=== PATIENT | female | born 1975 | race Caucasian/White ===

== ENCOUNTER 2016-11-14 08:00 | Day surgery (SDC) | payer BC, MEDICAID ==
[2016-11-14] MEDS ORDERED: Lactated Ringers 1,000 ML IV ONE (08:30)
[2016-11-14] MEDS ORDERED: Cyanocobalamin (Vitamin B12) 1,000 MCG/ML SDV IM ONE (08:30)
[2016-11-14] MEDS ORDERED: Propofol 200 MG/20 ML SDV ONE (09:09)
[2016-11-14] MEDS ORDERED: Midazolam 1 MG/ML 2 ML SDV ONE (09:09)
[2016-11-14] MEDS ORDERED: fentaNYL 100 MCG/2 ML SDV ONE (09:09)
[2016-11-14] MEDS ORDERED: Lidocaine 1% 2 ML ONE (09:22)
[2016-11-14] MEDS ORDERED: Glycopyrrolate 0.2 MG/ML 2 ML SYRINGE IVPUSH ONE (09:30)
[2016-11-14] MEDS ORDERED: MVI, Adult with Vitamin K 10 ML, Thiamine 200 MG, Chromium/Copper/Mang/Selen/Zn 1 ML in... IV ONE ×4 (10:00)
[2016-11-14 13:24] VITALS: BP 121/65
--- NOTE | 2016-11-22 15:19 | OR ---
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 OPERATIVE PROCEDURE: Upper GI endoscopy with dilation of esophagojejunostomy. ANESTHESIA: IV sedation. INDICATION FOR PROCEDURE: This is a 41-year-old status post total gastrectomy for severe gastroparesis. She did have problems with stricturing at her esophagojejunostomy. Plan is to proceed with an upper GI endoscopy with dilation as indicated. Potential risks including bleeding and perforation were discussed, and the patient wishes to proceed. DETAILS OF PROCEDURE: The patient was taken to the operating room and placed in a left lateral decubitus position. IV sedation was administered, after which the upper GI endoscope was passed orally through the length of the esophagus and into the area of the esophagojejunostomy. No retained food or fluid was noted. The patient was noted to have moderate stricture at that level. A Bard gastrointestinal balloon catheter was centered across the anastomosis and inflated to 36-[place]an size and it was held in position for 1 minute, after which the balloon catheter was deflated and withdrawn. The scope could easily then be passed through the anastomosis. No complications were noted. The scope was then withdrawn, and the procedure then concluded. The patient had a fair bit of inflammation present. We will have her restart the omeprazole 20 mg a day and have her continue the Carafate liquid 500 mg q.i.d. as well as Mylanta to be taken p.r.n. to facilitate improved oral intake. Jese Grissom MD /[id number]
== END 2016-11-14 12:30 | disposition home or self-care (01) ==
LOC: JP.SDS 08:00
PROVIDERS: ATTEND Surgery
DX: K91.89 Other postprocedural complications and disorders of digestive system (principal); K21.9 Gastro-esophageal reflux disease without esophagitis; J45.909 Unspecified asthma, uncomplicated; Z91.040 Latex allergy status; Z91.018 Allergy to other foods
CPT/HCPCS: 43233; J2250; J2704; J3010; J3411; J7120

== ENCOUNTER 2016-11-18 07:00 | Day surgery (SDC) | payer BC, MEDICAID ==
[~2016-11-18 07:00] MED LIST: Bupivacaine 0.5% 50 ML MDV ONE; Bupivacaine 0.5%/EPINEPHrine 1:200,000 50 ML MDV ONE; Lidocaine 0.5% 50 ML SDV ONE; Lidocaine 1% with EPINEPHrine 1:100,000 50 ML MDV ONE
[2016-11-18] MEDS ORDERED: Dextrose 5%-Lactated Ringers 1,000 ML IV SCH (07:45)
[2016-11-18] MEDS ORDERED: ceFAZolin 2 GM in Sodium Chloride 0.9% 50 ML IV ONE (08:00)
[2016-11-18] MEDS ORDERED: Glycopyrrolate 0.2 MG/ML 2 ML SYRINGE IVPUSH ONE (08:15)
[2016-11-18] MEDS ORDERED: fentaNYL 100 MCG/2 ML SDV ONE (08:53)
[2016-11-18] MEDS ORDERED: Midazolam 1 MG/ML 2 ML SDV ONE (08:54)
[2016-11-18] MEDS ORDERED: Propofol 200 MG/20 ML SDV ONE ×2 (08:54→09:35)
[2016-11-18] MEDS ORDERED: MVI, Adult with Vitamin K 10 ML, Thiamine 100 MG, Chromium/Copper/Mang/Selen/Zn 1 ML in... IV ONE ×4 (09:00)
[2016-11-18] MEDS ORDERED: Magnesium Citrate Solution 296 ML Bottle PO ONE (09:45)
[2016-11-18] MEDS ORDERED: Lactated Ringers 1,000 ML IV SCH (11:00)
[2016-11-18 12:00] VITALS: BP 131/77
--- NOTE | 2016-11-27 11:51 | OR ---
DATE OF PROCEDURE: 11/18/2016 PREOPERATIVE DIAGNOSES: 1. Recurrent stricturing at esophagojejunostomy. 2. Limited peripheral venous access. POSTOPERATIVE DIAGNOSES: 1. Recurrent stricturing at esophagojejunostomy. 2. Limited peripheral venous access. PROCEDURE: 1. Placement of double-lumen Rivers catheter via left subclavian vein approach (58789). 2. Upper gastrointestinal endoscopy with dilation of esophagojejunostomy (76302). ANESTHESIA: Local plus IV sedation. INDICATION FOR PROCEDURE: This is a 41-year-old status post total gastrectomy on 10/26/2016. She has had problems with recurrent stricturing at her esophagojejunostomy. This may be related to the patient recently having had a Nigel fundoplication, and the setting at the time of the gastrectomy was that of some ongoing subacute inflammation. At any rate, the plan is to proceed with upper GI endoscopy with dilation of the anastomosis as indicated. In addition, she has very limited peripheral venous access, and I think we are going to be needing to use some IVs intermittently for the next few weeks, and a Rivers catheter, therefore, will be placed. Potential risks of the procedure including bleeding, perforation, pneumohemothorax, injury to the vascular with Rivers catheter placement were gone over, and the patient wishes to proceed. DETAILS OF PROCEDURE: The patient was taken to the operating room and placed in a supine position. IV sedation was administered, after which the upper chest and neck areas were prepped and draped. The left subclavian vein was then cannulated. A guidewire was passed and then manipulated into the superior vena cava for a length of roughly 4 fingerbreadths below the original puncture site. The skin and subcutaneous tissue were anesthetized, and with additional local, a stab wound was then placed at that area 4 fingerbreadths below the original puncture site. Double-lumen Rivers catheter was then tunneled between those two points, and then cut such that the tip would lie in the area of the superior vena cava/right atrial junction. The Rivers catheter was then placed with a dilator and peel-away catheter without difficulty. Good in and outflow through both ports were noted, and they were flushed with heparinized saline. The original skin puncture site was closed with a 4-0 Vicryl subcuticular stitch, and the catheter sutured to skin with some 3-0 nylon stitch. Dressing was applied. Attention was then taken to the upper GI endoscopy. With the patient remaining in the supine position, the upper GI endoscope was passed orally through the length of the esophagus and down to the level of the esophagojejunostomy. The patient was noted to have some inflammation noted at that area and moderate stricture with 1 cm scope not quite being able to be passed through that anastomosis. The Bard gastrointestinal balloon catheter was centered across the anastomosis and inflated to 36-Polish size. This was held in position for 1 minute, after which the balloon catheter was deflated and withdrawn. The scope could easily then be passed through the anastomosis. No complications were noted, and the patient was taken to the recovery room in satisfactory condition. One additional issue in this patient is some constipation. She has not had a bowel movement for several days. We will send her home with a bottle of mag citrate, and then, if that is not successful, she will be instructed to take MiraLAX in the colonoscopy prep type range of dosing. Otherwise, she will be in contact with us through the week to see how things are going. Jese Grissom MD /[id number]
== END 2016-11-18 12:02 | disposition home or self-care (01) ==
LOC: JP.SDS 07:00
PROVIDERS: ATTEND Surgery
DX: K91.89 Other postprocedural complications and disorders of digestive system (principal); Z45.2 Encounter for adjustment and management of vascular access device; Z88.8 Allergy status to other drugs, medicaments and biological substances; Z91.018 Allergy to other foods; Z91.040 Latex allergy status
CPT/HCPCS: 36558; 43249; A9270; J0690; J1642; J2250; J2704; J3010; J3411; J7042; J7050; J7120

== ENCOUNTER 2016-11-24 07:19 | Observation (INO) | payer BC, MEDICAID ==
[2016-11-24] MEDS ORDERED: Cyanocobalamin (Vitamin B12) 1,000 MCG/ML SDV IM ONE (08:00)
[2016-11-24] MEDS ORDERED: Lactated Ringers 1,000 ML IV SCH (08:00)
[2016-11-24] MEDS ORDERED: Glycopyrrolate 0.2 MG/ML 2 ML SYRINGE IVPUSH ONE (08:00)
[2016-11-24] MEDS ORDERED: MVI, Adult with Vitamin K 10 ML, Thiamine 200 MG, Chromium/Copper/Mang/Selen/Zn 1 ML in... IV ONE ×4 (08:30)
[2016-11-24] MEDS ORDERED: Propofol 200 MG/20 ML SDV ONE (09:47)
[2016-11-24] MEDS ORDERED: Midazolam 1 MG/ML 2 ML SDV ONE (09:47)
[2016-11-24] MEDS ORDERED: fentaNYL 100 MCG/2 ML SDV ONE (09:47)
[2016-11-24] MEDS ORDERED: Ondansetron 4 MG/2 ML SDV IVPUSH ONE (12:10)
[2016-11-24] MEDS: HYDROmorphone 1 MG/ML Syringe IVPUSH PRN ×2 (13:18→13:39)
[2016-11-24] MEDS: Lidocaine 2% 60 ML, Alum Hydrox/Mag Hydrox/Simeth 360 ML PO PRN ×4 (15:00→15:45)
--- NOTE | 2016-11-24 15:09 | CT ---
Abdomen wo Cont HISTORY: *Pain. Dose: Total DLP 2072 COMPARISON: Prior CT scan 10/14/2016. FINDINGS: Patient apparently had recent endoscopy. Patient has had prior gastric bypass. The majorit y of the stomach appears to been removed. No free air adjacent to the gastric remnant and gastrojeju nostomy anastomosis. No free air in the nondependent abdomen. The liver, spleen, pancreas, adrenal glands and kidneys appear normal. The pelvis is unremarkable. Impression: No evidence for complication post endoscopy.
[2016-11-24] MEDS ORDERED: Naloxone 0.4 MG/ML SDV IV PRN (16:49)
[2016-11-24] MEDS ORDERED: LORazepam 1 MG Tab PO PRN (16:52)
[2016-11-24] MEDS ORDERED: LORazepam 2 MG/ML MDV IVPUSH PRN (16:53)
[2016-11-24] MEDS ORDERED: Albuterol/Ipratropium 3.0-0.5 MG/3 ML Neb Soln INH PRN (16:53)
[2016-11-24] MEDS: Pantoprazole 40 MG Vial IV SCH (18:08)
[2016-11-24] MEDS: Scopolamine 1.5 MG Transdermal Patch TOP SCH (18:08)
[2016-11-24] MEDS: Sucralfate Suspension 1 GM/10 ML Cup PO SCH ×2 (18:09→20:41)
[2016-11-24] MEDS: Meperidine 300 MG/30 ML PCA Vial IV PRN (18:11)
[2016-11-24] MEDS: VERIFY SCOPOLAMINE PATCH TOP SCH (18:20)
[2016-11-24] MEDS: Dextrose 5%-Lactated Ringers 1,000 ML IV SCH (18:22)
[2016-11-24] MEDS: Ondansetron 4 MG/2 ML SDV IVPUSH PRN (18:54)
[2016-11-24] MEDS: Metoclopramide 10 MG/2 ML SDV IVPUSH SCH (19:10)
[2016-11-24] MEDS: Formoterol/Mometasone 200-5 MCG 8.8 GM Inhaler IH SCH (20:41)
[2016-11-24] MEDS: Albuterol/Ipratropium 3.0-0.5 MG/3 ML Neb Soln INH SCH (20:44)
[2016-11-24] MEDS: ClonazePAM 1 MG Tab PO SCH (20:44)
[2016-11-24] MEDS: Montelukast 5 MG Tab.Chew PO SCH (20:45)
[2016-11-25] MEDS: Metoclopramide 10 MG/2 ML SDV IVPUSH SCH ×4 (01:18→17:41)
[2016-11-25] MEDS: Dextrose 5%-Lactated Ringers 1,000 ML IV SCH (02:35)
[2016-11-25] MEDS: Sucralfate Suspension 1 GM/10 ML Cup PO SCH ×4 (06:21→20:19)
[2016-11-25] MEDS: Potassium Chloride 20 MEQ, Lidocaine 1% 2 ML in Sodium Chloride 0.9% 100 ML IV SCH ×4 (08:37→14:38)
[2016-11-25] MEDS: Magnesium Sulfate/Water 2 GM in Premix Bag 1 BAG IV SCH ×4 (08:37→20:18)
[2016-11-25] MEDS: Tiotropium Inhaler 18 MCG Inhalation Powder Cap Kit of 5 INH SCH (09:49)
[2016-11-25] MEDS: Albuterol/Ipratropium 3.0-0.5 MG/3 ML Neb Soln INH SCH ×4 (09:49→20:15)
[2016-11-25] MEDS: Formoterol/Mometasone 200-5 MCG 8.8 GM Inhaler IH SCH ×2 (09:49→20:23)
[2016-11-25] MEDS: BREO ELLIPTA INH SCH (09:50)
[2016-11-25] MEDS: VERIFY SCOPOLAMINE PATCH TOP SCH (09:52)
[2016-11-25] MEDS: Meperidine 300 MG/30 ML PCA Vial IV PRN (10:39)
--- NOTE | 2016-11-25 14:34 | PN ---
DATE OF SERVICE: 11/25/2016 The patient has been afebrile with stable vital signs. Overnight, she was able to start taking liquids satisfactorily. The nausea appears to have cleared. Her electrolytes are quite disturbed with low potassium and magnesium. I think we will keep her to re- establish adequate oral intake as well as correct electrolyte disturbances, which would be difficult to give orally at this stage of the game. Otherwise, we will maximize activity and work with pulmonary toilet. Jese Grissom MD /[id number]
[2016-11-25] MEDS: Ondansetron 4 MG/2 ML SDV IVPUSH PRN ×2 (16:01→20:15)
[2016-11-25] MEDS: Potassium Phosphates 15 MMOLE, Lidocaine 1% 2 ML in Sodium Chloride 0.9% 150 ML IV SCH ×2 (17:40→22:01)
[2016-11-25] MEDS: Pantoprazole 40 MG Vial IV SCH (17:41)
[2016-11-25] MEDS: ClonazePAM 1 MG Tab PO SCH (20:15)
[2016-11-25] MEDS: Montelukast 5 MG Tab.Chew PO SCH (22:03)
[2016-11-26] MEDS: Metoclopramide 10 MG/2 ML SDV IVPUSH SCH ×2 (00:37→05:44)
[2016-11-26] MEDS: Magnesium Sulfate/Water 2 GM in Premix Bag 1 BAG IV SCH ×7 (00:37→23:32)
[2016-11-26] MEDS: Potassium Phosphates 15 MMOLE, Lidocaine 1% 2 ML in Sodium Chloride 0.9% 150 ML IV SCH (00:38)
[2016-11-26] MEDS: Dextrose 5%-Lactated Ringers 1,000 ML IV SCH ×2 (02:01→12:14)
[2016-11-26] MEDS: Albuterol/Ipratropium 3.0-0.5 MG/3 ML Neb Soln INH SCH ×4 (07:15→21:31)
[2016-11-26] MEDS: Formoterol/Mometasone 200-5 MCG 8.8 GM Inhaler IH SCH ×2 (07:18→21:30)
[2016-11-26] MEDS: Tiotropium Inhaler 18 MCG Inhalation Powder Cap Kit of 5 INH SCH (07:19)
[2016-11-26] MEDS: VERIFY SCOPOLAMINE PATCH TOP SCH (08:02)
[2016-11-26] MEDS: Sucralfate Suspension 1 GM/10 ML Cup PO SCH ×4 (08:02→19:35)
[2016-11-26] MEDS: BREO ELLIPTA INH SCH (08:03)
[2016-11-26] MEDS: Metoclopramide 10 MG Tab PO SCH ×3 (09:33→21:32)
[2016-11-26] MEDS: Potassium Chloride 20 MEQ, Lidocaine 1% 2 ML in Sodium Chloride 0.9% 100 ML IV SCH ×3 (09:34→14:25)
[2016-11-26] MEDS: Potassium Acetate 20 MEQ, Lidocaine 1% 2 ML in Sodium Chloride 0.9% 100 ML IV SCH ×3 (15:20→21:21)
[2016-11-26] MEDS: Ondansetron 4 MG/2 ML SDV IVPUSH PRN (17:45)
[2016-11-26] MEDS: Pantoprazole 40 MG Vial IV SCH (17:51)
--- NOTE | 2016-11-26 21:00 | PN ---
DATE OF SERVICE: 11/26/2016 The patient has been afebrile with stable vital signs. Oral intake was 1000 mL, although not much in terms of nutritional value. We will try to have Dietary see the patient and increase her protein intake and such. Potassium remains low and will resume her KCl and potassium acetate today. Recheck labs in the morning. Continue magnesium supplementation. I will switch her over to oral Reglan today and see how that goes, and she may be ready for discharge home tomorrow. Jese Grissom MD /[id number]
[2016-11-26] MEDS: ClonazePAM 1 MG Tab PO SCH (21:31)
[2016-11-26] MEDS: Montelukast 5 MG Tab.Chew PO SCH (21:31)
[2016-11-27] MEDS: Magnesium Sulfate/Water 2 GM in Premix Bag 1 BAG IV SCH ×6 (03:18→23:42)
[2016-11-27] MEDS: Metoclopramide 10 MG Tab PO SCH (05:43)
[2016-11-27] MEDS: Albuterol/Ipratropium 3.0-0.5 MG/3 ML Neb Soln INH SCH ×4 (07:18→20:30)
[2016-11-27] MEDS: Formoterol/Mometasone 200-5 MCG 8.8 GM Inhaler IH SCH ×2 (07:21→20:30)
[2016-11-27] MEDS: Tiotropium Inhaler 18 MCG Inhalation Powder Cap Kit of 5 INH SCH (07:22)
[2016-11-27] MEDS: Sucralfate Suspension 1 GM/10 ML Cup PO SCH ×4 (07:59→20:29)
[2016-11-27] MEDS ORDERED: Prochlorperazine 10 MG Tab PO PRN (08:00)
[2016-11-27] MEDS ORDERED: Polyethylene Glycol 3350 Powder 119 GM Bottle PO ONE (09:00)
[2016-11-27] MEDS ORDERED: MVI, Adult with Vitamin K 10 ML, Thiamine 100 MG, Magnesium Sulfate 2 GM, Folic Acid 1 ... IV ONE ×5 (09:00)
[2016-11-27] MEDS ORDERED: DULoxetine 20 MG Cap PO SCH (09:00)
[2016-11-27] MEDS: VERIFY SCOPOLAMINE PATCH TOP SCH (09:29)
[2016-11-27] MEDS: DULoxetine 30 MG Cap PO SCH ×2 (09:32→20:29)
[2016-11-27] MEDS: Bacitracin Oint 1 GM U/D Packet TOP SCH ×3 (09:37→20:29)
[2016-11-27] MEDS: BREO ELLIPTA INH SCH (09:43)
--- NOTE | 2016-11-27 11:27 | PN ---
DATE OF SERVICE: 11/27/2016 SUBJECTIVE: She continues to report an increase amount of nausea. She feels like the Reglan really is not helping. Vital signs have been stable. Her oral intake was only 300, output was 350. She continues to report mid epigastric abdominal pain. Potassium today was 3.7. REVIEW OF SYSTEMS: Remainder of review of systems negative for any pertinent positives and negatives. OBJECTIVE: GENERAL: Shamika Durán is a 41-year-old female. She is alert and orientated. VITAL SIGNS: TPR is 100, 112, 18, and blood pressure is 149/81. HEENT: Negative. NECK: Supple. HEART: Regular rate and rhythm. LUNGS: Clear. ABDOMEN: There is tenderness noted in the mid epigastric area, otherwise tender. EXTREMITIES: Without peripheral edema. ASSESSMENT: Dysphagia, hypokalemia, persistent chronic nausea, status post gastrectomy. PLAN: 1. Dietary consult. 2. Discontinue Reglan. 3. Compazine 10 mg q.6 hours p.r.n. nausea. 4. MultiVites to 1 L to run over 4 hours. 5. Restart Cymbalta 60 mg twice a day. She saw Abran Roca MD, and he recommended that she take three 20 mg twice a day as they are smaller. Continue to evaluate. Bacitracin ointment to tape burn she has from her Rivers catheter. 6. We will check labs; CBC and CMP in a.m. Shavon Siddiqi PA-C /[id number]
[2016-11-27] MEDS: Dextrose 5%-Lactated Ringers 1,000 ML IV SCH ×2 (13:40→23:43)
[2016-11-27] MEDS: Ondansetron 4 MG/2 ML SDV IVPUSH PRN (13:46)
[2016-11-27] MEDS ORDERED: Acetaminophen Soln 650 MG/20.3 ML UD Cup PO PRN (15:05)
[2016-11-27] MEDS: Scopolamine 1.5 MG Transdermal Patch TOP SCH (18:17)
[2016-11-27] MEDS: ClonazePAM 1 MG Tab PO SCH (20:30)
[2016-11-27] MEDS: Montelukast 5 MG Tab.Chew PO SCH (20:31)
[2016-11-27] MEDS ORDERED: Pantoprazole 40 MG Tab.CR PO SCH (21:00)
[2016-11-28] MEDS: Magnesium Sulfate/Water 2 GM in Premix Bag 1 BAG IV SCH (03:24)
[2016-11-28] MEDS: Albuterol/Ipratropium 3.0-0.5 MG/3 ML Neb Soln INH SCH (07:17)
[2016-11-28] MEDS: Formoterol/Mometasone 200-5 MCG 8.8 GM Inhaler IH SCH (07:18)
[2016-11-28] MEDS: Tiotropium Inhaler 18 MCG Inhalation Powder Cap Kit of 5 INH SCH (07:18)
[2016-11-28 07:31] VITALS: BP 127/69
[2016-11-28] MEDS: Sucralfate Suspension 1 GM/10 ML Cup PO SCH (07:40)
[2016-11-28] MEDS: DULoxetine 30 MG Cap PO SCH (07:40)
[2016-11-28] MEDS ORDERED: Scopolamine 1.5 MG Transdermal Patch TOP ONE (10:00)
--- NOTE | 2016-11-29 18:24 | DISCH ---
FINAL DIAGNOSIS: 1. Pain and dehydration, status post upper GI endoscopy with dilation gastrojejunostomy. 2. Hypokalemia, hypophosphatemia, and hypomagnesemia. 3. History of anxiety and depression. 4. History of asthma. OPERATIVE PROCEDURE: Upper GI endoscopy with dilation gastrojejunostomy. HOSPITAL COURSE: This is a 41-year-old female presenting with recurrent dehydration and stricturing following a total gastrectomy for severe gastroparesis. She has had problems with stricturing at the gastrojejunostomy and underwent what otherwise appeared to be an unremarkable upper GI endoscopy with dilation. She had quite a bit of pain after the procedure. CT scan showed no complications however. She has had quite low potassium phosphate and magnesium, all of which have been supplemented and are back to a normal range at this time. She is now resuming adequate oral intake. She will be discharged home. She will have a scopolamine patch replaced today and was scheduled for empiric upper endoscopy with probable dilation on this coming Sunday, with labs to be rechecked at that time. Jese Grissom MD /[id number]
--- NOTE | 2016-11-29 19:45 | OR ---
DATE OF PROCEDURE: 11/24/2016 PREOPERATIVE DIAGNOSIS: Recurrent stricturing at the esophagojejunostomy. 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 OPERATIVE PROCEDURE: Upper GI endoscopy with dilation of esophagojejunostomy (27765). ANESTHESIA: IV sedation. INDICATION FOR PROCEDURE: This is a 41-year-old presenting with some recurrent stricturing at her esophagojejunostomy. Plan is to proceed with upper GI endoscopy with dilation as indicated. Potential risks including bleeding and perforation were discussed, and the patient wishes to proceed. DETAILS OF PROCEDURE: The patient was taken to the operating room and placed in a left lateral decubitus position. IV sedation was administered, after which the upper GI endoscope was passed orally through the esophagus, into the area of the esophagojejunostomy. At that point, the patient was noted to have stricturing present with a 1 cm scope not quite being able to be passed through the area of the fluoroscopic surveillance. A Bard gastrostomy catheter was then centered across the anastomosis and this has been inflated to 45-Chinese size to a level 1 which is 30 PSI. Pfannenstiel incision for 1 minute, after which the balloon catheter was deflated and withdrawn. The scope could easily then be passed through the anastomosis. No complications were evident and the procedure concluded. The patient was taken to the recovery room in satisfactory condition. Jese Grissom MD /[id number]
== END 2016-11-28 13:03 | disposition home or self-care (01) ==
LOC: JP.SDS 07:19 → JP.ICU 16:20 → INTOOBSV 11-25 08:00 → OBSVTOIN 11-25 08:00 → JP.2SS 11-25 10:01 → JP.ICU 11-25 10:01 → UNDODISIN 11-28 10:31
PROVIDERS: ADMIT Surgery; ATTEND Surgery
DX: K22.2 Esophageal obstruction (principal); K31.89 Other diseases of stomach and duodenum; E53.8 Deficiency of other specified B group vitamins; K91.2 Postsurgical malabsorption, not elsewhere classified; Z98.84 Bariatric surgery status; Z98.0 Intestinal bypass and anastomosis status; J45.909 Unspecified asthma, uncomplicated; F32.9 Major depressive disorder, single episode, unspecified; E66.9 Obesity, unspecified; Z68.43 Body mass index [BMI] 50.0-59.9, adult; E87.6 Hypokalemia; E83.42 Hypomagnesemia; Z87.19 Personal history of other diseases of the digestive system; E83.39 Other disorders of phosphorus metabolism; G89.18 Other acute postprocedural pain
CPT/HCPCS: 36415; 43249; 74150; 80048; 80053; 83735; 84100; 85027; 94640; 94762; 96365; 96366; 96367; 96372; 96375; 96376; A9270; C9113; G0378; J1170; J1642; J2175; J2250; J2405; J2704; J2765; J3010; J3411; J3420; J3475; J3480; J7030; J7040; J7042; J7120; J7620; J3490

== ENCOUNTER 2016-12-02 06:47 | Day surgery (SDC) | payer BC, MEDICAID ==
[2016-12-02] MEDS ORDERED: Lactated Ringers 1,000 ML IV ONE (07:00)
[2016-12-02] MEDS ORDERED: Propofol 200 MG/20 ML SDV ONE (07:49)
[2016-12-02] MEDS ORDERED: fentaNYL 100 MCG/2 ML SDV ONE (07:49)
[2016-12-02] MEDS ORDERED: Midazolam 1 MG/ML 2 ML SDV ONE (07:49)
[2016-12-02] MEDS ORDERED: Sodium Chloride 0.9% 10 ML Syringe FLUSH STA (07:50)
[2016-12-02] MEDS ORDERED: Cyanocobalamin (Vitamin B12) 1,000 MCG/ML SDV IM ONE (08:00)
[2016-12-02] MEDS ORDERED: Ondansetron 4 MG/2 ML SDV IVPUSH ONE (08:30)
[2016-12-02] MEDS ORDERED: Magnesium Sulfate/Water 2 GM in Premix Bag 1 BAG IV ONE (08:30)
[2016-12-02] MEDS ORDERED: Glycopyrrolate 0.2 MG/ML 2 ML SYRINGE IVPUSH ONE (09:00)
[2016-12-02] MEDS: Sodium Chloride 0.9% 10 ML Syringe FLUSH PRN ×4 (09:00→10:36)
[2016-12-02] MEDS ORDERED: MVI, Adult with Vitamin K 10 ML, Thiamine 200 MG, Chromium/Copper/Mang/Selen/Zn 1 ML in... IV ONE ×4 (09:15)
[2016-12-02 10:29] VITALS: BP 116/84
--- NOTE | 2016-12-04 09:09 | OR ---
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 POSTOPERATIVE DIAGNOSIS: Stricture at the esophagojejunostomy. OPERATIVE PROCEDURE: Upper GI endoscopy with dilation of esophagojejunostomy. ANESTHESIA: IV sedation. INDICATION FOR PROCEDURE: This is a 41-year-old, status post recent total gastrectomy, presenting with some recurrent stricturing at esophagojejunostomy. Plan is to proceed with an upper GI endoscopy with dilation as indicated. Potential risks including bleeding and perforation were discussed and the patient wishes to proceed. DETAILS OF PROCEDURE: The patient was taken to the operating room and placed in a left lateral decubitus position. IV sedation was administered, after which the upper GI endoscope was passed orally through the esophagus and into the area of the distal esophagus where the patient did have a moderate stricture at the esophagojejunostomy. A Bard gastrostomy balloon catheter was centered across the anastomosis and inflated to 36-Nepalese size and it was held in position for 1 minute and after that the balloon catheter deflated and withdrawn. The scope was easily then be passed through the anastomosis. No complications were noted and the patient tolerated the procedure well and was taken to the recovery room in a satisfactory condition. The patient's labs today shows unremarkable CBC and electrolytes are also normal, other than her magnesium is quite low at 1.4. We will give her 2 g of magnesium sulfate in the postoperative period and then begin magnesium oxide 400 mg a day, #60 with refill x2, which she will call in, and she will be set up as followup with Shavon Siddiqi on , 12/07/2016 at [facility]. Jese Grissom MD /[id number]
== END 2016-12-02 10:49 | disposition home or self-care (01) ==
LOC: JP.SDS 06:47
PROVIDERS: ATTEND Surgery
DX: K91.89 Other postprocedural complications and disorders of digestive system (principal); Z88.5 Allergy status to narcotic agent; Z91.040 Latex allergy status; Z79.899 Other long term (current) drug therapy
CPT/HCPCS: 36415; 43245; 80053; 83735; 85027; J1642; J2250; J2405; J2704; J3010; J3411; J3420; J3475; J7050; J7120

== ENCOUNTER 2016-12-07 11:34 | Day surgery (SDC) | payer BC, MEDICAID ==
[2016-12-07] MEDS ORDERED: fentaNYL 100 MCG/2 ML SDV ONE (12:08)
[2016-12-07] MEDS ORDERED: Propofol 200 MG/20 ML SDV ONE (12:08)
[2016-12-07] MEDS ORDERED: Midazolam 1 MG/ML 2 ML SDV ONE (12:08)
[2016-12-07] MEDS ORDERED: Ondansetron 4 MG/2 ML SDV IVPUSH PRN (12:45)
[2016-12-07] MEDS ORDERED: Lactated Ringers 1,000 ML IV ONE (12:45)
[2016-12-07] MEDS ORDERED: Cyanocobalamin (Vitamin B12) 1,000 MCG/ML SDV IM ONE (13:00)
[2016-12-07] MEDS ORDERED: Glycopyrrolate 0.2 MG/ML 2 ML SYRINGE IVPUSH ONE (13:30)
[2016-12-07] MEDS ORDERED: MVI, Adult with Vitamin K 10 ML, Thiamine 200 MG, Chromium/Copper/Mang/Selen/Zn 1 ML in... IV ONE ×4 (13:45)
[2016-12-07] MEDS ORDERED: Magnesium Citrate Solution 296 ML Bottle PO ONE (14:30)
[2016-12-07 15:32] VITALS: BP 122/66
--- NOTE | 2016-12-08 11:21 | OR ---
DATE OF PROCEDURE: 12/07/2016 PROCEDURE: EGD. BALLOON USED: 36-[place]an, dilation number approximately 7. Percentage narrowed: Approximately 60%. COMPLICATION: None. FOOD OR BAGGAGE HANDLING RAMPMAN: None. 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 INDICATIONS: Risks, benefits, alternatives, and limitations, including, but not limited to infection, bleeding, and perforation were explained to the patient who wished to proceed. PROCEDURE IN DETAIL: The patient was placed in the left lateral decubitus position. The EGD scope was introduced and advanced to the gastrojejunal anastomosis. This was narrowed but the scope was able to be passed through this. The Vivek-en-Y limb itself and respective pouch showed no abnormalities. A 36-[place]an balloon was then introduced and dilated to a and dilated. No other abnormalities were noted. The scope was removed. The esophagus was inspected without abnormality. The patient tolerated the procedure well. Noah Rene MD /[id number]
== END 2016-12-07 16:10 | disposition home or self-care (01) ==
LOC: JP.SDS 11:34
PROVIDERS: ATTEND Surgery
DX: K91.89 Other postprocedural complications and disorders of digestive system (principal); J45.909 Unspecified asthma, uncomplicated; K21.9 Gastro-esophageal reflux disease without esophagitis; F32.9 Major depressive disorder, single episode, unspecified; Z98.84 Bariatric surgery status; Z91.040 Latex allergy status; Z91.018 Allergy to other foods; Z88.8 Allergy status to other drugs, medicaments and biological substances; R10.84 Generalized abdominal pain; R11.0 Nausea; Z98.890 Other specified postprocedural states; Z88.5 Allergy status to narcotic agent; Z91.010 Allergy to peanuts; Z91.030 Bee allergy status; Z91.041 Radiographic dye allergy status; Z91.048 Other nonmedicinal substance allergy status; Z91.09 Other allergy status, other than to drugs and biological substances
CPT/HCPCS: 43233; 74177; A9270; J1642; J2250; J2704; J3010; J3411; J3420; J7030; J7120

== ENCOUNTER 2016-12-08 13:25 | Inpatient (IN) | payer BC, MEDICAID ==
[2016-12-08] MEDS ORDERED: Acetaminophen 325 MG Tab PO PRN (13:59)
[2016-12-08] MEDS ORDERED: Lactated Ringers 1,000 ML IV ONE (14:00)
[2016-12-08] MEDS ORDERED: Acetaminophen 650 MG Supp RECTAL PRN (14:00)
[2016-12-08] MEDS ORDERED: Ondansetron 4 MG/2 ML SDV IVPUSH PRN (14:02)
[2016-12-08] MEDS: Metoclopramide 10 MG/2 ML SDV IVPUSH SCH ×2 (14:37→21:08)
[2016-12-08] MEDS: Pantoprazole 40 MG Vial IV SCH (14:37)
[2016-12-08] MEDS ORDERED: Magnesium Citrate Solution 296 ML Bottle PO ONE (15:00)
[2016-12-08] MEDS ORDERED: Fluticasone Propionate Nasal Spray 16 GM Bottle NASBOTH PRN (15:17)
[2016-12-08] MEDS ORDERED: ALPRAZolam 0.5 MG Tab PO PRN (15:17)
[2016-12-08] MEDS ORDERED: Levalbuterol Tartrate HFA 15 GM Inhaler INH PRN (15:17)
[2016-12-08] MEDS ORDERED: Levalbuterol HCl 1.25 MG/3 ML Neb NEB PRN (15:17)
[2016-12-08] MEDS: Sucralfate Suspension 1 GM/10 ML Cup PO SCH ×2 (16:58→21:06)
[2016-12-08] MEDS: Dextrose 5%-Lactated Ringers 1,000 ML IV SCH (18:13)
[2016-12-08] MEDS ORDERED: ClonazePAM 0.5 MG Tab PO SCH (21:00)
[2016-12-08] MEDS: DULoxetine 30 MG Cap PO SCH (21:08)
[2016-12-08] MEDS: Formoterol/Mometasone 200-5 MCG 8.8 GM Inhaler IH SCH (21:08)
[2016-12-08] MEDS: Celecoxib 100 MG Cap PO SCH (21:09)
--- NOTE | 2016-12-08 21:37 | PCM.HP ---
H&P History of Present Illness - General Date of Service: 12/08/16 Admit Problem/Dx: Admission Diagnosis/Problem Admission Diagnosis/Problem Pain Source of Information: Patient History Limitations: Reports: No limitations - History of Present Illness Initial Comments - Free Text/Narative: Shamika has had a Partial Gastrectomy on 11/01/16.Yesterday she presented to the clinic with mid epigastric pain and not able to eat or drink anything. She states she knows something is wrong. Shamika had gotten Dilaudid 2 mg #50 on 11/28/16 for persistant LUQ Pain. Shamika was taking the Dilaudid for pain but everything would get stuck. She had an EGD with Dilation and CT Scan. She was kilated to a [address] Scan was normal yesterday. Today she was in ACU with her mom and she told the nurses that she is having dry heaves left sided abdominal pain, hasn't urinated since she left the hospital yesterday afternoon, unable to eat, drink or take her scheduled medications, nauseated, vomiting and dry heaving. The ACU nurses told her to walk over to the clinic and get things checked out. She had 4 BMs today. Pain is a 7/10 with no radiation, Constant burning, pressure type pain without radiation. Has not been able to take her scheduled medication since she left ACU yesterday. Today she has sips of water and she has hdad little of a cracker that she crushed between two fingers Wonders how she can manage at home because she is sick, Has a Scop patch on for nausea and taking Zofran. Severity: mild Improves with: Reports: Other (Dilaudid) Worsens with: Reports: Eating, Movement Context: Reports: other (Kiara is holding her abdomen rocking back and forth. ) Associated Symptoms: Reports: weakness, other Abdomen Pain Score (Numeric/FACES): 6 Left Shoulder Pain Score (Numeric/FACES): 6 Epigastric Pain Score (Numeric/FACES): 4 - Related Data Allergies/Adverse Reactions: Allergies Allergy/AdvReac Type Severity Reaction Status Date / Time banana Allergy Severe Swollen Verified 11/30/16 10:31 Tongue walnut Allergy Intermediate Swollen Verified 11/30/16 10:31 Tongue latex Allergy Cannot Verified 11/30/16 10:31 Remember mold Allergy Wheezing Verified 11/30/16 10:31 morphine Allergy Hives Verified 11/30/16 10:31 pollen extracts Allergy Wheezing Verified 11/30/16 10:31 DUST Allergy Unknown Wheezing Uncoded 11/30/16 10:31 SMOKE AdvReac Intermediate Bronchospas Uncoded 11/30/16 10:31 ms Home Medications: Home Meds DULoxetine [Cymbalta] 60 mg PO BID 06/29/13 [History] Cetirizine [ZyrTEC] 10 mg PO DAILY 01/02/14 [History] Montelukast [Singulair] 10 mg PO DAILY #30 tab 01/10/14 [Rx] Albuterol/Ipratropium [DuoNeb 3.0-0.5 MG/3 ML] 3 ml INH Q4H PRN 12/07/15 [ History] Fluticasone Propionate [Flonase] 2 spray NASBOTH DAILY PRN 12/07/15 [History] ALPRAZolam [Alprazolam] 1 mg PO TID PRN 07/10/16 [History] ClonazePAM [KlonoPIN] 1 mg PO BEDTIME 07/10/16 [History] Ondansetron [Zofran ODT] 4 mg PO Q4H PRN 07/10/16 [History] Bariatric [place]eltaway Vitamin 1 tab PO DAILY 11/09/16 [History] Budesonide/Formoterol Fumarate [Symbicort 160-4.5 Mcg Inhaler] 2 puff IH BID [History] Cyanocobalamin (Vitamin B-12) [Vitamin B-12] 500 mcg SL DAILY 11/09/16 [History] Fluticasone/Vilanterol [Breo Ellipta 200-25 Mcg INH] 1 each IH DAILY 11/09/16 [ History] Lactobacillus Acidophilus [Probiotic] 1 each PO DAILY 11/09/16 [History] Levalbuterol Tartrate [Xopenex HFA] 2 puff INH Q4H PRN 11/09/16 [History] Omeprazole Magnesium [Prilosec Otc] 40 mg PO BID 11/09/16 [History] Tiotropium [Spiriva] 18 mcg INH DAILY 11/09/16 [History] traMADol [Ultram] 50 mg PO Q6H PRN 11/09/16 [History] Meperidine HCl [Demerol] 50 - 100 mg PO Q4HR PRN 11/14/16 [History] Scopolamine [Transderm-Scop] 1.5 mg TOP Q3D PRN 11/14/16 [History] Acetaminophen [Mapap] 650 mg PO Q4H 11/30/16 [History] Levalbuterol HCl [Xopenex] 1.25 mg NEB Q6H PRN 11/30/16 [History] Multivitamin with Minerals [Multiple Vitamin] 1 tab PO DAILY 11/30/16 [History] Past Medical History HEENT History: Reports: Sinusitis, Other (see below) Other HEENT History: TMJ. soften Palate Cardiovascular History: Reports: Heart murmur, Other (see below) Other Cardiovascular History: Mitral Valve Regurgitation. Left heart faliure "stiff" Respiratory History: Reports: Asthma, Bronchitis, recurrent, COPD, Intubation, previous, Pneumonia, recurrent, Sleep apnea, SOB, Other (see below) Other Respiratory History: polyp on laynex; intubated x2 after "quit breathing" . c-pap Gastrointestinal History: Reports: Bowel obstruction, Cholelithiasis, Chronic constipation, GERD Genitourinary History: Reports: Urinary incontinence TUBE CLEANER History: Reports: Polycystic Ovaries, Musculoskeletal History: Reports: Back pain, chronic, Fracture, Fibromyalgia, Other (see below) Other Musculoskeletal History: knee/ankle pain bilateral Neurological History: Reports: Concussion, Headaches, chronic, Migraines, Seizure, Vertigo Psychiatric History: Reports: Anxiety, Depression, Eating disorders, Mood swings , Panic attack Endocrine/Metabolic History: Reports: Obesity/BMI 30+, Vitamin D deficiency, Other (see below) Other Endocrine/Metabolic History: prediabetic/adrenal gland deficiency Hematologic History: Reports: Anemia, B12 deficiency, Folic acid Immunologic History: Reports: Other (see below) Other Immunologic History: due to steriod use for medical reasons, "they" feel her immune system is compromised Oncologic (Cancer) History: Reports: None Dermatologic History: Reports: Cellulitis, Other (see below) Other Dermatologic History: biopsy of face for moles - Infectious Disease History Infectious Disease History: Reports: Chicken pox, Meningitis, Shingles Other Infectious Disease History: Viral meningitis - Past Surgical History Head Surgeries/Procedures: Reports: None HEENT Surgical History: Reports: LASIK, Oral surgery Cardiovascular Surgical History: Reports: Other (see below) Other Cardiovascular Surgeries/Procedures: angiogram Respiratory Surgical History: Reports: None GI Surgical History: Reports: Cholecystectomy, EGD, Esophageal dilatation, Hernia repair/other, Nigel fundoplication, Other (see below) Other GI Surgeries/Procedures: gastrectomy; gastric tumor removed; enlarged liver-has had biopsy Female Surgical History: Reports: section, Tubal ligation Endocrine Surgical History: Reports: None Neurological Surgical History: Reports: None Musculoskeletal Surgical History: Reports: None Dermatological Surgical History: Reports: Skin biopsy Social & Family History - Family History Family Medical History: Noncontributory Cardiac: Reports: Pacemaker Respiratory: Reports: Asthma, COPD, Other (see below) Other Respiratory Family Hisory: bronchitis GI: Reports: Irritable bowel syndrome OBGYN: Reports: Musculoskeletal: Reports: Arthritis Neurological: Reports: Cerebral aneurysms Psychiatric: Reports: Anxiety, Depression Endocrine/Metabolic: Reports: Diabetes, type II, Hypothyroidism, Obesity/MBI 30+ , Vitamin D deficiency Hematologic: Reports: B12 deficiency Immunologic: Reports: None Oncologic: Reports: Brain, Lung, Skin - Tobacco Use Smoking Status *Q: Never Smoker Second Hand Smoke Exposure: Yes - Caffeine Use Caffeine Use: Reports: None Other Caffeine Use: 2 cups coffee per day and 1-2 sodas - Alcohol Use Days Per Week of Alcohol Use: 0 - Recreational Drug Use Recreational Drug Use: No - Living Situation & Occupation Living situation: Reports: , with family (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 General: Reports: fatigue HEENT: Reports: no symptoms Pulmonary: Reports: No Symptoms, Other (denies wheezing ) Cardiovascular: Reports: no symptoms Gastrointestinal: Reports: Abdominal pain, Constipation, Decreased appetite, Nausea Musculoskeletal: Reports: back pain, joint pain (Both of these sym) Skin: Reports: no symptoms Psychiatric: Reports: depression, mood lability, anxiety Neurological: Reports: No Symptoms Hematologic/Lymphatic: Reports: no symptoms Immunologic: Reports: environmental allergy, other (multiple allergies and asthma) Exam - Exam Exam: See Below - Vital Signs Vital Signs: Last Vital Signs Temp 98.7 F 12/08/16 19:15 Pulse 83 12/08/16 19:15 Resp 16 12/08/16 19:15 BP 132/64 12/08/16 19:15 Pulse Ox 95 12/08/16 19:15 Weight: 290 lb - Exam Quality Assessment: DVT prophylaxis General: alert, oriented HEENT: PERRLA Neck: supple, trachea midline Lungs: Clear to auscultation, Normal respiratory effort Cardiovascular: regular rate, regular rhythm Abdomen: soft, other (non tender and no guarding. ) (Female) Exam: Deferred Rectal (Female) Exam: Deferred Back Exam: normal inspection Extremities: normal inspection Skin: warm, dry, intact Neurological: cranial nerves intact, reflexes equal bilateral, normal gait Neuro Extensive - Mental Status: alert, oriented x3 Neuro Extensive - Motor, Sensory, Reflexes: CN II-XII intact, normal gait, normal reflexes Psychiatric: alert, depressed - Patient Data Lab Results last 24 hrs: Laboratory Results - last 24 hr 12/08/16 12/08/16 Range/Units 14:44 14:44 WBC 5.5 (4.5-11.0) K/uL RBC 4.19 (3.30-5.50) M/uL Hgb 12.0 (12.0-15.0) g/dL Hct 36.6 (36.0-48.0) % MCV 87 (80-98) fL MCH 29 (27-31) pg MCHC 33 (32-36) % Plt Count 223 (150-400) K/uL Sodium 142 (140-148) mmol/L Potassium 3.6 (3.6-5.2) mmol/L Chloride 107 (100-108) mmol/L Carbon Dioxide 23 (21-32) mmol/L Anion Gap 11.6 (5.0-14.0) mmol/L BUN 6 L (7-18) mg/dL Creatinine 0.4 L (0.6-1.0) mg/dL Est Cr Clr Drug Dosing 171.62 mL/min Estimated GFR (MDRD) > 60 (>60) Glucose 75 (74-106) mg/dL Calcium 8.2 L (8.5-10.1) mg/dL Phosphorus 3.1 (2.5-4.9) mg/dL Magnesium 1.6 L (1.8-2.4) mg/dL Total Bilirubin 0.3 (0.2-1.0) mg/dL AST 17 (15-37) U/L ALT 28 (12-78) U/L Alkaline Phosphatase 43 L (46-116) U/L Total Protein 6.4 (6.4-8.2) g/dL Albumin 3.1 L (3.4-5.0) g/dL Globulin 3.3 (2.3-3.5) g/dL Albumin/Globulin Ratio 0.9 L (1.2-2.2) Result Diagrams: 12/08/16 14:44 12/08/16 14:44 *Q Meaningful Use (ADM) - VTE *Q VTE Criteria *Q: - Stroke *Q Stroke Criteria *Q: - AMI *Q AMI Criteria *Q: - Problem List (1) Postoperative abdominal pain SNOMED Code(s): 90123787 ICD Code: R10.9 - UNSPECIFIED ABDOMINAL PAIN; G89.18 - OTHER ACUTE POSTPROCEDURAL PAIN Status: Acute Current Visit: No Problem List Initiated/Reviewed/Updated: Yes Orders Last 24hrs: Active Orders 24 hr Category Date Time Status Patient Status [ADT] Routine ADT 12/08/16 13:35 Active Intake and Output [RC] QSHIFT Care 12/08/16 14:02 Active Oxygen Therapy [RC] PRN Care 12/08/16 13:58 Active Up ad Sharon [RC] ASDIRECTED Care 12/08/16 13:58 Active VTE/DVT Education [RC] Per Unit Routine Care 12/08/16 13:58 Active Vital Signs [RC] Q4H Care 12/08/16 13:58 Active Bariatric Diet [DIET] Diet 12/08/16 Dinner Active CBC W/O DIFF,HEMOGRAM [HEME] Timed Lab 12/09/16 04:00 Ordered COMPREHENSIVE METABOLIC PN,CMP [CHEM] Timed Lab 12/09/16 04:00 Ordered MAGNESIUM [CHEM] Timed Lab 12/09/16 04:00 Ordered PHOSPHORUS [CHEM] Timed Lab 12/09/16 04:00 Ordered ALPRAZolam [Xanax] Med 12/08/16 15:17 Active 1 mg PO TID PRN Acetaminophen [Tylenol] Med 12/08/16 13:59 Active 650 mg PO Q4H PRN Acetaminophen [Tylenol] Med 12/08/16 14:00 Active 650 mg RECTAL Q4H PRN Celecoxib [CeleBREX] Med 12/08/16 21:00 Active 100 mg PO BID Cetirizine [ZyrTEC] Med 12/09/16 09:00 Active 10 mg PO DAILY ClonazePAM [KlonoPIN] Med 12/08/16 21:00 Active 1 mg PO BEDTIME Cyanocobalamin (Vitamin B12) [Vitamin B12] Med 12/09/16 09:00 Active 500 mcg SL DAILY DULoxetine [Cymbalta] Med 12/08/16 21:00 Active 60 mg PO BID Dextrose 5%-Lactated Ringers 1,000 ml Med 12/08/16 18:00 Active IV ASDIRECTED Fluticasone Propionate [Flonase] Med 12/08/16 15:17 Active 0 gm NASBOTH DAILY PRN Heparin Sodium [Heparin Lock Flush 100 Units/ML Syringe Med 12/08/16 14:42 Active ] 500 units FLUSH ASDIRECTED PRN Lactobacillus Rhamnosus GG [Culturelle] Med 12/09/16 09:00 Active 1 cap PO DAILY Levalbuterol HCl [Xopenex] Med 12/08/16 15:17 Active 1.25 mg NEB Q6H PRN Levalbuterol Tartrate [Xopenex HFA] Med 12/08/16 15:17 Active 0 gm INH Q4H PRN Metoclopramide [Reglan] Med 12/08/16 14:00 Active 10 mg IVPUSH Q8H Mometasone/Formoterol [Dulera 200-5 MCG] Med 12/08/16 21:00 Active 2 puff IH BIDRT Multivitamins with Iron [Child Chew Iron] Med 12/09/16 09:00 Active 1 tab PO DAILY Ondansetron [Zofran] Med 12/08/16 14:02 Active 4 mg IVPUSH Q4H PRN Pantoprazole [Protonix IV] Med 12/08/16 14:00 Active 40 mg IV Q12H Sucralfate [Carafate] Med 12/08/16 17:00 Active 0.5 gm PO QIDACANDBED Sequential Compression Device [OM.PC] Per Unit Routine Oth 12/08/16 14:01 Ordered Resuscitation Status Routine Resus Stat 12/08/16 13:58 Ordered Medication Orders Acetaminophen (Tylenol) 650 mg PO Q4H PRN PRN Reason: ANALGESIA/FEVER Acetaminophen (Tylenol) 650 mg RECTAL Q4H PRN PRN Reason: ANALGESIA/FEVER Alprazolam (Xanax) 1 mg PO TID PRN PRN Reason: Anxiety Celecoxib (Celebrex) 100 mg PO BID [facility] Last Admin: 12/08/16 21:09 Dose: 100 mg Cetirizine HCl (Zyrtec) 10 mg PO DAILY [facility] Clonazepam (Klonopin) 1 mg PO BEDTIME [facility] Last Admin: 12/08/16 21:14 Dose: 1 mg Cyanocobalamin (Vitamin B12) 500 mcg SL DAILY [facility] Duloxetine HCl (Cymbalta) 60 mg PO BID [facility] Last Admin: 12/08/16 21:08 Dose: 60 mg Fluticasone Propionate (Flonase) 0 gm NASBOTH DAILY PRN PRN Reason: Allergies Heparin Sodium (Porcine) (Heparin Lock Flush 100 Units/Ml Syringe) 500 units FLUSH ASDIRECTED PRN PRN Reason: Keep Vein Open Dextrose/Lactated Ringer's (Dextrose 5%-Lactated Ringers) 1,000 mls @ 150 mls/ hr IV ASDIRECTED [facility] Last Admin: 12/08/16 18:13 Dose: 150 mls/hr Lactobacillus Rhamnosus (Culturelle) 1 cap PO DAILY [facility] Levalbuterol HCl (Xopenex) 1.25 mg NEB Q6H PRN PRN Reason: Wheezing Levalbuterol HCl (Xopenex Hfa) 0 gm INH Q4H PRN PRN Reason: Wheezing Metoclopramide HCl (Reglan) 10 mg IVPUSH Q8H [facility] Last Admin: 12/08/16 21:08 Dose: 10 mg Admin: 12/08/16 14:37 Dose: 10 mg Mometasone Furoate/Formoterol Fumar (Dulera 200-5 Mcg) 2 puff IH BIDRT [facility] Last Admin: 12/08/16 21:08 Dose: 2 puff Multivitamins/Iron (Child Chew Iron) 1 tab PO DAILY [facility] Ondansetron HCl (Zofran) 4 mg IVPUSH Q4H PRN PRN Reason: Nausea Pantoprazole Sodium (Protonix Iv) 40 mg IV Q12H [facility] Last Admin: 12/08/16 14:37 Dose: 40 mg Sucralfate (Carafate) 0.5 gm PO QIDACANDBED [facility] Last Admin: 12/08/16 21:06 Dose: 0.5 gm Admin: 12/08/16 16:58 Dose: 0.5 gm Assessment/Plan Comment:: Assessment: Abdominal Pain Dehydration Nause, vomiting and dry heaving Plan: See copy of orders in EMR Estimated plan of hospital Reinaldo Vo
[2016-12-08] MEDS: Magnesium Sulfate/Water 2 GM in Premix Bag 1 BAG IV SCH (22:38)
[2016-12-09] MEDS: Dextrose 5%-Lactated Ringers 1,000 ML IV SCH ×4 (00:44→21:46)
[2016-12-09] MEDS: Pantoprazole 40 MG Vial IV SCH (02:15)
[2016-12-09] MEDS: Magnesium Sulfate/Water 2 GM in Premix Bag 1 BAG IV SCH ×4 (04:55→21:41)
[2016-12-09] MEDS: Metoclopramide 10 MG/2 ML SDV IVPUSH SCH ×3 (05:54→21:46)
[2016-12-09] MEDS: Formoterol/Mometasone 200-5 MCG 8.8 GM Inhaler IH SCH ×2 (07:08→20:09)
[2016-12-09] MEDS: Sucralfate Suspension 1 GM/10 ML Cup PO SCH ×4 (07:30→20:09)
[2016-12-09] MEDS ORDERED: Magnesium Sulfate/Water 2 GM in Premix Bag 1 BAG IV SCH (08:45)
[2016-12-09] MEDS: Lactobacillus Rhamnosus GG (Probiotic) Cap PO SCH (08:54)
[2016-12-09] MEDS: Multivitamins with Iron Tab.Chew PO SCH (08:54)
[2016-12-09] MEDS: Celecoxib 100 MG Cap PO SCH ×2 (08:54→20:10)
[2016-12-09] MEDS: DULoxetine 30 MG Cap PO SCH ×2 (08:54→20:10)
[2016-12-09] MEDS: Cyanocobalamin (Vitamin B12) 1,000 MCG Tab SL SCH (08:55)
[2016-12-09] MEDS: Cetirizine 10 MG Tab PO SCH (08:55)
[2016-12-09] MEDS ORDERED: Non-Formulary Medication 1 Each (Fluticasone/Vilanterol [Breo Ellipta 200-25 Mcg Inh] 1 EA IH SCH (09:00)
[2016-12-09] MEDS ORDERED: Non-Formulary Medication 1 Each (Multivitamin With Minerals [Multiple Vitamin] 1 TAB) PO SCH (09:00)
[2016-12-09] MEDS ORDERED: Bumetanide 1 MG Tab PO ONE (09:30)
[2016-12-09] MEDS ORDERED: Potassium Chloride 20 MEQ, Lidocaine 1% 2 ML in Sodium Chloride 0.9% 100 ML IV SCH (09:45)
[2016-12-09] MEDS ORDERED: MVI, Adult with Vitamin K 10 ML, Thiamine 100 MG, Magnesium Sulfate 2 GM, Folic Acid 1 ... IV ONE ×5 (10:00)
[2016-12-09] MEDS: Potassium Chloride 20 MEQ, Lidocaine 1% 2 ML in Sodium Chloride 0.9% 100 ML IV SCH ×3 (10:07→14:31)
--- NOTE | 2016-12-09 10:32 | PN ---
DATE OF SERVICE: 12/09/2016 SUBJECTIVE: Shamika was admitted yesterday for dehydration, nausea, dry heaves, and mid abdominal pain between her xiphoid process and umbilicus. She has been tolerating the Celebrex for pain. She is getting 100 mg twice a day, and the Reglan 10 mg IV push scheduled every 8 hours. She has since admission had no dry heaves. Nausea has been better. Oral intake was 440, and output 400. She does state that she normally urinates before surgery 4 times a day, and since she has had surgery, 1 to 2 times daily. She has been afebrile and has been up twice to walk. Refused mag citrate yesterday. REVIEW OF SYSTEMS: HEENT: Negative for any headache, dizziness. NECK: Negative. HEART: No chest pain. LUNGS: No shortness of breath. ABDOMEN: Had 4 bowel movements on 12/07/2016. refusing mag citrate, which was ordered by Jese Grissom MD to take daily. GENITOURINARY: No UTI signs and symptoms. She does feel like she is completely emptying out her bladder. EXTREMITIES: Negative. NEUROLOGIC: Negative. SKIN: Without rash. All 12 systems were reviewed and negative for any pertinent positives and negatives. OBJECTIVE: GENERAL: Shamika Durán is a 41-year-old female. VITAL SIGNS: TPR is 97.3, 79, 16, blood pressure 100/51. HEENT: Negative. NECK: Supple. HEART: Regular rate and rhythm. LUNGS: Clear. ABDOMEN: Completely negative for any tenderness. It is soft. When asking her where it hurts, it is as stated above. Exam is negative. CT scan was reviewed, and this was negative. An EEG report reviewed and was negative. EXTREMITIES: Reveal trace peripheral edema. SKIN: Without rash. LABORATORY DATA: Lab work reveals a potassium of 3.2 and a magnesium is 1.7. ASSESSMENT: 1. Nausea. 2. Dry heaves. 3. Dehydration. 4. Low potassium and low magnesium. 5. SP gastrectomy secondary to severe gastroparesis, unspecified surgical malabsorption, B12 deficiency, anxiety, and depression. PLAN: 1. Magnesium 2 g IV q.6 hours. 2. Continue scheduled Reglan. 3. Potassium 60 mEq IV in 3 divided doses with lidocaine today. 4. We will check CBC, CMP in a.m. 5. Bladder scan after next void. Walk 8 times daily. 6. Bumex 1 mg p.o. today. 7. Senokot-S2 daily in a.m. 8. We will evaluate p.r.n. or in a.m. Shavon Siddiqi PA-C /[id number]
[2016-12-09] MEDS: Pantoprazole 40 MG Tab.CR PO SCH (18:06)
[2016-12-09] MEDS ORDERED: Acetaminophen 160 MG Tab,Disintegrating PO PRN (20:13)
[2016-12-09] MEDS: Acetaminophen 160 MG Tab,Disintegrating PO PRN (21:02)
[2016-12-09] MEDS: ClonazePAM 1 MG Tab PO SCH (21:41)
[2016-12-10] MEDS: Magnesium Sulfate/Water 2 GM in Premix Bag 1 BAG IV SCH ×4 (03:43→21:06)
[2016-12-10] MEDS: Dextrose 5%-Lactated Ringers 1,000 ML IV SCH ×2 (03:48→20:43)
[2016-12-10] MEDS: Metoclopramide 10 MG/2 ML SDV IVPUSH SCH (05:38)
[2016-12-10] MEDS: Sucralfate Suspension 1 GM/10 ML Cup PO SCH ×4 (07:46→20:36)
[2016-12-10] MEDS: Pantoprazole 40 MG Tab.CR PO SCH ×2 (07:46→16:48)
[2016-12-10] MEDS: Formoterol/Mometasone 200-5 MCG 8.8 GM Inhaler IH SCH ×2 (08:03→20:36)
[2016-12-10] MEDS ORDERED: Polyethylene Glycol 3350 Powder 119 GM Bottle PO ONE (09:00)
[2016-12-10] MEDS: Multivitamins with Iron Tab.Chew PO SCH (09:04)
[2016-12-10] MEDS: Celecoxib 100 MG Cap PO SCH ×2 (09:04→20:37)
[2016-12-10] MEDS: DULoxetine 30 MG Cap PO SCH ×2 (09:04→20:38)
[2016-12-10] MEDS: Cetirizine 10 MG Tab PO SCH (09:04)
[2016-12-10] MEDS: Cyanocobalamin (Vitamin B12) 1,000 MCG Tab SL SCH (09:04)
[2016-12-10] MEDS: Lactobacillus Rhamnosus GG (Probiotic) Cap PO SCH (09:04)
[2016-12-10] MEDS: Potassium Chloride 20 MEQ, Lidocaine 1% 2 ML in Sodium Chloride 0.9% 100 ML IV SCH ×3 (10:51→15:01)
[2016-12-10] MEDS: Metoclopramide 10 MG Tab PO SCH ×3 (10:52→20:37)
--- NOTE | 2016-12-10 11:55 | PN ---
DATE OF SERVICE: 12/10/2016 SUBJECTIVE: Vital signs have been stable. Temp max is 98.1. Oral intake 450 in fluids, but she has had 75% of breakfast, 100% of lunch and dinner of a step-2 diet. She reported yesterday of not voiding very much and not emptying out her bladder. She did void in the morning 500 mL. A bladder scan was obtained, immediately after she had a residual of 46. She was given Bumex 1 mg and her total output was 2800. She walked 8 times yesterday and sat up in the chair a little bit. Abdominal pain, 6-7, midepigastric and a little bit below. Denies any pain in her abdomen or anywhere else. She has been taking Celebrex scheduled and has not requested anything more. Home medications are being taken without difficulty, and she reports having four bowel movements on day of admission 12/08/2016 and is feeling constipated today. REVIEW OF SYSTEMS: Remainder of review of systems negative for any pertinent positives or negatives. OBJECTIVE: GENERAL: Shamika Durán is a 41-year-old female. She is alert and orientated. VITAL SIGNS: TPR 98.1, 79, 16, blood pressure 110/57. HEENT: Negative. NECK: Supple. HEART: Regular rate and rhythm. LUNGS: Clear. ABDOMEN: Soft and nontender. She points to about 4 inches below her xiphoid process where it hurts but denies pain with palpation. EXTREMITIES: Without peripheral edema. SCDs are on. ASSESSMENT: 1. Nausea. 2. Dry heaves. 3. Dehydration. 4. Low potassium and low magnesium. 5. SP gastrectomy for severe gastroparesis. 6. Unspecified surgical malabsorption. 7. B12 deficiency. 8. Anxiety and depression. PLAN: 1. Continue step-2 diet but at serial. 2. Drink 3 med cups every 20 minutes or three per hour, record at bedside. Protein drinks q.i.d. and at bedtime. 3. Decrease IV to 100 mL per hour. 4. MiraLAX 119 g in 32 ounces of Gatorade. 5. Zofran ODT 4 mg q.4 hours p.r.n. nausea. 6. Discontinue IV Zofran. 7. We will evaluate p.r.n. or in a.m. Shavon Siddiqi PA-C /[id number]
[2016-12-10] MEDS: ClonazePAM 1 MG Tab PO SCH (20:40)
[2016-12-10] MEDS: Ondansetron 4 MG Tab.DIS PO PRN (20:40)
[2016-12-11] MEDS: Magnesium Sulfate/Water 2 GM in Premix Bag 1 BAG IV SCH ×3 (03:45→16:30)
[2016-12-11] MEDS: Formoterol/Mometasone 200-5 MCG 8.8 GM Inhaler IH SCH ×2 (07:20→20:30)
[2016-12-11] MEDS: Pantoprazole 40 MG Tab.CR PO SCH ×2 (07:22→16:30)
[2016-12-11] MEDS: Metoclopramide 10 MG Tab PO SCH (07:22)
[2016-12-11] MEDS: Sucralfate Suspension 1 GM/10 ML Cup PO SCH ×4 (07:22→20:29)
[2016-12-11] MEDS: Dextrose 5%-Lactated Ringers 1,000 ML IV SCH (07:25)
[2016-12-11] MEDS: Multivitamins with Iron Tab.Chew PO SCH (09:09)
[2016-12-11] MEDS: Celecoxib 100 MG Cap PO SCH ×2 (09:09→20:29)
[2016-12-11] MEDS: DULoxetine 30 MG Cap PO SCH ×2 (09:09→20:29)
[2016-12-11] MEDS: Lactobacillus Rhamnosus GG (Probiotic) Cap PO SCH (09:09)
[2016-12-11] MEDS: Cetirizine 10 MG Tab PO SCH (09:10)
[2016-12-11] MEDS: Cyanocobalamin (Vitamin B12) 1,000 MCG Tab SL SCH (09:10)
--- NOTE | 2016-12-11 10:15 | PN ---
DATE OF SERVICE: 12/11/2016 SUBJECTIVE: Shamika was encouraged greatly by nursing staff yesterday and she did have 1989 in. She does not have any difficulty with dysphagia. She was encouraged to sit up straight with eating and after taking her pills. She has no questions or concerns when talking with Dr. Grissom today. She has not had a bowel movement and she has had one bottle of magnesium citrate, 119 g of MiraLAX. Shamika had some concerns of not urinating enough. She had 1300 out yesterday with 1989 in. REVIEW OF SYSTEMS: Remainder of review of systems negative for any pertinent positives and negatives. OBJECTIVE: GENERAL: Shamika Durán is a 41-year-old female. VITAL SIGNS: TPR is 97.2, 89, 18. HEENT: Negative. NECK: Supple. HEART: Regular rate and rhythm. LUNGS: Clear. ABDOMEN: Soft and nontender. She still subjectively points to that area 4 inches below her xiphoid process, where it hurts, but she denies pain with palpation. EXTREMITIES: Without peripheral edema. ASSESSMENT: 1. Nausea. 2. Dry heaves. 3. Dehydration. 4. Low potassium and low magnesium, resolving. 5. Status post total gastrectomy. 6. Unspecified surgical malabsorption. 7. B12 deficiency. 8. Anxiety and depression. PLAN: 1. Discontinue her saline lock IV. 2. Increase senna S to 2 tablets b.i.d. 3. Reglan changed to p.r.n. 4. Consult to in regard to evaluation of home situation. 5. We will evaluate p.r.n. or in a.m. Shavon Siddiqi PA-C /[id number]
[2016-12-11] MEDS: Acetaminophen 160 MG Tab,Disintegrating PO PRN (12:48)
[2016-12-11] MEDS: Ondansetron 4 MG Tab.DIS PO PRN (15:03)
[2016-12-11] MEDS: Metoclopramide 10 MG Tab PO PRN (16:30)
[2016-12-11] MEDS: ClonazePAM 1 MG Tab PO SCH (20:38)
[2016-12-12] MEDS: Sucralfate Suspension 1 GM/10 ML Cup PO SCH ×4 (07:26→20:22)
[2016-12-12] MEDS: Pantoprazole 40 MG Tab.CR PO SCH ×2 (07:27→17:38)
[2016-12-12] MEDS: Formoterol/Mometasone 200-5 MCG 8.8 GM Inhaler IH SCH ×2 (07:28→20:23)
[2016-12-12] MEDS: Acetaminophen 160 MG Tab,Disintegrating PO PRN (07:30)
[2016-12-12] MEDS: Metoclopramide 10 MG Tab PO PRN ×2 (07:32→12:46)
[2016-12-12] MEDS: Celecoxib 100 MG Cap PO SCH ×2 (08:22→20:23)
[2016-12-12] MEDS: Lactobacillus Rhamnosus GG (Probiotic) Cap PO SCH (08:23)
[2016-12-12] MEDS: Cyanocobalamin (Vitamin B12) 1,000 MCG Tab SL SCH (08:24)
[2016-12-12] MEDS: DULoxetine 30 MG Cap PO SCH ×2 (08:24→20:23)
[2016-12-12] MEDS: Cetirizine 10 MG Tab PO SCH (08:25)
[2016-12-12] MEDS: Multivitamins with Iron Tab.Chew PO SCH (08:25)
--- NOTE | 2016-12-12 09:03 | PN ---
DATE OF SERVICE: 12/12/2016 The patient has been afebrile with stable vital signs. Oral intake was around 1250 and overall she is feeling fairly good. We will have discharge planning discussed, the issues at home and whether there needs to be any alteration in the discharge plan, that will be worked through today, probably ready for discharge home tomorrow. Jese Grissom MD /[id number]
[2016-12-12] MEDS ORDERED: Polyethylene Glycol 3350 Powder 119 GM Bottle PO ONE (10:00)
[2016-12-12] MEDS: Bisacodyl 5 MG Tab PO SCH ×2 (12:42→20:16)
[2016-12-12] MEDS: ClonazePAM 1 MG Tab PO SCH (20:22)
[2016-12-13] MEDS: Formoterol/Mometasone 200-5 MCG 8.8 GM Inhaler IH SCH (07:26)
[2016-12-13 07:45] VITALS: BP 114/67
[2016-12-13] MEDS: Pantoprazole 40 MG Tab.CR PO SCH (07:56)
[2016-12-13] MEDS: Sucralfate Suspension 1 GM/10 ML Cup PO SCH (07:57)
[2016-12-13] MEDS: DULoxetine 30 MG Cap PO SCH (09:58)
[2016-12-13] MEDS: Lactobacillus Rhamnosus GG (Probiotic) Cap PO SCH (09:59)
[2016-12-13] MEDS: Bisacodyl 5 MG Tab PO SCH (09:59)
[2016-12-13] MEDS: Multivitamins with Iron Tab.Chew PO SCH (09:59)
[2016-12-13] MEDS: Cyanocobalamin (Vitamin B12) 1,000 MCG Tab SL SCH (10:00)
[2016-12-13] MEDS: Cetirizine 10 MG Tab PO SCH (10:00)
--- NOTE | 2016-12-14 01:31 | DISCH ---
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 DISCHARGE DIAGNOSES: Resolution of nausea, dry heaves, dehydration, low potassium, low magnesium, resolved. Status post total gastrectomy, unspecified surgical malabsorption, B12 deficiency, anxiety and depression. HISTORY: Shamika Durán is a 41-year-old female. She was admitted to the hospital for midepigastric pain, night dry heaves, and nausea. She had a CT scan and the EGD and dilatation day before admission on 12/07/2016. HOSPITAL COURSE: She was admitted on 12/08/2016. She was given adequate IV fluids and Reglan with Zofran for nausea. With encouragement, her oral intake did increase. She did not have any nausea or vomiting throughout the hospitalization. Her magnesium and potassium were replaced. Her intake and output remained adequate. Vital signs were stable. She was able to be discharged to home on 12/13/2016. REVIEW OF SYSTEMS: HEENT: Negative. Denies any headache, dizziness, or loss of coordination. No fever, chills, night sweats, or fatigue. Eyes are negative. ENT negative for any upper respiratory infection signs and symptoms. CARDIOVASCULAR: No chest pain, murmur, fast or irregular heart beat. LUNGS: No shortness of breath or cough. GI: No nausea, vomiting, diarrhea, constipation, heart burn, red or black stools. Her last bowel movement was 12/14/2016. MUSCULOSKELETAL: No joint pain or swelling. NEUROLOGIC: As above. No headaches, dizziness, loss of coordination. PSYCHIATRIC: Reports increased depression. ENDOCRINE: No excessive fatigue or urination. HEMOLYTIC/LYMPHATIC: No abnormal bleeding, bruising, or lymph node enlargement. Remainder of review of systems negative for any pertinent positives or negatives. PHYSICAL EXAMINATION: GENERAL: Shamika Durán is a 41-year-old female. VITAL SIGNS: Height is 5 feet 5 inches. Weight is 290 pounds. TPR is 97.5, 94, 16. Blood pressure is 114/67. HEENT: Negative. NECK: Supple. HEART: Regular rate and rhythm. LUNGS: Clear. ABDOMEN: Soft, nontender. EXTREMITIES: Without peripheral edema. NEURO: Intact. Mood and affect appropriate. SKIN: Without rash. DISPOSITION: Discharged to home. CONDITION: Stable and improving. FOLLOWUP APPOINTMENT: With Shavon Siddiqi PA-C on 12/20/2016 at 11:00 a.m. HOME MEDICATIONS: Tylenol Kayode Meltaways 640 mg oral q.4 hours p.r.n. pain, Dulcolax 15 mg oral twice daily, Celebrex 100 mg oral twice daily #14, senna Plus 2 tabs oral twice daily #100 and 11 refills, Apresoline oral 3 times a day p.r.n. anxiety. Albuterol/ipratropium 3 mL inhaled every 4 hours p.r.n. wheezing, bariatric melt away vitamin 1 tablet oral daily, Symbicort 160/4.5 mcg inhaler 2 puffs inhaled twice daily, Zyrtec 10 mg oral daily, clonazepam 1 mg oral at bedtime, vitamin B12 500 mcg sublingual daily, Cymbalta 60 mg oral twice daily, Flonase 2 sprays in each nostril twice daily, Breo Ellipta 200/25 mcg one inhaled daily, probiotics one oral daily, Xopenex 1.25 nebulized inhaled every 6 hours, Singulair 10 mg daily, multivitamin one tablet oral twice daily, omeprazole 40 mg oral twice daily, Zofran 4 mg every 4 hours p.r.n. nausea, scopolamine patch replaced every three days, and Spiriva HandiHaler 18 mcg inhaled daily. Discontinue Demerol 50 mg and tramadol 50 mg, both for pain. DIET: Step-2 without cereal gastric bypass diet. Drink 8 to 10 glasses of water a day. ACTIVITY: Walk inside your home 8 times daily. May shower. Notify provider of fever, increased pain, nausea, or vomiting. SPECIAL INSTRUCTION: Drink 4 ounces every hour and keep track of it on the piece of paper you are provided. Eat a 4th of cup or drink a 4th of cup of protein every 2 hours and sit up while drinking.
== END 2016-12-13 11:14 | disposition home or self-care (01) | DRG 251 ==
LOC: JP.2SS 13:25
PROVIDERS: ADMIT Physician Assistant Medical; ATTEND Physician Assistant Medical
DX: R10.13 Epigastric pain (principal); E86.0 Dehydration; K91.2 Postsurgical malabsorption, not elsewhere classified; J44.9 Chronic obstructive pulmonary disease, unspecified; Z87.01 Personal history of pneumonia (recurrent); G47.30 Sleep apnea, unspecified; K21.9 Gastro-esophageal reflux disease without esophagitis; K59.09 Other constipation; F41.9 Anxiety disorder, unspecified; F32.9 Major depressive disorder, single episode, unspecified; M54.9 Dorsalgia, unspecified; G89.29 Other chronic pain; M79.7 Fibromyalgia; E53.8 Deficiency of other specified B group vitamins; F41.0 Panic disorder [episodic paroxysmal anxiety]; E83.42 Hypomagnesemia; E87.6 Hypokalemia; Z98.84 Bariatric surgery status; Z98.0 Intestinal bypass and anastomosis status; Z91.040 Latex allergy status; Z88.5 Allergy status to narcotic agent; Z91.018 Allergy to other foods; Z91.048 Other nonmedicinal substance allergy status; Z90.3 Acquired absence of stomach [part of]; R11.0 Nausea
CPT/HCPCS: 36415; 51798; 80053; 83735; 84100; 85027; 94640-76; A9270-GY; C9113; J1642; J2765; J3411; J3475; J3480; J3490; J7030; J7042; J7120

== ENCOUNTER 2016-12-16 16:37 | Emergency (ER) | payer BC, MEDICAID ==
[2016-12-16] MEDS ORDERED: Ondansetron 4 MG/2 ML SDV IVPUSH ONE (17:12)
[2016-12-16] MEDS ORDERED: Sodium Chloride 0.9% 1,000 ML IV SCH (17:15)
--- NOTE | 2016-12-16 17:21 | EDM.PDOC ---
[id number]: NAUSEA,VOMITING,PALPITATIONS Time Seen by Provider: 12/16/16 17:11 Source: Reports: Patient History Limitations: Reports: No limitations - History of Present Illness INITIAL COMMENTS - FREE TEXT/NARRATIVE: 41-year-old female who is developed nausea and vomiting since last evening. Some epigastric discomfort. She has been having reoccurring stricture problems since her gastric bypass surgery. No fevers or chills. No diarrhea. Timing/Duration: Reports: Hour(s): (Symptoms for 10 hours) Location: other (Upper abdomen) Quality: Reports: cramping Severity: moderate Worsens with: Reports: vomiting Associated Symptoms (-Female): Denies: shoulder pain, constipation, diarrhea, fever/chills - Related Data Allergies/ADRs: Allergies Allergy/AdvReac Type Severity Reaction Status Date / Time banana Allergy Severe Swollen Verified 11/30/16 10:31 Tongue walnut Allergy Intermediate Swollen Verified 11/30/16 10:31 Tongue latex Allergy Cannot Verified 11/30/16 10:31 Remember mold Allergy Wheezing Verified 11/30/16 10:31 morphine Allergy Hives Verified 11/30/16 10:31 pollen extracts Allergy Wheezing Verified 11/30/16 10:31 DUST Allergy Unknown Wheezing Uncoded 11/30/16 10:31 SMOKE AdvReac Intermediate Bronchospas Uncoded 11/30/16 10:31 ms Home Meds: Home Meds DULoxetine [Cymbalta] 60 mg PO BID 06/29/13 [History] Cetirizine [ZyrTEC] 10 mg PO DAILY 01/02/14 [History] Montelukast [Singulair] 10 mg PO DAILY #30 tab 01/10/14 [Rx] Albuterol/Ipratropium [DuoNeb 3.0-0.5 MG/3 ML] 3 ml INH Q4H PRN 12/07/15 [ History] Fluticasone Propionate [Flonase] 2 spray NASBOTH DAILY PRN 12/07/15 [History] ALPRAZolam [Alprazolam] 1 mg PO TID PRN 07/10/16 [History] ClonazePAM [KlonoPIN] 1 mg PO BEDTIME 07/10/16 [History] Ondansetron [Zofran ODT] 4 mg PO Q4H PRN 07/10/16 [History] Bariatric Meltaway Vitamin 1 tab PO DAILY 11/09/16 [History] Budesonide/Formoterol Fumarate [Symbicort 160-4.5 Mcg Inhaler] 2 puff IH BID [History] Cyanocobalamin (Vitamin B-12) [Vitamin B-12] 500 mcg SL DAILY 11/09/16 [History] Fluticasone/Vilanterol [Breo Ellipta 200-25 Mcg INH] 1 each IH DAILY 11/09/16 [ History] Lactobacillus Acidophilus [Probiotic] 1 each PO DAILY 11/09/16 [History] Levalbuterol Tartrate [Xopenex HFA] 2 puff INH Q4H PRN 11/09/16 [History] Omeprazole Magnesium [Prilosec Otc] 40 mg PO BID 11/09/16 [History] Scopolamine [Transderm-Scop] 1.5 mg TOP Q3D PRN 11/14/16 [History] Acetaminophen [Mapap] 650 mg PO Q4H 11/30/16 [History] Levalbuterol HCl [Xopenex] 1.25 mg NEB Q6H PRN 11/30/16 [History] Multivitamin with Minerals [Multiple Vitamin] 1 tab PO DAILY 11/30/16 [History] Acetaminophen [Tylenol Jr. Meltaways] 640 mg PO Q4H PRN #0 tab.dis 12/13/16 [Rx] Bisacodyl [Dulcolax] 15 mg PO BID #100 tablet 12/13/16 [Rx] Celecoxib [CeleBREX] 100 mg PO BID #14 cap 12/13/16 [Rx] Docusate Sodium/Sennosides [Senna Plus] 2 tab PO BID #100 tablet 12/13/16 [Rx] Past Medical History HEENT History: Reports: Sinusitis, Other (see below) Other HEENT History: TMJ. soften Palate Cardiovascular History: Reports: Heart murmur, Other (see below) Other Cardiovascular History: Mitral Valve Regurgitation. Left heart faliure "stiff" Respiratory History: Reports: Asthma, Bronchitis, recurrent, COPD, Intubation, previous, Pneumonia, recurrent, Sleep apnea, SOB, Other (see below) Other Respiratory History: polyp on laynex; intubated x2 after "quit breathing" . c-pap Gastrointestinal History: Reports: Bowel obstruction, Cholelithiasis, Chronic constipation, GERD Genitourinary History: Reports: Urinary incontinence SKIN GRADER History: Reports: Polycystic Ovaries, Musculoskeletal History: Reports: Back pain, chronic, Fracture, Fibromyalgia, Other (see below) Other Musculoskeletal History: knee/ankle pain bilateral Neurological History: Reports: Concussion, Headaches, chronic, Migraines, Seizure, Vertigo Psychiatric History: Reports: Anxiety, Depression, Eating disorders, Mood swings , Panic attack Endocrine/Metabolic History: Reports: Obesity/BMI 30+, Vitamin D deficiency, Other (see below) Other Endocrine/Metabolic History: prediabetic/adrenal gland deficiency Hematologic History: Reports: Anemia, B12 deficiency, Folic acid Immunologic History: Reports: Other (see below) Other Immunologic History: due to steriod use for medical reasons, "they" feel her immune system is compromised Oncologic (Cancer) History: Reports: None Dermatologic History: Reports: Cellulitis, Other (see below) Other Dermatologic History: biopsy of face for moles - Infectious Disease History Infectious Disease History: Reports: Chicken pox, Meningitis, Shingles Other Infectious Disease History: Viral meningitis - Past Surgical History Head Surgeries/Procedures: Reports: None HEENT Surgical History: Reports: LASIK, Oral surgery Cardiovascular Surgical History: Reports: Other (see below) Other Cardiovascular Surgeries/Procedures: angiogram Respiratory Surgical History: Reports: None GI Surgical History: Reports: Cholecystectomy, EGD, Esophageal dilatation, Hernia repair/other, Nigel fundoplication, Other (see below) Other GI Surgeries/Procedures: gastrectomy; gastric tumor removed; enlarged liver-has had biopsy Female Surgical History: Reports: section, Tubal ligation Endocrine Surgical History: Reports: None Neurological Surgical History: Reports: None Musculoskeletal Surgical History: Reports: None Dermatological Surgical History: Reports: Skin biopsy Social & Family History - Family History Family Medical History: Noncontributory Cardiac: Reports: Pacemaker Respiratory: Reports: Asthma, COPD, Other (see below) Other Respiratory Family Hisory: bronchitis GI: Reports: Irritable bowel syndrome OBGYN: Reports: Musculoskeletal: Reports: Arthritis Neurological: Reports: Cerebral aneurysms Psychiatric: Reports: Anxiety, Depression Endocrine/Metabolic: Reports: Diabetes, type II, Hypothyroidism, Obesity/MBI 30+ , Vitamin D deficiency Hematologic: Reports: B12 deficiency Immunologic: Reports: None Oncologic: Reports: Brain, Lung, Skin - Tobacco Use Smoking Status *Q: Never Smoker Second Hand Smoke Exposure: Yes - Caffeine Use Caffeine Use: Reports: None Other Caffeine Use: 2 cups coffee per day and 1-2 sodas - Alcohol Use Days Per Week of Alcohol Use: 0 - Recreational Drug Use Recreational Drug Use: No - Living Situation & Occupation Living situation: Reports: , with family (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 Denies: fever, chills HEENT: Reports: No symptoms Respiratory: Denies: Shortness of Breath, Cough Cardiovascular: Denies: Chest pain GI/Abdominal: Reports: Abdominal pain, Nausea, Vomiting. Denies: Diarrhea : Reports: no symptoms Skin: Reports: no symptoms Neurological: Denies: Headache Psychiatric: Reports: No symptoms ED EXAM, GI/ABD - Physical Exam Exam: See Below Exam Limited By: No limitations General Appearance: alert, no apparent distress (Looks uncomfortable but not distressed) Eyes: bilateral: normal appearance (Good hydration, no jaundice) Respiratory/Chest: no respiratory distress, lungs clear Cardiovascular: regular rate, rhythm GI/Abdominal: normal bowel sounds, soft, tenderness (Some tenderness is present over the epigastric area without significant guarding) Course - Vital Signs Last Recorded V/S: Last Vital Signs Temp 98.0 F 12/16/16 17:05 Pulse 86 12/16/16 18:20 Resp 14 12/16/16 18:20 BP 153/92 H 12/16/16 18:20 Pulse Ox 97 12/16/16 18:20 - Orders/Labs/Meds Labs: Laboratory Tests 12/16/16 12/16/16 12/16/16 Range/Units 17:11 17:11 17:12 WBC 7.9 (4.5-11.0) K/uL RBC 4.00 (3.30-5.50) M/uL Hgb 11.5 L (12.0-15.0) g/dL Hct 34.6 L (36.0-48.0) % MCV 87 (80-98) fL MCH 29 (27-31) pg MCHC 33 (32-36) % Plt Count 219 (150-400) K/uL Neut % (Auto) 75 H (36-66) % Lymph % (Auto) 17 L (24-44) % [place] % (Auto) 6 (2-6) % Eos % (Auto) 2 (2-4) % Baso % (Auto) 0 (0-1) % Sodium 144 (140-148) mmol/L Potassium 3.5 L (3.6-5.2) mmol/L Chloride 109 H (100-108) mmol/L Carbon Dioxide 25 (21-32) mmol/L Anion Gap 13.5 (5.0-14.0) mmol/L BUN 10 D (7-18) mg/dL Creatinine 0.6 (0.6-1.0) mg/dL Est Cr Clr Drug Dosing 112.15 mL/min Estimated GFR (MDRD) > 60 (>60) Glucose 91 (74-106) mg/dL Calcium 8.0 L (8.5-10.1) mg/dL Total Bilirubin 0.5 D (0.2-1.0) mg/dL AST 13 L (15-37) U/L ALT 24 (12-78) U/L Alkaline Phosphatase 68 D (46-116) U/L Total Protein 5.9 L (6.4-8.2) g/dL Albumin 2.8 L (3.4-5.0) g/dL Globulin 3.1 (2.3-3.5) g/dL Albumin/Globulin Ratio 0.9 L (1.2-2.2) Amylase 18 L (25-115) U/L Lipase 65 L (73-393) U/L Meds: Medications Discontinued Medications Generic Name Dose Route Start Last Admin Trade Name Joseq PRN Reason Stop Dose Admin Heparin Sodium (Porcine) 500 units 12/16/16 18:29 12/16/16 18:44 Heparin Lock Flush 100 Units/Ml Syringe FLUSH 12/16/16 18:30 500 units ASDIRECTED ONE Administration Heparin Sodium (Porcine) Confirm 12/16/16 18:27 Heparin Lock Flush 100 Units/Ml Syringe Administered 12/16/16 18:28 Dose 500 units .ROUTE .STK-MED ONE Sodium Chloride 1,000 mls @ 1,000 mls/hr 12/16/16 17:15 12/16/16 17:29 Normal Saline IV 1,000 mls/hr ASDIRECTED ALEX Administration Ondansetron HCl 4 mg 12/16/16 17:12 12/16/16 17:29 Zofran IVPUSH 12/16/16 17:13 4 mg ONETIME ONE Administration - Re-Assessments/Exams Free Text/Narrative Re-Assessment/Exam: 12/16/16 17:23 Patient will be hydrated with a liter of normal saline along with a check of the electrolytes CBC amylase and lipase. Patient responded to treatment and labs were reassuring Departure - Departure Time of Disposition: 18:45 Disposition: Home, Self-Care 01 Condition: good Clinical Impression: Vomiting Instructions: Nausea and Vomiting, Adult, [id number] Referrals: Abran Roca Sr, MD [Primary Care Provider] - Forms: ED Department Discharge Care Plan Goals: Increase diet as tolerated and use Zofran for nausea and vomiting as needed. Recheck in the next 2-3 days if not improving satisfactorily, or return sooner if worsening.
[2016-12-16 19:00] VITALS: BP 153/92
== END 2016-12-16 18:45 | disposition home or self-care (01) ==
LOC: JP.ED 16:37
DX: R11.10 Vomiting, unspecified (principal); J45.909 Unspecified asthma, uncomplicated; J44.9 Chronic obstructive pulmonary disease, unspecified; F32.9 Major depressive disorder, single episode, unspecified; F41.0 Panic disorder [episodic paroxysmal anxiety]; E66.9 Obesity, unspecified; Z90.49 Acquired absence of other specified parts of digestive tract; Z98.51 Tubal ligation status; Z98.890 Other specified postprocedural states; Z79.899 Other long term (current) drug therapy; Z91.018 Allergy to other foods; Z88.5 Allergy status to narcotic agent; Z91.040 Latex allergy status; Z91.048 Other nonmedicinal substance allergy status
CPT/HCPCS: 36415; 80053; 82150; 83690; 85025; 96361; 96374; 99284; J1642; J2405; J7040

== ENCOUNTER 2016-12-19 11:59 | Observation (INO) | payer BC, MEDICAID ==
[2016-12-19] MEDS ORDERED: Dextrose 5%-Lactated Ringers 1,000 ML IV SCH (12:15)
[2016-12-19] MEDS ORDERED: Albuterol/Ipratropium 3.0-0.5 MG/3 ML Neb Soln NEB PRN (12:24)
[2016-12-19] MEDS ORDERED: Scopolamine 1.5 MG Transdermal Patch TOP PRN (12:30)
[2016-12-19] MEDS ORDERED: Non-Formulary Medication 1 Each (Fluticasone/Vilanterol [Breo Ellipta 200-25 Mcg Inh] 1 EA IH SCH (12:30)
[2016-12-19] MEDS ORDERED: Lactated Ringers 1,000 ML IV SCH (12:30)
[2016-12-19] MEDS ORDERED: Levalbuterol Tartrate HFA 15 GM Inhaler INH PRN (12:30)
[2016-12-19] MEDS ORDERED: ALPRAZolam 0.5 MG Tab PO PRN (12:30)
[2016-12-19] MEDS ORDERED: Acetaminophen 325 MG Tab PO SCH (12:30)
[2016-12-19] MEDS ORDERED: Fluticasone Propionate Nasal Spray 16 GM Bottle NASBOTH PRN (12:30)
[2016-12-19] MEDS ORDERED: Levalbuterol HCl 1.25 MG/3 ML Neb NEB PRN (12:30)
[2016-12-19] MEDS ORDERED: Non-Formulary Medication 1 Each (Multivitamin With Minerals [Multiple Vitamin] 1 TAB) PO SCH (12:30)
[2016-12-19] MEDS ORDERED: Ondansetron 4 MG Tab.DIS PO PRN (12:30)
--- NOTE | 2016-12-19 12:41 | PCM.HP ---
H&P History of Present Illness - General Date of Service: 12/19/16 Admit Problem/Dx: Admission Diagnosis/Problem Admission Diagnosis/Problem Stenosis of esophagus Source of Information: Patient History Limitations: Reports: No limitations - History of Present Illness Initial Comments - Free Text/Narative: Shamika comes in stating she is having a hard time eating and swallowing anything for the last 24 hours. She's taken less than 8 ounces of fluid In the last 24 hours. If she tries to swallow food and or liquid it comes up almost immediately. She has stated that she has had 7 dilatations since she had the Vivek-en-Y surgery. She continues to lose a significant amount of weight and she is pleased with the progress. - Related Data Allergies/Adverse Reactions: Allergies Allergy/AdvReac Type Severity Reaction Status Date / Time banana Allergy Severe Swollen Verified 11/30/16 10:31 Tongue walnut Allergy Intermediate Swollen Verified 11/30/16 10:31 Tongue latex Allergy Cannot Verified 11/30/16 10:31 Remember mold Allergy Wheezing Verified 11/30/16 10:31 morphine Allergy Hives Verified 11/30/16 10:31 pollen extracts Allergy Wheezing Verified 11/30/16 10:31 DUST Allergy Unknown Wheezing Uncoded 11/30/16 10:31 SMOKE AdvReac Intermediate Bronchospas Uncoded 11/30/16 10:31 ms Home Medications: Home Meds DULoxetine [Cymbalta] 60 mg PO BID 06/29/13 [History] Cetirizine [ZyrTEC] 10 mg PO DAILY 01/02/14 [History] Montelukast [Singulair] 10 mg PO DAILY #30 tab 01/10/14 [Rx] Albuterol/Ipratropium [DuoNeb 3.0-0.5 MG/3 ML] 3 ml INH Q4H PRN 12/07/15 [ History] Fluticasone Propionate [Flonase] 2 spray NASBOTH DAILY PRN 12/07/15 [History] ALPRAZolam [Alprazolam] 1 mg PO TID PRN 07/10/16 [History] ClonazePAM [KlonoPIN] 1 mg PO BEDTIME 07/10/16 [History] Ondansetron [Zofran ODT] 4 mg PO Q4H PRN 07/10/16 [History] Bariatric Meltaway Vitamin 1 tab PO DAILY 11/09/16 [History] Budesonide/Formoterol Fumarate [Symbicort 160-4.5 Mcg Inhaler] 2 puff IH BID [History] Cyanocobalamin (Vitamin B-12) [Vitamin B-12] 500 mcg SL DAILY 11/09/16 [History] Fluticasone/Vilanterol [Breo Ellipta 200-25 Mcg INH] 1 each IH DAILY 11/09/16 [ History] Lactobacillus Acidophilus [Probiotic] 1 each PO DAILY 11/09/16 [History] Levalbuterol Tartrate [Xopenex HFA] 2 puff INH Q4H PRN 11/09/16 [History] Omeprazole Magnesium [Prilosec Otc] 40 mg PO BID 11/09/16 [History] Scopolamine [Transderm-Scop] 1.5 mg TOP Q3D PRN 11/14/16 [History] Acetaminophen [Mapap] 650 mg PO Q4H 11/30/16 [History] Levalbuterol HCl [Xopenex] 1.25 mg NEB Q6H PRN 11/30/16 [History] Multivitamin with Minerals [Multiple Vitamin] 1 tab PO DAILY 11/30/16 [History] Acetaminophen [Tylenol Jr. Meltaways] 640 mg PO Q4H PRN #0 tab.dis 12/13/16 [Rx] Bisacodyl [Dulcolax] 15 mg PO BID #100 tablet 12/13/16 [Rx] Celecoxib [CeleBREX] 100 mg PO BID #14 cap 12/13/16 [Rx] Docusate Sodium/Sennosides [Senna Plus] 2 tab PO BID #100 tablet 12/13/16 [Rx] Past Medical History HEENT History: Reports: Sinusitis, Other (see below) Other HEENT History: TMJ. soften Palate Cardiovascular History: Reports: Heart murmur, Other (see below) Other Cardiovascular History: Mitral Valve Regurgitation. Left heart faliure "stiff" Respiratory History: Reports: Asthma, Bronchitis, recurrent, COPD, Intubation, previous, Pneumonia, recurrent, Sleep apnea, SOB, Other (see below) Other Respiratory History: polyp on laynex; intubated x2 after "quit breathing" . c-pap Gastrointestinal History: Reports: Bowel obstruction, Cholelithiasis, Chronic constipation, GERD Genitourinary History: Reports: Urinary incontinence [employer] History: Reports: Polycystic Ovaries, Musculoskeletal History: Reports: Back pain, chronic, Fracture, Fibromyalgia, Other (see below) Other Musculoskeletal History: knee/ankle pain bilateral Neurological History: Reports: Concussion, Headaches, chronic, Migraines, Seizure, Vertigo Psychiatric History: Reports: Anxiety, Depression, Eating disorders, Mood swings , Panic attack Endocrine/Metabolic History: Reports: Obesity/BMI 30+, Vitamin D deficiency, Other (see below) Other Endocrine/Metabolic History: prediabetic/adrenal gland deficiency Hematologic History: Reports: Anemia, B12 deficiency, Folic acid Immunologic History: Reports: Other (see below) Other Immunologic History: due to steriod use for medical reasons, "they" feel her immune system is compromised Oncologic (Cancer) History: Reports: None Dermatologic History: Reports: Cellulitis, Other (see below) Other Dermatologic History: biopsy of face for moles - Infectious Disease History Infectious Disease History: Reports: Chicken pox, Meningitis, Shingles Other Infectious Disease History: Viral meningitis - Past Surgical History Head Surgeries/Procedures: Reports: None HEENT Surgical History: Reports: LASIK, Oral surgery Cardiovascular Surgical History: Reports: Other (see below) Other Cardiovascular Surgeries/Procedures: angiogram Respiratory Surgical History: Reports: None GI Surgical History: Reports: Cholecystectomy, EGD, Esophageal dilatation, Hernia repair/other, Nigel fundoplication, Other (see below) Other GI Surgeries/Procedures: gastrectomy; gastric tumor removed; enlarged liver-has had biopsy Female Surgical History: Reports: section, Tubal ligation Endocrine Surgical History: Reports: None Neurological Surgical History: Reports: None Musculoskeletal Surgical History: Reports: None Dermatological Surgical History: Reports: Skin biopsy Social & Family History - Family History Family Medical History: Noncontributory Cardiac: Reports: Pacemaker Respiratory: Reports: Asthma, COPD, Other (see below) Other Respiratory Family Hisory: bronchitis GI: Reports: Irritable bowel syndrome OBGYN: Reports: Musculoskeletal: Reports: Arthritis Neurological: Reports: Cerebral aneurysms Psychiatric: Reports: Anxiety, Depression Endocrine/Metabolic: Reports: Diabetes, type II, Hypothyroidism, Obesity/MBI 30+ , Vitamin D deficiency Hematologic: Reports: B12 deficiency Immunologic: Reports: None Oncologic: Reports: Brain, Lung, Skin - Tobacco Use Smoking Status *Q: Never Smoker Second Hand Smoke Exposure: Yes - Caffeine Use Caffeine Use: Reports: None Other Caffeine Use: 2 cups coffee per day and 1-2 sodas - Alcohol Use Days Per Week of Alcohol Use: 0 - Recreational Drug Use Recreational Drug Use: No - Living Situation & Occupation Living situation: Reports: , with family (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 She's had a sore throat for the last 2 days. Along with a sore throat she's had ear pain. She does have a history of a heart murmur. She has significant shortness of breath and gets relief from taking duo nebs. She's had nausea and vomiting. She's had significant muscle weakness and back pain. She's had anxiety and depression with panic attacks and she does take antidepressant medication. She is had one seizure after an known medicine while she was recently in the hospital. She has had hay fever and frequent headaches. Pulmonary: Reports: Shortness of Breath Cardiovascular: Reports: dyspnea on exertion Gastrointestinal: Reports: Difficulty swallowing Musculoskeletal: Reports: no symptoms Skin: Reports: no symptoms Neurological: Reports: Weakness Exam - Exam Exam: See Below - Vital Signs Weight: 292 lb 1.8 oz - Exam General: alert, oriented, moderate distress HEENT: PERRLA, Hearing intact, Mucosa moist & pink, Nares patent, Normal nasal septum, Posterior pharynx clear, Conjunctiva clear, EOMI, EACs clear, TMs clear Neck: supple, trachea midline, 2 Lungs: Clear to auscultation, Normal respiratory effort Cardiovascular: regular rate, regular rhythm Abdomen: normal bowel sounds, soft Extremities: 3, normal inspection, 10 Peripheral Pulses: 2+: radial (L), radial (R) Skin: warm, dry, intact Neurological: cranial nerves intact, reflexes equal bilateral Neuro Extensive - Mental Status: alert, oriented x3, normal mood/affect, normal cognition, memory intact Neuro Extensive - Motor, Sensory, Reflexes: CN II-XII intact, normal gait, normal reflexes DTR: 1+: bicep (L), bicep (R) Psychiatric: alert, normal affect, normal mood *Q Meaningful Use (ADM) - VTE *Q VTE Criteria *Q: - Stroke *Q Stroke Criteria *Q: - AMI *Q AMI Criteria *Q: Problem List Initiated/Reviewed/Updated: Yes Orders Last 24hrs: Active Orders 24 hr Category Date Time Status Patient Status [ADT] Routine ADT 12/19/16 12:05 Active Patient Status [ADT] Routine ADT 12/19/16 12:24 Ordered Ambulate [RC] QID Care 12/19/16 12:24 Ordered Height and Weight [RC] DAILY Care 12/19/16 12:24 Ordered Intake and Output [RC] QSHIFT Care 12/19/16 12:26 Ordered May Shower [RC] ASDIRECTED Care 12/19/16 12:24 Ordered Notify Provider Consults [RC] ASDIRECTED Care 12/19/16 12:22 Active Oxygen Therapy [RC] PRN Care 12/19/16 12:12 Active Oxygen Therapy [RC] PRN Care 12/19/16 12:24 Ordered RT Aerosol Therapy [RC] ASDIRECTED Care 12/19/16 12:28 Ordered Up With Assistance [RC] ASDIRECTED Care 12/19/16 12:24 Ordered Up ad Sharon [RC] ASDIRECTED Care 12/19/16 12:24 Ordered Up to Chair [RC] QID Care 12/19/16 12:24 Ordered VTE/DVT Education [RC] Per Unit Routine Care 12/19/16 12:12 Active VTE/DVT Education [RC] Per Unit Routine Care 12/19/16 12:24 Ordered Vital Signs [RC] Q4H Care 12/19/16 12:12 Active Vital Signs [RC] Q4H Care 12/19/16 12:24 Ordered Consult to Physician [CONS] Routine Cons 12/19/16 12:16 Ordered Regular Diet [DIET] Diet 12/19/16 Dinner Ordered Chest 2V [CR] Routine Exams 12/19/16 12:24 Ordered CBC WITH AUTO DIFF [HEME] Routine Lab 12/19/16 12:24 Ordered COMPREHENSIVE METABOLIC PN,CMP [CHEM] Routine Lab 12/19/16 12:24 Ordered UA W/MICROSCOPIC [URIN] Routine Lab 12/19/16 12:24 Uncollected ALPRAZolam [Xanax] Med 12/19/16 12:30 Ordered 1 mg PO TID PRN Acetaminophen [Tylenol Jr. Meltaways] Med 12/19/16 12:30 Ordered 640 mg PO Q4H PRN Acetaminophen [Tylenol] Med 12/19/16 12:30 Ordered 650 mg PO Q4H Albuterol/Ipratropium [DuoNeb 3.0-0.5 MG/3 ML] Med 12/19/16 12:30 Ordered 3 ml INH Q4H PRN Albuterol/Ipratropium [DuoNeb 3.0-0.5 MG/3 ML] Med 12/19/16 12:24 Ordered 3 ml NEB QID PRN Bariatric Meltaway Vitamin Med 12/19/16 12:30 Ordered 1 tab PO DAILY Bisacodyl [Dulcolax] Med 12/19/16 12:30 Ordered 15 mg PO BID Budesonide/Formoterol Fumarate [Symbicort 160-4.5 Mcg Med 12/19/16 12:30 Ordered Inhaler] 2 puff IH BID Cetirizine [ZyrTEC] Med 12/19/16 12:30 Ordered 10 mg PO DAILY ClonazePAM [KlonoPIN] Med 12/19/16 21:00 Ordered 1 mg PO BEDTIME Cyanocobalamin (Vitamin B-12) [Vitamin B-12] Med 12/19/16 12:30 Ordered 500 mcg SL DAILY DULoxetine [Cymbalta] Med 12/19/16 12:30 Ordered 60 mg PO BID Dextrose 5%-Lactated Ringers 1,000 ml Med 12/19/16 12:15 Active IV ASDIRECTED Docusate Sodium/Sennosides [Senna Plus] Med 12/19/16 12:30 Ordered 2 tab PO BID Fluticasone Propionate [Flonase] Med 12/19/16 12:30 Ordered 2 spray NASBOTH DAILY PRN Fluticasone/Vilanterol [Breo Ellipta 200-25 Mcg INH] Med 12/19/16 12:30 Ordered 1 each IH DAILY Lactated Ringers @ 125 MLS/HR(1000ml) Med 12/19/16 12:30 Ordered Lactated Ringers [Ringers, Lactated] 1,000 ml IV ASDIRECTED Lactobacillus Acidophilus [Probiotic] Med 12/19/16 12:30 Ordered 1 each PO DAILY Levalbuterol HCl [Xopenex] Med 12/19/16 12:30 Ordered 1.25 mg NEB Q6H PRN Levalbuterol Tartrate [Xopenex HFA] Med 12/19/16 12:30 Ordered 2 puff INH Q4H PRN Montelukast [Singulair] Med 12/19/16 12:30 Ordered 10 mg PO DAILY Multivitamin with Minerals [Multiple Vitamin] Med 12/19/16 12:30 Ordered 1 tab PO DAILY Omeprazole Magnesium [Prilosec Otc] Med 12/19/16 12:30 Ordered 40 mg PO BID Ondansetron [Zofran ODT] Med 12/19/16 12:30 Ordered 4 mg PO Q4H PRN Scopolamine [Transderm-Scop] Med 12/19/16 12:30 Ordered 1.5 mg TOP Q3D PRN Sequential Compression Device [OM.PC] Per Unit Routine Oth 12/19/16 12:26 Ordered Resuscitation Status Routine Resus Stat 12/19/16 12:12 Ordered Medication Orders Dextrose/Lactated Ringer's (Dextrose 5%-Lactated Ringers) 1,000 mls @ 150 mls/ hr IV ASDIRECTED ALEX Assessment/Plan Comment:: Assessment/plan: #1. Dysphagia with esophageal stenosis. I feel that she needs another dilatation and shortness of breath with Dr. Grissom who will perform this tomorrow. #2. Dehydration. She is unable to swallow and a significant amount liquid or solid food. I would will rehydrate with IV fluids. She does have a central line in place. #3. Obesity with status post Vivek-en-Y surgery. #4. Asthma. We'll continue with the dual nebs which does work well.
[2016-12-19] MEDS ORDERED: Metoclopramide 10 MG Tab PO PRN (13:14)
--- NOTE | 2016-12-19 13:26 | PCM.CONS ---
H&P History of Present Illness - General Date of Service: 12/19/16 Admit Problem/Dx: Admission Diagnosis/Problem Admission Diagnosis/Problem Stenosis of esophagus Source of Information: Patient History Limitations: Reports: No limitations - History of Present Illness Initial Comments - Free Text/Narative: Shamika states she wasn't able to get in enough fluids on 12/15/16 and went to ED and recieved fluids and treatment for nausea. She felt better until 12/17/16. She reports unable to keep liquids down. Onset of Symptoms: Reports: gradual Symptom Onset Date: 12/15/16 Duration of Symptoms: Reports: Day(s):, Intermittent (nausea ) Location: Reports: abdomen Quality: Reports: Same as previous episode Severity: mild Improves with: Reports: None Worsens with: Reports: None Context: Reports: sick contact Associated Symptoms: Reports: nausea/vomiting Abdominal Pain Score (Numeric/FACES): 4 - Related Data Allergies/Adverse Reactions: Allergies Allergy/AdvReac Type Severity Reaction Status Date / Time banana Allergy Severe Swollen Verified 11/30/16 10:31 Tongue walnut Allergy Intermediate Swollen Verified 11/30/16 10:31 Tongue latex Allergy Cannot Verified 11/30/16 10:31 Remember mold Allergy Wheezing Verified 11/30/16 10:31 morphine Allergy Hives Verified 11/30/16 10:31 pollen extracts Allergy Wheezing Verified 11/30/16 10:31 DUST Allergy Unknown Wheezing Uncoded 11/30/16 10:31 SMOKE AdvReac Intermediate Bronchospas Uncoded 11/30/16 10:31 ms Home Medications: Home Meds DULoxetine [Cymbalta] 60 mg PO BID 06/29/13 [History] Cetirizine [ZyrTEC] 10 mg PO DAILY 01/02/14 [History] Montelukast [Singulair] 10 mg PO DAILY #30 tab 01/10/14 [Rx] Albuterol/Ipratropium [DuoNeb 3.0-0.5 MG/3 ML] 3 ml INH Q4H PRN 12/07/15 [ History] Fluticasone Propionate [Flonase] 2 spray NASBOTH DAILY PRN 12/07/15 [History] ALPRAZolam [Alprazolam] 1 mg PO TID PRN 07/10/16 [History] ClonazePAM [KlonoPIN] 1 mg PO BEDTIME 07/10/16 [History] Ondansetron [Zofran ODT] 4 mg PO Q4H PRN 07/10/16 [History] Bariatric [place] Vitamin 1 tab PO DAILY 11/09/16 [History] Budesonide/Formoterol Fumarate [Symbicort 160-4.5 Mcg Inhaler] 2 puff IH BID [History] Cyanocobalamin (Vitamin B-12) [Vitamin B-12] 500 mcg SL DAILY 11/09/16 [History] Fluticasone/Vilanterol [Breo Ellipta 200-25 Mcg INH] 1 each IH DAILY 11/09/16 [ History] Lactobacillus Acidophilus [Probiotic] 1 each PO DAILY 11/09/16 [History] Levalbuterol Tartrate [Xopenex HFA] 2 puff INH Q4H PRN 11/09/16 [History] Omeprazole Magnesium [Prilosec Otc] 40 mg PO BID 11/09/16 [History] Scopolamine [Transderm-Scop] 1.5 mg TOP Q3D PRN 11/14/16 [History] Levalbuterol HCl [Xopenex] 1.25 mg NEB Q6H PRN 11/30/16 [History] Acetaminophen [Tylenol Jr. [place]elta[place]] 640 mg PO Q4H PRN #0 tab.dis 12/13/16 [Rx] Bisacodyl [Dulcolax] 15 mg PO BID #100 tablet 12/13/16 [Rx] Celecoxib [CeleBREX] 100 mg PO BID #14 cap 12/13/16 [Rx] Docusate Sodium/Sennosides [Senna Plus] 2 tab PO BID #100 tablet 12/13/16 [Rx] Sucralfate [Carafate] 1 gm PO TIDAC 12/19/16 [History] Past Medical History HEENT History: Reports: Sinusitis, Other (see below) Other HEENT History: TMJ. soften Palate Cardiovascular History: Reports: Heart murmur, Other (see below) Other Cardiovascular History: Mitral Valve Regurgitation. Left heart faliure "stiff" Respiratory History: Reports: Asthma, Bronchitis, recurrent, COPD, Intubation, previous, Pneumonia, recurrent, Sleep apnea, SOB, Other (see below) Other Respiratory History: polyp on laynex; intubated x2 after "quit breathing" . c-pap Gastrointestinal History: Reports: Bowel obstruction, Cholelithiasis, Chronic constipation, GERD Genitourinary History: Reports: Urinary incontinence [employer] History: Reports: Polycystic Ovaries, Musculoskeletal History: Reports: Back pain, chronic, Fracture, Fibromyalgia, Other (see below) Other Musculoskeletal History: knee/ankle pain bilateral Neurological History: Reports: Concussion, Headaches, chronic, Migraines, Seizure, Vertigo Psychiatric History: Reports: Anxiety, Depression, Eating disorders, Mood swings , Panic attack Endocrine/Metabolic History: Reports: Obesity/BMI 30+, Vitamin D deficiency, Other (see below) Other Endocrine/Metabolic History: prediabetic/adrenal gland deficiency Hematologic History: Reports: Anemia, B12 deficiency, Folic acid Immunologic History: Reports: Other (see below) Other Immunologic History: due to steriod use for medical reasons, "they" feel her immune system is compromised Oncologic (Cancer) History: Reports: None Dermatologic History: Reports: Cellulitis, Other (see below) Other Dermatologic History: biopsy of face for moles - Infectious Disease History Infectious Disease History: Reports: Chicken pox, Meningitis, Shingles Other Infectious Disease History: Viral meningitis - Past Surgical History Head Surgeries/Procedures: Reports: None HEENT Surgical History: Reports: LASIK, Oral surgery Cardiovascular Surgical History: Reports: Other (see below) Other Cardiovascular Surgeries/Procedures: angiogram Respiratory Surgical History: Reports: None GI Surgical History: Reports: Cholecystectomy, EGD, Esophageal dilatation, Hernia repair/other, Nigel fundoplication, Other (see below) Other GI Surgeries/Procedures: gastrectomy; gastric tumor removed; enlarged liver-has had biopsy Female Surgical History: Reports: section, Tubal ligation Endocrine Surgical History: Reports: None Neurological Surgical History: Reports: None Musculoskeletal Surgical History: Reports: None Dermatological Surgical History: Reports: Skin biopsy Social & Family History - Family History Family Medical History: Noncontributory Cardiac: Reports: Pacemaker Respiratory: Reports: Asthma, COPD, Other (see below) Other Respiratory Family Hisory: bronchitis GI: Reports: Irritable bowel syndrome OBGYN: Reports: Musculoskeletal: Reports: Arthritis Neurological: Reports: Cerebral aneurysms Psychiatric: Reports: Anxiety, Depression Endocrine/Metabolic: Reports: Diabetes, type II, Hypothyroidism, Obesity/MBI 30+ , Vitamin D deficiency Hematologic: Reports: B12 deficiency Immunologic: Reports: None Oncologic: Reports: Brain, Lung, Skin - Tobacco Use Smoking Status *Q: Never Smoker Second Hand Smoke Exposure: Yes - Caffeine Use Caffeine Use: Reports: None Other Caffeine Use: 2 cups coffee per day and 1-2 sodas - Alcohol Use Days Per Week of Alcohol Use: 0 - Recreational Drug Use Recreational Drug Use: No - Living Situation & Occupation Living situation: Reports: , with family (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 , lives in [place] with and 3 children) Occupation: employed H&P Review of Systems - Review of Systems: Review Of Systems: See Below General: Reports: weakness, fatigue HEENT: Reports: rhinitis, post nasal drip, sinus congestion Pulmonary: Reports: Shortness of Breath, Wheezing Cardiovascular: Reports: no symptoms Gastrointestinal: Reports: Nausea, Vomiting Musculoskeletal: Reports: no symptoms Skin: Reports: no symptoms Psychiatric: Reports: depression Neurological: Reports: No Symptoms Hematologic/Lymphatic: Reports: no symptoms Immunologic: Reports: no symptoms Exam - Exam Exam: See Below - Vital Signs Weight: 292 lb 1.8 oz - Exam Quality Assessment: DVT prophylaxis General: mild distress HEENT: PERRLA Neck: supple, trachea midline Lungs: Decreased breath sounds Cardiovascular: regular rate, regular rhythm Abdomen: normal bowel sounds, soft (Female) Exam: Deferred Rectal (Female) Exam: Deferred Back Exam: normal inspection Extremities: normal inspection Skin: warm, dry, intact Neurological: cranial nerves intact Neuro Extensive - Mental Status: alert, oriented x3, normal mood/affect Neuro Extensive - Motor, Sensory, Reflexes: CN II-XII intact, normal gait Psychiatric: alert - Patient Data Lab Results last 24 hrs: Laboratory Results - last 24 hr 12/19/16 12/19/16 Range/Units 12:46 12:46 WBC 5.9 (4.5-11.0) K/uL RBC 4.06 (3.30-5.50) M/uL Hgb 11.4 L (12.0-15.0) g/dL Hct 34.9 L (36.0-48.0) % MCV 86 (80-98) fL MCH 28 (27-31) pg MCHC 33 (32-36) % Plt Count 221 (150-400) K/uL Neut % (Auto) 66 (36-66) % Lymph % (Auto) 23 L (24-44) % [place] % (Auto) 8 H (2-6) % Eos % (Auto) 3 (2-4) % Baso % (Auto) 1 (0-1) % Sodium 146 (140-148) mmol/L Potassium 3.2 L (3.6-5.2) mmol/L Chloride 106 (100-108) mmol/L Carbon Dioxide 24 (21-32) mmol/L Anion Gap 19.2 H (5.0-14.0) mmol/L BUN 10 (7-18) mg/dL Creatinine 0.5 L (0.6-1.0) mg/dL Est Cr Clr Drug Dosing 134.58 mL/min Estimated GFR (MDRD) > 60 (>60) Glucose 86 (74-106) mg/dL Calcium 7.8 L (8.5-10.1) mg/dL Total Bilirubin 0.4 (0.2-1.0) mg/dL AST 14 L (15-37) U/L ALT 24 (12-78) U/L Alkaline Phosphatase 72 (46-116) U/L Total Protein 6.1 L (6.4-8.2) g/dL Albumin 2.9 L (3.4-5.0) g/dL Globulin 3.2 (2.3-3.5) g/dL Albumin/Globulin Ratio 0.9 L (1.2-2.2) Result Diagrams: 12/19/16 12:46 12/19/16 12:46 Consult PN Assessment/Plan POD#: 0 Procedures: Procedures AIRWAY INHALATION TREATMENT (11/24/16) ASSAY OF ACTH (05/25/16) ASSAY OF AMYLASE (12/16/16) ASSAY OF LACTIC ACID (07/10/16) ASSAY OF LIPASE (12/16/16) ASSAY OF MAGNESIUM (12/02/16) ASSAY OF NATRIURETIC PEPTIDE (11/24/15) ASSAY OF PHOSPHORUS (11/24/16) ASSAY OF SOMATOMEDIN (05/25/16) ASSAY OF TROPONIN QUANT (05/02/16) ASSAY THYROID STIM HORMONE (08/04/16) BEHAVRAL QUALIT ANALYS VOICE (05/24/16) BLOOD CULTURE FOR BACTERIA (10/19/16) BLOOD GASES ANY COMBINATION (07/10/16) CHEST X-RAY 1 VIEW FRONTAL (07/10/16) CHEST X-RAY 2VW FRONTAL&LATL (10/19/16) CHORIONIC GONADOTROPIN ASSAY (06/29/13) COMPLETE CBC AUTOMATED (12/02/16) COMPLETE CBC W/AUTO DIFF WBC (12/16/16) COMPREHEN METABOLIC PANEL (12/16/16) CONTRST X-RAY UPPR GI TRACT (10/23/16) CT ABD & PELV W/CONTRAST (12/07/16) CT ABDOMEN W/O DYE (11/24/16) CULTURE SCREEN ONLY (10/14/16) EGD BALLOON DIL ESOPH30 MM/> (12/07/16) EGD DILATE STRICTURE (12/02/16) ELECTROCARDIOGRAM TRACING (05/02/16) EMERGENCY DEPT VISIT (12/16/16) EMERGENCY DEPT VISIT (10/14/16) EMERGENCY DEPT VISIT (06/29/13) ESOPH EGD DILATION <30 MM (11/24/16) FIBRIN DEGRADATION QUANT (12/04/13) HOT OR COLD PACKS THERAPY (06/07/16) HYDRATE IV INFUSION ADD-ON (12/16/16) INFLUENZA A/B AG IA (06/29/13) INFLUENZA ASSAY W/OPTIC (10/14/16) INSERT TUNNELED CV CATH (11/18/16) MANUAL THERAPY 1/> REGIONS (10/30/13) MEASURE BLOOD OXYGEN LEVEL (11/24/16) METABOLIC PANEL TOTAL CA (11/24/16) PT EVALUATION (06/07/16) RBC SED RATE NONAUTOMATED (07/10/16) ROUTINE VENIPUNCTURE (12/16/16) SPEECH/HEARING THERAPY (06/07/16) STREP A AG IA (10/14/16) THER/PROPH/DIAG INJ IV PUSH (12/16/16) THER/PROPH/DIAG INJ SC/IM (11/24/16) THER/PROPH/DIAG IV INF ADDON (11/24/16) THER/PROPH/DIAG IV INF INIT (11/24/16) THERAPEUTIC EXERCISES (06/07/16) TOTAL CORTISOL (05/25/16) TTE W/DOPPLER COMPLETE (01/05/14) TX/PRO/DX INJ NEW DRUG ADDON (11/24/16) TX/PRO/DX INJ SAME 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 TAPE 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 (11/24/16) TX/PROPH/DG ADDL SEQ IV INF (11/24/16) URINALYSIS AUTO W/SCOPE (10/14/16) WITHDRAWAL OF ARTERIAL BLOOD (07/10/16) X-RAY EXAM OF ABDOMEN (10/19/16) X-RAY EXAM SERIES ABDOMEN (08/04/16) Problem List Initiated/Reviewed/Updated: Yes My Orders last 24 hours: My Active Orders 12/19/16 13:14 Metoclopramide [Reglan] 10 mg PO Q8H PRN Ondansetron [Zofran] 4 mg IVPUSH Q4H PRN 12/19/16 13:15 MVI, Adult with Vitamin K [Infuvite Adult] 10 ml Thiamine [Vitamin B-1] 100 mg Magnesium Sulfate [Magnesium Sulfate 50%] 2 gm Folic Acid 1 mg Lactated Ringers [Ringers, Lactated] 1,000 ml IV ONETIME 12/19/16 13:18 Verify Patient Consent Obtain [RC] ASDIRECTED 12/19/16 16:00 Sucralfate [Carafate] 1 gm PO QID 12/19/16 21:00 Celecoxib [CeleBREX] 100 mg PO BID Plan: Scheduled EGD with Dilation -IV Sedation - 12/20/16 - Jese Grissom MD - NPO after MN Rx Robinul 0.4 mg IV nutrition worker to OR Assessment: Dyphagia Nausea Dehydration Plan Admit for observation Plan to discharge after EGD with Dil Shavon Vo
[2016-12-19] MEDS ORDERED: MVI, Adult with Vitamin K 10 ML, Thiamine 100 MG, Magnesium Sulfate 2 GM, Folic Acid 1 ... IV ONE ×5 (14:00)
[2016-12-19] MEDS: Ondansetron 4 MG/2 ML SDV IVPUSH PRN ×2 (14:06→20:11)
[2016-12-19] MEDS: DULoxetine 30 MG Cap PO SCH ×3 (14:38→21:00)
[2016-12-19] MEDS: Bisacodyl 5 MG Tab PO SCH ×3 (14:40→21:00)
[2016-12-19] MEDS: Cetirizine 10 MG Tab PO SCH (14:41)
[2016-12-19] MEDS: Cyanocobalamin (Vitamin B12) 1,000 MCG Tab SL SCH (14:42)
[2016-12-19] MEDS: Multivitamins with Iron Tab.Chew PO SCH (14:42)
--- NOTE | 2016-12-19 14:44 | CR ---
Chest 2V HISTORY: Shortness of breath. COMPARISON: 10/25/2016. FINDINGS: Left-sided central line catheter. Distal tip overlies the superior vena cava right atrial junction. Limited inspiration. No focal infiltrates or pneumothorax.
[2016-12-19] MEDS ORDERED: Metoclopramide 10 MG/2 ML SDV IVPUSH PRN (15:27)
[2016-12-19] MEDS: Sucralfate Suspension 1 GM/10 ML Cup PO SCH ×2 (16:05→20:26)
[2016-12-19] MEDS: Pantoprazole 40 MG Tab.CR PO SCH (16:05)
[2016-12-19] MEDS: Albuterol/Ipratropium 3.0-0.5 MG/3 ML Neb Soln INH PRN (16:06)
[2016-12-19] MEDS: Acetaminophen 160 MG Tab,Disintegrating PO PRN (16:10)
[2016-12-19] MEDS: Sodium Chloride 0.9% with KCl 1,000 ML IV SCH (20:11)
[2016-12-19] MEDS: Celecoxib 100 MG Cap PO SCH (20:26)
[2016-12-19] MEDS: Formoterol/Mometasone 200-5 MCG 8.8 GM Inhaler IH SCH (20:27)
[2016-12-19] MEDS: Montelukast 10 MG Tab PO SCH ×2 (20:28→21:00)
[2016-12-19] MEDS ORDERED: ClonazePAM 1 MG Tab PO SCH (21:00)
[2016-12-19] MEDS ORDERED: Potassium Chloride 20 MEQ in Premix Bag 1 BAG IV ONE ×2 (21:00→23:00)
[2016-12-19] MEDS ORDERED: POTASSIUM CHLORIDE IV ONE (21:00)
[2016-12-20] MEDS ORDERED: Benzocaine/Cetylpyridinium/Menthol Lozenge MUCMEM PRN (01:47)
[2016-12-20] MEDS: Ondansetron 4 MG/2 ML SDV IVPUSH PRN ×3 (01:54→19:44)
[2016-12-20] MEDS: Acetaminophen 160 MG Tab,Disintegrating PO PRN ×2 (01:54→10:00)
[2016-12-20] MEDS: Sodium Chloride 0.9% with KCl 1,000 ML IV SCH (04:27)
[2016-12-20] MEDS ORDERED: Glycopyrrolate 0.2 MG/ML 2 ML SYRINGE IVPUSH ONE (06:50)
[2016-12-20] MEDS: Formoterol/Mometasone 200-5 MCG 8.8 GM Inhaler IH SCH (07:32)
[2016-12-20] MEDS: Albuterol/Ipratropium 3.0-0.5 MG/3 ML Neb Soln INH PRN (07:35)
[2016-12-20] MEDS ORDERED: Propofol 200 MG/20 ML SDV ONE (07:54)
[2016-12-20] MEDS ORDERED: fentaNYL 100 MCG/2 ML SDV ONE (07:54)
[2016-12-20] MEDS ORDERED: Midazolam 1 MG/ML 2 ML SDV ONE (07:54)
--- NOTE | 2016-12-20 07:59 | PCM.CONSN ---
- General Info Date of Service: 12/20/16 - Review of Systems General: Reports: No Symptoms HEENT: Reports: no symptoms Pulmonary: Reports: no symptoms Cardiovascular: Reports: No Symptoms Gastrointestinal: Reports: Nausea Genitourinary: Reports: no symptoms Musculoskeletal: Reports: no symptoms Skin: Reports: no symptoms Neurological: Reports: No Symptoms Psychiatric: Reports: depression, anxiety - Patient Data Vitals - most recent: Last Vital Signs Temp 97 F 12/20/16 07:46 Pulse 95 12/20/16 07:46 Resp 20 12/20/16 07:46 BP 112/56 L 12/20/16 07:46 Pulse Ox 96 12/20/16 07:46 Weight - most recent: 292 lb 1.8 oz I&O - last 24 hours: Intake & Output 12/19/16 12/20/16 12/20/16 22:59 06:59 14:59 Intake Total 1850 1579 Output Total 400 Balance 1850 1179 Lab Results last 24 hrs: Laboratory Results - last 24 hr 12/19/16 12/19/16 12/19/16 Range/Units 12:46 12:46 19:23 WBC 5.9 (4.5-11.0) K/uL RBC 4.06 (3.30-5.50) M/uL Hgb 11.4 L (12.0-15.0) g/dL Hct 34.9 L (36.0-48.0) % MCV 86 (80-98) fL MCH 28 (27-31) pg MCHC 33 (32-36) % Plt Count 221 (150-400) K/uL Neut % (Auto) 66 (36-66) % Lymph % (Auto) 23 L (24-44) % [place] % (Auto) 8 H (2-6) % Eos % (Auto) 3 (2-4) % Baso % (Auto) 1 (0-1) % Sodium 146 (140-148) mmol/L Potassium 3.2 L (3.6-5.2) mmol/L Chloride 106 (100-108) mmol/L Carbon Dioxide 24 (21-32) mmol/L Anion Gap 19.2 H (5.0-14.0) mmol/L BUN 10 (7-18) mg/dL Creatinine 0.5 L (0.6-1.0) mg/dL Est Cr Clr Drug Dosing 134.58 mL/min Estimated GFR (MDRD) > 60 (>60) Glucose 86 (74-106) mg/dL Calcium 7.8 L (8.5-10.1) mg/dL Phosphorus (2.5-4.9) mg/dL Magnesium (1.8-2.4) mg/dL Total Bilirubin 0.4 (0.2-1.0) mg/dL AST 14 L (15-37) U/L ALT 24 (12-78) U/L Alkaline Phosphatase 72 (46-116) U/L Total Protein 6.1 L (6.4-8.2) g/dL Albumin 2.9 L (3.4-5.0) g/dL Globulin 3.2 (2.3-3.5) g/dL Albumin/Globulin Ratio 0.9 L (1.2-2.2) Urine Color Yellow Urine Appearance Slightly cloudy Urine pH 6.0 (4.5-8.0) Ur Specific [place] 1.025 (1.008-1.030) Urine Protein Negative (NEGATIVE) mg/dL Urine Glucose (UA) Normal (NEGATIVE) mg/dL Urine Ketones 50 H (NEGATIVE) mg/dL Urine Occult Blood Negative (NEGATIVE) Urine Nitrite Negative (NEGATIVE) Urine Bilirubin Negative (NEGATIVE) Urine Urobilinogen 4 (NORMAL) mg/dL Ur Leukocyte Esterase Negative (NEGATIVE) Urine RBC 0-5 (0-5) Urine WBC 0-5 (0-5) Ur Epithelial Cells Moderate Amorphous Sediment Not seen Urine Bacteria Many Urine Mucus Many 12/20/16 12/20/16 Range/Units 01:34 07:23 WBC (4.5-11.0) K/uL RBC (3.30-5.50) M/uL Hgb (12.0-15.0) g/dL Hct (36.0-48.0) % MCV (80-98) fL MCH (27-31) pg MCHC (32-36) % Plt Count (150-400) K/uL Neut % (Auto) (36-66) % Lymph % (Auto) (24-44) % [place] % (Auto) (2-6) % Eos % (Auto) (2-4) % Baso % (Auto) (0-1) % Sodium 146 (140-148) mmol/L Potassium 4.0 (3.6-5.2) mmol/L Chloride 110 H (100-108) mmol/L Carbon Dioxide 24 (21-32) mmol/L Anion Gap 16.0 H (5.0-14.0) mmol/L BUN 5 L (7-18) mg/dL Creatinine 0.4 L (0.6-1.0) mg/dL Est Cr Clr Drug Dosing 168.23 mL/min Estimated GFR (MDRD) > 60 (>60) Glucose 82 (74-106) mg/dL Calcium 7.5 L (8.5-10.1) mg/dL Phosphorus 2.9 (2.5-4.9) mg/dL Magnesium 1.7 L (1.8-2.4) mg/dL Total Bilirubin (0.2-1.0) mg/dL AST (15-37) U/L ALT (12-78) U/L Alkaline Phosphatase (46-116) U/L Total Protein (6.4-8.2) g/dL Albumin (3.4-5.0) g/dL Globulin (2.3-3.5) g/dL Albumin/Globulin Ratio (1.2-2.2) Urine Color Yellow Urine Appearance Slightly cloudy Urine pH 6.0 (4.5-8.0) Ur Specific [place] 1.020 (1.008-1.030) Urine Protein Negative (NEGATIVE) mg/dL Urine Glucose (UA) Normal (NEGATIVE) mg/dL Urine Ketones 50 H (NEGATIVE) mg/dL Urine Occult Blood Negative (NEGATIVE) Urine Nitrite Negative (NEGATIVE) Urine Bilirubin Negative (NEGATIVE) Urine Urobilinogen 1 (NORMAL) mg/dL Ur Leukocyte Esterase Negative (NEGATIVE) Urine RBC 0-5 (0-5) Urine WBC 0-5 (0-5) Ur Epithelial Cells Moderate Amorphous Sediment Not seen Urine Bacteria Moderate Urine Mucus Moderate Med Orders - Current: Current Medications Acetaminophen (Tylenol Jr. [place]) 640 mg PO Q4H PRN PRN Reason: Pain Last Admin: 12/20/16 01:54 Dose: 640 mg Albuterol/Ipratropium (Duoneb 3.0-0.5 Mg/3 Ml) 3 ml NEB QID PRN PRN Reason: Shortness Of Breath/wheezing Albuterol/Ipratropium (Duoneb 3.0-0.5 Mg/3 Ml) 3 ml INH Q4H PRN PRN Reason: Wheezing Last Admin: 12/20/16 07:35 Dose: 3 ml Alprazolam (Xanax) 1 mg PO TID PRN PRN Reason: Anxiety Benzocaine/Menthol (Cepacol Sore Throat) 1 lozenge MUCMEM 6XDAY PRN PRN Reason: Sore Throat Last Admin: 12/20/16 01:58 Dose: 1 antonia Bisacodyl (Dulcolax) 15 mg PO BID [facility] Last Admin: 12/19/16 21:00 Dose: Not Given Celecoxib (Celebrex) 100 mg PO BID [facility] Last Admin: 12/19/16 20:26 Dose: 100 mg Cetirizine HCl (Zyrtec) 10 mg PO DAILY [facility] Last Admin: 12/19/16 14:41 Dose: Not Given Clonazepam (Klonopin) 1 mg PO BEDTIME [facility] Last Admin: 12/19/16 20:33 Dose: 1 mg Cyanocobalamin (Vitamin B12) 500 mcg SL DAILY [facility] Last Admin: 12/19/16 14:42 Dose: Not Given Duloxetine HCl (Cymbalta) 60 mg PO BID [facility] Last Admin: 12/19/16 21:00 Dose: Not Given Fluticasone Propionate (Flonase) 0 gm NASBOTH DAILY PRN PRN Reason: Allergies Heparin Sodium (Porcine) (Heparin Lock Flush 100 Units/Ml Syringe) 500 units FLUSH ASDIRECTED PRN PRN Reason: Keep Vein Open Last Admin: 12/20/16 07:17 Dose: 500 units Potassium Chloride/Sodium Chloride (Normal Saline With 40 Meq Kcl) 1,000 mls @ 125 mls/hr IV ASDIRECTED [facility] Last Admin: 12/20/16 04:27 Dose: 125 mls/hr Lactobacillus Rhamnosus (Culturelle) 1 cap PO DAILY [facility] Levalbuterol HCl (Xopenex) 1.25 mg NEB Q6H PRN PRN Reason: Wheezing Levalbuterol HCl (Xopenex Hfa) 0 gm INH Q4H PRN PRN Reason: Wheezing Metoclopramide HCl (Reglan) 10 mg IVPUSH Q6H PRN PRN Reason: Nausea Last Admin: 12/19/16 15:58 Dose: 10 mg Mometasone Furoate/Formoterol Fumar (Dulera 200-5 Mcg) 2 puff IH BIDRT [facility] Last Admin: 12/20/16 07:32 Dose: 2 puff Montelukast Sodium (Singulair) 10 mg PO BEDTIME [facility] Last Admin: 12/19/16 21:00 Dose: Not Given Multivitamins/Iron (Child Chew Iron) 1 tab PO DAILY [facility] Last Admin: 12/19/16 14:42 Dose: Not Given Ondansetron HCl (Zofran Odt) 4 mg PO Q4H PRN PRN Reason: Nausea Ondansetron HCl (Zofran) 4 mg IVPUSH Q4H PRN PRN Reason: Nausea/Vomiting Last Admin: 12/20/16 01:54 Dose: 4 mg Pantoprazole Sodium (Protonix) 40 mg PO BIDAC [facility] Last Admin: 12/19/16 16:05 Dose: 40 mg Scopolamine (Transderm-Scop) 1.5 mg TOP Q3D PRN PRN Reason: Nausea Last Admin: 12/19/16 14:06 Dose: 1.5 mg Senna/Docusate Sodium (Senna Plus) 2 tab PO BID [facility] Last Admin: 12/19/16 21:00 Dose: Not Given Sucralfate (Carafate) 1 gm PO QIDACANDBED [facility] Last Admin: 12/19/16 20:26 Dose: 1 gm Discontinued Medications Fentanyl (Sublimaze) Confirm Administered Dose 100 mcg .ROUTE .STK-MED ONE Stop: 12/20/16 07:55 Glycopyrrolate (Robinul) 0.4 mg IVPUSH ONETIME ONE Stop: 12/20/16 06:51 Dextrose/Lactated Ringer's (Dextrose 5%-Lactated Ringers) 1,000 mls @ 150 mls/ hr IV ASDIRECTED [facility] Last Admin: 12/19/16 12:40 Dose: 150 mls/hr Lactated Ringer's (Ringers, Lactated) 1,000 mls @ 125 mls/hr IV ASDIRECTED [facility] Multivitamins/Minerals 10 ml/Thiamine HCl 100 mg/ Magnesium Sulfate 2 gm/ Folic Acid 1 mg / Lactated Ringer's 1,015.2 mls @ 200 mls/hr IV ONETIME ONE Stop: 12/19/16 19:04 Last Admin: 12/19/16 14:09 Dose: 200 mls/hr Potassium Chloride 40 meq/ (Premix) 100 mls @ 25 mls/hr IV ONETIME ONE Stop: 12/20/16 00:59 Potassium Chloride 20 meq/ (Premix) 100 mls @ 50 mls/hr IV ONETIME ONE Stop: 12/19/16 22:59 Last Admin: 12/19/16 20:11 Dose: 50 mls/hr Potassium Chloride 20 meq/ (Premix) 100 mls @ 50 mls/hr IV ONETIME ONE Stop: 12/20/16 00:59 Last Admin: 12/19/16 22:29 Dose: 50 mls/hr Metoclopramide HCl (Reglan) 10 mg PO Q8H PRN PRN Reason: Nausea Midazolam HCl (Versed 1 Mg/Ml) Confirm Administered Dose 2 mg .ROUTE .STK-MED ONE Stop: 12/20/16 07:55 Propofol (Diprivan 20 Ml) Confirm Administered Dose 200 mg .ROUTE .STK-MED ONE Stop: 12/20/16 07:55 Consult PN Assessment/Plan POD#: 0 Procedures: Procedures AIRWAY INHALATION TREATMENT (11/24/16) ASSAY OF ACTH (05/25/16) ASSAY OF AMYLASE (12/16/16) ASSAY OF LACTIC ACID (07/10/16) ASSAY OF LIPASE (12/16/16) ASSAY OF MAGNESIUM (12/02/16) ASSAY OF NATRIURETIC PEPTIDE (11/24/15) ASSAY OF PHOSPHORUS (11/24/16) ASSAY OF SOMATOMEDIN (05/25/16) ASSAY OF TROPONIN QUANT (05/02/16) ASSAY THYROID STIM HORMONE (08/04/16) BEHAVRAL QUALIT ANALYS VOICE (05/24/16) BLOOD CULTURE FOR BACTERIA (10/19/16) BLOOD GASES ANY COMBINATION (07/10/16) CHEST X-RAY 1 VIEW FRONTAL (07/10/16) CHEST X-RAY 2VW FRONTAL&LATL (10/19/16) CHORIONIC GONADOTROPIN ASSAY (06/29/13) COMPLETE CBC AUTOMATED (12/02/16) COMPLETE CBC W/AUTO DIFF WBC (12/16/16) COMPREHEN METABOLIC PANEL (12/16/16) CONTRST X-RAY UPPR GI TRACT (10/23/16) CT ABD & PELV W/CONTRAST (12/07/16) CT ABDOMEN W/O DYE (11/24/16) CULTURE SCREEN ONLY (10/14/16) EGD BALLOON DIL ESOPH30 MM/> (12/07/16) EGD DILATE STRICTURE (12/02/16) ELECTROCARDIOGRAM TRACING (05/02/16) EMERGENCY DEPT VISIT (12/16/16) EMERGENCY DEPT VISIT (10/14/16) EMERGENCY DEPT VISIT (06/29/13) ESOPH EGD DILATION <30 MM (11/24/16) FIBRIN DEGRADATION QUANT (12/04/13) HOT OR COLD PACKS THERAPY (06/07/16) HYDRATE IV INFUSION ADD-ON (12/16/16) INFLUENZA A/B AG IA (06/29/13) INFLUENZA ASSAY W/OPTIC (10/14/16) INSERT TUNNELED CV CATH (11/18/16) MANUAL THERAPY 1/> REGIONS (10/30/13) MEASURE BLOOD OXYGEN LEVEL (11/24/16) METABOLIC PANEL TOTAL CA (11/24/16) PT EVALUATION (06/07/16) RBC SED RATE NONAUTOMATED (07/10/16) ROUTINE VENIPUNCTURE (12/16/16) SPEECH/HEARING THERAPY (06/07/16) STREP A AG IA (10/14/16) THER/PROPH/DIAG INJ IV PUSH (12/16/16) THER/PROPH/DIAG INJ SC/IM (11/24/16) THER/PROPH/DIAG IV INF ADDON (11/24/16) THER/PROPH/DIAG IV INF INIT (11/24/16) THERAPEUTIC EXERCISES (06/07/16) TOTAL CORTISOL (05/25/16) TTE W/DOPPLER COMPLETE (01/05/14) TX/PRO/DX INJ NEW DRUG ADDON (11/24/16) TX/PRO/DX INJ SAME DRUG WELDER METAL FAB (11/24/16) TX/PROPH/DG ADDL SEQ IV INF (11/24/16) URINALYSIS AUTO W/SCOPE (10/14/16) WITHDRAWAL OF ARTERIAL BLOOD (07/10/16) X-RAY EXAM OF ABDOMEN (10/19/16) X-RAY EXAM SERIES ABDOMEN (08/04/16) Problem List Initiated/Reviewed/Updated: Yes My Orders last 24 hours: My Active Orders 12/19/16 13:14 Ondansetron [Zofran] 4 mg IVPUSH Q4H PRN 12/19/16 13:18 Verify Patient Consent Obtain [RC] ASDIRECTED 12/19/16 15:27 Metoclopramide [Reglan] 10 mg IVPUSH Q6H PRN 12/19/16 17:00 Sucralfate [Carafate] 1 gm PO QIDACANDBED 12/19/16 21:00 Celecoxib [CeleBREX] 100 mg PO BID Plan: EGD with Dilation today. Orders to be written after EGD. Patient to remain NPO Check BMP, Mag and Phos this AM Shavon Vo
[2016-12-20] MEDS ORDERED: Ondansetron 4 MG/2 ML SDV IVPUSH ONE (08:50)
[2016-12-20] MEDS ORDERED: Lactobacillus Rhamnosus GG (Probiotic) Cap PO SCH (09:00)
[2016-12-20] MEDS: Sucralfate Suspension 1 GM/10 ML Cup PO SCH ×3 (09:27→17:21)
[2016-12-20] MEDS ORDERED: fentaNYL 100 MCG/2 ML SDV IVPUSH ONE (09:30)
[2016-12-20] MEDS: Bisacodyl 5 MG Tab PO SCH (10:03)
[2016-12-20] MEDS: Celecoxib 100 MG Cap PO SCH (10:04)
[2016-12-20] MEDS: Cetirizine 10 MG Tab PO SCH (10:04)
[2016-12-20] MEDS: Pantoprazole 40 MG Tab.CR PO SCH ×2 (10:05→16:29)
[2016-12-20] MEDS: DULoxetine 30 MG Cap PO SCH (10:06)
[2016-12-20] MEDS: Cyanocobalamin (Vitamin B12) 1,000 MCG Tab SL SCH (10:06)
[2016-12-20] MEDS: Multivitamins with Iron Tab.Chew PO SCH (10:07)
[2016-12-20] MEDS ORDERED: Dextrose 5%-Lactated Ringers 1,000 ML IV SCH (10:30)
[2016-12-20 15:04] VITALS: BP 131/68
--- NOTE | 2016-12-20 18:48 | PCM.PN ---
- General Info Date of Service: 12/20/16 - Review of Systems General: Reports: No Symptoms HEENT: Reports: no symptoms Pulmonary: Reports: no symptoms Cardiovascular: Reports: No Symptoms Gastrointestinal: Reports: No symptoms Genitourinary: Reports: no symptoms Musculoskeletal: Reports: no symptoms Skin: Reports: no symptoms Neurological: Reports: No Symptoms Psychiatric: Reports: depression - Patient Data Vitals - most recent: Last Vital Signs Temp 97.0 F 12/20/16 15:00 Pulse 77 12/20/16 15:00 Resp 16 12/20/16 15:00 BP 131/68 12/20/16 15:00 Pulse Ox 95 12/20/16 15:00 Weight - most recent: 290 lb 6.4 oz I&O - last 24 hours: Intake & Output 12/20/16 12/20/16 12/20/16 06:59 14:59 22:59 Intake Total 1296 946 8730 Output Total 400 350 210 Balance 1179 220 863 Lab Results last 24 hrs: Laboratory Results - last 24 hr 12/19/16 12/20/16 12/20/16 Range/Units 19:23 01:34 07:23 Sodium 146 (140-148) mmol/L Potassium 4.0 (3.6-5.2) mmol/L Chloride 110 H (100-108) mmol/L Carbon Dioxide 24 (21-32) mmol/L Anion Gap 16.0 H (5.0-14.0) mmol/L BUN 5 L (7-18) mg/dL Creatinine 0.4 L (0.6-1.0) mg/dL Est Cr Clr Drug Dosing 168.23 mL/min Estimated GFR (MDRD) > 60 (>60) Glucose 82 (74-106) mg/dL Calcium 7.5 L (8.5-10.1) mg/dL Phosphorus 2.9 (2.5-4.9) mg/dL Magnesium 1.7 L (1.8-2.4) mg/dL Urine Color Yellow Yellow Urine Appearance Slightly cloudy Slightly cloudy Urine pH 6.0 6.0 (4.5-8.0) Ur Specific [place] 1.025 1.020 (1.008-1.030) Urine Protein Negative Negative (NEGATIVE) mg/dL Urine Glucose (UA) Normal Normal (NEGATIVE) mg/dL Urine Ketones 50 H 50 H (NEGATIVE) mg/dL Urine Occult Blood Negative Negative (NEGATIVE) Urine Nitrite Negative Negative (NEGATIVE) Urine Bilirubin Negative Negative (NEGATIVE) Urine Urobilinogen 4 1 (NORMAL) mg/dL Ur Leukocyte Esterase Negative Negative (NEGATIVE) Urine RBC 0-5 0-5 (0-5) Urine WBC 0-5 0-5 (0-5) Ur Epithelial Cells Moderate Moderate Amorphous Sediment Not seen Not seen Urine Bacteria Many Moderate Urine Mucus Many Moderate Med Orders - Current: Current Medications Acetaminophen (Tylenol JrMorro Meltawaystan) 640 mg PO Q4H PRN PRN Reason: Pain Last Admin: 12/20/16 10:00 Dose: 640 mg Albuterol/Ipratropium (Duoneb 3.0-0.5 Mg/3 Ml) 3 ml NEB QID PRN PRN Reason: Shortness Of Breath/wheezing Albuterol/Ipratropium (Duoneb 3.0-0.5 Mg/3 Ml) 3 ml INH Q4H PRN PRN Reason: Wheezing Last Admin: 12/20/16 07:35 Dose: 3 ml Alprazolam (Xanax) 1 mg PO TID PRN PRN Reason: Anxiety Benzocaine/Menthol (Cepacol Sore Throat) 1 lozenge MUCMEM 6XDAY PRN PRN Reason: Sore Throat Last Admin: 12/20/16 01:58 Dose: 1 antonia Bisacodyl (Dulcolax) 15 mg PO BID [facility] Last Admin: 12/20/16 10:03 Dose: 15 mg Celecoxib (Celebrex) 100 mg PO BID [facility] Last Admin: 12/20/16 10:04 Dose: 100 mg Cetirizine HCl (Zyrtec) 10 mg PO DAILY [facility] Last Admin: 12/20/16 10:04 Dose: 10 mg Clonazepam (Klonopin) 1 mg PO BEDTIME [facility] Last Admin: 12/19/16 20:33 Dose: 1 mg Cyanocobalamin (Vitamin B12) 500 mcg SL DAILY [facility] Last Admin: 12/20/16 10:06 Dose: 500 mcg Duloxetine HCl (Cymbalta) 60 mg PO BID [facility] Last Admin: 12/20/16 10:06 Dose: 60 mg Fluticasone Propionate (Flonase) 0 gm NASBOTH DAILY PRN PRN Reason: Allergies Heparin Sodium (Porcine) (Heparin Lock Flush 100 Units/Ml Syringe) 500 units FLUSH ASDIRECTED PRN PRN Reason: Keep Vein Open Last Admin: 12/20/16 07:17 Dose: 500 units Dextrose/Lactated Ringer's (Dextrose 5%-Lactated Ringers) 1,000 mls @ 125 mls/ hr IV ASDIRECTED [facility] Last Admin: 12/20/16 10:42 Dose: 125 mls/hr Lactobacillus Rhamnosus (Culturelle) 1 cap PO DAILY [facility] Last Admin: 12/20/16 10:07 Dose: 1 cap Levalbuterol HCl (Xopenex) 1.25 mg NEB Q6H PRN PRN Reason: Wheezing Levalbuterol HCl (Xopenex Hfa) 0 gm INH Q4H PRN PRN Reason: Wheezing Metoclopramide HCl (Reglan) 10 mg IVPUSH Q6H PRN PRN Reason: Nausea Last Admin: 12/19/16 15:58 Dose: 10 mg Mometasone Furoate/Formoterol Fumar (Dulera 200-5 Mcg) 2 puff IH BIDRT [facility] Last Admin: 12/20/16 07:32 Dose: 2 puff Montelukast Sodium (Singulair) 10 mg PO BEDTIME [facility] Last Admin: 12/19/16 21:00 Dose: Not Given Multivitamins/Iron (Child Chew Iron) 1 tab PO DAILY [facility] Last Admin: 12/20/16 10:07 Dose: 1 tab Ondansetron HCl (Zofran Odt) 4 mg PO Q4H PRN PRN Reason: Nausea Ondansetron HCl (Zofran) 4 mg IVPUSH Q4H PRN PRN Reason: Nausea/Vomiting Last Admin: 12/20/16 13:40 Dose: 4 mg Pantoprazole Sodium (Protonix) 40 mg PO BIDAC [facility] Last Admin: 12/20/16 16:29 Dose: 40 mg Scopolamine (Transderm-Scop) 1.5 mg TOP Q3D PRN PRN Reason: Nausea Last Admin: 12/19/16 14:06 Dose: 1.5 mg Senna/Docusate Sodium (Senna Plus) 2 tab PO BID [facility] Last Admin: 12/20/16 10:07 Dose: 2 tab Sucralfate (Carafate) 1 gm PO QIDACANDBED [facility] Last Admin: 12/20/16 17:21 Dose: 1 gm Discontinued Medications Fentanyl (Sublimaze) Confirm Administered Dose 100 mcg .ROUTE .STK-MED ONE Stop: 12/20/16 07:55 Fentanyl (Sublimaze) 50 mcg IVPUSH ONETIME ONE Stop: 12/20/16 09:31 Last Admin: 12/20/16 09:12 Dose: 50 mcg Glycopyrrolate (Robinul) 0.4 mg IVPUSH ONETIME ONE Stop: 12/20/16 06:51 Last Admin: 12/20/16 08:03 Dose: 0.4 mg Dextrose/Lactated Ringer's (Dextrose 5%-Lactated Ringers) 1,000 mls @ 150 [facility]ls[facility] Admin: 12/19/16 12:40 Dose: 150 mls/hr Lactated Ringer's (Ringers, Lactated) 1,000 mls [facility] 125 [facility] Multivitamins/Minerals 10 ml/Thiamine HCl 100 mg/ Magnesium Sulfate 2 gm/ Folic Acid 1 mg / Lactated Ringer's 1,015.2 mls @ 200 mls/hr IV ONETIME ONE Stop: 12/19/16 19:04 Last Admin: 12/19/16 14:09 Dose: 200 mls/hr Potassium Chloride/Sodium Chloride (Normal Saline With 40 Meq Kcl) 1,000 mls @ 125 [facility]ls[facility] Last Admin: 12/20/16 04:27 Dose: 125 mls/hr Potassium Chloride 40 meq/ (Premix) 100 mls @ 25 mls/hr IV ONETIME ONE Stop: 12/20/16 00:59 Potassium Chloride 20 meq/ (Premix) 100 mls @ 50 mls/hr IV ONETIME ONE Stop: 12/19/16 22:59 Last Admin: 12/19/16 20:11 Dose: 50 mls/hr Potassium Chloride 20 meq/ (Premix) 100 mls @ 50 mls/hr IV ONETIME ONE Stop: 12/20/16 00:59 Last Admin: 12/19/16 22:29 Dose: 50 mls/hr Metoclopramide HCl (Reglan) 10 mg PO Q8H PRN PRN Reason: Nausea Midazolam HCl (Versed 1 Mg/Ml) Confirm Administered Dose 2 mg .ROUTE .STK-MED ONE Stop: 12/20/16 07:55 Ondansetron HCl (Zofran) 4 mg IVPUSH ONETIME ONE Stop: 12/20/16 08:51 Last Admin: 12/20/16 08:55 Dose: 4 mg Propofol (Diprivan 20 Ml) Confirm Administered Dose 200 mg .ROUTE .STK-MED ONE Stop: 12/20/16 07:55 - Exam General: alert, oriented HEENT: Pupils equal, Pupils reactive, EOMI, Mucous membr. moist/pink Neck: supple Lungs: Clear to auscultation, Normal respiratory effort Cardiovascular: Regular Rate, Regular Rhythm Abdomen: bowel sounds present, soft, no distension, tenderness Back Exam: normal inspection, full range of motion Extremities: no edema Skin: warm, dry, intact - Problem List Review Problem List Initiated/Reviewed/Updated: Yes - My Orders Last 24 Hours: My Active Orders 12/19/16 21:00 ClonazePAM [KlonoPIN] 1 mg PO BEDTIME Mometasone/Formoterol [Dulera 200-5 MCG] 2 puff IH BIDRT Montelukast [Singulair] 10 mg PO BEDTIME 12/20/16 01:47 Benzocaine/Cetylpyrd/Menthol [Cepacol Sore Throat] 1 lozenge MUCMEM 6XDAY PRN 12/20/16 09:00 Lactobacillus Rhamnosus GG [Culturelle] 1 cap PO DAILY - Plan Plan:: Assessment/plan: #1. Dysphagia with esophageal stenosis. Dilatation was done and stable presently and eating without a problem #2. Dehydration. Resolved #3. Obesity with status post Vivek-en-Y surgery. #4. Asthma. We'll continue with the dual nebs which does work well. Plan home tonight.
--- NOTE | 2016-12-20 18:54 | PCM.DCSUM1 ---
Discharge Summary - Hospital Course Brief History: Shamika came in stating she is having a hard time eating and swallowing anything for the last 24 hours. She had taken less than 8 ounces of fluid In the last 24 hours. If she tried to swallow food and or liquid it would come up almost immediately. She has stated that she peres had 7 dilatations since she had the Vivek-en-Y surgery. She continues to lose a significant amount of weight and she is pleased with the progress in weight loss. - Discharge Data Discharge Date: 12/20/16 Discharge Disposition: Home, Self-Care 01 Condition: Good - Patient Summary/Data Consults: Consultations 12/19/16 12:16 Consult to Physician [CONS] Routine Consulting Provider: Jese Lee Courtesy Call Completed to Consulting Physician: Yes Reason for Consult: Pain, discomfort Person Notified: sreedhar lee Date Notified: 12/19/16 Time Notified: 12:21 Special Instructions: Notified in OR via Meghann Alcala RN. Hospital Course: She was dilated and then able to swallow.. She was dehydrated when she came in and this was corrected. Repeat labs showed correction of K to 4.0. - Discharge Plan Home Medications: Home Meds DULoxetine [Cymbalta] 60 mg PO BID 06/29/13 [History] Cetirizine [ZyrTEC] 10 mg PO DAILY 01/02/14 [History] Montelukast [Singulair] 10 mg PO DAILY #30 tab 01/10/14 [Rx] Albuterol/Ipratropium [DuoNeb 3.0-0.5 MG/3 ML] 3 ml INH Q4H PRN 12/07/15 [ History] Fluticasone Propionate [Flonase] 2 spray NASBOTH DAILY PRN 12/07/15 [History] ALPRAZolam [Alprazolam] 1 mg PO TID PRN 07/10/16 [History] ClonazePAM [KlonoPIN] 1 mg PO BEDTIME 07/10/16 [History] Ondansetron [Zofran ODT] 4 mg PO Q4H PRN 07/10/16 [History] Bariatric Meltaway Vitamin 1 tab PO DAILY 11/09/16 [History] Budesonide/Formoterol Fumarate [Symbicort 160-4.5 Mcg Inhaler] 2 puff IH BID [History] Cyanocobalamin (Vitamin B-12) [Vitamin B-12] 500 mcg SL DAILY 11/09/16 [History] Fluticasone/Vilanterol [Breo Ellipta 200-25 Mcg INH] 1 each IH DAILY 11/09/16 [ History] Lactobacillus Acidophilus [Probiotic] 1 each PO DAILY 11/09/16 [History] Levalbuterol Tartrate [Xopenex HFA] 2 puff INH Q4H PRN 11/09/16 [History] Omeprazole Magnesium [Prilosec Otc] 40 mg PO BID 11/09/16 [History] Scopolamine [Transderm-Scop] 1.5 mg TOP Q3D PRN 11/14/16 [History] Levalbuterol HCl [Xopenex] 1.25 mg NEB Q6H PRN 11/30/16 [History] Acetaminophen [Tylenol Jr. Meltaways] 640 mg PO Q4H PRN #0 tab.dis 12/13/16 [Rx] Bisacodyl [Dulcolax] 15 mg PO BID #100 tablet 12/13/16 [Rx] Celecoxib [CeleBREX] 100 mg PO BID #14 cap 12/13/16 [Rx] Docusate Sodium/Sennosides [Senna Plus] 2 tab PO BID #100 tablet 12/13/16 [Rx] Sucralfate [Carafate] 1 gm PO TIDAC 12/19/16 [History] - Discharge Summary/Plan Comment Discharge Summary/Plan Comment: Will see Dr. Sreedhar Lee next Sunday. I will see her as needed. - General Info Functional Status: Reports: pain controlled - Review of Systems General: Reports: Other (tired) HEENT: Reports: no symptoms Cardiovascular: Reports: No Symptoms Gastrointestinal: Reports: Abdominal pain Genitourinary: Reports: no symptoms Musculoskeletal: Reports: no symptoms Skin: Reports: no symptoms Neurological: Reports: No Symptoms Psychiatric: Reports: depression - Patient Data Vitals - Most Recent: Last Vital Signs Temp 97.0 F 12/20/16 15:00 Pulse 77 12/20/16 15:00 Resp 16 12/20/16 15:00 BP 131/68 12/20/16 15:00 Pulse Ox 95 12/20/16 15:00 Weight - Most Recent: 290 lb 6.4 oz I&O - Last 24 hours: Intake & Output 12/20/16 12/20/16 12/20/16 06:59 14:59 22:59 Intake Total 1056 733 3220 Output Total 400 350 210 Balance 1179 295 863 Lab Results - Last 24 hrs: Laboratory Results - last 24 hr 12/19/16 12/20/16 12/20/16 Range/Units 19:23 01:34 07:23 Sodium 146 (140-148) mmol/L Potassium 4.0 (3.6-5.2) mmol/L Chloride 110 H (100-108) mmol/L Carbon Dioxide 24 (21-32) mmol/L Anion Gap 16.0 H (5.0-14.0) mmol/L BUN 5 L (7-18) mg/dL Creatinine 0.4 L (0.6-1.0) mg/dL Est Cr Clr Drug Dosing 168.23 mL/min Estimated GFR (MDRD) > 60 (>60) Glucose 82 (74-106) mg/dL Calcium 7.5 L (8.5-10.1) mg/dL Phosphorus 2.9 (2.5-4.9) mg/dL Magnesium 1.7 L (1.8-2.4) mg/dL Urine Color Yellow Yellow Urine Appearance Slightly cloudy Slightly cloudy Urine pH 6.0 6.0 (4.5-8.0) Ur Specific [place] 1.025 1.020 (1.008-1.030) Urine Protein Negative Negative (NEGATIVE) mg/dL Urine Glucose (UA) Normal Normal (NEGATIVE) mg/dL Urine Ketones 50 H 50 H (NEGATIVE) mg/dL Urine Occult Blood Negative Negative (NEGATIVE) Urine Nitrite Negative Negative (NEGATIVE) Urine Bilirubin Negative Negative (NEGATIVE) Urine Urobilinogen 4 1 (NORMAL) mg/dL Ur Leukocyte Esterase Negative Negative (NEGATIVE) Urine RBC 0-5 0-5 (0-5) Urine WBC 0-5 0-5 (0-5) Ur Epithelial Cells Moderate Moderate Amorphous Sediment Not seen Not seen Urine Bacteria Many Moderate Urine Mucus Many Moderate Med Orders - Current: Current Medications Acetaminophen (Tylenol JrMorro Meltaways) 640 mg PO Q4H PRN PRN Reason: Pain Last Admin: 12/20/16 10:00 Dose: 640 mg Albuterol/Ipratropium (Duoneb 3.0-0.5 Mg/3 Ml) 3 ml NEB QID PRN PRN Reason: Shortness Of Breath/wheezing Albuterol/Ipratropium (Duoneb 3.0-0.5 Mg/3 Ml) 3 ml INH Q4H PRN PRN Reason: Wheezing Last Admin: 12/20/16 07:35 Dose: 3 ml Alprazolam (Xanax) 1 mg PO TID PRN PRN Reason: Anxiety Benzocaine/Menthol (Cepacol Sore Throat) 1 lozenge MUCMEM 6XDAY PRN PRN Reason: Sore Throat Last Admin: 12/20/16 01:58 Dose: 1 antonia Bisacodyl (Dulcolax) 15 mg PO BID [facility] Last Admin: 12/20/16 10:03 Dose: 15 mg Celecoxib (Celebrex) 100 mg PO BID [facility] Last Admin: 12/20/16 10:04 Dose: 100 mg Cetirizine HCl (Zyrtec) 10 mg PO DAILY [facility] Last Admin: 12/20/16 10:04 Dose: 10 mg Clonazepam (Klonopin) 1 mg PO BEDTIME [facility] Last Admin: 12/19/16 20:33 Dose: 1 mg Cyanocobalamin (Vitamin B12) 500 mcg SL DAILY [facility] Last Admin: 12/20/16 10:06 Dose: 500 mcg Duloxetine HCl (Cymbalta) 60 mg PO BID [facility] Last Admin: 12/20/16 10:06 Dose: 60 mg Fluticasone Propionate (Flonase) 0 gm NASBOTH DAILY PRN PRN Reason: Allergies Heparin Sodium (Porcine) (Heparin Lock Flush 100 Units/Ml Syringe) 500 units FLUSH ASDIRECTED PRN PRN Reason: Keep Vein Open Last Admin: 12/20/16 07:17 Dose: 500 units Dextrose/Lactated Ringer's (Dextrose 5%-Lactated Ringers) 1,000 mls @ 125 mls/ hr IV ASDIRECTED [facility] Last Admin: 12/20/16 10:42 Dose: 125 mls/hr Lactobacillus Rhamnosus (Culturelle) 1 cap PO DAILY [facility] Last Admin: 12/20/16 10:07 Dose: 1 cap Levalbuterol HCl (Xopenex) 1.25 mg NEB Q6H PRN PRN Reason: Wheezing Levalbuterol HCl (Xopenex Hfa) 0 gm INH Q4H PRN PRN Reason: Wheezing Metoclopramide HCl (Reglan) 10 mg IVPUSH Q6H PRN PRN Reason: Nausea Last Admin: 12/19/16 15:58 Dose: 10 mg Mometasone Furoate/Formoterol Fumar (Dulera 200-5 Mcg) 2 puff IH BIDRT [facility] Last Admin: 12/20/16 07:32 Dose: 2 puff Montelukast Sodium (Singulair) 10 mg PO BEDTIME [facility] Last Admin: 12/19/16 21:00 Dose: Not Given Multivitamins/Iron (Child Chew Iron) 1 tab PO DAILY [facility] Last Admin: 12/20/16 10:07 Dose: 1 tab Ondansetron HCl (Zofran Odt) 4 mg PO Q4H PRN PRN Reason: Nausea Ondansetron HCl (Zofran) 4 mg IVPUSH Q4H PRN PRN Reason: Nausea/Vomiting Last Admin: 12/20/16 13:40 Dose: 4 mg Pantoprazole Sodium (Protonix) 40 mg PO BIDAC [facility] Last Admin: 12/20/16 16:29 Dose: 40 mg Scopolamine (Transderm-Scop) 1.5 mg TOP Q3D PRN PRN Reason: Nausea Last Admin: 12/19/16 14:06 Dose: 1.5 mg Senna/Docusate Sodium (Senna Plus) 2 tab PO BID [facility] Last Admin: 12/20/16 10:07 Dose: 2 tab Sucralfate (Carafate) 1 gm PO QIDACANDBED [facility] Last Admin: 12/20/16 17:21 Dose: 1 gm Discontinued Medications Fentanyl (Sublimaze) Confirm Administered Dose 100 mcg .ROUTE .STK-MED ONE Stop: 12/20/16 07:55 Fentanyl (Sublimaze) 50 mcg IVPUSH ONETIME ONE Stop: 12/20/16 09:31 Last Admin: 12/20/16 09:12 Dose: 50 mcg Glycopyrrolate (Robinul) 0.4 mg IVPUSH ONETIME ONE Stop: 12/20/16 06:51 Last Admin: 12/20/16 08:03 Dose: 0.4 mg Dextrose/Lactated Ringer's (Dextrose 5%-Lactated Ringers) 1,000 mls @ 150 mls/ hr IV ASDIRECTED [facility] Last Admin: 12/19/16 12:40 Dose: 150 mls/hr Lactated Ringer's (Ringers, Lactated) 1,000 mls @ 125 mls/hr IV ASDIRECTED [facility] Multivitamins/Minerals 10 ml/Thiamine HCl 100 mg/ Magnesium Sulfate 2 gm/ Folic Acid 1 mg / Lactated Ringer's 1,015.2 mls @ 200 mls/hr IV ONETIME ONE Stop: 12/19/16 19:04 Last Admin: 12/19/16 14:09 Dose: 200 mls/hr Potassium Chloride/Sodium Chloride (Normal Saline With 40 Meq Kcl) 1,000 mls @ 125 mls/hr IV ASDIRECTED [facility] Last Admin: 12/20/16 04:27 Dose: 125 mls/hr Potassium Chloride 40 meq/ (Premix) 100 mls @ 25 mls/hr IV ONETIME ONE Stop: 12/20/16 00:59 Potassium Chloride 20 meq/ (Premix) 100 mls @ 50 mls/hr IV ONETIME ONE Stop: 12/19/16 22:59 Last Admin: 12/19/16 20:11 Dose: 50 mls/hr Potassium Chloride 20 meq/ (Premix) 100 mls @ 50 mls/hr IV ONETIME ONE Stop: 12/20/16 00:59 Last Admin: 12/19/16 22:29 Dose: 50 mls/hr Metoclopramide HCl (Reglan) 10 mg PO Q8H PRN PRN Reason: Nausea Midazolam HCl (Versed 1 Mg/Ml) Confirm Administered Dose 2 mg .ROUTE .STK-MED ONE Stop: 12/20/16 07:55 Ondansetron HCl (Zofran) 4 mg IVPUSH ONETIME ONE Stop: 12/20/16 08:51 Last Admin: 12/20/16 08:55 Dose: 4 mg Propofol (Diprivan 20 Ml) Confirm Administered Dose 200 mg .ROUTE .STK-MED ONE Stop: 12/20/16 07:55 - Exam General: Reports: alert, oriented HEENT: Reports: Pupils equal, Pupils reactive, EOMI, Mucous membr. moist/pink Neck: Reports: supple Lungs: Reports: Clear to auscultation, Normal respiratory effort Cardiovascular: Reports: Regular Rate, Regular Rhythm Abdomen: Reports: tenderness Back Exam: Reports: normal inspection, full range of motion Extremities: Reports: no edema, normal pulses Skin: Reports: warm, dry, intact Neurological: Reports: no new focal deficit Psy/Mental Status: Reports: depressed *Q Meaningful Use (DIS) - VTE *Q VTE Criteria *Q: - Stroke *Q Stroke Criteria *Q: - AMI *Q AMI Criteria *Q:
--- NOTE | 2016-12-21 18:31 | OR ---
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 POSTOPERATIVE DIAGNOSIS: Moderate strictured gastrojejunostomy. OPERATIVE PROCEDURE: Upper GI endoscopy with dilation gastrojejunostomy (70669). ANESTHESIA: IV sedation. INDICATIONS: The patient presents once again with some stricturing at her gastrojejunostomy. Plan is to proceed with upper GI endoscopy with dilation as indicated. Potential risks including bleeding and perforation were discussed, and the patient wishes to proceed. DETAILS OF PROCEDURE: The patient was taken to the operating room and placed in a left lateral decubitus position. IV sedation was administered, after which the upper GI endoscope was passed orally through the length of the esophagus into the area in the esophagogastric junction. There was a stricture present at that point requiring prior gastrointestinal catheter was centered across the anastomosis and inflated to 36- [place] size, was held in position for one month, after which balloon catheter deflated and withdrawn. The scope could easily then be passed through the anastomosis. No complications were noted. The procedure concluded. The patient was taken to the recovery room in satisfactory condition. Jese Grissom MD /[id number]
== END 2016-12-20 20:08 | disposition home or self-care (01) ==
LOC: JP.2SS 11:59
PROVIDERS: ADMIT Internal Medicine; ATTEND Internal Medicine
DX: K91.89 Other postprocedural complications and disorders of digestive system (principal); K22.2 Esophageal obstruction; J44.9 Chronic obstructive pulmonary disease, unspecified; J45.909 Unspecified asthma, uncomplicated; K21.9 Gastro-esophageal reflux disease without esophagitis; Z88.8 Allergy status to other drugs, medicaments and biological substances; Z91.040 Latex allergy status; Z91.018 Allergy to other foods; Z79.899 Other long term (current) drug therapy; G47.30 Sleep apnea, unspecified; F41.8 Other specified anxiety disorders; E66.9 Obesity, unspecified; E55.9 Vitamin D deficiency, unspecified; Z90.49 Acquired absence of other specified parts of digestive tract; Z98.890 Other specified postprocedural states; Z98.51 Tubal ligation status; Z90.3 Acquired absence of stomach [part of]; E86.0 Dehydration
CPT/HCPCS: 36415; 43245; 71020; 80048; 80053; 81001; 83735; 84100; 85025; 94640; 96361; 96365; 96366; 96368; 96375; 96376; A9270; G0378; G0379; J1642; J2250; J2405; J2704; J2765; J3010; J3411; J3475; J3480; J7042; J7120; J7620; J3490

== ENCOUNTER 2016-12-26 07:54 | Day surgery (SDC) | payer BC, MEDICAID ==
[2016-12-26] MEDS ORDERED: Lactated Ringers 1,000 ML IV SCH (08:30)
[2016-12-26] MEDS ORDERED: Cyanocobalamin (Vitamin B12) 1,000 MCG/ML SDV IM ONE (08:30)
[2016-12-26] MEDS ORDERED: Glycopyrrolate 0.2 MG/ML 2 ML SYRINGE IVPUSH ONE (09:00)
[2016-12-26] MEDS ORDERED: MVI, Adult with Vitamin K 10 ML, Thiamine 200 MG, Chromium/Copper/Mang/Selen/Zn 1 ML in... IV ONE ×4 (10:00)
[2016-12-26] MEDS ORDERED: Midazolam 1 MG/ML 2 ML SDV ONE (10:06)
[2016-12-26] MEDS ORDERED: fentaNYL 100 MCG/2 ML SDV ONE (10:06)
[2016-12-26] MEDS ORDERED: Propofol 200 MG/20 ML SDV ONE (10:06)
[2016-12-26] MEDS ORDERED: Potassium Acetate 20 MEQ in Sodium Chloride 0.9% 150 ML IV SCH (11:00)
[2016-12-26 12:26] VITALS: BP 137/87
[2016-12-26] MEDS ORDERED: Acetaminophen 160 MG Tab,Disintegrating PO ONE (14:00)
--- NOTE | 2016-12-31 13:54 | OR ---
DATE OF PROCEDURE: 12/26/2016 PREOPERATIVE DIAGNOSIS: Recurrent stricturing at gastrojejunostomy. POSTOPERATIVE DIAGNOSIS: Recurrent stricturing at gastrojejunostomy. OPERATIVE PROCEDURE: Upper GI endoscopy with dilation of gastrojejunostomy (81271). ANESTHESIA: IV sedation. INDICATION FOR PROCEDURE: The patient is presenting with some recurrent symptoms of stricturing at her gastrojejunostomy. Plan is to proceed with upper GI endoscopy with dilation as indicated. Potential risks including bleeding and perforation were discussed, and the patient wishes to proceed. DETAILS OF PROCEDURE: The patient was taken to the operating room, placed in the left lateral decubitus position. IV sedation was administered, and the upper GI endoscope was passed orally through the length of the esophagus and into area of the gastrojejunostomy. This was at this point patent enough that the 1 cm scope easily passed through the area. There was minimal inflammation present at this time. The Bard gastrointestinal balloon catheter was then centered across the anastomosis and inflated to 45-Irish size. This was held in position for 1 minute after which the balloon catheter was deflated and withdrawn. Satisfactory dilation was confirmed. No complications were evident. The scope was then withdrawn. The procedure then concluded. There were no evident complications. Jese Grissom MD /[id number]
== END 2016-12-26 15:00 | disposition home or self-care (01) ==
LOC: JP.SDS 07:54
PROVIDERS: ATTEND Surgery
PROC: 0D768ZZ Dilation of Stomach, Via Natural or Artificial Opening Endoscopic (ICD-10-PCS; principal; 2016-12-26)
DX: K91.89 Other postprocedural complications and disorders of digestive system (principal); R13.10 Dysphagia, unspecified; R11.2 Nausea with vomiting, unspecified; Z98.84 Bariatric surgery status; Z98.0 Intestinal bypass and anastomosis status
CPT/HCPCS: 36415; 43245; 80053; 83735; 84100; 85027; A9270; J1642; J2250; J2704; J3010; J3411; J3420; J7040; J7120; J3490

== ENCOUNTER 2017-01-06 08:59 | Day surgery (SDC) | payer BC, MEDICAID ==
[~2017-01-06 08:59] MED LIST changes: -Bupivacaine 0.5% 50 ML MDV ONE; -Bupivacaine 0.5%/EPINEPHrine 1:200,000 50 ML MDV ONE; -Lidocaine 0.5% 50 ML SDV ONE; -Lidocaine 1% with EPINEPHrine 1:100,000 50 ML MDV ONE; +Midazolam 1 MG/ML 2 ML SDV ONE; +Propofol 200 MG/20 ML SDV ONE; +fentaNYL 100 MCG/2 ML SDV ONE
[2017-01-06] MEDS ORDERED: Lactated Ringers 1,000 ML IV SCH (09:15)
[2017-01-06] MEDS ORDERED: Cyanocobalamin (Vitamin B12) 1,000 MCG/ML SDV IM ONE (09:30)
[2017-01-06] MEDS ORDERED: Glycopyrrolate 0.2 MG/ML 2 ML SYRINGE IVPUSH ONE (09:45)
[2017-01-06] MEDS ORDERED: MVI, Adult with Vitamin K 10 ML, Thiamine 200 MG, Chromium/Copper/Mang/Selen/Zn 1 ML in... IV ONE ×4 (10:15)
[2017-01-06] MEDS ORDERED: Ondansetron 4 MG/2 ML SDV IVPUSH ONE (12:04)
[2017-01-06] MEDS ORDERED: Meperidine PF 75 MG/ML Syringe IM ONE (12:04)
[2017-01-06] MEDS ORDERED: hydrOXYzine HCl 50 MG/ML SDV IM ONE (12:05)
[2017-01-06 12:52] VITALS: BP 135/77
--- NOTE | 2017-01-08 11:52 | OR ---
DATE OF PROCEDURE: 01/06/2017 PREOPERATIVE DIAGNOSIS: Stricture of gastrojejunostomy. POSTOPERATIVE DIAGNOSIS: Stricture of gastrojejunostomy. OPERATIVE PROCEDURE: Upper GI endoscopy with dilation gastrojejunostomy (78180). ANESTHESIA: IV sedation. INDICATIONS FOR PROCEDURE: The patient presents once again with some signs of stricturing at her gastrojejunostomy. Overall, the clinical appearance has been improving. Plan is to proceed with upper GI endoscopy with dilation as indicated. Potential risks including bleeding and perforation were discussed, and the patient wishes to proceed. PROCEDURE IN DETAIL: The patient was taken to the operating room and placed in a left lateral decubitus position. IV sedation was administered, after which the upper GI endoscope was passed orally through the length of the esophagus and into the gastric pouch. There was a moderate stricture present with the scope not quite being able to be passed through the anastomosis. Bard gastrointestinal balloon catheter was then centered across the anastomosis and then inflated to a 45-Khmer size. This inflated at stage III, i.e. 60 PSI, and held in position for 1 minute. Following this, the balloon catheter was deflated and the anastomosis examined and found to be clean and no complication noticed. The scope was withdrawn and the procedure then concluded. Jese Grissom MD /[id number]
== END 2017-01-06 13:39 | disposition home or self-care (01) ==
LOC: JP.SDS 08:59
PROVIDERS: ATTEND Surgery
DX: K91.89 Other postprocedural complications and disorders of digestive system (principal); J45.909 Unspecified asthma, uncomplicated; Z88.8 Allergy status to other drugs, medicaments and biological substances; Z91.040 Latex allergy status; Z91.018 Allergy to other foods
CPT/HCPCS: 43245; J1642; J2175; J2250; J2405; J2704; J3010; J3410; J3411; J3420; J7120

== ENCOUNTER 2017-01-26 07:24 | Day surgery (SDC) | payer BC, MEDICAID ==
[2017-01-26] MEDS ORDERED: Lactated Ringers 1,000 ML IV SCH (07:30)
[2017-01-26] MEDS ORDERED: Sodium Chloride 0.9% 10 ML Syringe FLUSH PRN (08:06)
[2017-01-26] MEDS ORDERED: Cyanocobalamin (Vitamin B12) 1,000 MCG/ML SDV IM ONE (08:15)
[2017-01-26] MEDS ORDERED: fentaNYL 100 MCG/2 ML SDV ONE (08:18)
[2017-01-26] MEDS ORDERED: Propofol 200 MG/20 ML SDV ONE (08:18)
[2017-01-26] MEDS ORDERED: Midazolam 1 MG/ML 2 ML SDV ONE (08:18)
[2017-01-26] MEDS ORDERED: Dexamethasone 4 MG/ML SDV ONE (08:28)
[2017-01-26] MEDS ORDERED: Ondansetron 4 MG/2 ML SDV ONE (08:28)
[2017-01-26] MEDS ORDERED: Glycopyrrolate 0.2 MG/ML 2 ML SYRINGE IVPUSH ONE (08:30)
[2017-01-26] MEDS ORDERED: MVI, Adult with Vitamin K 10 ML, Thiamine 200 MG, Chromium/Copper/Mang/Selen/Zn 1 ML in... IV ONE ×4 (09:00)
[2017-01-26 11:31] VITALS: BP 133/79
--- NOTE | 2017-01-29 07:46 | OR ---
DATE OF PROCEDURE: 01/26/2017 PREOPERATIVE DIAGNOSIS: Stricture of esophagojejunostomy. POSTOPERATIVE DIAGNOSIS: Stricture of esophagojejunostomy. OPERATIVE PROCEDURE: Upper GI endoscopy with dilation of esophagojejunostomy ([id number]). ANESTHESIA: IV sedation. INDICATION FOR PROCEDURE: This is a 41-year-old presenting with some symptoms suggestive of stricturing at her esophagojejunostomy. Plan is to proceed with upper GI endoscopy with dilation as indicated. Potential risks including bleeding and perforation were discussed, and the patient wishes to proceed. DETAILS OF PROCEDURE: The patient was taken to the room after being placed in left lateral decubitus position. IV sedation was administered, after which the upper GI endoscope was passed orally through the length of the esophagus. At the esophagojejunostomy, the patient was noted to have stricture with an estimated diameter of the lumen around 8 mm. Initially, a Bard gastrointestinal catheter was then centered across the anastomosis. This was then inflated to 45-[place]er size, but the balloon didn't perforate to a probable impingement by a staple. The second balloon catheter was then placed and inflated to 45-[place] Islander size to level one, which was 30 PSI. Upon removal of that dilator, the patient was still noted to have quite a bit in the way of dense scar and not quite allowing the passage of the scope through the anastomosis. Given this, then a 36-[place]er balloon catheter was centered across the anastomosis, and in this case inflated to allow full pressure. This was held in position for additional 1 minute, after which, the balloon catheter deflated and withdrawn, the scope was then able to be passed through the anastomosis. No complications were noted and the patient tolerated the procedure well. She was taken to the recovery room in satisfactory condition. The patient's anastomosis appeared to be associated with quite dense scarring and we would like to get this diameter somewhat larger than we safely able to do today. Given this, she will be scheduled next week for repeat endoscopy and dilation. At that point, we will try to get up to 45-[place] Islander size. If the patient continues to have recurrent stricturing, one might consider placement of a stent for a period of 2 weeks or so. Jese Grissom MD /[id number]
== END 2017-01-26 11:37 | disposition home or self-care (01) ==
LOC: JP.SDS 07:24
PROVIDERS: ATTEND Surgery
DX: K91.89 Other postprocedural complications and disorders of digestive system (principal); Z88.8 Allergy status to other drugs, medicaments and biological substances; Z91.018 Allergy to other foods; Z91.040 Latex allergy status; Z91.09 Other allergy status, other than to drugs and biological substances
CPT/HCPCS: 43249; J1100; J2250; J2405; J2704; J3010; J3411; J3420; J7050; J7120

== ENCOUNTER 2017-01-30 08:58 | Day surgery (SDC) | payer BC, MEDICAID ==
[2017-01-30] MEDS ORDERED: Lactated Ringers 1,000 ML IV SCH (09:15)
[2017-01-30] MEDS ORDERED: Cyanocobalamin (Vitamin B12) 1,000 MCG/ML SDV IM ONE (09:30)
[2017-01-30] MEDS ORDERED: Glycopyrrolate 0.2 MG/ML 2 ML SYRINGE IVPUSH ONE (09:45)
[2017-01-30] MEDS ORDERED: MVI, Adult with Vitamin K 10 ML, Thiamine 200 MG, Chromium/Copper/Mang/Selen/Zn 1 ML in... IV ONE ×4 (10:00)
[2017-01-30 11:46] VITALS: BP 146/88
--- NOTE | 2017-02-05 14:18 | OR ---
DATE OF PROCEDURE: 01/30/2017 PREOPERATIVE DIAGNOSIS: Stricture gastrojejunostomy. POSTOPERATIVE DIAGNOSIS: Stricture gastrojejunostomy. OPERATIVE PROCEDURE: Upper GI endoscopy with dilation gastrojejunostomy ([id number]). ANESTHESIA: IV sedation. INDICATION FOR PROCEDURE: The patient was taken to the operating room and placed in left lateral decubitus position. IV sedation was administered, after which the upper GI endoscope was passed orally through the esophagus and into the gastric pouch. No retained food or fluid was noted. There was moderate stricture present with an estimated diameter now around 1 cm. The 1 cm scope to be gently passed through the anastomosis. A Bard gastrointestinal balloon catheter was centered across the anastomosis and inflated to 45- Faroese size. This was held in position for 1 minute, after which balloon catheter was deflated and withdrawn. The scope was easily then passed through the anastomosis. No complications were noted. The scope was withdrawn, and taken to the recovery room in satisfactory condition. Jese Grissom MD /[id number]
== END 2017-01-30 13:15 | disposition home or self-care (01) ==
LOC: JP.SDS 08:58
PROVIDERS: ATTEND Surgery
DX: K91.89 Other postprocedural complications and disorders of digestive system (principal); Z91.040 Latex allergy status; Z91.018 Allergy to other foods; Z88.8 Allergy status to other drugs, medicaments and biological substances; J30.1 Allergic rhinitis due to pollen
CPT/HCPCS: 43245; J1642; J2250; J2704; J3010; J3411; J3420; J7120

== ENCOUNTER 2017-01-30 16:07 | Inpatient (IN) | payer BC, MEDICAID ==
[2017-01-30] MEDS ORDERED: HYDROmorphone 0.5 MG/0.5 ML Syringe IVPUSH ONE ×2 (17:31→19:35)
[2017-01-30] MEDS ORDERED: Ondansetron 4 MG/2 ML SDV IVPUSH ONE ×2 (17:32→19:36)
--- NOTE | 2017-01-30 17:38 | EDM.PDOC ---
<Melinda Thomas - Last Filed: 01/30/17 17:53> ED HPI GENERAL MEDICAL PROBLEM - General Chief Complaint: Abdominal Pain Stated Complaint: STOMACH/RT SHOULDER PAIN Time Seen by Provider: 01/30/17 17:32 Source of Information: Reports: Patient History Limitations: Reports: No limitations - History of Present Illness INITIAL COMMENTS - FREE TEXT/NARRATIVE: pt has had a total gastrectomy. She has been dilated multiple times. She was dilated today and she is now having severe epigastric shoulder and chest pain. Onset: today, other ( This occurred 2-3 hours after the dilation) Duration: Hour(s):, Getting worse Location: Reports: chest, abdomen, other ( shoulder. ) Quality: Reports: Sharp, Stabbing Severity: moderate Associated Symptoms: Reports: chest pain Epigastric Pain Score (Numeric/FACES): 7 - Related Data Allergies Allergy/AdvReac Type Severity Reaction Status Date / Time banana Allergy Severe Swollen Verified 01/30/17 16:26 Tongue walnut Allergy Intermediate Swollen Verified 01/30/17 16:26 Tongue latex Allergy Cannot Verified 01/30/17 16:26 Remember mold Allergy Wheezing Verified 01/30/17 16:26 morphine Allergy Hives Verified 01/30/17 16:26 pollen extracts Allergy Wheezing Verified 01/30/17 16:26 DUST Allergy Unknown Wheezing Uncoded 01/30/17 16:26 SMOKE AdvReac Intermediate Bronchospas Uncoded 01/30/17 16:26 ms Home Meds: Home Meds DULoxetine [Cymbalta] 60 mg PO BID 06/29/13 [History] Cetirizine [ZyrTEC] 10 mg PO DAILY 01/02/14 [History] Montelukast [Singulair] 10 mg PO DAILY #30 tab 01/10/14 [Rx] Albuterol/Ipratropium [DuoNeb 3.0-0.5 MG/3 ML] 3 ml INH Q4H PRN 12/07/15 [ History] Fluticasone Propionate [Flonase] 2 spray NASBOTH DAILY PRN 12/07/15 [History] ALPRAZolam [Alprazolam] 1 mg PO TID PRN 07/10/16 [History] ClonazePAM [KlonoPIN] 1 mg PO BEDTIME 07/10/16 [History] Ondansetron [Zofran ODT] 4 mg PO Q4H PRN 07/10/16 [History] Bariatric [place]eltaway Vitamin 1 tab PO DAILY 11/09/16 [History] Budesonide/Formoterol Fumarate [Symbicort 160-4.5 Mcg Inhaler] 2 puff IH BID [History] Cyanocobalamin (Vitamin B-12) [Vitamin B-12] 500 mcg SL DAILY 11/09/16 [History] Fluticasone/Vilanterol [Breo Ellipta 200-25 Mcg INH] 1 each IH DAILY 11/09/16 [ History] Lactobacillus Acidophilus [Probiotic] 1 each PO DAILY 11/09/16 [History] Levalbuterol Tartrate [Xopenex HFA] 2 puff INH Q4H PRN 11/09/16 [History] Omeprazole Magnesium [Prilosec Otc] 40 mg PO BID 11/09/16 [History] Scopolamine [Transderm-Scop] 1.5 mg TOP Q3D PRN 11/14/16 [History] Levalbuterol HCl [Xopenex] 1.25 mg NEB Q6H PRN 11/30/16 [History] Acetaminophen [Tylenol Jr. Meltaways] 640 mg PO Q4H PRN #0 tab.dis 12/13/16 [Rx] Bisacodyl [Dulcolax] 15 mg PO BID #100 tablet 12/13/16 [Rx] Celecoxib [CeleBREX] 100 mg PO BID #14 cap 12/13/16 [Rx] Docusate Sodium/Sennosides [Senna Plus] 2 tab PO BID #100 tablet 12/13/16 [Rx] Sucralfate [Carafate] 1 gm PO TIDAC 12/19/16 [History] Prochlorperazine [Compazine] 5 mg PO Q6H PRN 12/26/16 [History] Past Medical History HEENT History: Reports: Sinusitis, Other (see below) Other HEENT History: TMJ. soften Palate Cardiovascular History: Reports: Heart murmur, Other (see below) Other Cardiovascular History: Mitral Valve Regurgitation. Left heart faliure "stiff" Respiratory History: Reports: Asthma, Bronchitis, recurrent, COPD, Intubation, previous, Pneumonia, recurrent, Sleep apnea, SOB, Other (see below) Other Respiratory History: polyp on laynex; intubated x2 after "quit breathing" . c-pap Gastrointestinal History: Reports: Bowel obstruction, Cholelithiasis, Chronic constipation, GERD Genitourinary History: Reports: Urinary incontinence [employer] History: Reports: Polycystic Ovaries, Musculoskeletal History: Reports: Back pain, chronic, Fracture, Fibromyalgia, Other (see below) Other Musculoskeletal History: knee/ankle pain bilateral Neurological History: Reports: Concussion, Headaches, chronic, Migraines, Seizure, Vertigo Psychiatric History: Reports: Anxiety, Depression, Eating disorders, Mood swings , Panic attack Endocrine/Metabolic History: Reports: Obesity/BMI 30+, Vitamin D deficiency, Other (see below) Other Endocrine/Metabolic History: prediabetic/adrenal gland deficiency Hematologic History: Reports: Anemia, B12 deficiency, Folic acid Immunologic History: Reports: Other (see below) Other Immunologic History: due to steriod use for medical reasons, "they" feel her immune system is compromised Oncologic (Cancer) History: Reports: None Dermatologic History: Reports: Cellulitis, Other (see below) Other Dermatologic History: biopsy of face for moles - Infectious Disease History Infectious Disease History: Reports: Chicken pox, Shingles Other Infectious Disease History: Viral meningitis - Past Surgical History HEENT Surgical History: Reports: LASIK, Oral surgery Cardiovascular Surgical History: Reports: Other (see below) Other Cardiovascular Surgeries/Procedures: angiogram GI Surgical History: Reports: Cholecystectomy, EGD, Esophageal dilatation, Hernia repair/other, Nigel fundoplication, Other (see below) Other GI Surgeries/Procedures: gastrectomy; gastric tumor removed; enlarged liver-has had biopsy Female Surgical History: Reports: section, Tubal ligation Social & Family History - Family History Family Medical History: Noncontributory Cardiac: Reports: Pacemaker Respiratory: Reports: Asthma, COPD, Other (see below) Other Respiratory Family Hisory: bronchitis GI: Reports: Irritable bowel syndrome OBGYN: Reports: Musculoskeletal: Reports: Arthritis Neurological: Reports: Cerebral aneurysms Psychiatric: Reports: Anxiety, Depression Endocrine/Metabolic: Reports: Diabetes, type II, Hypothyroidism, Obesity/MBI 30+ , Vitamin D deficiency Hematologic: Reports: B12 deficiency Immunologic: Reports: None Oncologic: Reports: Brain, Lung, Skin - Tobacco Use Smoking Status *Q: Never Smoker Second Hand Smoke Exposure: No - Caffeine Use Caffeine Use: Reports: Coffee Other Caffeine Use: 2 cups coffee per day and 1-2 sodas - Alcohol Use Days Per Week of Alcohol Use: 0 - Recreational Drug Use Recreational Drug Use: No - Living Situation & Occupation Living situation: Reports: , with family (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 ) : Reports: no symptoms Musculoskeletal: Reports: no symptoms Skin: Reports: no symptoms ED EXAM, GI/ABD - Physical Exam Exam: See Below Text/Narrative:: pt arrived with pain in her chest abdoman and shoulder. This occured about 3 hours after the dilation. Exam Limited By: No limitations General Appearance: alert, anxious Ears: normal TMs Nose: normal inspection Throat/Mouth: Normal inspection Head: atraumatic Neck: normal inspection Respiratory/Chest: no respiratory distress, other ( she does have pain when she takes a deep breath. ) Cardiovascular: regular rate, rhythm GI/Abdominal: Other (Pt has tenderness in the epigastric area. ) Rectal (Female) Exam: Deferred Back Exam: normal inspection Extremities: normal inspection Neurological: alert, oriented, normal cognition Psychiatric: anxious Course - Vital Signs Last Recorded V/S: Last Vital Signs Temp 36.0 C 01/30/17 16:29 Pulse 84 01/30/17 16:29 Resp 16 01/30/17 16:29 BP 144/68 H 01/30/17 16:29 Pulse Ox 96 01/30/17 16:29 - Orders/Labs/Meds Orders: Active Orders 24 hr Category Date Time Status Abdomen Pelvis w Cont [CT] Stat Exams 01/30/17 17:52 Taken Abdomen Series w Chest 1V [CR] Stat Exams 01/30/17 17:30 Taken Iopamidol [Isovue-300 (61%)] Med 01/30/17 17:57 Active 150 ml IV . DIRECTED PRN Sodium Chloride 0.9% [Normal Saline] 1,000 ml Med 01/30/17 17:45 Active IV ASDIRECTED Sodium Chloride 0.9% [Normal Saline] 90 ml Med 01/30/17 18:00 Active IV ASDIRECTED Medication Orders Sodium Chloride (Normal Saline) 1,000 mls @ 500 mls/hr IV ASDIRECTED ALEX Last Admin: 01/30/17 17:58 Dose: 500 mls/hr Sodium Chloride (Normal Saline) 90 mls @ 3.5 mls/sec IV ASDIRECTED ALEX Last Admin: 01/30/17 18:58 Dose: 3.5 mls/sec Iopamidol (Isovue-300 (61%)) 150 ml IV . DIRECTED PRN PRN Reason: RADIOLOGY EXAM Stop: 01/31/17 17:58 Last Admin: 01/30/17 19:00 Dose: 150 ml Labs: Laboratory Tests 01/30/17 01/30/17 Range/Units 17:38 17:38 WBC 6.4 (4.5-11.0) K/uL RBC 4.16 (3.30-5.50) M/uL Hgb 11.8 L (12.0-15.0) g/dL Hct 35.6 L (36.0-48.0) % MCV 86 (80-98) fL MCH 28 (27-31) pg MCHC 33 (32-36) % Plt Count 243 (150-400) K/uL Neut % (Auto) 68 H (36-66) % Lymph % (Auto) 22 L (24-44) % [place] % (Auto) 7 H (2-6) % Eos % (Auto) 2 (2-4) % Baso % (Auto) 1 (0-1) % Sodium 142 (140-148) mmol/L Potassium 3.8 (3.6-5.2) mmol/L Chloride 107 (100-108) mmol/L Carbon Dioxide 28 (21-32) mmol/L Anion Gap 6.6 (5.0-14.0) mmol/L BUN 7 (7-18) mg/dL Creatinine 0.5 L (0.6-1.0) mg/dL Est Cr Clr Drug Dosing 134.58 mL/min Estimated GFR (MDRD) > 60 (>60) Glucose 88 (74-106) mg/dL Calcium 8.1 L (8.5-10.1) mg/dL Total Bilirubin 0.3 (0.2-1.0) mg/dL AST 18 (15-37) U/L ALT 29 (12-78) U/L Alkaline Phosphatase 69 (46-116) U/L Total Protein 6.1 L (6.4-8.2) g/dL Albumin 3.0 L (3.4-5.0) g/dL Globulin 3.1 (2.3-3.5) g/dL Albumin/Globulin Ratio 1.0 L (1.2-2.2) Meds: Medications Generic Name Dose Route Start Last Admin Trade Name Freq PRN Reason Stop Dose Admin Sodium Chloride 1,000 mls @ 500 mls/hr 01/30/17 17:45 01/30/17 17:58 Normal Saline IV 500 mls/hr ASDIRECTED ALEX Administration Sodium Chloride 90 mls @ 3.5 mls/sec 01/30/17 18:00 01/30/17 18:58 Normal Saline IV 3.5 mls/sec ASDIRECTED ALEX Administration Iopamidol 150 ml 01/30/17 17:57 01/30/17 19:00 Isovue-300 (61%) IV 01/31/17 17:58 150 ml . DIRECTED PRN Administration RADIOLOGY EXAM Discontinued Medications Generic Name Dose Route Start Last Admin Trade Name Freq PRN Reason Stop Dose Admin Hydromorphone HCl 0.5 mg 01/30/17 17:31 01/30/17 17:58 Dilaudid IVPUSH 01/30/17 17:32 0.5 mg ONETIME ONE Administration Hydromorphone HCl 0.5 mg 01/30/17 19:35 Dilaudid IVPUSH 01/30/17 19:36 ONETIME ONE Ondansetron HCl 4 mg 01/30/17 17:32 01/30/17 17:59 Zofran IVPUSH 01/30/17 17:33 4 mg ONETIME ONE Administration Ondansetron HCl 4 mg 01/30/17 19:36 Zofran IVPUSH 01/30/17 19:37 ONETIME ONE Sodium Chloride 10 ml 01/30/17 17:57 01/30/17 18:59 Saline Flush FLUSH 01/30/17 17:58 10 ml ONETIME ONE Administration - Re-Assessments/Exams Free Text/Narrative Re-Assessment/Exam: 01/30/17 17:53 flat and upright looks like there is free air . Will do a cat scan of the abdoman. Departure - Departure Disposition: Admitted As Inpatient 67 Clinical Impression: Peritoneal free air - Discharge Information Referrals: Abran Roca Sr, MD [Primary Care Provider] - Jese Grissom MD [Physician] - Forms: ED Department Discharge <Danny Darling - Last Filed: 01/30/17 20:08> ED HPI GENERAL MEDICAL PROBLEM - History of Present Illness INITIAL COMMENTS - FREE TEXT/NARRATIVE: CT results shows free air probably coming from the proximal stomach. I spoke with Dr. Grissom and the patient will be admitted on IV fluids Meropenem and and a ORTHODONTIC TECHNICIAN pump for pain and kept n.p.o. Departure - Departure Time of Disposition: 20:07 Condition: fair
[2017-01-30] MEDS ORDERED: Sodium Chloride 0.9% 1,000 ML IV SCH (17:45)
[2017-01-30] MEDS ORDERED: Iopamidol 612 MG/ML 150 ML Bottle IV PRN (17:57)
[2017-01-30] MEDS ORDERED: Sodium Chloride 0.9% 90 ML IV SCH (18:00)
[2017-01-30] MEDS: Sodium Chloride 0.9% 10 ML Syringe FLUSH ONE ×2 (18:00→18:59)
[2017-01-30] MEDS: Dextrose 5%-Lactated Ringers 1,000 ML IV SCH (20:43)
[2017-01-30] MEDS ORDERED: Naloxone 0.4 MG/ML SDV IVPUSH PRN (20:45)
[2017-01-30] MEDS ORDERED: HYDROmorphone/Normal Saline 15 MG/30 ML PCA IV PRN (20:45)
[2017-01-30] MEDS: Meropenem 500 MG in Sodium Chloride 0.9% 50 ML IV SCH (20:54)
[2017-01-30] MEDS ORDERED: Scopolamine 1.5 MG Transdermal Patch TRDERM PRN (21:25)
[2017-01-30] MEDS: Metoclopramide 10 MG/2 ML SDV IVPUSH SCH (21:41)
[2017-01-31] MEDS: Albuterol/Ipratropium 3.0-0.5 MG/3 ML Neb Soln NEB PRN ×3 (01:34→20:01)
[2017-01-31] MEDS: Ondansetron 4 MG/2 ML SDV IVPUSH PRN ×3 (01:56→12:41)
[2017-01-31] MEDS ORDERED: LORazepam 2 MG/ML MDV IVPUSH PRN (02:18)
[2017-01-31] MEDS: Meropenem 500 MG in Sodium Chloride 0.9% 50 ML IV SCH ×5 (02:28→21:15)
[2017-01-31] MEDS: Metoclopramide 10 MG/2 ML SDV IVPUSH SCH ×4 (02:30→21:15)
[2017-01-31] MEDS: Dextrose 5%-Lactated Ringers 1,000 ML IV SCH ×2 (04:05→11:19)
[2017-01-31] MEDS ORDERED: Levalbuterol Tartrate HFA 15 GM Inhaler INH PRN (07:25)
[2017-01-31] MEDS ORDERED: Acetaminophen 160 MG Tab,Disintegrating PO PRN (07:25)
[2017-01-31] MEDS ORDERED: Fluticasone Propionate Nasal Spray 16 GM Bottle NASBOTH PRN (07:25)
[2017-01-31] MEDS ORDERED: ALPRAZolam 0.5 MG Tab PO PRN (07:25)
[2017-01-31] MEDS ORDERED: Albuterol/Ipratropium 3.0-0.5 MG/3 ML Neb Soln INH PRN (07:25)
[2017-01-31] MEDS ORDERED: Levalbuterol HCl 1.25 MG/3 ML Neb NEB PRN (07:25)
--- NOTE | 2017-01-31 08:18 | PCM.HP ---
H&P History of Present Illness - General Date of Service: 01/31/17 Admit Problem/Dx: Admission Diagnosis/Problem Admission Diagnosis/Problem Abdominal pain Source of Information: Patient History Limitations: Reports: No limitations - History of Present Illness Initial Comments - Free Text/Narative: Shamika states she had and EGD with Dilation yesterday and after she went home she developed mid epigastric abdominal pain. She called the clinic and was advised to go to the ED Location: Reports: abdomen Quality: Reports: Dull, Pressure Severity: mild Improves with: Reports: None Worsens with: Reports: None Epigastric Pain Score (Numeric/FACES): 6 - Related Data Allergies/Adverse Reactions: Allergies Allergy/AdvReac Type Severity Reaction Status Date / Time banana Allergy Severe Swollen Verified 01/30/17 16:26 Tongue walnut Allergy Intermediate Swollen Verified 01/30/17 16:26 Tongue latex Allergy Cannot Verified 01/30/17 16:26 Remember mold Allergy Wheezing Verified 01/30/17 16:26 morphine Allergy Hives Verified 01/30/17 16:26 pollen extracts Allergy Wheezing Verified 01/30/17 16:26 DUST Allergy Unknown Wheezing Uncoded 01/30/17 16:26 SMOKE AdvReac Intermediate Bronchospas Uncoded 01/30/17 16:26 ms Home Medications: Home Meds DULoxetine [Cymbalta] 60 mg PO BID 06/29/13 [History] Cetirizine [ZyrTEC] 10 mg PO DAILY 01/02/14 [History] Montelukast [Singulair] 10 mg PO DAILY #30 tab 01/10/14 [Rx] Albuterol/Ipratropium [DuoNeb 3.0-0.5 MG/3 ML] 3 ml INH Q4H PRN 12/07/15 [ History] Fluticasone Propionate [Flonase] 2 spray NASBOTH DAILY PRN 12/07/15 [History] ALPRAZolam [Alprazolam] 1 mg PO TID PRN 07/10/16 [History] ClonazePAM [KlonoPIN] 1 mg PO BEDTIME 07/10/16 [History] Ondansetron [Zofran ODT] 4 mg PO Q4H PRN 07/10/16 [History] Bariatric Meltaway Vitamin 1 tab PO DAILY 11/09/16 [History] Budesonide/Formoterol Fumarate [Symbicort 160-4.5 Mcg Inhaler] 2 puff IH BID [History] Cyanocobalamin (Vitamin B-12) [Vitamin B-12] 500 mcg SL DAILY 11/09/16 [History] Fluticasone/Vilanterol [Breo Ellipta 200-25 Mcg INH] 1 each IH DAILY 11/09/16 [ History] Lactobacillus Acidophilus [Probiotic] 1 each PO DAILY 11/09/16 [History] Levalbuterol Tartrate [Xopenex HFA] 2 puff INH Q4H PRN 11/09/16 [History] Omeprazole Magnesium [Prilosec Otc] 40 mg PO BID 11/09/16 [History] Scopolamine [Transderm-Scop] 1.5 mg TOP Q3D PRN 11/14/16 [History] Levalbuterol HCl [Xopenex] 1.25 mg NEB Q6H PRN 11/30/16 [History] Acetaminophen [Tylenol Jr. Meltaways] 640 mg PO Q4H PRN #0 tab.dis 12/13/16 [Rx] Bisacodyl [Dulcolax] 15 mg PO BID #100 tablet 12/13/16 [Rx] Celecoxib [CeleBREX] 100 mg PO BID #14 cap 12/13/16 [Rx] Docusate Sodium/Sennosides [Senna Plus] 2 tab PO BID #100 tablet 12/13/16 [Rx] Sucralfate [Carafate] 1 gm PO TIDAC 12/19/16 [History] Prochlorperazine [Compazine] 5 mg PO Q6H PRN 12/26/16 [History] Past Medical History HEENT History: Reports: Sinusitis, Other (see below) Other HEENT History: TMJ. soften Palate Cardiovascular History: Reports: Heart murmur, Other (see below) Other Cardiovascular History: Mitral Valve Regurgitation. Left heart faliure "stiff" Respiratory History: Reports: Asthma, Bronchitis, recurrent, COPD, Intubation, previous, Pneumonia, recurrent, Sleep apnea, SOB, Other (see below) Other Respiratory History: polyp on laynex; intubated x2 after "quit breathing" . c-pap Gastrointestinal History: Reports: Bowel obstruction, Cholelithiasis, Chronic constipation, GERD Genitourinary History: Reports: Urinary incontinence FORGER HELPER History: Reports: Polycystic Ovaries, Musculoskeletal History: Reports: Back pain, chronic, Fracture, Fibromyalgia, Other (see below) Other Musculoskeletal History: knee/ankle pain bilateral Neurological History: Reports: Concussion, Headaches, chronic, Migraines, Seizure, Vertigo Psychiatric History: Reports: Anxiety, Depression, Eating disorders, Mood swings , Panic attack Endocrine/Metabolic History: Reports: Obesity/BMI 30+, Vitamin D deficiency, Other (see below) Other Endocrine/Metabolic History: prediabetic/adrenal gland deficiency Hematologic History: Reports: Anemia, B12 deficiency, Folic acid Immunologic History: Reports: Other (see below) Other Immunologic History: due to steriod use for medical reasons, "they" feel her immune system is compromised Oncologic (Cancer) History: Reports: None Dermatologic History: Reports: Cellulitis, Other (see below) Other Dermatologic History: biopsy of face for moles - Infectious Disease History Infectious Disease History: Reports: Chicken pox, Shingles Other Infectious Disease History: Viral meningitis - Past Surgical History HEENT Surgical History: Reports: LASIK, Oral surgery Cardiovascular Surgical History: Reports: Other (see below) Other Cardiovascular Surgeries/Procedures: angiogram GI Surgical History: Reports: Cholecystectomy, EGD, Esophageal dilatation, Hernia repair/other, Nigel fundoplication, Other (see below) Other GI Surgeries/Procedures: gastrectomy; gastric tumor removed; enlarged liver-has had biopsy Female Surgical History: Reports: section, Tubal ligation Social & Family History - Family History Family Medical History: Noncontributory Cardiac: Reports: Pacemaker Respiratory: Reports: Asthma, COPD, Other (see below) Other Respiratory Family Hisory: bronchitis GI: Reports: Irritable bowel syndrome OBGYN: Reports: Musculoskeletal: Reports: Arthritis Neurological: Reports: Cerebral aneurysms Psychiatric: Reports: Anxiety, Depression Endocrine/Metabolic: Reports: Diabetes, type II, Hypothyroidism, Obesity/MBI 30+ , Vitamin D deficiency Hematologic: Reports: B12 deficiency Immunologic: Reports: None Oncologic: Reports: Brain, Lung, Skin - Tobacco Use Smoking Status *Q: Never Smoker Second Hand Smoke Exposure: No - Caffeine Use Caffeine Use: Reports: Coffee Other Caffeine Use: 2 cups coffee per day and 1-2 sodas - Alcohol Use Days Per Week of Alcohol Use: 0 - Recreational Drug Use Recreational Drug Use: No - Living Situation & Occupation Living situation: Reports: , with family (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 , lives in [place] with and 3 children) Occupation: employed H&P Review of Systems - Review of Systems: Review Of Systems: See Below General: Reports: no symptoms HEENT: Reports: no symptoms Pulmonary: Reports: No Symptoms Cardiovascular: Reports: no symptoms Gastrointestinal: Reports: Abdominal pain (mid epigastric abdominal pain improved) Genitourinary: Reports: no symptoms Musculoskeletal: Reports: no symptoms Skin: Reports: no symptoms Psychiatric: Reports: no symptoms Neurological: Reports: No Symptoms Hematologic/Lymphatic: Reports: no symptoms Immunologic: Reports: no symptoms Exam - Exam Exam: See Below - Vital Signs Vital Signs: Last Vital Signs Temp 96.5 F 01/31/17 02:44 Pulse 68 01/31/17 07:59 Resp 18 01/31/17 02:44 BP 131/73 01/31/17 02:44 Pulse Ox 100 01/31/17 07:59 Weight: 272 lb 8 oz - Exam Quality Assessment: DVT prophylaxis General: alert, oriented, cooperative HEENT: PERRLA Neck: supple, trachea midline Lungs: Clear to auscultation, Normal respiratory effort Cardiovascular: regular rate, regular rhythm Abdomen: Soft (minimally tender in the mid abdominal quadrant) (Female) Exam: Deferred Rectal (Female) Exam: Deferred Back Exam: normal inspection Extremities: normal inspection Skin: warm, dry, intact Neurological: cranial nerves intact Neuro Extensive - Mental Status: alert, oriented x3, normal mood/affect Neuro Extensive - Motor, Sensory, Reflexes: CN II-XII intact Psychiatric: alert, normal affect, normal mood - Patient Data Lab Results last 24 hrs: Laboratory Results - last 24 hr 01/31/17 01/31/17 Range/Units 04:25 04:25 WBC 5.1 (4.5-11.0) K/uL RBC 4.12 (3.30-5.50) M/uL Hgb 11.4 L (12.0-15.0) g/dL Hct 35.9 L (36.0-48.0) % MCV 87 (80-98) fL MCH 28 (27-31) pg MCHC 32 (32-36) % Plt Count 203 (150-400) K/uL Sodium 142 (140-148) mmol/L Potassium 3.5 L (3.6-5.2) mmol/L Chloride 107 (100-108) mmol/L Carbon Dioxide 27 (21-32) mmol/L Anion Gap 11.5 (5.0-14.0) mmol/L BUN 5 L (7-18) mg/dL Creatinine 0.5 L (0.6-1.0) mg/dL Est Cr Clr Drug Dosing 134.58 mL/min Estimated GFR (MDRD) > 60 (>60) Glucose 154 H (74-106) mg/dL Calcium 7.6 L (8.5-10.1) mg/dL Phosphorus 3.5 (2.5-4.9) mg/dL Magnesium 1.5 L (1.8-2.4) mg/dL Total Bilirubin 0.5 D (0.2-1.0) mg/dL AST 497 H D (15-37) U/L ALT 203 H (12-78) U/L Alkaline Phosphatase 177 H D (46-116) U/L Total Protein 5.9 L (6.4-8.2) g/dL Albumin 2.9 L (3.4-5.0) g/dL Globulin 3.0 (2.3-3.5) g/dL Albumin/Globulin Ratio 1.0 L (1.2-2.2) Result Diagrams: 01/31/17 04:25 01/31/17 04:25 *Q Meaningful Use (ADM) - VTE *Q VTE Criteria *Q: - Stroke *Q Stroke Criteria *Q: - AMI *Q AMI Criteria *Q: - Problem List (1) Epigastric pain SNOMED Code(s): 78290769 ICD Code: R10.13 - EPIGASTRIC PAIN Status: Acute Current Visit: Yes (2) Abdominal pain SNOMED Code(s): 94308652 ICD Code: R10.9 - UNSPECIFIED ABDOMINAL PAIN Status: Acute Current Visit : Yes Problem List Initiated/Reviewed/Updated: Yes Orders Last 24hrs: Active Orders 24 hr Category Date Time Status Communication Order [RC] STAT Care 01/30/17 20:45 Active Notify Provider [RC] PRN Care 01/30/17 20:45 Active LITHOGRAPH DESIGNER Record [RC] PER UNIT ROUTINE Care 01/30/17 20:45 Active Pulse Oximetry [RC] CONTINUOUS Care 01/30/17 20:45 Active RT Aerosol Therapy [RC] ASDIRECTED Care 01/31/17 01:19 Active NPO Now [Nothing per Oral Now Diet] [DIET] Diet 01/30/17 Dinner Active Abdomen Pelvis w Cont [CT] Routine Exams 02/01/17 04:00 Ordered CBC W/O DIFF,HEMOGRAM [HEME] Timed Lab 02/01/17 04:00 Ordered COMPREHENSIVE METABOLIC PN,CMP [CHEM] Timed Lab 02/01/17 04:00 Ordered PHOSPHORUS [CHEM] Timed Lab 02/01/17 04:00 Ordered ALPRAZolam [Xanax] Med 01/31/17 07:25 Active 1 mg PO TID PRN Acetaminophen [Tylenol Jr. Meltaways] Med 01/31/17 07:25 Active 640 mg PO Q4H PRN Albuterol/Ipratropium [DuoNeb 3.0-0.5 MG/3 ML] Med 01/31/17 07:25 Active 3 ml INH Q4H PRN Albuterol/Ipratropium [DuoNeb 3.0-0.5 MG/3 ML] Med 01/31/17 01:18 Active 3 ml NEB Q4H PRN Bisacodyl [Dulcolax] Med 01/31/17 09:00 Ordered 15 mg PO BID Budesonide/Formoterol Fumarate [Symbicort 160-4.5 Mcg Med 01/31/17 09:00 Ordered Inhaler] 2 puff IH BID Cetirizine [ZyrTEC] Med 01/31/17 09:00 Ordered 10 mg PO DAILY ClonazePAM [KlonoPIN] Med 01/31/17 21:00 Ordered 1 mg PO BEDTIME DULoxetine [Cymbalta] Med 01/31/17 09:00 Ordered 60 mg PO BID Docusate Sodium/Sennosides [Senna Plus] Med 01/31/17 09:00 Ordered 2 tab PO BID Fluticasone Propionate [Flonase] Med 01/31/17 07:25 Ordered DOSE gm NASBOTH DAILY PRN Fluticasone/Vilanterol [Breo Ellipta 200-25 Mcg INH] Med 01/31/17 09:00 Ordered 1 each IH DAILY HYDROmorphone/Normal Saline [Dilaudid LITHOGRAPH DESIGNER 15 MG in NS Med 01/30/17 20:45 Active 30 ML] See Protocol IV ASDIRECTED PRN Heparin Sodium [Heparin Lock Flush 100 Units/ML Syringe Med 01/31/17 04:26 Active ] 500 units FLUSH ASDIRECTED PRN LORazepam [Ativan] Med 01/31/17 02:18 Active 0.5 - 1 mg IVPUSH Q3H PRN Lactobacillus Acidophilus [Probiotic] Med 01/31/17 09:00 Ordered 1 each PO DAILY Levalbuterol HCl [Xopenex] Med 01/31/17 07:25 Ordered 1.25 mg NEB Q6H PRN Levalbuterol Tartrate [Xopenex HFA] Med 01/31/17 07:25 Ordered DOSE gm INH Q4H PRN Magnesium Sulfate/Water [Magnesium Sulfate 2 GM in Med 01/31/17 07:30 Ordered Water 50 ML] 2 gm Premix Bag 1 bag IV Q6H Metoclopramide [Reglan] Med 01/30/17 21:30 Active 10 mg IVPUSH Q6H Montelukast [Singulair] Med 01/31/17 09:00 Ordered 10 mg PO DAILY Naloxone [Narcan] Med 01/30/17 20:45 Active 0.4 mg IVPUSH Q2M PRN Omeprazole Magnesium [Prilosec Otc] Med 01/31/17 09:00 Ordered 40 mg PO BID Ondansetron [Zofran] Med 01/31/17 01:44 Active 4 mg IVPUSH Q4H PRN Potassium Acetate 20 meq Med 01/31/17 10:00 Active Lidocaine 1% [Xylocaine 1%] 2 ml Sodium Chloride 0.9% [Normal Saline] 100 ml IV Q2H Scopolamine [Transderm-Scop] Med 01/30/17 21:25 Active 1.5 mg TRDERM Q72H PRN Sucralfate [Carafate] Med 01/31/17 07:30 Ordered 1 gm PO TIDAC Medication Discontinuation Instructions [OM.PC] Stat Oth 01/30/17 20:45 Ordered RT Acapella [RESPCARE] Routine Oth 01/31/17 07:28 Active SCD [Sequential Compression Device] [OM.PC] Routine Oth 01/30/17 21:53 Ordered Medication Orders Acetaminophen (Tylenol JrMorro [place]) 640 mg PO Q4H PRN PRN Reason: Pain Albuterol/Ipratropium (Duoneb 3.0-0.5 Mg/3 Ml) 3 ml NEB Q4H PRN PRN Reason: Dyspnea Last Admin: 01/31/17 07:57 Dose: 3 ml Admin: 01/31/17 01:34 Dose: 3 ml Albuterol/Ipratropium (Duoneb 3.0-0.5 Mg/3 Ml) 3 ml INH Q4H PRN PRN Reason: Wheezing Alprazolam (Xanax) 1 mg PO TID PRN PRN Reason: Anxiety Bisacodyl (Dulcolax) 15 mg PO BID ALEX Cetirizine HCl (Zyrtec) 10 mg PO DAILY ALEX Clonazepam (Klonopin) 1 mg PO BEDTIME ALEX Duloxetine HCl (Cymbalta) 60 mg PO BID ALEX Fluticasone Propionate (Flonase) gm NASBOTH DAILY PRN PRN Reason: Allergies Heparin Sodium (Porcine) (Heparin Lock Flush 100 Units/Ml Syringe) 500 units FLUSH ASDIRECTED PRN PRN Reason: IV Use Last Admin: 01/31/17 04:55 Dose: 500 units Hydromorphone HCl (Dilaudid Office Services Manager 15 Mg In Ns 30 Ml) 0 mg IV ASDIRECTED PRN; Protocol PRN Reason: Pain Last Admin: 01/30/17 21:40 Dose: 15 mg Dextrose/Lactated Ringer's (Dextrose 5%-Lactated Ringers) 1,000 mls @ 150 mls/ hr IV ASDIRECTED ALEX Last Admin: 01/31/17 04:05 Dose: 150 mls/hr Infusion: 01/31/17 03:24 Dose: 150 mls/hr Admin: 01/30/17 20:43 Dose: 150 mls/hr Meropenem 500 mg/ Sodium (Chloride) 50 mls @ 100 mls/hr IV Q6H [facility] Last Admin: 01/31/17 02:28 Dose: 100 mls/hr Admin: 01/30/17 20:54 Dose: 100 mls/hr Potassium Acetate 20 meq/Lidocaine HCl 2 ml/ Sodium Chloride 112 mls @ 56 mls/ hr IV Q2H [facility] Stop: 01/31/17 13:59 Magnesium Sulfate 2 gm/ Premix 50 mls @ 25 mls/hr IV Q6H [facility] Stop: 02/03/17 03:29 Levalbuterol HCl (Xopenex) 1.25 mg NEB Q6H PRN PRN Reason: Wheezing Levalbuterol HCl (Xopenex Hfa) gm INH Q4H PRN PRN Reason: Wheezing Lorazepam (Ativan) 0.5 - 1 mg IVPUSH Q3H PRN PRN Reason: Nausea/Vomiting Last Admin: 01/31/17 02:29 Dose: 1 mg Metoclopramide HCl (Reglan) 10 mg IVPUSH Q6H [facility]LEX Last Admin: 01/31/17 02:30 Dose: 10 mg Admin: 01/30/17 21:41 Dose: 10 mg Montelukast Sodium (Singulair) 10 mg PO DAILY ALEX Naloxone HCl (Narcan) 0.4 mg IVPUSH Q2M PRN PRN Reason: Respiratory Distress Non-Formulary Medication (Budesonide/Formoterol Fumarate [Symbicort 160-4.5 Mcg Inhaler]) 2 puff IH BID ALEX Non-Formulary Medication (Fluticasone/Vilanterol [Breo Ellipta 200-25 Mcg Inh]) 1 each IH DAILY ALEX Non-Formulary Medication (Lactobacillus Acidophilus [Probiotic]) 1 each PO DAILY ALEX Non-Formulary Medication (Omeprazole Magnesium [Prilosec Otc]) 40 mg PO BID ALEX Ondansetron HCl (Zofran) 4 mg IVPUSH Q4H PRN PRN Reason: Nausea/Vomiting Last Admin: 01/31/17 07:36 Dose: 4 mg Admin: 01/31/17 01:56 Dose: 4 mg Scopolamine (Transderm-Scop) 1.5 mg TRDERM Q72H PRN PRN Reason: Nausea Last Admin: 01/30/17 21:42 Dose: 1.5 mg Senna/Docusate Sodium (Senna Plus) 2 tab PO BID [facility] Sucralfate (Carafate) 1 gm PO TIDAC [facility]
--- NOTE | 2017-01-31 08:52 | CR ---
Acute abdomen series There is a left subclavian catheter positioned within the SVC. There are no infiltrates or effusions . The heart and vascular structures are within normal limits. There is air underlying the right scooby diaphragm consistent with pneumoperitoneum. There are surgical changes at the epigastrium region con sistent with gastric bypass surgery. There is mild distention of loops of proximal small bowel. Impression: 1. Pneumoperitoneum concerning for bowel perforation. The proximal loops of small bowel appear mildl y distended.
[2017-01-31] MEDS ORDERED: Non-Formulary Medication 1 Each (Fluticasone/Vilanterol [Breo Ellipta 200-25 Mcg Inh] 1 EA IH SCH (09:00)
[2017-01-31] MEDS: Formoterol/Mometasone 200-5 MCG 8.8 GM Inhaler IH SCH ×2 (09:05→21:16)
[2017-01-31] MEDS: Sucralfate Suspension 1 GM/10 ML Cup PO SCH ×3 (09:06→16:49)
[2017-01-31] MEDS: DULoxetine 30 MG Cap PO SCH ×2 (09:43→21:16)
[2017-01-31] MEDS: Pantoprazole 40 MG Tab.CR PO SCH ×2 (09:43→16:49)
[2017-01-31] MEDS: Lactobacillus Rhamnosus GG (Probiotic) Cap PO SCH (09:43)
[2017-01-31] MEDS: Bisacodyl 5 MG Tab PO SCH ×2 (09:43→21:16)
[2017-01-31] MEDS: Cetirizine 10 MG Tab PO SCH (09:44)
[2017-01-31] MEDS: Magnesium Sulfate/Water 2 GM in Premix Bag 1 BAG IV SCH ×3 (09:44→22:20)
[2017-01-31] MEDS: Montelukast 10 MG Tab PO SCH (09:44)
[2017-01-31] MEDS: Potassium Acetate 20 MEQ, Lidocaine 1% 2 ML in Sodium Chloride 0.9% 100 ML IV SCH ×2 (12:17→14:26)
[2017-01-31] MEDS: ClonazePAM 1 MG Tab PO SCH (21:15)
[2017-02-01] MEDS: Dextrose 5%-Lactated Ringers 1,000 ML IV SCH ×3 (02:11→17:24)
[2017-02-01] MEDS ORDERED: Iohexol 647 MG/ML 50 ML SDV PO STA ×2 (03:39)
[2017-02-01] MEDS: Meropenem 500 MG in Sodium Chloride 0.9% 50 ML IV SCH ×4 (03:39→21:21)
[2017-02-01] MEDS: Metoclopramide 10 MG/2 ML SDV IVPUSH SCH ×4 (03:39→21:24)
[2017-02-01] MEDS: Magnesium Sulfate/Water 2 GM in Premix Bag 1 BAG IV SCH ×4 (03:47→21:22)
[2017-02-01] MEDS: Formoterol/Mometasone 200-5 MCG 8.8 GM Inhaler IH SCH ×2 (07:15→21:22)
[2017-02-01] MEDS: Sucralfate Suspension 1 GM/10 ML Cup PO SCH ×3 (07:34→16:59)
[2017-02-01] MEDS: Pantoprazole 40 MG Tab.CR PO SCH ×2 (07:34→16:59)
[2017-02-01] MEDS: Lactobacillus Rhamnosus GG (Probiotic) Cap PO SCH (09:35)
[2017-02-01] MEDS: Cetirizine 10 MG Tab PO SCH (09:35)
[2017-02-01] MEDS: Montelukast 10 MG Tab PO SCH (09:35)
[2017-02-01] MEDS: DULoxetine 30 MG Cap PO SCH ×2 (09:35→21:22)
[2017-02-01] MEDS: Bisacodyl 5 MG Tab PO SCH ×2 (09:35→21:23)
--- NOTE | 2017-02-01 10:26 | PN ---
DATE OF SERVICE: 02/01/2017 SUBJECTIVE: Shamika reports pain, on the pain scale of 1 to 10, a 5/10 after she uses her THERMOPLASTIC TECHNICIAN. Prior to her THERMOPLASTIC TECHNICIAN, it is a 10/10. She states she has been dry heaving all day and all night. The Reglan, Zofran, and scopolamine patch are helping she states "a little bit." She has been n.p.o. CT of abdomen revealed pneumoperitoneum consistent with perforation likely related to esophagojejunostomy, no gross luminal contrast extravasation identified. REVIEW OF SYSTEMS: Remainder of review of systems negative for any pertinent positives or negatives. OBJECTIVE: GENERAL: Shamika Durán is a 41-year-old female. VITAL SIGNS: TPR is 97.3, 81, 12, blood pressure 130/81. HEENT: Negative. NECK: Supple. HEART: Regular rate and rhythm. LUNGS: Clear. ABDOMEN: Soft. Minimal tenderness in the midepigastric area. EXTREMITIES: Without peripheral edema. ASSESSMENT: 1. EGD on 01/29/2017. 2. Perforation at the esophagojejunostomy. 3. Status post partial gastrectomy. PLAN: 1. Start step-1 gastric bypass diet. 2. Check CBC with diff, CMP, mag, and phosphorus in a.m. 3. Good pulmonary toilet encouraged. 4. We will evaluate p.r.n. or in a.m. Shavon Siddiqi PA-C /[id number]
[2017-02-01] MEDS: ClonazePAM 1 MG Tab PO SCH (21:58)
[2017-02-02] MEDS: Dextrose 5%-Lactated Ringers 1,000 ML IV SCH ×3 (00:06→16:39)
[2017-02-02] MEDS: Meropenem 500 MG in Sodium Chloride 0.9% 50 ML IV SCH ×4 (04:06→22:05)
[2017-02-02] MEDS: Metoclopramide 10 MG/2 ML SDV IVPUSH SCH ×4 (04:06→21:35)
[2017-02-02] MEDS: Magnesium Sulfate/Water 2 GM in Premix Bag 1 BAG IV SCH ×4 (04:07→21:35)
[2017-02-02] MEDS: Formoterol/Mometasone 200-5 MCG 8.8 GM Inhaler IH SCH ×2 (07:04→21:30)
[2017-02-02] MEDS: Sucralfate Suspension 1 GM/10 ML Cup PO SCH ×3 (07:30→16:00)
[2017-02-02] MEDS: Pantoprazole 40 MG Tab.CR PO SCH ×2 (07:31→17:18)
[2017-02-02] MEDS ORDERED: MVI, Adult with Vitamin K 10 ML, Thiamine 100 MG, Magnesium Sulfate 2 GM, Folic Acid 1 ... IV ONE ×5 (09:00)
[2017-02-02] MEDS: Celecoxib 100 MG Cap PO SCH ×2 (09:26→21:30)
[2017-02-02] MEDS: Lactobacillus Rhamnosus GG (Probiotic) Cap PO SCH (09:26)
[2017-02-02] MEDS: Cetirizine 10 MG Tab PO SCH (09:27)
[2017-02-02] MEDS: DULoxetine 30 MG Cap PO SCH ×2 (09:27→21:30)
[2017-02-02] MEDS: Montelukast 10 MG Tab PO SCH (09:27)
[2017-02-02] MEDS: Potassium Phosphates 20 MMOLE in Sodium Chloride 0.9% 250 ML IV SCH ×3 (10:35→18:08)
--- NOTE | 2017-02-02 11:47 | PN ---
DATE OF SERVICE: 02/02/2017 SUBJECTIVE: Shamika Durán is a 41-year-old female. She reports her pain on the pain scale of 1 to 10, as a 5 to 9. She has been tolerating a step-1 gastric bypass diet. She reports that she continues to be nauseated all the time and is having persistent dry heaves. Oral intake was 782. Urine output was 400 for the past 24 hours. Her IV is running at 150 mL per hour. Three BMs noted. LABORATORY DATA: WBC 3.2, hemoglobin 10.6, and potassium 3.1. REVIEW OF SYSTEMS: HEENT: Negative for headaches or blurred vision. NECK: Negative. CHEST: No chest pain, shortness of breath, fast or irregular heart beats. LUNGS: No cough. She states she has not been wheezing. ABDOMEN: Continues to report midepigastric pain; on the pain scale of 1 to 10, a 10/10. After she uses her COMPUTER CONSOLE OPERATOR, it is a 5/10. Continues to report nausea and dry heaves she states pretty much constantly. : Negative for UTI signs or symptoms. EXTREMITIES: Without joint pain. SKIN: Without rash. Remainder of review of systems negative for any pertinent positives and negatives. OBJECTIVE: GENERAL: Shamika Durán is a 41-year-old female. She is alert and orientated, smiling and resting comfortably. VITAL SIGNS: TPR is 99, 73, 16, blood pressure 140/71. HEENT: Negative. NECK: Supple. HEART: Regular rate and rhythm. LUNGS: Clear. ABDOMEN: Soft and nontender. EXTREMITIES: Without peripheral edema. NEURO: Intact. SKIN: Without rash. ASSESSMENT: 1. EGD on 01/29/2017. 2. Perforation at the esophagojejunostomy. 3. Status post partial gastrectomy. PLAN: 1. K-Phos 60 mEq IV one time today. 2. Step-2 gastric bypass diet without cereal. 3. Discontinue COMPUTER CONSOLE OPERATOR. 4. Discontinue continuous pulse ox. 5. Celebrex 100 mg p.o. b.i.d. 6. Tylenol 650 mg q.4 hours p.r.n. pain. 7. May shower. 8. Decrease IV to 100 mL per hour. 9. Discontinue Dulcolax tabs. 10.IV 1 L with MultiVites given. 11.Oral intake encouraged. 12.We will evaluate p.r.n. or in a.m. 13.Plan discharge in a.. Shavon Siddiqi PA-C /[id number]
[2017-02-02] MEDS: ClonazePAM 1 MG Tab PO SCH (21:33)
[2017-02-03] MEDS: Magnesium Sulfate/Water 2 GM in Premix Bag 1 BAG IV SCH (03:20)
[2017-02-03] MEDS: Metoclopramide 10 MG/2 ML SDV IVPUSH SCH ×2 (03:20→08:57)
[2017-02-03] MEDS: Meropenem 500 MG in Sodium Chloride 0.9% 50 ML IV SCH (03:30)
[2017-02-03 07:13] VITALS: BP 137/92
[2017-02-03] MEDS: Formoterol/Mometasone 200-5 MCG 8.8 GM Inhaler IH SCH (07:16)
[2017-02-03] MEDS: Sucralfate Suspension 1 GM/10 ML Cup PO SCH (07:20)
[2017-02-03] MEDS: Pantoprazole 40 MG Tab.CR PO SCH (07:20)
[2017-02-03] MEDS: DULoxetine 30 MG Cap PO SCH (08:56)
[2017-02-03] MEDS: Cetirizine 10 MG Tab PO SCH (08:56)
[2017-02-03] MEDS: Celecoxib 100 MG Cap PO SCH (08:56)
[2017-02-03] MEDS: Lactobacillus Rhamnosus GG (Probiotic) Cap PO SCH (08:56)
[2017-02-03] MEDS: Montelukast 10 MG Tab PO SCH (08:56)
--- NOTE | 2017-02-05 14:27 | DISCH ---
FINAL DIAGNOSIS: Perforation of the esophagojejunostomy, status post upper GI endoscopy with dilation. POSTOPERATIVE DIAGNOSES: 1. Morbid obesity. 2. History of asthma. 3. History of anxiety and depression. OPERATIVE PROCEDURE: None. SUMMARY: This is a 41-year-old who earlier in the day on 01/30/17 had an upper GI endoscopy with dilation of the stricture of esophagojejunostomy. She did well in the early postoperative period. She became somewhat more uncomfortable after being discharged home, who re-presented to the emergency room. She had a CT scan, which showed some free air. There is no extravasation of any fluid or any fluid collections around the upper abdomen. There was some edema at the esophagojejunostomy as one would expect. The patient clinically appeared to be stable; therefore, treated nonoperatively. She was started on meropenem, which continued throughout the hospitalization. An upper GI x-ray was obtained on the 2nd day of hospitalization, which showed no extravasation. She has been started on a clear liquid diet, moved up to a full liquid diet presently and she will be discharged home. She will continue present home medications, the antibiotics will be discontinued at this point and she will be maintained with the Celebrex pre-admission for the pain control, and she will follow up with Shavon Siddiqi PA-C at [facility], , 02/08/2017. Jese Grissom MD /[id number]
== END 2017-02-03 10:00 | disposition home or self-care (01) | DRG 254 ==
LOC: JP.ED 16:07 → JP.MS 20:01
PROVIDERS: ADMIT Surgery; ATTEND Physician Assistant Medical
DX: K66.8 Other specified disorders of peritoneum (principal); Z98.84 Bariatric surgery status; Z90.3 Acquired absence of stomach [part of]; J45.909 Unspecified asthma, uncomplicated; K21.9 Gastro-esophageal reflux disease without esophagitis; M19.90 Unspecified osteoarthritis, unspecified site; R07.9 Chest pain, unspecified
CPT/HCPCS: 36415; 74022; 74022-26; 74176; 74177; 80053; 83735; 84100; 85025; 85027; 94640-76; 94664; 94667; 94762; 96361; 96374; 96375; 96376; 99284-25; A9270-GY; J1170; J1642; J2060; J2185; J2405; J2765; J3411; J3475; J3490; J7030; J7040; J7042; J7050; J7120; J7620; Q9967

== ENCOUNTER 2017-02-03 17:43 | Emergency (ER) | payer BC, MEDICAID ==
[2017-02-03] MEDS ORDERED: HYDROmorphone 1 MG/ML Syringe IVPUSH ONE (17:45)
[2017-02-03] MEDS ORDERED: Ondansetron 4 MG/2 ML SDV IVPUSH ONE (17:51)
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
[2017-02-03 18:33] VITALS: BP 148/73
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
== END 2017-02-03 18:46 | disposition home or self-care (01) ==
LOC: JP.ED 17:43
DX: S80.12XA Contusion of left lower leg, initial encounter (principal); J45.909 Unspecified asthma, uncomplicated; J44.9 Chronic obstructive pulmonary disease, unspecified; K21.9 Gastro-esophageal reflux disease without esophagitis; F41.9 Anxiety disorder, unspecified; F32.9 Major depressive disorder, single episode, unspecified; E66.9 Obesity, unspecified; Z68.42 Body mass index [BMI] 45.0-49.9, adult; Z88.8 Allergy status to other drugs, medicaments and biological substances; Z91.040 Latex allergy status; Z91.018 Allergy to other foods; Z79.899 Other long term (current) drug therapy; Z90.49 Acquired absence of other specified parts of digestive tract; Z98.51 Tubal ligation status; Z88.5 Allergy status to narcotic agent; Z86.2 Personal history of diseases of the blood and blood-forming organs and certain disorders involving the immune mechanism; Z87.01 Personal history of pneumonia (recurrent)
CPT/HCPCS: 72170; 73590; 96374; 96375; 99284; J1170; J1642; J2405

== ENCOUNTER 2017-02-06 18:35 | Emergency (ER) | payer BC, MEDICAID ==
[2017-02-06 19:04] VITALS: BP 132/77
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
[2017-02-06] MEDS ORDERED: Sodium Chloride 0.9% 10 ML Syringe FLUSH ONE (20:18)
[2017-02-06] MEDS ORDERED: Iopamidol 612 MG/ML 150 ML Bottle IV SCH (20:30)
[2017-02-06] MEDS ORDERED: Sodium Chloride 0.9% 1,000 ML IV SCH (21:15)
== END 2017-02-06 22:25 | disposition home or self-care (01) ==
LOC: JP.ED 18:35
DX: R10.10 Upper abdominal pain, unspecified (principal); R11.2 Nausea with vomiting, unspecified; J45.909 Unspecified asthma, uncomplicated; J44.9 Chronic obstructive pulmonary disease, unspecified; F41.9 Anxiety disorder, unspecified; F32.9 Major depressive disorder, single episode, unspecified; E66.9 Obesity, unspecified; K21.9 Gastro-esophageal reflux disease without esophagitis; Z68.30 Body mass index [BMI] 30.0-30.9, adult; Z91.018 Allergy to other foods; Z88.8 Allergy status to other drugs, medicaments and biological substances; Z88.5 Allergy status to narcotic agent; Z79.899 Other long term (current) drug therapy; Z90.49 Acquired absence of other specified parts of digestive tract; Z86.2 Personal history of diseases of the blood and blood-forming organs and certain disorders involving the immune mechanism; Z98.51 Tubal ligation status; Z98.890 Other specified postprocedural states; Z91.040 Latex allergy status; Z91.09 Other allergy status, other than to drugs and biological substances
CPT/HCPCS: 74177; 96360; 99283; 99284; J1642; J7030; J7040; J7050

== ENCOUNTER 2017-02-08 08:12 | Day surgery (SDC) | payer BC, MEDICAID ==
[2017-02-08] MEDS ORDERED: Propofol 200 MG/20 ML SDV ONE (08:24)
[2017-02-08] MEDS ORDERED: fentaNYL 100 MCG/2 ML SDV ONE (08:25)
[2017-02-08] MEDS ORDERED: Midazolam 1 MG/ML 2 ML SDV ONE (08:25)
[2017-02-08] MEDS ORDERED: Lactated Ringers 1,000 ML IV SCH (08:45)
[2017-02-08] MEDS ORDERED: Cyanocobalamin (Vitamin B12) 1,000 MCG/ML SDV IM ONE (09:00)
[2017-02-08] MEDS ORDERED: Glycopyrrolate 0.2 MG/ML 2 ML SYRINGE IVPUSH ONE (09:15)
[2017-02-08] MEDS ORDERED: Ondansetron 4 MG/2 ML SDV ONE (09:45)
[2017-02-08] MEDS ORDERED: MVI, Adult with Vitamin K 10 ML, Thiamine 200 MG, Chromium/Copper/Mang/Selen/Zn 1 ML in... IV ONE ×4 (10:00)
[2017-02-08 12:41] VITALS: BP 148/90
--- NOTE | 2017-02-12 19:08 | OR ---
DATE OF PROCEDURE: 02/08/2017 PREOPERATIVE DIAGNOSIS: Possible stricture, gastrojejunostomy. POSTOPERATIVE DIAGNOSIS: Possible stricture, gastrojejunostomy. OPERATIVE PROCEDURE: Upper GI endoscopy with dilation of gastrojejunostomy (63151). ANESTHESIA: IV sedation. 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 She presents with some recurrent symptoms suggestive of stricturing at the gastrojejunostomy. Plan is to proceed with upper GI endoscopy with dilation as indicated. Potential risks including bleeding and perforation were discussed, and the patient wishes to proceed. DETAILS OF PROCEDURE: The patient was taken to the operating room and placed in the left lateral decubitus position. IV sedation was administered after which the upper GI endoscope was passed orally through the length of the esophagus into the proximal gastric pouch. Very mild stricture was present which allowed the 1 cm scope to snugly fit through that anastomosis. Bard gastrointestinal catheter was then centered across the anastomosis and inflated to 45-Spanish. Given the patient's recent perforation, we only went to stage 1 i.e., 30 PSI with this dilation. The dilator was then deflated and the anastomosis examined. No complications were noted and the scope was withdrawn. The patient was taken to the recovery room in satisfactory condition. Jese Grissom MD /[id number]
== END 2017-02-08 14:00 | disposition home or self-care (01) ==
LOC: JP.SDS 08:12
PROVIDERS: ATTEND Surgery
DX: K91.89 Other postprocedural complications and disorders of digestive system (principal); J45.909 Unspecified asthma, uncomplicated; K21.9 Gastro-esophageal reflux disease without esophagitis; F41.8 Other specified anxiety disorders; R56.9 Unspecified convulsions; Z88.8 Allergy status to other drugs, medicaments and biological substances; Z98.890 Other specified postprocedural states
CPT/HCPCS: 43245; J1642; J2250; J2405; J2704; J3010; J3411; J3420; J7120

== ENCOUNTER 2017-02-16 07:23 | Inpatient (IN) | payer BC, MEDICAID ==
[2017-02-16] MEDS ORDERED: Lactated Ringers 1,000 ML IV SCH (07:30)
[2017-02-16] MEDS ORDERED: Glycopyrrolate 0.2 MG/ML 2 ML SYRINGE IVPUSH ONE (07:45)
[2017-02-16] MEDS ORDERED: Cyanocobalamin (Vitamin B12) 1,000 MCG/ML SDV IM ONE (07:45)
[2017-02-16] MEDS ORDERED: methylPREDNISolone Sodium Succinate 125 MG/2 ML SDV IV ONE (07:45)
[2017-02-16] MEDS ORDERED: fentaNYL 100 MCG/2 ML SDV ONE (07:52)
[2017-02-16] MEDS ORDERED: Propofol 200 MG/20 ML SDV ONE (07:52)
[2017-02-16] MEDS ORDERED: Midazolam 1 MG/ML 2 ML SDV ONE (07:52)
[2017-02-16] MEDS ORDERED: MVI, Adult with Vitamin K 10 ML, Thiamine 200 MG, Chromium/Copper/Mang/Selen/Zn 1 ML in... IV ONE ×4 (08:30)
[2017-02-16] MEDS ORDERED: HYDROmorphone 1 MG/ML Syringe IVPUSH ONE (11:14)
[2017-02-16] MEDS ORDERED: Ondansetron 4 MG/2 ML SDV IVPUSH PRN (12:19)
--- NOTE | 2017-02-16 13:44 | CT ---
CT abdomen indication: Post abdominal pain looking for free air.. Total DLP 798. Findings: Atelectasis within the lung bases. Fatty infiltration of the liver. Prior cholecystectomy change. Bilateral adrenal glands are within normal limits. Pancreas within normal limits. Prior chol ecystectomy change. Spleen within normal limits. Tiny focus of free air within the upper abdomen ecc entric to left at postsurgical changes at the gastric pouch. Slight amount of hazy fat stranding. No acute osseous abnormality. Impression: 1. Tiny focus of air indicating free air and perforation at the gastric pouch. Findings called to Dr Morro Grissom.
[2017-02-16] MEDS ORDERED: Naloxone 0.4 MG/ML SDV IV PRN (13:53)
[2017-02-16] MEDS: Dextrose 5%-Lactated Ringers 1,000 ML IV SCH (13:55)
[2017-02-16] MEDS ORDERED: Piperacillin/Tazobactam/Dext 3.375 GM in Premix Bag 1 BAG IV ONE (14:00)
[2017-02-16] MEDS: HYDROmorphone/Normal Saline 15 MG/30 ML PCA IV PRN (14:07)
[2017-02-16] MEDS ORDERED: Scopolamine 1.5 MG Transdermal Patch TRDERM PRN (14:54)
[2017-02-16] MEDS: Metoclopramide 10 MG/2 ML SDV IVPUSH SCH ×2 (16:12→22:18)
[2017-02-16] MEDS: Pantoprazole 40 MG Vial IV SCH (16:12)
[2017-02-16] MEDS: Ondansetron 4 MG/2 ML SDV IVPUSH PRN (17:52)
[2017-02-16] MEDS: Piperacillin/Tazobactam/Dext 3.375 GM in Premix Bag 1 BAG IV SCH (19:43)
[2017-02-16] MEDS: LORazepam 2 MG/ML MDV IVPUSH PRN (20:31)
[2017-02-17] MEDS: Dextrose 5%-Lactated Ringers 1,000 ML IV SCH (00:20)
[2017-02-17] MEDS: Piperacillin/Tazobactam/Dext 3.375 GM in Premix Bag 1 BAG IV SCH ×4 (02:00→19:51)
[2017-02-17] MEDS: Metoclopramide 10 MG/2 ML SDV IVPUSH SCH ×4 (03:40→22:15)
[2017-02-17] MEDS ORDERED: Albuterol/Ipratropium 3.0-0.5 MG/3 ML Neb Soln INH PRN (08:30)
[2017-02-17] MEDS: DULoxetine 30 MG Cap PO SCH ×2 (09:42→20:19)
[2017-02-17] MEDS: Formoterol/Mometasone 200-5 MCG 8.8 GM Inhaler IH SCH ×2 (09:43→20:20)
[2017-02-17] MEDS: Potassium Phosphates 20 MMOLE in Sodium Chloride 0.9% 150 ML IV SCH ×3 (09:48→16:39)
[2017-02-17] MEDS: Magnesium Sulfate/Water 2 GM in Premix Bag 1 BAG IV SCH ×3 (09:53→22:21)
[2017-02-17] MEDS: Ondansetron 4 MG/2 ML SDV IVPUSH PRN (10:45)
[2017-02-17] MEDS: LORazepam 2 MG/ML MDV IVPUSH PRN (11:23)
[2017-02-17] MEDS ORDERED: D5 1/2 NS w/ 40 mEq/L KCl 1,000 ML ONE (13:34)
[2017-02-17] MEDS: methylPREDNISolone Sodium Succinate 125 MG/2 ML SDV IVPUSH SCH (15:37)
[2017-02-17] MEDS: Pantoprazole 40 MG Vial IV SCH (15:42)
[2017-02-17] MEDS: ClonazePAM 1 MG Tab PO SCH (20:19)
[2017-02-17] MEDS: Montelukast 10 MG Tab PO SCH (20:20)
[2017-02-18] MEDS: Dextrose 5%-Lactated Ringers 1,000 ML IV SCH ×3 (00:59→21:20)
[2017-02-18] MEDS: Piperacillin/Tazobactam/Dext 3.375 GM in Premix Bag 1 BAG IV SCH ×4 (02:34→19:55)
[2017-02-18] MEDS: methylPREDNISolone Sodium Succinate 125 MG/2 ML SDV IVPUSH SCH ×2 (04:25→15:37)
[2017-02-18] MEDS: Metoclopramide 10 MG/2 ML SDV IVPUSH SCH ×4 (04:25→21:49)
[2017-02-18] MEDS: Magnesium Sulfate/Water 2 GM in Premix Bag 1 BAG IV SCH ×4 (04:25→21:49)
[2017-02-18] MEDS: Formoterol/Mometasone 200-5 MCG 8.8 GM Inhaler IH SCH ×2 (07:26→21:47)
[2017-02-18] MEDS: Potassium Phosphates 20 MMOLE in Sodium Chloride 0.9% 250 ML IV SCH ×3 (08:52→17:18)
[2017-02-18] MEDS: DULoxetine 30 MG Cap PO SCH ×2 (08:53→21:47)
--- NOTE | 2017-02-18 12:46 | PN ---
DATE OF SERVICE: 02/17/2017 The patient has been afebrile with stable vital signs. Nausea is now controlled with the addition of some Ativan along with scopolamine patch and IV Reglan. Labs showed low potassium with markedly low phosphate. We will supplement that today as well as low magnesium, which will also be supplemented. We will keep her n.p.o. with ice chips sips of water today and get an upper GI x-ray tomorrow. She will be treated with some Solu-Medrol for the poison corine. Jese Grissom MD /[id number]
--- NOTE | 2017-02-18 13:09 | PN ---
DATE OF SERVICE: 02/18/2017 The patient has been afebrile with stable vital signs. She is up and moving and appeared to be fairly comfortable using small amounts of OPTICAL GLASS SAWYER. Upper GI x-ray looked good and no signs of any extravasation and good flow through the gastrojejunostomy. We will plan a step-2 diet with no solids with protein drink supplements. Her potassium and phosphate remain marginally low and we will supplement those today. She may be ready for her discharge home tomorrow. If she is discharged home, she probably would go home on some oral antibiotic or perhaps another week. A good choice in this case might be doxycycline. Jese Grissom MD /[id number]
[2017-02-18] MEDS: Pantoprazole 40 MG Vial IV SCH (15:37)
[2017-02-18] MEDS: HYDROmorphone/Normal Saline 15 MG/30 ML PCA IV PRN (16:31)
[2017-02-18] MEDS: ClonazePAM 1 MG Tab PO SCH (21:46)
[2017-02-18] MEDS: Montelukast 10 MG Tab PO SCH (21:48)
[2017-02-19] MEDS: Piperacillin/Tazobactam/Dext 3.375 GM in Premix Bag 1 BAG IV SCH ×2 (02:54→08:11)
[2017-02-19] MEDS: methylPREDNISolone Sodium Succinate 125 MG/2 ML SDV IVPUSH SCH (02:59)
[2017-02-19] MEDS: Metoclopramide 10 MG/2 ML SDV IVPUSH SCH (03:00)
[2017-02-19] MEDS: Magnesium Sulfate/Water 2 GM in Premix Bag 1 BAG IV SCH (03:08)
[2017-02-19] MEDS: Formoterol/Mometasone 200-5 MCG 8.8 GM Inhaler IH SCH (07:34)
[2017-02-19 08:57] VITALS: BP 172/91
[2017-02-19] MEDS: DULoxetine 30 MG Cap PO SCH (08:57)
--- NOTE | 2017-02-20 08:23 | DISCH ---
ADMISSION DIAGNOSES: 1. Status post esophagogastroduodenoscopy. 2. Microperforation, 02/16/2017. HISTORY: Shamika Durán had an EGD and developed pain shortly after her EGD. She did have a CT scan, which showed a microperforation. She was admitted for nausea, vomiting, and pain control. She also had poison corine on her legs and was given Medrol Dosepak by our primary care doctor, but she has not picked it up yet. HOSPITAL COURSE: Shamika Durán was admitted on 02/17/2017. 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 Her labs showed a low potassium and markedly low phosphate. These were replaced. She did have a CT scan on 02/17/2017, then she had an upper GI on 02/18/2017. She has been doing well. Her pain has been controlled. She has been up ambulating, tolerating a step-2 gastric bypass diet without cereal. She consumed 100% of breakfast, lunch, and dinner. Last bowel movement was 02/18/2017. Oral intake was recorded at 540 and output 750. Per nursing, they are not sure if everything got recorded as she is independent eating, drinking, and urinating. Vital signs otherwise have been stable. TPR is 96.7, 64, 16, blood pressure 133/71. REVIEW OF SYSTEMS: HEENT: Negative for any headaches or dizziness. She has had no fever, chills, night sweats, or fatigue. Eyes are negative. NECK: Supple. Negative for any neck pain. CHEST: No chest pain. LUNGS: Denies any cough, wheezing, or shortness of breath. ABDOMEN: As above. : Negative. EXTREMITIES: Negative for any joint pain or swelling. NEURO: Denies any loss of coordination. SKIN: Has rash on legs from poison corine have improved with IV Solu-Medrol. PSYCHIATRIC: Negative. Remainder of review of systems negative for any pertinent positives and negatives. OBJECTIVE: GENERAL: Shamika Durán is a 41-year-old female. Height is 5 feet 5 inches. Weight is 263 pounds. HEENT: Negative. NECK: Supple. HEART: Regular rate and rhythm. LUNGS: Clear. ABDOMEN: Soft and nontender. EXTREMITIES: Without peripheral edema. NEURO: Intact. PSYCHIATRIC: Negative mood. Affect appropriate, smiling. SKIN: Reveals poison corine rash on lower extremities. DISPOSITION: Discharged to home. CONDITION: Stable and improving. FOLLOWUP APPOINTMENT: With Shavon Siddiqi PA-C, on 02/23/2017 at 10:00 a.m. DISCHARGE MEDICATIONS: New prescriptions: Doxycycline 100 mg oral twice daily, #10 and scopolamine patch 1.5 mg topical every three days. She is to continue her home medications: Alprazolam 1 mg 3 times a day p.r.n. anxiety; Tylenol Kayode Meltaways 640 mg oral q.4 hours; DuoNeb 3 mL every 4 hours p.r.n. wheezing; bariatric Meltaways vitamins 1 tablet daily; Dulcolax 15 mg oral twice daily; Symbicort 160/4.5 mcg inhaler 2 puffs twice daily; Celebrex 100 mg oral twice daily, she currently is not taking that so just take it for any pain she would have; Zyrtec 10 mg oral daily; Klonopin 1 mg oral at bedtime; vitamin B12 500 mcg sublingual daily, she is to increase that to a 1000; Cymbalta 60 mg p.o. daily; senna plus 2 tabs oral twice daily; Flonase 2 sprays each nostril daily; Probiotic one each daily; Xopenex 1.25 mg nebulized inhaled every 6 hours; Xopenex 2 puffs inhaled every 4 hours; Singulair 10 mg oral daily; Prilosec 40 mg twice daily; Zofran ODT 4 mg every 6 hours; Compazine 5 mg oral every 6 hours; Carafate 1 g three times a day before meals. DIET AFTER DISCHARGE: Step-2 gastric bypass diet with no cereal, drink 8 to 10 glasses of water a day. ACTIVITY AFTER DISCHARGE: As tolerated. Walk 8 times daily. Shower bathing, may shower. Notify provider if any increased pain, nausea, vomiting, and to berry picker Medrol Dosepak at pharmacy. The patient declined any Dilaudid to go home with, states she wanted to go home without any narcotic medication.
--- NOTE | 2017-02-20 11:32 | CR ---
Upper GI limited. Findings: No dilated loops of bowel. No gross evidence for contrast leakage.
--- NOTE | 2017-02-23 13:56 | OR ---
DATE OF PROCEDURE: 02/16/2017 PREOPERATIVE DIAGNOSIS: Stricture of esophagojejunostomy. POSTOPERATIVE DIAGNOSIS: Stricture of esophagojejunostomy. PROCEDURE: Upper GI endoscopy with dilation of esophagojejunostomy (03344). ANESTHESIA: IV sedation. INDICATIONS: This 41-year-old is presenting with some dysphagia referable to the recurrent stricturing of the gastrojejunostomy. Plan is to proceed with upper GI endoscopy with dilation as indicated. Potential risks were reviewed, including bleeding and perforation and the patient wishes to proceed. NARRATIVE: The patient was taken to the operating room and placed in a left lateral decubitus position. IV sedation was administered, after which the upper GI endoscope was passed orally through the length of the esophagus and into the area of esophagojejunostomy. This was noted to be mildly strictured with a 1-cm scope not quite being able to be passed through the anastomosis. Because of patient's previous perforation, we opted to be quite conservative with regard to the dilator and this was inflated with 36-Amharic size and held in position for 1 minute. The catheter was deflated and withdrawn and the scope could easily be passed through the anastomosis. No complications were noted. The patient was taken to the recovery room in satisfactory condition. Jese Grissom MD /[id number]
== END 2017-02-19 19:37 | disposition still patient (30) | DRG 220 ==
LOC: JP.MS 07:23 → JP.SDS 07:23 → EDSTATUS 09:45 → JP.MS 14:30 → UNDODISIN 02-19 10:00
PROVIDERS: ADMIT Surgery; ATTEND Surgery
PROC: 0D768ZZ Dilation of Stomach, Via Natural or Artificial Opening Endoscopic (ICD-10-PCS; principal; 2017-02-16)
PROC: 0D7A8ZZ Dilation of Jejunum, Via Natural or Artificial Opening Endoscopic (ICD-10-PCS; principal; 2017-02-16)
DX: K22.2 Esophageal obstruction (principal); R13.10 Dysphagia, unspecified; R10.10 Upper abdominal pain, unspecified; E87.6 Hypokalemia; E83.39 Other disorders of phosphorus metabolism; L23.7 Allergic contact dermatitis due to plants, except food; J44.9 Chronic obstructive pulmonary disease, unspecified; E53.8 Deficiency of other specified B group vitamins; M79.7 Fibromyalgia; G89.29 Other chronic pain; M54.9 Dorsalgia, unspecified; K21.9 Gastro-esophageal reflux disease without esophagitis; Z87.01 Personal history of pneumonia (recurrent); G47.30 Sleep apnea, unspecified; F32.9 Major depressive disorder, single episode, unspecified; F41.9 Anxiety disorder, unspecified; F41.0 Panic disorder [episodic paroxysmal anxiety]; F39 Unspecified mood [affective] disorder; Z91.040 Latex allergy status; Z88.5 Allergy status to narcotic agent; Z91.018 Allergy to other foods; Z91.048 Other nonmedicinal substance allergy status; K56.69 Other intestinal obstruction
CPT/HCPCS: 36415; 74150; 74150-26; 74240; 74240-26; 80048; 80053; 83735; 84100; 85027; 94640-76; 94762; A9270-GY; C9113; J1170; J1642; J2060; J2250; J2405; J2543; J2704; J2765; J2930; J3010; J3411; J3420; J3475; J3490; J7040; J7042; J7050; J7120

== ENCOUNTER 2017-04-28 19:29 | Emergency (ER) | payer BC, MEDICAID ==
[2017-04-28 19:46] VITALS: BP 132/83
[2017-04-28] MEDS ORDERED: Metoclopramide 10 MG/2 ML SDV IVPUSH ONE (20:49)
[2017-04-28] MEDS ORDERED: Sodium Chloride 0.9% 1,000 ML IV SCH (21:00)
--- NOTE | 2017-04-28 21:51 | EDM.PDOC ---
ED HPI GENERAL MEDICAL PROBLEM - General Chief Complaint: Gastrointestinal Problem Stated Complaint: CANT EAT Time Seen by Provider: 04/28/17 20:40 Source of Information: Reports: Patient History Limitations: Reports: No Limitations - History of Present Illness INITIAL COMMENTS - FREE TEXT/NARRATIVE: 41 yo female presents with nausea and vomiting since yesterday. multiple emesis yesterday but 2 today. Nausea. generalized ABD pain. extensive Hx of ABD pain, nausea and gastric bipass. Denies fever, chills, or headache. mid upper abd Pain Score (Numeric/FACES): 5 - Related Data Allergies Allergy/AdvReac Type Severity Reaction Status Date / Time banana Allergy Severe Swollen Verified 04/28/17 20:19 Tongue walnut Allergy Intermediate Swollen Verified 04/28/17 20:19 Tongue latex Allergy Cannot Verified 04/28/17 20:19 Remember mold Allergy Wheezing Verified 04/28/17 20:19 morphine Allergy Hives Verified 04/28/17 20:19 poison corine extract Allergy Rash Verified 04/28/17 20:19 pollen extracts Allergy Wheezing Verified 04/28/17 20:19 DUST Allergy Unknown Wheezing Uncoded 04/28/17 20:19 SMOKE AdvReac Intermediate Bronchospas Uncoded 04/28/17 20:19 ms Home Meds: Home Meds Cetirizine [ZyrTEC] 10 mg PO DAILY 01/02/14 [History] Montelukast [Singulair] 10 mg PO DAILY #30 tab 01/10/14 [Rx] Albuterol/Ipratropium [DuoNeb 3.0-0.5 MG/3 ML] 3 ml INH BID 12/07/15 [History] Fluticasone Propionate [Flonase] 2 spray NASBOTH DAILY PRN 12/07/15 [History] ALPRAZolam [Alprazolam] 1 mg PO TID PRN 07/10/16 [History] ClonazePAM [KlonoPIN] 1 mg PO BEDTIME 07/10/16 [History] Ondansetron [Zofran ODT] 4 mg PO Q4H PRN 07/10/16 [History] Bariatric Meltaway Vitamin 1 tab PO DAILY 11/09/16 [History] Budesonide/Formoterol Fumarate [Symbicort 160-4.5 Mcg Inhaler] 2 puff IH BID [History] Cyanocobalamin (Vitamin B-12) [Vitamin B-12] 500 mcg SL DAILY 11/09/16 [History] Lactobacillus Acidophilus [Probiotic] 1 each PO DAILY 11/09/16 [History] Levalbuterol Tartrate [Xopenex HFA] 2 puff INH Q4H PRN 11/09/16 [History] Levalbuterol HCl [Xopenex] 1.25 mg NEB Q6H PRN 11/30/16 [History] Acetaminophen [Tylenol Jr. Meltaways] 640 mg PO Q4H PRN #0 tab.dis 12/13/16 [Rx] Sucralfate [Carafate] 1 gm PO TIDAC 12/19/16 [History] Prochlorperazine [Compazine] 5 mg PO Q6H PRN 12/26/16 [History] Scopolamine [Transderm-Scop] 1.5 mg TOP Q3D PRN #3 patch 02/19/17 [Rx] Bisacodyl [Dulcolax] 15 mg PO BID PRN 04/28/17 [History] Docusate Sodium/Sennosides [Senna Plus] 2 tab PO BID PRN 04/28/17 [History] Escitalopram Oxalate [Escitalopram Oxalate] 20 mg PO DAILY 04/28/17 [History] Omeprazole 40 mg PO BID 04/28/17 [History] predniSONE [Prednisone] 20 mg PO DAILY 04/28/17 [History] Past Medical History HEENT History: Reports: Sinusitis, Other (See Below) Other HEENT History: TMJ. soften Palate Cardiovascular History: Reports: Heart Murmur, Other (See Below) Other Cardiovascular History: Mitral Valve Regurgitation. Left heart faliure "stiff" Respiratory History: Reports: Asthma, Bronchitis, Recurrent, COPD, Intubation, Previous, Pneumonia, Recurrent, Sleep Apnea, SOB, Other (See Below) Other Respiratory History: polyp on laynex; intubated x2 after "quit breathing" . c-pap Gastrointestinal History: Reports: Bowel Obstruction, Cholelithiasis, Chronic Constipation, GERD Genitourinary History: Reports: Urinary Incontinence SETTLEMENT PROCESSOR History: Reports: Polycystic Ovaries, Musculoskeletal History: Reports: Back Pain, Chronic, Fracture, Fibromyalgia, Other (See Below) Other Musculoskeletal History: knee/ankle pain bilateral Neurological History: Reports: Concussion, Headaches, Chronic, Migraines, Seizure, Vertigo Psychiatric History: Reports: Anxiety, Depression, Eating Disorders, Mood Swings , Panic Attack Endocrine/Metabolic History: Reports: Obesity/BMI 30+, Vitamin D Deficiency, Other (See Below) Other Endocrine/Metabolic History: prediabetic/adrenal gland deficiency Hematologic History: Reports: Anemia, B12 Deficiency, Folic Acid Immunologic History: Reports: Other (See Below) Other Immunologic History: due to steriod use for medical reasons, "they" feel her immune system is compromised Oncologic (Cancer) History: Reports: None Dermatologic History: Reports: Cellulitis, Other (See Below) Other Dermatologic History: biopsy of face for moles - Infectious Disease History Infectious Disease History: Reports: Shingles Other Infectious Disease History: Viral meningitis - Past Surgical History Head Surgeries/Procedures: Reports: None HEENT Surgical History: Reports: LASIK, Oral Surgery Cardiovascular Surgical History: Reports: None Respiratory Surgical History: Reports: None GI Surgical History: Reports: Cholecystectomy, EGD, Esophageal Dilatation, Hernia Repair/Other, Nigel Fundoplication, Other (See Below) Other GI Surgeries/Procedures: full gastroectomy Female Surgical History: Reports: Section, Tubal Ligation Endocrine Surgical History: Reports: None Neurological Surgical History: Reports: None Musculoskeletal Surgical History: Reports: None Oncologic Surgical History: Reports: None Dermatological Surgical History: Reports: Skin Biopsy Social & Family History - Family History Family Medical History: Noncontributory Cardiac: Reports: Pacemaker Respiratory: Reports: Asthma, COPD, Other (See Below) Other Respiratory Family Hisory: bronchitis GI: Reports: Irritable Bowel Syndrome OBGYN: Reports: Musculoskeletal: Reports: Arthritis Neurological: Reports: Cerebral Aneurysms Psychiatric: Reports: Anxiety, Depression Endocrine/Metabolic: Reports: Diabetes, type II, Hypothyroidism, Obesity/MBI 30+ , Vitamin D Deficiency Hematologic: Reports: B12 Deficiency Immunologic: Reports: None Oncologic: Reports: Brain, Lung, Skin - Tobacco Use Smoking Status *Q: Never Smoker Second Hand Smoke Exposure: No - Caffeine Use Caffeine Use: Reports: Coffee Other Caffeine Use: 2 cups coffee per day and 1-2 sodas - Alcohol Use Days Per Week of Alcohol Use: 0 - Recreational Drug Use Recreational Drug Use: No - Living Situation & Occupation Living situation: Reports: , with Family Occupation: Employed ED ROS GENERAL - Review of Systems Review Of Systems: See Below Constitutional: Denies: Fever, Chills Respiratory: Denies: Shortness of Breath, Wheezing Cardiovascular: Denies: Chest Pain GI/Abdominal: Reports: Abdominal Pain, Nausea, Vomiting Skin: Denies: Rash ED EXAM, GI/ABD - Physical Exam Exam: See Below Exam Limited By: No Limitations General Appearance: Alert, WD/WN, No Apparent Distress Neck: Normal Inspection, Supple, Non-Tender, Full Range of Motion. No: Lymphadenopathy (R), Lymphadenopathy (L) Respiratory/Chest: No Respiratory Distress, Lungs Clear, Normal Breath Sounds. No: Crackles, Rhonchi, Wheezing Cardiovascular: Normal Peripheral Pulses, Regular Rate, Rhythm, No Murmur GI/Abdominal Exam: Soft, Tender, Other (generalized pain). No: Rigid Neurological: Alert, Oriented Psychiatric: Normal Affect, Normal Mood Skin Exam: Warm, Dry, Intact. No: Rash Course - Vital Signs Last Recorded V/S: Last Vital Signs Temp 35.4 C 04/28/17 20:34 Pulse 64 04/28/17 20:34 Resp 16 04/28/17 20:34 BP 132/83 04/28/17 20:34 Pulse Ox 99 04/28/17 20:34 - Orders/Labs/Meds Orders: Active Orders 24 hr Category Date Time Status Sodium Chloride 0.9% [Normal Saline] 1,000 ml Med 04/28/17 21:00 Active IV ASDIRECTED Medication Orders Sodium Chloride (Normal Saline) 1,000 mls @ 500 mls/hr IV ASDIRECTED ALEX Last Admin: 04/28/17 21:36 Dose: 500 mls/hr Labs: Laboratory Tests 04/28/17 04/28/17 Range/Units 20:57 20:57 WBC 5.9 (4.5-11.0) K/uL RBC 3.98 (3.30-5.50) M/uL Hgb 11.4 L (12.0-15.0) g/dL Hct 34.2 L (36.0-48.0) % MCV 86 (80-98) fL MCH 29 (27-31) pg MCHC 33 (32-36) % Plt Count 274 (150-400) K/uL Neut % (Auto) 73 H (36-66) % Lymph % (Auto) 22 L (24-44) % [place] % (Auto) 4 (2-6) % Eos % (Auto) 0 L (2-4) % Baso % (Auto) 0 (0-1) % Sodium 141 (140-148) mmol/L Potassium 4.0 (3.6-5.2) mmol/L Chloride 106 (100-108) mmol/L Carbon Dioxide 29 (21-32) mmol/L Anion Gap 6.2 (5.0-14.0) mmol/L BUN 14 D (7-18) mg/dL Creatinine 0.7 (0.6-1.0) mg/dL Est Cr Clr Drug Dosing 98.07 mL/min Estimated GFR (MDRD) > 60 (>60) Glucose 91 (74-106) mg/dL Calcium 8.5 (8.5-10.1) mg/dL Total Bilirubin 0.3 (0.2-1.0) mg/dL AST 22 D (15-37) U/L ALT 35 (12-78) U/L Alkaline Phosphatase 92 (46-116) U/L Total Protein 6.6 (6.4-8.2) g/dL Albumin 3.3 L (3.4-5.0) g/dL Globulin 3.3 (2.3-3.5) g/dL Albumin/Globulin Ratio 1.0 L (1.2-2.2) Meds: Medications Generic Name Dose Route Start Last Admin Trade Name Freq PRN Reason Stop Dose Admin Sodium Chloride 1,000 mls @ 500 mls/hr 04/28/17 21:00 04/28/17 21:36 Normal Saline IV 500 mls/hr ASDIRECTED ALEX Administration Discontinued Medications Generic Name Dose Route Start Last Admin Trade Name Freq PRN Reason Stop Dose Admin Metoclopramide HCl 5 mg 04/28/17 20:49 04/28/17 21:37 Reglan IVPUSH 04/28/17 20:50 5 mg ONETIME ONE Administration - Re-Assessments/Exams Free Text/Narrative Re-Assessment/Exam: 04/28/17 22:59 nausea resolved no emesis while in ER. pt tired and ready to go home. Departure - Departure Time of Disposition: 23:00 Disposition: Home, Self-Care 01 Condition: Good Clinical Impression: Nausea & vomiting Qualifiers: Vomiting type: unspecified Vomiting Intractability: non-intractable Qualified Code(s): R11.2 - Nausea with vomiting, unspecified - Discharge Information Forms: ED Department Discharge Additional Instructions: rest clear liquid diet for next 12 hours advance as tolerated follow-up with primary care if needed - My Orders Last 24 Hours: My Active Orders 04/28/17 21:00 Sodium Chloride 0.9% [Normal Saline] 1,000 ml IV ASDIRECTED - Assessment/Plan Last 24 Hours: My Active Orders 04/28/17 21:00 Sodium Chloride 0.9% [Normal Saline] 1,000 ml IV ASDIRECTED
== END 2017-04-28 23:14 | disposition home or self-care (01) ==
LOC: JP.ED 19:29
DX: R11.2 Nausea with vomiting, unspecified (principal); J45.909 Unspecified asthma, uncomplicated; J44.9 Chronic obstructive pulmonary disease, unspecified; K21.9 Gastro-esophageal reflux disease without esophagitis; F32.9 Major depressive disorder, single episode, unspecified; F41.0 Panic disorder [episodic paroxysmal anxiety]; E66.9 Obesity, unspecified; Z68.38 Body mass index [BMI] 38.0-38.9, adult; Z90.49 Acquired absence of other specified parts of digestive tract; Z98.51 Tubal ligation status; Z98.890 Other specified postprocedural states
CPT/HCPCS: 36415; 80053; 85025; 96361; 96374; 99284; J2765; J7040; 99283

== ENCOUNTER 2017-06-28 20:49 | Emergency (ER) | payer BC, MEDICAID ==
[2017-06-28 22:26] VITALS: BP 125/62
--- NOTE | 2017-06-28 22:59 | EDM.PDOC ---
ED HPI GENERAL MEDICAL PROBLEM - General Chief Complaint: Respiratory Problem Stated Complaint: sob Time Seen by Provider: 06/28/17 22:54 Source of Information: Reports: Patient History Limitations: Reports: No Limitations - History of Present Illness INITIAL COMMENTS - FREE TEXT/NARRATIVE: 41 years old female patient presented with chief complaint of shortness of breath started tonight. Mild dry cough. Denies any fever. Denies any nausea or vomiting. Also complaining of right lower rib pain and upper left chest discomfort also started tonight, aching, worse with movement or activities. Denies any dizziness or diaphoresis. Feeling weak all over. Right Lower Rib Pain Score (Numeric/FACES): 6 Upper Middle Abdomen Pain Score (Numeric/FACES): 6 - Related Data Allergies Allergy/AdvReac Type Severity Reaction Status Date / Time banana Allergy Severe Swollen Verified 06/28/17 22:07 Tongue walnut Allergy Intermediate Swollen Verified 06/28/17 22:07 Tongue latex Allergy Cannot Verified 06/28/17 22:07 Remember mold Allergy Wheezing Verified 06/28/17 22:07 morphine Allergy Hives Verified 06/28/17 22:07 poison corine extract Allergy Rash Verified 06/28/17 22:07 pollen extracts Allergy Wheezing Verified 06/28/17 22:07 DUST Allergy Unknown Wheezing Uncoded 06/28/17 22:07 SMOKE AdvReac Intermediate Bronchospas Uncoded 06/28/17 22:07 ms Home Meds: Home Meds Cetirizine [ZyrTEC] 10 mg PO DAILY 01/02/14 [History] Montelukast [Singulair] 10 mg PO DAILY #30 tab 01/10/14 [Rx] Albuterol/Ipratropium [DuoNeb 3.0-0.5 MG/3 ML] 3 ml INH BID 12/07/15 [History] Fluticasone Propionate [Flonase] 2 spray NASBOTH DAILY PRN 12/07/15 [History] ALPRAZolam [Alprazolam] 1 mg PO TID PRN 07/10/16 [History] ClonazePAM [KlonoPIN] 1 mg PO BEDTIME 07/10/16 [History] Ondansetron [Zofran ODT] 4 mg PO Q4H PRN 07/10/16 [History] Bariatric Meltaway Vitamin 1 tab PO DAILY 11/09/16 [History] Budesonide/Formoterol Fumarate [Symbicort 160-4.5 Mcg Inhaler] 2 puff IH BID [History] Cyanocobalamin (Vitamin B-12) [Vitamin B-12] 500 mcg SL DAILY 11/09/16 [History] Lactobacillus Acidophilus [Probiotic] 1 each PO DAILY 11/09/16 [History] Levalbuterol Tartrate [Xopenex HFA] 2 puff INH Q4H PRN 11/09/16 [History] Levalbuterol HCl [Xopenex] 1.25 mg NEB Q6H PRN 11/30/16 [History] Acetaminophen [Tylenol Jr. Meltaways] 640 mg PO Q4H PRN #0 tab.dis 12/13/16 [Rx] Sucralfate [Carafate] 1 gm PO TIDAC 12/19/16 [History] Prochlorperazine [Compazine] 5 mg PO Q6H PRN 12/26/16 [History] Scopolamine [Transderm-Scop] 1.5 mg TOP Q3D PRN #3 patch 02/19/17 [Rx] Escitalopram Oxalate [Escitalopram Oxalate] 20 mg PO DAILY 04/28/17 [History] Omeprazole 40 mg PO BID 04/28/17 [History] Past Medical History HEENT History: Reports: Sinusitis, Other (See Below) Other HEENT History: TMJ. soften Palate Cardiovascular History: Reports: Heart Murmur, Other (See Below) Other Cardiovascular History: Mitral Valve Regurgitation. Left heart faliure "stiff" Respiratory History: Reports: Asthma, Bronchitis, Recurrent, COPD, Intubation, Previous, Pneumonia, Recurrent, Sleep Apnea, SOB, Other (See Below) Other Respiratory History: polyp on laynex; intubated x2 after "quit breathing" . 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: Polycystic Ovaries, Musculoskeletal History: Reports: Back Pain, Chronic, Fracture, Fibromyalgia, Other (See Below) Other Musculoskeletal History: knee/ankle pain bilateral Neurological History: Reports: Concussion, Headaches, Chronic, Migraines, Seizure, Vertigo Psychiatric History: Reports: Anxiety, Depression, Eating Disorders, Mood Swings , Panic Attack Endocrine/Metabolic History: Reports: Obesity/BMI 30+, Vitamin D Deficiency, Other (See Below) Other Endocrine/Metabolic History: prediabetic/adrenal gland deficiency Hematologic History: Reports: Anemia, B12 Deficiency, Folic Acid Immunologic History: Reports: Other (See Below) Other Immunologic History: due to steriod use for medical reasons, "they" feel her immune system is compromised Oncologic (Cancer) History: Reports: None Dermatologic History: Reports: Cellulitis, Other (See Below) Other Dermatologic History: biopsy of face for moles - Infectious Disease History Infectious Disease History: Reports: Chicken Pox, Shingles Other Infectious Disease History: Viral meningitis - Past Surgical History Head Surgeries/Procedures: Reports: None HEENT Surgical History: Reports: LASIK, Oral Surgery Cardiovascular Surgical History: Reports: None Respiratory Surgical History: Reports: None GI Surgical History: Reports: Cholecystectomy, EGD, Esophageal Dilatation, Hernia Repair/Other, Nigel Fundoplication, Other (See Below) Other GI Surgeries/Procedures: full gastroectomy Female Surgical History: Reports: Section, Tubal Ligation Endocrine Surgical History: Reports: None Neurological Surgical History: Reports: None Musculoskeletal Surgical History: Reports: None Oncologic Surgical History: Reports: None Dermatological Surgical History: Reports: Skin Biopsy Social & Family History - Family History Family Medical History: Noncontributory Cardiac: Reports: Pacemaker Respiratory: Reports: Asthma, COPD, Other (See Below) Other Respiratory Family Hisory: bronchitis GI: Reports: Irritable Bowel Syndrome OBGYN: Reports: Musculoskeletal: Reports: Arthritis Neurological: Reports: Cerebral Aneurysms Psychiatric: Reports: Anxiety, Depression Endocrine/Metabolic: Reports: Diabetes, type II, Hypothyroidism, Obesity/MBI 30+ , Vitamin D Deficiency Hematologic: Reports: B12 Deficiency Immunologic: Reports: None Oncologic: Reports: Brain, Lung, Skin - Tobacco Use Smoking Status *Q: Never Smoker Second Hand Smoke Exposure: No - Caffeine Use Caffeine Use: Reports: Coffee Other Caffeine Use: 2 cups coffee per day and 1-2 sodas - Alcohol Use Days Per Week of Alcohol Use: 0 - Recreational Drug Use Recreational Drug Use: No - Living Situation & Occupation Living situation: Reports: , with Family Occupation: Employed ED ROS GENERAL - Review of Systems Review Of Systems: ROS reveals no pertinent complaints other than HPI. ED EXAM, GENERAL - Physical Exam Exam: See Below Exam Limited By: No Limitations General Appearance: Alert, WD/WN, No Apparent Distress Ears: Hearing Grossly Normal Nose: Normal Inspection, Normal Mucosa, No Blood Throat/Mouth: Normal Inspection, Normal Lips, Normal Teeth, Normal Gums, Normal Oropharynx, Normal Voice, No Airway Compromise Head: Atraumatic, Normocephalic Neck: Normal Inspection, Supple, Non-Tender, Full Range of Motion Respiratory/Chest: No Respiratory Distress, Normal Breath Sounds, No Accessory Muscle Use, Chest Non-Tender, Wheezing, Other (Chest wall tenderness on the right lower rib cage and left upper anterior chest wall). No: Decreased Breath Sounds, Crackles, Rales, Rhonchi, Retractions Cardiovascular: Normal Peripheral Pulses, Regular Rate, Rhythm, No Edema, No Gallop, No JVD, No Murmur, No Rub Extremities: Normal Inspection, Normal Range of Motion, Non-Tender, Normal Capillary Refill, No Pedal Edema Neurological: Alert, Oriented, CN II-XII Intact, Normal Cognition, Normal Gait, Normal Reflexes, No Motor/Sensory Deficits Psychiatric: Normal Affect, Normal Mood Skin Exam: Warm, Dry, Intact, Normal Color, No Rash Course - Vital Signs Last Recorded V/S: Last Vital Signs Temp 36.5 C 06/28/17 22:17 Pulse 85 06/28/17 22:17 Resp 12 06/28/17 22:17 BP 125/62 06/28/17 22:17 Pulse Ox 99 06/28/17 22:17 - Orders/Labs/Meds Orders: Active Orders 24 hr Category Date Time Status EKG Documentation Completion [RC] ASDIRECTED Care 06/28/17 23:01 Active RT Aerosol Therapy [RC] ASDIRECTED Care 06/28/17 23:02 Active Chest 2V [CR] Urgent Exams 06/28/17 22:59 Taken EKG 12 Lead [EK] Urgent Ther 06/28/17 22:59 Ordered Labs: Laboratory Tests 06/28/17 06/28/17 06/28/17 Range/Units 23:10 23:10 23:10 WBC 5.4 (4.5-11.0) K/uL RBC 3.75 (3.30-5.50) M/uL Hgb 10.9 L (12.0-15.0) g/dL Hct 33.3 L (36.0-48.0) % MCV 89 (80-98) fL MCH 29 (27-31) pg MCHC 33 (32-36) % Plt Count 241 (150-400) K/uL Neut % (Auto) 56 (36-66) % Lymph % (Auto) 35 (24-44) % Webster % (Auto) 6 (2-6) % Eos % (Auto) 2 (2-4) % Baso % (Auto) 1 (0-1) % PT 10.7 (9.5-12.0) sec INR 1.00 (0.80-1.20) Sodium 141 (140-148) mmol/L Potassium 3.8 (3.6-5.2) mmol/L Chloride 108 (100-108) mmol/L Carbon Dioxide 29 (21-32) mmol/L Anion Gap 4.3 L (5.0-14.0) mmol/L BUN 8 (7-18) mg/dL Creatinine 0.6 (0.6-1.0) mg/dL Est Cr Clr Drug Dosing 113.75 mL/min Estimated GFR (MDRD) > 60 (>60) Glucose 78 (74-106) mg/dL Calcium 8.2 L (8.5-10.1) mg/dL Total Bilirubin 0.3 (0.2-1.0) mg/dL AST 18 (15-37) U/L ALT 31 (12-78) U/L Alkaline Phosphatase 101 (46-116) U/L Troponin I < 0.017 (0.000-0.056) ng/mL Total Protein 5.9 L (6.4-8.2) g/dL Albumin 3.1 L (3.4-5.0) g/dL Globulin 2.8 (2.3-3.5) g/dL Albumin/Globulin Ratio 1.1 L (1.2-2.2) Lipase 48 L (73-393) U/L Meds: Medications Discontinued Medications Generic Name Dose Route Start Last Admin Trade Name Freq PRN Reason Stop Dose Admin Albuterol/Ipratropium 3 ml 06/28/17 23:02 06/28/17 23:32 Duoneb 3.0-0.5 Mg/3 Ml NEB 06/28/17 23:03 3 ml ONETIME ONE Administration Methylprednisolone Sodium Succinate 125 mg 06/28/17 23:02 06/28/17 23:47 Solu-Medrol IVPUSH 06/28/17 23:03 125 mg ONETIME ONE Administration - Re-Assessments/Exams Free Text/Narrative Re-Assessment/Exam: 06/28/17 23:07 Patient was seen and examined shortly after arrival. Given a DuoNeb and 125 mg IV symptom control. Lab and imaging reviewed with the patient. No significant abnormalities. Symptom markedly improved. This is most likely acute asthma exacerbation. Given prescription 5 day course prednisone burst. Advised to come back if symptoms worsen. Continue her home nebs and inhaler. Close follow-up with her primary doctor. Patient agrees with the plan. Stable for discharge 06/29/17 00:07 Departure - Departure Time of Disposition: 00:09 Disposition: Home, Self-Care 01 Condition: Good Clinical Impression: Exacerbation of asthma - Discharge Information Instructions: Asthma, Adult, Shortness of Breath, [id number] Referrals: Abran Roca Sr, MD [Primary Care Provider] - Forms: ED Department Discharge Additional Instructions: advised to come back if symptoms worsen. Continue her home nebs and inhaler. Close follow-up with her primary doctor. - My Orders Last 24 Hours: My Active Orders 06/28/17 22:59 Chest 2V [CR] Urgent EKG 12 Lead [EK] Urgent 06/28/17 23:01 EKG Documentation Completion [RC] ASDIRECTED 06/28/17 23:02 RT Aerosol Therapy [RC] ASDIRECTED - Assessment/Plan Last 24 Hours: My Active Orders 06/28/17 22:59 Chest 2V [CR] Urgent EKG 12 Lead [EK] Urgent 06/28/17 23:01 EKG Documentation Completion [RC] ASDIRECTED 06/28/17 23:02 RT Aerosol Therapy [RC] ASDIRECTED
[2017-06-28] MEDS ORDERED: methylPREDNISolone Sodium Succinate 125 MG/2 ML SDV IVPUSH ONE (23:02)
[2017-06-28] MEDS ORDERED: Albuterol/Ipratropium 3.0-0.5 MG/3 ML Neb Soln NEB ONE (23:02)
--- NOTE | 2017-06-29 08:58 | CR ---
Chest 2V HISTORY: cough, sob COMPARISON: 12/19/2016 FINDINGS: Lungs appear clear and normally aerated. Cardiomediastinal silhouette is within normal limits. No vas cular redistribution or pleural fluid can be seen. Bony structures and soft tissues are unremarkable. Left subclavian central line has been removed in the interval. IMPRESSION: No acute chest abnormality identified.
== END 2017-06-29 00:38 | disposition home or self-care (01) ==
LOC: JP.ED 20:49
DX: J45.901 Unspecified asthma with (acute) exacerbation (principal); J44.9 Chronic obstructive pulmonary disease, unspecified; G43.909 Migraine, unspecified, not intractable, without status migrainosus; E66.9 Obesity, unspecified; Z79.899 Other long term (current) drug therapy; Z91.018 Allergy to other foods; Z88.5 Allergy status to narcotic agent; Z91.09 Other allergy status, other than to drugs and biological substances; Z91.040 Latex allergy status; Z90.49 Acquired absence of other specified parts of digestive tract; Z98.51 Tubal ligation status; Z98.890 Other specified postprocedural states
CPT/HCPCS: 36415; 71020; 80053; 83690; 84484; 85025; 85610; 93005; 96374; 99285; J2930; J7620; 93010

== ENCOUNTER 2017-10-02 09:45 | Day surgery (SDC) | payer BC, MEDICAID ==
[2017-10-02] MEDS ORDERED: Lactated Ringers 1,000 ML IV ONE (10:00)
[2017-10-02] MEDS ORDERED: fentaNYL 100 MCG/2 ML SDV ONE (10:00)
[2017-10-02] MEDS ORDERED: Midazolam 1 MG/ML 2 ML SDV ONE (10:00)
[2017-10-02] MEDS ORDERED: Propofol 200 MG/20 ML SDV ONE (10:00)
[2017-10-02] MEDS ORDERED: Glycopyrrolate 0.2 MG/ML 2 ML SDV IVPUSH ONE (10:45)
[2017-10-02] MEDS ORDERED: Cyanocobalamin (Vitamin B12) 1,000 MCG/ML SDV IM ONE (11:00)
[2017-10-02] MEDS ORDERED: MVI, Adult with Vitamin K 10 ML, Thiamine 200 MG, Chromium/Copper/Mang/Selen/Zn 1 ML in... IV ONE ×4 (11:00)
[2017-10-02 12:49] VITALS: BP 118/75
[2017-10-02] MEDS ORDERED: Hyoscyamine 0.125 MG Tab.SL SL ONE (12:56)
--- NOTE | 2017-10-06 15:40 | OR ---
DATE OF PROCEDURE: 10/02/2017 PREOPERATIVE DIAGNOSIS: Possible strictured esophagojejunostomy. POSTOPERATIVE DIAGNOSIS: Mild strictured esophagojejunostomy. OPERATIVE PROCEDURE: Upper GI endoscopy with dilation of esophagojejunostomy ([id number].) ANESTHESIA: IV sedation. INDICATIONS FOR PROCEDURE: The patient presents with symptoms suggestive of stricturing at her esophagojejunostomy once again. Plan is to proceed with upper GI endoscopy with dilation as indicated. Potential risks including bleeding and perforation were discussed, and the patient wishes to proceed. DETAILS OF PROCEDURE: The patient was taken to the operating room and placed in a left lateral decubitus position. After IV sedation was administered, the upper GI endoscope was passed orally through the length of the esophagus and from there into the esophagojejunostomy. The scope, which was 1 cm in diameter, was able to fit through the anastomosis, but in a fairly snug fit. The visualized portion of the jejunum was unremarkable. No significant inflammation was noted at the mucosal surfaces during the exam. To make the anastomosis somewhat larger, a Bard gastrointestinal balloon catheter was then centered across the anastomosis and inflated to 45-Maltese. This was held in position for 1 minute, after which the balloon catheter was deflated and withdrawn. Visible increase in diameter of the anastomosis was confirmed and no complications were evident. The scope was then withdrawn and the procedure concluded. The patient was taken to the recovery room in a satisfactory condition. Jese Grissom MD /[id number]
== END 2017-10-02 14:33 | disposition home or self-care (01) ==
LOC: JP.SDS 09:45
PROVIDERS: ATTEND Surgery
DX: K91.89 Other postprocedural complications and disorders of digestive system (principal); F41.9 Anxiety disorder, unspecified; F32.9 Major depressive disorder, single episode, unspecified; J45.909 Unspecified asthma, uncomplicated; K21.9 Gastro-esophageal reflux disease without esophagitis; Z91.09 Other allergy status, other than to drugs and biological substances; Z88.8 Allergy status to other drugs, medicaments and biological substances; Z91.040 Latex allergy status; Z91.018 Allergy to other foods
CPT/HCPCS: 43249; A9270; J2250; J2704; J3010; J3411; J3420; J7120; J3490

== ENCOUNTER 2017-10-21 19:02 | Emergency (ER) | payer BC, MEDICAID ==
[2017-10-21] MEDS ORDERED: Ondansetron 4 MG/2 ML SDV IVPUSH ONE ×2 (20:33→23:51)
--- NOTE | 2017-10-21 20:36 | EDM.PDOC ---
ED HPI GENERAL MEDICAL PROBLEM - General Chief Complaint: Gastrointestinal Problem Stated Complaint: ABODMINAL PAIN, FEVER, NAUSEA,VOMITING Time Seen by Provider: 10/21/17 20:35 Source of Information: Reports: Patient, Family History Limitations: Reports: No Limitations - History of Present Illness INITIAL COMMENTS - FREE TEXT/NARRATIVE: pt arrived with marked vomiting and diarrhea. Her daUGHTER IS HOME WITH THE FLU AND STREPT THROAT. Pt began to have loose stools today which were almost uncontrollable. She also has been vomiting. She has had some abdomanal pain. She states the diarrhea is not bloody. Duration: Hour(s): Location: Reports: Abdomen Associated Symptoms: Reports: Nausea/Vomiting, Other ( diarrhea. ) - Related Data Allergies Allergy/AdvReac Type Severity Reaction Status Date / Time banana Allergy Severe Swollen Verified 10/01/17 16:30 Tongue walnut Allergy Intermediate Swollen Verified 10/01/17 16:30 Tongue latex Allergy Cannot Verified 10/01/17 16:30 Remember mold Allergy Wheezing Verified 10/01/17 16:30 morphine Allergy Hives Verified 10/01/17 16:30 poison corine extract Allergy Rash Verified 10/01/17 16:30 pollen extracts Allergy Wheezing Verified 10/01/17 16:30 DUST Allergy Unknown Wheezing Uncoded 10/01/17 16:30 SMOKE AdvReac Intermediate Bronchospas Uncoded 06/28/17 22:07 ms Home Meds: Home Meds Cetirizine [ZyrTEC] 10 mg PO DAILY 01/02/14 [History] Montelukast [Singulair] 10 mg PO DAILY #30 tab 01/10/14 [Rx] Albuterol/Ipratropium [DuoNeb 3.0-0.5 MG/3 ML] 3 ml INH BID 12/07/15 [History] ClonazePAM [KlonoPIN] 1 mg PO BEDTIME 07/10/16 [History] Ondansetron [Zofran ODT] 4 mg PO Q4H PRN 07/10/16 [History] Budesonide/Formoterol Fumarate [Symbicort 160-4.5 Mcg Inhaler] 2 puff IH BID [History] Cyanocobalamin (Vitamin B-12) [Vitamin B-12] 500 mcg SL DAILY 11/09/16 [History] Lactobacillus Acidophilus [Probiotic] 1 each PO DAILY 11/09/16 [History] Levalbuterol Tartrate [Xopenex HFA] 2 puff INH Q4H PRN 11/09/16 [History] Levalbuterol HCl [Xopenex] 1.25 mg NEB Q6H PRN 11/30/16 [History] Acetaminophen [Tylenol Jr. Meltaways] 640 mg PO Q4H PRN #0 tab.dis 12/13/16 [Rx] Sucralfate [Carafate] 1 gm PO TIDAC 12/19/16 [History] Prochlorperazine [Compazine] 5 mg PO Q6H PRN 12/26/16 [History] Scopolamine [Transderm-Scop] 1.5 mg TOP Q3D PRN #3 patch 02/19/17 [Rx] Escitalopram Oxalate [Escitalopram Oxalate] 20 mg PO DAILY 04/28/17 [History] Omeprazole 40 mg PO TID 04/28/17 [History] ALPRAZolam [Xanax] 1 mg PO TID PRN 10/01/17 [History] Cyanocobalamin (Vitamin B-12) [Vitamin B-12] 1,000 mcg IM .QW 10/01/17 [History] Past Medical History HEENT History: Reports: Sinusitis, Other (See Below) Other HEENT History: TMJ. soften Palate Cardiovascular History: Reports: Heart Murmur, Other (See Below) Other Cardiovascular History: Mitral Valve Regurgitation. Left heart faliure "stiff" Respiratory History: Reports: Asthma, Bronchitis, Recurrent, COPD, Intubation, Previous, Pneumonia, Recurrent, Sleep Apnea, SOB, Other (See Below) Other Respiratory History: polyp on laynex; intubated x2 after "quit breathing" . c-pap Gastrointestinal History: Reports: Bowel Obstruction, Cholelithiasis, Chronic Constipation, GERD Genitourinary History: Reports: Urinary Incontinence PLATFORM MAN History: Reports: Polycystic Ovaries, Musculoskeletal History: Reports: Back Pain, Chronic, Fracture, Fibromyalgia, Other (See Below) Other Musculoskeletal History: knee/ankle pain bilateral Neurological History: Reports: Concussion, Headaches, Chronic, Migraines, Seizure, Vertigo Psychiatric History: Reports: Anxiety, Depression, Eating Disorders, Mood Swings , Panic Attack Endocrine/Metabolic History: Reports: Obesity/BMI 30+, Vitamin D Deficiency, Other (See Below) Other Endocrine/Metabolic History: prediabetic/adrenal gland deficiency Hematologic History: Reports: Anemia, B12 Deficiency, Folic Acid Immunologic History: Reports: Other (See Below) Other Immunologic History: due to steriod use for medical reasons, "they" feel her immune system is compromised Oncologic (Cancer) History: Reports: None Dermatologic History: Reports: Cellulitis, Other (See Below) Other Dermatologic History: biopsy of face for moles - Infectious Disease History Infectious Disease History: Reports: Chicken Pox, Shingles Other Infectious Disease History: Viral meningitis - Past Surgical History Head Surgeries/Procedures: Reports: None HEENT Surgical History: Reports: LASIK, Oral Surgery Cardiovascular Surgical History: Reports: None Respiratory Surgical History: Reports: None GI Surgical History: Reports: Cholecystectomy, EGD, Esophageal Dilatation, Hernia Repair/Other, Nigel Fundoplication, Other (See Below) Other GI Surgeries/Procedures: full gastroectomy Female Surgical History: Reports: Section, Tubal Ligation Endocrine Surgical History: Reports: None Neurological Surgical History: Reports: None Musculoskeletal Surgical History: Reports: None Oncologic Surgical History: Reports: None Dermatological Surgical History: Reports: Skin Biopsy Social & Family History - Family History Family Medical History: Noncontributory Cardiac: Reports: Pacemaker Respiratory: Reports: Asthma, COPD, Other (See Below) Other Respiratory Family Hisory: bronchitis GI: Reports: Irritable Bowel Syndrome OBGYN: Reports: Musculoskeletal: Reports: Arthritis Neurological: Reports: Cerebral Aneurysms Psychiatric: Reports: Anxiety, Depression Endocrine/Metabolic: Reports: Diabetes, type II, Hypothyroidism, Obesity/MBI 30+ , Vitamin D Deficiency Hematologic: Reports: B12 Deficiency Immunologic: Reports: None Oncologic: Reports: Brain, Lung, Skin - Tobacco Use Smoking Status *Q: Never Smoker Second Hand Smoke Exposure: No - Caffeine Use Caffeine Use: Reports: Coffee Other Caffeine Use: 2 cups coffee per day and 1-2 sodas - Alcohol Use Days Per Week of Alcohol Use: 0 - Recreational Drug Use Recreational Drug Use: No - Living Situation & Occupation Living situation: Reports: , with Family Occupation: Employed ED ROS GENERAL - Review of Systems Review Of Systems: See Below Constitutional: Reports: Decreased Appetite HEENT: Reports: No Symptoms Respiratory: Reports: No Symptoms Cardiovascular: Reports: No Symptoms Endocrine: Reports: No Symptoms GI/Abdominal: Reports: Abdominal Pain, Diarrhea, Vomiting : Reports: No Symptoms Musculoskeletal: Reports: No Symptoms Skin: Reports: No Symptoms ED EXAM, GI/ABD - Physical Exam Exam: See Below Text/Narrative:: pt arrived with vomiting and diarrhea and some abdomanal pain. her daughter is home with the flu with similar symptoms. Exam Limited By: No Limitations General Appearance: Alert, Mild Distress Ears: Normal TMs Nose: Normal Inspection Throat/Mouth: Normal Oropharynx Head: Atraumatic Neck: Normal Inspection Respiratory/Chest: No Respiratory Distress Cardiovascular: Regular Rate, Rhythm GI/Abdominal Exam: Soft, Other (mild tenderness) (Female) Exam: Deferred Rectal (Female) Exam: Deferred Back Exam: Normal Inspection Extremities: Normal Inspection Neurological: Alert, Oriented, Normal Cognition Psychiatric: Normal Mood Course - Vital Signs Last Recorded V/S: Last Vital Signs Temp 37.7 C 10/21/17 19:54 Pulse 83 10/21/17 23:13 Resp 16 10/21/17 23:13 BP 130/73 10/21/17 23:13 Pulse Ox 100 10/21/17 23:13 - Orders/Labs/Meds Orders: Active Orders 24 hr Category Date Time Status Abdomen Pelvis w Cont [CT] Stat Exams 10/21/17 23:08 Taken Abdomen Series w Chest 1V [CR] Urgent Exams 10/21/17 20:34 Taken CULTURE STREP A CONFIRMATION [RM] Stat Lab 10/21/17 20:37 Results CULTURE URINE [RM] Stat Lab 10/21/17 22:25 Received STREP SCRN A RAPID W CULT CONF [RM] Stat Lab 10/21/17 20:37 Results Sodium Chloride 0.9% [Normal Saline] 1,000 ml Med 10/21/17 20:45 Active IV ASDIRECTED Sodium Chloride 0.9% [Normal Saline] 1,000 ml Med 10/21/17 22:45 Active IV ASDIRECTED Sodium Chloride 0.9% [Normal Saline] 100 ml Med 10/21/17 23:30 Active IV ASDIRECTED Medication Orders Sodium Chloride (Normal Saline) 1,000 mls @ 999 mls/hr IV ASDIRECTED ALEX Last Admin: 10/21/17 21:17 Dose: 999 mls/hr Sodium Chloride (Normal Saline) 1,000 mls @ 999 mls/hr IV ASDIRECTED ALEX Last Admin: 10/21/17 23:13 Dose: 999 mls/hr Sodium Chloride (Normal Saline) 100 mls @ 3 mls/sec IV ASDIRECTED ALEX Last Admin: 10/21/17 23:35 Dose: 3 mls/sec Labs: Laboratory Tests 10/21/17 10/21/17 10/21/17 Range/Units 20:28 20:28 20:44 WBC 3.5 L (4.5-11.0) K/uL RBC 4.06 (3.30-5.50) M/uL Hgb 12.0 (12.0-15.0) g/dL Hct 35.4 L (36.0-48.0) % MCV 87 (80-98) fL MCH 30 (27-31) pg MCHC 34 (32-36) % Plt Count 192 (150-400) K/uL Neut % (Auto) 76 H (36-66) % Lymph % (Auto) 16 L (24-44) % [place] % (Auto) 7 H (2-6) % Eos % (Auto) 1 L (2-4) % Baso % (Auto) 1 (0-1) % Sodium 139 L (140-148) mmol/L Potassium 3.9 (3.6-5.2) mmol/L Chloride 107 (100-108) mmol/L Carbon Dioxide 24 (21-32) mmol/L Anion Gap 11.9 (5.0-14.0) mmol/L BUN 16 D (7-18) mg/dL Creatinine 0.6 (0.6-1.0) mg/dL Est Cr Clr Drug Dosing 112.15 mL/min Estimated GFR (MDRD) > 60 (>60) Glucose 92 (74-106) mg/dL Calcium 8.0 L (8.5-10.1) mg/dL Total Bilirubin 0.4 (0.2-1.0) mg/dL AST 29 (15-37) U/L ALT 36 (12-78) U/L Alkaline Phosphatase 97 (46-116) U/L C-Reactive Protein (0.0-0.3) mg/dL Total Protein 5.5 L (6.4-8.2) g/dL Albumin 3.0 L (3.4-5.0) g/dL Globulin 2.5 (2.3-3.5) g/dL Albumin/Globulin Ratio 1.2 (1.2-2.2) Urine Color [place] Urine Appearance Cloudy Urine pH 5.0 (4.5-8.0) Ur Specific Vaugh[place] 1.020 (1.008-1.030) Urine Protein Negative (NEGATIVE) mg/dL Urine Glucose (UA) Normal (NEGATIVE) mg/dL Urine Ketones 15 H (NEGATIVE) mg/dL Urine Occult Blood Negative (NEGATIVE) Urine Nitrite Negative (NEGATIVE) Urine Bilirubin Small (NEGATIVE) Urine Urobilinogen 4 (NORMAL) mg/dL Ur Leukocyte Esterase Moderate (NEGATIVE) Urine RBC 0-5 (0-5) Urine WBC 5-10 H (0-5) Ur Epithelial Cells Many Amorphous Sediment Few Urine Bacteria Few Urine Mucus Moderate 10/21/17 Range/Units 23:12 WBC (4.5-11.0) K/uL RBC (3.30-5.50) M/uL Hgb (12.0-15.0) g/dL Hct (36.0-48.0) % MCV (80-98) fL MCH (27-31) pg MCHC (32-36) % Plt Count (150-400) K/uL Neut % (Auto) (36-66) % Lymph % (Auto) (24-44) % Weston % (Auto) (2-6) % Eos % (Auto) (2-4) % Baso % (Auto) (0-1) % Sodium (140-148) mmol/L Potassium (3.6-5.2) mmol/L Chloride (100-108) mmol/L Carbon Dioxide (21-32) mmol/L Anion Gap (5.0-14.0) mmol/L BUN (7-18) mg/dL Creatinine (0.6-1.0) mg/dL Est Cr Clr Drug Dosing mL/min Estimated GFR (MDRD) (>60) Glucose (74-106) mg/dL Calcium (8.5-10.1) mg/dL Total Bilirubin (0.2-1.0) mg/dL AST (15-37) U/L ALT (12-78) U/L Alkaline Phosphatase (46-116) U/L C-Reactive Protein 0.30 (0.0-0.3) mg/dL Total Protein (6.4-8.2) g/dL Albumin (3.4-5.0) g/dL Globulin (2.3-3.5) g/dL Albumin/Globulin Ratio (1.2-2.2) Urine Color Urine Appearance Urine pH (4.5-8.0) Ur Specific Vaughn (1.008-1.030) Urine Protein (NEGATIVE) mg/dL Urine Glucose (UA) (NEGATIVE) mg/dL Urine Ketones (NEGATIVE) mg/dL Urine Occult Blood (NEGATIVE) Urine Nitrite (NEGATIVE) Urine Bilirubin (NEGATIVE) Urine Urobilinogen (NORMAL) mg/dL Ur Leukocyte Esterase (NEGATIVE) Urine RBC (0-5) Urine WBC (0-5) Ur Epithelial Cells Amorphous Sediment Urine Bacteria Urine Mucus Meds: Medications Generic Name Dose Route Start Last Admin Trade Name Freq PRN Reason Stop Dose Admin Sodium Chloride 1,000 mls @ 999 mls/hr 10/21/17 20:45 10/21/17 21:17 Normal Saline IV 999 mls/hr ASDIRECTED ALEX Administration Sodium Chloride 1,000 mls @ 999 mls/hr 10/21/17 22:45 10/21/17 23:13 Normal Saline IV 999 mls/hr ASDIRECTED ALEX Administration Sodium Chloride 100 mls @ 3 mls/sec 10/21/17 23:30 10/21/17 23:35 Normal Saline IV 3 mls/sec ASDIRECTED ALEX Administration Discontinued Medications Generic Name Dose Route Start Last Admin Trade Name Freq PRN Reason Stop Dose Admin Hydromorphone HCl 0.5 mg 10/21/17 20:49 10/21/17 21:17 Dilaudid IVPUSH 10/21/17 20:50 0.5 mg ONETIME ONE Administration Hydromorphone HCl 0.5 mg 10/21/17 23:09 10/21/17 23:40 Dilaudid IVPUSH 10/21/17 23:10 0.5 mg ONETIME ONE Administration Iopamidol 140 ml 10/21/17 23:30 10/21/17 23:34 Isovue-300 (61%) IV 140 ml . DIRECTED ALEX Administration Ondansetron HCl 4 mg 10/21/17 20:33 10/21/17 21:17 Zofran IVPUSH 10/21/17 20:34 4 mg ONETIME ONE Administration Ondansetron HCl 4 mg 10/21/17 23:51 10/21/17 23:57 Zofran IVPUSH 10/21/17 23:52 4 mg ONETIME ONE Administration - Re-Assessments/Exams Free Text/Narrative Re-Assessment/Exam: 10/22/17 00:12 pt was found to have a low wbc. Her chems looked good. She had a low crp. She continued to have pain in the mid to upper abdoman. for tht reason she had a cat scan of the abdoman which was neg. It did look like the flu with alot of fluid in the small bowel. Departure - Departure Time of Disposition: 00:14 Disposition: Home, Self-Care 01 Condition: Fair Clinical Impression: Gastroenteritis, Dehydration - Discharge Information Referrals: Abran Roca Sr, MD [Primary Care Provider] - Forms: ED Department Discharge Care Plan Goals: push fluids-- small amount at a time, use the zoforan which she has at home if needed. norco 5/325 q6h prn for pain. - My Orders Last 24 Hours: My Active Orders 10/21/17 20:34 Abdomen Series w Chest 1V [CR] Urgent 10/21/17 20:37 CULTURE STREP A CONFIRMATION [RM] Stat STREP SCRN A RAPID W CULT CONF [RM] Stat 10/21/17 20:45 Sodium Chloride 0.9% [Normal Saline] 1,000 ml IV ASDIRECTED 10/21/17 22:25 CULTURE URINE [RM] Stat 10/21/17 22:45 Sodium Chloride 0.9% [Normal Saline] 1,000 ml IV ASDIRECTED 10/21/17 23:08 Abdomen Pelvis w Cont [CT] Stat 10/21/17 23:30 Sodium Chloride 0.9% [Normal Saline] 100 ml IV ASDIRECTED - Assessment/Plan Last 24 Hours: My Active Orders 10/21/17 20:34 Abdomen Series w Chest 1V [CR] Urgent 10/21/17 20:37 CULTURE STREP A CONFIRMATION [RM] Stat STREP SCRN A RAPID W CULT CONF [RM] Stat 10/21/17 20:45 Sodium Chloride 0.9% [Normal Saline] 1,000 ml IV ASDIRECTED 10/21/17 22:25 CULTURE URINE [RM] Stat 10/21/17 22:45 Sodium Chloride 0.9% [Normal Saline] 1,000 ml IV ASDIRECTED 10/21/17 23:08 Abdomen Pelvis w Cont [CT] Stat 10/21/17 23:30 Sodium Chloride 0.9% [Normal Saline] 100 ml IV ASDIRECTED
[2017-10-21] MEDS ORDERED: Sodium Chloride 0.9% 1,000 ML IV SCH ×2 (20:45→22:45)
[2017-10-21] MEDS ORDERED: HYDROmorphone 0.5 MG/0.5 ML Syringe IVPUSH ONE ×2 (20:49→23:09)
[2017-10-21 23:14] VITALS: BP 130/73
[2017-10-21] MEDS ORDERED: Iopamidol 612 MG/ML 150 ML Bottle IV SCH (23:30)
[2017-10-21] MEDS ORDERED: Sodium Chloride 0.9% 100 ML IV SCH (23:30)
--- NOTE | 2017-10-22 10:09 | CR ---
Abdomen Series w Chest 1V HISTORY: Pain COMPARISON: CT scan 10/01/2017. FINDINGS: Chest demonstrates cardiac size to be normal. No focal infiltrates or effusions. Postoperative changes in the left abdomen from prior gastric bypass. Surgical clips in the gallbladde r fossa. No bowel obstruction seen no free air seen. Impression: Negative chest and abdomen.
== END 2017-10-22 00:40 | disposition home or self-care (01) ==
LOC: JP.ED 19:02
DX: K52.9 Noninfective gastroenteritis and colitis, unspecified (principal); E86.0 Dehydration; Z91.040 Latex allergy status; Z88.5 Allergy status to narcotic agent; Z91.018 Allergy to other foods; Z79.899 Other long term (current) drug therapy
CPT/HCPCS: 36415; 74022; 74177; 80053; 81001; 85025; 86140; 87081; 87086; 87430; 87804; 99284; J1170; J2405; J7030; J7040

== ENCOUNTER 2017-11-14 15:18 | Inpatient (IN) | payer BC, MEDICAID ==
[2017-11-14] MEDS ORDERED: Sodium Chloride 0.9% 10 ML Syringe FLUSH PRN (15:40)
--- NOTE | 2017-11-14 16:50 | PCM.HP ---
H&P History of Present Illness - General Date of Service: 11/14/17 Admit Problem/Dx: Admission Diagnosis/Problem Admission Diagnosis/Problem Dysphasia Source of Information: Patient History Limitations: Reports: No Limitations - History of Present Illness Initial Comments - Free Text/Narative: Has a long history of Pain when swallowing food including water. Dilations have relieved pain in the past. Pain started after stomach bypass surgery 2016 Has had multiple EGD's with dilations. Pain is severe when swallowing. This afternoon she fainted while standing up as she has had a difficult time taking adequate fluid. She has also had recently pain in the coccyx area for 2 weeks with pain which is severe when sitting and standing from a sitting position. She denies any injury. This pain has been progressive. She has also had a heavy type pain in the chest which lasts for hours that started last night. Onset of Symptoms: Reports: Gradual Duration of Symptoms: Reports: Chronic Location: Reports: Chest Worsens with: Reports: Eating Abdomen Pain Score (Numeric/FACES): 6 - Related Data Allergies/Adverse Reactions: Allergies Allergy/AdvReac Type Severity Reaction Status Date / Time banana Allergy Severe Swollen Verified 11/09/17 13:57 Tongue walnut Allergy Intermediate Swollen Verified 11/09/17 13:57 Tongue latex Allergy Cannot Verified 11/09/17 13:57 Remember mold Allergy Wheezing Verified 11/09/17 13:57 morphine Allergy Hives Verified 11/09/17 13:57 poison corine extract Allergy Rash Verified 11/09/17 13:57 pollen extracts Allergy Wheezing Verified 11/09/17 13:57 DUST Allergy Unknown Wheezing Uncoded 11/09/17 13:57 SMOKE AdvReac Intermediate Bronchospas Uncoded 11/09/17 13:57 ms Home Medications: Home Meds Cetirizine [ZyrTEC] 10 mg PO DAILY 01/02/14 [History] Montelukast [Singulair] 10 mg PO DAILY #30 tab 01/10/14 [Rx] Albuterol/Ipratropium [DuoNeb 3.0-0.5 MG/3 ML] 3 ml INH BID 12/07/15 [History] ClonazePAM [KlonoPIN] 1 mg PO BEDTIME 07/10/16 [History] Ondansetron [Zofran ODT] 4 mg PO Q4H PRN 07/10/16 [History] Budesonide/Formoterol Fumarate [Symbicort 160-4.5 Mcg Inhaler] 2 puff IH BID [History] Cyanocobalamin (Vitamin B-12) [Vitamin B-12] 500 mcg SL DAILY 11/09/16 [History] Lactobacillus Acidophilus [Probiotic] 1 each PO DAILY 11/09/16 [History] Levalbuterol Tartrate [Xopenex HFA] 2 puff INH Q4H PRN 11/09/16 [History] Levalbuterol HCl [Xopenex] 1.25 mg NEB Q6H PRN 11/30/16 [History] Acetaminophen [Tylenol Jr. Meltaways] 640 mg PO Q4H PRN #0 tab.dis 12/13/16 [Rx] Sucralfate [Carafate] 1 gm PO TIDAC 12/19/16 [History] Prochlorperazine [Compazine] 5 mg PO Q6H PRN 12/26/16 [History] Scopolamine [Transderm-Scop] 1.5 mg TOP Q3D PRN #3 patch 02/19/17 [Rx] Escitalopram Oxalate [Escitalopram Oxalate] 20 mg PO DAILY 04/28/17 [History] Omeprazole 40 mg PO TID 04/28/17 [History] ALPRAZolam [Xanax] 1 mg PO TID PRN 10/01/17 [History] Cyanocobalamin (Vitamin B-12) [Vitamin B-12] 1,000 mcg IM .QW 10/01/17 [History] Past Medical History HEENT History: Reports: Sinusitis, Other (See Below) Other HEENT History: TMJ. soften Palate Cardiovascular History: Reports: Heart Murmur, Other (See Below) Other Cardiovascular History: Mitral Valve Regurgitation. Left heart faliure "stiff" Respiratory History: Reports: Asthma, Bronchitis, Recurrent, COPD, Intubation, Previous, Pneumonia, Recurrent, Sleep Apnea, SOB, Other (See Below) Other Respiratory History: polyp on larynx; intubated x2 after "quit breathing" . c-pap Gastrointestinal History: Reports: Bowel Obstruction, Cholelithiasis, Chronic Constipation, GERD Genitourinary History: Reports: Urinary Incontinence [employer]ERT History: Reports: Polycystic Ovaries, Musculoskeletal History: Reports: Back Pain, Chronic, Fracture, Fibromyalgia, Other (See Below) Other Musculoskeletal History: knee/ankle pain bilateral Neurological History: Reports: Concussion, Headaches, Chronic, Migraines, Seizure, Vertigo Psychiatric History: Reports: Anxiety, Depression, Eating Disorders, Mood Swings , Panic Attack Endocrine/Metabolic History: Reports: Obesity/BMI 30+, Vitamin D Deficiency, Other (See Below) Other Endocrine/Metabolic History: prediabetic/adrenal gland deficiency Hematologic History: Reports: Anemia, B12 Deficiency, Folic Acid Immunologic History: Reports: Other (See Below) Other Immunologic History: due to steriod use for medical reasons, "they" feel her immune system is compromised Oncologic (Cancer) History: Reports: None Dermatologic History: Reports: Cellulitis, Other (See Below) Other Dermatologic History: biopsy of face for moles - Infectious Disease History Infectious Disease History: Reports: Chicken Pox, Shingles Other Infectious Disease History: Viral meningitis - Past Surgical History Head Surgeries/Procedures: Reports: None HEENT Surgical History: Reports: LASIK, Oral Surgery Cardiovascular Surgical History: Reports: None Respiratory Surgical History: Reports: None GI Surgical History: Reports: Cholecystectomy, EGD, Esophageal Dilatation, Hernia Repair/Other, Nigel Fundoplication, Other (See Below) Other GI Surgeries/Procedures: full gastroectomy Female Surgical History: Reports: Section, Tubal Ligation Endocrine Surgical History: Reports: None Neurological Surgical History: Reports: None Musculoskeletal Surgical History: Reports: None Oncologic Surgical History: Reports: None Dermatological Surgical History: Reports: Skin Biopsy Social & Family History - Family History Family Medical History: Noncontributory Cardiac: Reports: Pacemaker Respiratory: Reports: Asthma, COPD, Other (See Below) Other Respiratory Family Hisory: bronchitis GI: Reports: Irritable Bowel Syndrome OBGYN: Reports: Musculoskeletal: Reports: Arthritis Neurological: Reports: Cerebral Aneurysms Psychiatric: Reports: Anxiety, Depression Endocrine/Metabolic: Reports: Diabetes, type II, Hypothyroidism, Obesity/MBI 30+ , Vitamin D Deficiency Hematologic: Reports: B12 Deficiency Immunologic: Reports: None Oncologic: Reports: Brain, Lung, Skin - Tobacco Use Smoking Status *Q: Never Smoker Second Hand Smoke Exposure: No - Caffeine Use Caffeine Use: Reports: Coffee Other Caffeine Use: 2 cups coffee per day and 1-2 sodas Caffeine Use Comment: 2-3 cups daily - Alcohol Use Days Per Week of Alcohol Use: 0 - Recreational Drug Use Recreational Drug Use: No - Living Situation & Occupation Living situation: Reports: , with Family Occupation: Employed H&P Review of Systems - Review of Systems: Review Of Systems: See Below General: Reports: Weakness HEENT: Reports: No Symptoms Pulmonary: Reports: No Symptoms Cardiovascular: Reports: Chest Pain, Other (soft stool) Gastrointestinal: Reports: No Symptoms Genitourinary: Reports: No Symptoms Musculoskeletal: Reports: No Symptoms Skin: Reports: No Symptoms Psychiatric: Reports: No Symptoms Neurological: Reports: Dizziness Exam - Exam Exam: See Below - Vital Signs Vital Signs: Last Vital Signs Temp 99.1 F 11/14/17 15:23 Pulse 62 11/14/17 15:23 Resp 16 11/14/17 15:23 BP 134/73 11/14/17 15:23 Pulse Ox 100 11/14/17 15:23 Weight: 200 lb - Exam General: Alert, Oriented, 4 HEENT: PERRLA, Hearing Intact, Mucosa Moist & [place], Nares Patent, Normal Nasal Septum, Posterior Pharynx Clear, Conjunctiva Clear, EOMI, EACs Clear, TMs Clear Neck: Supple, Trachea Midline, 2 Lungs: Clear to Auscultation, Normal Respiratory Effort Cardiovascular: Regular Rate, Regular Rhythm GI/Abdominal Exam: Normal Bowel Sounds, Soft, Non-Tender, No Organomegaly, No Distention, No Abnormal Bruit, No Mass, Pelvis Stable Back Exam: Other (There is significant pain of the coccyx.) Extremities: Normal Inspection, Normal Range of Motion, Non-Tender, No Pedal Edema, Normal Capillary Refill Peripheral Pulses: 1+: Radial (L), Radial (R) Skin: Other (lesion under the left breast appears to be healing.) Neuro Extensive - Mental Status: No: Disorientation to Time - Patient Data Lab Results Last 24 hrs: Laboratory Results - last 24 hr 11/14/17 11/14/17 Range/Units 15:42 15:42 WBC 4.3 L (4.5-11.0) K/uL RBC 3.53 (3.30-5.50) M/uL Hgb 10.2 L (12.0-15.0) g/dL Hct 31.5 L (36.0-48.0) % MCV 89 (80-98) fL MCH 29 (27-31) pg MCHC 32 (32-36) % Plt Count 185 (150-400) K/uL Neut % (Auto) 57 (36-66) % Lymph % (Auto) 35 (24-44) % [place] % (Auto) 6 (2-6) % Eos % (Auto) 2 (2-4) % Baso % (Auto) 1 (0-1) % Sodium 140 (140-148) mmol/L Potassium 3.5 L (3.6-5.2) mmol/L Chloride 108 (100-108) mmol/L Carbon Dioxide 24 (21-32) mmol/L Anion Gap 11.5 (5.0-14.0) mmol/L BUN 13 (7-18) mg/dL Creatinine 0.6 (0.6-1.0) mg/dL Est Cr Clr Drug Dosing 113.27 mL/min Estimated GFR (MDRD) > 60 (>60) Glucose 84 (74-106) mg/dL Calcium 8.1 L (8.5-10.1) mg/dL Total Bilirubin 0.3 (0.2-1.0) mg/dL AST 18 (15-37) U/L ALT 30 (12-78) U/L Alkaline Phosphatase 74 (46-116) U/L Total Protein 5.6 L (6.4-8.2) g/dL Albumin 3.1 L (3.4-5.0) g/dL Globulin 2.5 (2.3-3.5) g/dL Albumin/Globulin Ratio 1.2 (1.2-2.2) Result Diagrams: 11/14/17 15:42 11/14/17 15:42 *Q Meaningful Use (ADM) - VTE *Q VTE Criteria *Q: - Stroke *Q Stroke Criteria *Q: - AMI *Q AMI Criteria *Q: Problem List Initiated/Reviewed/Updated: Yes Orders Last 24hrs: Active Orders 24 hr Category Date Time Status Admission Status [Patient Status] [ADT] Routine ADT 11/14/17 15:32 Active Ambulate [RC] QID Care 11/14/17 15:35 Active Peripheral IV Care [RC] . DIRECTED Care 11/14/17 15:40 Active Verify Patient Consent Obtain [RC] ASDIRECTED Care 11/15/17 09:00 Active Vital Signs [RC] Q4H Care 11/14/17 15:39 Active Bariatric Diet [DIET] Diet 11/14/17 Dinner Active NPO After Midnight [Nothing per Oral After Midnight Diet 11/14/17 Dinner Active Diet] [DIET] Echo Comp wo Cont [US] Routine Exams 11/15/17 12:00 Ordered Dextrose 5%-0.9% NaCl [Dextrose 5%-Normal Saline] 1,000 Med 11/14/17 15:45 Active ml IV ASDIRECTED Sodium Chloride 0.9% [Saline Flush] Med 11/14/17 15:40 Active 10 ml FLUSH ASDIRECTED PRN Peripheral IV Insertion Adult [OM.PC] Routine Oth 11/14/17 15:40 Ordered SCD [Sequential Compression Device] [OM.PC] Routine Oth 11/14/17 15:39 Ordered Code Status [Resuscitation Status] Routine Resus Stat 11/14/17 15:39 Ordered Medication Orders Dextrose/Sodium Chloride (Dextrose 5%-Normal Saline) 1,000 mls @ 125 mls/hr IV ASDIRECTED ALEX Sodium Chloride (Saline Flush) 10 ml FLUSH ASDIRECTED PRN PRN Reason: Keep Vein Open Assessment/Plan Comment:: Assessment/Plan: #1. Dysphasia: Will do a EGD with Possible dilatation in the morning. #2. Coccyx Pain: Will do X-ray and consult Ortho. #3. Atypical chest pain. Not cardiac in origin. #4. History of heart failure will get a Echo of the heart.
[2017-11-14] MEDS: Dextrose 5%-0.9% NaCl 1,000 ML IV SCH (17:53)
[2017-11-15] MEDS: Silver Sulfadiazine 1% Crm 50 GM Tube TOP SCH ×3 (00:50→21:06)
[2017-11-15] MEDS: Dextrose 5%-0.9% NaCl 1,000 ML IV SCH ×3 (01:57→16:23)
[2017-11-15] MEDS ORDERED: fentaNYL 100 MCG/2 ML SDV ONE (07:12)
[2017-11-15] MEDS ORDERED: Midazolam 1 MG/ML 2 ML SDV ONE (07:12)
[2017-11-15] MEDS ORDERED: Propofol 200 MG/20 ML SDV ONE (07:12)
[2017-11-15] MEDS ORDERED: Scopolamine 1.5 MG Transdermal Patch TOP PRN (07:26)
[2017-11-15] MEDS ORDERED: Ondansetron 4 MG Tab.DIS PO PRN (07:27)
[2017-11-15] MEDS ORDERED: Prochlorperazine 10 MG Tab PO PRN (07:27)
[2017-11-15] MEDS ORDERED: Levalbuterol Tartrate HFA 15 GM Inhaler INH PRN (07:29)
[2017-11-15] MEDS ORDERED: Levalbuterol HCl 1.25 MG/3 ML Neb INH PRN (07:30)
[2017-11-15] MEDS ORDERED: ALPRAZolam 0.5 MG Tab PO PRN (07:37)
[2017-11-15] MEDS: Albuterol/Ipratropium 3.0-0.5 MG/3 ML Neb Soln INH SCH ×2 (08:28→21:05)
[2017-11-15] MEDS: Formoterol/Mometasone 200-5 MCG 8.8 GM Inhaler IH SCH ×2 (08:29→21:07)
[2017-11-15] MEDS ORDERED: ESCITALOPRAM 5 MG/5 ML PO SCH (09:00)
[2017-11-15] MEDS: Sucralfate Suspension 1 GM/10 ML Cup PO SCH ×3 (09:19→16:03)
[2017-11-15] MEDS: Pantoprazole 40 MG Delayed-Release Granules 1 Packet PO SCH (09:20)
[2017-11-15] MEDS: Escitalopram 20 MG Tab PO SCH (09:24)
[2017-11-15] MEDS: Lactobacillus Rhamnosus GG (Probiotic) Cap PO SCH (09:24)
[2017-11-15] MEDS: Cyanocobalamin (Vitamin B12) 1,000 MCG Tab SL SCH (09:25)
[2017-11-15] MEDS: Cetirizine 10 MG Tab PO SCH (09:25)
[2017-11-15] MEDS: Acetaminophen 160 MG Tab,Disintegrating PO PRN ×2 (09:26→20:00)
--- NOTE | 2017-11-15 09:55 | CR ---
L-spine The lumbar vertebrae demonstrate normal alignment. There are no compression deformities. The disc spa ramonita are maintained. The sacrum and coccyx appear unremarkable. Impression: 1. Negative exam.
--- NOTE | 2017-11-15 16:54 | PCM.PN ---
- General Info Date of Service: 11/15/17 Subjective Update: Continues to have pain with eating. - Review of Systems General: Reports: Weakness, Fatigue HEENT: Reports: No Symptoms Pulmonary: Reports: No Symptoms Cardiovascular: Reports: No Symptoms Gastrointestinal: Reports: Difficulty Swallowing, Nausea Genitourinary: Reports: No Symptoms Musculoskeletal: Reports: No Symptoms Skin: Reports: No Symptoms Neurological: Reports: No Symptoms - Patient Data Vitals - Most Recent: Last Vital Signs Temp 97.6 F 11/15/17 14:44 Pulse 66 11/15/17 14:44 Resp 16 11/15/17 14:44 BP 120/65 11/15/17 14:44 Pulse Ox 98 11/15/17 14:44 Weight - Most Recent: 199 lb 15.983 oz I&O - Last 24 Hours: Intake & Output 11/15/17 11/15/17 11/15/17 06:59 14:59 22:59 Intake Total 2074 Output Total 750 400 Balance 1324 -400 Med Orders - Current: Current Medications Acetaminophen (Tylenol Jr. Perera) 640 mg PO Q4H PRN PRN Reason: PAIN/FEVER Last Admin: 11/15/17 09:26 Dose: 640 mg Albuterol/Ipratropium (Duoneb 3.0-0.5 Mg/3 Ml) 3 ml INH BIDRT [facility] Last Admin: 11/15/17 08:28 Dose: 3 ml Alprazolam (Xanax) 1 mg PO TID PRN PRN Reason: ANEXITY Last Admin: 11/15/17 09:27 Dose: 1 mg Cetirizine HCl (Zyrtec) 10 mg PO DAILY [facility] Last Admin: 11/15/17 09:25 Dose: 10 mg Clonazepam (Klonopin) 1 mg PO BEDTIME [facility] Cyanocobalamin (Vitamin B12) 1,000 mcg IM Q7D [facility] Cyanocobalamin (Vitamin B12) 500 mcg SL DAILY [facility] Last Admin: 11/15/17 09:25 Dose: 500 mcg Escitalopram Oxalate (Lexapro) 20 mg PO DAILY [facility] Last Admin: 11/15/17 09:24 Dose: 20 mg Dextrose/Sodium Chloride (Dextrose 5%-Normal Saline) 1,000 mls @ 125 mls/hr IV ASDIRECTED [facility] Last Admin: 11/15/17 16:23 Dose: 125 mls/hr Iohexol (Omnipaque) 20 ml PO ONETIME ONE Stop: 11/16/17 06:01 Lactobacillus Rhamnosus (Culturelle) 1 cap PO DAILY [facility] Last Admin: 11/15/17 09:24 Dose: 1 cap Levalbuterol HCl (Xopenex Hfa) 0 gm INH Q4H PRN PRN Reason: Shortness of Breath Levalbuterol HCl (Xopenex) 1.25 mg INH Q6H PRN PRN Reason: Shortness of Breath Mometasone Furoate/Formoterol Fumar (Dulera 200-5 Mcg) 2 puff IH BIDRT [facility] Last Admin: 11/15/17 08:29 Dose: 2 puff Montelukast Sodium (Singulair) 10 mg PO BEDTIME [facility] Ondansetron HCl (Zofran Odt) 4 mg PO Q4H PRN PRN Reason: N/V Pantoprazole Sodium (Protonix Granules) 40 mg PO Q24H [facility] Last Admin: 11/15/17 09:20 Dose: 40 mg Prochlorperazine Maleate (Compazine) 5 mg PO Q6H PRN PRN Reason: NAUSEA Scopolamine (Transderm-Scop) 1.5 mg TOP Q72H PRN PRN Reason: NAUSEA Last Admin: 11/15/17 09:24 Dose: 1.5 mg Silver Sulfadiazine (Silvadene 1% Cream 50 Gm) 1 gm TOP BID [facility] Last Admin: 11/15/17 09:24 Dose: 1 applic Sodium Chloride (Saline Flush) 10 ml FLUSH ASDIRECTED PRN PRN Reason: Keep Vein Open Sucralfate (Carafate) 1 gm PO TIDAC [facility] Last Admin: 11/15/17 16:03 Dose: 1 gm Discontinued Medications Fentanyl (Sublimaze) Confirm Administered Dose 100 mcg .ROUTE .STK-MED ONE Stop: 11/15/17 07:13 Midazolam HCl (Versed 1 Mg/Ml) Confirm Administered Dose 2 mg .ROUTE .STK-MED ONE Stop: 11/15/17 07:13 Propofol (Diprivan 20 Ml) Confirm Administered Dose 200 mg .ROUTE .STK-MED ONE Stop: 11/15/17 07:13 - Exam General: Alert, Oriented, Cooperative, Moderate Distress HEENT: Pupils Equal, Pupils Reactive, EOMI, Mucous Membr. Moist/[place] Neck: Supple Lungs: Clear to Auscultation, Normal Respiratory Effort Cardiovascular: Regular Rate, Regular Rhythm GI/Abdominal Exam: Soft, Guarding Peripheral Pulses: 1+: Radial (L), Radial (R) Skin: Warm, Dry, Intact Neurological: No New Focal Deficit Psy/Mental Status: Alert, Normal Affect, Normal Mood - Problem List Review Problem List Initiated/Reviewed/Updated: Yes - My Orders Last 24 Hours: My Active Orders 11/14/17 21:00 Silver Sulfadiazine [Silvadene 1% Cream 50 GM] 1 gm TOP BID 11/15/17 07:26 Scopolamine [Transderm-Scop] 1.5 mg TOP Q72H PRN 11/15/17 07:27 Ondansetron [Zofran ODT] 4 mg PO Q4H PRN Prochlorperazine [Compazine] 5 mg PO Q6H PRN 11/15/17 07:29 Levalbuterol Tartrate [Xopenex HFA] 0 gm INH Q4H PRN 11/15/17 07:30 Levalbuterol HCl [Xopenex] 1.25 mg INH Q6H PRN Pantoprazole [ProTONIX Granules] 40 mg PO Q24H Sucralfate [Carafate] 1 gm PO TIDAC 11/15/17 07:35 Albuterol/Ipratropium [DuoNeb 3.0-0.5 MG/3 ML] 3 ml INH BIDRT 11/15/17 07:37 ALPRAZolam [Xanax] 1 mg PO TID PRN Acetaminophen [Tylenol Jr. Meltaways] 640 mg PO Q4H PRN 11/15/17 08:00 Mometasone/Formoterol [Dulera 200-5 MCG] 2 puff IH BIDRT 11/15/17 09:00 Cetirizine [ZyrTEC] 10 mg PO DAILY Cyanocobalamin (Vitamin B12) [Vitamin B12] 500 mcg SL DAILY Escitalopram [Lexapro] 20 mg PO DAILY Lactobacillus Rhamnosus GG [Culturelle] 1 cap PO DAILY 11/15/17 11:40 Consult to Physician [CONS] Routine 11/15/17 12:00 Echo Comp wo Cont [US] Routine 11/15/17 21:00 ClonazePAM [KlonoPIN] 1 mg PO BEDTIME Montelukast [Singulair] 10 mg PO BEDTIME 11/15/17 Breakfast Bariatric Diet [DIET] 11/16/17 06:00 Iohexol [Omnipaque] 20 ml PO ONETIME ONE 11/16/17 07:15 Abdomen wo Cont [CT] Routine 11/16/17 Breakfast NPO After Midnight [Nothing per Oral After Midnight Diet] [DIET] 11/19/17 10:00 Cyanocobalamin (Vitamin B12) [Vitamin B12] 1,000 mcg IM Q7D - Plan Plan:: Assessment/Plan: #1. Dysphasia: EGD showed no stricture. CT Tomorrow. #2. Coccyx Pain: X-ray was normal. #4. History of heart failure will get a Echo of the heart. Echo report pending.
[2017-11-15] MEDS: Montelukast 10 MG Tab PO SCH (21:06)
[2017-11-15] MEDS: ClonazePAM 1 MG Tab PO SCH (21:09)
[2017-11-16] MEDS: Dextrose 5%-0.9% NaCl 1,000 ML IV SCH ×3 (00:44→20:39)
[2017-11-16] MEDS ORDERED: Iohexol 300 MG/ML 30 ML Bottle PO ONE ×2 (06:00→07:11)
--- NOTE | 2017-11-16 07:18 | PROC ---
DATE OF PROCEDURE: 11/15/2017 INDICATION: Shamika is a 42-year-old female who has had multiple problems with her stomach. She has been dilated multiple times. She came into the office having significant abdominal pain. She says she can get the food down, but then the pain develops after she eats, to the point where she does not want to eat anymore, even water causes significant pain and discomfort. She said she does not choke on food, but it does hurt when it goes down. She was explained to have esophagogastroduodenoscopy with possible dilatation. The risks and benefits were explained to her. DESCRIPTION OF PROCEDURE: Anesthesia was given by nurse jewelsmith. During the procedure, we used 2 mg of Versed, 100 mcg of fentanyl, and 50 mg of propofol. The Olympus 180 scope was used, was placed into the pharynx and the esophagus without difficulty and advanced under direct vision. We did get into the stomach without difficulty. There was no significant stenotic area in the esophagus. Immediately upon entering the stomach, noted the blind pouch as well as the other opening that goes into the small intestine. No abnormality was noted other than that in the stomach. The tube was retracted and no abnormality was noted in the stomach. The GE junction was identified, and there was no significant stenotic area. The tube was passed easily in and out of the area. There was no significant inflammation noted. The remainder of the esophagus was unremarkable. The tube was removed. The patient tolerated the procedure well. PREOPERATIVE DIAGNOSES: Abdominal pain with eating, dysphagia. POSTOPERATIVE DIAGNOSES: No significant stenotic area identified. Evidence of the recent Vivek-en-Y surgery is found. PLAN: I will order a CT of the abdomen, which will be done tomorrow, and I feel that the possibility is that the food is going down into the blind pouch, and this gets inflated and causes abdominal pain. I will speak with Dr. Jese Girssom, the one who did the surgery for the Vivek-en-Y, but we will get the CT completed first. bAran Roca MD /[id number] MTDWinston
[2017-11-16] MEDS: Albuterol/Ipratropium 3.0-0.5 MG/3 ML Neb Soln INH SCH ×2 (07:51→20:03)
[2017-11-16] MEDS: Sucralfate Suspension 1 GM/10 ML Cup PO SCH ×3 (07:53→17:18)
[2017-11-16] MEDS: Formoterol/Mometasone 200-5 MCG 8.8 GM Inhaler IH SCH ×2 (07:53→20:02)
[2017-11-16] MEDS: Pantoprazole 40 MG Delayed-Release Granules 1 Packet PO SCH (07:53)
[2017-11-16] MEDS: Lactobacillus Rhamnosus GG (Probiotic) Cap PO SCH (09:01)
[2017-11-16] MEDS: Escitalopram 20 MG Tab PO SCH (09:02)
[2017-11-16] MEDS: Cyanocobalamin (Vitamin B12) 1,000 MCG Tab SL SCH (09:02)
[2017-11-16] MEDS: Silver Sulfadiazine 1% Crm 50 GM Tube TOP SCH ×2 (09:03→20:02)
[2017-11-16] MEDS: Cetirizine 10 MG Tab PO SCH (09:03)
--- NOTE | 2017-11-16 09:12 | CT ---
Abdomen CT. History: Dysphagia. Technique: Oral contrast was administered followed by axial imaging from the lung bases extending thr ough the abdomen to the pelvic inlet. Coronal images were reconstructed. Total DLP: 713. Comparison: 13 October 2017. Findings: Limited evaluation of the lung jones demonstrates no acute findings. There is evidence of a small left-sided pericardial cyst which is unchanged. There is diffuse fatty infiltration throughout the liver. There is mild sparing near the gallbladder fossa. The gallbladder surgically absent. The pancreas and adjacent tissues are unremarkable. The spl een is stable. The adrenal glands are normal size. The kidneys demonstrate no hydronephrosis. There are postoperative findings consistent with a Vivek-en-Y gastric bypass. The gastric pouch is non distended. The contrast empties into the nondistended limb. Contrast is demonstrated beyond the jejun ojejunal anastomosis. There is a large amount of retained stool within the visualized colon. There is no free air or free f luid seen. Impression: 1. Prior gastric bypass. There is no evidence for obstruction or complication. 2. Fatty liver. 3. Prior cholecystectomy. 4. Large amount of colonic stool. Correlate for constipation.
--- NOTE | 2017-11-16 16:46 | PCM.PN ---
- General Info Date of Service: 11/16/17 Subjective Update: She had the CT this morning. States she is eating very minimal food or liquids. Pain is severe with eating or drinking. - Review of Systems General: Reports: Weakness HEENT: Reports: No Symptoms Pulmonary: Reports: No Symptoms Cardiovascular: Reports: No Symptoms Gastrointestinal: Reports: Difficulty Swallowing, Other (Pain with swallowing.) Genitourinary: Reports: No Symptoms Musculoskeletal: Reports: Other (Pain in the coccyx area) Skin: Reports: No Symptoms Neurological: Reports: No Symptoms - Patient Data Vitals - Most Recent: Last Vital Signs Temp 100.5 F 11/16/17 15:00 Pulse 68 11/16/17 15:00 Resp 18 11/16/17 15:00 BP 144/65 H 11/16/17 15:00 Pulse Ox 97 11/16/17 15:00 Weight - Most Recent: 199 lb 15.983 oz I&O - Last 24 Hours: Intake & Output 11/16/17 11/16/17 11/16/17 06:59 14:59 22:59 Intake Total 2473 Balance 2473 Med Orders - Current: Current Medications Acetaminophen (Tylenol Jr. Meltawaystan) 640 mg PO Q4H PRN PRN Reason: PAIN/FEVER Last Admin: 11/15/17 20:00 Dose: 640 mg Albuterol/Ipratropium (Duoneb 3.0-0.5 Mg/3 Ml) 3 ml INH BIDRT [facility] Last Admin: 11/16/17 07:51 Dose: 3 ml Alprazolam (Xanax) 1 mg PO TID PRN PRN Reason: ANEXITY Last Admin: 11/15/17 09:27 Dose: 1 mg Cetirizine HCl (Zyrtec) 10 mg PO DAILY [facility] Last Admin: 11/16/17 09:03 Dose: 10 mg Clonazepam (Klonopin) 1 mg PO BEDTIME [facility] Last Admin: 11/15/17 21:09 Dose: 1 mg Cyanocobalamin (Vitamin B12) 1,000 mcg IM Q7D [facility] Cyanocobalamin (Vitamin B12) 500 mcg SL DAILY [facility] Last Admin: 11/16/17 09:02 Dose: 500 mcg Escitalopram Oxalate (Lexapro) 20 mg PO DAILY [facility] Last Admin: 11/16/17 09:02 Dose: 20 mg Dextrose/Sodium Chloride (Dextrose 5%-Normal Saline) 1,000 mls @ 125 mls/hr IV ASDIRECTED [facility] Last Admin: 11/16/17 07:56 Dose: 125 mls/hr Lactobacillus Rhamnosus (Culturelle) 1 cap PO DAILY [facility] Last Admin: 11/16/17 09:01 Dose: 1 cap Levalbuterol HCl (Xopenex Hfa) 0 gm INH Q4H PRN PRN Reason: Shortness of Breath Levalbuterol HCl (Xopenex) 1.25 mg INH Q6H PRN PRN Reason: Shortness of Breath Mometasone Furoate/Formoterol Fumar (Dulera 200-5 Mcg) 2 puff IH BIDRT [facility] Last Admin: 11/16/17 07:53 Dose: 2 puff Montelukast Sodium (Singulair) 10 mg PO BEDTIME [facility] Last Admin: 11/15/17 21:06 Dose: 10 mg Ondansetron HCl (Zofran Odt) 4 mg PO Q4H PRN PRN Reason: N/V Pantoprazole Sodium (Protonix Granules) 40 mg PO Q24H [facility] Last Admin: 11/16/17 07:53 Dose: 40 mg Prochlorperazine Maleate (Compazine) 5 mg PO Q6H PRN PRN Reason: NAUSEA Scopolamine (Transderm-Scop) 1.5 mg TOP Q72H PRN PRN Reason: NAUSEA Last Admin: 11/15/17 09:24 Dose: 1.5 mg Silver Sulfadiazine (Silvadene 1% Cream 50 Gm) 1 gm TOP BID [facility] Last Admin: 11/16/17 09:03 Dose: 1 applic Sodium Chloride (Saline Flush) 10 ml FLUSH ASDIRECTED PRN PRN Reason: Keep Vein Open Sucralfate (Carafate) 1 gm PO TIDAC [facility] Last Admin: 11/16/17 13:57 Dose: 1 gm Discontinued Medications Fentanyl (Sublimaze) Confirm Administered Dose 100 mcg .ROUTE .STK-MED ONE Stop: 11/15/17 07:13 Iohexol (Omnipaque) 20 ml PO ONETIME ONE Stop: 11/16/17 06:01 Last Admin: 11/16/17 05:34 Dose: 20 ml Iohexol (Omnipaque) 20 ml PO ONETIME ONE Stop: 11/16/17 07:12 Last Admin: 11/16/17 07:52 Dose: 20 ml Midazolam HCl (Versed 1 Mg/Ml) Confirm Administered Dose 2 mg .ROUTE .STK-MED ONE Stop: 11/15/17 07:13 Propofol (Diprivan 20 Ml) Confirm Administered Dose 200 mg .ROUTE .STK-MED ONE Stop: 11/15/17 07:13 - Exam General: Oriented, Cooperative, Mild Distress HEENT: Pupils Equal, Pupils Reactive, EOMI, Mucous Membr. Moist/[place] Neck: Supple Lungs: Clear to Auscultation, Normal Respiratory Effort Cardiovascular: Regular Rate, Regular Rhythm GI/Abdominal Exam: Normal Bowel Sounds, Soft Peripheral Pulses: 1+: Radial (L), Radial (R) Skin: Warm, Dry, Intact Neurological: No New Focal Deficit Psy/Mental Status: Normal Affect, Normal Mood, Anxious - Problem List Review Problem List Initiated/Reviewed/Updated: Yes - My Orders Last 24 Hours: My Active Orders 11/15/17 21:00 ClonazePAM [KlonoPIN] 1 mg PO BEDTIME Montelukast [Singulair] 10 mg PO BEDTIME 11/16/17 Breakfast NPO After Midnight [Nothing per Oral After Midnight Diet] [DIET] 11/19/17 10:00 Cyanocobalamin (Vitamin B12) [Vitamin B12] 1,000 mcg IM Q7D - Plan Plan:: Assessment/Plan: #1. Dysphasia: EGD showed no stricture. CT showed no abnormality #2. Coccyx Pain: X-ray was normal. Will observe only. #4. History of heart failure will get a Echo of the heart. Echo report pending. We'll continue to hydrate and planned to discharge home tomorrow.
[2017-11-16] MEDS: ClonazePAM 1 MG Tab PO SCH (20:02)
[2017-11-16] MEDS: Montelukast 10 MG Tab PO SCH (20:03)
[2017-11-17] MEDS: Dextrose 5%-0.9% NaCl 1,000 ML IV SCH (07:04)
[2017-11-17] MEDS: Albuterol/Ipratropium 3.0-0.5 MG/3 ML Neb Soln INH SCH (07:39)
[2017-11-17] MEDS: Formoterol/Mometasone 200-5 MCG 8.8 GM Inhaler IH SCH (07:41)
[2017-11-17] MEDS: Lactobacillus Rhamnosus GG (Probiotic) Cap PO SCH (08:42)
[2017-11-17] MEDS: Sucralfate Suspension 1 GM/10 ML Cup PO SCH ×2 (08:42→11:54)
[2017-11-17] MEDS: Pantoprazole 40 MG Delayed-Release Granules 1 Packet PO SCH (08:42)
[2017-11-17] MEDS: Cyanocobalamin (Vitamin B12) 1,000 MCG Tab SL SCH (08:43)
[2017-11-17] MEDS: Cetirizine 10 MG Tab PO SCH (08:43)
[2017-11-17] MEDS: Escitalopram 20 MG Tab PO SCH (08:43)
[2017-11-17] MEDS: Silver Sulfadiazine 1% Crm 50 GM Tube TOP SCH (09:15)
[2017-11-17 14:04] VITALS: BP 133/81
--- NOTE | 2017-11-17 14:28 | PCM.PN ---
- General Info Date of Service: 11/17/17 Admission Dx/Problem (Free Text): Shamika continues to complain about pain in the abdomen when she eats. The pain in the tailbone is better. Functional Status: Reports: Other (Shamika continues to complain of pain in the abdomen. We'll discharge home today) - Review of Systems General: Reports: No Symptoms HEENT: Reports: No Symptoms Pulmonary: Reports: No Symptoms Cardiovascular: Reports: No Symptoms Gastrointestinal: Reports: Abdominal Pain Genitourinary: Reports: No Symptoms Musculoskeletal: Reports: No Symptoms Neurological: Reports: No Symptoms Psychiatric: Reports: No Symptoms - Patient Data Vitals - Most Recent: Last Vital Signs Temp 98.4 F 11/17/17 14:01 Pulse 60 11/17/17 14:01 Resp 18 11/17/17 14:01 BP 133/81 11/17/17 14:01 Pulse Ox 97 11/17/17 14:01 Weight - Most Recent: 199 lb 15.983 oz I&O - Last 24 Hours: Intake & Output 11/16/17 11/17/17 11/17/17 22:59 06:59 14:59 Intake Total 2540 1381 200 Output Total 1500 400 400 Balance 1040 981 -200 Med Orders - Current: Current Medications Acetaminophen (Tylenol Jr. Meltawaystan) 640 mg PO Q4H PRN PRN Reason: PAIN/FEVER Last Admin: 11/15/17 20:00 Dose: 640 mg Albuterol/Ipratropium (Duoneb 3.0-0.5 Mg/3 Ml) 3 ml INH BIDRT [facility] Last Admin: 11/17/17 07:39 Dose: 3 ml Alprazolam (Xanax) 1 mg PO TID PRN PRN Reason: ANEXITY Last Admin: 11/15/17 09:27 Dose: 1 mg Cetirizine HCl (Zyrtec) 10 mg PO DAILY [facility] Last Admin: 11/17/17 08:43 Dose: 10 mg Clonazepam (Klonopin) 1 mg PO BEDTIME [facility] Last Admin: 11/16/17 20:02 Dose: 1 mg Cyanocobalamin (Vitamin B12) 1,000 mcg IM Q7D [facility] Cyanocobalamin (Vitamin B12) 500 mcg SL DAILY [facility] Last Admin: 11/17/17 08:43 Dose: 500 mcg Escitalopram Oxalate (Lexapro) 20 mg PO DAILY [facility] Last Admin: 11/17/17 08:43 Dose: 20 mg Dextrose/Sodium Chloride (Dextrose 5%-Normal Saline) 1,000 mls @ 125 mls/hr IV ASDIRECTED [facility] Last Admin: 11/17/17 07:04 Dose: 125 mls/hr Lactobacillus Rhamnosus (Culturelle) 1 cap PO DAILY [facility] Last Admin: 11/17/17 08:42 Dose: 1 cap Levalbuterol HCl (Xopenex Hfa) 0 gm INH Q4H PRN PRN Reason: Shortness of Breath Levalbuterol HCl (Xopenex) 1.25 mg INH Q6H PRN PRN Reason: Shortness of Breath Mometasone Furoate/Formoterol Fumar (Dulera 200-5 Mcg) 2 puff IH BIDRT [facility] Last Admin: 11/17/17 07:41 Dose: 2 puff Montelukast Sodium (Singulair) 10 mg PO BEDTIME [facility] Last Admin: 11/16/17 20:03 Dose: 10 mg Ondansetron HCl (Zofran Odt) 4 mg PO Q4H PRN PRN Reason: N/V Pantoprazole Sodium (Protonix Granules) 40 mg PO Q24H [facility] Last Admin: 11/17/17 08:42 Dose: 40 mg Prochlorperazine Maleate (Compazine) 5 mg PO Q6H PRN PRN Reason: NAUSEA Scopolamine (Transderm-Scop) 1.5 mg TOP Q72H PRN PRN Reason: NAUSEA Last Admin: 11/15/17 09:24 Dose: 1.5 mg Silver Sulfadiazine (Silvadene 1% Cream 50 Gm) 1 gm TOP BID [facility] Last Admin: 11/17/17 09:15 Dose: 1 applic Sodium Chloride (Saline Flush) 10 ml FLUSH ASDIRECTED PRN PRN Reason: Keep Vein Open Sucralfate (Carafate) 1 gm PO TIDAC [facility] Last Admin: 11/17/17 11:54 Dose: 1 gm Discontinued Medications Fentanyl (Sublimaze) Confirm Administered Dose 100 mcg .ROUTE .STK-MED ONE Stop: 11/15/17 07:13 Iohexol (Omnipaque) 20 ml PO ONETIME ONE Stop: 11/16/17 06:01 Last Admin: 11/16/17 05:34 Dose: 20 ml Iohexol (Omnipaque) 20 ml PO ONETIME ONE Stop: 11/16/17 07:12 Last Admin: 11/16/17 07:52 Dose: 20 ml Midazolam HCl (Versed 1 Mg/Ml) Confirm Administered Dose 2 mg .ROUTE .STK-MED ONE Stop: 11/15/17 07:13 Propofol (Diprivan 20 Ml) Confirm Administered Dose 200 mg .ROUTE .STK-MED ONE Stop: 11/15/17 07:13 - Exam General: Alert, Oriented HEENT: Pupils Equal, Pupils Reactive, EOMI, Mucous Membr. Moist/[place] Neck: Supple Lungs: Clear to Auscultation, Normal Respiratory Effort Cardiovascular: Regular Rate, Regular Rhythm GI/Abdominal Exam: Soft Back Exam: Vertebral Tenderness Extremities: Normal Inspection, Normal Range of Motion, Non-Tender, No Pedal Edema, Normal Capillary Refill Peripheral Pulses: 1+: Radial (L), Radial (R) Skin: Warm, Dry, Intact Neurological: No New Focal Deficit Psy/Mental Status: Alert, Normal Affect, Normal Mood - Problem List Review Problem List Initiated/Reviewed/Updated: Yes - My Orders Last 24 Hours: My Active Orders 11/17/17 14:27 CBC WITH AUTO DIFF [HEME] Routine COMPREHENSIVE METABOLIC PN,CMP [CHEM] Routine 11/19/17 10:00 Cyanocobalamin (Vitamin B12) [Vitamin B12] 1,000 mcg IM Q7D - Plan Plan:: Assessment/Plan: #1. Dysphasia: EGD showed no stricture. CT showed no abnormality. She continues complaining of pain in the abdomen when she eats food or liquid #2. Coccyx Pain: X-ray was normal. this is improvig and should resolve #4. History of heart failure Echo report pending.
--- NOTE | 2017-11-17 14:28 | PCM.DCSUM1 ---
Discharge Summary - Discharge Data Discharge Date: 11/17/17 Discharge Disposition: Home, Self-Care 01 Condition: Good - Patient Summary/Data Operative Procedure(s) Performed: She did have an EGD with no complications. No esophageal structure was found and no etiology for her abdominal pain was found. Complications: none Consults: Consultations 11/15/17 11:40 Consult to Physician [CONS] Routine Consulting Provider: Gustavo Grissom Call Completed to Consulting Physician: Yes: per Dr. Roca Reason for Consult: coccyx pain Recommended Follow-up Testing/Procedures: I will speak with Dr. Sreedhar Grissom and consider transferring her to a [facility] as has been requested by her insurance company for several phone calls. I will speak with Dr. Seredhar Grissom first and see if he has any other recommendations since he is the one that did her surgeries. Dr. Sreedhar Grissom will be back in 2 days. Hospital Course: Shamika came in because of fainting and severely dehydrated condition. She was seen her psychologistand she called me concerned about her dehydration and she was admitted. She stated that every time she would eat or drink any fluids he had severe abdominal pain and stated that she had not eaten in almost 3 days or taking any fluid as well. She did have an EGD which was unremarkable. I hydrated her she did eat some food and has been discharged. Her laboratories analysis repeated just before she went home her sodium was acceptable but potassium was low. Potassium supplement has been called 20 mEq a day. I will see her in the office in 3 or 4 days depending on her regression or improvement. Her hemoglobin has been stable but low at 10 g of hemoglobin. Her blood pressure the day of discharge charge was 133/81. - Patient Instructions Diet: Heart Healthy Diet Activity: As Tolerated - Discharge Plan Home Medications: Home Meds Cetirizine [ZyrTEC] 10 mg PO DAILY 01/02/14 [History] Montelukast [Singulair] 10 mg PO DAILY #30 tab 01/10/14 [Rx] Albuterol/Ipratropium [DuoNeb 3.0-0.5 MG/3 ML] 3 ml INH BID 12/07/15 [History] ClonazePAM [KlonoPIN] 1 mg PO BEDTIME 07/10/16 [History] Ondansetron [Zofran ODT] 4 mg PO Q4H PRN 07/10/16 [History] Budesonide/Formoterol Fumarate [Symbicort 160-4.5 Mcg Inhaler] 2 puff IH BID [History] Cyanocobalamin (Vitamin B-12) [Vitamin B-12] 500 mcg SL DAILY 11/09/16 [History] Lactobacillus Acidophilus [Probiotic] 1 each PO DAILY 11/09/16 [History] Levalbuterol Tartrate [Xopenex HFA] 2 puff INH Q4H PRN 11/09/16 [History] Levalbuterol HCl [Xopenex] 1.25 mg NEB Q6H PRN 11/30/16 [History] Acetaminophen [Tylenol Jr. Meltaways] 640 mg PO Q4H PRN #0 tab.dis 12/13/16 [Rx] Sucralfate [Carafate] 1 gm PO TIDAC 12/19/16 [History] Prochlorperazine [Compazine] 5 mg PO Q6H PRN 12/26/16 [History] Scopolamine [Transderm-Scop] 1.5 mg TOP Q3D PRN #3 patch 02/19/17 [Rx] Escitalopram Oxalate 20 mg PO DAILY 04/28/17 [History] Omeprazole 40 mg PO TID 04/28/17 [History] ALPRAZolam [Xanax] 1 mg PO TID PRN 10/01/17 [History] Cyanocobalamin (Vitamin B-12) [Vitamin B-12] 1,000 mcg IM .QW 10/01/17 [History] Albuterol/Ipratropium [DuoNeb 3.0-0.5 MG/3 ML] 3 ml INH BIDRT neb 11/17/17 [Rx] Cetirizine [ZyrTEC] 10 mg PO DAILY tablet 11/17/17 [Rx] Cyanocobalamin (Vitamin B12) [Vitamin B12] 1,000 mcg IM Q7D sdv 11/17/17 [Rx] Cyanocobalamin (Vitamin B12) [Vitamin B12] 500 mcg SL DAILY tablet 11/17/17 [Rx ] Escitalopram [Lexapro] 20 mg PO DAILY tablet 11/17/17 [Rx] Lactobacillus Rhamnosus GG [Culturelle] 1 cap PO DAILY cap 11/17/17 [Rx] Levalbuterol HCl [Xopenex] 1.25 mg INH Q6H PRN neb 11/17/17 [Rx] Levalbuterol Tartrate [Xopenex HFA] 0 gm INH Q4H PRN inhaler 11/17/17 [Rx] Montelukast [Singulair] 10 mg PO BEDTIME tablet 11/17/17 [Rx] Ondansetron [Zofran ODT] 4 mg PO Q4H PRN tab.dis 11/17/17 [Rx] Pantoprazole [ProTONIX Granules] 40 mg PO Q24H packet 11/17/17 [Rx] Prochlorperazine [Compazine] 5 mg PO Q6H PRN tablet 11/17/17 [Rx] Scopolamine [Transderm-Scop] 1.5 mg TOP Q72H PRN patch 11/17/17 [Rx] Silver Sulfadiazine [Silvadene 1% Cream 50 GM] 1 gm TOP BID tube 11/17/17 [Rx] Sucralfate [Carafate] 1 gm PO TIDAC cup 11/17/17 [Rx] Referrals: Abran Roca Sr, MD [Primary Care Provider] - (Follow up next week with Dr. Roca) - Discharge Summary/Plan Comment Discharge Summary/Plan Comment: Assessment/Plan: #1. Dysphasia: EGD showed no stricture. CT showed no abnormality. She continues complaining of pain in the abdomen when she eats food or liquid #2. Coccyx Pain: X-ray was normal. this is improvig and should resolve #4. History of heart failure Echo report pending. I'll see her in the office within a week and potassium has been called for replacement 20 mEq daily. - General Info Functional Status: Reports: Other (Her pain is stable) - Review of Systems General: Reports: Weakness HEENT: Reports: No Symptoms Pulmonary: Reports: No Symptoms Cardiovascular: Reports: No Symptoms Gastrointestinal: Reports: Abdominal Pain Genitourinary: Reports: No Symptoms Musculoskeletal: Reports: No Symptoms Skin: Reports: No Symptoms Neurological: Reports: No Symptoms Psychiatric: Reports: No Symptoms - Patient Data Vitals - Most Recent: Last Vital Signs Temp 98.4 F 11/17/17 14:01 Pulse 60 11/17/17 14:01 Resp 18 11/17/17 14:01 BP 133/81 11/17/17 14:01 Pulse Ox 97 11/17/17 14:01 Weight - Most Recent: 199 lb 15.983 oz I&O - Last 24 hours: Intake & Output 11/16/17 11/17/17 11/17/17 22:59 06:59 14:59 Intake Total 2540 1381 200 Output Total 1500 400 400 Balance 1040 981 -200 Med Orders - Current: Current Medications Acetaminophen (Tylenol Jr. Meltaways) 640 mg PO Q4H PRN PRN Reason: PAIN/FEVER Last Admin: 11/15/17 20:00 Dose: 640 mg Albuterol/Ipratropium (Duoneb 3.0-0.5 Mg/3 Ml) 3 ml INH BIDRT [facility] Last Admin: 11/17/17 07:39 Dose: 3 ml Alprazolam (Xanax) 1 mg PO TID PRN PRN Reason: ANEXITY Last Admin: 11/15/17 09:27 Dose: 1 mg Cetirizine HCl (Zyrtec) 10 mg PO DAILY [facility] Last Admin: 11/17/17 08:43 Dose: 10 mg Clonazepam (Klonopin) 1 mg PO BEDTIME [facility] Last Admin: 11/16/17 20:02 Dose: 1 mg Cyanocobalamin (Vitamin B12) 1,000 mcg IM Q7D [facility] Cyanocobalamin (Vitamin B12) 500 mcg SL DAILY [facility] Last Admin: 11/17/17 08:43 Dose: 500 mcg Escitalopram Oxalate (Lexapro) 20 mg PO DAILY [facility] Last Admin: 11/17/17 08:43 Dose: 20 mg Dextrose/Sodium Chloride (Dextrose 5%-Normal Saline) 1,000 mls @ 125 mls/hr IV ASDIRECTED [facility] Last Admin: 11/17/17 07:04 Dose: 125 mls/hr Lactobacillus Rhamnosus (Culturelle) 1 cap PO DAILY [facility] Last Admin: 11/17/17 08:42 Dose: 1 cap Levalbuterol HCl (Xopenex Hfa) 0 gm INH Q4H PRN PRN Reason: Shortness of Breath Levalbuterol HCl (Xopenex) 1.25 mg INH Q6H PRN PRN Reason: Shortness of Breath Mometasone Furoate/Formoterol Fumar (Dulera 200-5 Mcg) 2 puff IH BIDRT [facility] Last Admin: 11/17/17 07:41 Dose: 2 puff Montelukast Sodium (Singulair) 10 mg PO BEDTIME [facility] Last Admin: 11/16/17 20:03 Dose: 10 mg Ondansetron HCl (Zofran Odt) 4 mg PO Q4H PRN PRN Reason: N/V Pantoprazole Sodium (Protonix Granules) 40 mg PO Q24H [facility] Last Admin: 11/17/17 08:42 Dose: 40 mg Prochlorperazine Maleate (Compazine) 5 mg PO Q6H PRN PRN Reason: NAUSEA Scopolamine (Transderm-Scop) 1.5 mg TOP Q72H PRN PRN Reason: NAUSEA Last Admin: 11/15/17 09:24 Dose: 1.5 mg Silver Sulfadiazine (Silvadene 1% Cream 50 Gm) 1 gm TOP BID [facility] Last Admin: 11/17/17 09:15 Dose: 1 applic Sodium Chloride (Saline Flush) 10 ml FLUSH ASDIRECTED PRN PRN Reason: Keep Vein Open Sucralfate (Carafate) 1 gm PO TIDAC [facility] Last Admin: 11/17/17 11:54 Dose: 1 gm Discontinued Medications Fentanyl (Sublimaze) Confirm Administered Dose 100 mcg .ROUTE .STK-MED ONE Stop: 11/15/17 07:13 Iohexol (Omnipaque) 20 ml PO ONETIME ONE Stop: 11/16/17 06:01 Last Admin: 11/16/17 05:34 Dose: 20 ml Iohexol (Omnipaque) 20 ml PO ONETIME ONE Stop: 11/16/17 07:12 Last Admin: 11/16/17 07:52 Dose: 20 ml Midazolam HCl (Versed 1 Mg/Ml) Confirm Administered Dose 2 mg .ROUTE .STK-MED ONE Stop: 11/15/17 07:13 Propofol (Diprivan 20 Ml) Confirm Administered Dose 200 mg .ROUTE .STK-MED ONE Stop: 11/15/17 07:13 - Exam General: Reports: Alert, Oriented HEENT: Reports: Pupils Equal Neck: Reports: Supple Lungs: Reports: Clear to Auscultation, Normal Respiratory Effort Cardiovascular: Reports: Regular Rate, Regular Rhythm GI/Abdominal Exam: Normal Bowel Sounds, Tender Back Exam: Reports: Vertebral Tenderness Extremities: Normal Inspection, Normal Range of Motion, Non-Tender, No Pedal Edema, Normal Capillary Refill Skin: Reports: Warm, Dry, Intact Neurological: Reports: No New Focal Deficit Psy/Mental Status: Reports: Alert, Normal Affect, Normal Mood *Q Meaningful Use (DIS) - VTE *Q VTE Criteria *Q: - Stroke *Q Stroke Criteria *Q: - AMI *Q AMI Criteria *Q:
[2017-11-19] MEDS ORDERED: Cyanocobalamin (Vitamin B12) 1,000 MCG/ML SDV IM SCH (10:00)
== END 2017-11-17 16:14 | disposition home or self-care (01) | DRG 254 ==
LOC: JP.MS 15:18
PROVIDERS: ADMIT Internal Medicine; ATTEND Internal Medicine
PROC: 0DJ08ZZ Inspection of Upper Intestinal Tract, Via Natural or Artificial Opening Endoscopic (ICD-10-PCS; principal; 2017-11-15)
DX: R13.10 Dysphagia, unspecified (principal); E53.8 Deficiency of other specified B group vitamins; M53.3 Sacrococcygeal disorders, not elsewhere classified; R07.89 Other chest pain; Z98.84 Bariatric surgery status; G47.30 Sleep apnea, unspecified; Z99.89 Dependence on other enabling machines and devices; K21.9 Gastro-esophageal reflux disease without esophagitis; M54.9 Dorsalgia, unspecified; G89.29 Other chronic pain; M79.7 Fibromyalgia; F41.9 Anxiety disorder, unspecified; Z87.01 Personal history of pneumonia (recurrent); F41.0 Panic disorder [episodic paroxysmal anxiety]; Z98.0 Intestinal bypass and anastomosis status; E86.0 Dehydration; R55 Syncope and collapse; R10.9 Unspecified abdominal pain; Z87.898 Personal history of other specified conditions; Z91.040 Latex allergy status; Z88.5 Allergy status to narcotic agent; Z91.018 Allergy to other foods; Z91.048 Other nonmedicinal substance allergy status
CPT/HCPCS: 36415; 72100; 72100-26; 74150; 74150-26; 80053; 82607; 85025; 93306; 94640; 94640-76; 94664; A9270-GY; J2250; J2704; J3010; J7620; Q9965

== ENCOUNTER 2017-12-01 17:59 | Emergency (ER) | payer BC, MEDICAID ==
[2017-12-01 19:48] VITALS: BP 147/67
[2017-12-01] MEDS ORDERED: Pantoprazole 40 MG Vial IVPUSH ONE (20:12)
[2017-12-01] MEDS ORDERED: Ondansetron 4 MG/2 ML SDV IVPUSH ONE (20:12)
[2017-12-01] MEDS ORDERED: Lactated Ringers 1,000 ML IV SCH ×2 (20:15→22:45)
[2017-12-01] MEDS ORDERED: HYDROmorphone 1 MG/ML Syringe IVPUSH ONE (20:25)
--- NOTE | 2017-12-01 20:33 | EDM.PDOC ---
ED HPI GENERAL MEDICAL PROBLEM - General Chief Complaint: Abdominal Pain Stated Complaint: DIZZINESS;ABDOMINAL PAIN Time Seen by Provider: 12/01/17 20:06 Source of Information: Reports: Patient History Limitations: Reports: No Limitations - History of Present Illness INITIAL COMMENTS - FREE TEXT/NARRATIVE: abdominal pain; this is a 42 y/o female presents to ER with . reports was in hospital 2 weeks ago for four days due to abdominal pain. She was doing well at home, but the past four day developed worsen epigastric abdominal pain with nausea, vomiting and diarrhea. dietary; reports 200 to 300 kcals per day. 2017; gastric sleeve Onset: Gradual Location: Reports: Abdomen, Generalized Quality: Reports: Same as Previous Episode Severity: Severe (rates pain at 7 to 8) Worsens with: Reports: Eating Context: Reports: Other Associated Symptoms: Reports: Headaches, Loss of Appetite, Nausea/Vomiting, Syncope (near fainting) abdominal pain Pain Score (Numeric/FACES): 8 headache Pain Score (Numeric/FACES): 7 - Related Data Allergies Allergy/AdvReac Type Severity Reaction Status Date / Time banana Allergy Severe Swollen Verified 12/01/17 19:56 Tongue walnut Allergy Intermediate Swollen Verified 12/01/17 19:56 Tongue latex Allergy Cannot Verified 12/01/17 19:56 Remember mold Allergy Wheezing Verified 12/01/17 19:56 morphine Allergy Hives Verified 12/01/17 19:56 poison corine extract Allergy Rash Verified 12/01/17 19:56 pollen extracts Allergy Wheezing Verified 12/01/17 19:56 DUST Allergy Unknown Wheezing Uncoded 12/01/17 19:56 SMOKE AdvReac Intermediate Bronchospas Uncoded 12/01/17 19:56 ms Home Meds: Home Meds Cetirizine [ZyrTEC] 10 mg PO DAILY 01/02/14 [History] Montelukast [Singulair] 10 mg PO DAILY #30 tab 01/10/14 [Rx] Albuterol/Ipratropium [DuoNeb 3.0-0.5 MG/3 ML] 3 ml INH BID 12/07/15 [History] ClonazePAM [KlonoPIN] 1 mg PO BEDTIME 07/10/16 [History] Ondansetron [Zofran ODT] 4 mg PO Q4H PRN 07/10/16 [History] Budesonide/Formoterol Fumarate [Symbicort 160-4.5 Mcg Inhaler] 2 puff IH BID [History] Cyanocobalamin (Vitamin B-12) [Vitamin B-12] 500 mcg SL DAILY 11/09/16 [History] Lactobacillus Acidophilus [Probiotic] 1 each PO DAILY 11/09/16 [History] Levalbuterol Tartrate [Xopenex HFA] 2 puff INH Q4H PRN 11/09/16 [History] Levalbuterol HCl [Xopenex] 1.25 mg NEB Q6H PRN 11/30/16 [History] Acetaminophen [Tylenol Jr. [place]] 640 mg PO Q4H PRN #0 tab.dis 12/13/16 [Rx] Sucralfate [Carafate] 1 gm PO TIDAC 12/19/16 [History] Prochlorperazine [Compazine] 5 mg PO Q6H PRN 12/26/16 [History] Scopolamine [Transderm-Scop] 1.5 mg TOP Q3D PRN #3 patch 02/19/17 [Rx] Escitalopram Oxalate 20 mg PO DAILY 04/28/17 [History] Omeprazole 40 mg PO TID 04/28/17 [History] ALPRAZolam [Xanax] 1 mg PO TID PRN 10/01/17 [History] Cyanocobalamin (Vitamin B-12) [Vitamin B-12] 1,000 mcg IM .QW 10/01/17 [History] Albuterol/Ipratropium [DuoNeb 3.0-0.5 MG/3 ML] 3 ml INH BIDRT neb 11/17/17 [Rx] Cetirizine [ZyrTEC] 10 mg PO DAILY tablet 11/17/17 [Rx] Cyanocobalamin (Vitamin B12) [Vitamin B12] 1,000 mcg IM Q7D sdv 11/17/17 [Rx] Cyanocobalamin (Vitamin B12) [Vitamin B12] 500 mcg SL DAILY tablet 11/17/17 [Rx ] Escitalopram [Lexapro] 20 mg PO DAILY tablet 11/17/17 [Rx] Lactobacillus Rhamnosus GG [Culturelle] 1 cap PO DAILY cap 11/17/17 [Rx] Levalbuterol HCl [Xopenex] 1.25 mg INH Q6H PRN neb 11/17/17 [Rx] Levalbuterol Tartrate [Xopenex HFA] 0 gm INH Q4H PRN inhaler 11/17/17 [Rx] Montelukast [Singulair] 10 mg PO BEDTIME tablet 11/17/17 [Rx] Ondansetron [Zofran ODT] 4 mg PO Q4H PRN tab.dis 11/17/17 [Rx] Pantoprazole [ProTONIX Granules] 40 mg PO Q24H packet 11/17/17 [Rx] Prochlorperazine [Compazine] 5 mg PO Q6H PRN tablet 11/17/17 [Rx] Scopolamine [Transderm-Scop] 1.5 mg TOP Q72H PRN patch 11/17/17 [Rx] Silver Sulfadiazine [Silvadene 1% Cream 50 GM] 1 gm TOP BID tube 11/17/17 [Rx] Sucralfate [Carafate] 1 gm PO TIDAC cup 11/17/17 [Rx] Past Medical History HEENT History: Reports: Sinusitis, Other (See Below) Other HEENT History: TMJ. soften Palate Cardiovascular History: Reports: Heart Murmur, Other (See Below) Other Cardiovascular History: Mitral Valve Regurgitation. Left heart faliure "stiff" Respiratory History: Reports: Asthma, Bronchitis, Recurrent, COPD, Intubation, Previous, Pneumonia, Recurrent, Sleep Apnea, SOB, Other (See Below) Other Respiratory History: polyp on larynx; intubated x2 after "quit breathing" . c-pap Gastrointestinal History: Reports: Bowel Obstruction, Cholelithiasis, Chronic Constipation, GERD Genitourinary History: Reports: Urinary Incontinence MANAGER [facility] History: Reports: Polycystic Ovaries, Musculoskeletal History: Reports: Back Pain, Chronic, Fracture, Fibromyalgia, Other (See Below) Other Musculoskeletal History: knee/ankle pain bilateral Neurological History: Reports: Concussion, Headaches, Chronic, Migraines, Seizure, Vertigo Psychiatric History: Reports: Anxiety, Depression, Eating Disorders, Mood Swings , Panic Attack Endocrine/Metabolic History: Reports: Obesity/BMI 30+, Vitamin D Deficiency, Other (See Below) Other Endocrine/Metabolic History: prediabetic/adrenal gland deficiency Hematologic History: Reports: Anemia, B12 Deficiency, Folic Acid Immunologic History: Reports: Other (See Below) Other Immunologic History: due to steriod use for medical reasons, "they" feel her immune system is compromised Oncologic (Cancer) History: Reports: None Dermatologic History: Reports: Cellulitis, Other (See Below) Other Dermatologic History: biopsy of face for moles - Infectious Disease History Infectious Disease History: Reports: Chicken Pox, Shingles Other Infectious Disease History: Viral meningitis - Past Surgical History Head Surgeries/Procedures: Reports: None HEENT Surgical History: Reports: LASIK, Oral Surgery GI Surgical History: Reports: Cholecystectomy, EGD, Esophageal Dilatation, Hernia Repair/Other, Nigel Fundoplication, Other (See Below) Other GI Surgeries/Procedures: full gastroectomy Female Surgical History: Reports: Section, Tubal Ligation Endocrine Surgical History: Reports: None Neurological Surgical History: Reports: None Musculoskeletal Surgical History: Reports: None Dermatological Surgical History: Reports: Skin Biopsy Social & Family History - Family History Family Medical History: Noncontributory Cardiac: Reports: Pacemaker Respiratory: Reports: Asthma, COPD, Other (See Below) Other Respiratory Family Hisory: bronchitis GI: Reports: Irritable Bowel Syndrome OBGYN: Reports: Musculoskeletal: Reports: Arthritis Neurological: Reports: Cerebral Aneurysms Psychiatric: Reports: Anxiety, Depression Endocrine/Metabolic: Reports: Diabetes, type II, Hypothyroidism, Obesity/MBI 30+ , Vitamin D Deficiency Hematologic: Reports: B12 Deficiency Immunologic: Reports: None Oncologic: Reports: Brain, Lung, Skin - Tobacco Use Smoking Status *Q: Never Smoker Second Hand Smoke Exposure: No - Caffeine Use Caffeine Use: Reports: Coffee Other Caffeine Use: 2 cups coffee per day and 1-2 sodas Caffeine Use Comment: 2-3 cups daily - Alcohol Use Days Per Week of Alcohol Use: 0 - Recreational Drug Use Recreational Drug Use: No - Living Situation & Occupation Living situation: Reports: , with Family Occupation: Employed ED ROS GENERAL - Review of Systems Review Of Systems: See Below Constitutional: Reports: Weakness, Weight Loss HEENT: Reports: Throat Pain (from frequent vomiting) Respiratory: Reports: No Symptoms Cardiovascular: Reports: No Symptoms Endocrine: Reports: Fatigue GI/Abdominal: Reports: Abdominal Pain, Diarrhea, Decreased Appetite, Nausea, Vomiting : Reports: No Symptoms Musculoskeletal: Reports: Back Pain Skin: Reports: Pallor Neurological: Reports: Dizziness, Headache, Syncope (near fainting), Weakness Psychiatric: Reports: No Symptoms Hematologic/Lymphatic: Reports: No Symptoms Immunologic: Reports: No Symptoms ED EXAM, GENERAL - Physical Exam Exam: See Below Exam Limited By: No Limitations General Appearance: Alert, WD/WN, Mild Distress Eye Exam: Bilateral Eye: PERRL Ears: Normal External Exam, Normal Canal, Hearing Grossly Normal, Normal TMs Ear Exam: Bilateral Ear: Auricle Normal, Canal Normal, TM normal Nose: Normal Inspection, Normal Mucosa, No Blood Throat/Mouth: Normal Inspection, Normal Lips, Normal Teeth, Normal Gums, Normal Oropharynx, Normal Voice, No Airway Compromise Head: Atraumatic, Normocephalic Neck: Normal Inspection, Supple, Non-Tender, Full Range of Motion Respiratory/Chest: No Respiratory Distress, Lungs Clear, Normal Breath Sounds, No Accessory Muscle Use, Chest Non-Tender Cardiovascular: Regular Rate, Rhythm, No Murmur Peripheral Pulses: 2+: Dorsalis Pedis (L), Dorsalis Pedis (R) GI/Abdominal: Tender (epigastric to left lower quadrant) (Female) Exam: Deferred Rectal (Female) Exam: Deferred Back Exam: Normal Inspection, Full Range of Motion Extremities: Normal Inspection, Normal Range of Motion, Non-Tender, No Pedal Edema Neurological: Alert, Oriented, Normal Cognition, No Motor/Sensory Deficits Psychiatric: Tearful Skin Exam: Warm, Dry, Intact, Normal Color, No Rash Lymphatic: No Adenopathy Course - Vital Signs Last Recorded V/S: Last Vital Signs Temp 36.5 C 12/01/17 20:03 Pulse 76 12/01/17 20:03 Resp 12 12/01/17 20:03 BP 147/67 H 12/01/17 20:03 Pulse Ox 100 12/01/17 20:03 - Orders/Labs/Meds Orders: Active Orders 24 hr Category Date Time Status Abdomen Pelvis wo Cont [CT] Stat Exams 12/01/17 21:46 Taken Lactated Ringers [Ringers, Lactated] 1,000 ml Med 12/01/17 20:15 Active IV ASDIRECTED Lactated Ringers [Ringers, Lactated] 1,000 ml Med 12/01/17 22:45 Active IV ASDIRECTED Medication Orders Lactated Ringer's (Ringers, Lactated) 1,000 mls @ 999 mls/hr IV ASDIRECTED ALEX Last Admin: 12/01/17 20:30 Dose: 999 mls/hr Lactated Ringer's (Ringers, Lactated) 1,000 mls @ 500 mls/hr IV ASDIRECTED ALEX Last Admin: 12/01/17 22:41 Dose: 500 mls/hr Labs: Laboratory Tests 12/01/17 12/01/17 12/01/17 Range/Units 20:20 20:20 20:20 WBC 4.9 (4.5-11.0) K/uL RBC 3.97 (3.30-5.50) M/uL Hgb 11.8 L (12.0-15.0) g/dL Hct 35.2 L (36.0-48.0) % MCV 89 (80-98) fL MCH 30 (27-31) pg MCHC 34 (32-36) % Plt Count 258 (150-400) K/uL Neut % (Auto) 47 (36-66) % Lymph % (Auto) 41 (24-44) % [place] % (Auto) 7 H (2-6) % Eos % (Auto) 4 (2-4) % Baso % (Auto) 1 (0-1) % Sodium 146 (140-148) mmol/L Potassium 3.4 L (3.6-5.2) mmol/L Chloride 110 H (100-108) mmol/L Carbon Dioxide 26 (21-32) mmol/L Anion Gap 13.4 (5.0-14.0) mmol/L BUN 17 D (7-18) mg/dL Creatinine 0.5 L (0.6-1.0) mg/dL Est Cr Clr Drug Dosing 133.24 mL/min Estimated GFR (MDRD) > 60 (>60) Glucose 80 (74-106) mg/dL Calcium 8.1 L (8.5-10.1) mg/dL Phosphorus 4.1 (2.5-4.9) mg/dL Magnesium 1.7 L (1.8-2.4) mg/dL Total Bilirubin 0.5 D (0.2-1.0) mg/dL AST 16 (15-37) U/L ALT 32 (12-78) U/L Alkaline Phosphatase 83 (46-116) U/L Total Protein 6.4 (6.4-8.2) g/dL Albumin 3.5 (3.4-5.0) g/dL Globulin 2.9 (2.3-3.5) g/dL Albumin/Globulin Ratio 1.2 (1.2-2.2) Amylase 27 (25-115) U/L Lipase 55 L (73-393) U/L TSH, Ultra Sensitive 2.934 (0.358-3.740) uIU/mL Urine Color Urine Appearance Urine pH (4.5-8.0) Ur Specific [place] (1.008-1.030) Urine Protein (NEGATIVE) mg/dL Urine Glucose (UA) (NEGATIVE) mg/dL Urine Ketones (NEGATIVE) mg/dL Urine Occult Blood (NEGATIVE) Urine Nitrite (NEGATIVE) Urine Bilirubin (NEGATIVE) Urine Urobilinogen (NORMAL) mg/dL Ur Leukocyte Esterase (NEGATIVE) Urine RBC (0-5) Urine WBC (0-5) Ur Epithelial Cells Amorphous Sediment Urine Bacteria Urine Mucus Urine Other 12/01/17 Range/Units 20:29 WBC (4.5-11.0) K/uL RBC (3.30-5.50) M/uL Hgb (12.0-15.0) g/dL Hct (36.0-48.0) % MCV (80-98) fL MCH (27-31) pg MCHC (32-36) % Plt Count (150-400) K/uL Neut % (Auto) (36-66) % Lymph % (Auto) (24-44) % [place] % (Auto) (2-6) % Eos % (Auto) (2-4) % Baso % (Auto) (0-1) % Sodium (140-148) mmol/L Potassium (3.6-5.2) mmol/L Chloride (100-108) mmol/L Carbon Dioxide (21-32) mmol/L Anion Gap (5.0-14.0) mmol/L BUN (7-18) mg/dL Creatinine (0.6-1.0) mg/dL Est Cr Clr Drug Dosing mL/min Estimated GFR (MDRD) (>60) Glucose (74-106) mg/dL Calcium (8.5-10.1) mg/dL Phosphorus (2.5-4.9) mg/dL Magnesium (1.8-2.4) mg/dL Total Bilirubin (0.2-1.0) mg/dL AST (15-37) U/L ALT (12-78) U/L Alkaline Phosphatase (46-116) U/L Total Protein (6.4-8.2) g/dL Albumin (3.4-5.0) g/dL Globulin (2.3-3.5) g/dL Albumin/Globulin Ratio (1.2-2.2) Amylase (25-115) U/L Lipase (73-393) U/L TSH, Ultra Sensitive (0.358-3.740) uIU/mL Urine Color Yellow Urine Appearance Slightly cloudy Urine pH 5.0 (4.5-8.0) Ur Specific [place] 1.025 (1.008-1.030) Urine Protein Negative (NEGATIVE) mg/dL Urine Glucose (UA) Normal (NEGATIVE) mg/dL Urine Ketones 50 H (NEGATIVE) mg/dL Urine Occult Blood Negative (NEGATIVE) Urine Nitrite Negative (NEGATIVE) Urine Bilirubin Small (NEGATIVE) Urine Urobilinogen 4 (NORMAL) mg/dL Ur Leukocyte Esterase Negative (NEGATIVE) Urine RBC Not seen (0-5) Urine WBC 0-5 (0-5) Ur Epithelial Cells Many Amorphous Sediment Many Urine Bacteria Few Urine Mucus Not seen Urine Other Meds: Medications Generic Name Dose Route Start Last Admin Trade Name Freq PRN Reason Stop Dose Admin Lactated Ringer's 1,000 mls @ 999 mls/hr 12/01/17 20:15 12/01/17 20:30 Ringers, Lactated IV 999 mls/hr ASDIRECTED ALEX Administration Lactated Ringer's 1,000 mls @ 500 mls/hr 12/01/17 22:45 12/01/17 22:41 Ringers, Lactated IV 500 mls/hr ASDIRECTED ALEX Administration Discontinued Medications Generic Name Dose Route Start Last Admin Trade Name Freq PRN Reason Stop Dose Admin Hydromorphone HCl 1 mg 12/01/17 20:25 12/01/17 20:44 Dilaudid IVPUSH 12/01/17 20:26 1 mg ONETIME ONE Administration Lorazepam 1 mg 12/01/17 21:45 12/01/17 22:01 Ativan IVPUSH 12/01/17 21:46 1 mg ONETIME ONE Administration Ondansetron HCl 4 mg 12/01/17 20:12 12/01/17 20:43 Zofran IVPUSH 12/01/17 20:13 4 mg ONETIME ONE Administration Pantoprazole Sodium 40 mg 12/01/17 20:12 12/01/17 20:44 Protonix Iv IVPUSH 12/01/17 20:13 40 mg ONETIME ONE Administration - Re-Assessments/Exams Free Text/Narrative Re-Assessment/Exam: 12/01/17 20:35 Mrs. Durán, has past history of gastric sleeve in 2017. discussed with her will order labs; cbc, cmp, amylase, lipase, ua, mg++ image; abdomen two view, will need to consider abdomen-pelvis Meds; LR 999ml/hr, zofran 4mg iv, protonix 40 mg iv, Dilaudid 1 mg iv will make a plan of care dependent on labs and imaging results she agrees with plan of care. 12/01/17 21:47 patient now with sharp stabbing pain, complaint of nausea and vomiting will order Abdomen pelvis CT without contrast give Ativan 1 mg iv now give additional one liter at 500ml 12/01/17 23:15 labs are negative Abdomen Pelvis CT scan is negative for acute process. no bowel obstruction 12/01/17 23:23 patient is sleeping, pain and nausea resolved discharge to home Departure - Departure Time of Disposition: 23:24 Disposition: Home, Self-Care 01 Condition: Good, Fair Clinical Impression: Dehydration - Discharge Information Instructions: Dehydration, Adult, [id number] Referrals: Abran Roca Sr, MD [Primary Care Provider] - Forms: ED Department Discharge Care Plan Goals: dehydration -given two liters of fluid in ER and medications -advise liquid diet for 24 hours, then advance to soft as tolerated -avoid cheese and nuts -call office on Sunday for recheck. Return to ER if symptoms return, has increase pain, fever, chills, nausea, vomiting, diarrhea or any concerns. - Problem List & Annotations (1) Dehydration SNOMED Code(s): 32215354 Code(s): E86.0 - DEHYDRATION Status: Acute Priority: Medium Current Visit: Yes - Problem List Review Problem List Initiated/Reviewed/Updated: Yes - My Orders Last 24 Hours: My Active Orders 12/01/17 20:15 Lactated Ringers [Ringers, Lactated] 1,000 ml IV ASDIRECTED 12/01/17 21:46 Abdomen Pelvis wo Cont [CT] Stat 12/01/17 22:45 Lactated Ringers [Ringers, Lactated] 1,000 ml IV ASDIRECTED - Assessment/Plan Last 24 Hours: My Active Orders 12/01/17 20:15 Lactated Ringers [Ringers, Lactated] 1,000 ml IV ASDIRECTED 12/01/17 21:46 Abdomen Pelvis wo Cont [CT] Stat 12/01/17 22:45 Lactated Ringers [Ringers, Lactated] 1,000 ml IV ASDIRECTED Plan: dehydration -labs and abdomen pelvis CT is non-acute -given two liters of fluid in ER and medications -advise liquid diet for 24 hours, then advance to soft as tolerated -avoid cheese and nuts -call office on Sunday for recheck. Return to ER if symptoms return, has increase pain, fever, chills, nausea, vomiting, diarrhea or any concerns.
[2017-12-01] MEDS ORDERED: LORazepam 2 MG/ML SDV IVPUSH ONE (21:45)
== END 2017-12-02 | disposition home or self-care (01) ==
LOC: JP.ED 17:59
DX: E86.0 Dehydration (principal); F41.9 Anxiety disorder, unspecified; F32.9 Major depressive disorder, single episode, unspecified; Z79.899 Other long term (current) drug therapy; Z91.040 Latex allergy status; Z91.018 Allergy to other foods; Z88.5 Allergy status to narcotic agent; Z91.09 Other allergy status, other than to drugs and biological substances
CPT/HCPCS: 36415; 74176; 80053; 81001; 82150; 83690; 83735; 84100; 84443; 85025; 96361; 96374; 96375; 99284; 99284-25; C9113; J1170; J2060; J2405; J7120

== ENCOUNTER 2017-12-02 18:51 | Emergency (ER) | payer BC, MEDICAID ==
[2017-12-02] MEDS ORDERED: Sodium Chloride 0.9% 10 ML Syringe FLUSH PRN (19:35)
[2017-12-02] MEDS ORDERED: MVI, Adult with Vitamin K 10 ML, Thiamine 200 MG, Folic Acid 1 MG, Magnesium Sulfate 2 ... IV ONE ×5 (19:35)
--- NOTE | 2017-12-02 19:38 | EDM.PDOC ---
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 She states she is so weak she can barely ambulate, does have an appointment with the [facility] on Sunday - Related Data Allergies Allergy/AdvReac Type Severity Reaction Status Date / Time banana Allergy Severe Swollen Verified 12/02/17 18:59 Tongue walnut Allergy Intermediate Swollen Verified 12/02/17 18:59 Tongue latex Allergy Cannot Verified 12/02/17 18:59 Remember mold Allergy Wheezing Verified 12/02/17 18:59 morphine Allergy Hives Verified 12/02/17 18:59 poison corine extract Allergy Rash Verified 12/02/17 18:59 pollen extracts Allergy Wheezing Verified 12/02/17 18:59 DUST Allergy Unknown Wheezing Uncoded 12/02/17 18:59 SMOKE AdvReac Intermediate Bronchospas Uncoded 12/02/17 18:59 ms Home Meds: Home Meds Cetirizine [ZyrTEC] 10 mg PO DAILY 01/02/14 [History] Montelukast [Singulair] 10 mg PO DAILY #30 tab 01/10/14 [Rx] Albuterol/Ipratropium [DuoNeb 3.0-0.5 MG/3 ML] 3 ml INH BID 12/07/15 [History] ClonazePAM [KlonoPIN] 1 mg PO BEDTIME 07/10/16 [History] Ondansetron [Zofran ODT] 4 mg PO Q4H PRN 07/10/16 [History] Budesonide/Formoterol Fumarate [Symbicort 160-4.5 Mcg Inhaler] 2 puff IH BID [History] Cyanocobalamin (Vitamin B-12) [Vitamin B-12] 500 mcg SL DAILY 11/09/16 [History] Lactobacillus Acidophilus [Probiotic] 1 each PO DAILY 11/09/16 [History] Levalbuterol Tartrate [Xopenex HFA] 2 puff INH Q4H PRN 11/09/16 [History] Levalbuterol HCl [Xopenex] 1.25 mg NEB Q6H PRN 11/30/16 [History] Acetaminophen [Tylenol Jr. Meltaways] 640 mg PO Q4H PRN #0 tab.dis 12/13/16 [Rx] Sucralfate [Carafate] 1 gm PO TIDAC 12/19/16 [History] Prochlorperazine [Compazine] 5 mg PO Q6H PRN 12/26/16 [History] Scopolamine [Transderm-Scop] 1.5 mg TOP Q3D PRN #3 patch 02/19/17 [Rx] Escitalopram Oxalate 20 mg PO DAILY 04/28/17 [History] Omeprazole 40 mg PO TID 04/28/17 [History] ALPRAZolam [Xanax] 1 mg PO TID PRN 10/01/17 [History] Cyanocobalamin (Vitamin B-12) [Vitamin B-12] 1,000 mcg IM .QW 10/01/17 [History] Albuterol/Ipratropium [DuoNeb 3.0-0.5 MG/3 ML] 3 ml INH BIDRT neb 11/17/17 [Rx] Cetirizine [ZyrTEC] 10 mg PO DAILY tablet 11/17/17 [Rx] Cyanocobalamin (Vitamin B12) [Vitamin B12] 1,000 mcg IM Q7D sdv 11/17/17 [Rx] Cyanocobalamin (Vitamin B12) [Vitamin B12] 500 mcg SL DAILY tablet 11/17/17 [Rx ] Escitalopram [Lexapro] 20 mg PO DAILY tablet 11/17/17 [Rx] Lactobacillus Rhamnosus GG [Culturelle] 1 cap PO DAILY cap 11/17/17 [Rx] Levalbuterol HCl [Xopenex] 1.25 mg INH Q6H PRN neb 11/17/17 [Rx] Levalbuterol Tartrate [Xopenex HFA] 0 gm INH Q4H PRN inhaler 11/17/17 [Rx] Montelukast [Singulair] 10 mg PO BEDTIME tablet 11/17/17 [Rx] Ondansetron [Zofran ODT] 4 mg PO Q4H PRN tab.dis 11/17/17 [Rx] Pantoprazole [ProTONIX Granules] 40 mg PO Q24H packet 11/17/17 [Rx] Prochlorperazine [Compazine] 5 mg PO Q6H PRN tablet 11/17/17 [Rx] Scopolamine [Transderm-Scop] 1.5 mg TOP Q72H PRN patch 11/17/17 [Rx] Silver Sulfadiazine [Silvadene 1% Cream 50 GM] 1 gm TOP BID tube 11/17/17 [Rx] Sucralfate [Carafate] 1 gm PO TIDAC cup 11/17/17 [Rx] Past Medical History HEENT History: Reports: Sinusitis, Other (See Below) Other HEENT History: TMJ. soften Palate Cardiovascular History: Reports: Heart Murmur, Other (See Below) Other Cardiovascular History: Mitral Valve Regurgitation. Left heart faliure "stiff" Respiratory History: Reports: Asthma, Bronchitis, Recurrent, COPD, Intubation, Previous, Pneumonia, Recurrent, Sleep Apnea, SOB, Other (See Below) Other Respiratory History: polyp on larynx; intubated x2 after "quit breathing" . c-pap Gastrointestinal History: Reports: Bowel Obstruction, Cholelithiasis, Chronic Constipation, GERD Genitourinary History: Reports: Urinary Incontinence [employer]AD[employer] W[employer] History: Reports: Polycystic Ovaries, Musculoskeletal History: Reports: Back Pain, Chronic, Fracture, Fibromyalgia, Other (See Below) Other Musculoskeletal History: knee/ankle pain bilateral Neurological History: Reports: Concussion, Headaches, Chronic, Migraines, Seizure, Vertigo Psychiatric History: Reports: Anxiety, Depression, Eating Disorders, Mood Swings , Panic Attack Endocrine/Metabolic History: Reports: Obesity/BMI 30+, Vitamin D Deficiency, Other (See Below) Other Endocrine/Metabolic History: prediabetic/adrenal gland deficiency Hematologic History: Reports: Anemia, B12 Deficiency, Folic Acid Immunologic History: Reports: Other (See Below) Other Immunologic History: due to steriod use for medical reasons, "they" feel her immune system is compromised Dermatologic History: Reports: Cellulitis, Other (See Below) Other Dermatologic History: biopsy of face for moles - Infectious Disease History Infectious Disease History: Reports: C-Difficile, Shingles Other Infectious Disease History: Viral meningitis - Past Surgical History HEENT Surgical History: Reports: LASIK, Oral Surgery GI Surgical History: Reports: Cholecystectomy, EGD, Esophageal Dilatation, Hernia Repair/Other, Nigel Fundoplication, Other (See Below) Other GI Surgeries/Procedures: full gastroectomy Female Surgical History: Reports: Section, Tubal Ligation Endocrine Surgical History: Reports: None Neurological Surgical History: Reports: None Musculoskeletal Surgical History: Reports: None Dermatological Surgical History: Reports: Skin Biopsy Social & Family History - Family History Family Medical History: Noncontributory Cardiac: Reports: Pacemaker Respiratory: Reports: Asthma, COPD, Other (See Below) Other Respiratory Family Hisory: bronchitis GI: Reports: Irritable Bowel Syndrome OBGYN: Reports: Musculoskeletal: Reports: Arthritis Neurological: Reports: Cerebral Aneurysms Psychiatric: Reports: Anxiety, Depression Endocrine/Metabolic: Reports: Diabetes, type II, Hypothyroidism, Obesity/MBI 30+ , Vitamin D Deficiency Hematologic: Reports: B12 Deficiency Immunologic: Reports: None Oncologic: Reports: Brain, Lung, Skin - Tobacco Use Smoking Status *Q: Never Smoker Second Hand Smoke Exposure: No - Caffeine Use Caffeine Use: Reports: Coffee Other Caffeine Use: 2 cups coffee per day and 1-2 sodas Caffeine Use Comment: 2-3 cups daily - Alcohol Use Days Per Week of Alcohol Use: 0 - Recreational Drug Use Recreational Drug Use: No - Living Situation & Occupation Living situation: Reports: , with Family Occupation: Employed ED ROS GENERAL - Review of Systems Review Of Systems: See Below Constitutional: Reports: Weakness, Fatigue HEENT: Reports: No Symptoms Respiratory: Reports: No Symptoms Cardiovascular: Reports: No Symptoms GI/Abdominal: Reports: Abdominal Pain, Nausea : Reports: No Symptoms Musculoskeletal: Reports: No Symptoms Skin: Reports: No Symptoms Neurological: Reports: No Symptoms ED EXAM, GENERAL - Physical Exam Exam: See Below Exam Limited By: No Limitations General Appearance: Alert, WD/WN, No Apparent Distress Neck: Normal Inspection, Supple, Non-Tender, Full Range of Motion Respiratory/Chest: No Respiratory Distress, Lungs Clear, Normal Breath Sounds, No Accessory Muscle Use Cardiovascular: Regular Rate, Rhythm, No Murmur GI/Abdominal: Soft, Non-Tender Course - Vital Signs Last Recorded V/S: Last Vital Signs Temp 97.9 F 12/02/17 21:57 Pulse 74 12/02/17 21:57 Resp 16 12/02/17 21:57 BP 123/81 12/02/17 21:57 Pulse Ox 97 12/02/17 21:57 Orthostatic Blood Pressure [ 131/81 Supine] Orthostatic Blood Pressure [ 133/93 Standing] Orthostatic Blood Pressure [ 141/94 Sitting] - Orders/Labs/Meds Orders: Active Orders 24 hr Category Date Time Status Peripheral IV Care [RC] . DIRECTED Care 12/02/17 19:35 Active Sodium Chloride 0.9% [Saline Flush] Med 12/02/17 19:35 Active 10 ml FLUSH ASDIRECTED PRN Peripheral IV Insertion Adult [OM.PC] Urgent Oth 12/02/17 19:35 Ordered Medication Orders Sodium Chloride (Saline Flush) 10 ml FLUSH ASDIRECTED PRN PRN Reason: Keep Vein Open Last Admin: 12/02/17 20:01 Dose: 10 ml Labs: Laboratory Tests 12/02/17 12/02/17 12/02/17 Range/Units 19:18 19:52 19:52 WBC 4.1 L (4.5-11.0) K/uL RBC 3.79 (3.30-5.50) M/uL Hgb 11.2 L (12.0-15.0) g/dL Hct 33.4 L (36.0-48.0) % MCV 88 (80-98) fL MCH 30 (27-31) pg MCHC 34 (32-36) % Plt Count 234 (150-400) K/uL Neut % (Auto) 52 (36-66) % Lymph % (Auto) 37 (24-44) % [place] % (Auto) 7 H (2-6) % Eos % (Auto) 3 (2-4) % Baso % (Auto) 1 (0-1) % Sodium (140-148) mmol/L Potassium (3.6-5.2) mmol/L Chloride (100-108) mmol/L Carbon Dioxide (21-32) mmol/L Anion Gap (5.0-14.0) mmol/L BUN (7-18) mg/dL Creatinine (0.6-1.0) mg/dL Est Cr Clr Drug Dosing mL/min Estimated GFR (MDRD) (>60) Glucose (74-106) mg/dL Calcium (8.5-10.1) mg/dL Magnesium 1.6 L (1.8-2.4) mg/dL Urine Color Yellow Urine Appearance Slightly cloudy Urine pH 5.0 (4.5-8.0) Ur Specific [place] 1.020 (1.008-1.030) Urine Protein Negative (NEGATIVE) mg/dL Urine Glucose (UA) Normal (NEGATIVE) mg/dL Urine Ketones 50 H (NEGATIVE) mg/dL Urine Occult Blood Negative (NEGATIVE) Urine Nitrite Negative (NEGATIVE) Urine Bilirubin Small (NEGATIVE) Urine Urobilinogen 4 (NORMAL) mg/dL Ur Leukocyte Esterase Negative (NEGATIVE) Urine RBC 0-5 (0-5) Urine WBC 0-5 (0-5) Ur Epithelial Cells Many Amorphous Sediment Few Urine Bacteria Not seen Urine Mucus Not seen Urine Other 12/02/17 Range/Units 19:52 WBC (4.5-11.0) K/uL RBC (3.30-5.50) M/uL Hgb (12.0-15.0) g/dL Hct (36.0-48.0) % MCV (80-98) fL MCH (27-31) pg MCHC (32-36) % Plt Count (150-400) K/uL Neut % (Auto) (36-66) % Lymph % (Auto) (24-44) % [place] % (Auto) (2-6) % Eos % (Auto) (2-4) % Baso % (Auto) (0-1) % Sodium 147 (140-148) mmol/L Potassium 3.5 L (3.6-5.2) mmol/L Chloride 113 H (100-108) mmol/L Carbon Dioxide 26 (21-32) mmol/L Anion Gap 11.5 (5.0-14.0) mmol/L BUN 11 (7-18) mg/dL Creatinine 0.5 L (0.6-1.0) mg/dL Est Cr Clr Drug Dosing 133.24 mL/min Estimated GFR (MDRD) > 60 (>60) Glucose 85 (74-106) mg/dL Calcium 7.8 L (8.5-10.1) mg/dL Magnesium (1.8-2.4) mg/dL Urine Color Urine Appearance Urine pH (4.5-8.0) Ur Specific [place] (1.008-1.030) Urine Protein (NEGATIVE) mg/dL Urine Glucose (UA) (NEGATIVE) mg/dL Urine Ketones (NEGATIVE) mg/dL Urine Occult Blood (NEGATIVE) Urine Nitrite (NEGATIVE) Urine Bilirubin (NEGATIVE) Urine Urobilinogen (NORMAL) mg/dL Ur Leukocyte Esterase (NEGATIVE) Urine RBC (0-5) Urine WBC (0-5) Ur Epithelial Cells Amorphous Sediment Urine Bacteria Urine Mucus Urine Other Meds: Medications Generic Name Dose Route Start Last Admin Trade Name Freq PRN Reason Stop Dose Admin Sodium Chloride 10 ml 12/02/17 19:35 12/02/17 20:01 Saline Flush FLUSH 10 ml ASDIRECTED PRN Administration Keep Vein Open Discontinued Medications Generic Name Dose Route Start Last Admin Trade Name Freq PRN Reason Stop Dose Admin Multivitamins/Minerals 10 ml/ 1,016.2 mls @ 500 mls/hr 12/02/17 19:35 19:55 Thiamine HCl 200 mg/ Folic IV 12/02/17 21:36 500 mls/hr Acid 1 mg/ Magnesium Sulfate 2 ONETIME ONE Administration gm/ Dextrose/Lactated Ringer' s Departure - Departure Time of Disposition: 22:01 Disposition: Home, Self-Care 01 Condition: Poor Clinical Impression: Bariatric surgery status - Discharge Information Referrals: Abran Roca Sr, MD [Primary Care Provider] - Forms: ED Department Discharge Additional Instructions: Please keep your follow-up appointment with the [facility], call return to the emergency department worsening of symptoms - My Orders Last 24 Hours: My Active Orders 12/02/17 19:35 Peripheral IV Care [RC] . DIRECTED Sodium Chloride 0.9% [Saline Flush] 10 ml FLUSH ASDIRECTED PRN Peripheral IV Insertion Adult [OM.PC] Urgent - Assessment/Plan Last 24 Hours: My Active Orders 12/02/17 19:35 Peripheral IV Care [RC] . DIRECTED Sodium Chloride 0.9% [Saline Flush] 10 ml FLUSH ASDIRECTED PRN Peripheral IV Insertion Adult [OM.PC] Urgent Plan: Assessment Acuity = acute Site and laterality = weakness complicated patient with known history of gastrectomy Etiology = unclear etiology Manifestations = none Location of injury = Home Lab values = CBC unremarkable, hemoglobin low 11.2 consistent normochromic anemia probably related to dilution potassium slightly low at 3.5 consistent hypokalemia magnesium low at 1.6 consistent hypomagnesemia urinalysis unremarkable Plan She was given a banana bag while in the emergency department was able to sleep, called discussed case Dr. Grissom agreed with consultation [facility] for malabsorption she does have an appointment on Sunday This note was dictated using [employer] voice recognition software please call with any questions on syntax or jeferson.
[2017-12-02 21:58] VITALS: BP 123/81
== END 2017-12-02 22:14 | disposition home or self-care (01) ==
LOC: JP.ED 18:51
DX: R53.1 Weakness (principal); R10.9 Unspecified abdominal pain; Z98.84 Bariatric surgery status; J44.9 Chronic obstructive pulmonary disease, unspecified; I50.9 Heart failure, unspecified; F41.9 Anxiety disorder, unspecified; F32.9 Major depressive disorder, single episode, unspecified; D64.9 Anemia, unspecified; K21.9 Gastro-esophageal reflux disease without esophagitis; Z79.899 Other long term (current) drug therapy; Z91.018 Allergy to other foods; Z88.5 Allergy status to narcotic agent; Z91.09 Other allergy status, other than to drugs and biological substances; Z91.040 Latex allergy status
CPT/HCPCS: 36415; 80048; 81001; 83735; 85025; 96365; 96366; 99283; 99284; J3411; J3475; J7042; J7050; J3490

== ENCOUNTER 2017-12-14 09:06 | Inpatient (IN) | payer BC, MEDICAID ==
[2017-12-14] MEDS ORDERED: Acetaminophen 500 MG Tab PO ONE (09:30)
[2017-12-14] MEDS ORDERED: Scopolamine 1.5 MG Transdermal Patch TOP SCH (09:30)
[2017-12-14] MEDS ORDERED: Dextrose 5%-Lactated Ringers 1,000 ML IV SCH (10:00)
[2017-12-14] MEDS ORDERED: Acetaminophen 160 MG Tab,Disintegrating PO ONE (11:00)
[2017-12-14] MEDS ORDERED: Lidocaine 2% 100 MG/5 ML Syringe IVPUSH ONE (12:00)
[2017-12-14] MEDS ORDERED: Ropivacaine 40 ML, Dexamethasone 8 MG, EPINEPHrine 0.4 MG, Sodium Chloride 0.9% 37.6 ML NERVRT ONE ×4 (12:00)
[2017-12-14] MEDS ORDERED: cefOXitin 2 GM in Sodium Chloride 0.9% 50 ML IV ONE (12:00)
[2017-12-14] MEDS ORDERED: Ketamine 500 MG/5 ML MDV IV ONE (12:00)
[2017-12-14] MEDS ORDERED: fentaNYL 250 MCG/5 ML SDV ONE ×2 (12:10→12:54)
[2017-12-14] MEDS ORDERED: Ondansetron 4 MG/2 ML SDV ONE (12:11)
[2017-12-14] MEDS ORDERED: Rocuronium 50 MG/5 ML Vial ONE (12:11)
[2017-12-14] MEDS ORDERED: Dexamethasone 4 MG/ML SDV ONE (12:11)
[2017-12-14] MEDS ORDERED: Propofol 200 MG/20 ML SDV ONE (12:11)
[2017-12-14] MEDS ORDERED: Glycopyrrolate 0.2 MG/ML 5 ML MDV ONE (12:11)
[2017-12-14] MEDS ORDERED: Neostigmine Methylsulfate 1 MG/ML 5 ML Syringe ONE (12:11)
[2017-12-14] MEDS ORDERED: Albuterol/Ipratropium 3.0-0.5 MG/3 ML Neb Soln NEB ONE (12:15)
[2017-12-14] MEDS ORDERED: Bupivacaine 0.5%/EPINEPHrine 1:200,000 50 ML MDV ONE (12:41)
[2017-12-14] MEDS ORDERED: Meropenem 500 MG SDV ONE (12:59)
[2017-12-14] MEDS ORDERED: Levalbuterol HCl 1.25 MG/3 ML Neb INH PRN (14:54)
[2017-12-14] MEDS ORDERED: Albuterol/Ipratropium 3.0-0.5 MG/3 ML Neb Soln INH PRN (15:00)
[2017-12-14] MEDS: MVI, Adult with Vitamin K 10 ML, Thiamine 100 MG, Chromium/Copper/Mang/Selen/Zn 1 ML in... IV SCH ×4 (15:49)
[2017-12-14] MEDS: Albuterol/Ipratropium 3.0-0.5 MG/3 ML Neb Soln INH SCH ×2 (16:03→21:33)
[2017-12-14] MEDS: Sucralfate Suspension 1 GM/10 ML Cup PO SCH ×2 (16:05→21:33)
[2017-12-14] MEDS: ALPRAZolam 0.5 MG Tab PO PRN (16:06)
[2017-12-14] MEDS: Acetaminophen 160 MG Tab,Disintegrating PO SCH ×2 (16:07→21:33)
[2017-12-14] MEDS: cefOXitin 2 GM in Sodium Chloride 0.9% 50 ML IV SCH ×2 (17:11→23:48)
[2017-12-14] MEDS: Lidocaine 0.4%/D5W 2 GM/500 ML BAG IV SCH (20:13)
[2017-12-14] MEDS: Montelukast 10 MG Tab PO SCH (21:33)
[2017-12-14] MEDS: hydrALAZINE 10 MG Tab PO SCH (21:33)
[2017-12-14] MEDS: ClonazePAM 1 MG Tab PO SCH (21:33)
[2017-12-14] MEDS: Formoterol/Mometasone 200-5 MCG 8.8 GM Inhaler IH SCH (21:34)
[2017-12-14] MEDS: Dextrose 5%-Lactated Ringers 1,000 ML IV SCH (22:55)
[2017-12-15] MEDS: ALPRAZolam 0.5 MG Tab PO PRN ×3 (00:45→15:48)
[2017-12-15] MEDS ORDERED: Iohexol 647 MG/ML 50 ML SDV IVPUSH PRN (03:51)
[2017-12-15] MEDS: Ondansetron 4 MG/2 ML SDV IVPUSH PRN ×4 (04:25→19:46)
[2017-12-15] MEDS: cefOXitin 2 GM in Sodium Chloride 0.9% 50 ML IV SCH (05:13)
[2017-12-15] MEDS: Sucralfate Suspension 1 GM/10 ML Cup PO SCH ×4 (05:13→21:23)
[2017-12-15] MEDS: HYDROmorphone 1 MG/ML Syringe IVPUSH PRN ×4 (05:13→18:51)
[2017-12-15] MEDS: Acetaminophen 160 MG Tab,Disintegrating PO SCH ×4 (05:13→21:23)
[2017-12-15] MEDS: hydrALAZINE 10 MG Tab PO SCH ×3 (05:13→21:23)
[2017-12-15] MEDS: Dextrose 5%-Lactated Ringers 1,000 ML IV SCH (06:34)
[2017-12-15] MEDS: Formoterol/Mometasone 200-5 MCG 8.8 GM Inhaler IH SCH ×2 (07:36→21:22)
[2017-12-15] MEDS: Albuterol/Ipratropium 3.0-0.5 MG/3 ML Neb Soln INH SCH ×4 (07:36→21:20)
[2017-12-15] MEDS: Lactobacillus Rhamnosus GG (Probiotic) Cap PO SCH (09:06)
[2017-12-15] MEDS: SCOPOLAMINE PATCH CHECK TOP SCH (09:07)
[2017-12-15] MEDS: Cetirizine 10 MG Tab PO SCH (09:07)
[2017-12-15] MEDS: Escitalopram 10 MG Tab PO SCH (09:07)
[2017-12-15] MEDS: Lidocaine 0.4%/D5W 2 GM/500 ML BAG IV SCH (10:01)
[2017-12-15] MEDS: MVI, Adult with Vitamin K 10 ML, Thiamine 100 MG, Chromium/Copper/Mang/Selen/Zn 1 ML in... IV SCH ×4 (15:00)
[2017-12-15] MEDS ORDERED: Acetaminophen Soln 650 MG/20.3 ML UD Cup ONE (16:08)
[2017-12-15] MEDS: LORazepam 2 MG/ML SDV IVPUSH PRN (21:11)
[2017-12-15] MEDS: Metoclopramide 10 MG/2 ML SDV IVPUSH SCH (21:11)
[2017-12-15] MEDS: ClonazePAM 1 MG Tab PO SCH (21:23)
[2017-12-15] MEDS: Montelukast 10 MG Tab PO SCH (21:23)
[2017-12-16] MEDS: HYDROmorphone 1 MG/ML Syringe IVPUSH PRN ×5 (00:03→20:21)
[2017-12-16] MEDS: Dextrose 5%-Lactated Ringers 1,000 ML IV SCH ×2 (01:29→10:10)
[2017-12-16] MEDS: LORazepam 2 MG/ML SDV IVPUSH PRN ×2 (02:31→20:24)
[2017-12-16] MEDS: Metoclopramide 10 MG/2 ML SDV IVPUSH SCH ×4 (02:32→20:31)
[2017-12-16] MEDS: Sucralfate Suspension 1 GM/10 ML Cup PO SCH ×4 (05:19→22:04)
[2017-12-16] MEDS: hydrALAZINE 10 MG Tab PO SCH ×3 (05:19→22:00)
[2017-12-16] MEDS: Acetaminophen 160 MG Tab,Disintegrating PO SCH ×4 (05:19→21:55)
[2017-12-16] MEDS ORDERED: Meropenem 500 MG SDV ONE (06:30)
[2017-12-16] MEDS ORDERED: Lidocaine 1% with EPINEPHrine 1:100,000 50 ML MDV ONE (06:30)
[2017-12-16] MEDS ORDERED: Bupivacaine 0.5% 50 ML MDV ONE (06:30)
[2017-12-16] MEDS ORDERED: Ropivacaine 40 ML, Dexamethasone 8 MG, EPINEPHrine 0.4 MG, Sodium Chloride 0.9% 37.6 ML NERVRT ONE ×4 (07:15)
[2017-12-16] MEDS ORDERED: Lidocaine 1% 2 ML ONE (07:32)
[2017-12-16] MEDS: Albuterol/Ipratropium 3.0-0.5 MG/3 ML Neb Soln INH SCH ×4 (07:42→20:31)
[2017-12-16] MEDS: Formoterol/Mometasone 200-5 MCG 8.8 GM Inhaler IH SCH ×3 (07:42→20:31)
[2017-12-16] MEDS ORDERED: Propofol 200 MG/20 ML SDV ONE (07:45)
[2017-12-16] MEDS: SCOPOLAMINE PATCH CHECK TOP SCH (09:42)
[2017-12-16] MEDS: Cetirizine 10 MG Tab PO SCH (09:45)
[2017-12-16] MEDS: Lactobacillus Rhamnosus GG (Probiotic) Cap PO SCH (09:45)
[2017-12-16] MEDS: Escitalopram 10 MG Tab PO SCH (09:45)
[2017-12-16] MEDS: Magnesium Sulfate/Water 2 GM in Premix Bag 1 BAG IV SCH ×3 (10:37→21:57)
[2017-12-16] MEDS: Ondansetron 4 MG/2 ML SDV IVPUSH PRN ×2 (11:50→19:15)
[2017-12-16] MEDS: MVI, Adult with Vitamin K 10 ML, Thiamine 100 MG, Chromium/Copper/Mang/Selen/Zn 1 ML in... IV SCH ×4 (17:52)
[2017-12-16] MEDS: Montelukast 10 MG Tab PO SCH (20:34)
[2017-12-16] MEDS: ClonazePAM 1 MG Tab PO SCH (20:40)
[2017-12-17] MEDS: LORazepam 2 MG/ML SDV IVPUSH PRN ×2 (00:11→14:05)
[2017-12-17] MEDS: Ondansetron 4 MG/2 ML SDV IVPUSH PRN (00:17)
[2017-12-17] MEDS: Dextrose 5%-Lactated Ringers 1,000 ML IV SCH ×3 (00:37→23:47)
[2017-12-17] MEDS: Metoclopramide 10 MG/2 ML SDV IVPUSH SCH ×4 (02:12→20:10)
[2017-12-17] MEDS: Magnesium Sulfate/Water 2 GM in Premix Bag 1 BAG IV SCH ×4 (04:26→21:34)
[2017-12-17] MEDS: Acetaminophen 160 MG Tab,Disintegrating PO SCH ×4 (04:27→21:35)
[2017-12-17] MEDS: Albuterol/Ipratropium 3.0-0.5 MG/3 ML Neb Soln INH SCH ×4 (07:10→21:31)
[2017-12-17] MEDS: Formoterol/Mometasone 200-5 MCG 8.8 GM Inhaler IH SCH ×2 (07:13→20:12)
[2017-12-17] MEDS: hydrALAZINE 10 MG Tab PO SCH ×3 (07:47→21:32)
[2017-12-17] MEDS: Sucralfate Suspension 1 GM/10 ML Cup PO SCH ×4 (07:47→21:34)
[2017-12-17] MEDS: HYDROmorphone 1 MG/ML Syringe IVPUSH PRN ×2 (07:54→10:30)
--- NOTE | 2017-12-17 08:54 | PN ---
DATE OF SERVICE: 12/17/2017 SUBJECTIVE: She is postoperative day #2. She was scheduled for delayed primary closure, but has had persistent nausea with vomiting. She had an emesis of 375 mL. Her percutaneous endoscopic jejunostomy tube was stopped at midnight for delayed primary closure. She states that her nausea was less after the J-tube feedings were discontinued. Reports pain is controlled, has no other questions or concerns. OBJECTIVE: GENERAL: Shamika Durán is a 42-year-old female. VITAL SIGNS: Height is 5 feet 5 inches, weight is 197 pounds. TPR is 99.5, 99, 18; blood pressure is 95/49, and O2 is 94% on O2. HEENT: Negative. NECK: Supple. HEART: Regular rate and rhythm. LUNGS: Clear. ABDOMEN: Dressings dry and intact. Abdominal binder is on. Percutaneous endoscopic jejunostomy tube is secured. EXTREMITIES: SCDs are on. ASSESSMENT: Laparotomy with lysis of adhesions and formation of percutaneous jejunostomy tube, small-bowel resection to facilitate movement of the Vivek limb into position and placement of Interceed mesh, for malnutrition possible partial small bowel obstruction at present Vivek limb passed behind colon. Date of surgery 12/14/2017. PLAN: 1. Continue jejunostomy feedings at 60 mL per hour on same flushes, water flushes. 2. Upper GI, this morning, with dilute barium with Radiology present. 3. Lactated Ringer's with MultiVites to run over 4 hours. 4. Good pulmonary toilet. 5. We will evaluate p.r.n. or in a.m. Shavon Siddiqi PA-C /[id number]
[2017-12-17] MEDS ORDERED: MAGNESIUM SULFATE IV ONE ×5 (09:00)
[2017-12-17] MEDS ORDERED: MVI IV ONE ×5 (09:00)
[2017-12-17] MEDS ORDERED: THIAMINE IV ONE ×5 (09:00)
[2017-12-17] MEDS ORDERED: [UNRECOGNIZED DRUG - OTHER] IV ONE ×5 (09:00)
[2017-12-17] MEDS ORDERED: VITAMIN K IV ONE ×5 (09:00)
--- NOTE | 2017-12-17 09:19 | CR ---
Contrast within the large bowel. Large amount of stool within the right-sided colon. No dilated loops of large or small bowel.
--- NOTE | 2017-12-17 09:20 | CR ---
Postsurgical change. There is a tube left mid abdomen. Contrast within upper small bowel loops with a ir-fluid levels. Mild distention. Contrast within the large bowel.
[2017-12-17] MEDS ORDERED: Iohexol 647 MG/ML 50 ML SDV PO SCH (10:30)
[2017-12-17] MEDS: Lactobacillus Rhamnosus GG (Probiotic) Cap PO SCH (11:29)
[2017-12-17] MEDS: SCOPOLAMINE PATCH CHECK TOP SCH (11:30)
[2017-12-17] MEDS: Cetirizine 10 MG Tab PO SCH (11:30)
[2017-12-17] MEDS: Escitalopram 10 MG Tab PO SCH (11:32)
--- NOTE | 2017-12-17 11:40 | CR ---
Limited upper GI. Findings: Upright images only taken. Isovue contrast ingestion orally. Approximately 3 sips. Contrast is at the GE junction. No gross evidence for leakage. Multiple air-fluid levels. Mild distention of small bowel loops up to 3.9 cm with contrast opacifying them. 5 minute delay images obtained. On thes e images the small bowel loops near the GE junction aren't dilated. No contrast passed the left mid a bdomen. Findings can indicate proximal obstruction or ileus.
--- NOTE | 2017-12-17 11:48 | PN ---
DATE OF SERVICE: 12/16/2017 The patient has been afebrile with stable vital signs. She developed some emesis of what appeared to be saliva and some ingested food. The upper GI endoscope showed some retained fluid and old food as well. It appears, she probably has some sort of obstruction in the small bowel, perhaps, at the recent anastomosis. The scope was not able to get down that far, at least, to visualize the anastomosis due to the ingested semi-solid food present. Otherwise, she is tolerating the tube feedings well. I think, she has probably developed some edema at that anastomosis. We will try a step-2 diet today. If that is not successful, we will probably need to revise the entire jejunojejunostomy tomorrow. She has a poor peripheral venous access and, at this point, we will likely get a central line in as well. If she is able to resume oral intake, then we will do the delayed primary closure of the abdominal incision tomorrow. No major problems are noted on the labs. Her magnesium is mildly low and that will be supplemented today. We will restart the tube feedings. Jese Grissom MD /[id number]
--- NOTE | 2017-12-17 11:51 | PN ---
DATE OF SERVICE: 12/15/2017 The patient has been afebrile with stable vital signs. No major problems have been noted overnight. Pain control has been fairly good, needing only one IV push Dilaudid dose. We will start the J-tube feedings today, back down the IV rate, and plan will be to proceed with a delayed primary closure tomorrow. We will add a TAP block once again at the time of the closure. Jese Grissom MD /[id number]
[2017-12-17] MEDS ORDERED: Ropivacaine 40 ML, Dexamethasone 8 MG, EPINEPHrine 0.4 MG, Sodium Chloride 0.9% 37.6 ML NERVRT ONE ×4 (12:00)
[2017-12-17] MEDS ORDERED: Loperamide 1 MG/5 ML Soln 5 ML UD Cup PO PRN (14:56)
--- NOTE | 2017-12-17 14:58 | OR ---
DATE OF PROCEDURE: 12/16/2017 PREOPERATIVE DIAGNOSIS: Nausea and vomiting. POSTOPERATIVE DIAGNOSIS: Nausea and vomiting with retained food in Vivek limb suggestive of edema/partial obstruction and recent small-bowel anastomosis. OPERATION: Upper gastrointestinal endoscopy. ANESTHESIA: IV sedation. INDICATION FOR PROCEDURE: Overnight, the patient developed problems with some nausea and vomiting. Plan is to proceed with upper GI endoscopy with dilation or biopsies as indicated. Potential risks including bleeding and perforation were discussed, and the patient wishes to proceed. DETAILS OF PROCEDURE: The patient was taken to the operating room and placed in a left lateral decubitus position. IV sedation was administered, after which the upper GI endoscope was passed orally through the length of the esophagus and into the area of the esophagojejunostomy. This was widely patent with no significant inflammation at this point. As one passed into the Vivek limb, there is quite a bit of saliva-type material mixed with some semisolid ingested food. No bile or tube feedings were evident. The scope could be passed around 50 cm, but beyond that we were unable to visualize things satisfactory. Much of the fluid was evacuated and the procedure was then concluded. The patient presumably had some edema and partial obstruction of the recent small bowel anastomosis, we will put her on step-2 diet today of puree liquid and if that does not open up, we will probably need to think in terms of revising the entire Vivek-en-Y anatomy tomorrow. Jese Grissom MD /[id number]
[2017-12-17] MEDS: MVI, Adult with Vitamin K 10 ML, Thiamine 100 MG, Chromium/Copper/Mang/Selen/Zn 1 ML in... IV SCH ×4 (17:00)
[2017-12-17] MEDS: HYDROmorphone/Normal Saline 15 MG/30 ML PCA IV PRN (18:20)
[2017-12-17] MEDS ORDERED: Magnesium Citrate Solution 296 ML Bottle JTUBE ONE (18:43)
[2017-12-17] MEDS: ClonazePAM 1 MG Tab PO SCH (21:31)
[2017-12-17] MEDS: Montelukast 10 MG Tab PO SCH (21:34)
[2017-12-18] MEDS: Metoclopramide 10 MG/2 ML SDV IVPUSH SCH ×4 (02:00→19:24)
[2017-12-18] MEDS: LORazepam 2 MG/ML SDV IVPUSH PRN (02:57)
[2017-12-18] MEDS: Acetaminophen 160 MG Tab,Disintegrating PO SCH ×4 (04:00→23:34)
[2017-12-18] MEDS: hydrALAZINE 10 MG Tab PO SCH ×3 (06:00→21:59)
[2017-12-18] MEDS: Albuterol/Ipratropium 3.0-0.5 MG/3 ML Neb Soln INH SCH ×4 (07:00→21:58)
[2017-12-18] MEDS: Formoterol/Mometasone 200-5 MCG 8.8 GM Inhaler IH SCH ×2 (07:00→21:58)
[2017-12-18] MEDS ORDERED: Meropenem 500 MG SDV ONE (07:00)
--- NOTE | 2017-12-18 08:34 | OR ---
DATE OF PROCEDURE: 12/14/2017 PREOPERATIVE DIAGNOSIS: Malnutrition. POSTOPERATIVE DIAGNOSES: 1. Malnutrition. 2. Possible partial small bowel obstruction at the point where Vivek limb passed behind the colon. OPERATIVE PROCEDURE: Laparotomy with lysis of adhesions: 1. Formation of tube jejunostomy (28977). 2. Small-bowel resection to facilitate moving of the Vivek limb into an antecolic position (86779). 3. Placement of Interceed mesh to limit recurrent adhesion formation between pelvic and abdominal wall and underlying viscera (60888). ANESTHESIA: General. INDICATIONS FOR PROCEDURE: The patient presents after evaluation at the [facility] with recommendation for placement of a feeding tube. The patient has a complex abdominal surgery history, along with some ongoing problems with nausea and vomiting. Plan is to proceed with a limited laparotomy, which will facilitate lysis of adhesions and identification of any additional problems that might be contributing to her symptoms and then placement of a tube jejunostomy. Potential risks of the procedure including bleeding, infection, leaks from various GI tract closures, problems with further bowel obstruction or chronic abdominal pain following the procedure were all reviewed, and the patient wishes to proceed. DETAILS OF PROCEDURE: The patient was taken to the operating room and placed in a supine position. After general endotracheal anesthesia was induced, the abdomen was prepped and draped, and a Rodgers catheter was inserted. An upper midline incision from the umbilicus roughly a handsbreadth up towards the xiphoid was made and carried down through the full thickness of the abdominal wall. Upon entering the peritoneal cavity, the patient was noted to have quite a bit in the way of adhesions present around the area of the small bowel, particularly in the area of the jejunojejunostomy. These may have been potentially contributing to some of her symptoms. The patient's Vivek limb was noted to be of retrocolic approach, and this appeared to be quite tight and potentially problematic in terms of some chronic nausea or partial obstructive symptoms. Given this, we opted not to entirely redo the esophagojejunostomy but divide the small bowel at a point a little bit inferior to the point where it came through the retrocolic tunnel. After that had been freed up of any attachments, approximately a few centimeters of this bowel was then resected, which then allowed adequate mobility of the small bowel to be brought up in an antecolic position, maintaining its mesentery in the retrocolic position. Both ends of the small bowel had good blood supply, and there was a wide window around the transverse colon, which would not be putting any occlusive pressure on the colon. A [id number] anastomosis was then accomplished with internal firing of the Endo DRISS 60 mm arellano load and the common opening closed transversely with the purple load and the angles were anastomosed and mesenteric defect was then approximated to the extent needed with a 3-0 Vicryl stitch. Following this, roughly 20 cm distal to the original jejunojejunostomy, a tube jejunostomy was then created. A small stab wound just to the left of the incision was made, and a 14- Slovak Rodgers catheter was brought down through that opening. A standard Witzel-type jejunostomy was accomplished with initial pursestring stitch around the point where the catheter entered the small bowel being placed with 3-0 Vicryl and then several Witzel-type sutures being placed in the seromuscular plane around and proximal to that. This was then brought up through the abdominal wall, and four sutures to the point where the tube entered the abdominal wall were then placed between the small bowel and abdominal wall as well, and the catheter at that point had been injected with 3 mL to provide a small balloon inflation but without occlusion of the small bowel. At that point, no further problems were noted. The abdomen was irrigated with antibiotic-containing saline solution. The incision was felt to be at risk for development of adhesions into the pelvic and abdominal wall, and Interceed mesh was then placed underneath the incision and toward the abdominal wall to keep the viscera away from the abdominal wall during the healing phase and limit recurrent adhesion formation. The midline fascia was then approximated with #2 Vicryl stitch, and the skin and subcutaneous tissue were felt to be at high risk for wound infection, given the large adipose layer, and were packed open for a planned delayed primary closure. The patient was taken to the recovery room in satisfactory condition. Jese Grissom MD /[id number]
[2017-12-18] MEDS ORDERED: Dexamethasone 4 MG/ML SDV ONE (08:54)
[2017-12-18] MEDS ORDERED: Succinylcholine 200 MG/10 ML MDV ONE (08:54)
[2017-12-18] MEDS ORDERED: Rocuronium 50 MG/5 ML Vial ONE (08:54)
[2017-12-18] MEDS ORDERED: Ondansetron 4 MG/2 ML SDV ONE (08:54)
[2017-12-18] MEDS ORDERED: Propofol 200 MG/20 ML SDV ONE (08:54)
[2017-12-18] MEDS ORDERED: Neostigmine Methylsulfate 1 MG/ML 5 ML Syringe ONE (08:54)
[2017-12-18] MEDS ORDERED: Glycopyrrolate 0.2 MG/ML 5 ML MDV ONE (08:54)
[2017-12-18] MEDS ORDERED: Ropivacaine 40 ML, Dexamethasone 8 MG, EPINEPHrine 0.4 MG, Sodium Chloride 0.9% 37.6 ML NERVRT ONE ×4 (09:30)
[2017-12-18] MEDS ORDERED: Meropenem 500 MG in Sodium Chloride 0.9% 50 ML IV ONE (09:30)
[2017-12-18] MEDS ORDERED: Lidocaine 2% 100 MG/5 ML Syringe IVPUSH ONE (09:30)
[2017-12-18] MEDS ORDERED: Ketamine 500 MG/5 ML MDV IV ONE (09:30)
[2017-12-18] MEDS ORDERED: Lidocaine 1% with EPINEPHrine 1:100,000 50 ML MDV ONE (10:21)
[2017-12-18] MEDS ORDERED: Bupivacaine 0.5% 50 ML MDV ONE (10:21)
[2017-12-18] MEDS ORDERED: fentaNYL 250 MCG/5 ML SDV ONE (11:11)
[2017-12-18] MEDS ORDERED: Labetalol 20 MG/4 ML Syringe ONE (11:37)
[2017-12-18] MEDS: Sucralfate Suspension 1 GM/10 ML Cup PO SCH ×4 (12:26→21:58)
[2017-12-18] MEDS: Escitalopram 10 MG Tab PO SCH ×2 (12:27→15:08)
[2017-12-18] MEDS: Lactobacillus Rhamnosus GG (Probiotic) Cap PO SCH ×2 (12:27→15:05)
[2017-12-18] MEDS: SCOPOLAMINE PATCH CHECK TOP SCH (12:27)
[2017-12-18] MEDS: Cetirizine 10 MG Tab PO SCH (12:28)
[2017-12-18] MEDS: Magnesium Sulfate/Water 2 GM in Premix Bag 1 BAG IV SCH (12:35)
[2017-12-18] MEDS: Dextrose 5%-Lactated Ringers 1,000 ML IV SCH ×2 (13:06→15:06)
[2017-12-18] MEDS: Lidocaine 0.4%/D5W 2 GM/500 ML BAG IV SCH (13:07)
[2017-12-18] MEDS ORDERED: hydrOXYzine HCl 100 MG/2 ML SDV IM PRN (14:42)
[2017-12-18] MEDS: Ondansetron 4 MG/2 ML SDV IVPUSH PRN ×2 (14:51→17:55)
[2017-12-18] MEDS: MVI, Adult with Vitamin K 10 ML, Thiamine 100 MG, Chromium/Copper/Mang/Selen/Zn 1 ML in... IV SCH ×4 (17:55)
[2017-12-18] MEDS: Meropenem 500 MG in Sodium Chloride 0.9% 50 ML IV SCH ×2 (17:56→21:59)
[2017-12-18] MEDS: Docusate Sodium Liquid 100 MG/10 ML UD Cup JTUBE SCH ×2 (18:03→21:58)
[2017-12-18] MEDS: HYDROmorphone/Normal Saline 15 MG/30 ML PCA IV PRN (19:04)
[2017-12-18] MEDS: ClonazePAM 1 MG Tab PO SCH (21:58)
[2017-12-18] MEDS: Montelukast 10 MG Tab PO SCH (21:58)
[2017-12-18] MEDS ORDERED: Acetaminophen 1,000 MG in Premix Bag 1 BAG IV ONE (22:00)
[2017-12-19] MEDS: Dextrose 5%-Lactated Ringers 1,000 ML IV SCH ×4 (01:33→21:43)
[2017-12-19] MEDS: Metoclopramide 10 MG/2 ML SDV IVPUSH SCH ×4 (02:13→20:39)
[2017-12-19] MEDS ORDERED: Iohexol 647 MG/ML 50 ML SDV PO STA (03:18)
[2017-12-19] MEDS: Acetaminophen 500 MG Tab PO SCH ×4 (04:36→21:41)
[2017-12-19] MEDS: Meropenem 500 MG in Sodium Chloride 0.9% 50 ML IV SCH ×2 (04:36→11:21)
[2017-12-19] MEDS: Ondansetron 4 MG/2 ML SDV IVPUSH PRN ×2 (04:36→11:33)
[2017-12-19] MEDS: hydrALAZINE 10 MG Tab PO SCH ×3 (05:04→21:40)
[2017-12-19] MEDS: Sucralfate Suspension 1 GM/10 ML Cup PO SCH ×4 (05:04→21:40)
[2017-12-19] MEDS: Scopolamine 1.5 MG Transdermal Patch TRDERM SCH (05:08)
[2017-12-19] MEDS: Formoterol/Mometasone 200-5 MCG 8.8 GM Inhaler IH SCH ×2 (07:14→20:38)
[2017-12-19] MEDS: Albuterol/Ipratropium 3.0-0.5 MG/3 ML Neb Soln INH SCH ×4 (07:14→20:39)
[2017-12-19] MEDS: Lidocaine 0.4%/D5W 2 GM/500 ML BAG IV SCH (07:46)
--- NOTE | 2017-12-19 08:54 | PCM.SN ---
- Free Text/Narrative Note: Subjective: Shamika Durán is a 42 yo F pod#4 s/p gastrostomy tube placement. Initially scheduled for delayed primary closure earlier this week, but that was delayed due to persistent nausea with vomiting. She continues to be nauseous, but has not been vomiting, thus DPC has been rescheduled for tomorrow (12/20). She tolerated her tube feeding last night, though she states it did exacerbate her nausea, as does eating ice chips. We have her on colase through her G-tube and she is also on reglan to attempt to get her bowels moving and rid her of some of the excess barium, which may be worsening her nausea. She also has a scopalmine patch in place. She had a fever to 102.9 last night, which was alleviated with IV tylenol. Objective: Vital signs: febrile to 102.9 last night, otherwise WNL Ins/outs: Net 2.2L Lungs: clear to auscultation bilaterally Heart: regular rate and rhythm Extremities: SCDs are on; no edema Abdomen: dressings dry and intact. Abdominal binder is on. Percutaneous endoscopic jejunostomy tube is secured. Labs: -CBC WNL -CMP shows elevation of AST, ALT, and alk phos Assessment/Plan: 12/14: Laparotomy with lysis of adhesions and formation of percutaneous jejunostomy tube, small-bowel resection to facilitate movement of the Vivek limb into position and placement of Interceed mesh, for malnutrition possible partial SBO at present Vivek limb passed behind colon. General:Uncomfortable but with no acute complaints. Manage nausea today so we can do delayed primary closure tomorrow (12/20). Pain: She says her pain is at a 5/10, but the nausea is more bothersome than anything. Pt requiring scheduled Tylenol at 1g q6hr. She's also on a lidocaine infusion and used 21 bumps of her PORTFOLIO STRATEGIST. Nutrition: tolerated tube feeding last night (with nausea); increase to 50mL/ hour with 20mL flush and change to full liquids. Lines/tubes: G-tube functioning well. Rodgers in place, plan for removal after DPC tomorrow. Nausea 2/2 retained barium, stunned bowels from surgery, etc; hasn't had bowel movement yet -continue reglan and colase -continue scopalmine patch -give dose of mag citrate Other: -NPO after midnight for DPC -good pulmonary toilet -ambulate as able -evaluate PRN or in AM
[2017-12-19] MEDS ORDERED: Magnesium Citrate Solution 296 ML Bottle PO ONE (09:00)
[2017-12-19] MEDS: Docusate Sodium Liquid 100 MG/10 ML UD Cup JTUBE SCH ×2 (10:37→20:38)
[2017-12-19] MEDS: SCOPOLAMINE PATCH CHECK TOP SCH (10:37)
[2017-12-19] MEDS: Escitalopram 10 MG Tab PO SCH (10:38)
[2017-12-19] MEDS: Cetirizine 10 MG Tab PO SCH (10:38)
[2017-12-19] MEDS: Lactobacillus Rhamnosus GG (Probiotic) Cap PO SCH (10:39)
--- NOTE | 2017-12-19 11:07 | CR ---
Limited upper GI. Findings: Contrast is evident with air-fluid levels at the expected recent postoperative site in the small bowel. There is distention of these bowel loops. Contrast however does pass into the distal loo ps of the small bowel on delayed images.
[2017-12-19] MEDS: HYDROmorphone/Normal Saline 15 MG/30 ML PCA IV PRN (15:39)
[2017-12-19] MEDS ORDERED: Naloxone 0.4 MG/ML SDV IVPUSH PRN (17:55)
[2017-12-19] MEDS ORDERED: Lactated Ringers 500 ML IV ONE (18:00)
[2017-12-19] MEDS: MVI, Adult with Vitamin K 10 ML, Thiamine 100 MG, Chromium/Copper/Mang/Selen/Zn 1 ML in... IV SCH ×4 (18:13)
[2017-12-19] MEDS: ClonazePAM 1 MG Tab PO SCH (20:39)
[2017-12-19] MEDS: Montelukast 10 MG Tab PO SCH (20:40)
[2017-12-20] MEDS: Metoclopramide 10 MG/2 ML SDV IVPUSH SCH ×4 (02:20→21:23)
[2017-12-20] MEDS: Acetaminophen 500 MG Tab PO SCH ×4 (04:09→21:22)
[2017-12-20] MEDS: hydrALAZINE 10 MG Tab PO SCH ×3 (05:09→21:23)
[2017-12-20] MEDS: Sucralfate Suspension 1 GM/10 ML Cup PO SCH ×4 (05:10→21:24)
[2017-12-20] MEDS: Dextrose 5%-Lactated Ringers 1,000 ML IV SCH (05:34)
[2017-12-20] MEDS ORDERED: Bupivacaine 0.5% 50 ML MDV ONE (06:32)
[2017-12-20] MEDS ORDERED: Lidocaine 1% with EPINEPHrine 1:100,000 50 ML MDV ONE (06:32)
[2017-12-20] MEDS ORDERED: Meropenem 500 MG SDV ONE (06:32)
[2017-12-20] MEDS ORDERED: fentaNYL 100 MCG/2 ML SDV ONE (07:10)
[2017-12-20] MEDS ORDERED: Propofol 200 MG/20 ML SDV ONE ×2 (07:10→07:45)
[2017-12-20] MEDS ORDERED: Midazolam 1 MG/ML 2 ML SDV ONE (07:10)
[2017-12-20] MEDS ORDERED: Ropivacaine 40 ML, Dexamethasone 8 MG, EPINEPHrine 0.4 MG, Sodium Chloride 0.9% 37.6 ML NERVRT ONE ×4 (07:15)
[2017-12-20] MEDS ORDERED: Ondansetron 4 MG/2 ML SDV ONE (07:18)
[2017-12-20] MEDS: Formoterol/Mometasone 200-5 MCG 8.8 GM Inhaler IH SCH ×3 (07:20→21:21)
[2017-12-20] MEDS: Albuterol/Ipratropium 3.0-0.5 MG/3 ML Neb Soln INH SCH ×4 (07:20→21:42)
--- NOTE | 2017-12-20 07:25 | PCM.SN ---
- Free Text/Narrative Note: Subjective: Shamika Durán is a 42yo F POD#6 s/p lysis of adhesions and formation of percutaneous jejunostomy tube who comes to the OR today for delayed primary closure of her incisions. This was initially delayed due to persistent nausea and vomiting, which has remitted some with the addition of mag citrate and with decreased use of her MOTOR VEHICLE EXAMINER. No acute overnight events. Abdominal pain currently --she says this is sharp pain that is primarily incisional, but is present diffusely throughout the abdomen. Tube feedings going well. Has not had a bowel movement yet. Objective: Vital signs: remains afebrile with vitals WNL Ins/outs: NET 4.3L General: uncomfortable, but with no acute complaints and in no acute distress Lungs: upper lobes clear to auscultation bilaterally, lower lobes with distant breath sounds bilaterally Heart: regular rate and rhythm with 3/6 holosystolic murmur at LUSB Extremities:minimal non-pitting edema to mid jackson Abdomen: bowel sounds present, some distension, tender to palpation throughout Lines: IV, J-tube Assessment/Plan: 42 yo F with complex past medical history including providers from [facility], [facility], and [facility] PD#6 from J-tube placement for malnutrition and lysis of adhesions causing SBO with persistent nausea and vomitting; doing better today, but still complains of incisional pain and nausea. Nutrition: continues to tolerate tube feeds, J-tube functioning well. Continue 50mL/hour with 20mL flushes q8hr. Nausea 2/2 retained barium, post-op ileus from surgery and pain meds; hasn't had bowel movement yet; nausea greatly improved from yesterday -continue reglan and colase -continue scopalmine patch -continue mag citrate -consider suppository General: -continue pulmonary hygiene -encourage ambulation -evaluate PRN or in AM
[2017-12-20] MEDS: Docusate Sodium Liquid 100 MG/10 ML UD Cup JTUBE SCH ×2 (09:15→21:22)
[2017-12-20] MEDS: Cetirizine 10 MG Tab PO SCH (09:17)
[2017-12-20] MEDS: SCOPOLAMINE PATCH CHECK TOP SCH (09:17)
[2017-12-20] MEDS: Escitalopram 10 MG Tab PO SCH (09:18)
[2017-12-20] MEDS: Lactobacillus Rhamnosus GG (Probiotic) Cap PO SCH (09:18)
[2017-12-20] MEDS: Erythromycin Ethylsuccinate Susp 400 MG/5 ML 100 ML Bottle JTUBE SCH ×3 (10:04→21:25)
[2017-12-20] MEDS: Magnesium Hydroxide 400 MG/5 ML Susp 30 ML Cup JTUBE SCH ×2 (10:04→21:22)
[2017-12-20] MEDS: Bisacodyl 10 MG Supp RECTAL SCH ×2 (10:04→21:28)
[2017-12-20] MEDS: HYDROmorphone/Normal Saline 15 MG/30 ML PCA IV PRN (15:21)
[2017-12-20] MEDS: MVI, Adult with Vitamin K 10 ML, Thiamine 100 MG, Chromium/Copper/Mang/Selen/Zn 1 ML in... IV SCH ×4 (17:52)
[2017-12-20] MEDS: Montelukast 10 MG Tab PO SCH (21:26)
[2017-12-20] MEDS: ClonazePAM 1 MG Tab PO SCH (21:42)
[2017-12-21] MEDS: Metoclopramide 10 MG/2 ML SDV IVPUSH SCH ×4 (01:21→20:14)
[2017-12-21] MEDS: Acetaminophen 500 MG Tab PO SCH ×4 (03:45→21:45)
[2017-12-21] MEDS: traMADol 50 MG Tab PO PRN (03:46)
[2017-12-21] MEDS: Dextrose 5%-Lactated Ringers 1,000 ML IV SCH ×2 (03:48→13:26)
[2017-12-21] MEDS: Erythromycin Ethylsuccinate Susp 400 MG/5 ML 100 ML Bottle JTUBE SCH ×4 (05:44→21:45)
[2017-12-21] MEDS: Sucralfate Suspension 1 GM/10 ML Cup PO SCH ×4 (05:45→21:44)
[2017-12-21] MEDS: hydrALAZINE 10 MG Tab PO SCH ×3 (05:45→21:44)
[2017-12-21] MEDS: Formoterol/Mometasone 200-5 MCG 8.8 GM Inhaler IH SCH ×2 (07:21→21:43)
[2017-12-21] MEDS: Albuterol/Ipratropium 3.0-0.5 MG/3 ML Neb Soln INH SCH ×4 (07:21→22:14)
[2017-12-21] MEDS ORDERED: Magnesium Citrate Solution 296 ML Bottle JTUBE ONE (09:00)
[2017-12-21] MEDS: Bisacodyl 10 MG Supp RECTAL SCH (09:03)
[2017-12-21] MEDS: SCOPOLAMINE PATCH CHECK TOP SCH (09:03)
[2017-12-21] MEDS: Magnesium Sulfate/Water 2 GM in Premix Bag 1 BAG IV SCH ×3 (09:12→22:37)
[2017-12-21] MEDS: Magnesium Hydroxide 400 MG/5 ML Susp 30 ML Cup JTUBE SCH (09:17)
[2017-12-21] MEDS: Cetirizine 10 MG Tab PO SCH (09:19)
[2017-12-21] MEDS: Escitalopram 10 MG Tab PO SCH (09:19)
[2017-12-21] MEDS: Lactobacillus Rhamnosus GG (Probiotic) Cap PO SCH (09:19)
--- NOTE | 2017-12-21 09:28 | PCM.SN ---
- Free Text/Narrative Note: Shamika Durán is a 42yo F POD#7 s/p lysis of adhesions and formation of percutaneous jejunostomy tube and POD#1s/p delayed primary closure with a complex past medical history managed primarily by Abran Roca, as well as physicians from the [facility] and from [facility] in [place]. Subjective: Shamika continues to complain of 9/10, sharp abdominal pain, primarily at the incision. She had a small soft bowel movement yesterday, which she says made her pain and nausea worse. She continues to struggle with nausea. We have her on a comprehensive bowel regimen including, but not limited to, erythromycin, reglan, colase, mag citrate, etc (see MAR for more), and are hoping that further bowel movements will assist in resolving her pain and nausea. Objective: Ins/outs: -Net: 3L -Hb: 8.5 -M.7 Vital signs: vitals WNL (though slightly hypertensive), remains afebrile General: uncomfortable, but in no acute distress Heart: harsh 3/6 holosystolic murmur with split S2 heard on inspiration and expiration, loudest at LUSB, regular rate and rhythm Lungs: clear to auscultation bilaterally Abdomen: tender to palpation throughout; incision clean, dry, and intact Extremities: mild non-pitting edema, SCDs in place Assessment: 1. POD#7 s/p lysis of adhesions and formation of percutaneous jejunostomy tube and POD#1s/p delayed primary closure with poorly controlled pain and nausea using comprehensive bowel regimen, tramadol, and dilaudid [employer]ION. 2. Normocytic anemia with a drop in Hb from 10.4 to 8.5, likely dilutional in nature given large administration of IV fluids and TPN as well as net balance of >12L during the past several days. 3. Hypomagnesemia 4. AST, ALT, and Alk Phos have normalized from their elevated values 2 days ago Plan: -Replace magnesium -Repeat CBC -Repeat CMP with magnesium to assess magnesium supplementation -Manage pain as previous -Continue bowel regimen; including another dose of mag citrate -Evaluate in AM or PRN
[2017-12-21] MEDS: Docusate Sodium Liquid 100 MG/10 ML UD Cup JTUBE SCH ×2 (10:10→21:43)
[2017-12-21] MEDS: Ondansetron 4 MG/2 ML SDV IVPUSH PRN ×2 (15:47→20:14)
[2017-12-21] MEDS: MVI, Adult with Vitamin K 10 ML, Thiamine 100 MG, Chromium/Copper/Mang/Selen/Zn 1 ML in... IV SCH ×4 (16:25)
[2017-12-21] MEDS: LORazepam 2 MG/ML SDV IVPUSH PRN (17:09)
[2017-12-21] MEDS: Montelukast 10 MG Tab PO SCH (21:44)
[2017-12-21] MEDS: ClonazePAM 1 MG Tab PO SCH (22:14)
[2017-12-22] MEDS: Metoclopramide 10 MG/2 ML SDV IVPUSH SCH ×4 (01:17→20:04)
[2017-12-22] MEDS: Ondansetron 4 MG/2 ML SDV IVPUSH PRN ×2 (01:17→21:49)
[2017-12-22] MEDS: traMADol 50 MG Tab PO PRN (01:17)
[2017-12-22] MEDS: HYDROmorphone/Normal Saline 15 MG/30 ML PCA IV PRN (01:33)
[2017-12-22] MEDS: Dextrose 5%-Lactated Ringers 1,000 ML IV SCH (02:39)
[2017-12-22] MEDS ORDERED: LORazepam 2 MG/ML SDV IVPUSH STA (03:01)
[2017-12-22] MEDS: Magnesium Sulfate/Water 2 GM in Premix Bag 1 BAG IV SCH ×4 (03:32→21:29)
[2017-12-22] MEDS: Acetaminophen 500 MG Tab PO SCH (03:34)
[2017-12-22] MEDS: Scopolamine 1.5 MG Transdermal Patch TRDERM SCH (05:54)
[2017-12-22] MEDS: hydrALAZINE 10 MG Tab PO SCH ×3 (05:55→21:53)
[2017-12-22] MEDS: Erythromycin Ethylsuccinate Susp 400 MG/5 ML 100 ML Bottle JTUBE SCH (05:57)
[2017-12-22] MEDS: Sucralfate Suspension 1 GM/10 ML Cup PO SCH ×4 (05:57→21:53)
[2017-12-22] MEDS: Albuterol/Ipratropium 3.0-0.5 MG/3 ML Neb Soln INH SCH ×4 (07:23→20:55)
[2017-12-22] MEDS: Formoterol/Mometasone 200-5 MCG 8.8 GM Inhaler IH SCH ×2 (07:26→20:58)
[2017-12-22] MEDS: Naloxone 0.4 MG/ML SDV IV PRN ×2 (08:09→08:20)
[2017-12-22] MEDS ORDERED: HYDROmorphone 2 MG Tab PO PRN (10:00)
--- NOTE | 2017-12-22 11:25 | PN ---
DATE OF SERVICE: 12/22/2017 SUBJECTIVE: Shamika's jejunostomy tube feedings have gone well. She had some difficulty with an increased sleepiness during the night with multiple stools, persistent nausea. She reported her pain consistently at 8/10, was unsteady on her feet and lethargic after using the ANCHORMAN. Nursing staff gave her tramadol with no relief. I was notified around 0130 hours and her ANCHORMAN was decreased to 0.2 demand dose and if needed she was able to have Ativan 0.25 IV. Each time nursing staff went in to evaluate her, she did appear comfortable, but would wake up easily and report nausea and pain. She did report having liquid emesis several times throughout the day. Staff noticed no dry heaving, gagging, and the emesis bag was a clear water substance. At 0555 hours, the patient was comfortable given her IV medications, swallowed pills, was sleepy, orientated. No abnormalities noted. At approximately 0700 hours on doing on rounding, I was notified that Shamika was not herself. She was unable to wake up, follow verbal commands. Eyes were half open. She was unable to squeeze my hands. She could not follow verbal commands to move her toes or feet. Vital signs did remain normal during that time, respirations were 21, pulse was 116, and she was afebrile. All labs were evaluated. Her liver function tests; her AST went to 383, ALT 421, and alkaline phosphatase was 272. Bilirubin was normal. White count was 11.4. Her D- dimer was 4780 and ammonia 22. A stat CT of head and abdomen were obtained. Head was no acute changes. A CT scan of her abdomen revealed moderate to high-grade distal small-bowel obstruction. Transition point not clearly identified. Dr. Abran Roca, primary care provider was notified after CT scan of abdomen results were obtained. Noah Rene MD, was consulted and a verbal report was given. Shamika was given 2 full doses of Narcan. She did arouse and she did become more alert, follow verbal commands, was able to talk, and keep her eyes open. OBJECTIVE: GENERAL: Shamika Durán is a 42-year-old female. VITAL SIGNS: Last checked at 0858 hours, TPR is 97.8, 109, 22; blood pressure is 146/100. HEENT: Negative. NECK: Supple. HEART: Regular rate and rhythm. LUNGS: Clear. ABDOMEN: Distended. Jejunostomy feeding tube is intact, but the tube feedings have been discontinued since zero 0700 hours EXTREMITIES: Without peripheral edema. ASSESSMENT: 1. Narcotic-induced unresponsiveness, resolved after Narcan x2. 2. Elevated liver function tests, acute. 3. [id number] grade distal small bowel obstruction. 4. Laparotomy with lysis of adhesion of formation of percutaneous jejunostomy tube, small bowel resection to facilitate movement of the Vivek limb into position and placement of Interceed mesh for malnutrition, possible small bowel obstruction at the present Vivek limb passed behind colon. Date of surgery 12/14/2017. 5. Limit insertion of the Rivers catheter, left subclavian, exploratory laparotomy with lysis of adhesion, resection, reconstruction of the small bowel anastomosis and exploratory of tube decompression of the small bowel and enterotomy of tube decompression of proximal small bowel and placement of Interceed mesh, date 12/19/2017. 6. Delayed primary closure for open abdominal incision on 12/20/2017. PLAN: Discontinue ANCHORMAN. Continue Dilaudid 2 mg q.4 hours p.r.n. Xanax discontinued. discontinued. Vistaril discontinued. Lorazepam IV discontinued. Scopolamine discontinued. Tramadol discontinued. Noah Rene MD, consulted and will take the patient to the OR. Shavon Siddiqi PA-C /[id number]
[2017-12-22] MEDS: Lactobacillus Rhamnosus GG (Probiotic) Cap PO SCH (11:54)
[2017-12-22] MEDS: Escitalopram 10 MG Tab PO SCH (11:54)
[2017-12-22] MEDS: Cetirizine 10 MG Tab PO SCH (11:55)
[2017-12-22] MEDS: SCOPOLAMINE PATCH CHECK TOP SCH (11:55)
[2017-12-22] MEDS: Docusate Sodium Liquid 100 MG/10 ML UD Cup JTUBE SCH (11:55)
[2017-12-22] MEDS: ceFAZolin 2 GM in Premix Bag 1 BAG IV ONE ×2 (12:00→14:51)
[2017-12-22] MEDS ORDERED: Propofol 200 MG/20 ML SDV ONE (12:10)
[2017-12-22] MEDS ORDERED: Neostigmine Methylsulfate 1 MG/ML 5 ML Syringe ONE (12:10)
[2017-12-22] MEDS ORDERED: Glycopyrrolate 0.2 MG/ML 5 ML MDV ONE (12:10)
[2017-12-22] MEDS ORDERED: Dexamethasone 4 MG/ML SDV ONE (12:10)
[2017-12-22] MEDS ORDERED: Succinylcholine 200 MG/10 ML MDV ONE (12:10)
[2017-12-22] MEDS ORDERED: Rocuronium 50 MG/5 ML Vial ONE (12:10)
[2017-12-22] MEDS ORDERED: fentaNYL 250 MCG/5 ML SDV ONE (12:10)
[2017-12-22] MEDS ORDERED: Ondansetron 4 MG/2 ML SDV ONE (12:10)
[2017-12-22] MEDS: metroNIDAZOLE/Normal Saline 500 MG in Premix Bag 1 BAG IV ONE ×2 (12:32→14:51)
[2017-12-22] MEDS ORDERED: fentaNYL 100 MCG/2 ML SDV ONE ×2 (13:14→13:44)
[2017-12-22] MEDS ORDERED: Iopamidol 755 Mg/ML 100 ML Bottle IV SCH (15:00)
[2017-12-22] MEDS ORDERED: Sodium Chloride 0.9% 100 ML IV SCH (15:00)
[2017-12-22] MEDS: MVI, Adult with Vitamin K 10 ML, Thiamine 100 MG, Chromium/Copper/Mang/Selen/Zn 1 ML in... IV SCH ×4 (16:01)
[2017-12-22] MEDS: fentaNYL/Normal Saline 600 MCG/30 ML PCA Vial IV SCH (16:40)
[2017-12-22] MEDS ORDERED: Benzocaine/Cetylpyridinium/Menthol Lozenge MUCMEM PRN (19:53)
[2017-12-22] MEDS: Piperacillin/Tazobactam 3.375 GM in Sodium Chloride 0.9% 50 ML IV SCH (20:19)
[2017-12-22] MEDS: Montelukast 10 MG Tab PO SCH (21:54)
[2017-12-22] MEDS: ClonazePAM 1 MG Tab PO SCH (22:01)
[2017-12-23] MEDS: Metoclopramide 10 MG/2 ML SDV IVPUSH SCH ×4 (01:07→21:01)
[2017-12-23] MEDS: Dextrose 5%-Lactated Ringers 1,000 ML IV SCH ×2 (01:13→10:46)
[2017-12-23] MEDS: Ondansetron 4 MG/2 ML SDV IVPUSH PRN (02:19)
[2017-12-23] MEDS: Magnesium Sulfate/Water 2 GM in Premix Bag 1 BAG IV SCH ×4 (03:38→21:02)
[2017-12-23] MEDS: Piperacillin/Tazobactam 3.375 GM in Sodium Chloride 0.9% 50 ML IV SCH (03:38)
[2017-12-23] MEDS: hydrALAZINE 10 MG Tab PO SCH ×3 (05:10→21:03)
[2017-12-23] MEDS: Sucralfate Suspension 1 GM/10 ML Cup PO SCH ×4 (05:11→21:02)
--- NOTE | 2017-12-23 06:51 | CONS ---
DATE OF SERVICE: 12/22/2017 REFERRING PHYSICIAN: CONSULTING PHYSICIAN: Noah Rene MD REASON FOR CONSULTATION: Evaluation of abdominal pain/confusion. HISTORY OF PRESENT ILLNESS: This is a 42-year-old female who is currently inpatient. The patient has developed some confusion, abdominal distention, nausea, vomiting, and has recently required Narcan. The patient has had multiple surgeries, which includes on December 14, a jejunostomy, small bowel resection, and Interceed mesh. The patient has been getting jejunostomy feeding tubes, which has done well except she has developed some lethargy along with nausea. It is reported that she is having bowel movements but her pain is consistent at 8/10. Her JUNIOR DESIGNER has been continued, managed by Shavon Siddiqi. The patient was confused with elevated liver function tests. CT scan of her head did not show any abnormality. CT scan of her abdomen showed a distal small-bowel obstruction. The patient was given Narcan at that time. 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 The patient also had multiple EGDs with dilatation. In addition, the patient also underwent Nigel fundoplication back in 2016. Essentially, she has had on and off gastrointestinal and surgical problems/challenges for several years. Prior to this morning events, the patient was having bowel movements and pain was controlled. REVIEW OF SYSTEMS: GENERAL: Essentially unable to be obtained due to the patient's current condition and lethargy. HEENT: No changes. RESPIRATORY: Multiple issues as above. CARDIOVASCULAR: No history of myocardial infarction. NEUROLOGICAL: No reported symptoms. GASTROINTESTINAL: As above. GENITOURINARY: As above. The remainder of review of systems was reviewed and is negative. PHYSICAL EXAMINATION: VITAL SIGNS: Temperature 98.2, blood pressure 144/91, pulse 114, respirations 20, 93% on room air. GENERAL: The patient is resting comfortably. HEENT: Pupils are equal. NECK: Supple. LUNGS: Clear. CARDIOVASCULAR: Regular rhythm and rate. ABDOMEN: Significantly distended. Nontender with palpation. NEUROLOGICAL: The patient is oriented but slow to respond. PSYCHIATRIC: No obvious or gross depression. CT scan: I did review the CT scan which is described as above. ASSESSMENT: Multiple issues. PLAN: The current plan at this moment is to take the patient back for exploratory laparotomy. On CT scan, she has a bowel obstruction. This will be addressed first. In addition, the patient has significant ascites, the etiology remains unknown at this time. I also drained this, and also re-evaluated the condition of the jejunal feeding tube. In addition, the patient does have an elevated D-dimer. We will set her up for a CT scan and start her on Lovenox and SCDs. We will also check a urinalysis today as she does have a history of urinary tract infections and update based upon surgical findings today. Noah Rene MD /[id number]
[2017-12-23] MEDS: Albuterol/Ipratropium 3.0-0.5 MG/3 ML Neb Soln INH SCH ×4 (08:26→21:01)
[2017-12-23] MEDS: Formoterol/Mometasone 200-5 MCG 8.8 GM Inhaler IH SCH ×2 (08:26→21:01)
[2017-12-23] MEDS: Lactobacillus Rhamnosus GG (Probiotic) Cap PO SCH (09:50)
[2017-12-23] MEDS: Escitalopram 10 MG Tab PO SCH (09:50)
[2017-12-23] MEDS: Cetirizine 10 MG Tab PO SCH (09:51)
[2017-12-23] MEDS: Enoxaparin 40 MG/0.4 ML Syringe SUBCUT SCH (09:56)
[2017-12-23] MEDS: Piperacillin/Tazobactam/Dext 3.375 GM in Premix Bag 1 BAG IV SCH ×3 (09:58→21:02)
--- NOTE | 2017-12-23 10:00 | PN ---
DATE OF SERVICE: 12/23/2017 SUBJECTIVE: The patient is doing better today both subjectively and objectively. She has some nausea, but no vomiting, shortness of breath, or chest pain. The patient is also more alert today. She is interactive and asking questions. OBJECTIVE: VITAL SIGNS: Stable. Temperature 100.6, blood pressure 120/69, respirations 26, 95% on 2 L, and pulse 120. CARDIOVASCULAR: Regular rhythm and rate. RESPIRATORY: Mild crackles bilaterally. ABDOMEN: Less distended. SHERRI drain shows serosanguineous only. NEUROLOGIC: Now oriented. PSYCH: No gross depression. LABORATORY DATA: Laboratory results show hemoglobin of 11.4, white blood cell count 7.8. AST and ALT decreased. IMAGING: I did review the CT scan of her chest, which does not show any evidence of pulmonary embolism. ASSESSMENT AND PLAN: 1. Abdominal bowel obstruction. The patient is not passing any gas at this time; however, her AST has decreased from 385 to 51. ALT has changed from 421 to 197. Alkaline phosphatase has changed from 272 to 187. All of these suggest improvement in her gastrointestinal track. No evidence of leak at the suture tear site, as the drain is serosanguineous still. Of note, this drain is directly over the suture site. 2. Hematology: The patient's hemoglobin is 11.4 compared to 11.8. No plans for transfusion today. 3. Fluid/electrolytes: Her basic metabolic panel is essentially within normal range. 4. Prophylaxis: The patient is on Lovenox this morning, incentive spirometry, and SCDs. 5. Genitourinary: Catheter amount in the last 24 hours was 1100 mL. Keep the Rodgers catheter in at this time, probably plan for removal tomorrow. Noah Rene MD /[id number]
--- NOTE | 2017-12-23 12:36 | PCM.PN ---
- General Info Date of Service: 12/22/17 Subjective Update: I received a phone call from the nurse that Celeste was unresponsive that happened early this morning. They wanted me to come in and see her immediately. I called back within 5 mins and questioned how much Dilaudid she had gotten. They reported she had received 0.6 mg of Dilaudid. Narcan was given and she responded with verbal communication which she was unable to respond before. I then came in to evaluate her. I also had ordered a CT of the head. - Review of Systems General: Reports: Weakness HEENT: Reports: No Symptoms Pulmonary: Reports: No Symptoms Cardiovascular: Reports: Palpitations Gastrointestinal: Reports: Abdominal Pain, Decreased Appetite, Nausea Genitourinary: Reports: No Symptoms Musculoskeletal: Reports: No Symptoms Skin: Reports: No Symptoms Neurological: Reports: No Symptoms Psychiatric: Reports: No Symptoms - Patient Data Vitals - Most Recent: Last Vital Signs Temp 100.4 F 12/23/17 07:55 Pulse 117 H 12/23/17 11:38 Resp 24 H 12/23/17 10:30 BP 107/77 12/23/17 10:30 Pulse Ox 93 L 12/23/17 11:38 Weight - Most Recent: 197 lb 4.808 oz I&O - Last 24 Hours: Intake & Output 12/22/17 12/23/17 12/23/17 22:59 06:59 14:59 Intake Total 350 1206 Output Total 575 1500 Balance -225 -294 Lab Results Last 24 Hours: Laboratory Results - last 24 hr 12/22/17 12/23/17 12/23/17 Range/Units 15:00 05:11 05:11 WBC 7.8 (4.5-11.0) K/uL RBC 3.88 (3.30-5.50) M/uL Hgb 11.4 L (12.0-15.0) g/dL Hct 35.0 L (36.0-48.0) % MCV 90 (80-98) fL MCH 29 (27-31) pg MCHC 33 (32-36) % Plt Count 439 H (150-400) K/uL Sodium 135 L (140-148) mmol/L Potassium 4.7 (3.6-5.2) mmol/L Chloride 103 (100-108) mmol/L Carbon Dioxide 26 (21-32) mmol/L Anion Gap 10.7 (5.0-14.0) mmol/L BUN 13 (7-18) mg/dL Creatinine 0.6 (0.6-1.0) mg/dL Est Cr Clr Drug Dosing 110.85 mL/min Estimated GFR (MDRD) > 60 (>60) Glucose 119 H (74-106) mg/dL Calcium 7.3 L (8.5-10.1) mg/dL Total Bilirubin 0.3 (0.2-1.0) mg/dL AST 51 H D (15-37) U/L ALT 197 H (12-78) U/L Alkaline Phosphatase 187 H (46-116) U/L Total Protein 4.4 L (6.4-8.2) g/dL Albumin 1.7 L (3.4-5.0) g/dL Globulin 2.7 (2.3-3.5) g/dL Albumin/Globulin Ratio 0.6 L (1.2-2.2) Urine Color Yellow Urine Appearance Clear Urine pH 9.0 H (4.5-8.0) Ur Specific Yulan 1.015 (1.008-1.030) Urine Protein Negative (NEGATIVE) mg/dL Urine Glucose (UA) Normal (NEGATIVE) mg/dL Urine Ketones 15 H (NEGATIVE) mg/dL Urine Occult Blood Negative (NEGATIVE) Urine Nitrite Negative (NEGATIVE) Urine Bilirubin Negative (NEGATIVE) Urine Urobilinogen Normal (NORMAL) mg/dL Ur Leukocyte Esterase Negative (NEGATIVE) Urine RBC Not seen (0-5) Urine WBC Not seen (0-5) Ur Epithelial Cells Rare Amorphous Sediment Not seen Urine Bacteria Rare Urine Mucus Not seen Ash Results Last 24 Hours: Microbiology 12/22/17 13:11 Gram Stain - Final Abdominal Fluid - Aspirate Med Orders - Current: Current Medications Albuterol/Ipratropium (Duoneb 3.0-0.5 Mg/3 Ml) 3 ml INH QIDRT [facility] Last Admin: 12/23/17 11:38 Dose: 3 ml Albuterol/Ipratropium (Duoneb 3.0-0.5 Mg/3 Ml) 3 ml INH ASDIRECTED PRN PRN Reason: BREATHING Benzocaine/Menthol (Cepacol Sore Throat) 1 lozenge MUCMEM ASDIRECTED PRN PRN Reason: Sore Throat Last Admin: 12/22/17 21:29 Dose: 1 pack Cetirizine HCl (Zyrtec) 10 mg PO DAILY [facility] Last Admin: 12/23/17 09:51 Dose: Not Given Clonazepam (Klonopin) 1 mg PO BEDTIME [facility] Last Admin: 12/22/17 22:01 Dose: 1 mg Enoxaparin Sodium (Lovenox) 40 mg SUBCUT DAILY [facility] Last Admin: 12/23/17 09:56 Dose: 40 mg Escitalopram Oxalate (Lexapro) 10 mg PO DAILY [facility] Last Admin: 12/23/17 09:50 Dose: Not Given Fentanyl Citrate (Fentanyl In Ns 20 Mcg/Ml 30 Ml [employer]) 0 mcg IV ASDIRECTED [facility]; Protocol Last Admin: 12/22/17 16:40 Dose: 20 mcg Heparin Sodium (Porcine) (Heparin Lock Flush 100 Units/Ml) 500 units FLUSH ASDIRECTED PRN PRN Reason: Central line flush Last Admin: 12/23/17 04:30 Dose: 500 units Hydralazine HCl (Apresoline) 10 mg PO Q8HR [facility] Last Admin: 12/23/17 05:10 Dose: 10 mg Hydromorphone HCl (Dilaudid) 2 mg PO Q4H PRN PRN Reason: Pain Dextrose/Lactated Ringer's (Dextrose 5%-Lactated Ringers) 1,000 mls @ 100 mls/ hr IV ASDIRECTED [facility] Last Admin: 12/23/17 10:46 Dose: 100 mls/hr Multivitamins/Minerals 10 ml/Thiamine HCl 100 mg/ Chromium/Copper/Manganese/ Seleni/Zn 1 ml/ Dextrose/Lactated Ringer's 1,012 mls @ 100 mls/hr IV DAILY@ 1600 [facility] Last Admin: 12/22/17 16:01 Dose: 100 mls/hr Magnesium Sulfate 2 gm/ Premix 50 mls @ 25 mls/hr IV Q6H [facility] Stop: 12/24/17 05:59 Last Admin: 12/23/17 09:58 Dose: 25 mls/hr Sodium Chloride (Normal Saline) 250 mls @ 25 mls/hr IV ASDIRECTED [facility] Piperacillin/Tazobactam/ (Dextrose 3.375 gm/ Premix) 50 mls @ 100 mls/hr IV Q6H [facility] Last Admin: 12/23/17 09:58 Dose: 100 mls/hr Lactobacillus Rhamnosus (Culturelle) 1 cap PO DAILY [facility] Last Admin: 12/23/17 09:50 Dose: Not Given Levalbuterol HCl (Xopenex) 1.25 mg INH Q6H PRN PRN Reason: * Loperamide HCl (Imodium) 2 mg PO ASDIRECTED PRN PRN Reason: LOOSE STOOL Metoclopramide HCl (Reglan) 10 mg IVPUSH Q6H [facility] Last Admin: 12/23/17 07:57 Dose: 10 mg Mometasone Furoate/Formoterol Fumar (Dulera 200-5 Mcg) 2 puff IH BIDRT [facility] Last Admin: 12/23/17 08:26 Dose: 2 puff Montelukast Sodium (Singulair) 10 mg PO BEDTIME [facility] Last Admin: 12/22/17 21:54 Dose: 10 mg Naloxone HCl (Narcan) 0.4 mg IV ASDIRECTED PRN PRN Reason: RESPIRATORY RATE LESS THAN 12 Last Admin: 12/22/17 08:20 Dose: 0.1 mg Ondansetron HCl (Zofran) 4 mg IVPUSH Q4H PRN PRN Reason: Nausea/Vomiting Last Admin: 12/23/17 02:19 Dose: 4 mg Sucralfate (Carafate) 0.5 gm PO QID [facility] Last Admin: 12/23/17 09:51 Dose: Not Given Discontinued Medications Acetaminophen (Tylenol Jr. Meltaways) 960 mg PO ONETIME ONE Stop: 12/14/17 11:01 Last Admin: 12/14/17 11:09 Dose: 960 mg Acetaminophen (Tylenol Jr. Meltaways) 960 mg PO Q6H [facility] Last Admin: 12/18/17 23:34 Dose: Not Given Acetaminophen (Tylenol) Confirm Administered Dose 1,300 mg .ROUTE .STK-MED ONE Stop: 12/15/17 16:09 Last Admin: 12/15/17 16:20 Dose: Not Given Acetaminophen (Tylenol Extra Strength) 1,000 mg PO Q6H [facility] Last Admin: 12/22/17 03:34 Dose: Not Given Albuterol/Ipratropium (Duoneb 3.0-0.5 Mg/3 Ml) 3 ml NEB ONETIME ONE Stop: 12/14/17 12:16 Last Admin: 12/14/17 11:54 Dose: 3 ml Alprazolam (Xanax) 1 mg PO TID PRN PRN Reason: Anxiety Last Admin: 12/15/17 15:48 Dose: 1 mg Bisacodyl (Dulcolax) 10 mg RECTAL BID ALEX Last Admin: 12/21/17 09:03 Dose: Not Given Bupivacaine HCl (Marcaine 0.5%) Confirm Administered Dose 50 ml .ROUTE .STK-MED ONE Stop: 12/16/17 06:31 Bupivacaine HCl (Marcaine 0.5%) Confirm Administered Dose 50 ml .ROUTE .STK-MED ONE Stop: 12/18/17 10:22 Last Admin: 12/18/17 10:15 Dose: 50 ml Bupivacaine HCl (Marcaine 0.5%) Confirm Administered Dose 50 ml .ROUTE .STK-MED ONE Stop: 12/20/17 06:33 Last Admin: 12/20/17 08:04 Dose: 10 ml Bupivacaine HCl/Epinephrine Bitart (Marcaine 0.5%/Epinephrine 1:200,000) Confirm Administered Dose 50 ml .ROUTE .STK-MED ONE Stop: 12/14/17 12:42 Last Admin: 12/14/17 13:03 Dose: 10 ml Ropivacaine 40 ml/Dexamethasone 8 mg/Epinephrine HCl 0.4 mg/ Sodium Chloride 37.6 ml 0 ml NERVRT ONETIME ONE Stop: 12/14/17 12:01 Last Admin: 12/14/17 12:52 Dose: 2 syringe Ropivacaine 40 ml/Dexamethasone 8 mg/Epinephrine HCl 0.4 mg/ Sodium Chloride 37.6 ml 0 ml NERVRT ONETIME ONE Stop: 12/16/17 07:16 Last Admin: 12/16/17 09:30 Dose: Not Given Ropivacaine 40 ml/Dexamethasone 8 mg/Epinephrine HCl 0.4 mg/ Sodium Chloride 37.6 ml 0 ml NERVRT ONETIME ONE Stop: 12/18/17 09:31 Last Admin: 12/18/17 10:44 Dose: 80 syringe Ropivacaine 40 ml/Dexamethasone 8 mg/Epinephrine HCl 0.4 mg/ Sodium Chloride 37.6 ml 0 ml NERVRT ONETIME ONE Stop: 12/20/17 07:16 Last Admin: 12/20/17 07:30 Dose: 80 syringe Dexamethasone (Dexamethasone) Confirm Administered Dose 4 mg .ROUTE .STK-MED ONE Stop: 12/14/17 12:12 Dexamethasone (Dexamethasone) Confirm Administered Dose 4 mg .ROUTE .ST-MED ONE Stop: 12/18/17 08:55 Dexamethasone (Dexamethasone) Confirm Administered Dose 4 mg .ROUTE .[facility]-MED ONE Stop: 12/22/17 12:11 Docusate Sodium (Colace 50 Mg/5 Ml Liquid) 100 mg JTUBE BID [facility] Last Admin: 12/22/17 11:55 Dose: Not Given Erythromycin Ethylsuccinate (Eryped 400) 250 mg JTUBE QID [facility] Last Admin: 12/22/17 05:57 Dose: 250 mg Fentanyl (Sublimaze) Confirm Administered Dose 250 mcg .ROUTE .ST-MED ONE Stop: 12/14/17 12:11 Fentanyl (Sublimaze) Confirm Administered Dose 250 mcg .ROUTE .ST-MED ONE Stop: 12/14/17 12:55 Fentanyl (Sublimaze) Confirm Administered Dose 250 mcg .ROUTE .[facility]-MED ONE Stop: 12/18/17 11:12 Fentanyl (Sublimaze) Confirm Administered Dose 100 mcg .ROUTE .ST-MED ONE Stop: 12/20/17 07:11 Fentanyl (Sublimaze) Confirm Administered Dose 250 mcg .ROUTE .ST-MED ONE Stop: 12/22/17 12:11 Fentanyl (Sublimaze) Confirm Administered Dose 100 mcg .ROUTE .[facility]-MED ONE Stop: 12/22/17 13:15 Fentanyl (Sublimaze) Confirm Administered Dose 100 mcg .ROUTE .ST-MED ONE Stop: 12/22/17 13:45 Fentanyl Citrate (Fentanyl) Confirm Administered Dose 500 mcg .ROUTE .ST-MED ONE Stop: 12/18/17 08:56 Glycopyrrolate (Robinul) Confirm Administered Dose 1 mg .ROUTE .ST-MED ONE Stop: 12/14/17 12:12 Glycopyrrolate (Robinul) Confirm Administered Dose 1 mg .ROUTE .ST-MED ONE Stop: 12/18/17 08:55 Glycopyrrolate (Robinul) Confirm Administered Dose 1 mg .ROUTE .STK-MED ONE Stop: 12/22/17 12:11 Heparin Sodium (Porcine) (Heparin Lock Flush 100 Units/Ml) Confirm Administered Dose 500 units .ROUTE .ST-MED ONE Stop: 12/18/17 07:02 Heparin Sodium (Porcine) (Heparin Lock Flush 100 Units/Ml) Confirm Administered Dose 500 units .ROUTE .STK-MED ONE Stop: 12/18/17 10:26 Hydromorphone HCl (Dilaudid [employer] 15 Mg In Ns 30 Ml) 0 mg IV ASDIRECTED PRN; Protocol PRN Reason: PAIN Last Admin: 12/19/17 15:39 Dose: 15 mg Hydromorphone HCl (Dilaudid) 1 mg IVPUSH Q1H PRN PRN Reason: Pain Last Admin: 12/17/17 10:30 Dose: 1 mg Hydromorphone HCl (Dilaudid [employer] 15 Mg In Ns 30 Ml) 0 mg IV ASDIRECTED PRN; Protocol PRN Reason: Pain Last Admin: 12/22/17 01:33 Dose: 15 mg Hydroxyzine HCl (Vistaril) 100 mg IM Q4H PRN PRN Reason: Pain Dextrose/Lactated Ringer's (Dextrose 5%-Lactated Ringers) 1,000 mls @ 100 mls/ hr IV ASDIRECTED [facility] Last Admin: 12/14/17 11:10 Dose: 100 mls/hr Cefoxitin Sodium 2 gm/ Sodium (Chloride) 50 mls @ 100 mls/hr IV ONETIME ONE Stop: 12/14/17 12:29 Last Admin: 12/14/17 11:54 Dose: 100 mls/hr Lidocaine HCl/Dextrose (Lidocaine 2 Gm/D5w 500 Ml) 2 gm in 500 mls @ 22.5 mls/ hr IV .[id number] [facility] Stop: 12/15/17 14:00 Last Admin: 12/15/17 10:01 Dose: 0 mg/min, 22.5 mls/hr Dextrose/Lactated Ringer's (Dextrose 5%-Lactated Ringers) 1,000 mls @ 150 mls/ hr IV ASDIRECTED [facility] Last Admin: 12/15/17 06:34 Dose: 150 mls/hr Multivitamins/Minerals 10 ml/Thiamine HCl 100 mg/ Chromium/Copper/Manganese/ Seleni/Zn 1 ml/ Dextrose/Lactated Ringer's 1,012 mls @ 150 mls/hr IV DAILY@ 1600 [facility] Last Admin: 12/17/17 17:00 Dose: 150 mls/hr Cefoxitin Sodium 2 gm/ Sodium (Chloride) 50 mls @ 100 mls/hr IV Q6H [facility] Stop: 12/15/17 06:29 Last Admin: 12/15/17 05:13 Dose: 100 mls/hr Dextrose/Lactated Ringer's (Dextrose 5%-Lactated Ringers) 1,000 mls @ 100 mls/ hr IV ASDIRECTED [facility] Last Admin: 12/18/17 13:06 Dose: 100 mls/hr Lidocaine HCl (Xylocaine-Mpf 1%) Confirm Administered Dose 2 mls @ as directed .ROUTE .STK-MED ONE Stop: 12/16/17 07:33 Magnesium Sulfate 2 gm/ Premix 50 mls @ 25 mls/hr IV Q6H [facility] Stop: 12/18/17 05:59 Last Admin: 12/18/17 12:35 Dose: 25 mls/hr Multivitamins/Minerals 10 ml/Thiamine HCl 200 mg/ Magnesium Sulfate 2 gm/ Folic Acid 1 mg / Lactated Ringer's 1,016.2 mls @ 256 mls/hr IV ONETIME ONE Stop: 12/17/17 12:58 Last Admin: 12/17/17 10:32 Dose: 256 mls/hr Meropenem 500 mg/ Sodium (Chloride) 50 mls @ 100 mls/hr IV ONCALL ONE Stop: 12/18/17 09:59 Last Admin: 12/18/17 10:06 Dose: 100 mls/hr Ketamine HCl 100 mg/ Sodium (Chloride) 100 mls @ 17.1 mls/hr IV ASDIRECTED [facility] Stop: 12/18/17 11:30 Lidocaine HCl/Dextrose (Lidocaine 2 Gm/D5w 500 Ml) 2 gm in 500 mls @ 22.5 mls/ hr IV .[id number] [facility] Stop: 12/19/17 14:00 Last Admin: 12/19/17 07:46 Dose: 1.5 mg/min, 22.5 mls/hr Linezolid (Zyvox) Confirm Administered Dose 100 mls @ as directed .ROUTE .STK- MED ONE Stop: 12/18/17 07:02 Multivitamins/Minerals 10 ml/Thiamine HCl 100 mg/ Chromium/Copper/Manganese/ Seleni/Zn 1 ml/ Dextrose/Lactated Ringer's 1,012 mls @ 175 mls/hr IV DAILY@ 1600 [facility] Last Admin: 12/19/17 18:13 Dose: 175 mls/hr Dextrose/Lactated Ringer's (Dextrose 5%-Lactated Ringers) 1,000 mls @ 175 mls/ hr IV ASDIRECTED [facility] Last Admin: 12/20/17 05:34 Dose: 175 mls/hr Meropenem 500 mg/ Sodium (Chloride) 50 mls @ 100 mls/hr IV Q6H [facility] Stop: 12/19/17 10:29 Last Admin: 12/19/17 11:21 Dose: 100 mls/hr Acetaminophen 1,000 mg/ Premix 100 mls @ 400 mls/hr IV NOW ONE Stop: 12/18/17 22:14 Last Admin: 12/18/17 21:58 Dose: 400 mls/hr Lactated Ringer's (Ringers, Lactated) 500 mls @ 500 mls/hr IV ONETIME ONE Stop: 12/19/17 18:59 Last Admin: 12/19/17 18:13 Dose: 500 mls/hr Cefazolin Sodium/Dextrose 2 gm (/ Premix) 50 mls @ 100 mls/hr IV ONETIME ONE Stop: 12/22/17 11:29 Last Admin: 12/22/17 14:51 Dose: Not Given Metronidazole 500 mg/ Premix 100 mls @ 100 mls/hr IV ONETIME ONE Stop: 12/22/17 11:59 Last Admin: 12/22/17 14:51 Dose: Not Given Sodium Chloride (Normal Saline) 100 mls @ 3 mls/sec IV ASDIRECTED [facility] Stop: 12/22/17 18:00 Last Admin: 12/22/17 15:57 Dose: 3 mls/sec Piperacillin Sod/Tazobactam (Sod 3.375 gm/ Sodium Chloride) 50 mls @ 100 mls/ hr IV Q8H [facility] Last Admin: 12/23/17 03:38 Dose: 100 mls/hr Iohexol (Omnipaque-300) 50 ml IVPUSH . DIRECTED PRN PRN Reason: RADIOLOGY EXAM Stop: 12/16/17 03:52 Last Admin: 12/15/17 04:08 Dose: 50 ml Iohexol (Omnipaque-300) 50 ml PO .ASDIRECTED [facility] Stop: 12/17/17 11:00 Last Admin: 12/17/17 10:57 Dose: 50 ml Iohexol (Omnipaque-300) 50 ml PO .ASDIRECTED STA Stop: 12/19/17 03:19 Last Admin: 12/19/17 03:28 Dose: 50 ml Iopamidol (Isovue-370 (76%)) 100 ml IV . DIRECTED ALEX Stop: 12/22/17 18:00 Last Admin: 12/22/17 15:57 Dose: 100 ml Ketamine HCl (Ketalar) 29 mg IV ONETIME ONE Stop: 12/14/17 12:01 Last Admin: 12/14/17 20:12 Dose: Not Given Ketamine HCl (Ketalar) 29 mg IV ONETIME ONE Stop: 12/18/17 09:31 Last Admin: 12/18/17 20:20 Dose: Not Given Labetalol HCl (Normodyne) Confirm Administered Dose 20 mg .ROUTE .STK-MED ONE Stop: 12/18/17 11:38 Lidocaine HCl (Xylocaine 2%) 100 mg IVPUSH ONETIME ONE Stop: 12/14/17 12:01 Last Admin: 12/14/17 20:13 Dose: Not Given Lidocaine HCl (Xylocaine 2%) 100 mg IVPUSH ONETIME ONE Stop: 12/18/17 09:31 Last Admin: 12/18/17 20:21 Dose: Not Given Lidocaine/Epinephrine (Xylocaine 1% With Epinephrine 1:100,000) Confirm Administered Dose 50 ml .ROUTE .STK-MED ONE Stop: 12/16/17 06:31 Lidocaine/Epinephrine (Xylocaine 1% With Epinephrine 1:100,000) Confirm Administered Dose 50 ml .ROUTE .STK-MED ONE Stop: 12/18/17 10:22 Last Admin: 12/18/17 10:15 Dose: 50 ml Lidocaine/Epinephrine (Xylocaine 1% With Epinephrine 1:100,000) Confirm Administered Dose 50 ml .ROUTE .STK-MED ONE Stop: 12/20/17 06:33 Last Admin: 12/20/17 08:05 Dose: 20 ml Lorazepam (Ativan) 1 mg IVPUSH Q2H PRN PRN Reason: Nausea Last Admin: 12/21/17 17:09 Dose: 1 mg Lorazepam (Ativan) 0.25 mg IVPUSH ONETIME STA Stop: 12/22/17 03:02 Last Admin: 12/22/17 03:30 Dose: 0.25 mg Magnesium Citrate (Citrate Of Magnesia) 296 ml JTUBE ONETIME ONE Stop: 12/17/17 18:44 Last Admin: 12/17/17 21:14 Dose: 296 ml Magnesium Citrate (Citrate Of Magnesia) 296 ml PO ONETIME ONE Stop: 12/19/17 09:01 Last Admin: 12/19/17 10:39 Dose: 296 ml Magnesium Citrate (Citrate Of Magnesia) 296 ml JTUBE ONETIME ONE Stop: 12/21/17 09:01 Last Admin: 12/21/17 10:10 Dose: 296 ml Magnesium Hydroxide (Milk Of Magnesia) 30 ml JTUBE BID ALEX Last Admin: 12/21/17 09:17 Dose: 30 ml Meropenem (Merrem) Confirm Administered Dose 500 mg .ROUTE .STK-MED ONE Stop: 12/14/17 13:00 Last Admin: 12/14/17 13:03 Dose: 500 mg Meropenem (Merrem) Confirm Administered Dose 500 mg .ROUTE .STK-MED ONE Stop: 12/16/17 06:31 Meropenem (Merrem) Confirm Administered Dose 500 mg .ROUTE .STK-MED ONE Stop: 12/18/17 07:01 Last Admin: 12/18/17 11:28 Dose: 500 mg Meropenem (Merrem) Confirm Administered Dose 500 mg .ROUTE .STK-MED ONE Stop: 12/20/17 06:33 Metoclopramide HCl (Reglan) 10 mg IVPUSH Q6H [facility] Last Admin: 12/16/17 02:32 Dose: 10 mg Midazolam HCl (Versed 1 Mg/Ml) Confirm Administered Dose 2 mg .ROUTE .STK-MED ONE Stop: 12/20/17 07:11 Neostigmine Methylsulfate (Neostigmine) Confirm Administered Dose 5 mg .ROUTE .STK-MED ONE Stop: 12/14/17 12:12 Neostigmine Methylsulfate (Neostigmine) Confirm Administered Dose 5 mg .ROUTE .STK-MED ONE Stop: 12/18/17 08:55 Neostigmine Methylsulfate (Neostigmine) Confirm Administered Dose 5 mg .ROUTE .STK-MED ONE Stop: 12/22/17 12:11 Scopolamine Patch (Check) 1 each TOP DAILY [facility] Last Admin: 12/22/17 11:55 Dose: Not Given Ondansetron HCl (Zofran) Confirm Administered Dose 4 mg .ROUTE .STK-MED ONE Stop: 12/14/17 12:12 Ondansetron HCl (Zofran) Confirm Administered Dose 4 mg .ROUTE .STK-MED ONE Stop: 12/18/17 08:55 Ondansetron HCl (Zofran) Confirm Administered Dose 4 mg .ROUTE .STK-MED ONE Stop: 12/20/17 07:19 Ondansetron HCl (Zofran) Confirm Administered Dose 4 mg .ROUTE .STK-MED ONE Stop: 12/22/17 12:11 Propofol (Diprivan 20 Ml) Confirm Administered Dose 200 mg .ROUTE .STK-MED ONE Stop: 12/14/17 12:12 Propofol (Diprivan 20 Ml) Confirm Administered Dose 200 mg .ROUTE .STK-MED ONE Stop: 12/16/17 07:46 Propofol (Diprivan 20 Ml) Confirm Administered Dose 200 mg .ROUTE .STK-MED ONE Stop: 12/18/17 08:55 Propofol (Diprivan 20 Ml) Confirm Administered Dose 200 mg .ROUTE .STK-MED ONE Stop: 12/20/17 07:11 Propofol (Diprivan 20 Ml) Confirm Administered Dose 200 mg .ROUTE .STK-MED ONE Stop: 12/20/17 07:46 Propofol (Diprivan 20 Ml) Confirm Administered Dose 200 mg .ROUTE .STK-MED ONE Stop: 12/22/17 12:11 Rocuronium Solon (Zemuron) Confirm Administered Dose 50 mg .ROUTE .STK-MED ONE Stop: 12/14/17 12:12 Rocuronium Solon (Zemuron) Confirm Administered Dose 50 mg .ROUTE .STK-MED ONE Stop: 12/18/17 08:55 Rocuronium Solon (Zemuron) Confirm Administered Dose 50 mg .ROUTE .STK-MED ONE Stop: 12/22/17 12:11 Scopolamine (Transderm-Scop) 1.5 mg TOP Q72H [facility] Stop: 12/16/17 09:31 Last Admin: 12/14/17 10:08 Dose: 1.5 mg Scopolamine (Transderm-Scop) 1.5 mg TRDERM Q72H [facility] Last Admin: 12/22/17 05:54 Dose: 1.5 mg Succinylcholine Chloride (Quelicin) Confirm Administered Dose 200 mg .ROUTE .STK -MED ONE Stop: 12/18/17 08:55 Succinylcholine Chloride (Quelicin) Confirm Administered Dose 200 mg .ROUTE .STK -MED ONE Stop: 12/22/17 12:11 Tramadol HCl (Ultram) 50 - 100 mg PO Q6H PRN PRN Reason: Pain Last Admin: 12/22/17 01:17 Dose: 100 mg - Exam General: Alert, Oriented HEENT: Other (pupils are dilated but equal. EOM in tact) Neck: Supple Lungs: Clear to Auscultation, Normal Respiratory Effort Cardiovascular: Regular Rate, Regular Rhythm, Tachycardia GI/Abdominal Exam: Distended, Tender, Abnormal Bowel Sounds Extremities: Normal Inspection, Normal Range of Motion, Non-Tender, No Pedal Edema, Normal Capillary Refill Peripheral Pulses: 1+: Radial (L), Radial (R) Skin: Warm, Dry, Intact Psy/Mental Status: Depressed - Problem List Review Problem List Initiated/Reviewed/Updated: Yes - Plan Plan:: Assessment/Plan: #1. Accidental overdose of Medicine. I feel she had an overdose of Dilaudid but accidental. CT of the head was unremarkable. I see no evidence of an acute CVA as her neuro exam is all neg. #2. Acute Abd: CT of the Abd shows a surgical abd. Shavon called the surgeon [employer] architect.
--- NOTE | 2017-12-23 12:58 | PCM.PN ---
- General Info Date of Service: 12/23/17 Functional Status: Reports: Pain Controlled - Review of Systems General: Reports: Weakness, Fatigue Pulmonary: Reports: No Symptoms Cardiovascular: Reports: Palpitations Gastrointestinal: Reports: Abdominal Pain Neurological: Reports: No Symptoms Psychiatric: Reports: Depression - Patient Data Vitals - Most Recent: Last Vital Signs Temp 100.4 F 12/23/17 07:55 Pulse 117 H 12/23/17 11:38 Resp 24 H 12/23/17 10:30 BP 107/77 12/23/17 10:30 Pulse Ox 93 L 12/23/17 11:38 Weight - Most Recent: 197 lb 4.808 oz I&O - Last 24 Hours: Intake & Output 12/22/17 12/23/17 12/23/17 22:59 06:59 14:59 Intake Total 350 1206 Output Total 575 1500 Balance -225 -294 Lab Results Last 24 Hours: Laboratory Results - last 24 hr 12/22/17 12/23/17 12/23/17 Range/Units 15:00 05:11 05:11 WBC 7.8 (4.5-11.0) K/uL RBC 3.88 (3.30-5.50) M/uL Hgb 11.4 L (12.0-15.0) g/dL Hct 35.0 L (36.0-48.0) % MCV 90 (80-98) fL MCH 29 (27-31) pg MCHC 33 (32-36) % Plt Count 439 H (150-400) K/uL Sodium 135 L (140-148) mmol/L Potassium 4.7 (3.6-5.2) mmol/L Chloride 103 (100-108) mmol/L Carbon Dioxide 26 (21-32) mmol/L Anion Gap 10.7 (5.0-14.0) mmol/L BUN 13 (7-18) mg/dL Creatinine 0.6 (0.6-1.0) mg/dL Est Cr Clr Drug Dosing 110.85 mL/min Estimated GFR (MDRD) > 60 (>60) Glucose 119 H (74-106) mg/dL Calcium 7.3 L (8.5-10.1) mg/dL Total Bilirubin 0.3 (0.2-1.0) mg/dL AST 51 H D (15-37) U/L ALT 197 H (12-78) U/L Alkaline Phosphatase 187 H (46-116) U/L Total Protein 4.4 L (6.4-8.2) g/dL Albumin 1.7 L (3.4-5.0) g/dL Globulin 2.7 (2.3-3.5) g/dL Albumin/Globulin Ratio 0.6 L (1.2-2.2) Urine Color Yellow Urine Appearance Clear Urine pH 9.0 H (4.5-8.0) Ur Specific [place] 1.015 (1.008-1.030) Urine Protein Negative (NEGATIVE) mg/dL Urine Glucose (UA) Normal (NEGATIVE) mg/dL Urine Ketones 15 H (NEGATIVE) mg/dL Urine Occult Blood Negative (NEGATIVE) Urine Nitrite Negative (NEGATIVE) Urine Bilirubin Negative (NEGATIVE) Urine Urobilinogen Normal (NORMAL) mg/dL Ur Leukocyte Esterase Negative (NEGATIVE) Urine RBC Not seen (0-5) Urine WBC Not seen (0-5) Ur Epithelial Cells Rare Amorphous Sediment Not seen Urine Bacteria Rare Urine Mucus Not seen Ash Results Last 24 Hours: Microbiology 12/22/17 13:11 Gram Stain - Final Abdominal Fluid - Aspirate Med Orders - Current: Current Medications Albuterol/Ipratropium (Duoneb 3.0-0.5 Mg/3 Ml) 3 ml INH QIDRT [facility] Last Admin: 12/23/17 11:38 Dose: 3 ml Albuterol/Ipratropium (Duoneb 3.0-0.5 Mg/3 Ml) 3 ml INH ASDIRECTED PRN PRN Reason: BREATHING Benzocaine/Menthol (Cepacol Sore Throat) 1 lozenge MUCMEM ASDIRECTED PRN PRN Reason: Sore Throat Last Admin: 12/22/17 21:29 Dose: 1 pack Cetirizine HCl (Zyrtec) 10 mg PO DAILY [facility] Last Admin: 12/23/17 09:51 Dose: Not Given Clonazepam (Klonopin) 1 mg PO BEDTIME [facility] Last Admin: 12/22/17 22:01 Dose: 1 mg Enoxaparin Sodium (Lovenox) 40 mg SUBCUT DAILY [facility] Last Admin: 12/23/17 09:56 Dose: 40 mg Escitalopram Oxalate (Lexapro) 10 mg PO DAILY [facility] Last Admin: 12/23/17 09:50 Dose: Not Given Fentanyl Citrate (Fentanyl In Ns 20 Mcg/Ml 30 Ml Thermostat Mechanic) 0 mcg IV ASDIRECTED [facility]; Protocol Last Admin: 12/22/17 16:40 Dose: 20 mcg Heparin Sodium (Porcine) (Heparin Lock Flush 100 Units/Ml) 500 units FLUSH ASDIRECTED PRN PRN Reason: Central line flush Last Admin: 12/23/17 04:30 Dose: 500 units Hydralazine HCl (Apresoline) 10 mg PO Q8HR [facility] Last Admin: 12/23/17 05:10 Dose: 10 mg Hydromorphone HCl (Dilaudid) 2 mg PO Q4H PRN PRN Reason: Pain Dextrose/Lactated Ringer's (Dextrose 5%-Lactated Ringers) 1,000 mls @ 100 mls/ hr IV ASDIRECTED [facility] Last Admin: 12/23/17 10:46 Dose: 100 mls/hr Multivitamins/Minerals 10 ml/Thiamine HCl 100 mg/ Chromium/Copper/Manganese/ Seleni/Zn 1 ml/ Dextrose/Lactated Ringer's 1,012 mls @ 100 mls/hr IV DAILY@ 1600 [facility] Last Admin: 12/22/17 16:01 Dose: 100 mls/hr Magnesium Sulfate 2 gm/ Premix 50 mls @ 25 mls/hr IV Q6H [facility] Stop: 12/24/17 05:59 Last Admin: 12/23/17 09:58 Dose: 25 mls/hr Sodium Chloride (Normal Saline) 250 mls @ 25 mls/hr IV ASDIRECTED [facility] Piperacillin/Tazobactam/ (Dextrose 3.375 gm/ Premix) 50 mls @ 100 mls/hr IV Q6H [facility] Last Admin: 12/23/17 09:58 Dose: 100 mls/hr Lactobacillus Rhamnosus (Culturelle) 1 cap PO DAILY [facility] Last Admin: 12/23/17 09:50 Dose: Not Given Levalbuterol HCl (Xopenex) 1.25 mg INH Q6H PRN PRN Reason: * Loperamide HCl (Imodium) 2 mg PO ASDIRECTED PRN PRN Reason: LOOSE STOOL Metoclopramide HCl (Reglan) 10 mg IVPUSH Q6H [facility] Last Admin: 12/23/17 07:57 Dose: 10 mg Mometasone Furoate/Formoterol Fumar (Dulera 200-5 Mcg) 2 puff IH BIDRT [facility] Last Admin: 12/23/17 08:26 Dose: 2 puff Montelukast Sodium (Singulair) 10 mg PO BEDTIME [facility] Last Admin: 12/22/17 21:54 Dose: 10 mg Naloxone HCl (Narcan) 0.4 mg IV ASDIRECTED PRN PRN Reason: RESPIRATORY RATE LESS THAN 12 Last Admin: 12/22/17 08:20 Dose: 0.1 mg Ondansetron HCl (Zofran) 4 mg IVPUSH Q4H PRN PRN Reason: Nausea/Vomiting Last Admin: 12/23/17 02:19 Dose: 4 mg Sucralfate (Carafate) 0.5 gm PO QID [facility] Last Admin: 12/23/17 09:51 Dose: Not Given Discontinued Medications Acetaminophen (Tylenol Jr. [place]elta[place]) 960 mg PO ONETIME ONE Stop: 12/14/17 11:01 Last Admin: 12/14/17 11:09 Dose: 960 mg Acetaminophen (Tylenol Jr. [place]) 960 mg PO Q6H [facility] Last Admin: 12/18/17 23:34 Dose: Not Given Acetaminophen (Tylenol) Confirm Administered Dose 1,300 mg .ROUTE .STK-MED ONE Stop: 12/15/17 16:09 Last Admin: 12/15/17 16:20 Dose: Not Given Acetaminophen (Tylenol Extra Strength) 1,000 mg PO Q6H [facility] Last Admin: 12/22/17 03:34 Dose: Not Given Albuterol/Ipratropium (Duoneb 3.0-0.5 Mg/3 Ml) 3 ml NEB ONETIME ONE Stop: 12/14/17 12:16 Last Admin: 12/14/17 11:54 Dose: 3 ml Alprazolam (Xanax) 1 mg PO TID PRN PRN Reason: Anxiety Last Admin: 12/15/17 15:48 Dose: 1 mg Bisacodyl (Dulcolax) 10 mg RECTAL BID [facility] Last Admin: 12/21/17 09:03 Dose: Not Given Bupivacaine HCl (Marcaine 0.5%) Confirm Administered Dose 50 ml .ROUTE .STK-MED ONE Stop: 12/16/17 06:31 Bupivacaine HCl (Marcaine 0.5%) Confirm Administered Dose 50 ml .ROUTE .STK-MED ONE Stop: 12/18/17 10:22 Last Admin: 12/18/17 10:15 Dose: 50 ml Bupivacaine HCl (Marcaine 0.5%) Confirm Administered Dose 50 ml .ROUTE .STK-MED ONE Stop: 12/20/17 06:33 Last Admin: 12/20/17 08:04 Dose: 10 ml Bupivacaine HCl/Epinephrine Bitart (Marcaine 0.5%/Epinephrine 1:200,000) Confirm Administered Dose 50 ml .ROUTE .[facility]-MED ONE Stop: 12/14/17 12:42 Last Admin: 12/14/17 13:03 Dose: 10 ml Ropivacaine 40 ml/Dexamethasone 8 mg/Epinephrine HCl 0.4 mg/ Sodium Chloride 37.6 ml 0 ml NERVRT ONETIME ONE Stop: 12/14/17 12:01 Last Admin: 12/14/17 12:52 Dose: 2 syringe Ropivacaine 40 ml/Dexamethasone 8 mg/Epinephrine HCl 0.4 mg/ Sodium Chloride 37.6 ml 0 ml NERVRT ONETIME ONE Stop: 12/16/17 07:16 Last Admin: 12/16/17 09:30 Dose: Not Given Ropivacaine 40 ml/Dexamethasone 8 mg/Epinephrine HCl 0.4 mg/ Sodium Chloride 37.6 ml 0 ml NERVRT ONETIME ONE Stop: 12/18/17 09:31 Last Admin: 12/18/17 10:44 Dose: 80 syringe Ropivacaine 40 ml/Dexamethasone 8 mg/Epinephrine HCl 0.4 mg/ Sodium Chloride 37.6 ml 0 ml NERVRT ONETIME ONE Stop: 12/20/17 07:16 Last Admin: 12/20/17 07:30 Dose: 80 syringe Dexamethasone (Dexamethasone) Confirm Administered Dose 4 mg .ROUTE .[facility]-MED ONE Stop: 12/14/17 12:12 Dexamethasone (Dexamethasone) Confirm Administered Dose 4 mg .ROUTE .[facility]-MED ONE Stop: 12/18/17 08:55 Dexamethasone (Dexamethasone) Confirm Administered Dose 4 mg .ROUTE .[facility]-MED ONE Stop: 12/22/17 12:11 Docusate Sodium (Colace 50 Mg/5 Ml Liquid) 100 mg JTUBE BID [facility] Last Admin: 12/22/17 11:55 Dose: Not Given Erythromycin Ethylsuccinate (Eryped 400) 250 mg JTUBE QID [facility] Last Admin: 12/22/17 05:57 Dose: 250 mg Fentanyl (Sublimaze) Confirm Administered Dose 250 mcg .ROUTE .STK-MED ONE Stop: 12/14/17 12:11 Fentanyl (Sublimaze) Confirm Administered Dose 250 mcg .ROUTE .STK-MED ONE Stop: 12/14/17 12:55 Fentanyl (Sublimaze) Confirm Administered Dose 250 mcg .ROUTE .STK-MED ONE Stop: 12/18/17 11:12 Fentanyl (Sublimaze) Confirm Administered Dose 100 mcg .ROUTE .STK-MED ONE Stop: 12/20/17 07:11 Fentanyl (Sublimaze) Confirm Administered Dose 250 mcg .ROUTE .STK-MED ONE Stop: 12/22/17 12:11 Fentanyl (Sublimaze) Confirm Administered Dose 100 mcg .ROUTE .STK-MED ONE Stop: 12/22/17 13:15 Fentanyl (Sublimaze) Confirm Administered Dose 100 mcg .ROUTE .STK-MED ONE Stop: 12/22/17 13:45 Fentanyl Citrate (Fentanyl) Confirm Administered Dose 500 mcg .ROUTE .STK-MED ONE Stop: 12/18/17 08:56 Glycopyrrolate (Robinul) Confirm Administered Dose 1 mg .ROUTE .STK-MED ONE Stop: 12/14/17 12:12 Glycopyrrolate (Robinul) Confirm Administered Dose 1 mg .ROUTE .STK-MED ONE Stop: 12/18/17 08:55 Glycopyrrolate (Robinul) Confirm Administered Dose 1 mg .ROUTE .STK-MED ONE Stop: 12/22/17 12:11 Heparin Sodium (Porcine) (Heparin Lock Flush 100 Units/Ml) Confirm Administered Dose 500 units .ROUTE .STK-MED ONE Stop: 12/18/17 07:02 Heparin Sodium (Porcine) (Heparin Lock Flush 100 Units/Ml) Confirm Administered Dose 500 units .ROUTE .STK-MED ONE Stop: 12/18/17 10:26 Hydromorphone HCl (Dilaudid Thermostat Mechanic 15 Mg In Ns 30 Ml) 0 mg IV ASDIRECTED PRN; Protocol PRN Reason: PAIN Last Admin: 12/19/17 15:39 Dose: 15 mg Hydromorphone HCl (Dilaudid) 1 mg IVPUSH Q1H PRN PRN Reason: Pain Last Admin: 12/17/17 10:30 Dose: 1 mg Hydromorphone HCl (Dilaudid Thermostat Mechanic 15 Mg In Ns 30 Ml) 0 mg IV ASDIRECTED PRN; Protocol PRN Reason: Pain Last Admin: 12/22/17 01:33 Dose: 15 mg Hydroxyzine HCl (Vistaril) 100 mg IM Q4H PRN PRN Reason: Pain Dextrose/Lactated Ringer's (Dextrose 5%-Lactated Ringers) 1,000 mls @ 100 mls/ hr IV ASDIRECTED [facility] Last Admin: 12/14/17 11:10 Dose: 100 mls/hr Cefoxitin Sodium 2 gm/ Sodium (Chloride) 50 mls @ 100 mls/hr IV ONETIME ONE Stop: 12/14/17 12:29 Last Admin: 12/14/17 11:54 Dose: 100 mls/hr Lidocaine HCl/Dextrose (Lidocaine 2 Gm/D5w 500 Ml) 2 gm in 500 mls @ 22.5 mls/ hr IV .[id number] [facility] Stop: 12/15/17 14:00 Last Admin: 12/15/17 10:01 Dose: 0 mg/min, 22.5 mls/hr Dextrose/Lactated Ringer's (Dextrose 5%-Lactated Ringers) 1,000 mls @ 150 mls/ hr IV ASDIRECTED [facility] Last Admin: 12/15/17 06:34 Dose: 150 mls/hr Multivitamins/Minerals 10 ml/Thiamine HCl 100 mg/ Chromium/Copper/Manganese/ Seleni/Zn 1 ml/ Dextrose/Lactated Ringer's 1,012 mls @ 150 mls/hr IV DAILY@ 1600 [facility] Last Admin: 12/17/17 17:00 Dose: 150 mls/hr Cefoxitin Sodium 2 gm/ Sodium (Chloride) 50 mls @ 100 mls/hr IV Q6H [facility] Stop: 12/15/17 06:29 Last Admin: 12/15/17 05:13 Dose: 100 mls/hr Dextrose/Lactated Ringer's (Dextrose 5%-Lactated Ringers) 1,000 mls @ 100 mls/ hr IV ASDIRECTED [facility] Last Admin: 12/18/17 13:06 Dose: 100 mls/hr Lidocaine HCl (Xylocaine-Mpf 1%) Confirm Administered Dose 2 mls @ as directed .ROUTE .STK-MED ONE Stop: 12/16/17 07:33 Magnesium Sulfate 2 gm/ Premix 50 mls @ 25 mls/hr IV Q6H [facility] Stop: 12/18/17 05:59 Last Admin: 12/18/17 12:35 Dose: 25 mls/hr Multivitamins/Minerals 10 ml/Thiamine HCl 200 mg/ Magnesium Sulfate 2 gm/ Folic Acid 1 mg / Lactated Ringer's 1,016.2 mls @ 256 mls/hr IV ONETIME ONE Stop: 12/17/17 12:58 Last Admin: 12/17/17 10:32 Dose: 256 mls/hr Meropenem 500 mg/ Sodium (Chloride) 50 mls @ 100 mls/hr IV ONCALL ONE Stop: 12/18/17 09:59 Last Admin: 12/18/17 10:06 Dose: 100 mls/hr Ketamine HCl 100 mg/ Sodium (Chloride) 100 mls @ 17.1 mls/hr IV ASDIRECTED [facility] Stop: 12/18/17 11:30 Lidocaine HCl/Dextrose (Lidocaine 2 Gm/D5w 500 Ml) 2 gm in 500 mls @ 22.5 mls/ hr IV .[id number] [facility] Stop: 12/19/17 14:00 Last Admin: 12/19/17 07:46 Dose: 1.5 mg/min, 22.5 mls/hr Linezolid (Zyvox) Confirm Administered Dose 100 mls @ as directed .ROUTE .STK- MED ONE Stop: 12/18/17 07:02 Multivitamins/Minerals 10 ml/Thiamine HCl 100 mg/ Chromium/Copper/Manganese/ Seleni/Zn 1 ml/ Dextrose/Lactated Ringer's 1,012 mls @ 175 mls/hr IV DAILY@ 1600 [facility] Last Admin: 12/19/17 18:13 Dose: 175 mls/hr Dextrose/Lactated Ringer's (Dextrose 5%-Lactated Ringers) 1,000 mls @ 175 mls/ hr IV ASDIRECTED [facility] Last Admin: 12/20/17 05:34 Dose: 175 mls/hr Meropenem 500 mg/ Sodium (Chloride) 50 mls @ 100 mls/hr IV Q6H [facility] Stop: 12/19/17 10:29 Last Admin: 12/19/17 11:21 Dose: 100 mls/hr Acetaminophen 1,000 mg/ Premix 100 mls @ 400 mls/hr IV NOW ONE Stop: 12/18/17 22:14 Last Admin: 12/18/17 21:58 Dose: 400 mls/hr Lactated Ringer's (Ringers, Lactated) 500 mls @ 500 mls/hr IV ONETIME ONE Stop: 12/19/17 18:59 Last Admin: 12/19/17 18:13 Dose: 500 mls/hr Cefazolin Sodium/Dextrose 2 gm (/ Premix) 50 mls @ 100 mls/hr IV ONETIME ONE Stop: 12/22/17 11:29 Last Admin: 12/22/17 14:51 Dose: Not Given Metronidazole 500 mg/ Premix 100 mls @ 100 mls/hr IV ONETIME ONE Stop: 12/22/17 11:59 Last Admin: 12/22/17 14:51 Dose: Not Given Sodium Chloride (Normal Saline) 100 mls @ 3 mls/sec IV ASDIRECTED ALEX Stop: 12/22/17 18:00 Last Admin: 12/22/17 15:57 Dose: 3 mls/sec Piperacillin Sod/Tazobactam (Sod 3.375 gm/ Sodium Chloride) 50 mls @ 100 mls/ hr IV Q8H [facility] Last Admin: 12/23/17 03:38 Dose: 100 mls/hr Iohexol (Omnipaque-300) 50 ml IVPUSH . DIRECTED PRN PRN Reason: RADIOLOGY EXAM Stop: 12/16/17 03:52 Last Admin: 12/15/17 04:08 Dose: 50 ml Iohexol (Omnipaque-300) 50 ml PO .ASDIRECTED ALEX Stop: 12/17/17 11:00 Last Admin: 12/17/17 10:57 Dose: 50 ml Iohexol (Omnipaque-300) 50 ml PO .ASDIRECTED STA Stop: 12/19/17 03:19 Last Admin: 12/19/17 03:28 Dose: 50 ml Iopamidol (Isovue-370 (76%)) 100 ml IV . DIRECTED ALEX Stop: 12/22/17 18:00 Last Admin: 12/22/17 15:57 Dose: 100 ml Ketamine HCl (Ketalar) 29 mg IV ONETIME ONE Stop: 12/14/17 12:01 Last Admin: 12/14/17 20:12 Dose: Not Given Ketamine HCl (Ketalar) 29 mg IV ONETIME ONE Stop: 12/18/17 09:31 Last Admin: 12/18/17 20:20 Dose: Not Given Labetalol HCl (Normodyne) Confirm Administered Dose 20 mg .ROUTE .STK-MED ONE Stop: 12/18/17 11:38 Lidocaine HCl (Xylocaine 2%) 100 mg IVPUSH ONETIME ONE Stop: 12/14/17 12:01 Last Admin: 12/14/17 20:13 Dose: Not Given Lidocaine HCl (Xylocaine 2%) 100 mg IVPUSH ONETIME ONE Stop: 12/18/17 09:31 Last Admin: 12/18/17 20:21 Dose: Not Given Lidocaine/Epinephrine (Xylocaine 1% With Epinephrine 1:100,000) Confirm Administered Dose 50 ml .ROUTE .STK-MED ONE Stop: 12/16/17 06:31 Lidocaine/Epinephrine (Xylocaine 1% With Epinephrine 1:100,000) Confirm Administered Dose 50 ml .ROUTE .STK-MED ONE Stop: 12/18/17 10:22 Last Admin: 12/18/17 10:15 Dose: 50 ml Lidocaine/Epinephrine (Xylocaine 1% With Epinephrine 1:100,000) Confirm Administered Dose 50 ml .ROUTE .STK-MED ONE Stop: 12/20/17 06:33 Last Admin: 12/20/17 08:05 Dose: 20 ml Lorazepam (Ativan) 1 mg IVPUSH Q2H PRN PRN Reason: Nausea Last Admin: 12/21/17 17:09 Dose: 1 mg Lorazepam (Ativan) 0.25 mg IVPUSH ONETIME STA Stop: 12/22/17 03:02 Last Admin: 12/22/17 03:30 Dose: 0.25 mg Magnesium Citrate (Citrate Of Magnesia) 296 ml JTUBE ONETIME ONE Stop: 12/17/17 18:44 Last Admin: 12/17/17 21:14 Dose: 296 ml Magnesium Citrate (Citrate Of Magnesia) 296 ml PO ONETIME ONE Stop: 12/19/17 09:01 Last Admin: 12/19/17 10:39 Dose: 296 ml Magnesium Citrate (Citrate Of Magnesia) 296 ml JTUBE ONETIME ONE Stop: 12/21/17 09:01 Last Admin: 12/21/17 10:10 Dose: 296 ml Magnesium Hydroxide (Milk Of Magnesia) 30 ml JTUBE BID [facility] Last Admin: 12/21/17 09:17 Dose: 30 ml Meropenem (Merrem) Confirm Administered Dose 500 mg .ROUTE .STK-MED ONE Stop: 12/14/17 13:00 Last Admin: 12/14/17 13:03 Dose: 500 mg Meropenem (Merrem) Confirm Administered Dose 500 mg .ROUTE .STK-MED ONE Stop: 12/16/17 06:31 Meropenem (Merrem) Confirm Administered Dose 500 mg .ROUTE .STK-MED ONE Stop: 12/18/17 07:01 Last Admin: 12/18/17 11:28 Dose: 500 mg Meropenem (Merrem) Confirm Administered Dose 500 mg .ROUTE .STK-MED ONE Stop: 12/20/17 06:33 Metoclopramide HCl (Reglan) 10 mg IVPUSH Q6H [facility] Last Admin: 12/16/17 02:32 Dose: 10 mg Midazolam HCl (Versed 1 Mg/Ml) Confirm Administered Dose 2 mg .ROUTE .STK-MED ONE Stop: 12/20/17 07:11 Neostigmine Methylsulfate (Neostigmine) Confirm Administered Dose 5 mg .ROUTE .STK-MED ONE Stop: 12/14/17 12:12 Neostigmine Methylsulfate (Neostigmine) Confirm Administered Dose 5 mg .ROUTE .STK-MED ONE Stop: 12/18/17 08:55 Neostigmine Methylsulfate (Neostigmine) Confirm Administered Dose 5 mg .ROUTE .STK-MED ONE Stop: 12/22/17 12:11 Scopolamine Patch (Check) 1 each TOP DAILY [facility] Last Admin: 12/22/17 11:55 Dose: Not Given Ondansetron HCl (Zofran) Confirm Administered Dose 4 mg .ROUTE .STK-MED ONE Stop: 12/14/17 12:12 Ondansetron HCl (Zofran) Confirm Administered Dose 4 mg .ROUTE .STK-MED ONE Stop: 12/18/17 08:55 Ondansetron HCl (Zofran) Confirm Administered Dose 4 mg .ROUTE .STK-MED ONE Stop: 12/20/17 07:19 Ondansetron HCl (Zofran) Confirm Administered Dose 4 mg .ROUTE .STK-MED ONE Stop: 12/22/17 12:11 Propofol (Diprivan 20 Ml) Confirm Administered Dose 200 mg .ROUTE .STK-MED ONE Stop: 12/14/17 12:12 Propofol (Diprivan 20 Ml) Confirm Administered Dose 200 mg .ROUTE .STK-MED ONE Stop: 12/16/17 07:46 Propofol (Diprivan 20 Ml) Confirm Administered Dose 200 mg .ROUTE .STK-MED ONE Stop: 12/18/17 08:55 Propofol (Diprivan 20 Ml) Confirm Administered Dose 200 mg .ROUTE .STK-MED ONE Stop: 12/20/17 07:11 Propofol (Diprivan 20 Ml) Confirm Administered Dose 200 mg .ROUTE .STK-MED ONE Stop: 12/20/17 07:46 Propofol (Diprivan 20 Ml) Confirm Administered Dose 200 mg .ROUTE .ST-MED ONE Stop: 12/22/17 12:11 Rocuronium [place] (Zemuron) Confirm Administered Dose 50 mg .ROUTE .STK-MED ONE Stop: 12/14/17 12:12 Rocuronium [place] (Zemuron) Confirm Administered Dose 50 mg .ROUTE .STK-MED ONE Stop: 12/18/17 08:55 Rocuronium [place] (Zemuron) Confirm Administered Dose 50 mg .ROUTE .STK-MED ONE Stop: 12/22/17 12:11 Scopolamine (Transderm-Scop) 1.5 mg TOP Q72H [facility] Stop: 12/16/17 09:31 Last Admin: 12/14/17 10:08 Dose: 1.5 mg Scopolamine (Transderm-Scop) 1.5 mg TRDERM Q72H [facility] Last Admin: 12/22/17 05:54 Dose: 1.5 mg Succinylcholine Chloride (Quelicin) Confirm Administered Dose 200 mg .ROUTE .STK -MED ONE Stop: 12/18/17 08:55 Succinylcholine Chloride (Quelicin) Confirm Administered Dose 200 mg .ROUTE .STK -MED ONE Stop: 12/22/17 12:11 Tramadol HCl (Ultram) 50 - 100 mg PO Q6H PRN PRN Reason: Pain Last Admin: 12/22/17 01:17 Dose: 100 mg - Exam General: Alert, Oriented Lungs: Clear to Auscultation, Normal Respiratory Effort GI/Abdominal Exam: Soft, Tender Extremities: Non-Tender Peripheral Pulses: 1+: Radial (L), Radial (R) Skin: Warm, Dry, Intact - Problem List Review Problem List Initiated/Reviewed/Updated: Yes - Plan Plan:: Assessment/Plan: #1. Small bowel obstruction with s/p surgery. Abd. stable compared to yesterday. #2. Tachycardia: Have started on Lopressor. #3. Liver dysfunction: This was elevated yesterday ant improving presently.
[2017-12-23] MEDS ORDERED: Metoprolol Tartrate 5 MG in Sodium Chloride 0.9% 50 ML IV SCH (13:00)
[2017-12-23] MEDS: Metoprolol Tartrate 5 MG/5 ML SDV IV SCH ×3 (13:19→21:02)
[2017-12-23] MEDS: MVI, Adult with Vitamin K 10 ML, Thiamine 100 MG, Chromium/Copper/Mang/Selen/Zn 1 ML in... IV SCH ×4 (16:49)
--- NOTE | 2017-12-23 20:22 | PCM.PNPP ---
- General Info Date of Service: 12/23/17 Functional Status: Reports: Pain Controlled - Review of Systems General: Reports: Weakness HEENT: Reports: No Symptoms Pulmonary: Reports: No Symptoms Cardiovascular: Reports: No Symptoms Gastrointestinal: Reports: Abdominal Pain (incisional) Genitourinary: Reports: No Symptoms Musculoskeletal: Reports: No Symptoms Skin: Reports: No Symptoms Neurological: Reports: No Symptoms Psychiatric: Reports: No Symptoms - General Info Date of Service: 12/23/17 - Patient Data Vital Signs - Most Recent: Last Vital Signs Temp 100.2 F 12/23/17 19:57 Pulse 115 H 12/23/17 18:16 Resp 24 H 12/23/17 19:57 BP 112/54 L 12/23/17 19:57 Pulse Ox 93 L 12/23/17 19:57 Weight - Most Recent: 197 lb 4.808 oz I&O - Last 24 Hours: Intake & Output 12/23/17 12/23/17 12/23/17 06:59 14:59 22:59 Intake Total 1206 1330 Output Total 1500 270 450 Balance -294 -270 880 Lab Results - Last 24 Hours: Laboratory Results - last 24 hr 12/23/17 12/23/17 Range/Units 05:11 05:11 WBC 7.8 (4.5-11.0) K/uL RBC 3.88 (3.30-5.50) M/uL Hgb 11.4 L (12.0-15.0) g/dL Hct 35.0 L (36.0-48.0) % MCV 90 (80-98) fL MCH 29 (27-31) pg MCHC 33 (32-36) % Plt Count 439 H (150-400) K/uL Sodium 135 L (140-148) mmol/L Potassium 4.7 (3.6-5.2) mmol/L Chloride 103 (100-108) mmol/L Carbon Dioxide 26 (21-32) mmol/L Anion Gap 10.7 (5.0-14.0) mmol/L BUN 13 (7-18) mg/dL Creatinine 0.6 (0.6-1.0) mg/dL Est Cr Clr Drug Dosing 110.85 mL/min Estimated GFR (MDRD) > 60 (>60) Glucose 119 H (74-106) mg/dL Calcium 7.3 L (8.5-10.1) mg/dL Total Bilirubin 0.3 (0.2-1.0) mg/dL AST 51 H D (15-37) U/L ALT 197 H (12-78) U/L Alkaline Phosphatase 187 H (46-116) U/L Total Protein 4.4 L (6.4-8.2) g/dL Albumin 1.7 L (3.4-5.0) g/dL Globulin 2.7 (2.3-3.5) g/dL Albumin/Globulin Ratio 0.6 L (1.2-2.2) Micro Results - Last 24 Hours: Microbiology 12/23/17 18:16 ALYSSA Preparation - Final Other - Tongue Med Orders - Current: Current Medications Albuterol/Ipratropium (Duoneb 3.0-0.5 Mg/3 Ml) 3 ml INH QIDRT [facility] Last Admin: 12/23/17 15:09 Dose: 3 ml Albuterol/Ipratropium (Duoneb 3.0-0.5 Mg/3 Ml) 3 ml INH ASDIRECTED PRN PRN Reason: BREATHING Benzocaine/Menthol (Cepacol Sore Throat) 1 lozenge MUCMEM ASDIRECTED PRN PRN Reason: Sore Throat Last Admin: 12/22/17 21:29 Dose: 1 pack Cetirizine HCl (Zyrtec) 10 mg PO DAILY [facility] Last Admin: 12/23/17 09:51 Dose: Not Given Clonazepam (Klonopin) 1 mg PO BEDTIME [facility] Last Admin: 12/22/17 22:01 Dose: 1 mg Enoxaparin Sodium (Lovenox) 40 mg SUBCUT DAILY [facility] Last Admin: 12/23/17 09:56 Dose: 40 mg Escitalopram Oxalate (Lexapro) 10 mg PO DAILY [facility] Last Admin: 12/23/17 09:50 Dose: Not Given Fentanyl Citrate (Fentanyl In Ns 20 Mcg/Ml 30 Ml [employer]) 0 mcg IV ASDIRECTED [facility]; Protocol Last Admin: 12/22/17 16:40 Dose: 20 mcg Heparin Sodium (Porcine) (Heparin Lock Flush 100 Units/Ml) 500 units FLUSH ASDIRECTED PRN PRN Reason: Central line flush Last Admin: 12/23/17 04:30 Dose: 500 units Hydralazine HCl (Apresoline) 10 mg PO Q8HR [facility] Last Admin: 12/23/17 13:28 Dose: Not Given Hydromorphone HCl (Dilaudid) 2 mg PO Q4H PRN PRN Reason: Pain Dextrose/Lactated Ringer's (Dextrose 5%-Lactated Ringers) 1,000 mls @ 100 mls/ hr IV ASDIRECTED [facility] Last Admin: 12/23/17 10:46 Dose: 100 mls/hr Multivitamins/Minerals 10 ml/Thiamine HCl 100 mg/ Chromium/Copper/Manganese/ Seleni/Zn 1 ml/ Dextrose/Lactated Ringer's 1,012 mls @ 100 mls/hr IV DAILY@ 1600 [facility] Last Admin: 12/23/17 16:49 Dose: 100 mls/hr Magnesium Sulfate 2 gm/ Premix 50 mls @ 25 mls/hr IV Q6H [facility] Stop: 12/24/17 05:59 Last Admin: 12/23/17 16:48 Dose: 25 mls/hr Sodium Chloride (Normal Saline) 250 mls @ 25 mls/hr IV ASDIRECTED [facility] Piperacillin/Tazobactam/ (Dextrose 3.375 gm/ Premix) 50 mls @ 100 mls/hr IV Q6H [facility] Last Admin: 12/23/17 16:48 Dose: 100 mls/hr Lactobacillus Rhamnosus (Culturelle) 1 cap PO DAILY [facility] Last Admin: 12/23/17 09:50 Dose: Not Given Levalbuterol HCl (Xopenex) 1.25 mg INH Q6H PRN PRN Reason: * Loperamide HCl (Imodium) 2 mg PO ASDIRECTED PRN PRN Reason: LOOSE STOOL Metoclopramide HCl (Reglan) 10 mg IVPUSH Q6H [facility] Last Admin: 12/23/17 13:33 Dose: 10 mg Metoprolol Tartrate (Lopressor) 5 mg IV Q4H [facility] Last Admin: 12/23/17 16:49 Dose: 5 mg Mometasone Furoate/Formoterol Fumar (Dulera 200-5 Mcg) 2 puff IH BIDRT [facility] Last Admin: 12/23/17 08:26 Dose: 2 puff Montelukast Sodium (Singulair) 10 mg PO BEDTIME [facility] Last Admin: 03/31/18 21:54 Dose: 10 mg Naloxone HCl (Narcan) 0.4 mg IV ASDIRECTED PRN PRN Reason: RESPIRATORY RATE LESS THAN 12 Last Admin: 12/22/17 08:20 Dose: 0.1 mg Ondansetron HCl (Zofran) 4 mg IVPUSH Q4H PRN PRN Reason: Nausea/Vomiting Last Admin: 12/23/17 02:19 Dose: 4 mg Sucralfate (Carafate) 0.5 gm PO QID [facility] Last Admin: 12/23/17 16:45 Dose: Not Given Discontinued Medications Acetaminophen (Tylenol Jr. Meltaways) 960 mg PO ONETIME ONE Stop: 12/14/17 11:01 Last Admin: 12/14/17 11:09 Dose: 960 mg Acetaminophen (Tylenol Jr. Meltaways) 960 mg PO Q6H [facility] Last Admin: 12/18/17 23:34 Dose: Not Given Acetaminophen (Tylenol) Confirm Administered Dose 1,300 mg .ROUTE .STK-MED ONE Stop: 12/15/17 16:09 Last Admin: 12/15/17 16:20 Dose: Not Given Acetaminophen (Tylenol Extra Strength) 1,000 mg PO Q6H [facility] Last Admin: 12/22/17 03:34 Dose: Not Given Albuterol/Ipratropium (Duoneb 3.0-0.5 Mg/3 Ml) 3 ml NEB ONETIME ONE Stop: 12/14/17 12:16 Last Admin: 12/14/17 11:54 Dose: 3 ml Alprazolam (Xanax) 1 mg PO TID PRN PRN Reason: Anxiety Last Admin: 12/15/17 15:48 Dose: 1 mg Bisacodyl (Dulcolax) 10 mg RECTAL BID [facility] Last Admin: 12/21/17 09:03 Dose: Not Given Bupivacaine HCl (Marcaine 0.5%) Confirm Administered Dose 50 ml .ROUTE .STK-MED ONE Stop: 12/16/17 06:31 Bupivacaine HCl (Marcaine 0.5%) Confirm Administered Dose 50 ml .ROUTE .STK-MED ONE Stop: 12/18/17 10:22 Last Admin: 12/18/17 10:15 Dose: 50 ml Bupivacaine HCl (Marcaine 0.5%) Confirm Administered Dose 50 ml .ROUTE .STK-MED ONE Stop: 12/20/17 06:33 Last Admin: 12/20/17 08:04 Dose: 10 ml Bupivacaine HCl/Epinephrine Bitart (Marcaine 0.5%/Epinephrine 1:200,000) Confirm Administered Dose 50 ml .ROUTE .STK-MED ONE Stop: 12/14/17 12:42 Last Admin: 12/14/17 13:03 Dose: 10 ml Ropivacaine 40 ml/Dexamethasone 8 mg/Epinephrine HCl 0.4 mg/ Sodium Chloride 37.6 ml 0 ml NERVRT ONETIME ONE Stop: 12/14/17 12:01 Last Admin: 12/14/17 12:52 Dose: 2 syringe Ropivacaine 40 ml/Dexamethasone 8 mg/Epinephrine HCl 0.4 mg/ Sodium Chloride 37.6 ml 0 ml NERVRT ONETIME ONE Stop: 12/16/17 07:16 Last Admin: 12/16/17 09:30 Dose: Not Given Ropivacaine 40 ml/Dexamethasone 8 mg/Epinephrine HCl 0.4 mg/ Sodium Chloride 37.6 ml 0 ml NERVRT ONETIME ONE Stop: 12/18/17 09:31 Last Admin: 12/18/17 10:44 Dose: 80 syringe Ropivacaine 40 ml/Dexamethasone 8 mg/Epinephrine HCl 0.4 mg/ Sodium Chloride 37.6 ml 0 ml NERVRT ONETIME ONE Stop: 12/20/17 07:16 Last Admin: 12/20/17 07:30 Dose: 80 syringe Dexamethasone (Dexamethasone) Confirm Administered Dose 4 mg .ROUTE .STK-MED ONE Stop: 12/14/17 12:12 Dexamethasone (Dexamethasone) Confirm Administered Dose 4 mg .ROUTE .STK-MED ONE Stop: 12/18/17 08:55 Dexamethasone (Dexamethasone) Confirm Administered Dose 4 mg .ROUTE .STK-MED ONE Stop: 12/22/17 12:11 Docusate Sodium (Colace 50 Mg/5 Ml Liquid) 100 mg JTUBE BID [facility] Last Admin: 12/22/17 11:55 Dose: Not Given Erythromycin Ethylsuccinate (Eryped 400) 250 mg JTUBE QID [facility] Last Admin: 12/22/17 05:57 Dose: 250 mg Fentanyl (Sublimaze) Confirm Administered Dose 250 mcg .ROUTE .STK-MED ONE Stop: 12/14/17 12:11 Fentanyl (Sublimaze) Confirm Administered Dose 250 mcg .ROUTE .STK-MED ONE Stop: 12/14/17 12:55 Fentanyl (Sublimaze) Confirm Administered Dose 250 mcg .ROUTE .STK-MED ONE Stop: 12/18/17 11:12 Fentanyl (Sublimaze) Confirm Administered Dose 100 mcg .ROUTE .STK-MED ONE Stop: 12/20/17 07:11 Fentanyl (Sublimaze) Confirm Administered Dose 250 mcg .ROUTE .STK-MED ONE Stop: 12/22/17 12:11 Fentanyl (Sublimaze) Confirm Administered Dose 100 mcg .ROUTE .STK-MED ONE Stop: 12/22/17 13:15 Fentanyl (Sublimaze) Confirm Administered Dose 100 mcg .ROUTE .STK-MED ONE Stop: 12/22/17 13:45 Fentanyl Citrate (Fentanyl) Confirm Administered Dose 500 mcg .ROUTE .STK-MED ONE Stop: 12/18/17 08:56 Glycopyrrolate (Robinul) Confirm Administered Dose 1 mg .ROUTE .STK-MED ONE Stop: 12/14/17 12:12 Glycopyrrolate (Robinul) Confirm Administered Dose 1 mg .ROUTE .STK-MED ONE Stop: 12/18/17 08:55 Glycopyrrolate (Robinul) Confirm Administered Dose 1 mg .ROUTE .STK-MED ONE Stop: 12/22/17 12:11 Heparin Sodium (Porcine) (Heparin Lock Flush 100 Units/Ml) Confirm Administered Dose 500 units .ROUTE .STK-MED ONE Stop: 12/18/17 07:02 Heparin Sodium (Porcine) (Heparin Lock Flush 100 Units/Ml) Confirm Administered Dose 500 units .ROUTE .STK-MED ONE Stop: 12/18/17 10:26 Hydromorphone HCl (Dilaudid [employer] 15 Mg In Ns 30 Ml) 0 mg IV ASDIRECTED PRN; Protocol PRN Reason: PAIN Last Admin: 12/19/17 15:39 Dose: 15 mg Hydromorphone HCl (Dilaudid) 1 mg IVPUSH Q1H PRN PRN Reason: Pain Last Admin: 12/17/17 10:30 Dose: 1 mg Hydromorphone HCl (Dilaudid [employer] 15 Mg In Ns 30 Ml) 0 mg IV ASDIRECTED PRN; Protocol PRN Reason: Pain Last Admin: 12/22/17 01:33 Dose: 15 mg Hydroxyzine HCl (Vistaril) 100 mg IM Q4H PRN PRN Reason: Pain Dextrose/Lactated Ringer's (Dextrose 5%-Lactated Ringers) 1,000 mls @ 100 [facility]ls[facility] Admin: 12/14/17 11:10 Dose: 100 mls/hr Cefoxitin Sodium 2 gm/ Sodium (Chloride) 50 mls @ 100 mls/hr IV ONETIME ONE Stop: 12/14/17 12:29 Last Admin: 12/14/17 11:54 Dose: 100 mls/hr Lidocaine HCl/Dextrose (Lidocaine 2 Gm/D5w 500 Ml) 2 gm in 500 mls @ 22.5 mls/ hr IV .[id number] [facility] Stop: 12/15/17 14:00 Last Admin: 12/15/17 10:01 Dose: 0 mg/min, 22.5 mls/hr Dextrose/Lactated Ringer's (Dextrose 5%-Lactated Ringers) 1,000 mls @ 150 [facility] Last Admin: 12/15/17 06:34 Dose: 150 mls/hr Multivitamins/Minerals 10 ml/Thiamine HCl 100 mg/ Chromium/Copper/Manganese/ Seleni/Zn 1 ml/ Dextrose/Lactated Ringer's 1,012 mls @ 150 mls/hr IV DAILY@ 1600 [facility] Last Admin: 12/17/17 17:00 Dose: 150 mls/hr Cefoxitin Sodium 2 gm/ Sodium (Chloride) 50 mls @ 100 mls/hr IV Q6H [facility] Stop: 12/15/17 06:29 Last Admin: 12/15/17 05:13 Dose: 100 mls/hr Dextrose/Lactated Ringer's (Dextrose 5%-Lactated Ringers) 1,000 mls @ 100 [facility]ls/ [facility] Last Admin: 12/18/17 13:06 Dose: 100 mls/hr Lidocaine HCl (Xylocaine-Mpf 1%) Confirm Administered Dose 2 mls @ as directed .ROUTE .STK-MED ONE Stop: 12/16/17 07:33 Magnesium Sulfate 2 gm/ Premix 50 mls @ 25 mls/hr IV Q6H [facility] Stop: 12/18/17 05:59 Last Admin: 12/18/17 12:35 Dose: 25 mls/hr Multivitamins/Minerals 10 ml/Thiamine HCl 200 mg/ Magnesium Sulfate 2 gm/ Folic Acid 1 mg / Lactated Ringer's 1,016.2 mls @ 256 mls/hr IV ONETIME ONE Stop: 12/17/17 12:58 Last Admin: 12/17/17 10:32 Dose: 256 mls/hr Meropenem 500 mg/ Sodium (Chloride) 50 mls @ 100 mls/hr IV ONCALL ONE Stop: 12/18/17 09:59 Last Admin: 12/18/17 10:06 Dose: 100 mls/hr Ketamine HCl 100 mg/ Sodium (Chloride) 100 mls @ 17.1 mls/hr IV ASDIRECTED [facility] Stop: 12/18/17 11:30 Lidocaine HCl/Dextrose (Lidocaine 2 Gm/D5w 500 Ml) 2 gm in 500 mls @ 22.5 mls/ hr IV .[id number] [facility] Stop: 12/19/17 14:00 Last Admin: 12/19/17 07:46 Dose: 1.5 mg/min, 22.5 mls/hr Linezolid (Zyvox) Confirm Administered Dose 100 mls @ as directed .ROUTE .STK- MED ONE Stop: 12/18/17 07:02 Multivitamins/Minerals 10 ml/Thiamine HCl 100 mg/ Chromium/Copper/Manganese/ Seleni/Zn 1 ml/ Dextrose/Lactated Ringer's 1,012 mls @ 175 mls/hr IV DAILY@ 1600 [facility] Last Admin: 12/19/17 18:13 Dose: 175 mls/hr Dextrose/Lactated Ringer's (Dextrose 5%-Lactated Ringers) 1,000 mls @ 175 mls/ hr IV ASDIRECTED [facility] Last Admin: 12/20/17 05:34 Dose: 175 mls/hr Meropenem 500 mg/ Sodium (Chloride) 50 mls @ 100 mls/hr IV Q6H [facility] Stop: 12/19/17 10:29 Last Admin: 12/19/17 11:21 Dose: 100 mls/hr Acetaminophen 1,000 mg/ Premix 100 mls @ 400 mls/hr IV NOW ONE Stop: 12/18/17 22:14 Last Admin: 12/18/17 21:58 Dose: 400 mls/hr Lactated Ringer's (Ringers, Lactated) 500 mls @ 500 mls/hr IV ONETIME ONE Stop: 12/19/17 18:59 Last Admin: 12/19/17 18:13 Dose: 500 mls/hr Cefazolin Sodium/Dextrose 2 gm (/ Premix) 50 mls @ 100 mls/hr IV ONETIME ONE Stop: 12/22/17 11:29 Last Admin: 12/22/17 14:51 Dose: Not Given Metronidazole 500 mg/ Premix 100 mls @ 100 mls/hr IV ONETIME ONE Stop: 12/22/17 11:59 Last Admin: 12/22/17 14:51 Dose: Not Given Sodium Chloride (Normal Saline) 100 mls @ 3 mls/sec IV ASDIRECTED [facility] Stop: 12/22/17 18:00 Last Admin: 12/22/17 15:57 Dose: 3 mls/sec Piperacillin Sod/Tazobactam (Sod 3.375 gm/ Sodium Chloride) 50 mls @ 100 mls/ hr IV Q8H [facility] Last Admin: 12/23/17 03:38 Dose: 100 mls/hr Iohexol (Omnipaque-300) 50 ml IVPUSH . DIRECTED PRN PRN Reason: RADIOLOGY EXAM Stop: 12/16/17 03:52 Last Admin: 12/15/17 04:08 Dose: 50 ml Iohexol (Omnipaque-300) 50 ml PO .ASDIRECTED [facility] Stop: 12/17/17 11:00 Last Admin: 12/17/17 10:57 Dose: 50 ml Iohexol (Omnipaque-300) 50 ml PO .ASDIRECTED [facility] Stop: 12/19/17 03:19 Last Admin: 12/19/17 03:28 Dose: 50 ml Iopamidol (Isovue-370 (76%)) 100 ml IV . DIRECTED [facility] Stop: 12/22/17 18:00 Last Admin: 12/22/17 15:57 Dose: 100 ml Ketamine HCl (Ketalar) 29 mg IV ONETIME ONE Stop: 12/14/17 12:01 Last Admin: 12/14/17 20:12 Dose: Not Given Ketamine HCl (Ketalar) 29 mg IV ONETIME ONE Stop: 12/18/17 09:31 Last Admin: 12/18/17 20:20 Dose: Not Given Labetalol HCl (Normodyne) Confirm Administered Dose 20 mg .ROUTE .STK-MED ONE Stop: 12/18/17 11:38 Lidocaine HCl (Xylocaine 2%) 100 mg IVPUSH ONETIME ONE Stop: 12/14/17 12:01 Last Admin: 12/14/17 20:13 Dose: Not Given Lidocaine HCl (Xylocaine 2%) 100 mg IVPUSH ONETIME ONE Stop: 12/18/17 09:31 Last Admin: 12/18/17 20:21 Dose: Not Given Lidocaine/Epinephrine (Xylocaine 1% With Epinephrine 1:100,000) Confirm Administered Dose 50 ml .ROUTE .STK-MED ONE Stop: 12/16/17 06:31 Lidocaine/Epinephrine (Xylocaine 1% With Epinephrine 1:100,000) Confirm Administered Dose 50 ml .ROUTE .STK-MED ONE Stop: 12/18/17 10:22 Last Admin: 12/18/17 10:15 Dose: 50 ml Lidocaine/Epinephrine (Xylocaine 1% With Epinephrine 1:100,000) Confirm Administered Dose 50 ml .ROUTE .STK-MED ONE Stop: 12/20/17 06:33 Last Admin: 12/20/17 08:05 Dose: 20 ml Lorazepam (Ativan) 1 mg IVPUSH Q2H PRN PRN Reason: Nausea Last Admin: 12/21/17 17:09 Dose: 1 mg Lorazepam (Ativan) 0.25 mg IVPUSH ONETIME [facility] Stop: 12/22/17 03:02 Last Admin: 12/22/17 03:30 Dose: 0.25 mg Magnesium Citrate (Citrate Of Magnesia) 296 ml JTUBE ONETIME ONE Stop: 12/17/17 18:44 Last Admin: 12/17/17 21:14 Dose: 296 ml Magnesium Citrate (Citrate Of Magnesia) 296 ml PO ONETIME ONE Stop: 12/19/17 09:01 Last Admin: 12/19/17 10:39 Dose: 296 ml Magnesium Citrate (Citrate Of Magnesia) 296 ml JTUBE ONETIME ONE Stop: 12/21/17 09:01 Last Admin: 12/21/17 10:10 Dose: 296 ml Magnesium Hydroxide (Milk Of Magnesia) 30 ml JTUBE BID [facility] Last Admin: 12/21/17 09:17 Dose: 30 ml Meropenem (Merrem) Confirm Administered Dose 500 mg .ROUTE .STK-MED ONE Stop: 12/14/17 13:00 Last Admin: 12/14/17 13:03 Dose: 500 mg Meropenem (Merrem) Confirm Administered Dose 500 mg .ROUTE .ST-MED ONE Stop: 12/16/17 06:31 Meropenem (Merrem) Confirm Administered Dose 500 mg .ROUTE .STK-MED ONE Stop: 12/18/17 07:01 Last Admin: 12/18/17 11:28 Dose: 500 mg Meropenem (Merrem) Confirm Administered Dose 500 mg .ROUTE .ST-MED ONE Stop: 12/20/17 06:33 Metoclopramide HCl (Reglan) 10 mg IVPUSH Q6H [facility] Last Admin: 12/16/17 02:32 Dose: 10 mg Midazolam HCl (Versed 1 Mg/Ml) Confirm Administered Dose 2 mg .ROUTE .ST-MED ONE Stop: 12/20/17 07:11 Neostigmine Methylsulfate (Neostigmine) Confirm Administered Dose 5 mg .ROUTE .ST-MED ONE Stop: 12/14/17 12:12 Neostigmine Methylsulfate (Neostigmine) Confirm Administered Dose 5 mg .ROUTE .STK-MED ONE Stop: 12/18/17 08:55 Neostigmine Methylsulfate (Neostigmine) Confirm Administered Dose 5 mg .ROUTE .ST-MED ONE Stop: 12/22/17 12:11 Scopolamine Patch (Check) 1 each TOP DAILY [facility] Last Admin: 12/22/17 11:55 Dose: Not Given Ondansetron HCl (Zofran) Confirm Administered Dose 4 mg .ROUTE .ST-MED ONE Stop: 12/14/17 12:12 Ondansetron HCl (Zofran) Confirm Administered Dose 4 mg .ROUTE .STK-MED ONE Stop: 12/18/17 08:55 Ondansetron HCl (Zofran) Confirm Administered Dose 4 mg .ROUTE .STK-MED ONE Stop: 12/20/17 07:19 Ondansetron HCl (Zofran) Confirm Administered Dose 4 mg .ROUTE .STK-MED ONE Stop: 12/22/17 12:11 Propofol (Diprivan 20 Ml) Confirm Administered Dose 200 mg .ROUTE .STK-MED ONE Stop: 12/14/17 12:12 Propofol (Diprivan 20 Ml) Confirm Administered Dose 200 mg .ROUTE .STK-MED ONE Stop: 12/16/17 07:46 Propofol (Diprivan 20 Ml) Confirm Administered Dose 200 mg .ROUTE .STK-MED ONE Stop: 12/18/17 08:55 Propofol (Diprivan 20 Ml) Confirm Administered Dose 200 mg .ROUTE .STK-MED ONE Stop: 12/20/17 07:11 Propofol (Diprivan 20 Ml) Confirm Administered Dose 200 mg .ROUTE .STK-MED ONE Stop: 12/20/17 07:46 Propofol (Diprivan 20 Ml) Confirm Administered Dose 200 mg .ROUTE .STK-MED ONE Stop: 12/22/17 12:11 Rocuronium Seney (Zemuron) Confirm Administered Dose 50 mg .ROUTE .STK-MED ONE Stop: 12/14/17 12:12 Rocuronium Seney (Zemuron) Confirm Administered Dose 50 mg .ROUTE .STK-MED ONE Stop: 12/18/17 08:55 Rocuronium Seney (Zemuron) Confirm Administered Dose 50 mg .ROUTE .STK-MED ONE Stop: 12/22/17 12:11 Scopolamine (Transderm-Scop) 1.5 mg TOP Q72H [facility] Stop: 12/16/17 09:31 Last Admin: 12/14/17 10:08 Dose: 1.5 mg Scopolamine (Transderm-Scop) 1.5 mg TRDERM Q72H [facility] Last Admin: 12/22/17 05:54 Dose: 1.5 mg Succinylcholine Chloride (Quelicin) Confirm Administered Dose 200 mg .ROUTE .STK -MED ONE Stop: 12/18/17 08:55 Succinylcholine Chloride (Quelicin) Confirm Administered Dose 200 mg .ROUTE .STK -MED ONE Stop: 12/22/17 12:11 Tramadol HCl (Ultram) 50 - 100 mg PO Q6H PRN PRN Reason: Pain Last Admin: 12/22/17 01:17 Dose: 100 mg - Exam Quality Assessment: Supplemental Oxygen General: Moderate Distress HEENT: Pupils Equal, Pupils Reactive, Other (NG tube in place ) Neck: Supple Lungs: Clear to Auscultation, Normal Respiratory Effort Cardiovascular: Regular Rate, Regular Rhythm Extremities: Normal Inspection, No Pedal Edema Skin: Warm, Dry, Intact Wound/Incisions: Dressing Dry and Intact Neurological: No New Focal Deficit Psy/Mental Status: Normal Affect - Problem List Review Problem List Initiated/Reviewed/Updated: Yes - My Orders Last 24 Hours: My Active Orders 12/23/17 18:16 ALYSSA PREP [MYC] Routine - Assessment Assessment:: Assessment: Exploratory laparotomy for partial small bowel Elevated LFTS Plan: Check ALYSSA Prep on mouth Shavon Vo 12/23/17 - Plan Plan:: Assessment/Plan: #1. Small bowel obstruction with s/p surgery. Abd. stable compared to yesterday. #2. Tachycardia: Have started on Lopressor. #3. Liver dysfunction: This was elevated yesterday ant improving presently.
--- NOTE | 2017-12-23 20:37 | PCM.SURGPN ---
- General Info Date of Service: 12/23/17 POD#: 1 Functional Status: Reports: Pain Controlled - Review of Systems General: Reports: No Symptoms HEENT: Reports: No Symptoms, Other (reports mouth and tongue have been sore) Pulmonary: Reports: No Symptoms Cardiovascular: Reports: No Symptoms Gastrointestinal: Reports: No Symptoms Genitourinary: Reports: No Symptoms Musculoskeletal: Reports: No Symptoms Skin: Reports: No Symptoms Neurological: Reports: No Symptoms Psychiatric: Reports: Depression - Patient Data Vitals - Most Recent: Last Vital Signs Temp 100.2 F 12/23/17 19:57 Pulse 115 H 12/23/17 18:16 Resp 24 H 12/23/17 19:57 BP 112/54 L 12/23/17 19:57 Pulse Ox 93 L 12/23/17 19:57 Weight - Most Recent: 197 lb 4.808 oz I&O - Last 24 Hours: Intake & Output 12/23/17 12/23/17 12/23/17 06:59 14:59 22:59 Intake Total 1206 1330 Output Total 1500 270 450 Balance -294 -270 880 Lab Results Last 24 Hrs: Laboratory Results - last 24 hr 12/23/17 12/23/17 Range/Units 05:11 05:11 WBC 7.8 (4.5-11.0) K/uL RBC 3.88 (3.30-5.50) M/uL Hgb 11.4 L (12.0-15.0) g/dL Hct 35.0 L (36.0-48.0) % MCV 90 (80-98) fL MCH 29 (27-31) pg MCHC 33 (32-36) % Plt Count 439 H (150-400) K/uL Sodium 135 L (140-148) mmol/L Potassium 4.7 (3.6-5.2) mmol/L Chloride 103 (100-108) mmol/L Carbon Dioxide 26 (21-32) mmol/L Anion Gap 10.7 (5.0-14.0) mmol/L BUN 13 (7-18) mg/dL Creatinine 0.6 (0.6-1.0) mg/dL Est Cr Clr Drug Dosing 110.85 mL/min Estimated GFR (MDRD) > 60 (>60) Glucose 119 H (74-106) mg/dL Calcium 7.3 L (8.5-10.1) mg/dL Total Bilirubin 0.3 (0.2-1.0) mg/dL AST 51 H D (15-37) U/L ALT 197 H (12-78) U/L Alkaline Phosphatase 187 H (46-116) U/L Total Protein 4.4 L (6.4-8.2) g/dL Albumin 1.7 L (3.4-5.0) g/dL Globulin 2.7 (2.3-3.5) g/dL Albumin/Globulin Ratio 0.6 L (1.2-2.2) Ash Results Last 24 Hrs: Microbiology 12/23/17 18:16 ALYSSA Preparation - Final Other - Tongue Med Orders - Current: Current Medications Albuterol/Ipratropium (Duoneb 3.0-0.5 Mg/3 Ml) 3 ml INH QIDRT [facility] Last Admin: 12/23/17 15:09 Dose: 3 ml Albuterol/Ipratropium (Duoneb 3.0-0.5 Mg/3 Ml) 3 ml INH ASDIRECTED PRN PRN Reason: BREATHING Benzocaine/Menthol (Cepacol Sore Throat) 1 lozenge MUCMEM ASDIRECTED PRN PRN Reason: Sore Throat Last Admin: 12/22/17 21:29 Dose: 1 pack Cetirizine HCl (Zyrtec) 10 mg PO DAILY [facility] Last Admin: 12/23/17 09:51 Dose: Not Given Clonazepam (Klonopin) 1 mg PO BEDTIME [facility] Last Admin: 12/22/17 22:01 Dose: 1 mg Enoxaparin Sodium (Lovenox) 40 mg SUBCUT DAILY [facility] Last Admin: 12/23/17 09:56 Dose: 40 mg Escitalopram Oxalate (Lexapro) 10 mg PO DAILY [facility] Last Admin: 12/23/17 09:50 Dose: Not Given Fentanyl Citrate (Fentanyl In Ns 20 Mcg/Ml 30 Ml Newspaper Columnist) 0 mcg IV ASDIRECTED [facility]; Protocol Last Admin: 12/22/17 16:40 Dose: 20 mcg Heparin Sodium (Porcine) (Heparin Lock Flush 100 Units/Ml) 500 units FLUSH ASDIRECTED PRN PRN Reason: Central line flush Last Admin: 12/23/17 04:30 Dose: 500 units Hydralazine HCl (Apresoline) 10 mg PO Q8HR [facility] Last Admin: 12/23/17 13:28 Dose: Not Given Hydromorphone HCl (Dilaudid) 2 mg PO Q4H PRN PRN Reason: Pain Dextrose/Lactated Ringer's (Dextrose 5%-Lactated Ringers) 1,000 mls @ 100 mls/ hr IV ASDIRECTED [facility] Last Admin: 12/23/17 10:46 Dose: 100 mls/hr Multivitamins/Minerals 10 ml/Thiamine HCl 100 mg/ Chromium/Copper/Manganese/ Seleni/Zn 1 ml/ Dextrose/Lactated Ringer's 1,012 mls @ 100 mls/hr IV DAILY@ 1600 [facility] Last Admin: 12/23/17 16:49 Dose: 100 mls/hr Magnesium Sulfate 2 gm/ Premix 50 mls @ 25 mls/hr IV Q6H [facility] Stop: 12/24/17 05:59 Last Admin: 12/23/17 16:48 Dose: 25 mls/hr Sodium Chloride (Normal Saline) 250 mls @ 25 mls/hr IV ASDIRECTED [facility] Piperacillin/Tazobactam/ (Dextrose 3.375 gm/ Premix) 50 mls @ 100 mls/hr IV Q6H [facility] Last Admin: 12/23/17 16:48 Dose: 100 mls/hr Lactobacillus Rhamnosus (Culturelle) 1 cap PO DAILY [facility] Last Admin: 12/23/17 09:50 Dose: Not Given Levalbuterol HCl (Xopenex) 1.25 mg INH Q6H PRN PRN Reason: * Loperamide HCl (Imodium) 2 mg PO ASDIRECTED PRN PRN Reason: LOOSE STOOL Metoclopramide HCl (Reglan) 10 mg IVPUSH Q6H [facility] Last Admin: 12/23/17 13:33 Dose: 10 mg Metoprolol Tartrate (Lopressor) 5 mg IV Q4H [facility] Last Admin: 12/23/17 16:49 Dose: 5 mg Mometasone Furoate/Formoterol Fumar (Dulera 200-5 Mcg) 2 puff IH BIDRT [facility] Last Admin: 12/23/17 08:26 Dose: 2 puff Montelukast Sodium (Singulair) 10 mg PO BEDTIME [facility] Last Admin: 12/22/17 21:54 Dose: 10 mg Naloxone HCl (Narcan) 0.4 mg IV ASDIRECTED PRN PRN Reason: RESPIRATORY RATE LESS THAN 12 Last Admin: 12/22/17 08:20 Dose: 0.1 mg Ondansetron HCl (Zofran) 4 mg IVPUSH Q4H PRN PRN Reason: Nausea/Vomiting Last Admin: 12/23/17 02:19 Dose: 4 mg Sucralfate (Carafate) 0.5 gm PO QID [facility] Last Admin: 12/23/17 16:45 Dose: Not Given Discontinued Medications Acetaminophen (Tylenol Jr. Meltaways) 960 mg PO ONETIME ONE Stop: 12/14/17 11:01 Last Admin: 12/14/17 11:09 Dose: 960 mg Acetaminophen (Tylenol Jr. Meltaways) 960 mg PO Q6H [facility] Last Admin: 12/18/17 23:34 Dose: Not Given Acetaminophen (Tylenol) Confirm Administered Dose 1,300 mg .ROUTE .STK-MED ONE Stop: 12/15/17 16:09 Last Admin: 12/15/17 16:20 Dose: Not Given Acetaminophen (Tylenol Extra Strength) 1,000 mg PO Q6H [facility] Last Admin: 12/22/17 03:34 Dose: Not Given Albuterol/Ipratropium (Duoneb 3.0-0.5 Mg/3 Ml) 3 ml NEB ONETIME ONE Stop: 12/14/17 12:16 Last Admin: 12/14/17 11:54 Dose: 3 ml Alprazolam (Xanax) 1 mg PO TID PRN PRN Reason: Anxiety Last Admin: 12/15/17 15:48 Dose: 1 mg Bisacodyl (Dulcolax) 10 mg RECTAL BID [facility] Last Admin: 12/21/17 09:03 Dose: Not Given Bupivacaine HCl (Marcaine 0.5%) Confirm Administered Dose 50 ml .ROUTE .STK-MED ONE Stop: 12/16/17 06:31 Bupivacaine HCl (Marcaine 0.5%) Confirm Administered Dose 50 ml .ROUTE .STK-MED ONE Stop: 12/18/17 10:22 Last Admin: 12/18/17 10:15 Dose: 50 ml Bupivacaine HCl (Marcaine 0.5%) Confirm Administered Dose 50 ml .ROUTE .STK-MED ONE Stop: 12/20/17 06:33 Last Admin: 12/20/17 08:04 Dose: 10 ml Bupivacaine HCl/Epinephrine Bitart (Marcaine 0.5%/Epinephrine 1:200,000) Confirm Administered Dose 50 ml .ROUTE .STK-MED ONE Stop: 12/14/17 12:42 Last Admin: 12/14/17 13:03 Dose: 10 ml Ropivacaine 40 ml/Dexamethasone 8 mg/Epinephrine HCl 0.4 mg/ Sodium Chloride 37.6 ml 0 ml NERVRT ONETIME ONE Stop: 12/14/17 12:01 Last Admin: 12/14/17 12:52 Dose: 2 syringe Ropivacaine 40 ml/Dexamethasone 8 mg/Epinephrine HCl 0.4 mg/ Sodium Chloride 37.6 ml 0 ml NERVRT ONETIME ONE Stop: 12/16/17 07:16 Last Admin: 12/16/17 09:30 Dose: Not Given Ropivacaine 40 ml/Dexamethasone 8 mg/Epinephrine HCl 0.4 mg/ Sodium Chloride 37.6 ml 0 ml NERVRT ONETIME ONE Stop: 12/18/17 09:31 Last Admin: 12/18/17 10:44 Dose: 80 syringe Ropivacaine 40 ml/Dexamethasone 8 mg/Epinephrine HCl 0.4 mg/ Sodium Chloride 37.6 ml 0 ml NERVRT ONETIME ONE Stop: 12/20/17 07:16 Last Admin: 12/20/17 07:30 Dose: 80 syringe Dexamethasone (Dexamethasone) Confirm Administered Dose 4 mg .ROUTE .STK-MED ONE Stop: 12/14/17 12:12 Dexamethasone (Dexamethasone) Confirm Administered Dose 4 mg .ROUTE .STK-MED ONE Stop: 12/18/17 08:55 Dexamethasone (Dexamethasone) Confirm Administered Dose 4 mg .ROUTE .STK-MED ONE Stop: 12/22/17 12:11 Docusate Sodium (Colace 50 Mg/5 Ml Liquid) 100 mg JTUBE BID [facility] Last Admin: 12/22/17 11:55 Dose: Not Given Erythromycin Ethylsuccinate (Eryped 400) 250 mg JTUBE QID [facility] Last Admin: 12/22/17 05:57 Dose: 250 mg Fentanyl (Sublimaze) Confirm Administered Dose 250 mcg .ROUTE .STK-MED ONE Stop: 12/14/17 12:11 Fentanyl (Sublimaze) Confirm Administered Dose 250 mcg .ROUTE .STK-MED ONE Stop: 12/14/17 12:55 Fentanyl (Sublimaze) Confirm Administered Dose 250 mcg .ROUTE .STK-MED ONE Stop: 12/18/17 11:12 Fentanyl (Sublimaze) Confirm Administered Dose 100 mcg .ROUTE .STK-MED ONE Stop: 12/20/17 07:11 Fentanyl (Sublimaze) Confirm Administered Dose 250 mcg .ROUTE .STK-MED ONE Stop: 12/22/17 12:11 Fentanyl (Sublimaze) Confirm Administered Dose 100 mcg .ROUTE .STK-MED ONE Stop: 12/22/17 13:15 Fentanyl (Sublimaze) Confirm Administered Dose 100 mcg .ROUTE .STK-MED ONE Stop: 12/22/17 13:45 Fentanyl Citrate (Fentanyl) Confirm Administered Dose 500 mcg .ROUTE .STK-MED ONE Stop: 12/18/17 08:56 Glycopyrrolate (Robinul) Confirm Administered Dose 1 mg .ROUTE .STK-MED ONE Stop: 12/14/17 12:12 Glycopyrrolate (Robinul) Confirm Administered Dose 1 mg .ROUTE .STK-MED ONE Stop: 12/18/17 08:55 Glycopyrrolate (Robinul) Confirm Administered Dose 1 mg .ROUTE .STK-MED ONE Stop: 12/22/17 12:11 Heparin Sodium (Porcine) (Heparin Lock Flush 100 Units/Ml) Confirm Administered Dose 500 units .ROUTE .STK-MED ONE Stop: 12/18/17 07:02 Heparin Sodium (Porcine) (Heparin Lock Flush 100 Units/Ml) Confirm Administered Dose 500 units .ROUTE .STK-MED ONE Stop: 12/18/17 10:26 Hydromorphone HCl (Dilaudid Newspaper Columnist 15 Mg In Ns 30 Ml) 0 mg IV ASDIRECTED PRN; Protocol PRN Reason: PAIN Last Admin: 12/19/17 15:39 Dose: 15 mg Hydromorphone HCl (Dilaudid) 1 mg IVPUSH Q1H PRN PRN Reason: Pain Last Admin: 12/17/17 10:30 Dose: 1 mg Hydromorphone HCl (Dilaudid Newspaper Columnist 15 Mg In Ns 30 Ml) 0 mg IV ASDIRECTED PRN; Protocol PRN Reason: Pain Last Admin: 12/22/17 01:33 Dose: 15 mg Hydroxyzine HCl (Vistaril) 100 mg IM Q4H PRN PRN Reason: Pain Dextrose/Lactated Ringer's (Dextrose 5%-Lactated Ringers) 1,000 mls @ 100 [facility]ls/ [facility] Admin: 12/14/17 11:10 Dose: 100 mls/hr Cefoxitin Sodium 2 gm/ Sodium (Chloride) 50 mls @ 100 mls/hr IV ONETIME ONE Stop: 12/14/17 12:29 Last Admin: 12/14/17 11:54 Dose: 100 mls/hr Lidocaine HCl/Dextrose (Lidocaine 2 Gm/D5w 500 Ml) 2 gm in 500 mls @ 22.5 mls/ hr IV .[id number] [facility] Stop: 12/15/17 14:00 Last Admin: 12/15/17 10:01 Dose: 0 mg/min, 22.5 mls/hr Dextrose/Lactated Ringer's (Dextrose 5%-Lactated Ringers) 1,000 mls @ 150 [facility]ls[facility] Last Admin: 12/15/17 06:34 Dose: 150 mls/hr Multivitamins/Minerals 10 ml/Thiamine HCl 100 mg/ Chromium/Copper/Manganese/ Seleni/Zn 1 ml/ Dextrose/Lactated Ringer's 1,012 mls @ 150 mls/hr IV DAILY@ 1600 [facility] Last Admin: 12/17/17 17:00 Dose: 150 mls/hr Cefoxitin Sodium 2 gm/ Sodium (Chloride) 50 mls @ 100 mls/hr IV Q6H [facility] Stop: 12/15/17 06:29 Last Admin: 12/15/17 05:13 Dose: 100 mls/hr Dextrose/Lactated Ringer's (Dextrose 5%-Lactated Ringers) 1,000 mls @ 100 [facility]ls[facility] Last Admin: 12/18/17 13:06 Dose: 100 mls/hr Lidocaine HCl (Xylocaine-Mpf 1%) Confirm Administered Dose 2 mls @ as directed .ROUTE .STK-MED ONE Stop: 12/16/17 07:33 Magnesium Sulfate 2 gm/ Premix 50 mls @ 25 mls/hr IV Q6H [facility] Stop: 12/18/17 05:59 Last Admin: 12/18/17 12:35 Dose: 25 mls/hr Multivitamins/Minerals 10 ml/Thiamine HCl 200 mg/ Magnesium Sulfate 2 gm/ Folic Acid 1 mg / Lactated Ringer's 1,016.2 mls @ 256 mls/hr IV ONETIME ONE Stop: 12/17/17 12:58 Last Admin: 12/17/17 10:32 Dose: 256 mls/hr Meropenem 500 mg/ Sodium (Chloride) 50 mls @ 100 mls/hr IV ONCALL ONE Stop: 12/18/17 09:59 Last Admin: 12/18/17 10:06 Dose: 100 mls/hr Ketamine HCl 100 mg/ Sodium (Chloride) 100 mls @ 17.1 mls/hr IV ASDIRECTED [facility] Stop: 12/18/17 11:30 Lidocaine HCl/Dextrose (Lidocaine 2 Gm/D5w 500 Ml) 2 gm in 500 mls @ 22.5 mls/ hr IV .[id number] [facility] Stop: 12/19/17 14:00 Last Admin: 12/19/17 07:46 Dose: 1.5 mg/min, 22.5 mls/hr Linezolid (Zyvox) Confirm Administered Dose 100 mls @ as directed .ROUTE .STK- MED ONE Stop: 12/18/17 07:02 Multivitamins/Minerals 10 ml/Thiamine HCl 100 mg/ Chromium/Copper/Manganese/ Seleni/Zn 1 ml/ Dextrose/Lactated Ringer's 1,012 mls @ 175 mls/hr IV DAILY@ 1600 [facility] Last Admin: 12/19/17 18:13 Dose: 175 mls/hr Dextrose/Lactated Ringer's (Dextrose 5%-Lactated Ringers) 1,000 mls @ 175 mls/ hr IV ASDIRECTED [facility] Last Admin: 12/20/17 05:34 Dose: 175 mls/hr Meropenem 500 mg/ Sodium (Chloride) 50 mls @ 100 mls/hr IV Q6H [facility] Stop: 12/19/17 10:29 Last Admin: 12/19/17 11:21 Dose: 100 mls/hr Acetaminophen 1,000 mg/ Premix 100 mls @ 400 mls/hr IV NOW ONE Stop: 12/18/17 22:14 Last Admin: 12/18/17 21:58 Dose: 400 mls/hr Lactated Ringer's (Ringers, Lactated) 500 mls @ 500 mls/hr IV ONETIME ONE Stop: 12/19/17 18:59 Last Admin: 12/19/17 18:13 Dose: 500 mls/hr Cefazolin Sodium/Dextrose 2 gm (/ Premix) 50 mls @ 100 mls/hr IV ONETIME ONE Stop: 12/22/17 11:29 Last Admin: 12/22/17 14:51 Dose: Not Given Metronidazole 500 mg/ Premix 100 mls @ 100 mls/hr IV ONETIME ONE Stop: 12/22/17 11:59 Last Admin: 12/22/17 14:51 Dose: Not Given Sodium Chloride (Normal Saline) 100 mls @ 3 mls/sec IV ASDIRECTED [facility] Stop: 12/22/17 18:00 Last Admin: 12/22/17 15:57 Dose: 3 mls/sec Piperacillin Sod/Tazobactam (Sod 3.375 gm/ Sodium Chloride) 50 mls @ 100 mls/ hr IV Q8H [facility] Last Admin: 12/23/17 03:38 Dose: 100 mls/hr Iohexol (Omnipaque-300) 50 ml IVPUSH . DIRECTED PRN PRN Reason: RADIOLOGY EXAM Stop: 12/16/17 03:52 Last Admin: 12/15/17 04:08 Dose: 50 ml Iohexol (Omnipaque-300) 50 ml PO .ASDIRECTED [facility] Stop: 12/17/17 11:00 Last Admin: 12/17/17 10:57 Dose: 50 ml Iohexol (Omnipaque-300) 50 ml PO .ASDIRECTED [facility] Stop: 12/19/17 03:19 Last Admin: 12/19/17 03:28 Dose: 50 ml Iopamidol (Isovue-370 (76%)) 100 ml IV . DIRECTED [facility] Stop: 12/22/17 18:00 Last Admin: 12/22/17 15:57 Dose: 100 ml Ketamine HCl (Ketalar) 29 mg IV ONETIME ONE Stop: 12/14/17 12:01 Last Admin: 12/14/17 20:12 Dose: Not Given Ketamine HCl (Ketalar) 29 mg IV ONETIME ONE Stop: 12/18/17 09:31 Last Admin: 12/18/17 20:20 Dose: Not Given Labetalol HCl (Normodyne) Confirm Administered Dose 20 mg .ROUTE .STK-MED ONE Stop: 12/18/17 11:38 Lidocaine HCl (Xylocaine 2%) 100 mg IVPUSH ONETIME ONE Stop: 12/14/17 12:01 Last Admin: 12/14/17 20:13 Dose: Not Given Lidocaine HCl (Xylocaine 2%) 100 mg IVPUSH ONETIME ONE Stop: 12/18/17 09:31 Last Admin: 12/18/17 20:21 Dose: Not Given Lidocaine/Epinephrine (Xylocaine 1% With Epinephrine 1:100,000) Confirm Administered Dose 50 ml .ROUTE .STK-MED ONE Stop: 12/16/17 06:31 Lidocaine/Epinephrine (Xylocaine 1% With Epinephrine 1:100,000) Confirm Administered Dose 50 ml .ROUTE .STK-MED ONE Stop: 12/18/17 10:22 Last Admin: 12/18/17 10:15 Dose: 50 ml Lidocaine/Epinephrine (Xylocaine 1% With Epinephrine 1:100,000) Confirm Administered Dose 50 ml .ROUTE .STK-MED ONE Stop: 12/20/17 06:33 Last Admin: 12/20/17 08:05 Dose: 20 ml Lorazepam (Ativan) 1 mg IVPUSH Q2H PRN PRN Reason: Nausea Last Admin: 12/21/17 17:09 Dose: 1 mg Lorazepam (Ativan) 0.25 mg IVPUSH ONETIME [facility] Stop: 12/22/17 03:02 Last Admin: 12/22/17 03:30 Dose: 0.25 mg Magnesium Citrate (Citrate Of Magnesia) 296 ml JTUBE ONETIME ONE Stop: 12/17/17 18:44 Last Admin: 12/17/17 21:14 Dose: 296 ml Magnesium Citrate (Citrate Of Magnesia) 296 ml PO ONETIME ONE Stop: 12/19/17 09:01 Last Admin: 12/19/17 10:39 Dose: 296 ml Magnesium Citrate (Citrate Of Magnesia) 296 ml JTUBE ONETIME ONE Stop: 12/21/17 09:01 Last Admin: 12/21/17 10:10 Dose: 296 ml Magnesium Hydroxide (Milk Of Magnesia) 30 ml JTUBE BID [facility] Last Admin: 12/21/17 09:17 Dose: 30 ml Meropenem (Merrem) Confirm Administered Dose 500 mg .ROUTE .STK-MED ONE Stop: 12/14/17 13:00 Last Admin: 12/14/17 13:03 Dose: 500 mg Meropenem (Merrem) Confirm Administered Dose 500 mg .ROUTE .STK-MED ONE Stop: 12/16/17 06:31 Meropenem (Merrem) Confirm Administered Dose 500 mg .ROUTE .STK-MED ONE Stop: 12/18/17 07:01 Last Admin: 12/18/17 11:28 Dose: 500 mg Meropenem (Merrem) Confirm Administered Dose 500 mg .ROUTE .STK-MED ONE Stop: 12/20/17 06:33 Metoclopramide HCl (Reglan) 10 mg IVPUSH Q6H [facility] Last Admin: 12/16/17 02:32 Dose: 10 mg Midazolam HCl (Versed 1 Mg/Ml) Confirm Administered Dose 2 mg .ROUTE .STK-MED ONE Stop: 12/20/17 07:11 Neostigmine Methylsulfate (Neostigmine) Confirm Administered Dose 5 mg .ROUTE .STK-MED ONE Stop: 12/14/17 12:12 Neostigmine Methylsulfate (Neostigmine) Confirm Administered Dose 5 mg .ROUTE .STK-MED ONE Stop: 12/18/17 08:55 Neostigmine Methylsulfate (Neostigmine) Confirm Administered Dose 5 mg .ROUTE .STK-MED ONE Stop: 12/22/17 12:11 Scopolamine Patch (Check) 1 each TOP DAILY [facility] Last Admin: 12/22/17 11:55 Dose: Not Given Ondansetron HCl (Zofran) Confirm Administered Dose 4 mg .ROUTE .STK-MED ONE Stop: 12/14/17 12:12 Ondansetron HCl (Zofran) Confirm Administered Dose 4 mg .ROUTE .STK-MED ONE Stop: 12/18/17 08:55 Ondansetron HCl (Zofran) Confirm Administered Dose 4 mg .ROUTE .STK-MED ONE Stop: 12/20/17 07:19 Ondansetron HCl (Zofran) Confirm Administered Dose 4 mg .ROUTE .STK-MED ONE Stop: 12/22/17 12:11 Propofol (Diprivan 20 Ml) Confirm Administered Dose 200 mg .ROUTE .STK-MED ONE Stop: 12/14/17 12:12 Propofol (Diprivan 20 Ml) Confirm Administered Dose 200 mg .ROUTE .STK-MED ONE Stop: 12/16/17 07:46 Propofol (Diprivan 20 Ml) Confirm Administered Dose 200 mg .ROUTE .STK-MED ONE Stop: 12/18/17 08:55 Propofol (Diprivan 20 Ml) Confirm Administered Dose 200 mg .ROUTE .STK-MED ONE Stop: 12/20/17 07:11 Propofol (Diprivan 20 Ml) Confirm Administered Dose 200 mg .ROUTE .STK-MED ONE Stop: 12/20/17 07:46 Propofol (Diprivan 20 Ml) Confirm Administered Dose 200 mg .ROUTE .STK-MED ONE Stop: 12/22/17 12:11 Rocuronium [place] (Zemuron) Confirm Administered Dose 50 mg .ROUTE .STK-MED ONE Stop: 12/14/17 12:12 Rocuronium [place] (Zemuron) Confirm Administered Dose 50 mg .ROUTE .STK-MED ONE Stop: 12/18/17 08:55 Rocuronium [place] (Zemuron) Confirm Administered Dose 50 mg .ROUTE .STK-MED ONE Stop: 12/22/17 12:11 Scopolamine (Transderm-Scop) 1.5 mg TOP Q72H [facility] Stop: 12/16/17 09:31 Last Admin: 12/14/17 10:08 Dose: 1.5 mg Scopolamine (Transderm-Scop) 1.5 mg TRDERM Q72H [facility] Last Admin: 12/22/17 05:54 Dose: 1.5 mg Succinylcholine Chloride (Quelicin) Confirm Administered Dose 200 mg .ROUTE .STK -MED ONE Stop: 12/18/17 08:55 Succinylcholine Chloride (Quelicin) Confirm Administered Dose 200 mg .ROUTE .STK -MED ONE Stop: 12/22/17 12:11 Tramadol HCl (Ultram) 50 - 100 mg PO Q6H PRN PRN Reason: Pain Last Admin: 12/22/17 01:17 Dose: 100 mg - Exam Wound/Incisions: Dressing Dry and Intact Quality Assessment: Supplemental Oxygen, Central Line/PICC, Urine Catheter, DVT Prophylaxis General: Oriented, Moderate Distress HEENT: Pupils Equal, Pupils Reactive Neck: Supple Lungs: Clear to Auscultation, Normal Respiratory Effort Cardiovascular: Regular Rate, Regular Rhythm GI/Abdominal Exam: Soft, Tender Extremities: Normal Inspection, No Pedal Edema Skin: Warm, Dry, Intact Neurological: No New Focal Deficit Psy/Mental Status: Alert - Problem List Review Problem List Initiated/Reviewed/Updated: Yes - My Orders Last 24 Hours: Active Orders 24 hr Category Date Time Status Dressing Change [Wound Care] [RC] Q12H Care 12/23/17 08:51 Active NPO Now [Nothing per Oral Now Diet] [DIET] Diet 12/23/17 Lunch Active Abdomen 2V AP Flat Upright [CR] Routine Exams 12/23/17 09:28 Taken CBC W/O DIFF,HEMOGRAM [HEME] Timed Lab 12/24/17 05:11 Ordered COMPREHENSIVE METABOLIC PN,CMP [CHEM] Timed Lab 12/24/17 05:11 Ordered ALYSSA PREP [MYC] Routine Lab 12/23/17 18:16 Ordered Benzocaine/Cetylpyrd/Menthol [Cepacol Sore Throat] Med 12/22/17 19:53 Active 1 lozenge MUCMEM ASDIRECTED PRN Enoxaparin [Lovenox] Med 12/23/17 09:00 Active 40 mg SUBCUT DAILY Metoprolol Tartrate [Lopressor] Med 12/23/17 13:00 Active 5 mg IV Q4H Piperacillin/Tazobactam/Dext [Zosyn in Dextrose Iso- Med 12/23/17 10:00 Active Osmotic 3.375 GM] 3.375 gm Premix Bag 1 bag IV Q6H Sodium Chloride 0.9% [Normal Saline] 250 ml Med 12/22/17 21:00 Active IV ASDIRECTED Medication Orders Albuterol/Ipratropium (Duoneb 3.0-0.5 Mg/3 Ml) 3 ml INH QIDRT [facility] Last Admin: 12/23/17 15:09 Dose: 3 ml Admin: 12/23/17 11:38 Dose: 3 ml Admin: 12/23/17 08:26 Dose: 3 ml Admin: 12/22/17 20:55 Dose: 3 ml Admin: 12/22/17 15:09 Dose: 3 ml Admin: 12/22/17 11:00 Dose: 3 ml Admin: 12/22/17 07:23 Dose: 3 ml Admin: 12/21/17 22:14 Dose: 3 ml Admin: 12/21/17 15:12 Dose: 3 ml Admin: 12/21/17 10:52 Dose: 3 ml Admin: 12/21/17 07:21 Dose: 3 ml Admin: 12/20/17 21:42 Dose: 3 ml Admin: 12/20/17 14:55 Dose: 3 ml Admin: 12/20/17 10:53 Dose: 3 ml Admin: 12/20/17 07:20 Dose: Not Given Admin: 12/19/17 20:39 Dose: 3 ml Admin: 12/19/17 14:36 Dose: 3 ml Admin: 12/19/17 07:14 Dose: 3 ml Admin: 12/18/17 21:58 Dose: 3 ml Admin: 12/18/17 14:42 Dose: 3 ml Admin: 12/18/17 11:25 Dose: Not Given Admin: 12/18/17 07:00 Dose: 3 ml Admin: 12/17/17 21:31 Dose: 3 ml Admin: 12/17/17 14:42 Dose: Not Given Admin: 12/17/17 11:33 Dose: 3 ml Admin: 12/17/17 07:10 Dose: 3 ml Admin: 12/16/17 20:31 Dose: 3 ml Admin: 12/16/17 14:39 Dose: 3 ml Admin: 12/16/17 10:32 Dose: 3 ml Admin: 12/16/17 07:42 Dose: Admin: 12/15/17 21:20 Dose: 3 ml Admin: 12/15/17 14:45 Dose: 3 ml Admin: 12/15/17 11:06 Dose: 3 ml Admin: 12/15/17 07:36 Dose: 3 ml Admin: 12/14/17 21:33 Dose: 3 ml Admin: 12/14/17 16:03 Dose: 3 ml Albuterol/Ipratropium (Duoneb 3.0-0.5 Mg/3 Ml) 3 ml INH ASDIRECTED PRN PRN Reason: BREATHING Benzocaine/Menthol (Cepacol Sore Throat) 1 lozenge MUCMEM ASDIRECTED PRN PRN Reason: Sore Throat Last Admin: 12/22/17 21:29 Dose: 1 pack Cetirizine HCl (Zyrtec) 10 mg PO DAILY [facility] Last Admin: 12/23/17 09:51 Dose: Admin: 12/22/17 11:55 Dose: Not Given Admin: 12/21/17 09:19 Dose: 10 mg Admin: 12/20/17 09:17 Dose: 10 mg Admin: 12/19/17 10:38 Dose: 10 mg Admin: 12/18/17 12:28 Dose: Admin: 12/17/17 11:30 Dose: 10 mg Admin: 12/16/17 09:45 Dose: 10 mg Admin: 12/15/17 09:07 Dose: 10 mg Clonazepam (Klonopin) 1 mg PO BEDTIME ALEX Last Admin: 12/22/17 22:01 Dose: 1 mg Admin: 12/21/17 22:14 Dose: 1 mg Admin: 12/20/17 21:42 Dose: 1 mg Admin: 12/19/17 20:39 Dose: 1 mg Admin: 12/18/17 21:58 Dose: 1 mg Admin: 12/17/17 21:31 Dose: 1 mg Admin: 12/16/17 20:40 Dose: 1 mg Admin: 12/15/17 21:23 Dose: Not Given Admin: 12/14/17 21:33 Dose: 1 mg Enoxaparin Sodium (Lovenox) 40 mg SUBCUT DAILY [facility] Last Admin: 12/23/17 09:56 Dose: 40 mg Escitalopram Oxalate (Lexapro) 10 mg PO DAILY [facility] Last Admin: 12/23/17 09:50 Dose: Admin: 12/22/17 11:54 Dose: Not Given Admin: 12/21/17 09:19 Dose: 10 mg Admin: 12/20/17 09:18 Dose: 10 mg Admin: 12/19/17 10:38 Dose: 10 mg Admin: 12/18/17 15:08 Dose: 10 mg Admin: 12/18/17 12:27 Dose: Admin: 12/17/17 11:32 Dose: 10 mg Admin: 12/16/17 09:45 Dose: 10 mg Admin: 12/15/17 09:07 Dose: 10 mg Fentanyl Citrate (Fentanyl In Ns 20 Mcg/Ml 30 Ml [employer]) 0 mcg IV ASDIRECTED ALEX; Protocol Last Admin: 12/22/17 16:40 Dose: 20 mcg Heparin Sodium (Porcine) (Heparin Lock Flush 100 Units/Ml) 500 units FLUSH ASDIRECTED PRN PRN Reason: Central line flush Last Admin: 12/23/17 04:30 Dose: 500 units Admin: 12/22/17 22:21 Dose: 500 units Admin: 12/22/17 16:05 Dose: 500 units Admin: 12/22/17 08:26 Dose: 500 units Admin: 12/22/17 07:46 Dose: 500 units Admin: 12/20/17 09:12 Dose: 500 units Hydralazine HCl (Apresoline) 10 mg PO Q8HR [facility] Last Admin: 12/23/17 13:28 Dose: Admin: 12/23/17 05:10 Dose: 10 mg Admin: 12/22/17 21:53 Dose: 10 mg Admin: 12/22/17 14:52 Dose: Admin: 12/22/17 05:55 Dose: 10 mg Admin: 12/21/17 21:44 Dose: 10 mg Admin: 12/21/17 13:27 Dose: 10 mg Admin: 12/21/17 05:45 Dose: 10 mg Admin: 12/20/17 21:23 Dose: 10 mg Admin: 12/20/17 13:23 Dose: 10 mg Admin: 12/20/17 05:09 Dose: Admin: 12/19/17 21:40 Dose: 10 mg Admin: 12/19/17 14:01 Dose: 10 mg Admin: 12/19/17 05:04 Dose: 10 mg Admin: 12/18/17 21:59 Dose: 10 mg Admin: 12/18/17 14:55 Dose: 10 mg Admin: 12/18/17 06:00 Dose: 10 mg Admin: 12/17/17 21:32 Dose: 10 mg Admin: 12/17/17 14:53 Dose: 10 mg Admin: 12/17/17 07:47 Dose: Admin: 12/16/17 22:00 Dose: 10 mg Admin: 12/16/17 14:01 Dose: 10 mg Admin: 12/16/17 05:19 Dose: Admin: 12/15/17 21:23 Dose: Not Given Admin: 12/15/17 14:59 Dose: 10 mg Admin: 12/15/17 05:13 Dose: 10 mg Admin: 12/14/17 21:33 Dose: 10 mg Hydromorphone HCl (Dilaudid) 2 mg PO Q4H PRN PRN Reason: Pain Dextrose/Lactated Ringer's (Dextrose 5%-Lactated Ringers) 1,000 mls @ 100 mls/ hr IV ASDIRECTED [facility] Last Admin: 12/23/17 10:46 Dose: 100 mls/hr Infusion: 12/23/17 10:46 Dose: 100 mls/hr Admin: 12/23/17 01:13 Dose: 100 mls/hr Infusion: 12/22/17 12:39 Dose: 100 mls/hr Admin: 12/22/17 02:39 Dose: 100 mls/hr Infusion: 12/21/17 23:26 Dose: 100 mls/hr Admin: 12/21/17 13:26 Dose: 100 mls/hr Infusion: 12/21/17 13:26 Dose: 100 mls/hr Admin: 12/21/17 03:48 Dose: 100 mls/hr Multivitamins/Minerals 10 ml/Thiamine HCl 100 mg/ Chromium/Copper/Manganese/ Seleni/Zn 1 ml/ Dextrose/Lactated Ringer's 1,012 mls @ 100 mls/hr IV DAILY@ 1600 [facility] Last Admin: 12/23/17 16:49 Dose: 100 mls/hr Admin: 12/22/17 16:01 Dose: 100 mls/hr Admin: 12/21/17 16:25 Dose: 100 mls/hr Admin: 12/20/17 17:52 Dose: 100 mls/hr Magnesium Sulfate 2 gm/ Premix 50 mls @ 25 mls/hr IV Q6H [facility] Stop: 12/24/17 05:59 Last Admin: 12/23/17 16:48 Dose: 25 mls/hr Infusion: 12/23/17 11:58 Dose: 25 mls/hr Admin: 12/23/17 09:58 Dose: 25 mls/hr Infusion: 12/23/17 05:38 Dose: 25 mls/hr Admin: 12/23/17 03:38 Dose: 25 mls/hr Infusion: 12/22/17 23:29 Dose: 25 mls/hr Admin: 12/22/17 21:29 Dose: 25 mls/hr Infusion: 12/22/17 18:02 Dose: 25 mls/hr Admin: 12/22/17 16:02 Dose: 25 mls/hr Admin: 12/22/17 12:47 Dose: Infusion: 12/22/17 05:32 Dose: 25 mls/hr Admin: 12/22/17 03:32 Dose: 25 mls/hr Infusion: 12/22/17 00:37 Dose: 25 mls/hr Admin: 12/21/17 22:37 Dose: 25 mls/hr Infusion: 12/21/17 18:25 Dose: 25 mls/hr Admin: 12/21/17 16:25 Dose: 25 mls/hr Infusion: 12/21/17 11:12 Dose: 25 mls/hr Admin: 12/21/17 09:12 Dose: 25 mls/hr Sodium Chloride (Normal Saline) 250 mls @ 25 mls/hr IV ASDIRECTED [facility] Piperacillin/Tazobactam/ (Dextrose 3.375 gm/ Premix) 50 mls @ 100 mls/hr IV Q6H [facility] Last Admin: 12/23/17 16:48 Dose: 100 mls/hr Admin: 12/23/17 09:58 Dose: 100 mls/hr Lactobacillus Rhamnosus (Culturelle) 1 cap PO DAILY [facility] Last Admin: 12/23/17 09:50 Dose: Admin: 12/22/17 11:54 Dose: Not Given Admin: 12/21/17 09:19 Dose: 1 cap Admin: 12/20/17 09:18 Dose: 1 cap Admin: 12/19/17 10:39 Dose: 1 cap Admin: 12/18/17 15:05 Dose: 1 cap Admin: 12/18/17 12:27 Dose: Admin: 12/17/17 11:29 Dose: 1 cap Admin: 12/16/17 09:45 Dose: 1 cap Admin: 12/15/17 09:06 Dose: 1 cap Levalbuterol HCl (Xopenex) 1.25 mg INH Q6H PRN PRN Reason: * Loperamide HCl (Imodium) 2 mg PO ASDIRECTED PRN PRN Reason: LOOSE STOOL Metoclopramide HCl (Reglan) 10 mg IVPUSH Q6H [facility] Last Admin: 12/23/17 13:33 Dose: 10 mg Admin: 12/23/17 07:57 Dose: 10 mg Admin: 12/23/17 01:07 Dose: 10 mg Admin: 12/22/17 20:04 Dose: 10 mg Admin: 12/22/17 15:00 Dose: 10 mg Admin: 12/22/17 08:57 Dose: 10 mg Admin: 12/22/17 01:17 Dose: 10 mg Admin: 12/21/17 20:14 Dose: 10 mg Admin: 12/21/17 13:27 Dose: 10 mg Admin: 12/21/17 07:56 Dose: 10 mg Admin: 12/21/17 01:21 Dose: 10 mg Admin: 12/20/17 21:23 Dose: 10 mg Admin: 12/20/17 13:23 Dose: 10 mg Admin: 12/20/17 09:18 Dose: 10 mg Admin: 12/20/17 02:20 Dose: 10 mg Admin: 12/19/17 20:39 Dose: 10 mg Admin: 12/19/17 14:00 Dose: 10 mg Admin: 12/19/17 07:46 Dose: 10 mg Admin: 12/19/17 02:13 Dose: 10 mg Admin: 12/18/17 19:24 Dose: 10 mg Admin: 12/18/17 14:55 Dose: 10 mg Admin: 12/18/17 13:03 Dose: Admin: 12/18/17 02:00 Dose: 10 mg Admin: 12/17/17 20:10 Dose: 10 mg Admin: 12/17/17 14:52 Dose: 10 mg Admin: 12/17/17 07:57 Dose: 10 mg Admin: 12/17/17 02:12 Dose: 10 mg Admin: 12/16/17 20:31 Dose: 10 mg Admin: 12/16/17 14:02 Dose: 10 mg Admin: 12/16/17 09:33 Dose: 10 mg Metoprolol Tartrate (Lopressor) 5 mg IV Q4H [facility] Last Admin: 12/23/17 16:49 Dose: 5 mg Admin: 12/23/17 13:19 Dose: 5 mg Mometasone Furoate/Formoterol Fumar (Dulera 200-5 Mcg) 2 puff IH BIDRT [facility] Last Admin: 12/23/17 08:26 Dose: 2 puff Admin: 12/22/17 20:58 Dose: 2 puff Admin: 12/22/17 07:26 Dose: Admin: 12/21/17 21:43 Dose: 2 puff Admin: 12/21/17 07:21 Dose: 2 puff Admin: 12/20/17 21:21 Dose: 2 puff Admin: 12/20/17 10:55 Dose: 2 puff Admin: 12/19/17 20:38 Dose: 2 puff Admin: 12/19/17 07:14 Dose: 2 puff Admin: 12/18/17 21:58 Dose: 2 puff Admin: 12/18/17 07:00 Dose: 2 puff Admin: 12/17/17 20:12 Dose: 2 puff Admin: 12/17/17 07:13 Dose: 2 puff Admin: 12/16/17 20:31 Dose: 2 puff Admin: 12/16/17 09:40 Dose: 2 puff Admin: 12/16/17 07:42 Dose: Admin: 12/15/17 21:22 Dose: 2 inhalation Admin: 12/15/17 07:36 Dose: 2 inhalation Admin: 12/14/17 21:34 Dose: 2 inhalation Montelukast Sodium (Singulair) 10 mg PO BEDTIME [facility] Last Admin: 12/22/17 21:54 Dose: 10 mg Admin: 12/21/17 21:44 Dose: 10 mg Admin: 12/20/17 21:26 Dose: 10 mg Admin: 12/19/17 20:40 Dose: 10 mg Admin: 12/18/17 21:58 Dose: 10 mg Admin: 12/17/17 21:34 Dose: 10 mg Admin: 12/16/17 20:34 Dose: 10 mg Admin: 12/15/17 21:23 Dose: Not Given Admin: 12/14/17 21:33 Dose: 10 mg Naloxone HCl (Narcan) 0.4 mg IV ASDIRECTED PRN PRN Reason: RESPIRATORY RATE LESS THAN 12 Last Admin: 12/22/17 08:20 Dose: 0.1 mg Admin: 12/22/17 08:09 Dose: 0.1 mg Ondansetron HCl (Zofran) 4 mg IVPUSH Q4H PRN PRN Reason: Nausea/Vomiting Last Admin: 12/23/17 02:19 Dose: 4 mg Admin: 12/22/17 21:49 Dose: 4 mg Admin: 12/22/17 01:17 Dose: 4 mg Admin: 12/21/17 20:14 Dose: 4 mg Admin: 12/21/17 15:47 Dose: 4 mg Admin: 12/19/17 11:33 Dose: 4 mg Admin: 12/19/17 04:36 Dose: 4 mg Admin: 12/18/17 17:55 Dose: 4 mg Admin: 12/18/17 14:51 Dose: 4 mg Admin: 12/17/17 00:17 Dose: 4 mg Admin: 12/16/17 19:15 Dose: 4 mg Admin: 12/16/17 11:50 Dose: 4 mg Admin: 12/15/17 19:46 Dose: 4 mg Admin: 12/15/17 15:48 Dose: 4 mg Admin: 12/15/17 11:45 Dose: 4 mg Admin: 12/15/17 04:25 Dose: 4 mg Sucralfate (Carafate) 0.5 gm PO QID [facility] Last Admin: 12/23/17 16:45 Dose: Admin: 12/23/17 09:51 Dose: Admin: 12/23/17 05:11 Dose: 0.5 gm Admin: 12/22/17 21:53 Dose: 0.5 gm Admin: 12/22/17 16:21 Dose: Admin: 12/22/17 11:55 Dose: Not Given Admin: 12/22/17 05:57 Dose: 0.5 gm Admin: 12/21/17 21:44 Dose: 0.5 gm Admin: 12/21/17 17:01 Dose: Not Given Admin: 12/21/17 10:11 Dose: 0.5 gm Admin: 12/21/17 05:45 Dose: 0.5 gm Admin: 12/20/17 21:24 Dose: 0.5 gm Admin: 12/20/17 15:51 Dose: 0.5 gm Admin: 12/20/17 10:05 Dose: 0.5 gm Admin: 12/20/17 05:10 Dose: Admin: 12/19/17 21:40 Dose: 0.5 gm Admin: 12/19/17 15:49 Dose: 0.5 gm Admin: 12/19/17 10:37 Dose: 0.5 gm Admin: 12/19/17 05:04 Dose: 0.5 gm Admin: 12/18/17 21:58 Dose: 0.5 gm Admin: 12/18/17 15:05 Dose: 0.5 gm Admin: 12/18/17 12:33 Dose: Admin: 12/18/17 12:26 Dose: Admin: 12/17/17 21:34 Dose: 0.5 gm Admin: 12/17/17 16:56 Dose: 0.5 gm Admin: 12/17/17 11:33 Dose: 0.5 gm Admin: 12/17/17 07:47 Dose: Admin: 12/16/17 22:04 Dose: 0.5 gm Admin: 12/16/17 15:54 Dose: 0.5 gm Admin: 12/16/17 09:57 Dose: 0.5 gm Admin: 12/16/17 05:19 Dose: Admin: 12/15/17 21:23 Dose: Not Given Admin: 12/15/17 15:49 Dose: 0.5 gm Admin: 12/15/17 10:11 Dose: 0.5 gm Admin: 12/15/17 05:13 Dose: 0.5 gm Admin: 12/14/17 21:33 Dose: 0.5 gm Admin: 12/14/17 16:05 Dose: 0.5 gm - Plan Plan (Free Text/Narrative):: Check ALYSSA on sample of mouth and tongue Continue to work on lungs. Will evaluate prn or AM Shavon Vo
[2017-12-23] MEDS: ClonazePAM 1 MG Tab PO SCH (20:55)
[2017-12-23] MEDS: Montelukast 10 MG Tab PO SCH (20:56)
[2017-12-23] MEDS: Nystatin Susp 100,000 Unit/ML 5 ML UD Cup PO SCH (22:03)
[2017-12-24] MEDS: Metoclopramide 10 MG/2 ML SDV IVPUSH SCH ×4 (01:15→20:10)
[2017-12-24] MEDS: Metoprolol Tartrate 5 MG/5 ML SDV IV SCH ×6 (01:15→22:17)
[2017-12-24] MEDS: Dextrose 5%-Lactated Ringers 1,000 ML IV SCH ×2 (03:45→13:45)
[2017-12-24] MEDS: Magnesium Sulfate/Water 2 GM in Premix Bag 1 BAG IV SCH (04:24)
[2017-12-24] MEDS: Piperacillin/Tazobactam/Dext 3.375 GM in Premix Bag 1 BAG IV SCH ×4 (04:24→22:17)
[2017-12-24] MEDS: Sucralfate Suspension 1 GM/10 ML Cup PO SCH (05:42)
[2017-12-24] MEDS: hydrALAZINE 10 MG Tab PO SCH ×3 (05:42→22:18)
[2017-12-24] MEDS: Nystatin Susp 100,000 Unit/ML 5 ML UD Cup PO SCH ×4 (05:46→22:17)
[2017-12-24] MEDS: Formoterol/Mometasone 200-5 MCG 8.8 GM Inhaler IH SCH ×2 (07:14→22:17)
[2017-12-24] MEDS: Albuterol/Ipratropium 3.0-0.5 MG/3 ML Neb Soln INH SCH ×4 (07:14→22:17)
[2017-12-24] MEDS: fentaNYL/Normal Saline 600 MCG/30 ML PCA Vial IV SCH (07:38)
--- NOTE | 2017-12-24 08:22 | OR ---
DATE OF PROCEDURE: 12/22/2017 PROCEDURES: 1. Reopening of recent laparotomy (24576). 2. Repair of internal hernia/volvulus, ileum (59600). 3. Drainage of peritonitis (77385). 4. Repair of enterotomy, small bowel (95666). FINDINGS: 1. 3500 mL of serosanguineous fluid in the abdomen. 2. Adhesions causing essentially a volvulus on the distal ileum in the pelvis. 3. Vivek-en-Y anastomosis without abnormality in a retrocolic type fashion. 4. Functional bowel obstruction of jejunum due to retaining suture of jejunum. 5. Tear in the jejunum due to tension on the retaining suture/jejunum. COMPLICATIONS: None. LEAD FRONT END DEVELOPER: None. ANESTHESIA: General. INDICATIONS: A 42-year-old female with distended abdomen, abdominal pain, elevated liver function tests, and worsening abdominal pain requiring exploratory laparotomy. PROCEDURE IN DETAIL: The patient was placed in supine position. The midline abdominal incision was opened. This would be opened up further during the procedure to facilitate optimal visualization of the bowel. During the reopening of the recent laparotomy, the sutures were transected and the wound was opened. A large amount of serosanguineous type fluid would be noted. This was quite significant volume and was totaled to be greater than 3500 mL. This was causing generalized peritonitis. This was also cultured. Orientation of the abdominal structures was then commenced as the patient does have a Vivek- en-Y behind the colon. This anatomical architecture was putting some strain on the bowel, but was not significant. It was noted that the jejunal feeding tube was noted to be sutured in a standard Witzel type orientation. In addition to this, there was Prolene sutures using to decrease the tension on the jejunal site. This was noted to be one of the main areas of concern. This stitch had essentially started to tear through the bowel wall. A small amount of stool was noted. However, this appeared to be a recent development. This suture was then cut out. The edges were freshened and the enterotomy was repaired with 2 layers of 3-0 Vicryl in a Heineke-Mikulicz type fashion with Tisseal Of note, a 10 flat Hammad-Ndiaye drain would be placed approximately 5 cm below the jejunal anastomosis below the jejunal feeding tube. The small bowel was then ran in a retrograde type fashion. Adhesions in the pelvis essentially caused functional bowel obstruction. These adhesions were lysed. This was inflammation in approximation to the Interceed mesh. Once this was freed, this was checked for any evidence of full-thickness tear, although there was some inflammation and strain on the bowel itself, there was no definitive hole or leak. This bowel would then be ran in its entirety. The jejunal anastomosis would be identified and all 3 of the respective limbs would be able to identify the ran in their entirety. This would then be ran in antegrade fashion and then repeated in a retrograde fashion twice. Of note, the ileocolic junction was identified, was adhered in the pelvis, but was not mobilized due to concern for enterotomy. The liver itself was also palpated due to the patient's elevated liver function tests. However, on physical examination, the liver itself was normal. No inflammation , no nodulation, no studding, no concerns for hepatitis or liver failure. No other abnormalities noted. The abdomen was thoroughly irrigated. The wound was then closed with fascia and dressed in for preparation for delayed primary closure. Noah Rene MD /[id number] MTDD
[2017-12-24] MEDS ORDERED: Pantoprazole 40 MG Vial IVPUSH SCH (08:30)
[2017-12-24] MEDS: Pantoprazole 40 MG Vial IVPUSH SCH ×3 (09:48→23:08)
[2017-12-24] MEDS: Enoxaparin 40 MG/0.4 ML Syringe SUBCUT SCH (09:49)
--- NOTE | 2017-12-24 10:15 | CR ---
Abdomen 2V AP Flat Upright HISTORY: abdominal pain FINDINGS: Surgical drain is stable in position. Bowel gas pattern is nonspecific. Residual contrast i n the colon appears similar to yesterday's exam. There are multiple staple lines left abdomen. Bony s tructures are unremarkable. Tip of the NG tube overlies the stomach. There are surgical clips right u pper quadrant consistent with prior cholecystectomy. IMPRESSION: Stable postoperative changes.
--- NOTE | 2017-12-24 11:28 | PN ---
DATE OF SERVICE: 12/24/2017 SUBJECTIVE: Shamika is postop day #2 following surgery by Noah Rene MD. Vital signs have been stable. She has been afebrile. Oral intake, n.p.o. except ice chips. She has had no emesis. IV intake is per EMR. Output via Rodgers catheter 1275 NG put out 500 mL at 0659 hours. Prior to that, it was 1050. Pain has been controlled by using the HOME RESTORATION SERVICE CLEANER. Has denied any nausea. REVIEW OF SYSTEMS: Remainder of review of systems negative for any pertinent positives or negatives. LABORATORY DATA: Labs this morning hemoglobin 8.7, down from 11.4. OBJECTIVE: GENERAL: Shamika Durán is a 42-year-old female. She is alert and oriented. Color pale. VITAL SIGNS: TPR 98.7, 113, 20. Blood pressure 119/61. HEENT: Negative. NECK: Supple. HEART: Regular rate and rhythm. LUNGS: Clear. ABDOMEN: J-tube in place. It is not being used at this time and SHERRI drain put out 35 mL. Dressing otherwise is dry and intact. Abdominal binder is on. EXTREMITIES: SCDs are on and there is no peripheral edema. ASSESSMENT: 1. Reopening of recent laparotomy. 2. Repair of internal hernia volvulus in the ileum. 3. Drainage of peritonitis. 4. Repair of enterostomy and small bowel. Findings: a. 3500 mL of serosanguineous fluid in the abdomen. b. Adhesion causing essentially a volvulus on the distal ileum in the pelvis. c. Vivek-en-Y anastomosis without abnormality in the retrocolic type fashion. d. Functional bowel obstruction at the jejunum due to retaining suture of the jejunum. e. Tear in the jejunum due to tension on the retaining suture of the jejunum. 5. Narcotic-induced unresponsiveness resolved after Narcan x2. 6. Elevated liver function tests acute moderate to high-grade distal small-bowel obstruction. 7. Laparotomy with lysis of adhesions and formation of percutaneous jejunostomy tube, small bowel resection to facilitate movement of the Vivek limb into position and position of Interceed mesh for malnutrition, possible small bowel obstruction at present Vivek limb passed behind the colon. Date of surgery, 12/14/2017. 8. Limited peripheral access insertion of the Rivers catheter, left subclavian exploratory laparotomy with lysis of adhesion, resection and reconstruction of the small bowel anastomosis and exploratory tube decompression of small bowel and enterotomy tube decompression of the proximal small bowel and placement of Interceed mesh, date 12/19/2017. 9. Delayed primary closure of open abdominal incision, 12/20/2017. PLAN: 1. Physical therapy for strength and conditioning, ambulation. 2. Discontinue oral medications; Zyrtec, Lexapro, Dilaudid, Imodium, Singulair, and Carafate. 3. Protonix 40 mg IV q.12 hours. 4. Schedule and have consent signed for exploratory lap; general anesthesia; Jese Grissom MD; with TAP block. We will evaluate p.r.n. or in a.m. Shavon Siddiqi PA-C /[id number]
[2017-12-24] MEDS: Sodium Chloride 0.9% 250 ML IV SCH (14:24)
[2017-12-24] MEDS: MVI, Adult with Vitamin K 10 ML, Thiamine 100 MG, Chromium/Copper/Mang/Selen/Zn 1 ML in... IV SCH ×4 (15:31)
[2017-12-24] MEDS ORDERED: Acetaminophen 1,000 MG in Premix Bag 1 BAG IV PRN (17:13)
[2017-12-24] MEDS: Ondansetron 4 MG/2 ML SDV IVPUSH PRN (19:56)
--- NOTE | 2017-12-24 20:01 | PN ---
DATE OF SERVICE: 12/24/2017 SUBJECTIVE: The patient is slightly better today, not passing any gas. No nausea, vomiting, shortness of breath, or chest pain. OBJECTIVE: VITAL SIGNS: Stable. CARDIOVASCULAR: Regular rhythm and rate. RESPIRATORY: Lungs, poor inspiratory effort bilaterally. ABDOMEN: Mild distention. ASSESSMENT: Status post exploratory laparotomy. PLAN: We will continue NG tube at this time. Continue Lovenox. Her hemoglobin has dipped slightly, we will transfuse her with 1 unit of packed red blood cells. Dr. Grissom will return in the morning, and we will transfer the patient back to him for further evaluation. However, the patient appears to be stable, her labs improved postoperatively. Noah Rene MD /[id number]
[2017-12-25] MEDS: Metoprolol Tartrate 5 MG/5 ML SDV IV SCH ×6 (01:15→20:22)
[2017-12-25] MEDS: Dextrose 5%-Lactated Ringers 1,000 ML IV SCH ×2 (01:19→11:59)
[2017-12-25] MEDS: Sodium Chloride 0.9% 250 ML IV SCH (01:21)
[2017-12-25] MEDS: Metoclopramide 10 MG/2 ML SDV IVPUSH SCH ×4 (01:44→20:22)
[2017-12-25] MEDS: Piperacillin/Tazobactam/Dext 3.375 GM in Premix Bag 1 BAG IV SCH (03:36)
[2017-12-25] MEDS: hydrALAZINE 10 MG Tab PO SCH ×3 (05:31→21:36)
[2017-12-25] MEDS: Nystatin Susp 100,000 Unit/ML 5 ML UD Cup PO SCH ×4 (05:32→21:36)
[2017-12-25] MEDS: Albuterol/Ipratropium 3.0-0.5 MG/3 ML Neb Soln INH SCH ×4 (07:10→20:41)
[2017-12-25] MEDS: Formoterol/Mometasone 200-5 MCG 8.8 GM Inhaler IH SCH ×2 (07:10→20:41)
[2017-12-25] MEDS: Linezolid 600 MG in Premix Bag 1 BAG IV SCH ×2 (08:34→20:31)
[2017-12-25] MEDS: Pantoprazole 40 MG Vial IVPUSH SCH ×2 (08:44→20:23)
--- NOTE | 2017-12-25 08:59 | CR ---
Chest 1V Frontal HISTORY: temp 102.2 COMPARISON: 06/28/2017 FINDINGS: There is poor inspiration causing crowding of the pulmonary markings at the lung bases. Thi s likely represents atelectasis. Early inflammatory infiltrates cannot entirely excluded. There are s mall bilateral pleural effusions. Upper chest is clear. Cardiomediastinal silhouette is within normal limits. Pulmonary vasculature is not engorged. Tip of the NG tube is in the stomach. Left subclavian central line position is satisfactory with the tip overlying the mid SVC. IMPRESSION: Port inspiration. Small bilateral pleural effusions with probable atelectasis lung bases bilaterally. Superimposed inflammatory infiltrates cannot be completely excluded. No other acute ches t abnormality is identified.
[2017-12-25] MEDS: Enoxaparin 40 MG/0.4 ML Syringe SUBCUT SCH (09:17)
[2017-12-25] MEDS: Bisacodyl 10 MG Supp RECTAL SCH ×2 (09:17→20:41)
[2017-12-25] MEDS ORDERED: Meropenem 500 MG SDV ONE (09:41)
[2017-12-25] MEDS ORDERED: Bupivacaine 0.5% 50 ML MDV ONE (09:41)
[2017-12-25] MEDS ORDERED: Lidocaine 1% with EPINEPHrine 1:100,000 50 ML MDV ONE (09:41)
[2017-12-25] MEDS ORDERED: fentaNYL 100 MCG/2 ML SDV ONE ×2 (09:59→11:21)
[2017-12-25] MEDS ORDERED: Midazolam 1 MG/ML 2 ML SDV ONE (09:59)
[2017-12-25] MEDS ORDERED: Propofol 200 MG/20 ML SDV ONE ×2 (10:00→11:00)
[2017-12-25] MEDS: Meropenem 500 MG in Sodium Chloride 0.9% 50 ML IV SCH ×3 (10:15→21:36)
[2017-12-25] MEDS ORDERED: Ropivacaine 50 ML, Dexamethasone 8 MG, EPINEPHrine 0.4 MG, Sodium Chloride 0.9% 27.6 ML NERVRT SCH ×4 (11:00)
[2017-12-25] MEDS ORDERED: Lactated Ringers 1,000 ML ONE (11:02)
[2017-12-25] MEDS: AA 5%/Calcium/D15W/Lytes 2,000 ML with MVI, Adult with Vitamin K 10 ML, Chromium/Copper... IV SCH ×3 (13:02)
[2017-12-25] MEDS: fentaNYL/Normal Saline 600 MCG/30 ML PCA Vial IV SCH (18:16)
[2017-12-25] MEDS: Ondansetron 4 MG/2 ML SDV IVPUSH PRN (19:10)
[2017-12-26] MEDS: Metoclopramide 10 MG/2 ML SDV IVPUSH SCH ×4 (01:55→20:58)
[2017-12-26] MEDS: Metoprolol Tartrate 5 MG/5 ML SDV IV SCH ×6 (01:55→22:00)
[2017-12-26] MEDS: Meropenem 500 MG in Sodium Chloride 0.9% 50 ML IV SCH ×4 (04:17→21:22)
[2017-12-26] MEDS: hydrALAZINE 10 MG Tab PO SCH ×3 (05:40→21:30)
[2017-12-26] MEDS: Nystatin Susp 100,000 Unit/ML 5 ML UD Cup PO SCH ×5 (05:40→22:08)
[2017-12-26] MEDS: Formoterol/Mometasone 200-5 MCG 8.8 GM Inhaler IH SCH ×2 (07:10→21:55)
[2017-12-26] MEDS: Albuterol/Ipratropium 3.0-0.5 MG/3 ML Neb Soln INH SCH ×4 (07:10→21:51)
[2017-12-26] MEDS: Enoxaparin 40 MG/0.4 ML Syringe SUBCUT SCH (08:24)
[2017-12-26] MEDS: Pantoprazole 40 MG Vial IVPUSH SCH ×2 (08:25→21:09)
[2017-12-26] MEDS: Linezolid 600 MG in Premix Bag 1 BAG IV SCH ×2 (08:25→21:55)
[2017-12-26] MEDS: Bisacodyl 10 MG Supp RECTAL SCH ×2 (08:29→21:25)
[2017-12-26] MEDS: Magnesium Sulfate/Water 2 GM in Premix Bag 1 BAG IV SCH ×3 (10:30→22:22)
[2017-12-26] MEDS: AA 5%/Calcium/D15W/Lytes 2,000 ML with MVI, Adult with Vitamin K 10 ML, Chromium/Copper... IV SCH ×3 (12:27)
[2017-12-26] MEDS: Ondansetron 4 MG/2 ML SDV IVPUSH PRN ×3 (13:24→23:29)
--- NOTE | 2017-12-26 16:46 | OR ---
DATE OF PROCEDURE: 12/19/2017 PREOPERATIVE DIAGNOSES: 1. Obstruction at recent jejunojejunostomy. 2. Indications for central venous access. POSTOPERATIVE DIAGNOSES: 1. Indications for central venous access. 2. Obstruction at jejunojejunostomy, secondary to acute adhesions. 3. Marked distention of small bowel proximal to point of obstruction. PROCEDURES: 1. Insertion of double-lumen Rivers catheter via left subclavian vein approach (44923). 2. Exploratory laparotomy with lysis of adhesions with. a. Resection and reconstruction of small bowel anastomosis (09669). b. Enterotomy for tube decompression of proximal small bowel (43300). c. Placement of Interceed mesh to limit recurrent pelvic and abdominal wall adhesion formation (41575). ANESTHESIA: General. BOOTMAKER: Shavon Siddiqi PA-C. INDICATIONS FOR PROCEDURE: This is a 42-year-old status post recent small bowel resection, for some reason that area has become obstructed. Plan is for re-exploration with correction most likely by means of additional resection and reconstruction. The patient also meets indication for central venous access in terms of limited peripheral venous access as well as indications for TPN in the short term. Potential risks of the procedure including bleeding, infection, pneumohemothorax during the Rivers catheter insertion, problems with leaks from various GI tract suture or staple lines as well as possibility of cardiopulmonary, septic, or hemorrhagic complications leading to were discussed, and the patient wishes to proceed. DETAILS OF PROCEDURE: The patient was taken to the operating room. After general endotracheal anesthesia was induced, initially the upper chest and neck areas were prepped and draped. The left subclavian vein was cannulated. A guidewire was passed and manipulated into the superior vena cava. An additional small incision was made 4 fingerbreadths below the original puncture site and a double-lumen Rivers catheter was then tunneled between the 2 areas, and then cut such that the tip would eventually lie in the upper right atrium. The catheter previously had been flushed with heparinized saline over the introducer and peel-away catheter. The Rivers catheter was then placed with fluoroscopic surveillance showing the tip to be in appropriate location in the right atrium. Initial puncture incision was then closed with a 4-0 Vicryl subcuticular stitch and the external skin site approximated with some 3-0 nylon stitch and the port was once again aspirated and flushed with good in and out flow being confirmed. Dressing was then applied. At this point, using ultrasound guidance bilateral transversus abdominis blocks were placed in subcostal location using standard solution and the abdomen was then prepped and draped. Previous midline incision was then reopened and then extended somewhat superiorly. As one entered the abdomen, the point of obstruction appeared to be an acute adhesion of the recent anastomosis up to the area adjacent to the recent jejunostomy tube placement. This was taken down and it was felt it would be better to have more resection anastomosis, and that area was then anastomosed to itself and was then resected. The proximal small bowel was still quite distended despite the nasogastric tube being placed and a small enterotomy was then placed on the proximal staple line. An 18-Belarusian Nora sump tube placed and the fluid then evacuated from that. The new anastomosis was placed back once again retrocolic after enlarging the mesenteric defect within the colon. This was accomplished with internal firing of the Endo DRISS arellano load between the 2 ends of the bowel and the common opening closed with purple load and the anastomosis reinforced with some 3-0 Vicryl stitch. No fibrin sealant was used in this case as that appeared perhaps to be part of the reactive nature of the recent anastomosis in terms of the acute adhesion formation. The area was then irrigated with antibiotic- containing saline solution. Interceed mesh was placed across the lower abdomen up underneath the incision to displace the small bowel from the pelvic and abdominal wall to limit recurrent adhesions. The midline fascia was then approximated with #2 Vicryl stitch and the skin and subcutaneous tissue were felt to be high risk for wound infection and left open for planned delayed primary closure in 48 hours. The patient was taken to the recovery room in satisfactory condition. There were no evident complications. Physician assistant store manager sales, Shavon Siddiqi PA-C, played an essential role in assisting in this case, helping to position the patient, retract structures as needed, as well as suturing and cutting sutures when indicated. Her presence improved the patient's safety and decreased operative time. Jese Grissom MD /[id number]
--- NOTE | 2017-12-26 17:13 | OR ---
DATE OF PROCEDURE: 12/25/2017 PREOPERATIVE DIAGNOSIS: Open abdominal incision. POSTOPERATIVE DIAGNOSIS: Open abdominal incision. OPERATIVE PROCEDURE: Delayed primary closure of open abdominal incision. ANESTHESIA: IV sedation plus local. INDICATION FOR PROCEDURE: The patient is status post open laparotomy with some contamination of the subcutaneous tissue this past Sunday. She is undergoing delayed primary closure of the incision at this time as it was felt to be high risk for wound infection if a primary closure was performed at that procedure. Potential risks of the procedure including bleeding and infection were reviewed, and the patient wishes to proceed. DETAILS OF PROCEDURE: The patient was taken to the operating room and placed in a supine position. After IV sedation was administered, bilateral transverse abdominis plane blocks were placed centered across the upper and mid abdomen in terms of the presumed distribution. Standard solution was injected with continuous monitoring by ultrasound. Following this, the central line was prepped and draped and the wound irrigated with some meropenem- containing saline solution and the edges anesthetized with 1% lidocaine mixed with Marcaine. A 10-Korean round Hammad-Ndiaye drain was placed through a stab wound beneath the main incision, and the incision was then closed with layers of 3-0 and 4-0 Vicryl stitch deep and then ashley for the skin. A drain was affixed with a 4-0 Vicryl stitch as well. The patient was taken to the recovery room in satisfactory condition. Jese Grissom MD /[id number]
--- NOTE | 2017-12-26 17:16 | PN ---
DATE OF SERVICE: 12/26/2017 The patient's T-max was 100.1 over the last 24 hours. Overnight, she has been completely afebrile, and the tachycardia seems to have dissipated with her heart rates presently in the 60s and 70s. Overall, she is feeling fairly good. NG output has been relatively scant considering the amount of ice chips she was taking in, and we will discontinue that. She did have some small bowel activity with the suppositories. The peritoneal fluid is growing out some gram-positive rods which should be sensitive to meropenem and Zyvox, which the patient is presently on. The labs show a white count of 7100, hemoglobin is 7.7. We are still awaiting blood availability. When that becomes available, we will give her 1 unit of packed RBCs. Other labs show a marginally low magnesium, that will be replaced today. Otherwise, we will continue the present TPN and maximize activity and work with pulmonary toilet. We will hold off using the GI tract in terms of the feeding tube for another day or two regarding the open area adjacent to the feeding tube heal up a little bit more securely before it might be perhaps become distended. Otherwise, we will continue to supplement the patient with some albumin as well. Jese Grissom MD /[id number]
--- NOTE | 2017-12-26 17:58 | OR ---
DATE OF PROCEDURE: 12/20/2017 PREOPERATIVE DIAGNOSIS: Open abdominal incision. POSTOPERATIVE DIAGNOSIS: Open abdominal incision. OPERATIVE PROCEDURE: Delayed primary closure of open abdominal incision. ANESTHESIA: IV sedation. INDICATION FOR PROCEDURE: The patient is 48 hours status post a complex open abdominal procedure involving some open bowel. Skin and subcutaneous tissue were felt to be at high risk for a wound infection if a primary closure was undertaken. Given this, the patient is brought at this time for a delayed primary closure. Potential risks of the procedure including bleeding and infection were reviewed, and the patient wishes to proceed. DETAILS OF PROCEDURE: The patient was taken to the operating room and placed in a supine position. After IV sedation was administered, the dressing was taken down, and the abdomen was examined. The wound was found to be clean and 10-Lao round Hammad-Ndiaye drain was then placed through a stab wound beneath the incision after the area had been anesthetized with 1% lidocaine mixed with Marcaine, and the area irrigated with a meropenem-containing saline solution. The incision was then closed with 2 layers of 3-0 and 4-0 Vicryl stitch deep and then ashley for the skin. Dressing was applied. The patient was taken back to the recovery room in a satisfactory condition. Drain had been fixed with 4-0 Vicryl skin stitch as well. Jese Grissom MD /[id number]
[2017-12-27] MEDS: Metoprolol Tartrate 5 MG/5 ML SDV IV SCH ×6 (00:33→20:39)
[2017-12-27] MEDS: Metoclopramide 10 MG/2 ML SDV IVPUSH SCH ×4 (01:35→20:09)
[2017-12-27] MEDS: Magnesium Sulfate/Water 2 GM in Premix Bag 1 BAG IV SCH ×4 (03:06→22:04)
[2017-12-27] MEDS: Meropenem 500 MG in Sodium Chloride 0.9% 50 ML IV SCH ×4 (03:14→22:04)
[2017-12-27] MEDS: Ondansetron 4 MG/2 ML SDV IVPUSH PRN ×2 (04:51→09:28)
[2017-12-27] MEDS: hydrALAZINE 10 MG Tab PO SCH ×3 (05:07→22:03)
[2017-12-27] MEDS: Nystatin Susp 100,000 Unit/ML 5 ML UD Cup PO SCH ×4 (05:10→22:05)
[2017-12-27] MEDS: Dextrose 5%-Lactated Ringers 1,000 ML IV SCH (05:13)
[2017-12-27] MEDS ORDERED: HYDROmorphone/Normal Saline 15 MG/30 ML PCA IV PRN (06:38)
[2017-12-27] MEDS ORDERED: Naloxone 0.4 MG/ML SDV IV PRN (06:38)
[2017-12-27] MEDS: LORazepam 2 MG/ML SDV IV PRN (06:52)
[2017-12-27] MEDS: Formoterol/Mometasone 200-5 MCG 8.8 GM Inhaler IH SCH ×2 (07:31→20:58)
[2017-12-27] MEDS: Albuterol/Ipratropium 3.0-0.5 MG/3 ML Neb Soln INH SCH ×4 (07:32→21:02)
--- NOTE | 2017-12-27 08:42 | PN ---
DATE OF SERVICE: 12/25/2017 The patient had a single elevated temp up to 102 last night, and this has come down to the 99 range presently. Cultures were obtained. Clinically, she does not look ill per se, in terms of complaining of any increased abdominal pain, and is alert and appears to be in fairly good spirits. NG tube output is still moderate. We will leave that in place. I think empirically, after the cultures have been obtained, we will switch her to Zyvox and meropenem from the Zosyn, and we will continue the TPN. We will give her Dulcolax suppository. She will undergo a delayed primary closure of abdominal incision today with a TAP block. Her albumin is quite low and will give her albumin over the next 5 days. Hemoglobin is slightly low at 8.1. She has antibodies that are being worked up and will probably have blood available later today and will give her 1 unit of blood when that happens. Otherwise, apart from the delayed primary closure, we will maximize activity, work with pulmonary toilet today, and watch for any signs of additional infections or complications. Jese Grissom MD /[id number]
[2017-12-27] MEDS: Scopolamine 1.5 MG Transdermal Patch TOP SCH (09:00)
[2017-12-27] MEDS: Enoxaparin 40 MG/0.4 ML Syringe SUBCUT SCH (09:00)
[2017-12-27] MEDS: Pantoprazole 40 MG Vial IVPUSH SCH ×2 (09:01→21:04)
[2017-12-27] MEDS: Linezolid 600 MG in Premix Bag 1 BAG IV SCH ×2 (09:49→20:52)
[2017-12-27] MEDS: Escitalopram 10 MG Tab PO SCH (10:06)
[2017-12-27] MEDS: Sodium Chloride 0.9% 250 ML IV SCH ×2 (10:16→23:06)
[2017-12-27] MEDS ORDERED: Furosemide 20 MG/2 ML VIAL IV ONE (10:30)
[2017-12-27] MEDS: AA 5%/Calcium/D15W/Lytes 2,000 ML with MVI, Adult with Vitamin K 10 ML, Chromium/Copper... IV SCH ×3 (14:22)
[2017-12-27] MEDS: ClonazePAM 1 MG Tab PO SCH (21:03)
[2017-12-27] MEDS: Montelukast 10 MG Tab PO SCH (21:05)
[2017-12-28] MEDS: Metoprolol Tartrate 5 MG/5 ML SDV IV SCH ×2 (00:55→05:06)
[2017-12-28] MEDS: Dextrose 5%-Lactated Ringers 1,000 ML IV SCH (01:11)
[2017-12-28] MEDS: Metoclopramide 10 MG/2 ML SDV IVPUSH SCH ×4 (02:20→20:04)
[2017-12-28] MEDS: Meropenem 500 MG in Sodium Chloride 0.9% 50 ML IV SCH ×4 (03:48→23:37)
[2017-12-28] MEDS: Magnesium Sulfate/Water 2 GM in Premix Bag 1 BAG IV SCH (03:50)
[2017-12-28] MEDS: hydrALAZINE 10 MG Tab PO SCH ×3 (06:05→22:20)
[2017-12-28] MEDS: Nystatin Susp 100,000 Unit/ML 5 ML UD Cup PO SCH ×4 (06:06→22:22)
[2017-12-28] MEDS: Sodium Chloride 0.9% 250 ML IV SCH (06:07)
[2017-12-28] MEDS: Albuterol/Ipratropium 3.0-0.5 MG/3 ML Neb Soln INH SCH ×4 (07:24→20:43)
[2017-12-28] MEDS: Formoterol/Mometasone 200-5 MCG 8.8 GM Inhaler IH SCH ×2 (07:24→20:38)
[2017-12-28] MEDS: Escitalopram 10 MG Tab PO SCH (08:04)
[2017-12-28] MEDS ORDERED: Central Total Parenteral Nutrition Bag SCH (08:45)
[2017-12-28] MEDS: Enoxaparin 40 MG/0.4 ML Syringe SUBCUT SCH (09:45)
[2017-12-28] MEDS: VERIFY SCOPOLAMINE PATCH TOP SCH (09:45)
[2017-12-28] MEDS: Linezolid 600 MG in Premix Bag 1 BAG IV SCH ×2 (09:45→22:16)
[2017-12-28] MEDS: Pantoprazole 40 MG Vial IVPUSH SCH ×2 (09:45→20:40)
--- NOTE | 2017-12-28 13:03 | PN ---
DATE OF SERVICE: 12/28/2017 SUBJECTIVE: She was moved up from ICU yesterday. Her vital signs have been stable. She did have yesterday a temp max of 100. J-tube has been flushed. Pain has been managed. She had 2 units of packed red blood cells, and her hemoglobin is 9.7. TPN is running without any difficulty at 83 mL per hour. OBJECTIVE: GENERAL: Shamika Durán is a 42-year-old female. She is alert and orientated. VITAL SIGNS: TPR is 99.6, 96, 16, and blood pressure 130/81. HEENT: Negative. NECK: Supple. HEART: Regular rate and rhythm. LUNGS: Clear. ABDOMEN: Dressings dry and intact. Abdominal binder is on. SHERRI drains have put out 7 and 10 respectively of a light pink serosanguineous drainage. EXTREMITIES: Reveal trace peripheral edema. ASSESSMENT: 1. Delayed primary closure, 12/25/2017. 2. Reopening of recent laparotomy, then repair of internal hernia, volvulus in the ileum, drainage of peritonitis, repair of enterostomy and small bowel. 3. Narcotic-induced unresponsiveness, resolved after Narcan x2. 4. Elevated liver function tests. 5. Acute moderate to high-grade distal small bowel obstruction. 6. Laparotomy with lysis of adhesions and formation of percutaneous jejunostomy tube. PLAN: 1. Continue TPN same rate and content. 2. Full liquid diet. 3. Check CBC, CMP, mag, and phos in a.m. 4. Discontinue IV Lopressor. 5. We will evaluate p.r.n. or in a.m. Shavon Siddiqi PA-C /[id number]
[2017-12-28] MEDS: AA 5%/Calcium/D15W/Lytes 2,000 ML with MVI, Adult with Vitamin K 10 ML, Chromium/Copper... IV SCH ×3 (14:50)
[2017-12-28] MEDS: HYDROmorphone 2 MG Tab PO PRN ×3 (15:19→23:44)
[2017-12-28] MEDS: Sodium Chloride 0.9% 1,000 ML IV SCH (15:20)
[2017-12-28] MEDS: HYDROmorphone 1 MG/ML Syringe IVPUSH PRN ×2 (15:56→18:47)
[2017-12-28] MEDS: Acetaminophen Soln 650 MG/20.3 ML UD Cup PO SCH ×2 (17:42→22:22)
[2017-12-28] MEDS: ClonazePAM 1 MG Tab PO SCH (20:39)
[2017-12-28] MEDS: Montelukast 10 MG Tab PO SCH (20:39)
[2017-12-28] MEDS: Metoprolol Tartrate 25 MG Tab PO SCH (20:46)
[2017-12-29] MEDS: HYDROmorphone 1 MG/ML Syringe IVPUSH PRN ×2 (01:58→05:56)
[2017-12-29] MEDS: Metoclopramide 10 MG/2 ML SDV IVPUSH SCH ×4 (02:02→19:59)
[2017-12-29] MEDS: Meropenem 500 MG in Sodium Chloride 0.9% 50 ML IV SCH ×4 (03:54→22:13)
[2017-12-29] MEDS: Acetaminophen Soln 650 MG/20.3 ML UD Cup PO SCH ×4 (03:59→22:09)
[2017-12-29] MEDS: HYDROmorphone 2 MG Tab PO PRN ×5 (04:01→22:09)
[2017-12-29] MEDS: Nystatin Susp 100,000 Unit/ML 5 ML UD Cup PO SCH ×4 (05:50→22:09)
[2017-12-29] MEDS: hydrALAZINE 10 MG Tab PO SCH ×3 (05:51→22:10)
[2017-12-29] MEDS: Albuterol/Ipratropium 3.0-0.5 MG/3 ML Neb Soln INH SCH ×4 (07:28→20:29)
[2017-12-29] MEDS: Formoterol/Mometasone 200-5 MCG 8.8 GM Inhaler IH SCH ×2 (07:28→20:00)
[2017-12-29] MEDS: Escitalopram 10 MG Tab PO SCH (08:24)
[2017-12-29] MEDS: Enoxaparin 40 MG/0.4 ML Syringe SUBCUT SCH (08:26)
[2017-12-29] MEDS: VERIFY SCOPOLAMINE PATCH TOP SCH (08:26)
[2017-12-29] MEDS: Pantoprazole 40 MG Vial IVPUSH SCH ×2 (08:27→20:31)
[2017-12-29] MEDS: Linezolid 600 MG in Premix Bag 1 BAG IV SCH ×2 (08:27→20:31)
[2017-12-29] MEDS: Metoprolol Tartrate 25 MG Tab PO SCH ×2 (09:41→20:29)
[2017-12-29] MEDS: LORazepam 1 MG Tab PO PRN ×2 (09:42→20:43)
[2017-12-29] MEDS: 1: AA 5%/Calcium/D15W/Lytes 1,000 ML with MVI, Adult with Vitamin K 10 ML, Chromium/Copp IV SCH ×6 (14:45→14:52)
[2017-12-29] MEDS: AA 5%/Calcium/D15W/Lytes 2,000 ML with MVI, Adult with Vitamin K 10 ML, Chromium/Copper... IV SCH ×3 (14:50)
[2017-12-29] MEDS: ClonazePAM 1 MG Tab PO SCH (20:29)
[2017-12-29] MEDS: Montelukast 10 MG Tab PO SCH (20:31)
[2017-12-30] MEDS: Metoclopramide 10 MG/2 ML SDV IVPUSH SCH ×4 (02:01→20:32)
[2017-12-30] MEDS: HYDROmorphone 2 MG Tab PO PRN ×4 (02:02→20:29)
[2017-12-30] MEDS: Acetaminophen Soln 650 MG/20.3 ML UD Cup PO SCH ×4 (03:34→20:59)
[2017-12-30] MEDS: 1: AA 5%/Calcium/D15W/Lytes 1,000 ML with MVI, Adult with Vitamin K 10 ML, Chromium/Copp IV SCH ×6 (03:35→03:40)
[2017-12-30] MEDS: Meropenem 500 MG in Sodium Chloride 0.9% 50 ML IV SCH ×4 (03:39→22:52)
[2017-12-30] MEDS: Sodium Chloride 0.9% 1,000 ML IV SCH (04:59)
[2017-12-30] MEDS: hydrALAZINE 10 MG Tab PO SCH ×3 (05:02→22:52)
[2017-12-30] MEDS: Nystatin Susp 100,000 Unit/ML 5 ML UD Cup PO SCH ×4 (05:02→22:52)
[2017-12-30] MEDS: Albuterol/Ipratropium 3.0-0.5 MG/3 ML Neb Soln INH SCH ×4 (07:30→20:29)
[2017-12-30] MEDS: Formoterol/Mometasone 200-5 MCG 8.8 GM Inhaler IH SCH ×2 (07:30→20:35)
[2017-12-30] MEDS: Pantoprazole 40 MG Vial IVPUSH SCH ×2 (08:51→20:34)
[2017-12-30] MEDS: VERIFY SCOPOLAMINE PATCH TOP SCH (08:52)
[2017-12-30] MEDS: Scopolamine 1.5 MG Transdermal Patch TOP SCH (08:53)
[2017-12-30] MEDS: Metoprolol Tartrate 25 MG Tab PO SCH ×2 (08:54→20:36)
[2017-12-30] MEDS: Enoxaparin 40 MG/0.4 ML Syringe SUBCUT SCH (08:54)
[2017-12-30] MEDS: Linezolid 600 MG in Premix Bag 1 BAG IV SCH ×2 (08:59→20:38)
[2017-12-30] MEDS: LORazepam 1 MG Tab PO PRN ×2 (10:21→23:01)
[2017-12-30] MEDS: Magnesium Hydroxide 400 MG/5 ML Susp 30 ML Cup PO SCH ×2 (12:14→20:34)
[2017-12-30] MEDS: Escitalopram 10 MG Tab PO SCH (12:15)
[2017-12-30] MEDS: Docusate Sodium Liquid 100 MG/10 ML UD Cup PO SCH ×2 (12:15→20:34)
[2017-12-30] MEDS ORDERED: 1: AA 5%/Calcium/D15W/Lytes 1,000 ML with MVI, Adult with Vitamin K 10 ML, Chromium/Copp IV SCH ×3 (17:00)
--- NOTE | 2017-12-30 17:27 | PN ---
DATE OF SERVICE: 12/30/2017 The patient's T-max 100.1. Generally, the patient is feeling good. She had some abdominal pain around the incision, but appears to be at this point normal. She tolerated the tube feedings yesterday 35 mL an hour and then begin backing down on the TPN to 60 mL/hr. She has not moved her bowels for a while. We will begin some liquid Colace and milk of mag through the J-tube today. Otherwise, continue present antibiotics and maximize activity and work with pulmonary toilet. Jese Grissom MD /[id number]
[2017-12-30] MEDS: ClonazePAM 1 MG Tab PO SCH (20:29)
[2017-12-30] MEDS: Montelukast 10 MG Tab PO SCH (20:38)
[2017-12-30] MEDS: Calcium Carbonate 500 MG Tab.Chew PO PRN ×2 (21:09→23:02)
[2017-12-31] MEDS: HYDROmorphone 2 MG Tab PO PRN ×5 (01:00→21:55)
[2017-12-31] MEDS: Metoclopramide 10 MG/2 ML SDV IVPUSH SCH ×4 (01:02→19:36)
[2017-12-31] MEDS: Calcium Carbonate 500 MG Tab.Chew PO PRN ×5 (01:09→19:35)
[2017-12-31] MEDS: Sodium Chloride 0.9% 1,000 ML IV SCH (04:36)
[2017-12-31] MEDS: Meropenem 500 MG in Sodium Chloride 0.9% 50 ML IV SCH ×4 (04:40→23:00)
[2017-12-31] MEDS: Acetaminophen Soln 650 MG/20.3 ML UD Cup PO SCH ×4 (04:45→21:45)
[2017-12-31] MEDS: Nystatin Susp 100,000 Unit/ML 5 ML UD Cup PO SCH ×4 (04:59→21:45)
[2017-12-31] MEDS: hydrALAZINE 10 MG Tab PO SCH ×3 (05:00→21:48)
[2017-12-31] MEDS: Formoterol/Mometasone 200-5 MCG 8.8 GM Inhaler IH SCH ×2 (07:22→21:46)
[2017-12-31] MEDS: Albuterol/Ipratropium 3.0-0.5 MG/3 ML Neb Soln INH SCH ×4 (07:22→21:44)
[2017-12-31] MEDS ORDERED: Central Total Parenteral Nutrition Bag SCH (07:30)
--- NOTE | 2017-12-31 07:49 | PN ---
DATE OF SERVICE: 12/27/2017 HOSPITAL COURSE: The patient had a T-max of 100.2. Vital signs are otherwise stable. The blood pressure is up a little bit, and I think we will give her some Lasix after the second unit of packed RBC's that she will be receiving today, and she will also be transferred to the 2nd floor. She has been moving her bowels and had several loose bowel movements during the night. We will check a stool for C. difficile, but otherwise begin some sips of clear liquids. We will continue the TPN in the interim and the present antibiotics. We will transfer to the 2nd floor today and maximize activity and work with pulmonary toilet. Labs show no major problems. Hemoglobin is up to 9. We will give her 1 additional packed RBCs today. Jese Grissom MD /[id number]
[2017-12-31] MEDS: Linezolid 600 MG in Premix Bag 1 BAG IV SCH ×2 (08:03→21:45)
[2017-12-31] MEDS: Magnesium Hydroxide 400 MG/5 ML Susp 30 ML Cup PO SCH ×2 (08:04→21:45)
[2017-12-31] MEDS: Docusate Sodium Liquid 100 MG/10 ML UD Cup PO SCH ×2 (08:04→21:45)
[2017-12-31] MEDS: Metoprolol Tartrate 25 MG Tab PO SCH ×2 (08:05→21:47)
[2017-12-31] MEDS: Enoxaparin 40 MG/0.4 ML Syringe SUBCUT SCH (08:05)
[2017-12-31] MEDS: Pantoprazole 40 MG Vial IVPUSH SCH (08:05)
[2017-12-31] MEDS: Escitalopram 10 MG Tab PO SCH (08:05)
[2017-12-31] MEDS: VERIFY SCOPOLAMINE PATCH TOP SCH (08:06)
--- NOTE | 2017-12-31 08:10 | PN ---
DATE OF SERVICE: 12/31/2017 SUBJECTIVE: Shamika reports some distention, nausea, heartburn. She has pain on a pain scale of 1-10, 7/10. She is taking Dilaudid 6 mg every 4 hours. Temp max is 100.6. REVIEW OF SYSTEMS: Remainder of review of systems negative for any pertinent positives and negatives. OBJECTIVE: GENERAL: Shamika Durán is a 42-year-old female. VITAL SIGNS: TPR from 0441 hours, 100.6, 101, 15, blood pressure 135/92. HEENT: Negative. NECK: Supple. HEART: Regular rate and rhythm. LUNGS: Clear. ABDOMEN: Dressings dry and intact. J tube is in place and she has 2 SHERRI drains that have put out 0 and 10 mL respectively. EXTREMITIES: Without peripheral edema. ASSESSMENT: 1. Delayed primary closure, 12/25/2017. 2. Reopening of recent laparotomy with repair of internal hernia or volvulus in the ileum, drainage, peritonitis, repair of enterostomy and small bowel. 3. Narcotic induced unresponsiveness, resolved after Narcan x2. 4. Elevated liver function tests, resolved. 5. Higfa-fd-pltjobur high-grade distal small-bowel obstruction. 6. Laparotomy with lysis of adhesion and formation of percutaneous jejunostomy tube. PLAN: 1. Increase TPN to 83 mL per hour. 2. Decrease J tube feedings to 20 mL per hour. 3. CBC, CMP, mag phos. 4. Continue Colace and milk of mag through J tube. This was previously ordered yesterday. 5. We will evaluate p.r.n. or in a.m. Shavon Siddiqi PA-C /[id number]
[2017-12-31] MEDS ORDERED: Pantoprazole 40 MG Tab.CR PO SCH (09:00)
--- NOTE | 2017-12-31 09:28 | PN ---
DATE OF SERVICE: 12/29/2017 HISTORY OF PRESENT ILLNESS: The patient had single elevated temp in the 101 range. Otherwise, she has been afebrile and otherwise looks fairly good. Oral intake remains relatively scant but will encourage that and restart the tube feedings at 20 mL/hr today. She needs a little bit more in the way of pain control, and at this point, we will move the Dilaudid dose up somewhat higher. Will have her get in the shower today and otherwise continue the TPN, maximize activity, and work with pulmonary toilet. Jese Grissom MD /[id number]
[2017-12-31] MEDS: 1: AA 5%/Calcium/D15W/Lytes 1,000 ML with MVI, Adult with Vitamin K 10 ML, Chromium/Copp IV SCH ×6 (09:43→22:14)
[2017-12-31] MEDS: Ondansetron 4 MG/2 ML SDV IVPUSH PRN ×3 (12:08→23:01)
[2017-12-31] MEDS: Pantoprazole 40 MG Tab.CR PO SCH (17:00)
[2017-12-31] MEDS: LORazepam 1 MG Tab PO PRN ×2 (18:36→23:07)
[2017-12-31] MEDS: ClonazePAM 1 MG Tab PO SCH (21:45)
[2017-12-31] MEDS: Montelukast 10 MG Tab PO SCH (21:46)
[2018-01-01] MEDS: LORazepam 2 MG/ML SDV IV PRN (00:26)
[2018-01-01] MEDS: Metoclopramide 10 MG/2 ML SDV IVPUSH SCH ×4 (02:53→21:03)
[2018-01-01] MEDS: Ondansetron 4 MG/2 ML SDV IVPUSH PRN ×3 (03:02→21:10)
[2018-01-01] MEDS: HYDROmorphone 2 MG Tab PO PRN ×4 (03:02→21:11)
[2018-01-01] MEDS: Meropenem 500 MG in Sodium Chloride 0.9% 50 ML IV SCH ×4 (03:03→22:41)
[2018-01-01] MEDS: Sodium Chloride 0.9% 1,000 ML IV SCH (03:03)
[2018-01-01] MEDS: Acetaminophen Soln 650 MG/20.3 ML UD Cup PO SCH ×3 (03:03→16:36)
[2018-01-01] MEDS: Nystatin Susp 100,000 Unit/ML 5 ML UD Cup PO SCH ×4 (06:05→22:41)
[2018-01-01] MEDS: hydrALAZINE 10 MG Tab PO SCH ×3 (06:07→22:41)
[2018-01-01] MEDS: Albuterol/Ipratropium 3.0-0.5 MG/3 ML Neb Soln INH SCH ×4 (07:39→21:12)
[2018-01-01] MEDS: Formoterol/Mometasone 200-5 MCG 8.8 GM Inhaler IH SCH ×2 (07:40→21:10)
[2018-01-01] MEDS ORDERED: Central Total Parenteral Nutrition Bag SCH ×2 (08:00→09:00)
[2018-01-01] MEDS ORDERED: Furosemide 20 MG/2 ML VIAL IVPUSH ONE (08:30)
[2018-01-01] MEDS: Pantoprazole 40 MG Tab.CR PO SCH ×2 (08:45→16:36)
[2018-01-01] MEDS: Docusate Sodium Liquid 100 MG/10 ML UD Cup PO SCH ×2 (08:45→21:12)
[2018-01-01] MEDS: Escitalopram 10 MG Tab PO SCH (08:46)
[2018-01-01] MEDS: Metoprolol Tartrate 25 MG Tab PO SCH ×2 (08:46→21:12)
[2018-01-01] MEDS: Enoxaparin 40 MG/0.4 ML Syringe SUBCUT SCH (08:46)
[2018-01-01] MEDS: VERIFY SCOPOLAMINE PATCH TOP SCH (08:47)
[2018-01-01] MEDS: Linezolid 600 MG in Premix Bag 1 BAG IV SCH ×2 (08:48→21:12)
[2018-01-01] MEDS: Magnesium Hydroxide 400 MG/5 ML Susp 30 ML Cup PO SCH ×2 (08:50→21:04)
[2018-01-01] MEDS ORDERED: Iohexol 300 MG/ML 30 ML Bottle PO ONE (09:08)
[2018-01-01] MEDS: Magnesium Sulfate/Water 2 GM in Premix Bag 1 BAG IV SCH ×3 (09:46→21:11)
[2018-01-01] MEDS: 1: AA 5%/Calcium/D15W/Lytes 1,000 ML with MVI, Adult with Vitamin K 10 ML, Chromium/Copp IV SCH ×6 (10:20→22:37)
[2018-01-01] MEDS ORDERED: Iopamidol 612 MG/ML 150 ML Bottle IV PRN (10:35)
--- NOTE | 2018-01-01 11:08 | PN ---
DATE OF SERVICE: 01/01/2018 HISTORY OF PRESENT ILLNESS: Shamika has had difficulty with nausea, heartburn. She was given IV Ativan, Tums, and she had no relief of symptoms. Continues to take Dilaudid 6 mg every 4 hours. She did have 100 mL emesis after oral Ativan. Also, she reports that she feels swollen allover. Continues with TPN at 83 mL per hour and the J-tube feedings at 20 mL per hour. Oral intake, reports not being hungry. She had 170 mL in yesterday. Urine output is 4500. SHERRI drain 2, one put out 0 and 2 put out 15. REVIEW OF SYSTEMS: Remainder of review of systems negative for any pertinent positives and negatives. OBJECTIVE: GENERAL: Shamika Durán is a 42-year-old female, color pale, appears weak. VITAL SIGNS: TPR is 99.6, 102, 18, blood pressure 142/75, respirations 18, O2 is 93% by pulse oximetry. HEENT: Negative. NECK: Supple. HEART: Regular rate and rhythm. LUNGS: Clear. ABDOMEN: Generalized tenderness in all 4 quadrants. Incisions look good. G-tube intact. SHERRI drains as above. EXTREMITIES: Revealed trace peripheral edema. ASSESSMENT: 1. Delayed primary closure 12/25/2017. 2. Reopening of recurrent laparotomy with repair of internal hernia or volvulus in the ileum, drainage, peritonitis, and repair of enterostomy and small bowel. That surgery was 12/22/2017. 3. Narcotic-induced unresponsiveness, resolved after Narcan x2, 12/22/2017. 4. Elevated liver function tests, resolved. 5. Efzye-al-emyoshea high-grade distal small bowel obstruction. 6. Laparotomy with lysis of adhesion, formation of percutaneous jejunostomy tube. PLAN: 1. Continue TPN, same rate and content. 2. Set up home TPN to be discharged later in the week. 3. Magnesium 2 g IV q.6 hours x48 hours. 4. Lasix 20 mg IV one time. 5. Check CBC, CMP, and phos in the a.m. 6. CT scan with water-soluble contrast 100 mL p.o., then 50 mL water-soluble contrast through J-tube right before CT scan. Page Jese Grissom MD, when the CT scan is completed. INDICATIONS FOR TPN THERAPY: Total gastrectomy, intestinal malabsorption, links of TPN nutrition greater than 90 days. We will evaluate p.r.n. or in the a.m. Shavon Siddiqi PA-C /[id number]
--- NOTE | 2018-01-01 11:14 | CT ---
Abdomen Pelvis w Cont Total DLP 1786 mGycm. INDICATION: PRESISTANT ABDOMINAL PAIN COMPARISON: CT 12/22/2017. FINDINGS: Since the prior CT, interval increase in size of a moderate right pleural effusion with ass ociated compressive atelectasis. Small left pleural effusion. The amount of ascites throughout the ab domen and pelvis is decreased, and there has been marked improvement of the dilated small bowel loops throughout the abdomen. Small bowel loops remain moderately dilated measuring up to 4.3 cm. No defin itive transition point. Surgical drain in the left side of the abdomen. Presumed gastric bypass and c holecystectomy. Small calculi or old barium in the cecum. Small amount of gas in the bladder is presu med to be iatrogenic. Subcutaneous edema. Punctate nonobstructing right renal calculus. Tiny hepatic cyst. Exam otherwise unremarkable. IMPRESSION: 1. Interval enlargement of a moderate right pleural effusion. 2. Interval improvement of ascites throughout the abdomen and pelvis. 3. Persistent dilated small bowel loops, however these are improved since prior exam.
[2018-01-01] MEDS: ClonazePAM 1 MG Tab PO SCH (21:11)
[2018-01-01] MEDS: Montelukast 10 MG Tab PO SCH (21:12)
[2018-01-02] MEDS: Metoclopramide 10 MG/2 ML SDV IVPUSH SCH ×4 (01:21→20:31)
[2018-01-02] MEDS: Ondansetron 4 MG/2 ML SDV IVPUSH PRN ×2 (01:21→05:49)
[2018-01-02] MEDS: Sodium Chloride 0.9% 1,000 ML IV SCH (01:21)
[2018-01-02] MEDS ORDERED: Acetaminophen 1,000 MG in Premix Bag 1 BAG IV STA (03:52)
[2018-01-02] MEDS ORDERED: Acetaminophen 325 MG Tab PO SCH (04:00)
[2018-01-02] MEDS: LORazepam 2 MG/ML SDV IVPUSH PRN ×2 (04:06→07:45)
[2018-01-02] MEDS: Magnesium Sulfate/Water 2 GM in Premix Bag 1 BAG IV SCH ×4 (04:08→22:29)
[2018-01-02] MEDS: Meropenem 500 MG in Sodium Chloride 0.9% 50 ML IV SCH ×4 (04:17→22:32)
[2018-01-02] MEDS: hydrALAZINE 10 MG Tab PO SCH ×3 (05:44→22:30)
[2018-01-02] MEDS: Nystatin Susp 100,000 Unit/ML 5 ML UD Cup PO SCH ×4 (05:48→23:01)
[2018-01-02] MEDS: HYDROmorphone 2 MG Tab PO PRN (07:15)
[2018-01-02] MEDS: Albuterol/Ipratropium 3.0-0.5 MG/3 ML Neb Soln INH SCH ×4 (08:01→20:31)
[2018-01-02] MEDS: Formoterol/Mometasone 200-5 MCG 8.8 GM Inhaler IH SCH ×2 (08:03→20:31)
[2018-01-02] MEDS ORDERED: Prochlorperazine 10 MG in Sodium Chloride 0.9% 50 ML IV PRN (08:13)
[2018-01-02] MEDS ORDERED: diphenhydrAMINE 25 MG Cap PO PRN (08:14)
[2018-01-02] MEDS ORDERED: HYDROmorphone 2 MG Tab PO PRN (08:19)
[2018-01-02] MEDS ORDERED: Central Total Parenteral Nutrition Bag SCH (08:30)
--- NOTE | 2018-01-02 09:26 | CR ---
Chest 1V Frontal INDICATION: thoracentesis FINDINGS: Comparison 12/25/2017. Left central line with tip in the upper SVC. Moderate right and small left pleural effusions. The right pleural effusion has decreased in size since prior exam. Bibasilar infiltrate or atelectasis. Surgical drains in the abdomen. No evidence for pneumothorax.
--- NOTE | 2018-01-02 10:37 | PN ---
DATE OF SERVICE: 01/02/2018 SUBJECTIVE: Shamika had a CT scan of her abdomen and pelvic yesterday, does show some continuation of an ileus and also showed a pleural effusion. She will be having procedure done at bedside by Dr. Jese Grissom this morning. Continues to report severe nausea. Oral intake was 720, which has improved and jejunostomy tube feeding is off and she is continued on TPN therapy. Staff notes that during the day, she has not reported any nausea and it increases at bedtime. REVIEW OF SYSTEMS: Remainder of review of systems negative for any pertinent positives and negatives. OBJECTIVE: GENERAL: Shamika Durán is a 42-year-old female. Color is flushed. VITAL SIGNS: Temp max 100.6. Currently TPR is 97, 98, 16. Blood pressure 126/71. HEENT: Negative. NECK: Supple. HEART: Regular rate and rhythm. LUNGS: Clear. ABDOMEN: No change. Incisions look good. Binder is on. J-tube intact. EXTREMITIES: With trace peripheral edema. SCDs have been on. ASSESSMENT: 1. Pleural effusion to be drained at bedside. 2. Persistent chronic nausea. 3. Delayed primary closure, 12/25/2017. 4. Reopening of recurrent laparotomy with repair of internal hernia or volvulus in the ileum, drainage of peritonitis, and repair of enterostomy and small-bowel, 12/22/2017. Noah Rene MD. 5. Narcotic induced unresponsiveness, resolved after Narcan, 12/22/2017. 6. Elevated liver function tests, resolved. 7. Mmaup-lt-xzhnrwut high-grade distal small-bowel obstruction. Laparotomy with lysis of adhesion, formation of percutaneous jejunostomy tube. PLAN: 1. Discontinue Zofran. 2. Compazine 10 mg IV q.6 hours p.r.n. nausea. 3. Continue TPN same rate and content. 4. Gabapentin 100 mg p.o. t.i.d. 5. Cymbalta 20 mg p.o. daily. 6. Tramadol 50 mg q.6 hours p.r.n. pain. 7. Change Tylenol to p.r.n. 8. Benadryl 50 mg q.6 hours p.r.n. anxiety and sleep. 9. Dilaudid 2-4 mg q.6 hours p.r.n. severe pain only when gabapentin, Tylenol, and tramadol are not covering pain. 10.Discontinue IV and p.o. Ativan and continue with the clonazepam 1 mg at bedtime. 11.Good pulmonary toilet. 12.We will evaluate p.r.n. or in a.m. Shavon Siddiqi PA-C /[id number]
[2018-01-02] MEDS: Docusate Sodium Liquid 100 MG/10 ML UD Cup PO SCH ×2 (10:41→20:34)
[2018-01-02] MEDS: VERIFY SCOPOLAMINE PATCH TOP SCH (10:42)
[2018-01-02] MEDS: Magnesium Hydroxide 400 MG/5 ML Susp 30 ML Cup PO SCH ×2 (10:42→20:35)
[2018-01-02] MEDS: Linezolid 600 MG in Premix Bag 1 BAG IV SCH ×2 (10:44→20:35)
[2018-01-02] MEDS: Gabapentin 100 MG Cap PO SCH ×3 (10:45→20:35)
[2018-01-02] MEDS: Escitalopram 10 MG Tab PO SCH (10:46)
[2018-01-02] MEDS: Enoxaparin 40 MG/0.4 ML Syringe SUBCUT SCH (10:47)
[2018-01-02] MEDS: Pantoprazole 40 MG Tab.CR PO SCH ×2 (10:47→16:30)
[2018-01-02] MEDS: Scopolamine 1.5 MG Transdermal Patch TOP SCH (10:48)
[2018-01-02] MEDS: DULoxetine 20 MG Cap PO SCH (10:48)
[2018-01-02] MEDS: traMADol 50 MG Tab PO PRN ×3 (10:55→20:32)
[2018-01-02] MEDS: 1: AA 5%/Calcium/D15W/Lytes 1,000 ML with MVI, Adult with Vitamin K 10 ML, Chromium/Copp IV SCH ×3 (10:56)
[2018-01-02] MEDS: Metoprolol Tartrate 25 MG Tab PO SCH ×2 (11:01→20:45)
[2018-01-02] MEDS: Acetaminophen 325 MG Tab PO PRN (13:21)
--- NOTE | 2018-01-02 15:28 | PN ---
DATE OF SERVICE: 01/02/2018 ADDENDUM: Shamika Durán is a 42-year-old female who will be discharged on TPN 83 mL/hour for unspecified surgical malabsorption, total gastrectomy, and history of gastroparesis. She will need TPN therapy for greater than 90 days. Shavon Siddiqi PA-C /[id number]
[2018-01-02] MEDS: ClonazePAM 1 MG Tab PO SCH (20:32)
[2018-01-02] MEDS: Montelukast 10 MG Tab PO SCH (20:35)
[2018-01-02] MEDS ORDERED: Prochlorperazine 10 MG Tab PO PRN (21:12)
[2018-01-03] MEDS: Acetaminophen 325 MG Tab PO PRN ×3 (00:21→20:12)
[2018-01-03] MEDS: 1: AA 5%/Calcium/D15W/Lytes 1,000 ML with MVI, Adult with Vitamin K 10 ML, Chromium/Copp IV SCH ×6 (00:22→12:27)
[2018-01-03] MEDS: Metoclopramide 10 MG/2 ML SDV IVPUSH SCH ×4 (02:13→20:12)
[2018-01-03] MEDS: Sodium Chloride 0.9% 1,000 ML IV SCH (02:13)
[2018-01-03] MEDS: traMADol 50 MG Tab PO PRN ×4 (02:48→20:11)
[2018-01-03] MEDS: Meropenem 500 MG in Sodium Chloride 0.9% 50 ML IV SCH ×4 (04:59→22:56)
[2018-01-03] MEDS: Magnesium Sulfate/Water 2 GM in Premix Bag 1 BAG IV SCH ×4 (04:59→21:39)
[2018-01-03] MEDS: hydrALAZINE 10 MG Tab PO SCH ×3 (05:04→21:51)
[2018-01-03] MEDS: Nystatin Susp 100,000 Unit/ML 5 ML UD Cup PO SCH ×4 (05:15→21:47)
[2018-01-03] MEDS: Formoterol/Mometasone 200-5 MCG 8.8 GM Inhaler IH SCH ×2 (07:13→21:53)
[2018-01-03] MEDS: Pantoprazole 40 MG Tab.CR PO SCH ×2 (07:14→15:59)
[2018-01-03] MEDS: Albuterol/Ipratropium 3.0-0.5 MG/3 ML Neb Soln INH SCH ×4 (07:39→21:53)
[2018-01-03] MEDS ORDERED: Central Total Parenteral Nutrition Bag SCH (07:45)
--- NOTE | 2018-01-03 09:32 | PN ---
DATE OF SERVICE: 01/03/2018 SUBJECTIVE: Shamika had no nausea during the past 24 hours. TPN is running at 83 mL per hour. Oral intake was 260. She states she is tired of step-2 and would like to have her diet advanced, thinking that things all tastes the same and she really does not have much of an appetite. SHERRI drain put out 1 and #2 put out 0. J-tube has been clamped. Up ambulating. REVIEW OF SYSTEMS: Remainder of review of systems negative for any pertinent positives and negatives. OBJECTIVE: GENERAL: Shamika Durán is a 42-year-old female. VITAL SIGNS: TPR 97.1, 95, 18. Blood pressure 121/61. HEENT: Negative. NECK: Supple. HEART: Regular rate and rhythm. LUNGS: Clear. She had almost a liter of fluid drained yesterday per Jese Grissom M.D. Culture came back negative of the pleural effusion. ABDOMEN: [place] intact. SHERRI drains look good. Area of skin around the J-tube negative for any redness, swelling, or drainage. Abdominal binder has been on. EXTREMITIES: Without peripheral edema. SCDs on. ASSESSMENT: 1. TPN therapy. 2. Pleural effusion. 3. Persistent chronic nausea, currently resolved. 4. Delayed primary closure, 12/25/2017. 5. Reopening of recurrent laparotomy with repair of internal hernia or volvulus in the ileum, drainage of peritonitis, and repair of enterostomy and small bowel, date 12/22/2017; surgeon, Noah Rene M.D. 6. Narcotic-induced unresponsiveness, resolved after Narcan x2, date 12/22/2017. 7. Elevated liver function tests, resolved. 8. Skbug-np-rbwwuowp high-grade distal small bowel obstruction. Laparotomy with lysis of adhesions and formation of percutaneous jejunostomy tube. PLAN: 1. Continue same TPN rate and content. 2. Discontinue SHERRI drains. 3. Low residue soft diet. 4. Have 3 med cups at bedside to drink 1 med cup every 20 minutes or 3 per hour. 5. New binder, one that is elastic that will be more supportive. 6. Good pulmonary toilet. 7. We will evaluate p.r.n. or in the a.m. Plan discharge with TPN for greater than 90 days, diagnosis of total gastrectomy with unspecified surgical malabsorption, history of gastroparesis. Continue good pulmonary toilet. We will evaluate p.r.n. or in the a.m. Shavon Siddiqi PA-C /[id number]
[2018-01-03] MEDS: Escitalopram 10 MG Tab PO SCH (09:33)
[2018-01-03] MEDS: Metoprolol Tartrate 25 MG Tab PO SCH ×2 (09:33→21:48)
[2018-01-03] MEDS: DULoxetine 20 MG Cap PO SCH (09:34)
[2018-01-03] MEDS: Enoxaparin 40 MG/0.4 ML Syringe SUBCUT SCH (09:35)
[2018-01-03] MEDS: Magnesium Hydroxide 400 MG/5 ML Susp 30 ML Cup PO SCH ×2 (09:35→22:00)
[2018-01-03] MEDS: Gabapentin 100 MG Cap PO SCH ×3 (09:35→21:48)
[2018-01-03] MEDS: VERIFY SCOPOLAMINE PATCH TOP SCH (09:35)
[2018-01-03] MEDS: Docusate Sodium Liquid 100 MG/10 ML UD Cup PO SCH ×2 (09:36→21:47)
[2018-01-03] MEDS: Linezolid 600 MG in Premix Bag 1 BAG IV SCH ×2 (09:36→21:37)
--- NOTE | 2018-01-03 09:38 | OR ---
DATE OF PROCEDURE: 01/02/2018 PREOPERATIVE DIAGNOSIS: Right pleural effusion. POSTOPERATIVE DIAGNOSIS: Right pleural effusion. PROCEDURE: Ultrasound-guided right thoracentesis. ANESTHESIA: Local. [employer] DRIVER: ALEJANDRO Sol INDICATION FOR PROCEDURE: The patient had a CT scan yesterday and noted to have a large right pleural effusion. She is to undergo a thoracentesis at this time for therapeutic and diagnostic purposes. Potential risks including bleeding, infection, pneumothorax and such were reviewed, and the patient wishes to proceed. DESCRIPTION OF PROCEDURE: The patient was placed in sitting position on her hospital bed. Ultrasound marked the right posterolateral chest wall with a moira to identify satisfactory placement of the thoracentesis, and that area was then prepped and draped, anesthetized with 1% lidocaine. A thoracentesis catheter was placed. 2 L of slightly off-colored, but otherwise arellano serous fluid was removed, as much fluid as possible removed, and the catheter withdrawn and dressing applied. Chest x-ray showed marked improvement. There is still some small pleural fluid present but the vast majority had been removed. Labs are pending on the fluid. Should it show some organisms, will need to put a chest tube in later today. Jese Grissom MD /[id number]
--- NOTE | 2018-01-03 11:06 | CR ---
Postsurgical change at the abdomen. There is a drain eccentric to the left. Possible drains within th e pelvis. There is some gaseous distention of the colon. A few air-fluid levels within the colon. Fin dings may relate to ileus.
--- NOTE | 2018-01-03 11:07 | CR ---
Low lung volumes. Bilateral pleural effusions right greater than left similar with atelectasis or inf iltrate the lung bases. Left subclavian line similar.
[2018-01-03] MEDS ORDERED: hydrOXYzine HCl 100 MG/2 ML SDV IM PRN (12:34)
[2018-01-03] MEDS: ClonazePAM 1 MG Tab PO SCH (21:48)
[2018-01-03] MEDS: Montelukast 10 MG Tab PO SCH (21:52)
[2018-01-04] MEDS: Metoclopramide 10 MG/2 ML SDV IVPUSH SCH ×2 (01:54→07:43)
[2018-01-04] MEDS: traMADol 50 MG Tab PO PRN (02:04)
[2018-01-04] MEDS: Sodium Chloride 0.9% 1,000 ML IV SCH (02:07)
[2018-01-04] MEDS: 1: AA 5%/Calcium/D15W/Lytes 1,000 ML with MVI, Adult with Vitamin K 10 ML, Chromium/Copp IV SCH ×3 (02:33)
[2018-01-04] MEDS: Nystatin Susp 100,000 Unit/ML 5 ML UD Cup PO SCH ×2 (05:33→12:26)
[2018-01-04] MEDS: hydrALAZINE 10 MG Tab PO SCH (05:41)
[2018-01-04] MEDS: Magnesium Sulfate/Water 2 GM in Premix Bag 1 BAG IV SCH (05:41)
[2018-01-04 07:11] VITALS: BP 129/87
[2018-01-04] MEDS: Albuterol/Ipratropium 3.0-0.5 MG/3 ML Neb Soln INH SCH ×2 (07:19→11:01)
[2018-01-04] MEDS: Formoterol/Mometasone 200-5 MCG 8.8 GM Inhaler IH SCH (07:19)
[2018-01-04] MEDS: Pantoprazole 40 MG Tab.CR PO SCH (07:43)
[2018-01-04] MEDS: DULoxetine 20 MG Cap PO SCH (12:24)
[2018-01-04] MEDS: Escitalopram 10 MG Tab PO SCH (12:24)
[2018-01-04] MEDS: Metoprolol Tartrate 25 MG Tab PO SCH (12:24)
[2018-01-04] MEDS: Docusate Sodium Liquid 100 MG/10 ML UD Cup PO SCH (12:24)
[2018-01-04] MEDS: VERIFY SCOPOLAMINE PATCH TOP SCH (12:25)
[2018-01-04] MEDS: Magnesium Hydroxide 400 MG/5 ML Susp 30 ML Cup PO SCH (12:25)
[2018-01-04] MEDS: Enoxaparin 40 MG/0.4 ML Syringe SUBCUT SCH (12:25)
[2018-01-04] MEDS: Gabapentin 100 MG Cap PO SCH (12:25)
--- NOTE | 2018-01-04 15:18 | DISCH ---
ADMISSION DIAGNOSES: Nausea and vomiting with retained food in Vivek limb suggestive of edema, partial obstruction and recent small bowel obstruction; malnutrition, status post total gastrectomy; unspecified surgical malabsorption; B12 deficiency; asthma; anxiety; and chronic constipation. DISCHARGE DIAGNOSES: 1. On 12/16/2017, upper gastrointestinal endoscopy for nausea and vomiting, which revealed retained food in Vivek limb suggestive of edema and partial obstruction. 2. On 12/16/2017, laparotomy with lysis of adhesions and formation of tube jejunostomy, small bowel resection to facilitate moving of Vivek limb into the antecolic position. 3. Placement of Interceed mesh to limit recurrent adhesion formation between the pelvis and abnormal agudelo, and underlying viscera. 4. Malnutrition. Partial small bowel obstruction at the point where Vivek limb passed behind the colon. HISTORY: Shamika Durán presented to the hospital after evaluation at the [facility], with recommendation for placement of feeding tube. After preoperative evaluation and discussion of possible risks and possible complications, she wished to proceed with surgical procedure. After jejunostomy tube was placed, she was started on tube feedings. She did well until 12/22/2017, where she was found to be unresponsive, was given Narcan twice. This was thought to be due to narcotics. At that time, she also had, on 12/22/2017, reopening of recent laparotomy, repair of internal hernia, volvulus ileum, drainage of peritonitis and repair of enterotomy at small bowel for 3500 mL of serosanguineous fluid in abdomen, adhesions causing essentially a volvulus in the distal ileum and the pelvis, Vivek limb anastomosis without abnormality in the rectal colic type fashion, functional bowel obstruction of the jejunum due to retaining suture of the jejunum and tear in the jejunum due to tension on the retaining suture. Surgeon, Noah Rene MD. At that time of surgery. Liver function tests were extremely elevated with an AST of 383, ALT of 421, alkaline phos of 271. By the next morning, her liver function test had decreased and eventually normalized. She had a delayed primary closure on 12/24/2017 for open abdominal incision, Jese Grissom MD. After her delayed primary closure, she was started on the jejunostomy tube feedings. She did not tolerate them very well, so was started on TPN therapy. Her J tube was clamped. She was started on the TPN therapy. She did receive 2 units of packed red blood cells for hemoglobin of 9. Vital signs did remain stable. She did have some low-grade temps thought to be secondary to pulmonary function. On 01/02/2018, a CT scan was done, and she was noted to have a right pleural effusion, and she had 2 L of fluid removed at the bedside, Jese Grissom MD. Medications were adjusted after discontinuation of Dilaudid, 6 mg every 4 hours. Her nausea did improve somewhat. Oral intake remained to be low, ranging anywhere from 120 to, she had one day of 720. On a full liquid diet. Activity did improve. Her pain was managed. Nausea was at her normal prior to surgery. She was able to be discharged to home on 01/04/2018 with [facility] and 24-hour TPN therapy. PHYSICAL EXAMINATION: GENERAL: Shamika Durán is a 42-year-old female. Alert and orientated. VITAL SIGNS: Height is 5 feet 5 inches. Weight is 215 pounds. TPR 99.4, 92, 16, and blood pressure 129/87. HEENT: Negative. NECK: Supple. HEART: Regular rate and rhythm. LUNGS: Clear. ABDOMEN: Incisions look good. Steri-Strips over the incision. J tube intact. She has a Rivers catheter in. Dressing intact. EXTREMITIES: Without peripheral edema. DISPOSITION: Discharged to home. CONDITION: Stable and improving. FOLLOWUP APPOINTMENT: With Shavon Siddiqi PA-C, on 01/09/2018 at 10 a.m. DISCHARGE MEDICATIONS: Home Medications: 1. Colace 50 mg/5 mL, 100 mg p.o. b.i.d., #100 mL. 2. Cymbalta 20 mg p.o. daily. 3. Compazine 10 mg p.o. q.6 hours p.r.n. nausea, #30. 4. Tramadol 50 mg every 4 hours p.r.n. pain, #30. 5. Tylenol scheduled q.6 hours. 6. Apresoline 10 mg p.o. every 8 hours. 7. Klonopin 1 mg at bedtime. 8. Zyrtec 10 mg p.o. daily. 9. Symbicort 160/4.5 mcg 2 puffs b.i.d. 10.DuoNeb 3 mL b.i.d. 11.Xopenex 1.25 mg nebulizer every 6 hours. 12.Probiotic 1 daily. 13.Vitamin B12 1000 mcg IM every 7 days. 14.Vitamin B12 sublingual, 500 mg. 15.Singulair 10 mg daily. 16.Protonix 40 mg p.o. every 24 hours. 17.Silvadene 1 gram topical b.i.d. 18.Lexapro 10 mg p.o. daily. 19.Multivitamin b.i.d. 20.Breo Ellipta 200/25 mcg inhaled one puff daily. 21.Flonase 2 sprays each nostril. 22.Scopolamine patch, replace every 3 days. DISCHARGE DIET: Low-residue soft diet. Drink 8 to 10 glasses of water a day. ACTIVITY: As tolerated. Do not drive while on tramadol. May shower. Keep operative site clean and dry. Wear abdominal binder. Keep J tube clamped. DISCHARGE INSTRUCTIONS: Notify provider if any fever or increased pain. Special instruction; Rivers, dressing changes, and labs to be done by [facility]. Use incentive spirometer 10 times every hour while awake for 1 week and only take one of antinausea medication, do not take all of them, and write down everything you eat and drink.
== END 2018-01-04 12:45 | disposition home health service (06) | DRG 950 ==
LOC: JP.SDS 09:06 → JP.MS 09:06 → EDSTATUS 12:00 → JP.ICU 14:47 → JP.MS 12-15 17:18 → JP.2SS 12-18 13:00 → JP.ICU 12-22 14:27 → JP.MS 12-27 12:30
PROVIDERS: ADMIT Surgery; ATTEND Surgery
PROC: 0DHA3UZ Insertion of Feeding Device into Jejunum, Percutaneous Approach (ICD-10-PCS; principal; 2017-12-14)
PROC: 0DB80ZX Excision of Small Intestine, Open Approach, Diagnostic (ICD-10-PCS; 2017-12-14)
PROC: 0DN80ZZ Release Small Intestine, Open Approach (ICD-10-PCS; 2017-12-14)
PROC: 3E0M05Z Introduction of Adhesion Barrier into Peritoneal Cavity, Open Approach (ICD-10-PCS; 2017-12-14)
PROC: 0DJ08ZZ Inspection of Upper Intestinal Tract, Via Natural or Artificial Opening Endoscopic (ICD-10-PCS; 2017-12-16)
PROC: 02H633Z Insertion of Infusion Device into Right Atrium, Percutaneous Approach (ICD-10-PCS; 2017-12-19)
PROC: B214YZZ Fluoroscopy of Right Heart using Other Contrast (ICD-10-PCS; 2017-12-19)
PROC: 3E0T3BZ Introduction of Anesthetic Agent into Peripheral Nerves and Plexi, Percutaneous Approach (ICD-10-PCS; 2017-12-19)
PROC: 0D980ZZ Drainage of Small Intestine, Open Approach (ICD-10-PCS; 2017-12-19)
PROC: 3E0M05Z Introduction of Adhesion Barrier into Peritoneal Cavity, Open Approach (ICD-10-PCS; 2017-12-19)
PROC: 0WQF0ZZ Repair Abdominal Wall, Open Approach (ICD-10-PCS; 2017-12-20)
PROC: 0DNW0ZZ Release Peritoneum, Open Approach (ICD-10-PCS; 2017-12-22)
PROC: 0DQ80ZZ Repair Small Intestine, Open Approach (ICD-10-PCS; 2017-12-22)
PROC: 0DS80ZZ Reposition Small Intestine, Open Approach (ICD-10-PCS; 2017-12-22)
PROC: 0WQF0ZZ Repair Abdominal Wall, Open Approach (ICD-10-PCS; 2017-12-22)
PROC: 3E0T3BZ Introduction of Anesthetic Agent into Peripheral Nerves and Plexi, Percutaneous Approach (ICD-10-PCS; 2017-12-25)
PROC: 0WQF0ZZ Repair Abdominal Wall, Open Approach (ICD-10-PCS; 2017-12-25)
PROC: 30233N1 Transfusion of Nonautologous Red Blood Cells into Peripheral Vein, Percutaneous Approach (ICD-10-PCS; 2017-12-26)
PROC: 30233N1 Transfusion of Nonautologous Red Blood Cells into Peripheral Vein, Percutaneous Approach (ICD-10-PCS; 2017-12-27)
PROC: 0DBA0ZX Excision of Jejunum, Open Approach, Diagnostic (ICD-10-PCS; 2018-01-02)
PROC: 0W993ZX Drainage of Right Pleural Cavity, Percutaneous Approach, Diagnostic (ICD-10-PCS; 2018-01-02)
DX: E46 Unspecified protein-calorie malnutrition (principal); K91.2 Postsurgical malabsorption, not elsewhere classified; Z68.31 Body mass index [BMI] 31.0-31.9, adult; K91.0 Vomiting following gastrointestinal surgery; K56.600 Partial intestinal obstruction, unspecified as to cause; K65.0 Generalized (acute) peritonitis; Z48.1 Encounter for planned postprocedural wound closure; E83.42 Hypomagnesemia; K56.50 Intestinal adhesions [bands], unspecified as to partial versus complete obstruction; K56.7 Ileus, unspecified; K46.9 Unspecified abdominal hernia without obstruction or gangrene; K63.89 Other specified diseases of intestine; K63.1 Perforation of intestine (nontraumatic); K56.2 Volvulus; R79.89 Other specified abnormal findings of blood chemistry; R53.83 Other fatigue; R79.1 Abnormal coagulation profile; R18.8 Other ascites; T40.2X5A Adverse effect of other opioids, initial encounter; Y92.230 Patient room in hospital as the place of occurrence of the external cause; J90 Pleural effusion, not elsewhere classified; E53.8 Deficiency of other specified B group vitamins; J45.909 Unspecified asthma, uncomplicated; F41.9 Anxiety disorder, unspecified; F32.9 Major depressive disorder, single episode, unspecified; K59.09 Other constipation; G47.33 Obstructive sleep apnea (adult) (pediatric); M54.9 Dorsalgia, unspecified; M54.2 Cervicalgia; Z88.5 Allergy status to narcotic agent; Z91.018 Allergy to other foods; Z98.84 Bariatric surgery status; Z98.0 Intestinal bypass and anastomosis status; I10 Essential (primary) hypertension
CPT/HCPCS: 36415; 36430; 70450; 71045; 71045-26; 71046; 71046-26; 71275; 74019; 74019-26; 74176; 74177; 74177-26; 74240; 74240-26; 76998; 80053; 81001; 82140; 82150; 82607; 82728; 82746; 82945; 82962; 83615; 83735; 83880; 83986; 84100; 84155; 84425; 85025; 85027; 85379; 85610; 86850; 86870; 86880; 86900; 86901; 86920; 86922; 86970; 87015; 87040; 87070; 87075; 87077; 87102; 87116; 87205; 87206; 87220; 87493; 88112; 88305; 88307; 89050; 94640; 94640-76; 94762; 97110-GP; 97116-GP; 97162-GP; 97530-GP; A9270-GY; C9113; J0131; J0171; J0330; J0690; J0694; J0780; J1100; J1170; J1642; J1650; J1940; J2001; J2020; J2060; J2185; J2250; J2310; J2405; J2543; J2704; J2710; J2765; J2795; J3010; J3411; J3475; J3490; J7030; J7040; J7042; J7050; J7120; J7620; P9016; P9047; Q9965; Q9967

== ENCOUNTER 2018-01-07 23:01 | Inpatient (IN) | payer BC, MEDICAID ==
--- NOTE | 2018-01-08 01:48 | EDM.PDOC ---
ED HPI GENERAL MEDICAL PROBLEM - General Chief Complaint: Fever Stated Complaint: temp Time Seen by Provider: 01/07/18 23:20 Source of Information: Reports: Patient History Limitations: Reports: No Limitations - History of Present Illness INITIAL COMMENTS - FREE TEXT/NARRATIVE: 42-year-old female who was just discharged from the hospital 3 days ago is being supplemented with TPN, has developed a fever over the past 12 hours and was told to come into the hospital if it gets over 101.5. She also has developed some mild to moderate abdominal discomfort and minimal nausea. She was chilled most of today. Onset: Gradual (Over the course of last 24 hours) Severity: Moderate Associated Symptoms: Reports: Fever/Chills, Loss of Appetite, Malaise, Nausea/ Vomiting. Denies: Chest Pain, Shortness of Breath Left Abdominal Pain Score (Numeric/FACES): 6 - Related Data Allergies Allergy/AdvReac Type Severity Reaction Status Date / Time banana Allergy Severe Swollen Verified 12/14/17 09:55 Tongue walnut Allergy Intermediate Swollen Verified 12/14/17 09:55 Tongue mold Allergy Wheezing Verified 12/14/17 09:55 morphine Allergy Hives Verified 12/14/17 09:55 poison corine extract Allergy Rash Verified 12/14/17 09:55 pollen extracts Allergy Wheezing Verified 12/14/17 09:55 DUST Allergy Unknown Wheezing Uncoded 12/14/17 09:55 SMOKE AdvReac Intermediate Bronchospas Uncoded 12/14/17 09:55 ms Home Meds: Home Meds Montelukast [Singulair] 10 mg PO DAILY #30 tab 01/10/14 [Rx] Albuterol/Ipratropium [DuoNeb 3.0-0.5 MG/3 ML] 3 ml INH BID 12/07/15 [History] ClonazePAM [KlonoPIN] 1 mg PO BEDTIME 07/10/16 [History] Budesonide/Formoterol Fumarate [Symbicort 160-4.5 Mcg Inhaler] 2 puff IH BID [History] Cyanocobalamin (Vitamin B-12) [Vitamin B-12] 500 mcg SL DAILY 11/09/16 [History] Lactobacillus Acidophilus [Probiotic] 1 each PO DAILY 11/09/16 [History] Levalbuterol Tartrate [Xopenex HFA] 2 puff INH Q4H PRN 11/09/16 [History] Levalbuterol HCl [Xopenex] 1.25 mg NEB Q6H PRN 11/30/16 [History] Acetaminophen [Tylenol Jr. Meltaways] 640 mg PO Q4H PRN #0 tab.dis 12/13/16 [Rx] Scopolamine [Transderm-Scop] 1.5 mg TOP Q3D PRN #3 patch 02/19/17 [Rx] Escitalopram Oxalate 10 mg PO DAILY 04/28/17 [History] Cetirizine [ZyrTEC] 10 mg PO DAILY tablet 11/17/17 [Rx] Pantoprazole [ProTONIX Granules] 40 mg PO Q24H packet 11/17/17 [Rx] Prochlorperazine [Compazine] 5 mg PO Q6H PRN tablet 11/17/17 [Rx] Ergocalciferol (Vitamin D2) [Vitamin D2] 50,000 unit PO DAILY 12/14/17 [History] Fluticasone Propionate [Flonase] 2 spray NASBOTH DAILY 12/14/17 [History] MV,Ca,Min/Iron Fum/FA/Vit K [Multi For Her Tablet] 1 tab PO DAILY 12/14/17 [ History] Omeprazole Magnesium [Prilosec] 10 ml PO DAILY 12/14/17 [History] hydrALAZINE [Apresoline] 10 mg PO Q8H 12/14/17 [History] Acetaminophen [Tylenol] 650 mg PO Q6H PRN tablet 01/04/18 [Rx] DULoxetine [Cymbalta] 20 mg PO DAILY #90 cap 01/04/18 [Rx] Docusate Sodium [Colace 50 MG/5 ML Liquid] 100 mg PO BID #100 ml 01/04/18 [Rx] Escitalopram [Lexapro] 10 mg PO DAILY tablet 01/04/18 [Rx] traMADol [Ultram] 50 mg PO Q4H PRN #30 tablet 01/04/18 [Rx] Past Medical History HEENT History: Reports: Sinusitis, Other (See Below) Other HEENT History: TMJ. soften Palate. polyps on larynx Cardiovascular History: Reports: Heart Murmur, Other (See Below) Other Cardiovascular History: Mitral Valve Regurgitation. Left heart faliure "stiff". Rivers in place Respiratory History: Reports: Asthma, Bronchitis, Recurrent, COPD, Intubation, Previous, Pneumonia, Recurrent, Pneumothorax, Sleep Apnea, SOB, Other (See Below ) Other Respiratory History: polyp on larynx; intubated x2 after "quit breathing" . 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 History: Reports: Polycystic Ovaries, Musculoskeletal History: Reports: Back Pain, Chronic, Fracture, Fibromyalgia, Other (See Below) Other Musculoskeletal History: knee/ankle pain bilateral Neurological History: Reports: Concussion, Headaches, Chronic, Migraines, Seizure, Vertigo Psychiatric History: Reports: Anxiety, Depression, Eating Disorders, Mood Swings , Panic Attack Endocrine/Metabolic History: Reports: Obesity/BMI 30+, Vitamin D Deficiency, Other (See Below) Other Endocrine/Metabolic History: prediabetic/adrenal gland deficiency Hematologic History: Reports: Anemia, B12 Deficiency, Folic Acid Immunologic History: Reports: Other (See Below) Other Immunologic History: due to steriod use for medical reasons, "they" feel her immune system is compromised Oncologic (Cancer) History: Reports: None Dermatologic History: Reports: Cellulitis, Other (See Below) Other Dermatologic History: biopsy of face for moles - Infectious Disease History Infectious Disease History: Reports: Chicken Pox, Shingles Other Infectious Disease History: Viral meningitis - Past Surgical History Head Surgeries/Procedures: Reports: None HEENT Surgical History: Reports: LASIK, Oral Surgery Cardiovascular Surgical History: Reports: Other (See Below) Other Cardiovascular Surgeries/Procedures: angiogram Respiratory Surgical History: Reports: None GI Surgical History: Reports: Cholecystectomy, EGD, Esophageal Dilatation, Hernia Repair/Other, Niegl Fundoplication, Other (See Below) Other GI Surgeries/Procedures: full gastroectomy. feeding tube Female Surgical History: Reports: Section, Tubal Ligation Endocrine Surgical History: Reports: None Neurological Surgical History: Reports: None Musculoskeletal Surgical History: Reports: None Dermatological Surgical History: Reports: Skin Biopsy Social & Family History - Family History Family Medical History: Noncontributory Cardiac: Reports: Pacemaker Respiratory: Reports: Asthma, COPD, Other (See Below) Other Respiratory Family Hisory: bronchitis GI: Reports: Irritable Bowel Syndrome OBGYN: Reports: Musculoskeletal: Reports: Arthritis Neurological: Reports: Cerebral Aneurysms Psychiatric: Reports: Anxiety, Depression Endocrine/Metabolic: Reports: Diabetes, type II, Hypothyroidism, Obesity/MBI 30+ , Vitamin D Deficiency Hematologic: Reports: B12 Deficiency Immunologic: Reports: None Oncologic: Reports: Brain, Lung, Skin - Tobacco Use Smoking Status *Q: Never Smoker Second Hand Smoke Exposure: No - Caffeine Use Caffeine Use: Reports: None Other Caffeine Use: 2 cups coffee per day and 1-2 sodas Caffeine Use Comment: 2-3 cups daily - Alcohol Use Days Per Week of Alcohol Use: 0 - Recreational Drug Use Recreational Drug Use: No - Living Situation & Occupation Living situation: Reports: , with Family Occupation: Employed ED ROS GENERAL - Review of Systems Review Of Systems: See Below Constitutional: Reports: Fever, Chills, Malaise, Weakness HEENT: Reports: Vision Change (Patient claims that she's lost some right-sided vision over the last couple of hours). Denies: Throat Pain Respiratory: Denies: Shortness of Breath, Cough Cardiovascular: Denies: Chest Pain GI/Abdominal: Reports: Abdominal Pain, Nausea : Reports: No Symptoms Neurological: Reports: Headache (Frequent headaches through the weekend) ED EXAM, GI/ABD - Physical Exam Exam: See Below Exam Limited By: No Limitations General Appearance: Alert, No Apparent Distress Eyes: Bilateral: Normal Appearance Respiratory/Chest: No Respiratory Distress, Lungs Clear Cardiovascular: Regular Rate, Rhythm, Tachycardia GI/Abdominal Exam: Tender (She does react with tenderness to palpation across the upper abdomen), Abnormal Bowel Sounds (Bowel sounds are very hypoactive), Other (Surgical incision looks excellent) Course - Vital Signs Last Recorded V/S: Last Vital Signs Temp 102.2 F H 01/08/18 02:21 Pulse 105 H 01/08/18 02:21 Resp 16 01/08/18 02:21 BP 139/83 01/08/18 02:21 Pulse Ox 94 L 01/08/18 02:21 - Orders/Labs/Meds Orders: Active Orders 24 hr Category Date Time Status CULTURE BLOOD [BC] Urgent Lab 01/08/18 00:25 Ordered CULTURE BLOOD [BC] Urgent Lab 01/08/18 00:35 Ordered Blood Culture x2 Reflex Set [OM.PC] Urgent Oth 01/08/18 00:16 Ordered Medication Orders Hydromorphone HCl (Dilaudid Consulting Project Director 15 Mg In Ns 30 Ml) 0 mg IV ASDIRECTED PRN; Protocol PRN Reason: STERILIZER OPERATOR PAIN CONTROL Last Admin: 01/08/18 02:48 Dose: 15 mg Dextrose/Lactated Ringer's (Dextrose 5%-Lactated Ringers) 1,000 mls @ 200 mls/ hr IV ASDIRECTED ALEX Last Admin: 01/08/18 02:37 Dose: 200 mls/hr Meropenem 500 mg/ Sodium (Chloride) 50 mls @ 100 mls/hr IV Q6H [facility] Last Admin: 01/08/18 02:38 Dose: 100 mls/hr Naloxone HCl (Narcan) 0.1 mg IV ASDIRECTED PRN PRN Reason: decreased respiratory rate Labs: Laboratory Tests 01/08/18 01/08/18 01/08/18 Range/Units 00:25 00:25 00:25 WBC 3.9 L (4.5-11.0) K/uL RBC 3.71 (3.30-5.50) M/uL Hgb 11.0 L D (12.0-15.0) g/dL Hct 32.7 L (36.0-48.0) % MCV 88 (80-98) fL MCH 30 (27-31) pg MCHC 34 (32-36) % Plt Count 493 H (150-400) K/uL Neut % (Auto) 74 H (36-66) % Lymph % (Auto) 15 L (24-44) % [place] % (Auto) 8 H (2-6) % Eos % (Auto) 3 (2-4) % Baso % (Auto) 1 (0-1) % Sodium 139 L (140-148) mmol/L Potassium 4.1 (3.6-5.2) mmol/L Chloride 102 (100-108) mmol/L Carbon Dioxide 26 (21-32) mmol/L Anion Gap 15.1 H (5.0-14.0) mmol/L BUN 17 (7-18) mg/dL Creatinine 0.5 L (0.6-1.0) mg/dL Est Cr Clr Drug Dosing 133.24 mL/min Estimated GFR (MDRD) > 60 (>60) Glucose 90 (74-106) mg/dL Lactic Acid 0.7 (0.4-2.0) mmol/L Calcium 8.4 L (8.5-10.1) mg/dL Total Bilirubin 0.4 (0.2-1.0) mg/dL AST 27 (15-37) U/L ALT 59 (12-78) U/L Alkaline Phosphatase 106 (46-116) U/L Total Protein 7.5 (6.4-8.2) g/dL Albumin 3.0 L (3.4-5.0) g/dL Globulin 4.5 H (2.3-3.5) g/dL Albumin/Globulin Ratio 0.7 L (1.2-2.2) Meds: Medications Generic Name Dose Route Start Last Admin Trade Name Freq PRN Reason Stop Dose Admin Hydromorphone HCl 0 mg 01/08/18 02:05 01/08/18 02:48 Dilaudid Consulting Project Director 15 Mg In Ns 30 Ml IV 15 mg ASDIRECTED PRN Administration STERILIZER OPERATOR PAIN CONTROL Protocol Dextrose/Lactated Ringer's 1,000 mls @ 200 mls/hr 01/08/18 02:15 01/08/18 02: 37 Dextrose 5%-Lactated Ringers IV 200 mls/hr ASDIRECTED ALEX Administration Meropenem 500 mg/ Sodium 50 mls @ 100 mls/hr 01/08/18 03:00 01/08/18 02:38 Chloride IV 100 mls/hr Q6H ALEX Administration Naloxone HCl 0.1 mg 01/08/18 02:05 Narcan IV ASDIRECTED PRN decreased respiratory rate Discontinued Medications Generic Name Dose Route Start Last Admin Trade Name Freq PRN Reason Stop Dose Admin Heparin Sodium (Porcine) Confirm 01/08/18 00:37 01/08/18 02:42 Heparin Lock Flush 100 Units/Ml Administered 01/08/18 00:38 Not Given Dose 500 units .ROUTE .STK-MED ONE - Re-Assessments/Exams Free Text/Narrative Re-Assessment/Exam: 01/08/18 01:45 White count was 3900, lactic acid was normal. A recheck of her temperature was at 102.0. I discussed her presentation with Dr. Grissom, he recommended inpatient admission with IV antibiotics and reevaluation with CT scan of the abdomen in the morning. She'll also be placed on a Dilaudid STERILIZER OPERATOR for pain control. Meropenem 500 mg every 6 hours was started. 01/08/18 01:46 Hemoglobin was 11.0, very acceptable level for her compared to past levels. Electrolytes were also reassuring, kidney function was normal and liver enzymes were normal. Departure - Departure Time of Disposition: 02:02 Disposition: Admitted As Inpatient 67 Condition: Fair Clinical Impression: Bariatric surgery status, Fever and chills Abdominal pain Qualifiers: Abdominal location: upper abdomen, unspecified Qualified Code(s): R10.10 - Upper abdominal pain, unspecified - Discharge Information - My Orders Last 24 Hours: My Active Orders 01/08/18 00:16 Blood Culture x2 Reflex Set [OM.PC] Urgent 01/08/18 00:25 CULTURE BLOOD [BC] Urgent 01/08/18 00:35 CULTURE BLOOD [BC] Urgent - Assessment/Plan Last 24 Hours: My Active Orders 01/08/18 00:16 Blood Culture x2 Reflex Set [OM.PC] Urgent 01/08/18 00:25 CULTURE BLOOD [BC] Urgent 01/08/18 00:35 CULTURE BLOOD [BC] Urgent
[2018-01-08] MEDS ORDERED: HYDROmorphone/Normal Saline 15 MG/30 ML PCA IV PRN (02:05)
[2018-01-08] MEDS ORDERED: Naloxone 0.4 MG/ML SDV IV PRN (02:05)
[2018-01-08] MEDS ORDERED: Dextrose 5%-Lactated Ringers 1,000 ML IV SCH ×2 (02:15→07:00)
[2018-01-08] MEDS: Meropenem 500 MG in Sodium Chloride 0.9% 50 ML IV SCH ×2 (02:38→09:06)
[2018-01-08] MEDS ORDERED: Iopamidol 612 MG/ML 150 ML Bottle IV SCH (06:45)
[2018-01-08] MEDS ORDERED: Sodium Chloride 0.9% 100 ML IV SCH (06:45)
[2018-01-08] MEDS ORDERED: Iohexol 647 MG/ML 50 ML SDV PO SCH (08:15)
[2018-01-08] MEDS ORDERED: Iohexol 300 MG/ML 30 ML Bottle PO ONE (09:58)
[2018-01-08] MEDS ORDERED: 1: AA 5%/Calcium/D15W/Lytes 1,000 ML with MVI, Adult with Vitamin K 10 ML, Chromium/Copp IV SCH ×6 (10:30→11:00)
--- NOTE | 2018-01-08 11:03 | CT ---
Abdomen Pelvis w Cont HISTORY: Abdominal pain. Prior gastric bypass. COMPARISON: Prior CT scan 01/01/2018. Prior plain films 01/03/2018. FINDINGS: Moderate right-sided pleural effusion with some adjacent compressive atelectatic change. Th is is similar to prior study Previously seen surgical drain in the anterior left abdomen has been removed patient now has a jejuno stomy tube. Contrast was injected through the jejunostomy tube. The small bowel is minimally opacifie d. The opacified small bowel loops are normal in caliber. There remains some small bowel in the left abdomen with some mild bowel wall thickening image 94 through 112 just adjacent to the patient's dist al anastomosis. This is also seen on coronal image 36. There is been prior cholecystectomy. The liver, spleen, pancreas, adrenal glands and abdominal aorta appear normal. Asymmetry no hydronephrosis. There is a small amount of ascites in the deep pelvis. In the posterior cul-de-sac there is a rim-enhancing fluid-filled area measuring 4.5 cm transverse x 2. 8 cm AP x 3.0 cm craniocaudal could represent developing abscess. This fluid collection was larger on prior study measuring 6.7 cm transverse x 4.8 cm AP in size. The ascites in the abdomen seen previou sly has improved. Persistent fluid pocket in the left pelvic gutter image 121 measuring 3.4 cm AP x 2 .9 cm transverse. Although the fluid pocket has improved in size from the prior study is now has some rim enhancement developing abscess not excluded. Impression: 1. Interval removal of surgical drain in the anterior left abdomen. Patient has a J-tube that CT cont rast was administered. There are only a few small bowel loops that are opacified with contrast. A lot of the small bowel loops in the left abdomen adjacent to the distal anastomosis have some mucosal th ickening in the representing infectious or inflammatory process. 2. Fluid collection in the deep pelvis has decreased in size however has some rim enhancement abscess not excluded versus seroma. Fluid pocket in the left pelvic gutter in the upper left hemipelvis also is smaller than prior study however has some rim enhancement and could represent seroma or developin g abscess. 3. Moderate size pleural effusion with adjacent compressive atelectasis similar to prior study.
[2018-01-08] MEDS ORDERED: Ampicillin/Sulbactam Na 3 GM in Sodium Chloride 0.9% 100 ML IV SCH (12:00)
[2018-01-08] MEDS: Ampicillin/Sulbactam Na 3 GM in Sodium Chloride 0.9% 100 ML IV SCH ×2 (12:55→18:17)
[2018-01-08] MEDS ORDERED: Fluconazole/Normal Saline 400 MG in Premix Bag 200 BAG IV SCH (14:00)
[2018-01-08] MEDS: Fluconazole/Normal Saline 400 MG in Premix Bag 1 BAG IV SCH (15:52)
[2018-01-08] MEDS ORDERED: Lidocaine 1% 50 ML MDV INJECT ONE (16:00)
[2018-01-08] MEDS: Albuterol/Ipratropium 3.0-0.5 MG/3 ML Neb Soln NEB SCH ×2 (16:09→20:17)
[2018-01-08] MEDS ORDERED: Levalbuterol HCl 1.25 MG/3 ML Neb NEB PRN (18:23)
[2018-01-08] MEDS ORDERED: ESCITALOPRAM 5 MG/5 ML PO SCH (18:30)
[2018-01-08] MEDS ORDERED: Linezolid 600 MG in Premix Bag 1 BAG IV SCH (18:30)
--- NOTE | 2018-01-08 18:38 | PCM.CONS ---
H&P History of Present Illness - General Date of Service: 01/08/18 Admit Problem/Dx: Admission Diagnosis/Problem Admission Diagnosis/Problem Fever Source of Information: Patient, Family, Old Records, Provider, RN Notes Reviewed History Limitations: Reports: No Limitations - History of Present Illness Initial Comments - Free Text/Narative: This patient is a 50-year-old woman who I have been asked to see by Dr. Grissom for further suggestions concerning evaluation and management of fever. She has a very long and complicated past medical history. Recently hospitalized for a period of 22 days with several surgeries and intra-abdominal infection. She was discharged home 4 days ago, with a right sided central line in place for TPN. She has had ongoing difficulty with nausea and vomiting in difficulty in obtaining enough oral intake to maintain hydration and calories. Yesterday evening developed abrupt onset of significant temperature elevation and presented to the emergency department for further evaluation. Blood cultures were drawn from the central line as well as peripherally. Today cultures from the central line are showing growth and Yeast was noted. Central line has been removed this afternoon by Dr. Grissom, final ID and sensitivities and the culture are pending at this time.CT scan of the abdomen was also obtained in the emergency department and shows 2 areas of fluid collection that appeared to be stable from previous CT scan. Left Abdominal Pain Score (Numeric/FACES): 6 - Related Data Allergies/Adverse Reactions: Allergies Allergy/AdvReac Type Severity Reaction Status Date / Time banana Allergy Severe Swollen Verified 12/14/17 09:55 Tongue walnut Allergy Intermediate Swollen Verified 12/14/17 09:55 Tongue mold Allergy Wheezing Verified 12/14/17 09:55 morphine Allergy Hives Verified 12/14/17 09:55 poison corine extract Allergy Rash Verified 12/14/17 09:55 pollen extracts Allergy Wheezing Verified 12/14/17 09:55 DUST Allergy Unknown Wheezing Uncoded 12/14/17 09:55 SMOKE AdvReac Intermediate Bronchospas Uncoded 12/14/17 09:55 ms Home Medications: Home Meds Montelukast [Singulair] 10 mg PO DAILY #30 tab 01/10/14 [Rx] Albuterol/Ipratropium [DuoNeb 3.0-0.5 MG/3 ML] 3 ml INH BID 12/07/15 [History] ClonazePAM [KlonoPIN] 1 mg PO BEDTIME 07/10/16 [History] Budesonide/Formoterol Fumarate [Symbicort 160-4.5 Mcg Inhaler] 2 puff IH BID [History] Cyanocobalamin (Vitamin B-12) [Vitamin B-12] 500 mcg SL DAILY 11/09/16 [History] Lactobacillus Acidophilus [Probiotic] 1 each PO DAILY 11/09/16 [History] Levalbuterol Tartrate [Xopenex HFA] 2 puff INH Q4H PRN 11/09/16 [History] Levalbuterol HCl [Xopenex] 1.25 mg NEB Q6H PRN 11/30/16 [History] Acetaminophen [Tylenol Jr. Meltaways] 640 mg PO Q4H PRN #0 tab.dis 12/13/16 [Rx] Scopolamine [Transderm-Scop] 1.5 mg TOP Q3D PRN #3 patch 02/19/17 [Rx] Escitalopram Oxalate 10 mg PO DAILY 04/28/17 [History] Cetirizine [ZyrTEC] 10 mg PO DAILY tablet 11/17/17 [Rx] Pantoprazole [ProTONIX Granules] 40 mg PO Q24H packet 11/17/17 [Rx] Prochlorperazine [Compazine] 5 mg PO Q6H PRN tablet 11/17/17 [Rx] Ergocalciferol (Vitamin D2) [Vitamin D2] 50,000 unit PO DAILY 12/14/17 [History] Fluticasone Propionate [Flonase] 2 spray NASBOTH DAILY 12/14/17 [History] MV,Ca,Min/Iron Fum/FA/Vit K [Multi For Her Tablet] 1 tab PO DAILY 12/14/17 [ History] Omeprazole Magnesium [Prilosec] 10 ml PO DAILY 12/14/17 [History] hydrALAZINE [Apresoline] 10 mg PO Q8H 12/14/17 [History] Acetaminophen [Tylenol] 650 mg PO Q6H PRN tablet 01/04/18 [Rx] DULoxetine [Cymbalta] 20 mg PO DAILY #90 cap 01/04/18 [Rx] Docusate Sodium [Colace 50 MG/5 ML Liquid] 100 mg PO BID #100 ml 01/04/18 [Rx] Escitalopram [Lexapro] 10 mg PO DAILY tablet 01/04/18 [Rx] traMADol [Ultram] 50 mg PO Q4H PRN #30 tablet 01/04/18 [Rx] Past Medical History HEENT History: Reports: Sinusitis, Other (See Below) Other HEENT History: TMJ. soften Palate. polyps on larynx Cardiovascular History: Reports: Heart Murmur, Other (See Below) Other Cardiovascular History: Mitral Valve Regurgitation. Left heart faliure "stiff". Rivers in place Respiratory History: Reports: Asthma, Bronchitis, Recurrent, COPD, Intubation, Previous, Pneumonia, Recurrent, Pneumothorax, Sleep Apnea, SOB, Other (See Below ) Other Respiratory History: polyp on larynx; intubated x2 after "quit breathing" . c-pap Gastrointestinal History: Reports: Bowel Obstruction, Cholelithiasis, Chronic Constipation, Chronic Diarrhea, GERD, Hiatal Hernia Genitourinary History: Reports: Urinary Incontinence [employer] History: Reports: Polycystic Ovaries, Musculoskeletal History: Reports: Back Pain, Chronic, Fracture, Fibromyalgia, Other (See Below) Other Musculoskeletal History: knee/ankle pain bilateral Neurological History: Reports: Concussion, Headaches, Chronic, Migraines, Seizure, Vertigo Psychiatric History: Reports: Anxiety, Depression, Eating Disorders, Mood Swings , Panic Attack Endocrine/Metabolic History: Reports: Obesity/BMI 30+, Vitamin D Deficiency, Other (See Below) Other Endocrine/Metabolic History: prediabetic/adrenal gland deficiency Hematologic History: Reports: Anemia, B12 Deficiency, Folic Acid Immunologic History: Reports: Other (See Below) Other Immunologic History: due to steriod use for medical reasons, "they" feel her immune system is compromised Oncologic (Cancer) History: Reports: None Dermatologic History: Reports: Cellulitis, Other (See Below) Other Dermatologic History: biopsy of face for moles - Infectious Disease History Infectious Disease History: Reports: Chicken Pox, Shingles Other Infectious Disease History: Viral meningitis - Past Surgical History Head Surgeries/Procedures: Reports: None HEENT Surgical History: Reports: LASIK, Oral Surgery Cardiovascular Surgical History: Reports: Other (See Below) Other Cardiovascular Surgeries/Procedures: angiogram Respiratory Surgical History: Reports: None GI Surgical History: Reports: Cholecystectomy, EGD, Esophageal Dilatation, Hernia Repair/Other, Nigel Fundoplication, Other (See Below) Other GI Surgeries/Procedures: full gastroectomy. feeding tube Female Surgical History: Reports: Section, Tubal Ligation Endocrine Surgical History: Reports: None Neurological Surgical History: Reports: None Musculoskeletal Surgical History: Reports: None Dermatological Surgical History: Reports: Skin Biopsy Social & Family History - Family History Family Medical History: Noncontributory Cardiac: Reports: Pacemaker Respiratory: Reports: Asthma, COPD, Other (See Below) Other Respiratory Family Hisory: bronchitis GI: Reports: Irritable Bowel Syndrome OBGYN: Reports: Musculoskeletal: Reports: Arthritis Neurological: Reports: Cerebral Aneurysms Psychiatric: Reports: Anxiety, Depression Endocrine/Metabolic: Reports: Diabetes, type II, Hypothyroidism, Obesity/MBI 30+ , Vitamin D Deficiency Hematologic: Reports: B12 Deficiency Immunologic: Reports: None Oncologic: Reports: Brain, Lung, Skin - Tobacco Use Smoking Status *Q: Never Smoker Second Hand Smoke Exposure: No - Caffeine Use Caffeine Use: Reports: None Other Caffeine Use: 2 cups coffee per day and 1-2 sodas Caffeine Use Comment: 2-3 cups daily - Alcohol Use Days Per Week of Alcohol Use: 0 - Recreational Drug Use Recreational Drug Use: No - Living Situation & Occupation Living situation: Reports: , with Family Occupation: Employed H&P Review of Systems - Review of Systems: Review Of Systems: See Below General: Reports: Fever, Chills, Weakness HEENT: Reports: Visual Changes (New loss of left visual field of the right eye) Pulmonary: Reports: No Symptoms Cardiovascular: Reports: No Symptoms Gastrointestinal: Reports: Abdominal Pain, Decreased Appetite, Nausea, Vomiting. Denies: Diarrhea, Difficulty Swallowing, Distension Genitourinary: Reports: No Symptoms Musculoskeletal: Reports: Back Pain Skin: Reports: No Symptoms Psychiatric: Reports: Depression, Anxiety Neurological: Reports: No Symptoms Hematologic/Lymphatic: Reports: No Symptoms Immunologic: Reports: No Symptoms Exam - Exam Exam: See Below - Vital Signs Vital Signs: Last Vital Signs Temp 100.4 F 01/08/18 17:00 Pulse 101 H 01/08/18 17:00 Resp 16 01/08/18 17:00 BP 137/75 01/08/18 17:00 Pulse Ox 96 01/08/18 17:00 Weight: 193 lb 6.4 oz - Exam Quality Assessment: DVT Prophylaxis General: Alert, Oriented, Cooperative, Mild Distress HEENT: Conjunctiva Clear, Hearing Intact, Mucosa Moist & [place], Normal Nasal Septum, Posterior Pharynx Clear, Pupils Equal, Other (defect of the left visual field right eye) Neck: Supple, Trachea Midline, +2 Carotid Pulse wo Bruit Lungs: Clear to Auscultation, Normal Respiratory Effort Cardiovascular: Regular Rate, Regular Rhythm, Normal S1, Normal S2. No: Systolic Murmur, Diastolic Murmur GI/Abdominal Exam: Soft, Non-Tender, No Organomegaly, No Distention Back Exam: Full Range of Motion, Vertebral Tenderness Extremities: Non-Tender, No Pedal Edema Skin: Warm, Dry, Intact Neurological: Strength Equal Bilateral, Normal Speech, Normal Tone, Sensation Intact Neuro Extensive - Mental Status: Alert, Oriented x3, Normal Cognition, Memory Intact - Patient Data Lab Results Last 24 hrs: Laboratory Results - last 24 hr 01/08/18 01/08/18 01/08/18 Range/Units 00:25 00:25 00:25 WBC 3.9 L (4.5-11.0) K/uL RBC 3.71 (3.30-5.50) M/uL Hgb 11.0 L D (12.0-15.0) g/dL Hct 32.7 L (36.0-48.0) % MCV 88 (80-98) fL MCH 30 (27-31) pg MCHC 34 (32-36) % Plt Count 493 H (150-400) K/uL Neut % (Auto) 74 H (36-66) % Lymph % (Auto) 15 L (24-44) % [place] % (Auto) 8 H (2-6) % Eos % (Auto) 3 (2-4) % Baso % (Auto) 1 (0-1) % Sodium 139 L (140-148) mmol/L Potassium 4.1 (3.6-5.2) mmol/L Chloride 102 (100-108) mmol/L Carbon Dioxide 26 (21-32) mmol/L Anion Gap 15.1 H (5.0-14.0) mmol/L BUN 17 (7-18) mg/dL Creatinine 0.5 L (0.6-1.0) mg/dL Est Cr Clr Drug Dosing 133.24 mL/min Estimated GFR (MDRD) > 60 (>60) Glucose 90 (74-106) mg/dL Lactic Acid 0.7 (0.4-2.0) mmol/L Calcium 8.4 L (8.5-10.1) mg/dL Total Bilirubin 0.4 (0.2-1.0) mg/dL AST 27 (15-37) U/L ALT 59 (12-78) U/L Alkaline Phosphatase 106 (46-116) U/L Total Protein 7.5 (6.4-8.2) g/dL Albumin 3.0 L (3.4-5.0) g/dL Globulin 4.5 H (2.3-3.5) g/dL Albumin/Globulin Ratio 0.7 L (1.2-2.2) Result Diagrams: 01/08/18 00:25 01/08/18 00:25 Ash Results Last 24 hrs: Microbiology 01/08/18 00:35 Anaerobic Blood Culture - Preliminary Blood - Central Line Consult PN Assessment/Plan Procedures: Procedures AIRWAY INHALATION TREATMENT (12/19/16) ASSAY OF ACTH (05/25/16) ASSAY OF AMYLASE (12/01/17) ASSAY OF LACTIC ACID (07/10/16) ASSAY OF LIPASE (12/01/17) ASSAY OF MAGNESIUM (12/02/17) ASSAY OF NATRIURETIC PEPTIDE (11/24/15) ASSAY OF PHOSPHORUS (12/01/17) ASSAY OF SOMATOMEDIN (05/25/16) ASSAY OF TROPONIN QUANT (06/28/17) ASSAY THYROID STIM HORMONE (12/01/17) BEHAVRAL QUALIT ANALYS VOICE (05/24/16) BILIRUBIN DIRECT (06/22/17) BLOOD CULTURE FOR BACTERIA (10/19/16) BLOOD GASES ANY COMBINATION (07/10/16) C-REACTIVE PROTEIN (10/21/17) CHEST X-RAY 1 VIEW FRONTAL (07/10/16) CHEST X-RAY 2VW FRONTAL&LATL (06/28/17) CHORIONIC GONADOTROPIN ASSAY (06/29/13) COMPLETE CBC AUTOMATED (06/22/17) COMPLETE CBC W/AUTO DIFF WBC (12/02/17) COMPREHEN METABOLIC PANEL (12/01/17) CONTRST X-RAY UPPR GI TRACT (10/23/16) CT ABD & PELV W/CONTRAST (10/21/17) CT ABD & PELVIS W/O CONTRAST (12/01/17) CT ABDOMEN W/O DYE (11/24/16) CULTURE SCREEN ONLY (10/21/17) EGD BALLOON DIL ESOPH30 MM/> (12/07/16) EGD DILATE STRICTURE (02/08/17) ELECTROCARDIOGRAM TRACING (06/28/17) EMERGENCY DEPT VISIT (12/02/17) EMERGENCY DEPT VISIT (12/02/17) EMERGENCY DEPT VISIT (12/01/17) EMERGENCY DEPT VISIT (12/01/17) EMERGENCY DEPT VISIT (06/28/17) EMERGENCY DEPT VISIT (04/28/17) EMERGENCY DEPT VISIT (02/06/17) EMERGENCY DEPT VISIT (02/06/17) EMERGENCY DEPT VISIT (10/14/16) EMERGENCY DEPT VISIT (06/29/13) ESOPH EGD DILATION <30 MM (10/02/17) FIBRIN DEGRADATION QUANT (12/04/13) HOT OR COLD PACKS THERAPY (06/07/16) HYDRATE IV INFUSION ADD-ON (12/01/17) HYDRATION IV INFUSION INIT (02/06/17) INFLUENZA A/B AG IA (06/29/13) INFLUENZA ASSAY W/OPTIC (10/21/17) INSERT TUNNELED CV CATH (11/18/16) MANUAL THERAPY 1/> REGIONS (10/30/13) MEASURE BLOOD OXYGEN LEVEL (11/24/16) METABOLIC PANEL TOTAL CA (12/02/17) PROTHROMBIN TIME (06/28/17) PT EVALUATION (06/07/16) RBC SED RATE NONAUTOMATED (07/10/16) ROUTINE VENIPUNCTURE (12/02/17) SPEECH/HEARING THERAPY (06/07/16) STREP A AG IA (10/21/17) THER/DIAG CONCURRENT INF (12/19/16) THER/PROPH/DIAG INJ IV PUSH (12/01/17) THER/PROPH/DIAG INJ SC/IM (11/24/16) THER/PROPH/DIAG IV INF ADDON (12/02/17) THER/PROPH/DIAG IV INF INIT (12/02/17) THERAPEUTIC EXERCISES (06/07/16) TOTAL CORTISOL (05/25/16) TTE W/DOPPLER COMPLETE (01/05/14) TX/PRO/DX INJ NEW DRUG ADDON (12/01/17) TX/PRO/DX INJ SAME DRUG APPEALS NURSE (12/19/16) TX/PROPH/DG ADDL SEQ IV INF (11/24/16) URINALYSIS AUTO W/SCOPE (12/02/17) URINE CULTURE/COLONY COUNT (10/21/17) WITHDRAWAL OF ARTERIAL BLOOD (07/10/16) X-RAY EXAM OF ABDOMEN (10/19/16) X-RAY EXAM OF LOWER LEG (02/03/17) X-RAY EXAM OF PELVIS (02/03/17) X-RAY EXAM SERIES ABDOMEN (10/21/17) X-RAY UPPER GI DELAY W/O KUB (07/17/17) Problem List Initiated/Reviewed/Updated: Yes My Orders Last 24 Hours: My Active Orders 01/08/18 18:16 Dietary Supplements [RC] QIDACANDBED 01/08/18 18:23 Acetaminophen [Tylenol Jr. Meltaways] 640 mg PO Q4H PRN Levalbuterol HCl [Xopenex] 1.25 mg NEB Q6H PRN traMADol [Ultram] 50 mg PO Q4H PRN 01/08/18 18:29 PT Evaluation and Treatment [CONS] Routine LORazepam [Ativan] 0.5 mg IVPUSH Q4H PRN 01/08/18 18:30 Budesonide/Formoterol Fumarate [Symbicort 160-4.5 Mcg Inhaler] 2 puff IH BID Cyanocobalamin (Vitamin B-12) [Vitamin B-12] 500 mcg SL DAILY DULoxetine [Cymbalta] 20 mg PO DAILY Escitalopram [Lexapro] 10 mg PO DAILY Fluticasone Propionate [Flonase] DOSE gm NASBOTH DAILY Lactobacillus Acidophilus [Probiotic] 1 each PO DAILY Linezolid [Zyvox] 600 mg Premix Bag 1 bag IV Q12H Montelukast [Singulair] 10 mg PO DAILY Pantoprazole [ProTONIX Granules] 40 mg PO Q24H hydrALAZINE [Apresoline] 10 mg PO Q8H 01/08/18 21:00 ClonazePAM [KlonoPIN] 1 mg PO BEDTIME Docusate Sodium [Colace 50 MG/5 ML Liquid] 100 mg PO BID 01/09/18 08:00 Brain w wo Cont [MR] Routine Plan: ASSESSMENT AND RECOMMENDATIONS FEVER-likely secondary to central line, this was removed earlier this afternoon by Dr. Grissom. Final culture results are pending at the present time. -Continue Unasyn and fluconazole -Add Zyvox 600 mg IV every 12 hours, pending culture results -We'll need to consider further evaluation for abdominal source of infection if fever does not resolve with current antibiotic therapy and removal of the central line NEW VISUAL FIELD DEFECT RIGHT EYE -MRI with and without contrast of the brain in a.m. HYPERTENSION -Resume outpatient medical therapy Requesting Provider: MERLYN Date Consult Requested: 01/08/18 Reason for Consult: fever Patient History Reviewed: Yes Admission H&P Reviewed: No (not yet available)
[2018-01-08] MEDS: LORazepam 2 MG/ML SDV IVPUSH PRN ×2 (19:31→23:19)
[2018-01-08] MEDS ORDERED: Vancomycin 1 GM SDV IV SCH (20:00)
[2018-01-08] MEDS: Fluticasone Propionate Nasal Spray 16 GM Bottle NASBOTH SCH (20:11)
[2018-01-08] MEDS: DULoxetine 20 MG Cap PO SCH (20:11)
[2018-01-08] MEDS: Pantoprazole 40 MG Delayed-Release Granules 1 Packet PO SCH (20:11)
[2018-01-08] MEDS: Montelukast 10 MG Tab PO SCH (20:12)
[2018-01-08] MEDS: Cyanocobalamin (Vitamin B12) 1,000 MCG Tab PO SCH (20:12)
[2018-01-08] MEDS: Docusate Sodium Liquid 100 MG/10 ML UD Cup PO SCH (20:13)
[2018-01-08] MEDS: hydrALAZINE 10 MG Tab PO SCH (20:13)
[2018-01-08] MEDS: ClonazePAM 1 MG Tab PO SCH (20:14)
[2018-01-08] MEDS: Formoterol/Mometasone 200-5 MCG 8.8 GM Inhaler IH SCH (20:14)
[2018-01-08] MEDS: Acetaminophen 160 MG Tab,Disintegrating PO PRN (22:40)
[2018-01-08] MEDS ORDERED: Acetaminophen 1,000 MG in Premix Bag 1 BAG IV ONE (23:25)
[2018-01-08] MEDS: Dextrose 5%-Lactated Ringers 1,000 ML IV SCH (23:42)
[2018-01-09] MEDS: Ampicillin/Sulbactam Na 3 GM in Sodium Chloride 0.9% 100 ML IV SCH ×4 (01:17→17:22)
[2018-01-09] MEDS: hydrALAZINE 10 MG Tab PO SCH ×3 (02:31→17:19)
[2018-01-09] MEDS: Albuterol/Ipratropium 3.0-0.5 MG/3 ML Neb Soln NEB SCH ×4 (07:21→20:30)
[2018-01-09] MEDS: Formoterol/Mometasone 200-5 MCG 8.8 GM Inhaler IH SCH ×2 (08:03→20:31)
[2018-01-09] MEDS: LORazepam 2 MG/ML SDV IVPUSH PRN ×2 (08:10→13:44)
--- NOTE | 2018-01-09 08:18 | PCM.HP ---
H&P History of Present Illness - General Date of Service: 01/09/18 Admit Problem/Dx: Admission Diagnosis/Problem Admission Diagnosis/Problem Fever Source of Information: Patient History Limitations: Reports: No Limitations - History of Present Illness Initial Comments - Free Text/Narative: Kiara developed a temperature of 103 at home and presented to the ED. Onset of Symptoms: Reports: Gradual Symptom Onset Date: 12/29/17 Duration of Symptoms: Reports: Waxing/Waning Associated Symptoms: Reports: Fever/Chills, Headaches, Loss of Appetite, Weakness Left Abdominal Pain Score (Numeric/FACES): 6 - Related Data Allergies/Adverse Reactions: Allergies Allergy/AdvReac Type Severity Reaction Status Date / Time banana Allergy Severe Swollen Verified 12/14/17 09:55 Tongue walnut Allergy Intermediate Swollen Verified 12/14/17 09:55 Tongue mold Allergy Wheezing Verified 12/14/17 09:55 morphine Allergy Hives Verified 12/14/17 09:55 poison corine extract Allergy Rash Verified 12/14/17 09:55 pollen extracts Allergy Wheezing Verified 12/14/17 09:55 DUST Allergy Unknown Wheezing Uncoded 12/14/17 09:55 SMOKE AdvReac Intermediate Bronchospas Uncoded 12/14/17 09:55 ms Home Medications: Home Meds Montelukast [Singulair] 10 mg PO DAILY #30 tab 01/10/14 [Rx] Albuterol/Ipratropium [DuoNeb 3.0-0.5 MG/3 ML] 3 ml INH BID 12/07/15 [History] ClonazePAM [KlonoPIN] 1 mg PO BEDTIME 07/10/16 [History] Budesonide/Formoterol Fumarate [Symbicort 160-4.5 Mcg Inhaler] 2 puff IH BID [History] Cyanocobalamin (Vitamin B-12) [Vitamin B-12] 500 mcg SL DAILY 11/09/16 [History] Lactobacillus Acidophilus [Probiotic] 1 each PO DAILY 11/09/16 [History] Levalbuterol Tartrate [Xopenex HFA] 2 puff INH Q4H PRN 11/09/16 [History] Levalbuterol HCl [Xopenex] 1.25 mg NEB Q6H PRN 11/30/16 [History] Acetaminophen [Tylenol Jr. Meltaways] 640 mg PO Q4H PRN #0 tab.dis 12/13/16 [Rx] Scopolamine [Transderm-Scop] 1.5 mg TOP Q3D PRN #3 patch 02/19/17 [Rx] Escitalopram Oxalate 10 mg PO DAILY 04/28/17 [History] Cetirizine [ZyrTEC] 10 mg PO DAILY tablet 11/17/17 [Rx] Pantoprazole [ProTONIX Granules] 40 mg PO Q24H packet 11/17/17 [Rx] Prochlorperazine [Compazine] 5 mg PO Q6H PRN tablet 11/17/17 [Rx] Ergocalciferol (Vitamin D2) [Vitamin D2] 50,000 unit PO DAILY 12/14/17 [History] Fluticasone Propionate [Flonase] 2 spray NASBOTH DAILY 12/14/17 [History] MV,Ca,Min/Iron Fum/FA/Vit K [Multi For Her Tablet] 1 tab PO DAILY 12/14/17 [ History] Omeprazole Magnesium [Prilosec] 10 ml PO DAILY 12/14/17 [History] hydrALAZINE [Apresoline] 10 mg PO Q8H 12/14/17 [History] Acetaminophen [Tylenol] 650 mg PO Q6H PRN tablet 01/04/18 [Rx] DULoxetine [Cymbalta] 20 mg PO DAILY #90 cap 01/04/18 [Rx] Docusate Sodium [Colace 50 MG/5 ML Liquid] 100 mg PO BID #100 ml 01/04/18 [Rx] Escitalopram [Lexapro] 10 mg PO DAILY tablet 01/04/18 [Rx] traMADol [Ultram] 50 mg PO Q4H PRN #30 tablet 01/04/18 [Rx] Past Medical History HEENT History: Reports: Sinusitis, Other (See Below) Other HEENT History: TMJ. soften Palate. polyps on larynx Cardiovascular History: Reports: Heart Murmur, Other (See Below) Other Cardiovascular History: Mitral Valve Regurgitation. Left heart faliure "stiff". Rivers in place Respiratory History: Reports: Asthma, Bronchitis, Recurrent, COPD, Intubation, Previous, Pneumonia, Recurrent, Pneumothorax, Sleep Apnea, SOB, Other (See Below ) Other Respiratory History: polyp on larynx; intubated x2 after "quit breathing" . 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: Reports: Polycystic Ovaries, Musculoskeletal History: Reports: Back Pain, Chronic, Fracture, Fibromyalgia, Other (See Below) Other Musculoskeletal History: knee/ankle pain bilateral Neurological History: Reports: Concussion, Headaches, Chronic, Migraines, Seizure, Vertigo Psychiatric History: Reports: Anxiety, Depression, Eating Disorders, Mood Swings , Panic Attack Endocrine/Metabolic History: Reports: Obesity/BMI 30+, Vitamin D Deficiency, Other (See Below) Other Endocrine/Metabolic History: prediabetic/adrenal gland deficiency Hematologic History: Reports: Anemia, B12 Deficiency, Folic Acid Immunologic History: Reports: Other (See Below) Other Immunologic History: due to steriod use for medical reasons, "they" feel her immune system is compromised Oncologic (Cancer) History: Reports: None Dermatologic History: Reports: Cellulitis, Other (See Below) Other Dermatologic History: biopsy of face for moles - Infectious Disease History Infectious Disease History: Reports: Chicken Pox, Shingles Other Infectious Disease History: Viral meningitis - Past Surgical History Head Surgeries/Procedures: Reports: None HEENT Surgical History: Reports: LASIK, Oral Surgery Cardiovascular Surgical History: Reports: Other (See Below) Other Cardiovascular Surgeries/Procedures: angiogram Respiratory Surgical History: Reports: None GI Surgical History: Reports: Cholecystectomy, EGD, Esophageal Dilatation, Hernia Repair/Other, Nigel Fundoplication, Other (See Below) Other GI Surgeries/Procedures: full gastroectomy. feeding tube Female Surgical History: Reports: Section, Tubal Ligation Endocrine Surgical History: Reports: None Neurological Surgical History: Reports: None Musculoskeletal Surgical History: Reports: None Dermatological Surgical History: Reports: Skin Biopsy Social & Family History - Family History Family Medical History: Noncontributory Cardiac: Reports: Pacemaker Respiratory: Reports: Asthma, COPD, Other (See Below) Other Respiratory Family Hisory: bronchitis GI: Reports: Irritable Bowel Syndrome OBGYN: Reports: Musculoskeletal: Reports: Arthritis Neurological: Reports: Cerebral Aneurysms Psychiatric: Reports: Anxiety, Depression Endocrine/Metabolic: Reports: Diabetes, type II, Hypothyroidism, Obesity/MBI 30+ , Vitamin D Deficiency Hematologic: Reports: B12 Deficiency Immunologic: Reports: None Oncologic: Reports: Brain, Lung, Skin - Tobacco Use Smoking Status *Q: Never Smoker Second Hand Smoke Exposure: No - Caffeine Use Caffeine Use: Reports: None Other Caffeine Use: 2 cups coffee per day and 1-2 sodas Caffeine Use Comment: 2-3 cups daily - Alcohol Use Days Per Week of Alcohol Use: 0 - Recreational Drug Use Recreational Drug Use: No - Living Situation & Occupation Living situation: Reports: , with Family Occupation: Employed H&P Review of Systems - Review of Systems: Review Of Systems: See Below Free Text/Narrative: Developed a fever at home that resolved after Triple Lumen was removed. Culture was positive for yeast. General: Reports: Fever, Weakness, Fatigue HEENT: Reports: No Symptoms Pulmonary: Reports: No Symptoms Cardiovascular: Reports: No Symptoms Gastrointestinal: Reports: Abdominal Pain (03/03 incisional ) Genitourinary: Reports: No Symptoms Musculoskeletal: Reports: No Symptoms Skin: Reports: Other (faint pink mottling of skin on anterior chest ) Psychiatric: Reports: Depression, Mood Lability, Anxiety Neurological: Reports: No Symptoms Hematologic/Lymphatic: Reports: Anemia Immunologic: Reports: No Symptoms Exam - Exam Exam: See Below - Vital Signs Vital Signs: Last Vital Signs Temp 100.9 F H 01/09/18 07:00 Pulse 88 01/09/18 07:22 Resp 16 01/09/18 07:00 BP 142/79 H 01/09/18 07:00 Pulse Ox 93 L 01/09/18 07:09 Weight: 193 lb 6.4 oz - Exam Quality Assessment: DVT Prophylaxis General: Alert, Oriented HEENT: PERRLA, Conjunctiva Clear Neck: Supple, Trachea Midline Lungs: Clear to Auscultation, Normal Respiratory Effort Cardiovascular: Regular Rate, Regular Rhythm GI/Abdominal Exam: Soft, Non-Tender, Other (J Tube intact ) (Female) Exam: Deferred Rectal (Female) Exam: Deferred Back Exam: Normal Inspection, Full Range of Motion Extremities: Normal Inspection, Normal Range of Motion, No Pedal Edema Skin: Warm, Dry, Intact, Rash (rash pink anterior chest. ), Other (color pale.) Neurological: Cranial Nerves Intact, Reflexes Equal Bilateral Neuro Extensive - Mental Status: Alert, Oriented x3, Normal Mood/Affect Neuro Extensive - Motor, Sensory, Reflexes: CN II-XII Intact Psychiatric: Labile Mood, Depressed - Patient Data Lab Results Last 24 hrs: Laboratory Results - last 24 hr 01/09/18 01/09/18 Range/Units 04:00 06:02 WBC 1.9 L (4.5-11.0) K/uL RBC 3.39 (3.30-5.50) M/uL Hgb 10.5 L (12.0-15.0) g/dL Hct 29.9 L (36.0-48.0) % MCV 88 (80-98) fL MCH 31 (27-31) pg MCHC 35 (32-36) % Plt Count 287 (150-400) K/uL Sodium 137 L (140-148) mmol/L Potassium 3.6 (3.6-5.2) mmol/L Chloride 102 (100-108) mmol/L Carbon Dioxide 25 (21-32) mmol/L Anion Gap 13.6 (5.0-14.0) mmol/L BUN 10 (7-18) mg/dL Creatinine 0.5 L (0.6-1.0) mg/dL Est Cr Clr Drug Dosing 133.02 mL/min Estimated GFR (MDRD) > 60 (>60) Glucose 97 (74-106) mg/dL Calcium 8.1 L (8.5-10.1) mg/dL Phosphorus 4.1 (2.5-4.9) mg/dL Magnesium 1.7 L (1.8-2.4) mg/dL Total Bilirubin 0.3 (0.2-1.0) mg/dL AST 24 (15-37) U/L ALT 45 (12-78) U/L Alkaline Phosphatase 96 (46-116) U/L Total Protein 6.5 (6.4-8.2) g/dL Albumin 2.5 L (3.4-5.0) g/dL Globulin 4.0 H (2.3-3.5) g/dL Albumin/Globulin Ratio 0.6 L (1.2-2.2) Result Diagrams: 01/09/18 04:00 01/09/18 06:02 Ash Results Last 24 hrs: Microbiology 01/08/18 00:35 Aerobic Blood Culture - Preliminary Blood - Central Line Anaerobic Blood Culture - Preliminary 01/08/18 00:25 Aerobic Blood Culture - Preliminary Blood - Arm, Left NO GROWTH AFTER 1 DAY Anaerobic Blood Culture - Preliminary NO GROWTH AFTER 1 DAY - Problem List (1) Pleural effusion SNOMED Code(s): 41297908 ICD Code: J90 - PLEURAL EFFUSION, NOT ELSEWHERE CLASSIFIED Status: Acute Current Visit: Yes (2) Status post insertion of percutaneous endoscopic gastrostomy (PEG) tube SNOMED Code(s): 331134567 ICD Code: Z93.1 - GASTROSTOMY STATUS Status: Acute Current Visit: No (3) Abdominal pain SNOMED Code(s): 57051072 ICD Code: R10.9 - UNSPECIFIED ABDOMINAL PAIN Status: Acute Current Visit : Yes Qualifiers: Abdominal location: upper abdomen, unspecified Qualified Code(s): R10.10 - Upper abdominal pain, unspecified (4) Fever and chills SNOMED Code(s): 601074833 ICD Code: R50.9 - FEVER, UNSPECIFIED Status: Acute Current Visit: Yes (5) Asthma SNOMED Code(s): 331039961 ICD Code: J45.909 - UNSPECIFIED ASTHMA, UNCOMPLICATED Status: Chronic Current Visit: No (6) Reflux ICD Code: K21.9 - GASTRO-ESOPHAGEAL REFLUX DISEASE WITHOUT ESOPHAGITIS Status : Chronic Current Visit: No Problem List Initiated/Reviewed/Updated: Yes Orders Last 24hrs: Active Orders 24 hr Category Date Time Status Dietary Supplements [RC] QIDACANDBED Care 01/08/18 18:16 Active May Shower [RC] ASDIRECTED Care 01/09/18 07:40 Active Notify Provider Consults [RC] ASDIRECTED Care 01/09/18 07:40 Active RT Aerosol Therapy [RC] ASDIRECTED Care 01/08/18 15:51 Active Consult to Physician [CONS] Routine Cons 01/09/18 07:39 Ordered PT Evaluation and Treatment [CONS] Routine Cons 01/08/18 18:29 Active Regular Diet [DIET] Diet 01/09/18 Breakfast Active Brain w wo Cont [MR] Routine Exams 01/09/18 08:00 Ordered US Guidance Thoracentesis NC [US] Routine Exams 01/09/18 07:00 Taken CULTURE BLOOD [BC] Routine Lab 01/08/18 12:21 Received CULTURE BLOOD [BC] Routine Lab 01/08/18 12:22 Received VANCOMYCIN TROUGH [CHEM] Timed Lab 01/10/18 08:30 Ordered Acetaminophen [Tylenol JrMorro Meltawaystan] Med 04/17/18 18:23 Active 640 mg PO Q4H PRN Albuterol/Ipratropium [DuoNeb 3.0-0.5 MG/3 ML] Med 01/08/18 15:51 Active 3 ml NEB QIDRT Ampicillin/Sulbactam Na [Unasyn] 3 gm Med 01/08/18 12:00 Active Sodium Chloride 0.9% [Normal Saline] 100 ml IV Q6H ClonazePAM [KlonoPIN] Med 01/08/18 21:00 Active 1 mg PO BEDTIME Cyanocobalamin (Vitamin B12) [Vitamin B12] Med 01/08/18 18:45 Active 500 mcg PO DAILY DULoxetine [Cymbalta] Med 01/08/18 18:30 Active 20 mg PO DAILY Dextrose 5%-Lactated Ringers 1,000 ml Med 01/08/18 18:15 Active IV ASDIRECTED Docusate Sodium [Colace 50 MG/5 ML Liquid] Med 01/08/18 21:00 Active 100 mg PO BID Escitalopram [Lexapro] Med 01/09/18 09:00 Active 10 mg PO DAILY Fluconazole/Normal Saline [Diflucan in NS 400 MG/200 ML Med 01/08/18 14:00 Active ] 400 mg Premix Bag 1 bag IV Q24H Fluticasone Propionate [Flonase] Med 01/08/18 18:30 Active 0 gm NASBOTH DAILY Heparin Sodium [Heparin Lock Flush 100 Units/ML] Med 01/08/18 08:33 Active 500 units FLUSH ASDIRECTED PRN Iohexol [Omnipaque-300] Med 01/08/18 08:15 Active 50 ml PO .ASDIRECTED LORazepam [Ativan] Med 01/08/18 18:29 Active 0.5 mg IVPUSH Q4H PRN Lactobacillus Rhamnosus GG [Culturelle] Med 01/09/18 09:00 Active 1 cap PO DAILY Levalbuterol HCl [Xopenex] Med 01/08/18 18:23 Active 1.25 mg NEB Q6H PRN Mometasone/Formoterol [Dulera 200-5 MCG] Med 01/09/18 21:00 Active 0 puff IH BIDRT Montelukast [Singulair] Med 01/08/18 18:30 Active 10 mg PO DAILY Pantoprazole [ProTONIX Granules] Med 01/08/18 18:30 Active 40 mg PO Q24H Vancomycin Med 01/08/18 20:00 Active See Dose Instructions IV .PHARMACY TO DOSE Vancomycin 1.25 gm Med 01/08/18 21:00 Active Sodium Chloride 0.9% [Normal Saline] 250 ml IV Q12H hydrALAZINE [Apresoline] Med 01/09/18 10:00 Active 10 mg PO Q8H traMADol [Ultram] Med 01/08/18 18:23 Active 50 mg PO Q4H PRN Medication Orders Acetaminophen (Tylenol Jr. Meltaways) 640 mg PO Q4H PRN PRN Reason: Pain Last Admin: 01/08/18 22:40 Dose: 640 mg Albuterol/Ipratropium (Duoneb 3.0-0.5 Mg/3 Ml) 3 ml NEB QIDRT [facility] Last Admin: 01/09/18 07:21 Dose: 3 ml Admin: 01/08/18 20:17 Dose: Not Given Admin: 01/08/18 16:09 Dose: 3 ml Clonazepam (Klonopin) 1 mg PO BEDTIME [facility] Last Admin: 01/08/18 20:14 Dose: Cyanocobalamin (Vitamin B12) 500 mcg PO DAILY [facility] Last Admin: 01/08/18 20:12 Dose: Docusate Sodium (Colace 50 Mg/5 Ml Liquid) 100 mg PO BID [facility] Last Admin: 01/08/18 20:13 Dose: Duloxetine HCl (Cymbalta) 20 mg PO DAILY [facility] Last Admin: 01/08/18 20:11 Dose: Escitalopram Oxalate (Lexapro) 10 mg PO DAILY [facility] Fluticasone Propionate (Flonase) 0 gm NASBOTH DAILY [facility] Last Admin: 01/08/18 20:11 Dose: Not Given Heparin Sodium (Porcine) (Heparin Lock Flush 100 Units/Ml) 500 units FLUSH ASDIRECTED PRN PRN Reason: IV Use Hydralazine HCl (Apresoline) 10 mg PO Q8H [facility] Hydromorphone HCl (Dilaudid [employer] Platform Supervisor 15 Mg In Ns 30 Ml) 0 mg IV ASDIRECTED PRN; Protocol PRN Reason: [employer] [employer] PAIN [employer] Last Admin: 01/08/18 02:48 Dose: 15 mg Ampicillin Sodium/Sulbactam (Sodium 3 gm/ Sodium Chloride) 100 mls @ 200 mls/ hr IV Q6H [facility] Last Admin: 01/09/18 04:59 Dose: 200 mls/hr Admin: 01/09/18 01:17 Dose: 200 mls/hr Admin: 01/08/18 18:17 Dose: 200 mls/hr Admin: 01/08/18 12:55 Dose: 200 mls/hr Fluconazole/Sodium Chloride (400 mg/ Premix) 200 mls @ 100 mls/hr IV Q24H [facility] Last Admin: 01/08/18 15:52 Dose: 100 mls/hr Dextrose/Lactated Ringer's (Dextrose 5%-Lactated Ringers) 1,000 mls @ 100 mls/ hr IV ASDIRECTED [facility] Last Admin: 01/08/18 23:42 Dose: 100 mls/hr Vancomycin HCl 1.25 gm/ Sodium (Chloride) 250 mls @ 166.667 mls/hr IV Q12H [facility] Last Admin: 01/08/18 23:04 Dose: 166.667 mls/hr Iohexol (Omnipaque-300) 50 ml PO .ASDIRECTED [facility] Stop: 01/09/18 10:00 Lactobacillus Rhamnosus (Culturelle) 1 cap PO DAILY [facility] Levalbuterol HCl (Xopenex) 1.25 mg NEB Q6H PRN PRN Reason: Wheezing Lorazepam (Ativan) 0.5 mg IVPUSH Q4H PRN PRN Reason: Anxiety Last Admin: 01/09/18 08:10 Dose: 0.5 mg Admin: 01/08/18 23:19 Dose: 0.5 mg Admin: 01/08/18 19:31 Dose: 0.5 mg Mometasone Furoate/Formoterol Fumar (Dulera 200-5 Mcg) 0 puff IH BIDRT [facility] Montelukast Sodium (Singulair) 10 mg PO DAILY [facility] Last Admin: 01/08/18 20:12 Dose: Naloxone HCl (Narcan) 0.1 mg IV ASDIRECTED PRN PRN Reason: decreased respiratory rate Pantoprazole Sodium (Protonix Granules) 40 mg PO Q24H [facility] Last Admin: 01/08/18 20:11 Dose: Tramadol HCl (Ultram) 50 mg PO Q4H PRN PRN Reason: Pain Vancomycin HCl (Vancomycin) 0 gm IV .PHARMACY TO DOSE ALEX
[2018-01-09] MEDS: Docusate Sodium Liquid 100 MG/10 ML UD Cup PO SCH ×2 (09:17→20:33)
[2018-01-09] MEDS: Fluticasone Propionate Nasal Spray 16 GM Bottle NASBOTH SCH (09:18)
[2018-01-09] MEDS: Acetaminophen 160 MG Tab,Disintegrating PO PRN ×3 (09:24→20:30)
[2018-01-09] MEDS: DULoxetine 20 MG Cap PO SCH (10:29)
[2018-01-09] MEDS: Escitalopram 10 MG Tab PO SCH (10:30)
[2018-01-09] MEDS: Lactobacillus Rhamnosus GG (Probiotic) Cap PO SCH (11:09)
[2018-01-09] MEDS ORDERED: Gadoteridol 279.3 MG/ML 15 ML SDV IV SCH (13:00)
[2018-01-09] MEDS: Cyanocobalamin (Vitamin B12) 1,000 MCG Tab PO SCH (13:39)
--- NOTE | 2018-01-09 13:54 | MR ---
Brain w wo Cont HISTORY: Visual defect COMPARISON: None FINDINGS: Diffusion images demonstrate no findings to suggest acute ischemia. The FLAIR sequences dem onstrate no focal high signal abnormalities. The posterior fossa and brainstem appear normal. There i s no acute hemorrhage, mass or mass effect. No abnormal extra-axial fluid collections. Optic nerves a ppear symmetric with no abnormal areas of enhancement. The optic chiasm appears unremarkable. The sin uses and mastoid air cells appear clear. Impression: Normal MRI of the brain and orbits without and with IV contrast.
[2018-01-09] MEDS: Montelukast 10 MG Tab PO SCH (14:46)
[2018-01-09] MEDS: Fluconazole/Normal Saline 400 MG in Premix Bag 1 BAG IV SCH (14:47)
--- NOTE | 2018-01-09 16:28 | PCM.CONSN ---
- General Info Date of Service: 01/09/18 Subjective Update: This patient has been stable since admission and overnight. She did have more mild temperature elevation today white blood cell count remains low. Currently denies abdominal pain or significant shortness of breath. Vital signs have remained stable. - Review of Systems General: Reports: Fever, Weakness. Denies: Chills Pulmonary: Reports: No Symptoms Cardiovascular: Reports: No Symptoms Gastrointestinal: Reports: No Symptoms Psychiatric: Reports: Depression, Anxiety - Patient Data Vitals - Most Recent: Last Vital Signs Temp 98.5 F 01/09/18 15:00 Pulse 96 01/09/18 15:00 Resp 16 01/09/18 15:00 BP 125/73 01/09/18 15:00 Pulse Ox 97 01/09/18 15:00 Weight - Most Recent: 193 lb 11.2 oz I&O - Last 24 Hours: Intake & Output 01/09/18 01/09/18 01/09/18 06:59 14:59 22:59 Intake Total 1210 730 Output Total 175 Balance 1210 555 Lab Results Last 24 Hours: Laboratory Results - last 24 hr 01/09/18 01/09/18 Range/Units 04:00 06:02 WBC 1.9 L (4.5-11.0) K/uL RBC 3.39 (3.30-5.50) M/uL Hgb 10.5 L (12.0-15.0) g/dL Hct 29.9 L (36.0-48.0) % MCV 88 (80-98) fL MCH 31 (27-31) pg MCHC 35 (32-36) % Plt Count 287 (150-400) K/uL Sodium 137 L (140-148) mmol/L Potassium 3.6 (3.6-5.2) mmol/L Chloride 102 (100-108) mmol/L Carbon Dioxide 25 (21-32) mmol/L Anion Gap 13.6 (5.0-14.0) mmol/L BUN 10 (7-18) mg/dL Creatinine 0.5 L (0.6-1.0) mg/dL Est Cr Clr Drug Dosing 133.02 mL/min Estimated GFR (MDRD) > 60 (>60) Glucose 97 (74-106) mg/dL Calcium 8.1 L (8.5-10.1) mg/dL Phosphorus 4.1 (2.5-4.9) mg/dL Magnesium 1.7 L (1.8-2.4) mg/dL Total Bilirubin 0.3 (0.2-1.0) mg/dL AST 24 (15-37) U/L ALT 45 (12-78) U/L Alkaline Phosphatase 96 (46-116) U/L Total Protein 6.5 (6.4-8.2) g/dL Albumin 2.5 L (3.4-5.0) g/dL Globulin 4.0 H (2.3-3.5) g/dL Albumin/Globulin Ratio 0.6 L (1.2-2.2) Ash Results Last 24 Hours: Microbiology 01/09/18 13:40 ALYSSA Preparation - Final Other - Pleural Cavity, Right 01/09/18 13:40 Gram Stain - Final Thoracentesis Fluid - Right 01/08/18 12:22 Aerobic Blood Culture - Preliminary Blood - Central Line NO GROWTH AFTER 1 DAY Anaerobic Blood Culture - Preliminary NO GROWTH AFTER 1 DAY 01/08/18 12:21 Aerobic Blood Culture - Preliminary Blood - Central Line NO GROWTH AFTER 1 DAY Anaerobic Blood Culture - Preliminary NO GROWTH AFTER 1 DAY 01/08/18 00:35 Aerobic Blood Culture - Preliminary Blood - Central Line Anaerobic Blood Culture - Preliminary 01/08/18 00:25 Aerobic Blood Culture - Preliminary Blood - Arm, Left NO GROWTH AFTER 1 DAY Anaerobic Blood Culture - Preliminary NO GROWTH AFTER 1 DAY Med Orders - Current: Current Medications Acetaminophen (Tylenol Jr. Meltaways) 640 mg PO Q4H PRN PRN Reason: Pain Last Admin: 01/09/18 09:24 Dose: 640 mg Albuterol/Ipratropium (Duoneb 3.0-0.5 Mg/3 Ml) 3 ml NEB QIDRT [facility] Last Admin: 01/09/18 14:51 Dose: Not Given Clonazepam (Klonopin) 1 mg PO BEDTIME [facility] Last Admin: 01/08/18 20:14 Dose: Not Given Cyanocobalamin (Vitamin B12) 500 mcg PO DAILY [facility] Last Admin: 01/09/18 13:39 Dose: Not Given Docusate Sodium (Colace 50 Mg/5 Ml Liquid) 100 mg PO BID [facility] Last Admin: 01/09/18 09:17 Dose: Not Given Duloxetine HCl (Cymbalta) 20 mg PO DAILY [facility] Last Admin: 01/09/18 10:29 Dose: Not Given Escitalopram Oxalate (Lexapro) 10 mg PO DAILY [facility] Last Admin: 01/09/18 10:30 Dose: 10 mg Fluticasone Propionate (Flonase) 0 gm NASBOTH DAILY [facility] Last Admin: 01/09/18 09:18 Dose: Not Given Heparin Sodium (Porcine) (Heparin Lock Flush 100 Units/Ml) 500 units FLUSH ASDIRECTED PRN PRN Reason: IV Use Hydralazine HCl (Apresoline) 10 mg PO Q8H [facility] Last Admin: 01/09/18 09:21 Dose: 10 mg Hydromorphone HCl (Dilaudid Silver Steward 15 Mg In Ns 30 Ml) 0 mg IV ASDIRECTED PRN; Protocol PRN Reason: [employer] PAIN CONTROL Last Admin: 01/08/18 02:48 Dose: 15 mg Ampicillin Sodium/Sulbactam (Sodium 3 gm/ Sodium Chloride) 100 mls @ 200 mls/ hr IV Q6H [facility] Last Admin: 01/09/18 13:11 Dose: 200 mls/hr Fluconazole/Sodium Chloride (400 mg/ Premix) 200 mls @ 100 mls/hr IV Q24H [facility] Last Admin: 01/09/18 14:47 Dose: 100 mls/hr Dextrose/Lactated Ringer's (Dextrose 5%-Lactated Ringers) 1,000 mls @ 100 mls/ hr IV ASDIRECTED [facility] Last Admin: 01/08/18 23:42 Dose: 100 mls/hr Vancomycin HCl 1.25 gm/ Sodium (Chloride) 250 mls @ 166.667 mls/hr IV Q12H [facility] Last Admin: 01/09/18 08:54 Dose: 166.667 mls/hr Lactobacillus Rhamnosus (Culturelle) 1 cap PO DAILY [facility] Last Admin: 01/09/18 11:09 Dose: 1 cap Levalbuterol HCl (Xopenex) 1.25 mg NEB Q6H PRN PRN Reason: Wheezing Lorazepam (Ativan) 0.5 mg IVPUSH Q4H PRN PRN Reason: Anxiety Last Admin: 01/09/18 13:44 Dose: 0.5 mg Mometasone Furoate/Formoterol Fumar (Dulera 200-5 Mcg) 0 puff IH BIDRT [facility] Montelukast Sodium (Singulair) 10 mg PO DAILY [facility] Last Admin: 01/09/18 14:46 Dose: 10 mg Naloxone HCl (Narcan) 0.1 mg IV ASDIRECTED PRN PRN Reason: decreased respiratory rate Pantoprazole Sodium (Protonix Granules) 40 mg PO Q24H [facility] Last Admin: 01/08/18 20:11 Dose: Not Given Tramadol HCl (Ultram) 50 mg PO Q4H PRN PRN Reason: Pain Discontinued Medications Escitalopram Oxalate (Lexapro) 10 mg PO DAILY [facility] Last Admin: 01/08/18 20:11 Dose: Not Given Gadoteridol (Prohance) 15 ml IV .A DIRECTED [facility] Last Admin: 01/09/18 12:59 Dose: 15 ml Heparin Sodium (Porcine) (Heparin Lock Flush 100 Units/Ml) Confirm Administered Dose 500 units .ROUTE .2080 Media-MED ONE Stop: 01/08/18 00:38 Last Admin: 01/08/18 02:42 Dose: Not Given Hydralazine HCl (Apresoline) 10 mg PO Q8H [facility] Last Admin: 01/09/18 02:31 Dose: Not Given Dextrose/Lactated Ringer's (Dextrose 5%-Lactated Ringers) 1,000 mls @ 200 mls/ hr IV ASDIRECTED [facility] Last Admin: 01/08/18 02:37 Dose: 200 mls/hr Meropenem 500 mg/ Sodium (Chloride) 50 mls @ 100 mls/hr IV Q6H [facility] Last Admin: 01/08/18 09:06 Dose: 100 mls/hr Dextrose/Lactated Ringer's (Dextrose 5%-Lactated Ringers) 1,000 mls @ 50 mls/ hr IV ASDIRECTED [facility] Last Admin: 01/08/18 09:06 Dose: 50 mls/hr Sodium Chloride (Normal Saline) 100 mls @ 3 mls/sec IV ASDIRECTED [facility] Stop: 01/08/18 09:00 Last Admin: 01/08/18 10:10 Dose: 3 mls/sec Multivitamins/Minerals 10 ml/Chromium/Copper/Manganese/Seleni/Zn 1 ml/ Amino Ac/ Electrol/Dextrose/Calcium 1,011 mls @ 83 mls/hr IV .BY DURATION [facility] Last Admin: 01/08/18 12:54 Dose: 83 mls/hr Amino Ac/Electrol/Dextrose/Calcium (Clinimix E 02/05) 1,000 mls @ 83 mls/hr IV .BY DURATION [facility] Linezolid 600 mg/ Premix 300 mls @ 300 mls/hr IV Q12H [facility] Last Admin: 01/08/18 20:18 Dose: Not Given Acetaminophen 1,000 mg/ Premix 100 mls @ 400 mls/hr IV NOW ONE Stop: 01/08/18 23:39 Last Admin: 01/08/18 23:55 Dose: 400 mls/hr Iohexol (Omnipaque-300) 50 ml PO .ASDIRECTED [facility] Stop: 01/09/18 10:00 Iohexol (Omnipaque) 10 ml PO ONETIME ONE Stop: 01/08/18 09:59 Last Admin: 01/08/18 10:14 Dose: 10 ml Iopamidol (Isovue-300 (61%)) 150 ml IV . DIRECTED [facility] Stop: 01/08/18 09:00 Last Admin: 01/08/18 10:10 Dose: 150 ml Lidocaine HCl (Xylocaine 1%) 0 ml INJECT ONETIME ONE Stop: 01/08/18 16:01 Last Admin: 01/08/18 17:30 Dose: Not Given Mometasone Furoate/Formoterol Fumar (Dulera 200-5 Mcg) 2 puff IH BIDRT [facility] Last Admin: 01/09/18 08:03 Dose: Not Given - Exam General: Alert, Oriented, Cooperative, Mild Distress Lungs: Clear to Auscultation, Normal Respiratory Effort Cardiovascular: Regular Rate, Regular Rhythm, No Murmurs GI/Abdominal Exam: Soft, Non-Tender, No Organomegaly, No Distention Extremities: Non-Tender, No Pedal Edema Skin: Warm, Dry Consult PN Assessment/Plan Procedures: Procedures AIRWAY INHALATION TREATMENT (12/19/16) ASSAY OF ACTH (05/25/16) ASSAY OF AMYLASE (12/01/17) ASSAY OF LACTIC ACID (07/10/16) ASSAY OF LIPASE (12/01/17) ASSAY OF MAGNESIUM (12/02/17) ASSAY OF NATRIURETIC PEPTIDE (11/24/15) ASSAY OF PHOSPHORUS (12/01/17) ASSAY OF SOMATOMEDIN (05/25/16) ASSAY OF TROPONIN QUANT (06/28/17) ASSAY THYROID STIM HORMONE (12/01/17) BEHAVRAL QUALIT ANALYS VOICE (05/24/16) BILIRUBIN DIRECT (06/22/17) BLOOD CULTURE FOR BACTERIA (10/19/16) BLOOD GASES ANY COMBINATION (07/10/16) C-REACTIVE PROTEIN (10/21/17) CHEST X-RAY 1 VIEW FRONTAL (07/10/16) CHEST X-RAY 2VW FRONTAL&LATL (06/28/17) CHORIONIC GONADOTROPIN ASSAY (06/29/13) COMPLETE CBC AUTOMATED (06/22/17) COMPLETE CBC W/AUTO DIFF WBC (12/02/17) COMPREHEN METABOLIC PANEL (12/01/17) CONTRST X-RAY UPPR GI TRACT (10/23/16) CT ABD & PELV W/CONTRAST (10/21/17) CT ABD & PELVIS W/O CONTRAST (12/01/17) CT ABDOMEN W/O DYE (11/24/16) CULTURE SCREEN ONLY (10/21/17) EGD BALLOON DIL ESOPH30 MM/> (12/07/16) EGD DILATE STRICTURE (02/08/17) ELECTROCARDIOGRAM TRACING (06/28/17) EMERGENCY DEPT VISIT (12/02/17) EMERGENCY DEPT VISIT (12/02/17) EMERGENCY DEPT VISIT (12/01/17) EMERGENCY DEPT VISIT (12/01/17) EMERGENCY DEPT VISIT (06/28/17) EMERGENCY DEPT VISIT (04/28/17) EMERGENCY DEPT VISIT (02/06/17) EMERGENCY DEPT VISIT (02/06/17) EMERGENCY DEPT VISIT (10/14/16) EMERGENCY DEPT VISIT (06/29/13) ESOPH EGD DILATION <30 MM (10/02/17) FIBRIN DEGRADATION QUANT (12/04/13) HOT OR COLD PACKS THERAPY (06/07/16) HYDRATE IV INFUSION ADD-ON (12/01/17) HYDRATION IV INFUSION INIT (02/06/17) INFLUENZA A/B AG IA (06/29/13) INFLUENZA ASSAY W/OPTIC (10/21/17) INSERT TUNNELED CV CATH (11/18/16) MANUAL THERAPY 1/> REGIONS (10/30/13) MEASURE BLOOD OXYGEN LEVEL (11/24/16) METABOLIC PANEL TOTAL CA (12/02/17) PROTHROMBIN TIME (06/28/17) PT EVALUATION (06/07/16) RBC SED RATE NONAUTOMATED (07/10/16) ROUTINE VENIPUNCTURE (12/02/17) SPEECH/HEARING THERAPY (06/07/16) STREP A AG IA (10/21/17) THER/DIAG CONCURRENT INF (12/19/16) THER/PROPH/DIAG INJ IV PUSH (12/01/17) THER/PROPH/DIAG INJ SC/IM (11/24/16) THER/PROPH/DIAG IV INF ADDON (12/02/17) THER/PROPH/DIAG IV INF INIT (12/02/17) THERAPEUTIC EXERCISES (06/07/16) TOTAL CORTISOL (05/25/16) TTE W/DOPPLER COMPLETE (01/05/14) TX/PRO/DX INJ NEW DRUG ADDON (12/01/17) TX/PRO/DX INJ SAME DRUG [employer] (12/19/16) TX/PROPH/DG ADDL SEQ IV INF (11/24/16) URINALYSIS AUTO W/SCOPE (12/02/17) URINE CULTURE/COLONY COUNT (10/21/17) WITHDRAWAL OF ARTERIAL BLOOD (07/10/16) X-RAY EXAM OF ABDOMEN (10/19/16) X-RAY EXAM OF LOWER LEG (02/03/17) X-RAY EXAM OF PELVIS (02/03/17) X-RAY EXAM SERIES ABDOMEN (10/21/17) X-RAY UPPER GI DELAY W/O KUB (07/17/17) Problem List Initiated/Reviewed/Updated: Yes My Orders Last 24 Hours: My Active Orders 01/08/18 18:16 Dietary Supplements [RC] QIDACANDBED 01/08/18 18:23 Acetaminophen [Tylenol Jr. Meltaways] 640 mg PO Q4H PRN Levalbuterol HCl [Xopenex] 1.25 mg NEB Q6H PRN traMADol [Ultram] 50 mg PO Q4H PRN 01/08/18 18:29 PT Evaluation and Treatment [CONS] Routine LORazepam [Ativan] 0.5 mg IVPUSH Q4H PRN 01/08/18 18:30 DULoxetine [Cymbalta] 20 mg PO DAILY Fluticasone Propionate [Flonase] 0 gm NASBOTH DAILY Montelukast [Singulair] 10 mg PO DAILY Pantoprazole [ProTONIX Granules] 40 mg PO Q24H 01/08/18 18:45 Cyanocobalamin (Vitamin B12) [Vitamin B12] 500 mcg PO DAILY 01/08/18 21:00 ClonazePAM [KlonoPIN] 1 mg PO BEDTIME Docusate Sodium [Colace 50 MG/5 ML Liquid] 100 mg PO BID Vancomycin 1.25 gm Sodium Chloride 0.9% [Normal Saline] 250 ml IV Q12H 01/09/18 09:00 Escitalopram [Lexapro] 10 mg PO DAILY Lactobacillus Rhamnosus GG [Culturelle] 1 cap PO DAILY 01/09/18 10:00 hydrALAZINE [Apresoline] 10 mg PO Q8H 01/09/18 21:00 Mometasone/Formoterol [Dulera 200-5 MCG] 0 puff IH BIDRT Plan: ASSESSMENT AND RECOMMENDATIONS FEVER-likely secondary to central line, this was removed yesterday afternoon by Dr. Grissom. Final culture results are pending at the present time. -Continue Unasyn, vancomycin, and fluconazole -We'll need to consider further evaluation for abdominal source of infection if fever does not resolve with current antibiotic therapy and removal of the central line -Hold on new central line placement until she has been afebrile with normal white blood cell count for 48 hours NEW VISUAL FIELD DEFECT RIGHT EYE-MRI of the brain with and without contrast is normal HYPERTENSION -Resume outpatient medical therapy
[2018-01-09] MEDS: Dextrose 5%-Lactated Ringers 1,000 ML IV SCH (17:21)
[2018-01-09] MEDS: Pantoprazole 40 MG Delayed-Release Granules 1 Packet PO SCH (17:30)
[2018-01-09] MEDS: ClonazePAM 1 MG Tab PO SCH (20:32)
[2018-01-10] MEDS: Ampicillin/Sulbactam Na 3 GM in Sodium Chloride 0.9% 100 ML IV SCH ×3 (00:17→12:08)
[2018-01-10] MEDS: hydrALAZINE 10 MG Tab PO SCH ×3 (05:16→17:59)
[2018-01-10] MEDS: Dextrose 5%-Lactated Ringers 1,000 ML IV SCH (07:02)
[2018-01-10] MEDS: Albuterol/Ipratropium 3.0-0.5 MG/3 ML Neb Soln NEB SCH ×4 (07:18→21:07)
[2018-01-10] MEDS: Formoterol/Mometasone 200-5 MCG 8.8 GM Inhaler IH SCH ×2 (07:20→21:07)
[2018-01-10] MEDS ORDERED: Magnesium Sulfate/Water 2 GM in Premix Bag 1 BAG IV SCH (08:00)
[2018-01-10] MEDS: Fluticasone Propionate Nasal Spray 16 GM Bottle NASBOTH SCH (08:06)
[2018-01-10] MEDS: Docusate Sodium Liquid 100 MG/10 ML UD Cup PO SCH (08:07)
[2018-01-10] MEDS: Lactobacillus Rhamnosus GG (Probiotic) Cap PO SCH (08:07)
[2018-01-10] MEDS: DULoxetine 20 MG Cap PO SCH ×2 (08:08→08:21)
[2018-01-10] MEDS: Cyanocobalamin (Vitamin B12) 1,000 MCG Tab PO SCH (08:08)
[2018-01-10] MEDS: Montelukast 10 MG Tab PO SCH (08:08)
[2018-01-10] MEDS: Escitalopram 10 MG Tab PO SCH (08:08)
[2018-01-10] MEDS: LORazepam 2 MG/ML SDV IVPUSH PRN ×2 (08:16→14:00)
--- NOTE | 2018-01-10 08:56 | CR ---
Chest 2V HISTORY: Post thoracentesis. COMPARISON: CT scan 01/08/2018. FINDINGS: Marked improvement of the right-sided pleural effusion. No pneumothorax. Minimal atelectasi s or infiltrate at the right lung base. No acute congestive change.
[2018-01-10] MEDS: Docusate Sodium 100 MG Cap PO SCH ×2 (09:24→21:07)
[2018-01-10] MEDS: Fluconazole/Normal Saline 200 MG in Premix Bag 1 BAG IV SCH (14:07)
[2018-01-10] MEDS: Magnesium Sulfate/Water 2 GM in Premix Bag 1 BAG IV SCH ×2 (16:07→23:28)
--- NOTE | 2018-01-10 17:19 | PCM.CONSN ---
- General Info Date of Service: 01/10/18 Subjective Update: Ms. Durán is been stable overnight, no significant temperature elevation over the past 24 hours and she has been hemodynamically stable. Blood cultures have grown out yeast from both blood as well as the central line. Suspected source would be from the central line. - Review of Systems General: Reports: Weakness. Denies: Fever, Chills Pulmonary: Reports: No Symptoms Cardiovascular: Reports: No Symptoms Gastrointestinal: Reports: Abdominal Pain, Decreased Appetite, Nausea, Vomiting. Denies: Difficulty Swallowing - Patient Data Vitals - Most Recent: Last Vital Signs Temp 98.7 F 01/10/18 16:01 Pulse 111 H 01/10/18 16:01 Resp 16 01/10/18 16:01 BP 132/76 01/10/18 16:01 Pulse Ox 97 01/10/18 16:01 Weight - Most Recent: 193 lb 11.2 oz I&O - Last 24 Hours: Intake & Output 01/10/18 01/10/18 01/10/18 06:59 14:59 22:59 Intake Total 950 500 350 Output Total 500 500 Balance 450 500 -150 Lab Results Last 24 Hours: Laboratory Results - last 24 hr 01/10/18 Range/Units 08:30 Vancomycin Trough 6.7 L (10.0-20.0) ug/mL Ash Results Last 24 Hours: Microbiology 01/08/18 00:25 Aerobic Blood Culture - Preliminary Blood - Arm, Left Anaerobic Blood Culture - Preliminary NO GROWTH AFTER 2 DAYS 01/08/18 12:22 Aerobic Blood Culture - Preliminary Blood - Central Line Anaerobic Blood Culture - Preliminary NO GROWTH AFTER 2 DAYS 01/08/18 12:21 Aerobic Blood Culture - Preliminary Blood - Central Line Anaerobic Blood Culture - Preliminary NO GROWTH AFTER 2 DAYS 01/08/18 00:35 Aerobic Blood Culture - Preliminary Blood - Central Line YEAST Anaerobic Blood Culture - Preliminary YEAST 01/09/18 13:40 ALYSSA Preparation - Final Other - Pleural Cavity, Right 01/09/18 13:40 Gram Stain - Final Thoracentesis Fluid - Right Med Orders - Current: Current Medications Acetaminophen (Tylenol Jr. Meltaways) 640 mg PO Q4H PRN PRN Reason: Pain Last Admin: 01/09/18 20:30 Dose: 640 mg Albuterol/Ipratropium (Duoneb 3.0-0.5 Mg/3 Ml) 3 ml NEB QIDRT [facility] Last Admin: 01/10/18 14:44 Dose: 3 ml Clonazepam (Klonopin) 1 mg PO BEDTIME [facility] Last Admin: 01/09/18 20:32 Dose: 1 mg Cyanocobalamin (Vitamin B12) 500 mcg PO DAILY [facility] Last Admin: 01/10/18 08:08 Dose: 500 mcg Docusate Sodium (Colace) 100 mg PO BID [facility] Last Admin: 01/10/18 09:24 Dose: 100 mg Escitalopram Oxalate (Lexapro) 10 mg PO DAILY [facility] Last Admin: 01/10/18 08:08 Dose: 10 mg Fluticasone Propionate (Flonase) 0 gm NASBOTH DAILY [facility] Last Admin: 01/10/18 08:06 Dose: 2 sprays Heparin Sodium (Porcine) (Heparin Lock Flush 100 Units/Ml) 500 units FLUSH ASDIRECTED PRN PRN Reason: IV Use Hydralazine HCl (Apresoline) 10 mg PO Q8H [facility] Last Admin: 01/10/18 11:02 Dose: 10 mg Fluconazole/Sodium Chloride (200 mg/ Premix) 100 mls @ 100 mls/hr IV Q24H [facility] Last Admin: 01/10/18 14:07 Dose: 100 mls/hr Magnesium Sulfate 2 gm/ Premix 50 mls @ 25 mls/hr IV Q6H [facility] Stop: 01/13/18 05:59 Last Admin: 01/10/18 16:07 Dose: 25 mls/hr Lactobacillus Rhamnosus (Culturelle) 1 cap PO DAILY [facility] Last Admin: 01/10/18 08:07 Dose: 1 cap Levalbuterol HCl (Xopenex) 1.25 mg NEB Q6H PRN PRN Reason: Wheezing Lorazepam (Ativan) 0.5 mg IVPUSH Q4H PRN PRN Reason: Anxiety Last Admin: 01/10/18 14:00 Dose: 0.5 mg Mometasone Furoate/Formoterol Fumar (Dulera 200-5 Mcg) 0 puff IH BIDRT [facility] Last Admin: 01/10/18 07:20 Dose: 2 inhalation Montelukast Sodium (Singulair) 10 mg PO DAILY [facility] Last Admin: 01/10/18 08:08 Dose: 10 mg Naloxone HCl (Narcan) 0.1 mg IV ASDIRECTED PRN PRN Reason: decreased respiratory rate Pantoprazole Sodium (Protonix Granules) 40 mg PO Q24H [facility] Last Admin: 01/09/18 17:30 Dose: 40 mg Tramadol HCl (Ultram) 50 mg PO Q4H PRN PRN Reason: Pain Discontinued Medications Docusate Sodium (Colace 50 Mg/5 Ml Liquid) 100 mg PO BID [facility] Last Admin: 01/10/18 08:07 Dose: Not Given Duloxetine HCl (Cymbalta) 20 mg PO DAILY [facility] Last Admin: 01/10/18 08:21 Dose: Not Given Escitalopram Oxalate (Lexapro) 10 mg PO DAILY [facility] Last Admin: 01/08/18 20:11 Dose: Not Given Gadoteridol (Prohance) 15 ml IV .A DIRECTED [facility] Last Admin: 01/09/18 12:59 Dose: 15 ml Heparin Sodium (Porcine) (Heparin Lock Flush 100 Units/Ml) Confirm Administered Dose 500 units .ROUTE .[facility] Stop: 01/08/18 00:38 Last Admin: 01/08/18 02:42 Dose: Not Given Hydralazine HCl (Apresoline) 10 mg PO Q8H [facility] Last Admin: 01/09/18 02:31 Dose: Not Given Hydromorphone HCl (Dilaudid Life Skills Worker 15 Mg In Ns 30 Ml) 0 mg IV ASDIRECTED PRN; Protocol 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 Last Admin: 01/08/18 02:48 Dose: 15 mg Dextrose/Lactated Ringer's (Dextrose 5%-Lactated Ringers) 1,000 mls @ 200 mls/ hr IV ASDIRECTED [facility] Last Admin: 01/08/18 02:37 Dose: 200 mls/hr Meropenem 500 mg/ Sodium (Chloride) 50 mls @ 100 mls/hr IV Q6H [facility] Last Admin: 01/08/18 09:06 Dose: 100 mls/hr Dextrose/Lactated Ringer's (Dextrose 5%-Lactated Ringers) 1,000 mls @ 50 mls/ hr IV ASDIRECTED [facility] Last Admin: 01/08/18 09:06 Dose: 50 mls/hr Sodium Chloride (Normal Saline) 100 mls @ 3 mls/sec IV ASDIRECTED [facility] Stop: 01/08/18 09:00 Last Admin: 01/08/18 10:10 Dose: 3 mls/sec Multivitamins/Minerals 10 ml/Chromium/Copper/Manganese/Seleni/Zn 1 ml/ Amino Ac/ Electrol/Dextrose/Calcium 1,011 mls @ 83 mls/hr IV .BY DURATION [facility] Last Admin: 01/08/18 12:54 Dose: 83 mls/hr Amino Ac/Electrol/Dextrose/Calcium (Clinimix E 5/15) 1,000 mls @ 83 mls/hr IV .BY DURATION [facility] Ampicillin Sodium/Sulbactam (Sodium 3 gm/ Sodium Chloride) 100 mls @ 200 mls/ hr IV Q6H [facility] Last Admin: 01/10/18 12:08 Dose: 200 mls/hr Fluconazole/Sodium Chloride (400 mg/ Premix) 200 mls @ 100 mls/hr IV Q24H [facility] Last Admin: 01/09/18 14:47 Dose: 100 mls/hr Dextrose/Lactated Ringer's (Dextrose 5%-Lactated Ringers) 1,000 mls @ 100 mls/ hr IV ASDIRECTED [facility] Last Admin: 01/10/18 07:02 Dose: 100 mls/hr Linezolid 600 mg/ Premix 300 mls @ 300 mls/hr IV Q12H [facility] Last Admin: 01/08/18 20:18 Dose: Not Given Vancomycin HCl 1.25 gm/ Sodium (Chloride) 250 mls @ 166.667 mls/hr IV Q12H [facility] Stop: 01/10/18 12:00 Last Admin: 01/10/18 09:25 Dose: 166.667 mls/hr Acetaminophen 1,000 mg/ Premix 100 mls @ 400 mls/hr IV NOW ONE Stop: 01/08/18 23:39 Last Admin: 01/08/18 23:55 Dose: 400 mls/hr Magnesium Sulfate 2 gm/ Premix 50 mls @ 25 mls/hr IV Q6H [facility] Stop: 01/10/18 10:30 Last Admin: 01/10/18 08:18 Dose: 25 mls/hr Vancomycin HCl 1.25 gm/ Sodium (Chloride) 250 mls @ 166.667 mls/hr IV Q8H [facility] Iohexol (Omnipaque-300) 50 ml PO .ASDIRECTED [facility] Stop: 01/09/18 10:00 Iohexol (Omnipaque) 10 ml PO ONETIME ONE Stop: 01/08/18 09:59 Last Admin: 01/08/18 10:14 Dose: 10 ml Iopamidol (Isovue-300 (61%)) 150 ml IV . DIRECTED [facility] Stop: 01/08/18 09:00 Last Admin: 01/08/18 10:10 Dose: 150 ml Lidocaine HCl (Xylocaine 1%) 0 ml INJECT ONETIME ONE Stop: 01/08/18 16:01 Last Admin: 01/08/18 17:30 Dose: Not Given Mometasone Furoate/Formoterol Fumar (Dulera 200-5 Mcg) 2 puff IH BIDRT [facility] Last Admin: 01/09/18 08:03 Dose: Not Given - Exam Quality Assessment: DVT Prophylaxis General: Alert, Oriented, Cooperative, No Acute Distress Lungs: Clear to Auscultation, Normal Respiratory Effort Cardiovascular: Regular Rate, Regular Rhythm, No Murmurs GI/Abdominal Exam: Soft, No Organomegaly, Tender. No: Distended, Guarding, Rigid, Rebound Extremities: Non-Tender, No Pedal Edema Skin: Warm, Dry, Intact Consult PN Assessment/Plan Procedures: Procedures AIRWAY INHALATION TREATMENT (12/19/16) ASSAY OF ACTH (05/25/16) ASSAY OF AMYLASE (12/01/17) ASSAY OF LACTIC ACID (07/10/16) ASSAY OF LIPASE (12/01/17) ASSAY OF MAGNESIUM (12/02/17) ASSAY OF NATRIURETIC PEPTIDE (11/24/15) ASSAY OF PHOSPHORUS (12/01/17) ASSAY OF SOMATOMEDIN (05/25/16) ASSAY OF TROPONIN QUANT (06/28/17) ASSAY THYROID STIM HORMONE (12/01/17) BEHAVRAL QUALIT ANALYS VOICE (05/24/16) BILIRUBIN DIRECT (06/22/17) BLOOD CULTURE FOR BACTERIA (10/19/16) BLOOD GASES ANY COMBINATION (07/10/16) C-REACTIVE PROTEIN (10/21/17) CHEST X-RAY 1 VIEW FRONTAL (07/10/16) CHEST X-RAY 2VW FRONTAL&LATL (06/28/17) CHORIONIC GONADOTROPIN ASSAY (06/29/13) COMPLETE CBC AUTOMATED (06/22/17) COMPLETE CBC W/AUTO DIFF WBC (12/02/17) COMPREHEN METABOLIC PANEL (12/01/17) CONTRST X-RAY UPPR GI TRACT (10/23/16) CT ABD & PELV W/CONTRAST (10/21/17) CT ABD & PELVIS W/O CONTRAST (12/01/17) CT ABDOMEN W/O DYE (11/24/16) CULTURE SCREEN ONLY (10/21/17) EGD BALLOON DIL ESOPH30 MM/> (12/07/16) EGD DILATE STRICTURE (02/08/17) ELECTROCARDIOGRAM TRACING (06/28/17) EMERGENCY DEPT VISIT (12/02/17) EMERGENCY DEPT VISIT (12/02/17) EMERGENCY DEPT VISIT (12/01/17) EMERGENCY DEPT VISIT (12/01/17) EMERGENCY DEPT VISIT (06/28/17) EMERGENCY DEPT VISIT (04/28/17) EMERGENCY DEPT VISIT (02/06/17) EMERGENCY DEPT VISIT (02/06/17) EMERGENCY DEPT VISIT (10/14/16) EMERGENCY DEPT VISIT (06/29/13) ESOPH EGD DILATION <30 MM (10/02/17) FIBRIN DEGRADATION QUANT (12/04/13) HOT OR COLD PACKS THERAPY (06/07/16) HYDRATE IV INFUSION ADD-ON (12/01/17) HYDRATION IV INFUSION INIT (02/06/17) INFLUENZA A/B AG IA (06/29/13) INFLUENZA ASSAY W/OPTIC (10/21/17) INSERT TUNNELED CV CATH (11/18/16) MANUAL THERAPY 1/> REGIONS (10/30/13) MEASURE BLOOD OXYGEN LEVEL (11/24/16) METABOLIC PANEL TOTAL CA (12/02/17) PROTHROMBIN TIME (06/28/17) PT EVALUATION (06/07/16) RBC SED RATE NONAUTOMATED (07/10/16) ROUTINE VENIPUNCTURE (12/02/17) SPEECH/HEARING THERAPY (06/07/16) STREP A AG IA (10/21/17) THER/DIAG CONCURRENT INF (12/19/16) THER/PROPH/DIAG INJ IV PUSH (12/01/17) THER/PROPH/DIAG INJ SC/IM (11/24/16) THER/PROPH/DIAG IV INF ADDON (12/02/17) THER/PROPH/DIAG IV INF INIT (12/02/17) THERAPEUTIC EXERCISES (06/07/16) TOTAL CORTISOL (05/25/16) TTE W/DOPPLER COMPLETE (01/05/14) TX/PRO/DX INJ NEW DRUG ADDON (12/01/17) TX/PRO/DX INJ SAME DRUG SQL REPORT DEVELOPER (12/19/16) TX/PROPH/DG ADDL SEQ IV INF (11/24/16) URINALYSIS AUTO W/SCOPE (12/02/17) URINE CULTURE/COLONY COUNT (10/21/17) WITHDRAWAL OF ARTERIAL BLOOD (07/10/16) X-RAY EXAM OF ABDOMEN (10/19/16) X-RAY EXAM OF LOWER LEG (02/03/17) X-RAY EXAM OF PELVIS (02/03/17) X-RAY EXAM SERIES ABDOMEN (10/21/17) X-RAY UPPER GI DELAY W/O KUB (07/17/17) Problem List Initiated/Reviewed/Updated: Yes My Orders Last 24 Hours: My Active Orders 01/09/18 21:00 Mometasone/Formoterol [Dulera 200-5 MCG] 0 puff IH BIDRT 01/10/18 14:00 Fluconazole/Normal Saline [Diflucan in NS 200 MG/100 ML] 200 mg Premix Bag 1 bag IV Q24H 01/10/18 17:10 Convert IV to Saline Lock [OM.PC] Routine Plan: ASSESSMENT AND RECOMMENDATIONS FEVER-likely secondary to central line, this was removed yesterday afternoon by Dr. Grissom. Blood cultures are growing out east -Continue fluconazole -Discontinue vancomycin and Unasyn -Hold on new central line placement until she has been afebrile with normal white blood cell count for 48 hours NEW VISUAL FIELD DEFECT RIGHT EYE-MRI of the brain with and without contrast is normal -Outpatient ophthalmology evaluation HYPERTENSION -Resume outpatient medical therapy
[2018-01-10] MEDS ORDERED: Calcium Carbonate 500 MG Tab.Chew PO PRN (17:31)
[2018-01-10] MEDS: Ondansetron 4 MG/2 ML SDV IVPUSH PRN (17:50)
[2018-01-10] MEDS: Scopolamine 1.5 MG Transdermal Patch TRDERM SCH (17:50)
[2018-01-10] MEDS: Pantoprazole 40 MG Delayed-Release Granules 1 Packet PO SCH (17:59)
--- NOTE | 2018-01-10 19:17 | PN ---
DATE OF SERVICE: 01/10/2018 SUBJECTIVE: Temp max 99.1. She has had no nausea. She is having bowel movements. Has been walking in the [place]. Oral intake was 550. REVIEW OF SYSTEMS: Remainder of review of systems is negative for any pertinent positives and negatives. OBJECTIVE: GENERAL: Shamika Durán is a 42-year-old female, alert, orientated. VITAL SIGNS: TPR is 98.7, 111, 16. Blood pressure 132/76. HEENT: Negative. NECK: Supple. HEART: Regular rate and rhythm. LUNGS: Clear. ABDOMEN: J-tube in place. Incisions look good. EXTREMITIES: Without peripheral edema. ASSESSMENT: 1. Pleural effusion. 2. Status post insertion of percutaneous endoscopic gastrostomy tube. 3. Abdominal pain. 4. Fever, chills. 5. Asthma. 6. Culture report of blood and central line revealed yeast. PLAN: Rx magnesium 2 g IV q.6 hours x72 hours and Colace liquid changed to pills, so she is getting 100 mg p.o. b.i.d. Good pulmonary toilet. Encouraged good oral intake. We will evaluate p.r.n. or in a.m. Shavon Siddiqi PA-C /[id number]
[2018-01-10] MEDS: ClonazePAM 1 MG Tab PO SCH (21:07)
[2018-01-10] MEDS: Sodium Chloride 0.9% 250 ML IV SCH (23:23)
[2018-01-11] MEDS: traMADol 50 MG Tab PO PRN ×3 (00:03→21:38)
[2018-01-11] MEDS: hydrALAZINE 10 MG Tab PO SCH ×3 (01:47→17:53)
[2018-01-11] MEDS: Magnesium Sulfate/Water 2 GM in Premix Bag 1 BAG IV SCH ×4 (03:21→21:43)
[2018-01-11] MEDS: Sodium Chloride 0.9% 250 ML IV SCH (07:15)
[2018-01-11] MEDS: Formoterol/Mometasone 200-5 MCG 8.8 GM Inhaler IH SCH ×2 (07:49→21:37)
[2018-01-11] MEDS: Albuterol/Ipratropium 3.0-0.5 MG/3 ML Neb Soln NEB SCH ×4 (07:49→21:25)
--- NOTE | 2018-01-11 09:39 | PN ---
DATE OF SERVICE: 01/11/2018 SUBJECTIVE: Shamika states that she has had no nausea and no emesis. Oral intake yesterday was 1,140. She has been up ambulating, reports taking 0.25 mg prior to taking her oral medication, has helped with the nausea. Dr. Darvin Palomino discontinued her SOIL TESTER, and she states that the pain has been controlled with Ultram. REVIEW OF SYSTEMS: HEENT: Denies any headache, dizziness. Has been afebrile. No chills or night sweats. CHEST: Negative. LUNGS: Without cough. No shortness of breath. ABDOMEN: Reports continual generalized abdominal pain, but better than before. Last bowel movement was 01/09/2018. EXTREMITIES: No joint pain. Reports minimal swelling. NEURO: Intact. PSYCHIATRIC: Reports some depression. Remainder of review of systems negative for any pertinent positives and negatives. OBJECTIVE: GENERAL: Shamika Durán is a 42-year-old female. She is alert and oriented. Color pale. VITAL SIGNS: TPR 98, 84, 18, blood pressure 111/63. HEENT: Negative. NECK: Supple. HEART: Regular rate and rhythm. LUNGS: Clear. ABDOMEN: Minimally tender. J-tube in place. EXTREMITIES: Without peripheral edema. NEURO: Intact. PSYCHIATRIC: Mood and affect appropriate. ASSESSMENT: Pleural effusion, status post insertion of percutaneous endoscopic jejunostomy tube, abdominal pain, resolution of fever and chills secondary to culture of blood and central line which revealed yeast. PLAN: 1. Schedule and have consent signed for placement of Rivers catheter on 01/12/2018, IV sedation. Jese Grissom MD, n.p.o. after midnight. 2. Levsin (Hyoscyamine) 0.125 mg to give before oral medications and p.r.n. every 4 hours. Good pulmonary toilet. 3. We will evaluate p.r.n. or in a.m. Shavon Siddiqi PA-C /[id number]
[2018-01-11] MEDS: Hyoscyamine 0.125 MG Tab.SL SL PRN ×3 (09:41→21:38)
[2018-01-11] MEDS: VERIFY SCOPOLAMINE PATCH TOP SCH (09:42)
[2018-01-11] MEDS: Fluticasone Propionate Nasal Spray 16 GM Bottle NASBOTH SCH (09:49)
[2018-01-11] MEDS: Cyanocobalamin (Vitamin B12) 1,000 MCG Tab PO SCH (10:14)
[2018-01-11] MEDS: Montelukast 10 MG Tab PO SCH (10:14)
[2018-01-11] MEDS: Docusate Sodium 100 MG Cap PO SCH ×2 (10:14→21:38)
[2018-01-11] MEDS: Escitalopram 10 MG Tab PO SCH (10:17)
[2018-01-11] MEDS: Lactobacillus Rhamnosus GG (Probiotic) Cap PO SCH (10:17)
[2018-01-11] MEDS: Fluconazole/Normal Saline 200 MG in Premix Bag 1 BAG IV SCH (14:28)
[2018-01-11] MEDS: Sodium Chloride 0.9% 1,000 ML IV SCH (17:54)
--- NOTE | 2018-01-11 17:56 | PCM.CONSN ---
- General Info Date of Service: 01/11/18 Subjective Update: Patient has been stable overnight, no recurrent fevers. Oral intake has improved significantly and with this caloric intake is improved. - Review of Systems General: Denies: Fever, Chills Pulmonary: Reports: No Symptoms Cardiovascular: Reports: No Symptoms Gastrointestinal: Reports: Abdominal Pain, Nausea. Denies: Constipation, Diarrhea, Difficulty Swallowing, Vomiting - Patient Data Vitals - Most Recent: Last Vital Signs Temp 98.2 F 01/11/18 17:49 Pulse 93 01/11/18 17:49 Resp 16 01/11/18 17:49 BP 122/66 01/11/18 17:49 Pulse Ox 92 L 01/11/18 17:49 Weight - Most Recent: 195 lb 12.8 oz I&O - Last 24 Hours: Intake & Output 01/11/18 01/11/18 01/11/18 06:59 14:59 22:59 Intake Total 847 870 600 Output Total 300 700 400 Balance 547 170 200 Ash Results Last 24 Hours: Microbiology 01/08/18 12:22 Aerobic Blood Culture - Preliminary Blood - Central Line Anaerobic Blood Culture - Preliminary NO GROWTH AFTER 3 DAYS 01/08/18 12:21 Aerobic Blood Culture - Final Blood - Central Line YEAST Anaerobic Blood Culture - Preliminary NO GROWTH AFTER 3 DAYS 01/08/18 00:35 Aerobic Blood Culture - Final Blood - Central Line YEAST Probable Micrococcus Species Anaerobic Blood Culture - Final YEAST 01/09/18 13:40 Gram Stain - Final Thoracentesis Fluid - Right Body Fluid Culture - Preliminary NO GROWTH AFTER 1 DAY 01/08/18 00:25 Aerobic Blood Culture - Preliminary Blood - Arm, Left Anaerobic Blood Culture - Preliminary NO GROWTH AFTER 3 DAYS Med Orders - Current: Current Medications Acetaminophen (Tylenol Jr. Meltaways) 640 mg PO Q4H PRN PRN Reason: Pain Last Admin: 01/09/18 20:30 Dose: 640 mg Albuterol/Ipratropium (Duoneb 3.0-0.5 Mg/3 Ml) 3 ml NEB QIDRT ALEX Last Admin: 01/11/18 14:38 Dose: 3 ml Calcium Carbonate/Glycine (Tums) 1,000 mg PO Q2H PRN PRN Reason: Indigestion Last Admin: 01/10/18 17:49 Dose: 1,000 mg Clonazepam (Klonopin) 1 mg PO BEDTIME ALEX Last Admin: 01/10/18 21:07 Dose: 1 mg Cyanocobalamin (Vitamin B12) 500 mcg PO DAILY [facility] Last Admin: 01/11/18 10:14 Dose: 500 mcg Docusate Sodium (Colace) 100 mg PO BID [facility] Last Admin: 01/11/18 10:14 Dose: 100 mg Escitalopram Oxalate (Lexapro) 10 mg PO DAILY [facility] Last Admin: 01/11/18 10:17 Dose: 10 mg Fluticasone Propionate (Flonase) 0 gm NASBOTH DAILY [facility] Last Admin: 01/11/18 09:49 Dose: 2 sprays Heparin Sodium (Porcine) (Heparin Lock Flush 100 Units/Ml) 500 units FLUSH ASDIRECTED PRN PRN Reason: IV Use Hydralazine HCl (Apresoline) 10 mg PO Q8H [facility] Last Admin: 01/11/18 10:14 Dose: 10 mg Hyoscyamine (Hyomax-Sl) 0.125 mg SL Q4H PRN PRN Reason: ABD PAIN Last Admin: 01/11/18 17:33 Dose: 0.125 mg Fluconazole/Sodium Chloride (200 mg/ Premix) 100 mls @ 100 mls/hr IV Q24H [facility] Last Admin: 01/11/18 14:28 Dose: 100 mls/hr Magnesium Sulfate 2 gm/ Premix 50 mls @ 25 mls/hr IV Q6H [facility] Stop: 01/13/18 05:59 Last Admin: 01/11/18 17:53 Dose: 25 mls/hr Sodium Chloride (Normal Saline) 1,000 mls @ 25 mls/hr IV ASDIRECTED [facility] Lactobacillus Rhamnosus (Culturelle) 1 cap PO DAILY [facility] Last Admin: 01/11/18 10:17 Dose: 1 cap Levalbuterol HCl (Xopenex) 1.25 mg NEB Q6H PRN PRN Reason: Wheezing Lorazepam (Ativan) 0.5 mg IVPUSH Q4H PRN PRN Reason: Anxiety Last Admin: 01/10/18 14:00 Dose: 0.5 mg Mometasone Furoate/Formoterol Fumar (Dulera 200-5 Mcg) 0 puff IH BIDRT [facility] Last Admin: 01/11/18 07:49 Dose: 2 inhalation Montelukast Sodium (Singulair) 10 mg PO DAILY [facility] Last Admin: 01/11/18 10:14 Dose: 10 mg Naloxone HCl (Narcan) 0.1 mg IV ASDIRECTED PRN PRN Reason: decreased respiratory rate Verify Scopolamine (Patch) 0 each TOP DAILY [facility] Last Admin: 01/11/18 09:42 Dose: Not Given Ondansetron HCl (Zofran) 4 mg IVPUSH Q4H PRN PRN Reason: Nausea/Vomiting Last Admin: 01/10/18 17:50 Dose: 4 mg Pantoprazole Sodium (Protonix Granules) 40 mg PO Q24H [facility] Last Admin: 01/10/18 17:59 Dose: 40 mg Scopolamine (Transderm-Scop) 1.5 mg TRDERM Q72H [facility] Last Admin: 01/10/18 17:50 Dose: 1.5 mg Tramadol HCl (Ultram) 50 mg PO Q4H PRN PRN Reason: Pain Last Admin: 01/11/18 14:34 Dose: 50 mg Discontinued Medications Docusate Sodium (Colace 50 Mg/5 Ml Liquid) 100 mg PO BID [facility] Last Admin: 01/10/18 08:07 Dose: Not Given Duloxetine HCl (Cymbalta) 20 mg PO DAILY [facility] Last Admin: 01/10/18 08:21 Dose: Not Given Escitalopram Oxalate (Lexapro) 10 mg PO DAILY [facility] Last Admin: 01/08/18 20:11 Dose: Not Given Gadoteridol (Prohance) 15 ml IV .A DIRECTED [facility] Last Admin: 01/09/18 12:59 Dose: 15 ml Heparin Sodium (Porcine) (Heparin Lock Flush 100 Units/Ml) Confirm Administered Dose 500 units .ROUTE .STK-MED ONE Stop: 01/08/18 00:38 Last Admin: 01/08/18 02:42 Dose: Not Given Hydralazine HCl (Apresoline) 10 mg PO Q8H [facility] Last Admin: 01/09/18 02:31 Dose: Not Given Hydromorphone HCl (Dilaudid Life Assurance Representative 15 Mg In Ns 30 Ml) 0 mg IV ASDIRECTED PRN; Protocol PRN Reason: [employer] PAIN [employer]OL Last Admin: 01/08/18 02:48 Dose: 15 mg Dextrose/Lactated Ringer's (Dextrose 5%-Lactated Ringers) 1,000 mls @ 200 mls/ hr IV ASDIRECTED [facility] Last Admin: 01/08/18 02:37 Dose: 200 mls/hr Meropenem 500 mg/ Sodium (Chloride) 50 mls @ 100 mls/hr IV Q6H [facility] Last Admin: 01/08/18 09:06 Dose: 100 mls/hr Dextrose/Lactated Ringer's (Dextrose 5%-Lactated Ringers) 1,000 mls @ 50 mls/ hr IV ASDIRECTED [facility] Last Admin: 01/08/18 09:06 Dose: 50 mls/hr Sodium Chloride (Normal Saline) 100 mls @ 3 mls/sec IV ASDIRECTED [facility] Stop: 01/08/18 09:00 Last Admin: 01/08/18 10:10 Dose: 3 mls/sec Multivitamins/Minerals 10 ml/Chromium/Copper/Manganese/Seleni/Zn 1 ml/ Amino Ac/ Electrol/Dextrose/Calcium 1,011 mls @ 83 mls/hr IV .BY DURATION [facility] Last Admin: 01/08/18 12:54 Dose: 83 mls/hr Amino Ac/Electrol/Dextrose/Calcium (Clinimix E 5/15) 1,000 mls @ 83 mls/hr IV .BY DURATION [facility] Ampicillin Sodium/Sulbactam (Sodium 3 gm/ Sodium Chloride) 100 mls @ 200 mls/ hr IV Q6H [facility] Last Admin: 01/10/18 12:08 Dose: 200 mls/hr Fluconazole/Sodium Chloride (400 mg/ Premix) 200 mls @ 100 mls/hr IV Q24H [facility] Last Admin: 01/09/18 14:47 Dose: 100 mls/hr Dextrose/Lactated Ringer's (Dextrose 5%-Lactated Ringers) 1,000 mls @ 100 mls/ hr IV ASDIRECTED [facility] Last Admin: 01/10/18 07:02 Dose: 100 mls/hr Linezolid 600 mg/ Premix 300 mls @ 300 mls/hr IV Q12H [facility] Last Admin: 01/08/18 20:18 Dose: Not Given Vancomycin HCl 1.25 gm/ Sodium (Chloride) 250 mls @ 166.667 mls/hr IV Q12H [facility] Stop: 01/10/18 12:00 Last Admin: 01/10/18 09:25 Dose: 166.667 mls/hr Acetaminophen 1,000 mg/ Premix 100 mls @ 400 mls/hr IV NOW ONE Stop: 01/08/18 23:39 Last Admin: 01/08/18 23:55 Dose: 400 mls/hr Magnesium Sulfate 2 gm/ Premix 50 mls @ 25 mls/hr IV Q6H [facility] Stop: 01/10/18 10:30 Last Admin: 01/10/18 08:18 Dose: 25 mls/hr Vancomycin HCl 1.25 gm/ Sodium (Chloride) 250 mls @ 166.667 mls/hr IV Q8H [facility] Sodium Chloride (Normal Saline) 250 mls @ 25 mls/hr IV ASDIRECTED [facility] Last Admin: 01/11/18 07:15 Dose: 25 mls/hr Iohexol (Omnipaque-300) 50 ml PO .ASDIRECTED [facility] Stop: 01/09/18 10:00 Iohexol (Omnipaque) 10 ml PO ONETIME ONE Stop: 01/08/18 09:59 Last Admin: 01/08/18 10:14 Dose: 10 ml Iopamidol (Isovue-300 (61%)) 150 ml IV . DIRECTED [facility] Stop: 01/08/18 09:00 Last Admin: 01/08/18 10:10 Dose: 150 ml Lidocaine HCl (Xylocaine 1%) 0 ml INJECT ONETIME ONE Stop: 01/08/18 16:01 Last Admin: 01/08/18 17:30 Dose: Not Given Mometasone Furoate/Formoterol Fumar (Dulera 200-5 Mcg) 2 puff IH BIDRT [facility] Last Admin: 01/09/18 08:03 Dose: Not Given - Exam General: Alert, Oriented, Cooperative, No Acute Distress Lungs: Clear to Auscultation, Normal Respiratory Effort Cardiovascular: Regular Rate, Regular Rhythm, No Murmurs GI/Abdominal Exam: Soft, No Organomegaly, Tender. No: Distended, Guarding, Rigid, Rebound Extremities: Non-Tender, No Pedal Edema Skin: Warm, Dry, Intact Consult PN Assessment/Plan Procedures: Procedures AIRWAY INHALATION TREATMENT (12/19/16) ASSAY OF ACTH (05/25/16) ASSAY OF AMYLASE (12/01/17) ASSAY OF LACTIC ACID (07/10/16) ASSAY OF LIPASE (12/01/17) ASSAY OF MAGNESIUM (12/02/17) ASSAY OF NATRIURETIC PEPTIDE (11/24/15) ASSAY OF PHOSPHORUS (12/01/17) ASSAY OF SOMATOMEDIN (05/25/16) ASSAY OF TROPONIN QUANT (06/28/17) ASSAY THYROID STIM HORMONE (12/01/17) BEHAVRAL QUALIT ANALYS VOICE (05/24/16) BILIRUBIN DIRECT (06/22/17) BLOOD CULTURE FOR BACTERIA (10/19/16) BLOOD GASES ANY COMBINATION (07/10/16) C-REACTIVE PROTEIN (10/21/17) CHEST X-RAY 1 VIEW FRONTAL (07/10/16) CHEST X-RAY 2VW FRONTAL&LATL (06/28/17) CHORIONIC GONADOTROPIN ASSAY (06/29/13) COMPLETE CBC AUTOMATED (06/22/17) COMPLETE CBC W/AUTO DIFF WBC (12/02/17) COMPREHEN METABOLIC PANEL (12/01/17) CONTRST X-RAY UPPR GI TRACT (10/23/16) CT ABD & PELV W/CONTRAST (10/21/17) CT ABD & PELVIS W/O CONTRAST (12/01/17) CT ABDOMEN W/O DYE (11/24/16) CULTURE SCREEN ONLY (10/21/17) EGD BALLOON DIL ESOPH30 MM/> (12/07/16) EGD DILATE STRICTURE (02/08/17) ELECTROCARDIOGRAM TRACING (06/28/17) EMERGENCY DEPT VISIT (12/02/17) EMERGENCY DEPT VISIT (12/02/17) EMERGENCY DEPT VISIT (12/01/17) EMERGENCY DEPT VISIT (12/01/17) EMERGENCY DEPT VISIT (06/28/17) EMERGENCY DEPT VISIT (04/28/17) EMERGENCY DEPT VISIT (02/06/17) EMERGENCY DEPT VISIT (02/06/17) EMERGENCY DEPT VISIT (10/14/16) EMERGENCY DEPT VISIT (06/29/13) ESOPH EGD DILATION <30 MM (10/02/17) FIBRIN DEGRADATION QUANT (12/04/13) HOT OR COLD PACKS THERAPY (06/07/16) HYDRATE IV INFUSION ADD-ON (12/01/17) HYDRATION IV INFUSION INIT (02/06/17) INFLUENZA A/B AG IA (06/29/13) INFLUENZA ASSAY W/OPTIC (10/21/17) INSERT TUNNELED CV CATH (11/18/16) MANUAL THERAPY 1/> REGIONS (10/30/13) MEASURE BLOOD OXYGEN LEVEL (11/24/16) METABOLIC PANEL TOTAL CA (12/02/17) PROTHROMBIN TIME (06/28/17) PT EVALUATION (06/07/16) RBC SED RATE NONAUTOMATED (07/10/16) ROUTINE VENIPUNCTURE (12/02/17) SPEECH/HEARING THERAPY (06/07/16) STREP A AG IA (10/21/17) THER/DIAG CONCURRENT INF (12/19/16) THER/PROPH/DIAG INJ IV PUSH (12/01/17) THER/PROPH/DIAG INJ SC/IM (11/24/16) THER/PROPH/DIAG IV INF ADDON (12/02/17) THER/PROPH/DIAG IV INF INIT (12/02/17) THERAPEUTIC EXERCISES (06/07/16) TOTAL CORTISOL (05/25/16) TTE W/DOPPLER COMPLETE (01/05/14) TX/PRO/DX INJ NEW DRUG ADDON (12/01/17) TX/PRO/DX INJ SAME DRUG SAUSAGE GRINDER (12/19/16) TX/PROPH/DG ADDL SEQ IV INF (11/24/16) URINALYSIS AUTO W/SCOPE (12/02/17) URINE CULTURE/COLONY COUNT (10/21/17) WITHDRAWAL OF ARTERIAL BLOOD (07/10/16) X-RAY EXAM OF ABDOMEN (10/19/16) X-RAY EXAM OF LOWER LEG (02/03/17) X-RAY EXAM OF PELVIS (02/03/17) X-RAY EXAM SERIES ABDOMEN (10/21/17) X-RAY UPPER GI DELAY W/O KUB (07/17/17) Problem List Initiated/Reviewed/Updated: Yes My Orders Last 24 Hours: My Active Orders 01/10/18 17:10 Convert IV to Saline Lock [OM.PC] Routine 01/11/18 15:15 Sodium Chloride 0.9% [Normal Saline] 1,000 ml IV ASDIRECTED Plan: ASSESSMENT AND RECOMMENDATIONS FEVER-likely secondary to central line, this was removed yesterday afternoon by Dr. Grissom. Blood cultures are growing out yeast. Currently afebrile on current therapy -Continue fluconazole NEW VISUAL FIELD DEFECT RIGHT EYE-MRI of the brain with and without contrast is normal -Outpatient ophthalmology evaluation HYPERTENSION -Resume outpatient medical therapy Hospitalist service will sign off on the patient at this time. If we can be of further assistance in medical management during her hospitalization please feel free to reconsult.
[2018-01-11] MEDS: Pantoprazole 40 MG Delayed-Release Granules 1 Packet PO SCH (18:49)
[2018-01-11] MEDS: ClonazePAM 1 MG Tab PO SCH (21:42)
[2018-01-11] MEDS: LORazepam 2 MG/ML SDV IVPUSH PRN (22:41)
[2018-01-12] MEDS: hydrALAZINE 10 MG Tab PO SCH ×3 (02:37→16:59)
[2018-01-12] MEDS: Magnesium Sulfate/Water 2 GM in Premix Bag 1 BAG IV SCH ×4 (05:01→21:30)
[2018-01-12] MEDS: Hyoscyamine 0.125 MG Tab.SL SL PRN ×3 (07:06→20:53)
[2018-01-12] MEDS: Albuterol/Ipratropium 3.0-0.5 MG/3 ML Neb Soln NEB SCH ×4 (07:16→21:30)
[2018-01-12] MEDS: Formoterol/Mometasone 200-5 MCG 8.8 GM Inhaler IH SCH ×2 (07:16→21:30)
[2018-01-12] MEDS: Ondansetron 4 MG/2 ML SDV IVPUSH PRN (08:32)
[2018-01-12] MEDS: traMADol 50 MG Tab PO PRN ×3 (08:32→21:30)
[2018-01-12] MEDS ORDERED: Polyethylene Glycol 3350 Powder 119 GM Bottle PO ONE (09:00)
[2018-01-12] MEDS: Escitalopram 10 MG Tab PO SCH (09:39)
[2018-01-12] MEDS: Docusate Sodium 100 MG Cap PO SCH ×2 (09:39→21:31)
[2018-01-12] MEDS: Lactobacillus Rhamnosus GG (Probiotic) Cap PO SCH (09:39)
[2018-01-12] MEDS: Fluticasone Propionate Nasal Spray 16 GM Bottle NASBOTH SCH (09:39)
[2018-01-12] MEDS: Cyanocobalamin (Vitamin B12) 1,000 MCG Tab PO SCH (09:39)
[2018-01-12] MEDS: Montelukast 10 MG Tab PO SCH (09:39)
[2018-01-12] MEDS: VERIFY SCOPOLAMINE PATCH TOP SCH (10:37)
[2018-01-12] MEDS: Fluconazole/Normal Saline 200 MG in Premix Bag 1 BAG IV SCH (15:18)
[2018-01-12] MEDS: Pantoprazole 40 MG Delayed-Release Granules 1 Packet PO SCH (17:45)
[2018-01-12] MEDS: Sodium Chloride 0.9% 1,000 ML IV SCH (19:00)
[2018-01-12] MEDS: ClonazePAM 1 MG Tab PO SCH (21:30)
[2018-01-12] MEDS: Acetaminophen 160 MG Tab,Disintegrating PO PRN (21:30)
[2018-01-13] MEDS: Magnesium Sulfate/Water 2 GM in Premix Bag 1 BAG IV SCH (03:01)
[2018-01-13] MEDS: hydrALAZINE 10 MG Tab PO SCH ×3 (03:01→17:39)
[2018-01-13] MEDS: Albuterol/Ipratropium 3.0-0.5 MG/3 ML Neb Soln NEB SCH ×4 (07:13→20:57)
[2018-01-13] MEDS: Formoterol/Mometasone 200-5 MCG 8.8 GM Inhaler IH SCH ×2 (07:14→20:58)
[2018-01-13] MEDS: Docusate Sodium 100 MG Cap PO SCH ×2 (08:40→20:58)
[2018-01-13] MEDS: Lactobacillus Rhamnosus GG (Probiotic) Cap PO SCH (08:40)
[2018-01-13] MEDS: Escitalopram 10 MG Tab PO SCH (08:40)
[2018-01-13] MEDS: Fluticasone Propionate Nasal Spray 16 GM Bottle NASBOTH SCH (08:40)
[2018-01-13] MEDS: Cyanocobalamin (Vitamin B12) 1,000 MCG Tab PO SCH (08:40)
[2018-01-13] MEDS: Montelukast 10 MG Tab PO SCH (08:41)
[2018-01-13] MEDS: VERIFY SCOPOLAMINE PATCH TOP SCH (08:41)
[2018-01-13] MEDS: DULoxetine 20 MG Cap PO SCH (09:10)
--- NOTE | 2018-01-13 13:36 | PN ---
DATE OF SERVICE: 01/08/2018 SUBJECTIVE: The patient has been running temps in the 100 to 101 range, heart rate is right around 100, blood pressure 141/83 most recently, and O2 sats on room air are 92%. On her abdominal exam, is somewhat tender around the J-tube site. Otherwise, the patient had a CAT scan of the abdomen today. This showed a fluid collection in the left anterolateral abdominal wall, just underneath the surface of the abdominal wall. It is smaller than the previous CT scan, but does have some rim enhancement, and even though it is right up against the abdominal wall, there is absolutely no tenderness on palpation in that area. There is also a similar-appearing fluid collection in front of the rectum. There is no evidence of abscess around the J-tube site. I think that is tender just because of the presence of the tube. She has had a fairly substantial right pleural effusion which we will probably need to tap off again, although the last time that was tapped, it was sterile. Labs show a somewhat low white count of 3.9, hemoglobin is 11. Chemistries show no major problems. Creatinine is 0.5 and blood sugar 90, with TPN being infused. Overall, the patient does not look overly ill at this point. PLAN: The plan at this time will be to add Unasyn which may provide some additional coverage in terms of enterococcus and such. We will also obtain blood cultures, one through each of the ports of the Rivers catheter to try to determine if there might be a problem in that regard, as far as the infection goes. Otherwise, we will see how things go clinically over the next couple of days. If her condition deteriorates, we will need to get those areas drained. Unfortunately, the fluid collection around the rectum would need to be drained by means of laparotomy per the radiologist, so if that were the case, we would do a limited laparotomy to drain both areas of fluid collection, and then we would maybe at that point empirically change out the Rivers catheter or at least remove it for a day or so too. We will see how things go clinically over the next 24 to 48 hours. Jese Grissom MD /[id number]
[2018-01-13] MEDS: Fluconazole/Normal Saline 200 MG in Premix Bag 1 BAG IV SCH (13:53)
--- NOTE | 2018-01-13 14:12 | OR ---
DATE OF PROCEDURE: 01/08/2018 PREOPERATIVE DIAGNOSIS: Status post Rivers catheter placement with positive fungal blood cultures. POSTOPERATIVE DIAGNOSIS: Status post Rivers catheter placement with positive fungal blood cultures. OPERATIVE PROCEDURE: Removal of Rivers catheter ([id number]). ANESTHESIA: None. INDICATION FOR PROCEDURE: The patient presented with some fever and malaise overnight. Following admission, she was noted to have blood cultures positive for fungus. One of these cultures was drawn through the Rivers catheter, and the patient was felt to be at risk for an infected Rivesr catheter. Given this was recently placed, so it should be relatively easily removed at the bedside. Potential risks including further bleeding and infection were reviewed, and the patient wishes to proceed. DETAILS OF PROCEDURE: In the hospital bed, the area around the Rivers catheter was prepped and draped and the suture affixing it to the skin was then cut. Following this, a gentle traction resulted in removal of the Rivers catheter as tissues. Dressing was applied and there were no evident complications. Jese Grissom MD /[id number]
[2018-01-13] MEDS: Hyoscyamine 0.125 MG Tab.SL SL PRN (17:39)
[2018-01-13] MEDS: Scopolamine 1.5 MG Transdermal Patch TRDERM SCH (17:42)
[2018-01-13] MEDS: Pantoprazole 40 MG Delayed-Release Granules 1 Packet PO SCH (17:43)
[2018-01-13] MEDS: Acetaminophen 160 MG Tab,Disintegrating PO PRN (20:57)
[2018-01-13] MEDS: ClonazePAM 1 MG Tab PO SCH (20:57)
[2018-01-13] MEDS: traMADol 50 MG Tab PO PRN (20:57)
[2018-01-13] MEDS: Ondansetron 4 MG/2 ML SDV IVPUSH PRN (20:57)
[2018-01-14] MEDS: LORazepam 2 MG/ML SDV IVPUSH PRN (00:03)
[2018-01-14] MEDS: hydrALAZINE 10 MG Tab PO SCH (02:56)
[2018-01-14] MEDS: Hyoscyamine 0.125 MG Tab.SL SL PRN (02:58)
[2018-01-14] MEDS: Ondansetron 4 MG/2 ML SDV IVPUSH PRN (04:05)
[2018-01-14] MEDS: Albuterol/Ipratropium 3.0-0.5 MG/3 ML Neb Soln NEB SCH (07:18)
[2018-01-14] MEDS: Formoterol/Mometasone 200-5 MCG 8.8 GM Inhaler IH SCH (07:19)
--- NOTE | 2018-01-14 07:38 | PN ---
DATE OF SERVICE: 01/08/2018 The patient was admitted overnight with temperatures up to 102 to 103 range. Clinically, her only complaint is some increased pain around the jejunostomy tube. Her lungs appear to be clear. Her incision is clean and did not complain of any dysuria. Blood cultures were obtained that are pending. The patient was started on meropenem empirically. Examination shows the patient to be fairly tender in the area around the jejunostomy tube. I suspect there may be a focal area of infection or abscess in that location. We are going to obtain a CT scan of the abdomen and pelvis this morning with some IV contrast, along with some water soluble contrast orally, as well as via the J-tube. We will recheck the situation after the CAT scan is completed and proceed from that point. Jese Grissom MD /[id number]
[2018-01-14 07:58] VITALS: BP 122/75
--- NOTE | 2018-01-14 08:22 | PN ---
DATE OF SERVICE: 01/12/2018 The patient has been afebrile with stable vital signs. Oral intake was quite good over the last 24 hours with around 2 L of liquids recorded in. Given this, we will hold off on the Rivers catheter, as it does not look like she will need to be going home on TPN. We will start back with a regular diet and have her order off the menu what she would like. She has not moved her bowels for some time. We will give her MiraLAX 119 grams in 32 ounces of Gatorade today. She may be ready for discharge home in the next day or so. We will probably continue the course of the Diflucan orally upon discharge. Jese Grissom MD /[id number]
[2018-01-14] MEDS ORDERED: Fluconazole 100 MG Tab PO SCH (09:00)
[2018-01-14] MEDS: Docusate Sodium 100 MG Cap PO SCH (09:08)
[2018-01-14] MEDS: Lactobacillus Rhamnosus GG (Probiotic) Cap PO SCH (09:08)
[2018-01-14] MEDS: Escitalopram 10 MG Tab PO SCH (09:09)
[2018-01-14] MEDS: DULoxetine 20 MG Cap PO SCH (09:09)
[2018-01-14] MEDS: Fluticasone Propionate Nasal Spray 16 GM Bottle NASBOTH SCH (09:09)
[2018-01-14] MEDS: VERIFY SCOPOLAMINE PATCH TOP SCH (09:10)
[2018-01-14] MEDS: Montelukast 10 MG Tab PO SCH (09:10)
[2018-01-14] MEDS: Cyanocobalamin (Vitamin B12) 1,000 MCG Tab PO SCH (09:10)
--- NOTE | 2018-01-14 13:14 | PN ---
DATE OF SERVICE: 01/13/2018 The patient has been afebrile with stable vital signs. She had moved her bowels twice yesterday after MiraLax and is generally feeling quite good. We will restart her Cymbalta today. Otherwise, we will continue the IV Diflucan 1 more day, at which time she will likely be ready for discharge home tomorrow as her oral intake remains good and we will not need to place a Rivers catheter. Jese Grissom MD /[id number]
--- NOTE | 2018-01-15 05:45 | DISCH ---
ADMISSION DIAGNOSES: Fever, TPN therapy, abdominal pain, and nausea. DISCHARGE DIAGNOSES: 1. Yeast cultured from blood, central line, and blood, left arm. 2. Thoracentesis, 01/09/2018, with rare white blood cells, no organisms seen. So pleural effusion, status post insertion of jejunostomy tube. 3. Total gastrectomy, unspecified surgical malabsorption. 4. B12 deficiency. 5. Asthma. 6. Depression. HISTORY: Shamika Durán presented to the emergency room after being discharged three days prior. She was discharged on 01/04/2018 and went to the ER on 01/08/2018 for a fever of 101.5. She was admitted to the hospital. Cultures were obtained as stated above. She was treated with IV antibiotics until cultures came back, then was treated with IV Diflucan. She did have a jejunostomy tube in, declined allowing any feedings through that tube stating it gave her an increased amount of abdominal pain and nausea. She was treated for nausea. Lab values were watched closely. Once central line was removed on 01/08/2018, she remained afebrile. Labs were normal. Oral intake picked up to 1140, 2000, 2110, and 1616 respectively the last four days. She is ready to be discharged to home on 01/14/2018 without any complications. REVIEW OF SYSTEMS: CONSTITUTIONAL: No fever, chills, night sweats, or fatigue. HEENT: Negative. NECK: Negative. CHEST: No chest pain, shortness of breath, fast or irregular heart beat. LUNGS: No cough. ABDOMEN: She has minimal generalized abdominal pain. Jejunostomy tube is intact. Midline incision is negative. EXTREMITIES: Negative. Full range of motion. Very minimal, if any, peripheral edema. NEUROLOGIC: Cranial nerves II through XII intact. PSYCHIATRIC: Mood and affect appropriate. PHYSICAL EXAMINATION: GENERAL: Shamika Durán is a 42-year-old female. VITAL SIGNS: Height is 5 feet 4.96 inches. Weight is 195 pounds. HEENT: Negative. NECK: Supple. HEART: Regular rate and rhythm. LUNGS: Clear. ABDOMEN: Soft, minimally tender. J-tube in place. No breakdown of skin around the skin insertion site. EXTREMITIES: Without peripheral edema. NEUROLOGIC: Cranial nerves II through XII intact. Gait is steady. SKIN: Without rash. PSYCHIATRIC: Mood and affect appropriate. DISPOSITION: Discharged to home with home health care to resume same care without the TPN. Followup appointment with Shavon Siddiqi PA-C, on 01/21/2018 at 10:15 a.m. Chest x-ray, PA and lateral, at 9:45 a.m. before clinic appointment. MEDICATIONS: New medication: Diflucan 100 mg orally, #5, to take one daily for 5 days. She is to resume her home medications: Tylenol Kayode Meltaways 650 oral q.4 hours p.r.n., DuoNeb b.i.d., Symbicort 160/4.5 mcg inhaler 2 puffs twice daily, Zyrtec 10 mg daily, Klonopin 1 mg at bedtime, B12 of 500 mcg sublingual daily, Cymbalta 20 mg daily, Colace 100 mg twice daily, vitamin D2 of 50,000 units oral daily, Lexapro 10 mg oral daily, Flonase 1 spray in each nostril twice daily, probiotic one daily, Xopenex 1.25 mg nebulized every 6 hours p.r.n. wheezing, multivitamin 1 tablet b.i.d., chewable Singulair 10 mg oral daily. Prilosec 2 mg per 5 mL, 10 mL oral daily, or Protonix granules 40 mg oral every 24 hours, she will decide which one she is to take. She has Compazine, Zofran, Phenergan at home for nausea. Apresoline 10 mg oral q.8 hours. Tramadol 50 mg every 4 hours, which she has at home from previous hospitalization. DIET: Step-4 gastric bypass diet. Drink 8 to 10 glasses of water a day. ACTIVITY: No lifting greater than 10 pounds for 2 more weeks. Shower-bathing, may shower. Notify provider if any fever, nausea, or vomiting. Wound incision care, keep area around J- tube clean and dry. Special instruction, use incentive spirometer 10 times every hour while awake for 2 weeks.
--- NOTE | 2018-01-31 23:03 | OR ---
DATE OF PROCEDURE: 01/09/2018 PREOPERATIVE DIAGNOSIS: Recurrent right pleural effusion. POSTOPERATIVE DIAGNOSIS: Recurrent right pleural effusion. OPERATIVE PROCEDURE: Ultrasound-guided right thoracentesis. INDICATIONS FOR PROCEDURE: The patient presents with some recurring pleural fluid, and appeared to be symptomatic from that in the right pleural space. Plan was to proceed with a thoracentesis with ultrasound guidance. Potential risks including bleeding, infection, and injury to underlying lung were all reviewed, and the patient wished to proceed. DETAILS OF PROCEDURE: The patient was placed in a sitting position on the hospital bed. The right lateral chest wall was prepped and draped. The point of optimal entrance for the thoracentesis was marked by ultrasound, and that area was prepped and draped and then was anesthetized with 1% lidocaine. The thoracentesis catheter was placed. 1200 mL of clear serous fluid was evacuated. This was sent once again for cultures, and a subsequent chest x- ray showed near complete removal of the fluid. COMPLICATIONS: No complications after the catheter had been removed. Jese Grissom MD /[id number]
== END 2018-01-14 11:18 | disposition home health service (06) | DRG 721 ==
LOC: JP.ED 23:01 → JP.2SS 01-08 01:53
PROVIDERS: ADMIT Surgery; ATTEND Surgery
PROC: 05PYX3Z Removal of Infusion Device from Upper Vein, External Approach (ICD-10-PCS; principal; 2018-01-08)
PROC: 0W993ZZ Drainage of Right Pleural Cavity, Percutaneous Approach (ICD-10-PCS; 2018-01-09)
DX: T80.211A Bloodstream infection due to central venous catheter, initial encounter (principal); T82.7XXA Infection and inflammatory reaction due to other cardiac and vascular devices, implants and grafts, initial encounter; B37.9 Candidiasis, unspecified; J90 Pleural effusion, not elsewhere classified; H54.7 Unspecified visual loss; I10 Essential (primary) hypertension; J45.909 Unspecified asthma, uncomplicated; K91.2 Postsurgical malabsorption, not elsewhere classified; G47.30 Sleep apnea, unspecified; Z99.89 Dependence on other enabling machines and devices; K21.9 Gastro-esophageal reflux disease without esophagitis; F32.9 Major depressive disorder, single episode, unspecified; F41.9 Anxiety disorder, unspecified; E53.8 Deficiency of other specified B group vitamins; E55.9 Vitamin D deficiency, unspecified; Z93.1 Gastrostomy status; Z98.84 Bariatric surgery status; M54.9 Dorsalgia, unspecified; G89.29 Other chronic pain; Z88.5 Allergy status to narcotic agent; Z91.018 Allergy to other foods; Z91.048 Other nonmedicinal substance allergy status
CPT/HCPCS: 36415; 70553; 70553-26; 71046; 71046-26; 74177; 74177-26; 80053; 80202; 83605; 83735; 84100; 85025; 85027; 87015; 87040; 87070; 87077; 87102; 87116; 87205; 87206; 87220; 94640; 94640-76; 94762; 99284; A9270-GY; A9576; J0131; J0295; J1170; J1450; J2060; J2185; J2405; J3370; J3475; J7030; J7040; J7042; J7050; J7620; Q9965

== ENCOUNTER 2018-01-24 15:40 | Emergency (ER) | payer BC, MEDICAID ==
[2018-01-24 16:38] VITALS: BP 132/84
--- NOTE | 2018-01-24 17:28 | EDM.PDOC ---
ED HPI GENERAL MEDICAL PROBLEM - General Chief Complaint: General Stated Complaint: FEEDING TUBE FELL OUT Time Seen by Provider: 01/24/18 17:15 Source of Information: Reports: Patient, Old Records, RN History Limitations: Reports: No Limitations - History of Present Illness INITIAL COMMENTS - FREE TEXT/NARRATIVE: 42 yo female here after a gastric feeding tube fell out at home about 2 hrs ago. Is a patient of Dr. Sreedhar Chang. Has not been using the tube at home. Onset: Today Onset Date: 01/24/18 Onset Time: 15:00 Duration: Hour(s): (2), Constant Location: Reports: Abdomen Quality: Reports: Other (no pain) Severity: Mild Improves with: Reports: None Worsens with: Reports: None Context: Reports: Other (feeding tube in place lately in the event of need, has not been needed. ) Associated Symptoms: Reports: No Other Symptoms Treatments MAINTENANCE FOREMAN: Reports: Other (see below) (none) - Related Data Allergies Allergy/AdvReac Type Severity Reaction Status Date / Time banana Allergy Severe Swollen Verified 12/14/17 09:55 Tongue walnut Allergy Intermediate Swollen Verified 12/14/17 09:55 Tongue mold Allergy Wheezing Verified 12/14/17 09:55 morphine Allergy Hives Verified 12/14/17 09:55 poison corine extract Allergy Rash Verified 12/14/17 09:55 pollen extracts Allergy Wheezing Verified 12/14/17 09:55 DUST Allergy Unknown Wheezing Uncoded 12/14/17 09:55 SMOKE AdvReac Intermediate Bronchospas Uncoded 12/14/17 09:55 ms Home Meds: Home Meds Montelukast [Singulair] 10 mg PO DAILY #30 tab 01/10/14 [Rx] Albuterol/Ipratropium [DuoNeb 3.0-0.5 MG/3 ML] 3 ml INH BID 12/07/15 [History] ClonazePAM [KlonoPIN] 1 mg PO BEDTIME 07/10/16 [History] Budesonide/Formoterol Fumarate [Symbicort 160-4.5 Mcg Inhaler] 2 puff IH BID [History] Cyanocobalamin (Vitamin B-12) [Vitamin B-12] 500 mcg SL DAILY 11/09/16 [History] Lactobacillus Acidophilus [Probiotic] 1 each PO DAILY 11/09/16 [History] Levalbuterol Tartrate [Xopenex HFA] 2 puff INH Q4H PRN 11/09/16 [History] Levalbuterol HCl [Xopenex] 1.25 mg NEB Q6H PRN 11/30/16 [History] Acetaminophen [Tylenol Jr. Meltaways] 640 mg PO Q4H PRN #0 tab.dis 12/13/16 [Rx] Scopolamine [Transderm-Scop] 1.5 mg TOP Q3D PRN #3 patch 02/19/17 [Rx] Escitalopram Oxalate 10 mg PO DAILY 04/28/17 [History] Cetirizine [ZyrTEC] 10 mg PO DAILY tablet 11/17/17 [Rx] Pantoprazole [ProTONIX Granules] 40 mg PO Q24H packet 11/17/17 [Rx] Prochlorperazine [Compazine] 5 mg PO Q6H PRN tablet 11/17/17 [Rx] Ergocalciferol (Vitamin D2) [Vitamin D2] 50,000 unit PO DAILY 12/14/17 [History] Fluticasone Propionate [Flonase] 2 spray NASBOTH DAILY 12/14/17 [History] MV,Ca,Min/Iron Fum/FA/Vit K [Multi For Her Tablet] 1 tab PO DAILY 12/14/17 [ History] Omeprazole Magnesium [Prilosec] 10 ml PO DAILY 12/14/17 [History] hydrALAZINE [Apresoline] 10 mg PO Q8H 12/14/17 [History] Acetaminophen [Tylenol] 650 mg PO Q6H PRN tablet 01/04/18 [Rx] DULoxetine [Cymbalta] 20 mg PO DAILY #90 cap 01/04/18 [Rx] Docusate Sodium [Colace 50 MG/5 ML Liquid] 100 mg PO BID #100 ml 01/04/18 [Rx] Past Medical History HEENT History: Reports: Sinusitis, Other (See Below) Other HEENT History: TMJ. soften Palate. polyps on larynx Cardiovascular History: Reports: Heart Murmur, Other (See Below) Other Cardiovascular History: Mitral Valve Regurgitation. Left heart faliure "stiff". Rivers in place Respiratory History: Reports: Asthma, Bronchitis, Recurrent, COPD, Intubation, Previous, Pneumonia, Recurrent, Pneumothorax, Sleep Apnea, SOB, Other (See Below ) Other Respiratory History: polyp on larynx; intubated x2 after "quit breathing" . c-pap Gastrointestinal History: Reports: Bowel Obstruction, Cholelithiasis, Chronic Constipation, Chronic Diarrhea, GERD, Hiatal Hernia Genitourinary History: Reports: Urinary Incontinence ZONING ADMINISTRATOR History: Reports: Polycystic Ovaries, Musculoskeletal History: Reports: Back Pain, Chronic, Fracture, Fibromyalgia, Other (See Below) Other Musculoskeletal History: knee/ankle pain bilateral Neurological History: Reports: Concussion, Headaches, Chronic, Migraines, Seizure, Vertigo Psychiatric History: Reports: Anxiety, Depression, Eating Disorders, Mood Swings , Panic Attack Endocrine/Metabolic History: Reports: Obesity/BMI 30+, Vitamin D Deficiency, Other (See Below) Other Endocrine/Metabolic History: prediabetic/adrenal gland deficiency Hematologic History: Reports: Anemia, B12 Deficiency, Folic Acid Immunologic History: Reports: Other (See Below) Other Immunologic History: due to steriod use for medical reasons, "they" feel her immune system is compromised Oncologic (Cancer) History: Reports: None Dermatologic History: Reports: Cellulitis, Other (See Below) Other Dermatologic History: biopsy of face for moles - Infectious Disease History Infectious Disease History: Reports: Chicken Pox, Shingles Other Infectious Disease History: Viral meningitis - Past Surgical History Head Surgeries/Procedures: Reports: None HEENT Surgical History: Reports: LASIK, Oral Surgery Cardiovascular Surgical History: Reports: Other (See Below) Other Cardiovascular Surgeries/Procedures: angiogram Respiratory Surgical History: Reports: None GI Surgical History: Reports: Cholecystectomy, EGD, Esophageal Dilatation, Hernia Repair/Other, Nigel Fundoplication, Other (See Below) Other GI Surgeries/Procedures: full gastroectomy. feeding tube Female Surgical History: Reports: Section, Tubal Ligation Endocrine Surgical History: Reports: None Neurological Surgical History: Reports: None Musculoskeletal Surgical History: Reports: None Dermatological Surgical History: Reports: Skin Biopsy Social & Family History - Family History Family Medical History: Noncontributory Cardiac: Reports: Pacemaker Respiratory: Reports: Asthma, COPD, Other (See Below) Other Respiratory Family Hisory: bronchitis GI: Reports: Irritable Bowel Syndrome OBGYN: Reports: Musculoskeletal: Reports: Arthritis Neurological: Reports: Cerebral Aneurysms Psychiatric: Reports: Anxiety, Depression Endocrine/Metabolic: Reports: Diabetes, type II, Hypothyroidism, Obesity/MBI 30+ , Vitamin D Deficiency Hematologic: Reports: B12 Deficiency Immunologic: Reports: None Oncologic: Reports: Brain, Lung, Skin - Tobacco Use Smoking Status *Q: Never Smoker Second Hand Smoke Exposure: No - Caffeine Use Caffeine Use: Reports: None Other Caffeine Use: 2 cups coffee per day and 1-2 sodas Caffeine Use Comment: 2-3 cups daily - Alcohol Use Days Per Week of Alcohol Use: 0 - Recreational Drug Use Recreational Drug Use: No - Living Situation & Occupation Living situation: Reports: , with Family Occupation: Employed ED ROS GENERAL - Review of Systems Review Of Systems: See Below Constitutional: Reports: No Symptoms HEENT: Reports: No Symptoms Respiratory: Reports: No Symptoms Cardiovascular: Reports: No Symptoms GI/Abdominal: Reports: Other (feeding tube fell out.) : Reports: No Symptoms Musculoskeletal: Reports: No Symptoms Skin: Reports: No Symptoms Neurological: Reports: No Symptoms ED EXAM, GENERAL - Physical Exam Exam: See Below Exam Limited By: No Limitations General Appearance: Alert, WD/WN, No Apparent Distress Eye Exam: Bilateral Eye: Normal Inspection Ears: Normal External Exam, Normal Canal, Hearing Grossly Normal Ear Exam: Bilateral Ear: Auricle Normal, Canal Normal Nose: Normal Inspection, Normal Mucosa, No Blood Throat/Mouth: Normal Inspection, Normal Lips, Normal Oropharynx, Normal Voice, No Airway Compromise Head: Atraumatic, Normocephalic Neck: Normal Inspection Respiratory/Chest: No Respiratory Distress, Lungs Clear, Normal Breath Sounds, No Accessory Muscle Use Cardiovascular: Regular Rate, Rhythm GI/Abdominal: Soft, Non-Tender, Other (Stoma present over stomach) Back Exam: Normal Inspection Extremities: Normal Inspection Neurological: Alert, Oriented, CN II-XII Intact, Normal Cognition, No Motor/ Sensory Deficits Psychiatric: Normal Affect, Normal Mood Skin Exam: Warm, Dry, Intact, Normal Color, No Rash Course - Vital Signs Text/Narrative:: Unable to replace the feeding tube. Dr. Grissom called, says to leave the tube out and have her follow up in the clinic with Shavon Siddiqi next Sunday. Last Recorded V/S: Last Vital Signs Temp 97.8 C H 01/24/18 17:10 Pulse 78 01/24/18 17:10 Resp 16 01/24/18 17:10 BP 132/84 01/24/18 17:10 Pulse Ox 97 01/24/18 17:10 Departure - Departure Time of Disposition: 17:28 Disposition: Home, Self-Care 01 Condition: Good Clinical Impression: Feeding tube dysfunction Qualifiers: Encounter type: initial encounter Qualified Code(s): T85.598A - Other mechanical complication of other gastrointestinal prosthetic devices, implants and grafts, initial encounter - Discharge Information Referrals: Abran Roca Sr, MD [Primary Care Provider] -
== END 2018-01-24 18:14 | disposition home or self-care (01) ==
LOC: JP.ED 15:40
DX: K94.23 Gastrostomy malfunction (principal); Z91.018 Allergy to other foods; Z88.5 Allergy status to narcotic agent; Z91.048 Other nonmedicinal substance allergy status; Z79.899 Other long term (current) drug therapy
CPT/HCPCS: 99284

== ENCOUNTER 2018-03-18 15:47 | Emergency (ER) | payer BC, MEDICAID ==
[2018-03-18 16:26] VITALS: BP 147/86
--- NOTE | 2018-03-18 16:41 | EDM.PDOC ---
ED HPI GENERAL MEDICAL PROBLEM - General Chief Complaint: General Stated Complaint: FEEDING TUBE ISSUES Time Seen by Provider: 03/18/18 16:35 Source of Information: Reports: Patient, Old Records, RN History Limitations: Reports: No Limitations - History of Present Illness INITIAL COMMENTS - FREE TEXT/NARRATIVE: Recently had a feeding tube placed nasally into her jejunum for malnutrition. Has a problem with its functioning now. Is followed by a doctor in [place]. Was told to come to the ER for an X-ray for placement verification. Has a pHx of [id number] per Dr. Kailyn Grissom here. Can't get anything to go down the feeding tube. Onset Date: 03/17/18 Duration: Day(s): (1), Constant Location: Reports: Other (feeding tube) Quality: Reports: Other (throat irritation from feeding tube only) Severity: Mild Improves with: Reports: None Worsens with: Reports: None Context: Reports: Other (feeding tube for supplemental nutrition.) Associated Symptoms: Reports: No Other Symptoms Treatments LITIGATION SPECIALIST: Reports: Other (see below) (Called [place] doctor and was told to come to the ER for an X-ray) Throat Pain Score (Numeric/FACES): 7 Abdominal Pain Score (Numeric/FACES): 5 - Related Data Allergies Allergy/AdvReac Type Severity Reaction Status Date / Time banana Allergy Severe Swollen Verified 12/14/17 09:55 Tongue walnut Allergy Intermediate Swollen Verified 12/14/17 09:55 Tongue mold Allergy Wheezing Verified 12/14/17 09:55 morphine Allergy Hives Verified 12/14/17 09:55 poison corine extract Allergy Rash Verified 12/14/17 09:55 pollen extracts Allergy Wheezing Verified 12/14/17 09:55 DUST Allergy Unknown Wheezing Uncoded 12/14/17 09:55 SMOKE AdvReac Intermediate Bronchospas Uncoded 12/14/17 09:55 ms Home Meds: Home Meds Montelukast [Singulair] 10 mg PO DAILY #30 tab 01/10/14 [Rx] Albuterol/Ipratropium [DuoNeb 3.0-0.5 MG/3 ML] 3 ml INH BID 12/07/15 [History] Budesonide/Formoterol Fumarate [Symbicort 160-4.5 Mcg Inhaler] 2 puff IH BID [History] Cyanocobalamin (Vitamin B-12) [Vitamin B-12] 500 mcg SL DAILY 11/09/16 [History] Lactobacillus Acidophilus [Probiotic] 1 each PO DAILY 11/09/16 [History] Levalbuterol Tartrate [Xopenex HFA] 2 puff INH Q4H PRN 11/09/16 [History] Levalbuterol HCl [Xopenex] 1.25 mg NEB Q6H PRN 11/30/16 [History] Acetaminophen [Tylenol Jr. Meltaways] 640 mg PO Q4H PRN #0 tab.dis 12/13/16 [Rx] Scopolamine [Transderm-Scop] 1.5 mg TOP Q3D PRN #3 patch 02/19/17 [Rx] Escitalopram Oxalate 10 mg PO DAILY 04/28/17 [History] Cetirizine [ZyrTEC] 10 mg PO DAILY tablet 11/17/17 [Rx] Ergocalciferol (Vitamin D2) [Vitamin D2] 50,000 unit PO DAILY 12/14/17 [History] Fluticasone Propionate [Flonase] 2 spray NASBOTH DAILY 12/14/17 [History] MV,Ca,Min/Iron Fum/FA/Vit K [Multi For Her Tablet] 1 tab PO DAILY 12/14/17 [ History] hydrALAZINE [Apresoline] 10 mg PO Q8H 12/14/17 [History] Acetaminophen [Tylenol] 650 mg PO Q6H PRN tablet 01/04/18 [Rx] DULoxetine [Cymbalta] 20 mg PO DAILY #90 cap 01/04/18 [Rx] ALPRAZolam [Xanax] 1 mg PO TID PRN 03/18/18 [History] Folic Acid 1 mg PO DAILY 03/18/18 [History] Formoterol/Mometasone [Dulera 100 MCG/5 MCG] 2 puff INH BID 03/18/18 [History] L.acidoph,Paracasei, B.lactis [Probiotic] 1 tab PO DAILY 03/18/18 [History] LORazepam [Ativan] 1 mg PO TID PRN 03/18/18 [History] Lubiprostone [Amitiza] 24 mcg PO BID 03/18/18 [History] Magnesium Citrate [Citrate of Magnesia] 296 ml PO ASDIRECTED PRN 03/18/18 [ History] Magnesium Hydroxide [Milk of Magnesia] 30 ml PO ASDIRECTED 03/18/18 [History] Meperidine HCl [Demerol] 50 - 100 mg PO ASDIRECTED PRN 03/18/18 [History] Omeprazole Magnesium [Prilosec Otc] 40 mg PO DAILY 03/18/18 [History] Ondansetron [Zofran ODT] 4 mg PO ASDIRECTED PRN 03/18/18 [History] Trimethobenzamide HCl 300 mg PO ASDIRECTED PRN 03/18/18 [History] traMADol HCl [Ultram] 50 mg PO Q6H PRN 03/18/18 [History] Past Medical History HEENT History: Reports: Sinusitis, Other (See Below) Other HEENT History: TMJ. soften Palate. polyps on larynx Cardiovascular History: Reports: Heart Murmur, Other (See Below) Other Cardiovascular History: Mitral Valve Regurgitation. Left heart faliure "stiff". Rivers in place Respiratory History: Reports: Asthma, Bronchitis, Recurrent, COPD, Intubation, Previous, Pneumonia, Recurrent, Pneumothorax, Sleep Apnea, SOB, Other (See Below ) Other Respiratory History: polyp on larynx; intubated x2 after "quit breathing" . 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 History: Reports: Polycystic Ovaries, Musculoskeletal History: Reports: Back Pain, Chronic, Fracture, Fibromyalgia, Other (See Below) Other Musculoskeletal History: knee/ankle pain bilateral Neurological History: Reports: Concussion, Headaches, Chronic, Migraines, Seizure, Vertigo Psychiatric History: Reports: Anxiety, Depression, Eating Disorders, Mood Swings , Panic Attack Endocrine/Metabolic History: Reports: Obesity/BMI 30+, Vitamin D Deficiency, Other (See Below) Other Endocrine/Metabolic History: prediabetic/adrenal gland deficiency Hematologic History: Reports: Anemia, B12 Deficiency, Folic Acid Immunologic History: Reports: Other (See Below) Other Immunologic History: due to steriod use for medical reasons, "they" feel her immune system is compromised Oncologic (Cancer) History: Reports: None Dermatologic History: Reports: Cellulitis, Other (See Below) Other Dermatologic History: biopsy of face for moles - Infectious Disease History Infectious Disease History: Reports: Chicken Pox, Shingles Other Infectious Disease History: Viral meningitis - Past Surgical History Head Surgeries/Procedures: Reports: None HEENT Surgical History: Reports: LASIK, Oral Surgery Cardiovascular Surgical History: Reports: Other (See Below) Other Cardiovascular Surgeries/Procedures: angiogram Respiratory Surgical History: Reports: None GI Surgical History: Reports: Cholecystectomy, EGD, Esophageal Dilatation, Hernia Repair/Other, Nigel Fundoplication, Other (See Below) Other GI Surgeries/Procedures: full gastroectomy. feeding tube Female Surgical History: Reports: Section, Tubal Ligation Endocrine Surgical History: Reports: None Neurological Surgical History: Reports: None Musculoskeletal Surgical History: Reports: None Dermatological Surgical History: Reports: Skin Biopsy Social & Family History - Family History Family Medical History: Noncontributory Cardiac: Reports: Pacemaker Respiratory: Reports: Asthma, COPD, Other (See Below) Other Respiratory Family Hisory: bronchitis GI: Reports: Irritable Bowel Syndrome OBGYN: Reports: Musculoskeletal: Reports: Arthritis Neurological: Reports: Cerebral Aneurysms Psychiatric: Reports: Anxiety, Depression Endocrine/Metabolic: Reports: Diabetes, type II, Hypothyroidism, Obesity/MBI 30+ , Vitamin D Deficiency Hematologic: Reports: B12 Deficiency Immunologic: Reports: None Oncologic: Reports: Brain, Lung, Skin - Tobacco Use Smoking Status *Q: Never Smoker - Caffeine Use Caffeine Use: Reports: None Other Caffeine Use: 2 cups coffee per day and 1-2 sodas Caffeine Use Comment: 2-3 cups daily - Recreational Drug Use Recreational Drug Use: No - Living Situation & Occupation Living situation: Reports: , with Family Occupation: Employed ED ROS GENERAL - Review of Systems Review Of Systems: See Below Constitutional: Reports: No Symptoms HEENT: Reports: No Symptoms Respiratory: Reports: No Symptoms Cardiovascular: Reports: No Symptoms GI/Abdominal: Reports: No Symptoms : Reports: No Symptoms Musculoskeletal: Reports: No Symptoms Skin: Reports: No Symptoms Neurological: Reports: No Symptoms Psychiatric: Reports: No Symptoms ED EXAM, GENERAL - Physical Exam Exam: See Below Exam Limited By: No Limitations General Appearance: Alert, WD/WN, No Apparent Distress Eye Exam: Bilateral Eye: Normal Inspection Ears: Normal External Exam, Normal Canal, Hearing Grossly Normal Ear Exam: Bilateral Ear: Auricle Normal, Canal Normal Nose: Normal Inspection, Normal Mucosa, No Blood, Other (feeding tube present in nares) Throat/Mouth: Normal Inspection, Normal Lips, Normal Oropharynx, Normal Voice, No Airway Compromise Head: Atraumatic, Normocephalic Neck: Normal Inspection Respiratory/Chest: No Respiratory Distress, Lungs Clear, Normal Breath Sounds, No Accessory Muscle Use Cardiovascular: Regular Rate, Rhythm, No Edema GI/Abdominal: Normal Bowel Sounds, Soft, Non-Tender, No Distention Neurological: Alert, Oriented, CN II-XII Intact, Normal Cognition, No Motor/ Sensory Deficits Psychiatric: Normal Affect, Normal Mood Skin Exam: Warm, Dry, Intact, Normal Color, No Rash Lymphatic: No Adenopathy Course - Vital Signs Text/Narrative:: Attempted flushing of NG per nursing-successful Last Recorded V/S: Last Vital Signs Temp 36.3 C 03/18/18 16:27 Pulse 79 03/18/18 16:27 Resp 16 03/18/18 16:27 BP 147/86 H 03/18/18 16:27 Pulse Ox 100 03/18/18 16:27 - Orders/Labs/Meds Orders: Active Orders 24 hr Category Date Time Status Abdomen 1V Upright [CR] Stat Exams 03/18/18 16:37 Taken - Radiology Interpretation Free Text/Narrative:: [id number] tube looks to be in the stomach rather than the jejunum. Departure - Departure Time of Disposition: 17:17 Disposition: Home, Self-Care 01 Condition: Good Clinical Impression: Feeding tube obstruction Qualifiers: Encounter type: initial encounter Qualified Code(s): T85.598A - Other mechanical complication of other gastrointestinal prosthetic devices, implants and grafts, initial encounter - Discharge Information Referrals: Abran Roca Sr, MD [Primary Care Provider] - Forms: ED Department Discharge - My Orders Last 24 Hours: My Active Orders 03/18/18 16:37 Abdomen 1V Upright [CR] Stat - Assessment/Plan Last 24 Hours: My Active Orders 03/18/18 16:37 Abdomen 1V Upright [CR] Stat
--- NOTE | 2018-03-19 08:46 | CR ---
Abdomen 1V Upright CLINICAL HISTORY: Feeding tube placement FINDINGS: The bowel gas pattern is nonobstructive. No abnormal masses are noted. Patient is status po st the left upper quadrant and left mid abdominal surgery. The there is a feeding tube the which is p assed just below the diaphragmatic hiatus and is in the left upper quadrant. This may be within the g astric remanent. IMPRESSION: There is a small feeding tube passed just beyond the diaphragmatic hiatus into the left u pper quadrant likely within gastric remanent. Clinical correlation necessary
== END 2018-03-18 17:24 | disposition home or self-care (01) ==
LOC: JP.ED 15:47
DX: T85.598A Other mechanical complication of other gastrointestinal prosthetic devices, implants and grafts, initial encounter (principal); K21.9 Gastro-esophageal reflux disease without esophagitis; Z91.018 Allergy to other foods; Z88.5 Allergy status to narcotic agent; Z91.048 Other nonmedicinal substance allergy status; Z79.899 Other long term (current) drug therapy
CPT/HCPCS: 74018; 74018-26; 99283; 99284

== ENCOUNTER 2018-04-16 11:20 | Emergency (ER) | payer BC, MEDICAID ==
[2018-04-16 11:38] VITALS: BP 122/74
--- NOTE | 2018-04-16 11:58 | EDM.PDOC ---
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 She is oriented 3, vitals are stable and she has no focal neurologic issues. Onset: Sudden Duration: Hour(s): (Within the last hour) Associated Symptoms: Reports: Confusion, Malaise, Weakness, Other (Also some mild tenderness around her left port). Denies: Headaches left shoulder and abdomen Pain Score (Numeric/FACES): 5 - Related Data Allergies Allergy/AdvReac Type Severity Reaction Status Date / Time banana Allergy Severe Swollen Verified 04/16/18 11:37 Tongue walnut Allergy Intermediate Swollen Verified 04/16/18 11:37 Tongue mold Allergy Wheezing Verified 04/16/18 11:37 morphine Allergy Hives Verified 04/16/18 11:37 poison corine extract Allergy Rash Verified 04/16/18 11:37 pollen extracts Allergy Wheezing Verified 04/16/18 11:37 DUST Allergy Unknown Wheezing Uncoded 04/16/18 11:37 SMOKE AdvReac Intermediate Bronchospas Uncoded 04/16/18 11:37 ms Home Meds: Home Meds Montelukast [Singulair] 10 mg PO DAILY #30 tab 01/10/14 [Rx] Albuterol/Ipratropium [DuoNeb 3.0-0.5 MG/3 ML] 3 ml INH BID 12/07/15 [History] Budesonide/Formoterol Fumarate [Symbicort 160-4.5 Mcg Inhaler] 2 puff IH BID [History] Cyanocobalamin (Vitamin B-12) [Vitamin B-12] 500 mcg SL DAILY 11/09/16 [History] Lactobacillus Acidophilus [Probiotic] 1 each PO DAILY 11/09/16 [History] Levalbuterol Tartrate [Xopenex HFA] 2 puff INH Q4H PRN 11/09/16 [History] Levalbuterol HCl [Xopenex] 1.25 mg NEB Q6H PRN 11/30/16 [History] Scopolamine [Transderm-Scop] 1.5 mg TOP Q3D PRN #3 patch 02/19/17 [Rx] Escitalopram Oxalate 10 mg PO DAILY 04/28/17 [History] Cetirizine [ZyrTEC] 10 mg PO DAILY tablet 11/17/17 [Rx] Fluticasone Propionate [Flonase] 2 spray NASBOTH DAILY 12/14/17 [History] MV,Ca,Min/Iron Fum/FA/Vit K [Multi For Her Tablet] 1 tab PO DAILY 12/14/17 [ History] hydrALAZINE [Apresoline] 10 mg PO Q8H 12/14/17 [History] Acetaminophen [Tylenol] 650 mg PO Q6H PRN tablet 01/04/18 [Rx] DULoxetine [Cymbalta] 20 mg PO DAILY #90 cap 01/04/18 [Rx] ALPRAZolam [Xanax] 1 mg PO TID PRN 03/18/18 [History] Formoterol/Mometasone [Dulera 100 MCG/5 MCG] 2 puff INH BID 03/18/18 [History] L.acidoph,Paracasei, B.lactis [Probiotic] 1 tab PO DAILY 03/18/18 [History] LORazepam [Ativan] 1 mg PO TID PRN 03/18/18 [History] Lubiprostone [Amitiza] 24 mcg PO BID 03/18/18 [History] Omeprazole Magnesium [Prilosec Otc] 40 mg PO DAILY 03/18/18 [History] Ondansetron [Zofran ODT] 4 mg PO ASDIRECTED PRN 03/18/18 [History] Trimethobenzamide HCl 300 mg PO ASDIRECTED PRN 03/18/18 [History] Past Medical History HEENT History: Reports: Sinusitis, Other (See Below) Other HEENT History: TMJ. soften Palate. polyps on larynx Cardiovascular History: Reports: Heart Murmur, Other (See Below) Other Cardiovascular History: Mitral Valve Regurgitation. Left heart faliure "stiff" Respiratory History: Reports: Asthma, Bronchitis, Recurrent, COPD, Intubation, Previous, Pneumonia, Recurrent, Pneumothorax, Sleep Apnea, SOB, Other (See Below ) Other Respiratory History: polyp on larynx; intubated x2 after "quit breathing" . 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: Polycystic Ovaries, Musculoskeletal History: Reports: Back Pain, Chronic, Fracture, Fibromyalgia, Other (See Below) Other Musculoskeletal History: knee/ankle pain bilateral Neurological History: Reports: Concussion, Headaches, Chronic, Migraines, Seizure, Vertigo Psychiatric History: Reports: Anxiety, Depression, Eating Disorders, Mood Swings , Panic Attack Endocrine/Metabolic History: Reports: Obesity/BMI 30+, Vitamin D Deficiency, Other (See Below) Other Endocrine/Metabolic History: prediabetic/adrenal gland deficiency Hematologic History: Reports: Anemia, B12 Deficiency, Folic Acid Immunologic History: Reports: Other (See Below) Other Immunologic History: due to steriod use for medical reasons, "they" feel her immune system is compromised Oncologic (Cancer) History: Reports: None Dermatologic History: Reports: Cellulitis, Other (See Below) Other Dermatologic History: biopsy of face for moles - Infectious Disease History Infectious Disease History: Reports: Chicken Pox, Shingles Other Infectious Disease History: Viral meningitis - Past Surgical History Head Surgeries/Procedures: Reports: None HEENT Surgical History: Reports: LASIK, Oral Surgery Cardiovascular Surgical History: Reports: Other (See Below) Other Cardiovascular Surgeries/Procedures: angiogram Respiratory Surgical History: Reports: None GI Surgical History: Reports: Cholecystectomy, EGD, Esophageal Dilatation, Hernia Repair/Other, Nigel Fundoplication, Other (See Below) Other GI Surgeries/Procedures: full gastroectomy. feeding tube Female Surgical History: Reports: Section, Tubal Ligation Endocrine Surgical History: Reports: None Neurological Surgical History: Reports: None Musculoskeletal Surgical History: Reports: None Dermatological Surgical History: Reports: Skin Biopsy Social & Family History - Family History Family Medical History: Noncontributory Cardiac: Reports: Pacemaker Respiratory: Reports: Asthma, COPD, Other (See Below) Other Respiratory Family Hisory: bronchitis GI: Reports: Irritable Bowel Syndrome OBGYN: Reports: Musculoskeletal: Reports: Arthritis Neurological: Reports: Cerebral Aneurysms Psychiatric: Reports: Anxiety, Depression Endocrine/Metabolic: Reports: Diabetes, type II, Hypothyroidism, Obesity/MBI 30+ , Vitamin D Deficiency Hematologic: Reports: B12 Deficiency Immunologic: Reports: None Oncologic: Reports: Brain, Lung, Skin - Tobacco Use Smoking Status *Q: Never Smoker - Caffeine Use Caffeine Use: Reports: Coffee Other Caffeine Use: 2 cups coffee per day and 1-2 sodas Caffeine Use Comment: 2-3 cups daily - Recreational Drug Use Recreational Drug Use: No - Living Situation & Occupation Living situation: Reports: , with Family Occupation: Employed ED ROS GENERAL - Review of Systems Review Of Systems: See Below Constitutional: Denies: Fever, Chills Respiratory: Denies: Shortness of Breath GI/Abdominal: Denies: Nausea, Vomiting Neurological: Reports: Dizziness, Paresthesia, Weakness Psychiatric: Reports: Anxiety ED EXAM, GENERAL - Physical Exam Exam: See Below Exam Limited By: No Limitations General Appearance: Alert, No Apparent Distress Eye Exam: Bilateral Eye: EOMI (Normal hydration) Nose: Other (Feeding tube is in the left nares) Throat/Mouth: Normal Inspection Neck: Supple Respiratory/Chest: No Respiratory Distress, Lungs Clear Cardiovascular: Regular Rate, Rhythm. No: Tachycardia GI/Abdominal: Soft, Non-Tender Neurological: Alert, Oriented Psychiatric: Depressed Mood, Flat Affect Skin Exam: Warm, Dry Course - Vital Signs Last Recorded V/S: Last Vital Signs Temp 98.1 F 04/16/18 11:28 Pulse 88 04/16/18 11:28 Resp 14 04/16/18 11:28 BP 122/74 04/16/18 11:28 Pulse Ox 100 04/16/18 11:28 - Orders/Labs/Meds Labs: Laboratory Tests 04/16/18 04/16/18 Range/Units 12:15 12:15 WBC 4.2 L (4.5-11.0) K/uL RBC 3.81 (3.30-5.50) M/uL Hgb 11.3 L (12.0-15.0) g/dL Hct 34.1 L (36.0-48.0) % MCV 90 (80-98) fL MCH 30 (27-31) pg MCHC 33 (32-36) % Plt Count 247 (150-400) K/uL Neut % (Auto) 52 (36-66) % Lymph % (Auto) 37 (24-44) % [place] % (Auto) 7 H (2-6) % Eos % (Auto) 4 (2-4) % Baso % (Auto) 1 (0-1) % Sodium 142 (140-148) mmol/L Potassium 4.1 (3.6-5.2) mmol/L Chloride 107 (100-108) mmol/L Carbon Dioxide 28 (21-32) mmol/L Anion Gap 7.4 (5.0-14.0) mmol/L BUN 11 (7-18) mg/dL Creatinine 0.5 L (0.6-1.0) mg/dL Est Cr Clr Drug Dosing 138.61 mL/min Estimated GFR (MDRD) > 60 (>60) Glucose 85 (74-106) mg/dL Calcium 8.6 (8.5-10.1) mg/dL - Re-Assessments/Exams Free Text/Narrative Re-Assessment/Exam: 04/16/18 12:26 CBC and BMP are obtained, if normal she'll be sent over to the infusion center for her normal IV fluids. This was likely just anxiety related or generalized malaise. 04/16/18 12:40 Lab work returned reassuring, white count was 4200 and hemoglobin was near normal. Electrolytes were all normal, kidney function excellent, glucose normal. Patient was discharged to outpatient procedure infusion center to get her IV hydration. Departure - Departure Time of Disposition: 12:45 Disposition: Home, Self-Care 01 Condition: Good Clinical Impression: Paresthesias, Weakness generalized - Discharge Information Instructions: Paresthesia, [id number] Referrals: Abran Roca Sr, MD [Primary Care Provider] - Forms: ED Department Discharge Care Plan Goals: Receive IV infusions as planned. Continue current medications and return anytime if worsening, or consider rechecking in 24-48 hours if not improving satisfactorily.
== END 2018-04-16 12:46 | disposition home or self-care (01) ==
LOC: JP.ED 11:20
DX: R20.2 Paresthesia of skin (principal); R53.1 Weakness; F41.9 Anxiety disorder, unspecified; F32.9 Major depressive disorder, single episode, unspecified; Z79.899 Other long term (current) drug therapy; Z91.09 Other allergy status, other than to drugs and biological substances; Z91.018 Allergy to other foods; Z88.5 Allergy status to narcotic agent
CPT/HCPCS: 36415; 80048; 85025; 99284

== ENCOUNTER 2018-11-28 17:19 | Emergency (ER) | payer BC ==
[2018-11-28 17:42] VITALS: BP 116/77
--- NOTE | 2018-11-28 18:21 | EDM.PDOC ---
ED HPI GENERAL MEDICAL PROBLEM - General Chief Complaint: Abdominal Pain Stated Complaint: PAIN IN ABDOMEN Time Seen by Provider: 11/28/18 18:05 Source of Information: Reports: Patient History Limitations: Reports: No Limitations - History of Present Illness INITIAL COMMENTS - FREE TEXT/NARRATIVE: 43-year-old female with chronic abdominal pain, was recently discharged from [place] after workup discovered elevated liver enzymes and dehydration. She was to get some fluids this week but was unable to get there, she has had diarrhea 6 times today. Some abdominal cramping but no fevers or chills, no vomiting. She's not only interested in obtaining some fluids and vitamins but would like her liver enzymes rechecked. Onset: Unknown/Unsure Associated Symptoms: Reports: Malaise, Weakness, Other (Diarrhea). Denies: Cough, Fever/Chills Upper Abdominal Pain Score (Numeric/FACES): 6 - Related Data Allergies Allergy/AdvReac Type Severity Reaction Status Date / Time banana Allergy Severe Swollen Verified 11/28/18 17:56 Tongue walnut Allergy Intermediate Swollen Verified 11/28/18 17:56 Tongue mold Allergy Wheezing Verified 11/28/18 17:56 morphine Allergy Hives Verified 11/28/18 17:56 poison corine extract Allergy Rash Verified 11/28/18 17:56 pollen extracts Allergy Wheezing Verified 11/28/18 17:56 DUST Allergy Unknown Wheezing Uncoded 11/28/18 17:56 SMOKE AdvReac Intermediate Bronchospas Uncoded 11/28/18 17:56 ms Home Meds: Home Meds Montelukast [Singulair] 10 mg PO DAILY #30 tab 01/10/14 [Rx] Albuterol/Ipratropium [DuoNeb 3.0-0.5 MG/3 ML] 3 ml INH BID 12/07/15 [History] Budesonide/Formoterol Fumarate [Symbicort 160-4.5 Mcg Inhaler] 2 puff IH BID [History] Cyanocobalamin (Vitamin B-12) [Vitamin B-12] 500 mcg SL DAILY 11/09/16 [History] Lactobacillus Acidophilus [Probiotic] 1 each PO DAILY 11/09/16 [History] Levalbuterol Tartrate [Xopenex HFA] 2 puff INH Q4H PRN 11/09/16 [History] Levalbuterol HCl [Xopenex] 1.25 mg NEB Q6H PRN 11/30/16 [History] Scopolamine [Transderm-Scop] 1.5 mg TOP Q3D PRN #3 patch 02/19/17 [Rx] Cetirizine [ZyrTEC] 10 mg PO DAILY tablet 11/17/17 [Rx] Fluticasone Propionate [Flonase] 2 spray NASBOTH DAILY 12/14/17 [History] MV,Ca,Min/Iron Fum/FA/Vit K [Multi For Her Tablet] 1 tab PO DAILY 12/14/17 [ History] hydrALAZINE [Apresoline] 10 mg PO Q8H PRN 12/14/17 [History] Acetaminophen [Tylenol] 650 mg PO Q6H PRN tablet 01/04/18 [Rx] DULoxetine [Cymbalta] 20 mg PO DAILY #90 cap 01/04/18 [Rx] ALPRAZolam [Xanax] 1 mg PO TID PRN 03/18/18 [History] Formoterol/Mometasone [Dulera 100 MCG/5 MCG] 2 puff INH BID 03/18/18 [History] LORazepam [Ativan] 1 mg PO TID PRN 03/18/18 [History] Omeprazole Magnesium [Prilosec Otc] 40 mg PO DAILY 03/18/18 [History] Ondansetron [Zofran ODT] 4 mg PO ASDIRECTED PRN 03/18/18 [History] Lipase/Protease/Amylase [Pancrel[place] Dr 10,500 Unit Cap] 1 tab PO TID 11/28/18 [ History] Past Medical History HEENT History: Reports: Sinusitis, Other (See Below) Other HEENT History: TMJ. soften Palate. polyps on larynx Cardiovascular History: Reports: Heart Murmur, Other (See Below) Other Cardiovascular History: Mitral Valve Regurgitation. Left heart faliure "stiff" Respiratory History: Reports: Asthma, Bronchitis, Recurrent, COPD, Intubation, Previous, Pneumonia, Recurrent, Pneumothorax, Sleep Apnea, SOB, Other (See Below ) Other Respiratory History: polyp on larynx; intubated x2 after "quit breathing" . 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: Polycystic Ovaries, Musculoskeletal History: Reports: Back Pain, Chronic, Fracture, Fibromyalgia, Other (See Below) Other Musculoskeletal History: knee/ankle pain bilateral Neurological History: Reports: Concussion, Headaches, Chronic, Migraines, Seizure, Vertigo Psychiatric History: Reports: Anxiety, Depression, Eating Disorders, Mood Swings , Panic Attack Endocrine/Metabolic History: Reports: Obesity/BMI 30+, Vitamin D Deficiency, Other (See Below) Other Endocrine/Metabolic History: prediabetic/adrenal gland deficiency Hematologic History: Reports: Anemia, B12 Deficiency, Folic Acid Immunologic History: Reports: Other (See Below) Other Immunologic History: due to steriod use for medical reasons, "they" feel her immune system is compromised Oncologic (Cancer) History: Reports: None Dermatologic History: Reports: Cellulitis, Other (See Below) Other Dermatologic History: biopsy of face for moles - Infectious Disease History Infectious Disease History: Reports: Chicken Pox Other Infectious Disease History: Viral meningitis - Past Surgical History Head Surgeries/Procedures: Reports: None HEENT Surgical History: Reports: LASIK, Oral Surgery Cardiovascular Surgical History: Reports: Other (See Below) Other Cardiovascular Surgeries/Procedures: angiogram Respiratory Surgical History: Reports: None GI Surgical History: Reports: Cholecystectomy, EGD, Esophageal Dilatation, Hernia Repair/Other, Nigel Fundoplication Female Surgical History: Reports: Section, Tubal Ligation Endocrine Surgical History: Reports: None Neurological Surgical History: Reports: None Musculoskeletal Surgical History: Reports: None, Other (See Below) Other Musculoskeletal Surgeries/Procedures:: port l chest Dermatological Surgical History: Reports: Skin Biopsy Social & Family History - Family History Family Medical History: Noncontributory Cardiac: Reports: Pacemaker Respiratory: Reports: Asthma, COPD, Other (See Below) Other Respiratory Family Hisory: bronchitis GI: Reports: Irritable Bowel Syndrome OBGYN: Reports: Musculoskeletal: Reports: Arthritis Neurological: Reports: Cerebral Aneurysms Psychiatric: Reports: Anxiety, Depression Endocrine/Metabolic: Reports: Diabetes, type II, Hypothyroidism, Obesity/MBI 30+ , Vitamin D Deficiency Hematologic: Reports: B12 Deficiency Immunologic: Reports: None Oncologic: Reports: Brain, Lung, Skin - Tobacco Use Smoking Status *Q: Never Smoker Second Hand Smoke Exposure: No - Caffeine Use Caffeine Use: Reports: Coffee Other Caffeine Use: 2 cups coffee per day and 1-2 sodas Caffeine Use Comment: 2-3 cups daily - Recreational Drug Use Recreational Drug Use: No - Living Situation & Occupation Living situation: Reports: , with Family Occupation: Employed ED ROS GENERAL - Review of Systems Review Of Systems: See Below Constitutional: Reports: Decreased Appetite. Denies: Fever HEENT: Reports: Other (History of vocal cord dysfunction, currently stable) Respiratory: Denies: Shortness of Breath Cardiovascular: Denies: Chest Pain, Palpitations GI/Abdominal: Reports: Abdominal Pain, Diarrhea, Nausea. Denies: Hematochezia : Reports: No Symptoms Skin: Reports: No Symptoms Neurological: Reports: Weakness ED EXAM, GI/ABD - Physical Exam Exam: See Below Exam Limited By: No Limitations General Appearance: Alert, No Apparent Distress Eyes: Bilateral: Normal Appearance (No jaundice) Respiratory/Chest: No Respiratory Distress, Lungs Clear Cardiovascular: Regular Rate, Rhythm. No: Tachycardia GI/Abdominal Exam: Normal Bowel Sounds, Soft, Tender (Mild tenderness with palpation diffusely, no focal pain or guarding) Course - Vital Signs Last Recorded V/S: Last Vital Signs Temp 95.6 F 11/28/18 18:11 Pulse 80 11/28/18 18:11 Resp 16 11/28/18 18:11 BP 116/77 11/28/18 18:11 Pulse Ox 100 11/28/18 18:11 - Orders/Labs/Meds Orders: Active Orders 24 hr Category Date Time Status MVI, Adult with Vitamin K [Infuvite Adult] 10 ml Med 11/28/18 18:30 Active Thiamine [Vitamin B-1] 100 mg Folic Acid 1 mg Magnesium Sulfate [Magnesium Sulfate 50%] 3 gm Sodium Chloride 0.9% [Normal Saline] 1,000 ml IV ASDIRECTED Medication Orders Multivitamins/Minerals 10 ml/Thiamine HCl 100 mg/ Folic Acid 1 mg/ Magnesium Sulfate 3 gm/ Sodium Chloride 1,017.2 mls @ 1,000 mls/hr IV ASDIRECTED ALEX Last Admin: 11/28/18 18:49 Dose: 1,000 mls/hr Labs: Laboratory Tests 11/28/18 11/28/18 Range/Units 18:18 18:18 WBC 4.6 (4.5-11.0) K/uL RBC 3.80 (3.30-5.50) M/uL Hgb 11.3 L (12.0-15.0) g/dL Hct 34.4 L (36.0-48.0) % MCV 91 (80-98) fL MCH 30 (27-31) pg MCHC 33 (32-36) % Plt Count 222 (150-400) K/uL Neut % (Auto) 51 (36-66) % Lymph % (Auto) 39 (24-44) % [place] % (Auto) 7 H (2-6) % Eos % (Auto) 4 (2-4) % Baso % (Auto) 0 (0-1) % Sodium 141 (140-148) mmol/L Potassium 3.8 (3.6-5.2) mmol/L Chloride 107 (100-108) mmol/L Carbon Dioxide 27 (21-32) mmol/L Anion Gap 7.3 (5.0-14.0) mmol/L BUN 18 D (7-18) mg/dL Creatinine 0.5 L (0.6-1.0) mg/dL Est Cr Clr Drug Dosing 134.55 mL/min Estimated GFR (MDRD) > 60 (>60) Glucose 87 (74-106) mg/dL Calcium 8.4 L (8.5-10.1) mg/dL Total Bilirubin 0.3 (0.2-1.0) mg/dL AST 12 L (15-37) U/L ALT 40 (12-78) U/L Alkaline Phosphatase 100 (46-116) U/L Total Protein 6.1 L (6.4-8.2) g/dL Albumin 3.2 L (3.4-5.0) g/dL Globulin 2.9 (2.3-3.5) g/dL Albumin/Globulin Ratio 1.1 L (1.2-2.2) Meds: Medications Generic Name Dose Route Start Last Admin Trade Name Freq PRN Reason Stop Dose Admin Multivitamins/Minerals 10 ml/ 1,017.2 mls @ 1,000 mls/hr 11/28/18 18:30 11/28 18:49 Thiamine HCl 100 mg/ Folic IV 1,000 mls/hr Acid 1 mg/ Magnesium Sulfate 3 ASDIRECTED ALEX Administration gm/ Sodium Chloride Discontinued Medications Generic Name Dose Route Start Last Admin Trade Name Freq PRN Reason Stop Dose Admin Hydromorphone HCl 0.5 mg 11/28/18 18:58 11/28/18 19:12 Dilaudid IVPUSH 11/28/18 18:59 0.5 mg ONETIME ONE Administration Ondansetron HCl 4 mg 11/28/18 18:58 11/28/18 19:10 Zofran IVPUSH 11/28/18 18:59 4 mg ONETIME ONE Administration - Re-Assessments/Exams Free Text/Narrative Re-Assessment/Exam: 11/28/18 18:21 1 L of banana bag will be given over one hour, CBC and CMP were obtained. 11/28/18 19:22 CBC and CMP were generally normal, liver enzymes are now within normal limits. Patient was given 4 mg of IV Zofran and 0.5 mg of IV Dilaudid along with the banana bag. She was discharged to follow-up with her primary providers as scheduled. Departure - Departure Time of Disposition: 19:47 Disposition: Home, Self-Care 01 Condition: Good Clinical Impression: Weakness Nausea and vomiting Qualifiers: Vomiting type: unspecified Vomiting Intractability: non-intractable Qualified Code(s): R11.2 - Nausea with vomiting, unspecified - Discharge Information Instructions: Nausea and Vomiting, Adult Referrals: PCP,None [Primary Care Provider] - Forms: ED Department Discharge Care Plan Goals: Continue your current medications and maintain hydration with frequent small amounts of fluid. Recheck with your regular doctors as scheduled. - My Orders Last 24 Hours: My Active Orders 11/28/18 18:30 MVI, Adult with Vitamin K [Infuvite Adult] 10 ml Thiamine [Vitamin B-1] 100 mg Folic Acid 1 mg Magnesium Sulfate [Magnesium Sulfate 50%] 3 gm Sodium Chloride 0.9% [Normal Saline] 1,000 ml IV ASDIRECTED - Assessment/Plan Last 24 Hours: My Active Orders 11/28/18 18:30 MVI, Adult with Vitamin K [Infuvite Adult] 10 ml Thiamine [Vitamin B-1] 100 mg Folic Acid 1 mg Magnesium Sulfate [Magnesium Sulfate 50%] 3 gm Sodium Chloride 0.9% [Normal Saline] 1,000 ml IV ASDIRECTED
[2018-11-28] MEDS ORDERED: MVI, Adult with Vitamin K 10 ML, Thiamine 100 MG, Folic Acid 1 MG, Magnesium Sulfate 3 ... IV SCH ×5 (18:30)
[2018-11-28] MEDS ORDERED: HYDROmorphone 0.5 MG/0.5 ML Syringe IVPUSH ONE (18:58)
[2018-11-28] MEDS ORDERED: Ondansetron 4 MG/2 ML SDV IVPUSH ONE (18:58)
== END 2018-11-28 20:02 | disposition home or self-care (01) ==
LOC: JP.ED 17:19
DX: R11.2 Nausea with vomiting, unspecified (principal); R53.1 Weakness; J45.909 Unspecified asthma, uncomplicated; Z91.018 Allergy to other foods; Z88.8 Allergy status to other drugs, medicaments and biological substances; Z79.899 Other long term (current) drug therapy
CPT/HCPCS: 36415; 80053; 85025; 96365; 96375; 99284; J1170; J1642; J2405; J3411; J3475; J7030; J3490

== ENCOUNTER 2018-12-25 18:38 | Emergency (ER) | payer BC ==
[2018-12-25] MEDS ORDERED: Ondansetron 4 MG/2 ML SDV IVPUSH ONE (19:39)
[2018-12-25] MEDS ORDERED: Lactated Ringers 1,000 ML IV SCH (19:45)
[2018-12-25] MEDS ORDERED: HYDROmorphone 0.5 MG/0.5 ML Syringe IVPUSH ONE ×2 (19:45→20:24)
--- NOTE | 2018-12-25 19:51 | EDM.PDOC ---
ED HPI GENERAL MEDICAL PROBLEM - General Chief Complaint: Abdominal Pain Stated Complaint: STOMACH PAIN Time Seen by Provider: 12/25/18 19:35 Source of Information: Reports: Patient, Old Records, RN History Limitations: Reports: No Limitations - History of Present Illness INITIAL COMMENTS - FREE TEXT/NARRATIVE: 43 yo female with a pHx of many abdominal surgeries presents with onset about 12 hrs ago of low central abdominal pain with nausea/vomiting that has progressed. She states it feels somewhat like when she had a bowel obstruction. No fever or bleeding. BM's this am were a little harder than normal. Has had her gallbladder out, but not her appendix. Pain is constant. Took oral Zofran at home without relief. Onset: Today Onset Date: 12/25/18 Onset Time: 08:00 Duration: Hour(s): (12), Constant, Getting Worse Location: Reports: Abdomen Quality: Reports: Ache Severity: Moderate Improves with: Reports: None Worsens with: Reports: Other (time) Context: Reports: Other (see HPI) Associated Symptoms: Reports: Nausea/Vomiting, Other (pain with urination, not dysuria/burning-more in the lower abdomen.). 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 (see below) (Zofran ODT 4 mg SL) Abdominal Pain Score (Numeric/FACES): 8 - Related Data Allergies Allergy/AdvReac Type Severity Reaction Status Date / Time banana Allergy Severe Swollen Verified 12/25/18 19:28 Tongue walnut Allergy Intermediate Swollen Verified 12/25/18 19:28 Tongue mold Allergy Wheezing Verified 12/25/18 19:28 morphine Allergy Hives Verified 12/25/18 19:28 poison corine extract Allergy Rash Verified 12/25/18 19:28 pollen extracts Allergy Wheezing Verified 12/25/18 19:28 DUST Allergy Unknown Wheezing Uncoded 12/25/18 19:28 SMOKE AdvReac Intermediate Bronchospas Uncoded 12/25/18 19:28 ms Home Meds: Home Meds Montelukast [Singulair] 10 mg PO DAILY #30 tab 01/10/14 [Rx] Albuterol/Ipratropium [DuoNeb 3.0-0.5 MG/3 ML] 3 ml INH BID 12/07/15 [History] Budesonide/Formoterol Fumarate [Symbicort 160-4.5 Mcg Inhaler] 2 puff IH BID [History] Cyanocobalamin (Vitamin B-12) [Vitamin B-12] 500 mcg SL DAILY 11/09/16 [History] Lactobacillus Acidophilus [Probiotic] 1 each PO DAILY 11/09/16 [History] Levalbuterol Tartrate [Xopenex HFA] 2 puff INH Q4H PRN 11/09/16 [History] Levalbuterol HCl [Xopenex] 1.25 mg NEB Q6H PRN 11/30/16 [History] Scopolamine [Transderm-Scop] 1.5 mg TOP Q3D PRN #3 patch 02/19/17 [Rx] Cetirizine [ZyrTEC] 10 mg PO DAILY tablet 11/17/17 [Rx] Fluticasone Propionate [Flonase] 2 spray NASBOTH DAILY 12/14/17 [History] MV,Ca,Min/Iron Fum/FA/Vit K [Multi For Her Tablet] 1 tab PO DAILY 12/14/17 [ History] hydrALAZINE [Apresoline] 10 mg PO Q8H PRN 12/14/17 [History] Acetaminophen [Tylenol] 650 mg PO Q6H PRN tablet 01/04/18 [Rx] DULoxetine [Cymbalta] 20 mg PO DAILY #90 cap 01/04/18 [Rx] ALPRAZolam [Xanax] 1 mg PO TID PRN 03/18/18 [History] Formoterol/Mometasone [Dulera 100 MCG/5 MCG] 2 puff INH BID 03/18/18 [History] LORazepam [Ativan] 1 mg PO TID PRN 03/18/18 [History] Omeprazole Magnesium [Prilosec Otc] 40 mg PO DAILY 03/18/18 [History] Ondansetron [Zofran ODT] 4 mg PO ASDIRECTED PRN 03/18/18 [History] Lipase/Protease/Amylase [Roseann Apodaca 10,500 Unit Cap] 1 tab PO TID 11/28/18 [ History] Past Medical History HEENT History: Reports: Sinusitis, Other (See Below) Other HEENT History: TMJ. soften Palate. polyps on larynx Cardiovascular History: Reports: Heart Murmur, Other (See Below) Other Cardiovascular History: Mitral Valve Regurgitation. Left heart faliure "stiff" Respiratory History: Reports: Asthma, Bronchitis, Recurrent, COPD, Intubation, Previous, Pneumonia, Recurrent, Pneumothorax, Sleep Apnea, SOB, Other (See Below ) Other Respiratory History: polyp on larynx; intubated x2 after "quit breathing" . 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: Reports: Polycystic Ovaries, Musculoskeletal History: Reports: Back Pain, Chronic, Fracture, Fibromyalgia, Other (See Below) Other Musculoskeletal History: knee/ankle pain bilateral Neurological History: Reports: Concussion, Headaches, Chronic, Migraines, Seizure, Vertigo Psychiatric History: Reports: Anxiety, Depression, Eating Disorders, Mood Swings , Panic Attack Endocrine/Metabolic History: Reports: Obesity/BMI 30+, Vitamin D Deficiency, Other (See Below) Other Endocrine/Metabolic History: prediabetic/adrenal gland deficiency Hematologic History: Reports: Anemia, B12 Deficiency, Blood Transfusion(s), Folic Acid, Iron Deficiency Immunologic History: Reports: Other (See Below) Other Immunologic History: due to steriod use for medical reasons, "they" feel her immune system is compromised Oncologic (Cancer) History: Reports: None Dermatologic History: Reports: Cellulitis, Other (See Below) Other Dermatologic History: biopsy of face for moles - Infectious Disease History Infectious Disease History: Reports: Chicken Pox, Influenza, Shingles Other Infectious Disease History: Viral meningitis - Past Surgical History Head Surgeries/Procedures: Reports: None HEENT Surgical History: Reports: LASIK, Oral Surgery Cardiovascular Surgical History: Reports: Other (See Below) Other Cardiovascular Surgeries/Procedures: angiogram Respiratory Surgical History: Reports: None GI Surgical History: Reports: Cholecystectomy, EGD, Esophageal Dilatation, Hernia Repair/Other, Nigel Fundoplication Female Surgical History: Reports: Section, Tubal Ligation Endocrine Surgical History: Reports: None Neurological Surgical History: Reports: None Musculoskeletal Surgical History: Reports: None, Other (See Below) Other Musculoskeletal Surgeries/Procedures:: port l chest Dermatological Surgical History: Reports: Skin Biopsy Social & Family History - Family History Family Medical History: Noncontributory Cardiac: Reports: Pacemaker Respiratory: Reports: Asthma, COPD, Other (See Below) Other Respiratory Family Hisory: bronchitis GI: Reports: Irritable Bowel Syndrome OBGYN: Reports: Musculoskeletal: Reports: Arthritis Neurological: Reports: Cerebral Aneurysms Psychiatric: Reports: Anxiety, Depression Endocrine/Metabolic: Reports: Diabetes, type II, Hypothyroidism, Obesity/MBI 30+ , Vitamin D Deficiency Hematologic: Reports: B12 Deficiency Immunologic: Reports: None Oncologic: Reports: Brain, Lung, Skin - Tobacco Use Smoking Status *Q: Never Smoker - Caffeine Use Caffeine Use: Reports: Coffee Other Caffeine Use: 2 cups coffee per day and 1-2 sodas Caffeine Use Comment: 2-3 cups daily - Recreational Drug Use Recreational Drug Use: No - Living Situation & Occupation Living situation: Reports: , with Family Occupation: Employed ED ROS GENERAL - Review of Systems Review Of Systems: See Below Constitutional: Reports: No Symptoms HEENT: Reports: No Symptoms Respiratory: Reports: No Symptoms Cardiovascular: Reports: No Symptoms Endocrine: Reports: No Symptoms GI/Abdominal: Reports: Abdominal Pain, Nausea, Vomiting. Denies: Black Stool, Bloody Stool, Constipation, Diarrhea, Decreased Appetite, Distension, Flatus, Hematemesis, Hematochezia, Melena : Reports: Pain (low abdomen with urination). Denies: Dysuria, Flank Pain, Hematuria Musculoskeletal: Reports: No Symptoms Skin: Reports: No Symptoms Neurological: Reports: No Symptoms Psychiatric: Reports: No Symptoms ED EXAM, GI/ABD - Physical Exam Exam: See Below Exam Limited By: No Limitations General Appearance: Alert, WD/WN, Mild Distress Eyes: Bilateral: Normal Appearance Ears: Normal External Exam, Normal Canal, Hearing Grossly Normal, Normal TMs Nose: Normal Inspection, No Blood Throat/Mouth: Normal Inspection, Normal Lips, Normal Oropharynx, Normal Voice, No Airway Compromise Head: Atraumatic, Normocephalic Neck: Normal Inspection Respiratory/Chest: No Respiratory Distress, Lungs Clear, Normal Breath Sounds, No Accessory Muscle Use Cardiovascular: Regular Rate, Rhythm, No Edema GI/Abdominal Exam: Soft, No Distention, Abnormal Bowel Sounds (decreased), Other (diffuse tenderness, worse in the central and L lateral abdomen.). No: Non-Tender, Distended, Guarding, Rigid, Rebound, Tender Back Exam: Normal Inspection. No: CVA Tenderness (R), CVA Tenderness (L) Extremities: Normal Inspection, Normal Range of Motion, Non-Tender, No Pedal Edema Neurological: Alert, Oriented, CN II-XII Intact, Normal Cognition, No Motor/ Sensory Deficits Psychiatric: Normal Affect, Normal Mood Skin Exam: Warm, Dry, Intact, Normal Color, No Rash Course - Vital Signs Last Recorded V/S: Last Vital Signs Temp 35.3 C 12/25/18 19:26 Pulse 75 12/25/18 21:38 Resp 16 12/25/18 21:38 BP 135/88 12/25/18 21:38 Pulse Ox 91 L 12/25/18 21:38 - Orders/Labs/Meds Orders: Active Orders 24 hr Category Date Time Status Iopamidol [Isovue-300 (61%)] Med 12/25/18 20:00 Active 124 ml IV . DIRECTED Lactated Ringers [Ringers, Lactated] 1,000 ml Med 12/25/18 19:45 Active IV ASDIRECTED Sodium Chloride 0.9% [Normal Saline] 80 ml Med 12/25/18 20:00 Active IV ASDIRECTED Sodium Chloride 0.9% [Saline Flush] Med 12/25/18 19:56 Active 10 ml FLUSH ASDIRECTED PRN Medication Orders Lactated Ringer's (Ringers, Lactated) 1,000 mls @ 500 mls/hr IV ASDIRECTED [facility] Last Admin: 12/25/18 20:02 Dose: 500 mls/hr Sodium Chloride (Normal Saline) 80 mls @ 3 mls/sec IV ASDIRECTED ALEX Last Admin: 12/25/18 20:13 Dose: 3 mls/sec Iopamidol (Isovue-300 (61%)) 124 ml IV . DIRECTED [facility] Last Admin: 12/25/18 20:13 Dose: 124 ml Sodium Chloride (Saline Flush) 10 ml FLUSH ASDIRECTED PRN PRN Reason: Keep Vein Open Last Admin: 12/25/18 20:12 Dose: 10 ml Admin: 12/25/18 20:04 Dose: 10 ml Labs: Laboratory Tests 12/25/18 12/25/18 12/25/18 Range/Units 19:27 19:44 19:44 WBC 4.2 L (4.5-11.0) K/uL RBC 3.44 (3.30-5.50) M/uL Hgb 10.0 L (12.0-15.0) g/dL Hct 31.3 L (36.0-48.0) % MCV 91 (80-98) fL MCH 29 (27-31) pg MCHC 32 (32-36) % Plt Count 228 (150-400) K/uL Sodium 141 (140-148) mmol/L Potassium 4.1 (3.6-5.2) mmol/L Chloride 106 (100-108) mmol/L Carbon Dioxide 25 (21-32) mmol/L Anion Gap 9.8 (5.0-14.0) mmol/L BUN 12 (7-18) mg/dL Creatinine 0.6 (0.6-1.0) mg/dL Est Cr Clr Drug Dosing 114.34 mL/min Estimated GFR (MDRD) > 60 (>60) Glucose 97 (74-106) mg/dL Calcium 8.3 L (8.5-10.1) mg/dL Urine Color Yellow Urine Appearance Clear Urine pH 7.0 (4.5-8.0) Ur Specific [place] 1.005 L (1.008-1.030) Urine Protein Negative (NEGATIVE) mg/dL Urine Glucose (UA) Normal (NEGATIVE) mg/dL Urine Ketones Negative (NEGATIVE) mg/dL Urine Occult Blood Trace (NEGATIVE) Urine Nitrite Negative (NEGATIVE) Urine Bilirubin Small (NEGATIVE) Urine Urobilinogen 1 (NORMAL) mg/dL Ur Leukocyte Esterase Negative (NEGATIVE) Urine RBC 0-5 (0-5) Urine WBC 0-5 (0-5) Ur Epithelial Cells Rare Amorphous Sediment Rare Urine Bacteria Not seen Urine Mucus Rare Meds: Medications Generic Name Dose Route Start Last Admin Trade Name Julius PRN Reason Stop Dose Admin Lactated Ringer's 1,000 mls @ 500 mls/hr 12/25/18 19:45 12/25/18 20:02 Ringers, Lactated IV 500 mls/hr ASDIRECTED ALEX Administration Sodium Chloride 80 mls @ 3 mls/sec 12/25/18 20:00 12/25/18 20:13 Normal Saline IV 3 mls/sec ASDIRECTED ALEX Administration Iopamidol 124 ml 12/25/18 20:00 12/25/18 20:13 Isovue-300 (61%) IV 124 ml . DIRECTED ALEX Administration Sodium Chloride 10 ml 12/25/18 19:56 12/25/18 20:12 Saline Flush FLUSH 10 ml ASDIRECTED PRN Administration Keep Vein Open Discontinued Medications Generic Name Dose Route Start Last Admin Trade Name Julius PRN Reason Stop Dose Admin Hydromorphone HCl 0.5 mg 12/25/18 19:45 12/25/18 20:03 Dilaudid IVPUSH 12/25/18 19:46 0.5 mg ONETIME ONE Administration Hydromorphone HCl 0.5 mg 12/25/18 20:24 12/25/18 20:31 Dilaudid IVPUSH 12/25/18 20:25 0.5 mg ONETIME ONE Administration Acetaminophen 1,000 mg/ Premix 100 mls @ 400 mls/hr 12/25/18 21:05 IV 12/25/18 21:19 NOW ONE Ketorolac Tromethamine 30 mg 12/25/18 21:18 12/25/18 21:28 Toradol IVPUSH 12/25/18 21:19 30 mg ONETIME ONE Administration Ondansetron HCl 4 mg 12/25/18 19:39 12/25/18 20:03 Zofran IVPUSH 12/25/18 19:40 4 mg ONETIME ONE Administration - Radiology Interpretation Free Text/Narrative:: abd/pelvis CT with IV contrast-2 mm kidney stone at L UVJ CT Results Date: 12/25/18 Departure - Departure Time of Disposition: 22:10 Disposition: Home, Self-Care 01 Condition: Fair Clinical Impression: Ureterolithiasis - Discharge Information *PRESCRIPTION DRUG MONITORING PROGRAM REVIEWED*: No *COPY OF PRESCRIPTION DRUG MONITORING REPORT IN PATIENT ZOEY: No Instructions: Kidney Stones, [id number] Referrals: Abran Roca Sr, MD [Primary Care Provider] - Forms: ED Department Discharge Additional Instructions: Strain your urine and save any sediment. Drink ample amounts of water so your urine is light yellow. Turn your stone in to your doctor for testing. Take ibuprofen 600 mg every 6 hrs with food for pain relief, next dose after 3 am tonight. In addition you can take either acetaminophen for mild pain or [place] for more severe pain. Take Zofran as needed for nausea control. Recheck as needed. No driving tonight. - My Orders Last 24 Hours: My Active Orders 12/25/18 19:45 Lactated Ringers [Ringers, Lactated] 1,000 ml IV ASDIRECTED 12/25/18 19:56 Sodium Chloride 0.9% [Saline Flush] 10 ml FLUSH ASDIRECTED PRN 12/25/18 20:00 Iopamidol [Isovue-300 (61%)] 124 ml IV . DIRECTED Sodium Chloride 0.9% [Normal Saline] 80 ml IV ASDIRECTED - Assessment/Plan Last 24 Hours: My Active Orders 12/25/18 19:45 Lactated Ringers [Ringers, Lactated] 1,000 ml IV ASDIRECTED 12/25/18 19:56 Sodium Chloride 0.9% [Saline Flush] 10 ml FLUSH ASDIRECTED PRN 12/25/18 20:00 Iopamidol [Isovue-300 (61%)] 124 ml IV . DIRECTED Sodium Chloride 0.9% [Normal Saline] 80 ml IV ASDIRECTED
[2018-12-25] MEDS ORDERED: Sodium Chloride 0.9% 80 ML IV SCH (20:00)
[2018-12-25] MEDS ORDERED: Iopamidol 612 MG/ML 150 ML Bottle IV SCH (20:00)
[2018-12-25] MEDS: Sodium Chloride 0.9% 10 ML Syringe FLUSH PRN ×2 (20:04→20:12)
--- NOTE | 2018-12-25 20:32 | CRLCT ---
INDICATION: Abdominal pain, history many abdominal surgeries TECHNIQUE: CT Abdomen and pelvis with i.v. contrast. Coronal and sagittal reformats were obtained. CONTRAST: 124 mL Isovue 300 COMPARISON: 07/02/2018 FINDINGS: Lower chest: There is a 7 mm ill-defined nodule present in the posterior right lower lobe. This region was not included on prior scan for direct comparison. Liver: There is a 9 mm cyst present in the right anterior segment of the liver. Spleen: Unremarkable. Pancreas: Unremarkable. Gallbladder: Previous cholecystectomy noted with mild intra and mild to moderate extrahepatic biliary ductal dilatation seen. The appearance is similar to prior exam. Kidney: A 1 mm stone is seen in the lower pole of the left kidney. There is a 2 mm stone present in the left ureterovesicular junction causing mild left hydroureter, trace left renal pelviectasis, delayed enhancement of the left kidney, and left perinephric edema. Adrenal: Unremarkable. Bowel: Large amount of stool is present throughout the colon which may be due to chronic constipation. The patient is status post partial gastrectomy with Vivek-en-Y anastomosis. The appendix is not visualized. Vascular: Unremarkable. Lymph: Unremarkable. Peritoneum: Unremarkable. No pneumoperitoneum is seen. Small amount of ascites is present and is likely physiologic in origin. Pelvis: Unremarkable. Soft tissue: Unremarkable. Bone: Unremarkable for age. IMPRESSIONS: 1. There is a 2 mm stone present in the left ureterovesicular junction causing mild left hydroureter, trace left renal pelviectasis, delayed enhancement of the left kidney, and left perinephric edema. 2. There is a 7 mm ill-defined nodule present in the posterior right lower lobe. This region was not included on prior scan for direct comparison. Initial followup chest CT in 6-12 months and subsequent followup at 18-24 months is advised in accordance with the 2017 Revised Fleischner Society Recommendations. Dictated by Saud Piedra MD @ 12/25/2018 8:32:01 PM Please note that all CT scans at this facility use dose modulation, iterative reconstruction, and/or weight-based dosing when appropriate to reduce radiation dose to as low as reasonably achievable. Dictated by: Saud Piedra MD @ 12/25/2018 20:32:06 (Electronically Signed)
[2018-12-25] MEDS ORDERED: Acetaminophen 1,000 MG in Premix Bag 1 BAG IV ONE (21:05)
[2018-12-25] MEDS ORDERED: Ketorolac 30 MG/ML SDV IVPUSH ONE (21:18)
[2018-12-25 22:05] VITALS: BP 128/81
== END 2018-12-25 22:21 | disposition home or self-care (01) ==
LOC: JP.ED 18:38
DX: N13.4 Hydroureter (principal); N20.2 Calculus of kidney with calculus of ureter; J44.9 Chronic obstructive pulmonary disease, unspecified; E66.9 Obesity, unspecified; Z91.018 Allergy to other foods; Z88.8 Allergy status to other drugs, medicaments and biological substances; Z88.5 Allergy status to narcotic agent; Z79.899 Other long term (current) drug therapy
CPT/HCPCS: 36415; 74177; 80048; 81001; 85027; 96361; 96374; 96375; 99284; C1751; J1170; J1642; J1885; J2405; J7030; J7120

== ENCOUNTER 2019-06-05 15:13 | Emergency (ER) | payer BC ==
[2019-06-05 15:38] VITALS: BP 129/78; PULSE 82
--- NOTE | 2019-06-05 15:55 | EDM.PDOC ---
ED HPI GENERAL MEDICAL PROBLEM - General Chief Complaint: Abdominal Pain Stated Complaint: EXTREME ABD PAIN AND VOMITTING Time Seen by Provider: 06/05/19 15:35 Source of Information: Reports: Patient History Limitations: Reports: No Limitations - History of Present Illness INITIAL COMMENTS - FREE TEXT/NARRATIVE: 43-year-old female with abdominal cramps, nausea and diarrhea for the past 48 hours. She felt better when she was getting her infusion, but after she tried to eat something it got worse. She called the clinic and was told to come in here and get it checked out. No fevers or chills, no radiation of pain to her back, no abdominal distention. Pain seemed to start after she swung a rake had a dog and sort of fell over striking her side. She was over at the infusion center getting vitamins and fluid, also got some Zofran which she thought should help but then when she tried to eat the pain increased, so she made the call and eventually was told to come in here. Onset: Gradual Duration: Day(s): (Symptoms for 2 days) Associated Symptoms: Reports: Loss of Appetite, Malaise, Weakness. Denies: Fever/Chills, Headaches Upper Abdomen Pain Score (Numeric/FACES): 6 - Related Data Allergies Allergy/AdvReac Type Severity Reaction Status Date / Time banana Allergy Severe Swollen Verified 06/05/19 15:24 Tongue walnut Allergy Intermediate Swollen Verified 06/05/19 15:24 Tongue mold Allergy Wheezing Verified 06/05/19 15:24 morphine Allergy Hives Verified 06/05/19 15:24 poison corine extract Allergy Rash Verified 06/05/19 15:24 pollen extracts Allergy Wheezing Verified 06/05/19 15:24 DUST Allergy Unknown Wheezing Uncoded 06/05/19 15:24 SMOKE AdvReac Intermediate Bronchospas Uncoded 06/05/19 15:24 ms Home Meds: Home Meds Montelukast [Singulair] 10 mg PO DAILY #30 tab 01/10/14 [Rx] Albuterol/Ipratropium [DuoNeb 3.0-0.5 MG/3 ML] 3 ml INH BID 12/07/15 [History] Budesonide/Formoterol Fumarate [Symbicort 160-4.5 Mcg Inhaler] 2 puff IH BID [History] Lactobacillus Acidophilus [Probiotic] 1 each PO DAILY 11/09/16 [History] Levalbuterol Tartrate [Xopenex HFA] 2 puff INH Q4H PRN 11/09/16 [History] Levalbuterol HCl [Xopenex] 1.25 mg NEB Q6H PRN 11/30/16 [History] Scopolamine [Transderm-Scop] 1.5 mg TOP Q3D PRN #3 patch 02/19/17 [Rx] Cetirizine [ZyrTEC] 10 mg PO DAILY tablet 11/17/17 [Rx] Fluticasone Propionate [Flonase] 2 spray NASBOTH DAILY 12/14/17 [History] MV,Ca,Min/Iron Fum/FA/Vit K [Multi For Her Tablet] 1 tab PO DAILY 12/14/17 [ History] hydrALAZINE [Apresoline] 10 mg PO Q8H PRN 12/14/17 [History] Acetaminophen [Tylenol] 650 mg PO Q6H PRN tablet 01/04/18 [Rx] DULoxetine [Cymbalta] 20 mg PO DAILY #90 cap 01/04/18 [Rx] ALPRAZolam [Xanax] 1 mg PO TID PRN 03/18/18 [History] Formoterol/Mometasone [Dulera 100 MCG/5 MCG] 2 puff INH BID 03/18/18 [History] LORazepam [Ativan] 1 mg PO TID PRN 03/18/18 [History] Ondansetron [Zofran ODT] 4 mg PO ASDIRECTED PRN 03/18/18 [History] Lipase/Protease/Amylase [Roseann Dr 10,500 Unit Cap] 1 tab PO TID 11/28/18 [ History] Vitamin B 12 Im 1 dose IM ASDIRECTED 06/05/19 [History] Past Medical History HEENT History: Reports: Sinusitis, Other (See Below) Other HEENT History: TMJ. soften Palate. polyps on larynx Cardiovascular History: Reports: Heart Murmur, Other (See Below) Other Cardiovascular History: Mitral Valve Regurgitation. Left heart faliure "stiff" Respiratory History: Reports: Asthma, Bronchitis, Recurrent, COPD, Intubation, Previous, Pneumonia, Recurrent, Pneumothorax, Sleep Apnea, SOB, Other (See Below ) Other Respiratory History: polyp on larynx; intubated x2 after "quit breathing" . 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: Polycystic Ovaries, Musculoskeletal History: Reports: Back Pain, Chronic, Fracture, Fibromyalgia, Other (See Below) Other Musculoskeletal History: knee/ankle pain bilateral Neurological History: Reports: Concussion, Headaches, Chronic, Migraines, Seizure, Vertigo Psychiatric History: Reports: Anxiety, Depression, Eating Disorders, Mood Swings , Panic Attack Endocrine/Metabolic History: Reports: Obesity/BMI 30+, Vitamin D Deficiency, Other (See Below) Other Endocrine/Metabolic History: prediabetic/adrenal gland deficiency Hematologic History: Reports: Anemia, B12 Deficiency, Blood Transfusion(s), Folic Acid, Iron Deficiency Immunologic History: Reports: Other (See Below) Other Immunologic History: due to steriod use for medical reasons, "they" feel her immune system is compromised Oncologic (Cancer) History: Reports: None Dermatologic History: Reports: Cellulitis, Other (See Below) Other Dermatologic History: biopsy of face for moles - Infectious Disease History Infectious Disease History: Reports: Chicken Pox Other Infectious Disease History: Viral meningitis - Past Surgical History HEENT Surgical History: Reports: LASIK, Oral Surgery Cardiovascular Surgical History: Reports: Other (See Below) Other Cardiovascular Surgeries/Procedures: angiogram Respiratory Surgical History: Reports: None GI Surgical History: Reports: Cholecystectomy, EGD, Esophageal Dilatation, Hernia Repair/Other, Nigel Fundoplication, Other (See Below) Other GI Surgeries/Procedures: States 39 abdomenal surgeries in 2 years Female Surgical History: Reports: Section, Tubal Ligation Musculoskeletal Surgical History: Reports: None, Other (See Below) Other Musculoskeletal Surgeries/Procedures:: port l chest Dermatological Surgical History: Reports: Skin Biopsy Social & Family History - Family History Family Medical History: Noncontributory Cardiac: Reports: Pacemaker Respiratory: Reports: Asthma, COPD, Other (See Below) Other Respiratory Family Hisory: bronchitis GI: Reports: Irritable Bowel Syndrome OBGYN: Reports: Musculoskeletal: Reports: Arthritis Neurological: Reports: Cerebral Aneurysms Psychiatric: Reports: Anxiety, Depression Endocrine/Metabolic: Reports: Diabetes, type II, Hypothyroidism, Obesity/MBI 30+ , Vitamin D Deficiency Hematologic: Reports: B12 Deficiency Immunologic: Reports: None Oncologic: Reports: Brain, Lung, Skin - Tobacco Use Smoking Status *Q: Never Smoker Second Hand Smoke Exposure: No - Caffeine Use Caffeine Use: Reports: Coffee Other Caffeine Use: 2 cups coffee per day and 1-2 sodas Caffeine Use Comment: 2-3 cups daily - Recreational Drug Use Recreational Drug Use: No - Living Situation & Occupation Living situation: Reports: , with Family Occupation: Employed ED ROS GENERAL - Review of Systems Review Of Systems: See Below Constitutional: Reports: Malaise. Denies: Fever, Chills HEENT: Reports: No Symptoms Respiratory: Denies: Shortness of Breath Cardiovascular: Denies: Chest Pain GI/Abdominal: Reports: Abdominal Pain, Diarrhea, Nausea, Vomiting : Reports: No Symptoms Skin: Reports: No Symptoms Neurological: Reports: Weakness ED EXAM, GI/ABD - Physical Exam Exam: See Below Exam Limited By: No Limitations General Appearance: Alert, Mild Distress (Looks uncomfortable) Eyes: Right: Normal Appearance (No jaundice) Respiratory/Chest: No Respiratory Distress, Lungs Clear Cardiovascular: Regular Rate, Rhythm. No: Tachycardia GI/Abdominal Exam: Normal Bowel Sounds, Soft, Tender (Diffuse tenderness to palpation mild guarding). No: Distended Extremities: Arm Pain. No: Pedal Edema Neurological: Alert, Oriented Course - Vital Signs Last Recorded V/S: Last Vital Signs Temp 98.2 F 06/05/19 15:37 Pulse 82 06/05/19 15:37 Resp 14 06/05/19 15:37 BP 129/78 06/05/19 15:37 Pulse Ox 99 06/05/19 15:37 - Orders/Labs/Meds Labs: Laboratory Tests 06/05/19 06/05/19 Range/Units 16:11 16:11 WBC 4.5 (4.5-11.0) K/uL RBC 3.41 (3.30-5.50) M/uL Hgb 10.2 L (12.0-15.0) g/dL Hct 31.6 L (36.0-48.0) % MCV 93 (80-98) fL MCH 30 (27-31) pg MCHC 32 (32-36) % Plt Count 252 (150-400) K/uL Neut % (Auto) 55 (36-66) % Lymph % (Auto) 34 (24-44) % [place] % (Auto) 7 H (2-6) % Eos % (Auto) 3 (2-4) % Baso % (Auto) 1 (0-1) % Sodium 142 (140-148) mmol/L Potassium 4.1 (3.6-5.2) mmol/L Chloride 108 (100-108) mmol/L Carbon Dioxide 28 (21-32) mmol/L Anion Gap 5.7 (5.0-14.0) mmol/L BUN 12 (7-18) mg/dL Creatinine 0.6 (0.6-1.0) mg/dL Est Cr Clr Drug Dosing 114.34 mL/min Estimated GFR (MDRD) > 60 (>60) Glucose 70 L (74-106) mg/dL Calcium 8.3 L (8.5-10.1) mg/dL Total Bilirubin 0.2 (0.2-1.0) mg/dL AST 13 L (15-37) U/L ALT 18 (12-78) U/L Alkaline Phosphatase 75 (46-116) U/L Total Protein 5.9 L (6.4-8.2) g/dL Albumin 3.0 L (3.4-5.0) g/dL Globulin 2.9 (2.3-3.5) g/dL Albumin/Globulin Ratio 1.0 L (1.2-2.2) Amylase 29 (25-115) U/L Lipase 63 L (73-393) U/L Meds: Medications Discontinued Medications Generic Name Dose Route Start Last Admin Trade Name Freq PRN Reason Stop Dose Admin Heparin Sodium (Porcine) 500 units 06/05/19 17:58 06/05/19 18:07 Heparin Lock Flush 100 Units/Ml FLUSH 500 units ASDIRECTED PRN Administration IV Use Sodium Chloride 100 mls @ 3 mls/sec 06/05/19 17:00 06/05/19 17:15 Normal Saline IV 4 mls/sec ASDIRECTED ALEX Administration Iopamidol 100 ml 06/05/19 17:00 06/05/19 17:14 Isovue-300 (61%) IV 100 ml . DIRECTED ALEX Administration Sodium Chloride 10 ml 06/05/19 17:00 06/05/19 17:14 Saline Flush FLUSH 06/05/19 17:01 10 ml ONETIME ONE Administration - Re-Assessments/Exams Free Text/Narrative Re-Assessment/Exam: 06/05/19 15:54 CBC, CMP, amylase and lipase obtained. She'll likely need a CT with IV contrast after labs return. 06/05/19 17:07 Labs are all reassuring, CT of the abdomen and pelvis with IV contrast was ordered. 06/05/19 17:53 CT also was normal and stable baseline. Patient was starting to improve but still has some nausea and discomfort. She'll be discharged with 5 doses of Zofran to use through the weekend along with 6 hydrocodone and can increase her diet as tolerated. She can return if worsening. Departure - Departure Time of Disposition: 18:15 Disposition: Home, Self-Care 01 Clinical Impression: Gastroenteritis Abdominal pain Qualifiers: Abdominal location: generalized Qualified Code(s): R10.84 - Generalized abdominal pain - Discharge Information Instructions: Viral Gastroenteritis, Adult, [id number] Referrals: Abran Roca Sr, MD [Primary Care Provider] - Forms: ED Department Discharge Care Plan Goals: Continue any current medications, concentrated on fluids and increase diet and activity as tolerated. Use Zofran for nausea and pain medication as directed if needed. Return over the next several days if worsening.
[2019-06-05] MEDS ORDERED: Iopamidol 612 MG/ML 100 ML Bottle IV SCH (17:00)
[2019-06-05] MEDS ORDERED: Sodium Chloride 0.9% 10 ML Syringe FLUSH ONE (17:00)
[2019-06-05] MEDS ORDERED: Sodium Chloride 0.9% 100 ML IV SCH (17:00)
--- NOTE | 2019-06-05 17:51 | CRLCT ---
INDICATION: Abdominal pain. TECHNIQUE: CT abdomen and pelvis acquired with IV contrast. COMPARISON: CT 12/25/2018 FINDINGS: Lower chest: Unremarkable. Liver: Subcentimeter low-density lesion in the right hepatic lobe is stable and too small to characterize. No new liver abnormality. Spleen: Unremarkable. Pancreas: Unremarkable. Gallbladder and bile ducts: Cholecystectomy. Kidneys: Punctate nonobstructing calculus in the lower pole of the left kidney. No hydronephrosis. No focal renal lesion. Adrenal glands: Unremarkable. GI tract: Gastric bypass changes noted. Appendix is normal. No acute bowel abnormality. Vascular structures: No sign of aneurysm. 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 No lymphadenopathy by CT size criteria. Miscellaneous: Small amount of free fluid in the pelvis may be physiologic. No free air. Pelvic Organs: 1.7 left ovarian cyst. Uterus and urinary bladder appear normal. Bones: No acute abnormality. No suspicious bone lesion. IMPRESSION: 1. No acute abnormality in the abdomen or pelvis. 2. Stable punctate nonobstructing calculus in the lower pole of the left kidney. 3. Stable prominent shotty mesenteric lymph nodes in the left abdomen with stable mild mesenteric fat stranding. 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 Dictated by Иван Delcid MD @ 06/05/2019 5:49:18 PM Please note that all CT scans at this facility use dose modulation, iterative reconstruction, and/or weight-based dosing when appropriate to reduce radiation dose to as low as reasonably achievable. Dictated by: Иван Delcid MD @ 06/05/2019 17:49:27 (Electronically Signed)
== END 2019-06-05 18:15 | disposition home or self-care (01) ==
LOC: JP.ED 15:13
DX: K52.9 Noninfective gastroenteritis and colitis, unspecified (principal); J45.909 Unspecified asthma, uncomplicated; F41.9 Anxiety disorder, unspecified; F32.9 Major depressive disorder, single episode, unspecified; E66.9 Obesity, unspecified; Z88.5 Allergy status to narcotic agent; Z88.8 Allergy status to other drugs, medicaments and biological substances; Z79.899 Other long term (current) drug therapy; Z68.30 Body mass index [BMI] 30.0-30.9, adult; Z98.51 Tubal ligation status; Z90.49 Acquired absence of other specified parts of digestive tract; Z91.048 Other nonmedicinal substance allergy status; Z91.018 Allergy to other foods
CPT/HCPCS: 36415; 74177; 80053; 82150; 83690; 85025; 99284; J1642; J7030; Q9967

== ENCOUNTER 2019-10-29 08:44 | Emergency (ER) | payer BC, MEDICARE ==
[2019-10-29] MEDS ORDERED: Ondansetron 4 MG/2 ML SDV IVPUSH ONE (09:10)
[2019-10-29] MEDS ORDERED: HYDROmorphone 0.5 MG/0.5 ML Syringe IVPUSH ONE ×3 (09:13→09:42)
[2019-10-29] MEDS: Sodium Chloride 0.9% 10 ML Syringe FLUSH PRN ×4 (09:23→10:28)
--- NOTE | 2019-10-29 09:23 | EDM.PDOC ---
ED HPI GENERAL MEDICAL PROBLEM - General Chief Complaint: Upper Extremity Injury/Pain Stated Complaint: FELL ON THE ICE HURT LT SDIE OF BODY Time Seen by Provider: 10/29/19 09:22 Source of Information: Reports: Patient History Limitations: Reports: No Limitations - History of Present Illness INITIAL COMMENTS - FREE TEXT/NARRATIVE: pt fell on the ice and landed on the left side. She has swelling and deformity of the left wrist. She has pain in left elebow and left shoulder. Onset: Today, Sudden Duration: Hour(s): Location: Reports: Upper Extremity, Left, Other (pt did not hit her head. ) Associated Symptoms: Reports: No Other Symptoms Left Wrist Pain Score (Numeric/FACES): 8 Left Shoulder Pain Score (Numeric/FACES): 6 Left Hip Pain Score (Numeric/FACES): 5 - Related Data Allergies Allergy/AdvReac Type Severity Reaction Status Date / Time banana Allergy Severe Swollen Verified 06/05/19 15:24 Tongue walnut Allergy Intermediate Swollen Verified 06/05/19 15:24 Tongue mold Allergy Wheezing Verified 06/05/19 15:24 morphine Allergy Hives Verified 06/05/19 15:24 poison corine extract Allergy Rash Verified 06/05/19 15:24 pollen extracts Allergy Wheezing Verified 06/05/19 15:24 DUST Allergy Unknown Wheezing Uncoded 06/05/19 15:24 SMOKE AdvReac Intermediate Bronchospas Uncoded 06/05/19 15:24 ms Home Meds: Home Meds Montelukast [Singulair] 10 mg PO DAILY #30 tab 01/10/14 [Rx] Albuterol/Ipratropium [DuoNeb 3.0-0.5 MG/3 ML] 3 ml INH BID 12/07/15 [History] Budesonide/Formoterol Fumarate [Symbicort 160-4.5 Mcg Inhaler] 2 puff IH BID [History] Lactobacillus Acidophilus [Probiotic] 1 each PO DAILY 11/09/16 [History] Levalbuterol Tartrate [Xopenex HFA] 2 puff INH Q4H PRN 11/09/16 [History] Levalbuterol HCl [Xopenex] 1.25 mg NEB Q6H PRN 11/30/16 [History] Scopolamine [Transderm-Scop] 1.5 mg TOP Q3D PRN #3 patch 02/19/17 [Rx] Cetirizine [ZyrTEC] 10 mg PO DAILY tablet 11/17/17 [Rx] Fluticasone Propionate [Flonase] 2 spray NASBOTH DAILY 12/14/17 [History] Mv,Calcium,Min/Iron/Folic/Vitk [Multi For Her Tablet] 1 tab PO DAILY 12/14/17 [ History] hydrALAZINE [Apresoline] 10 mg PO Q8H PRN 12/14/17 [History] Acetaminophen [Tylenol] 650 mg PO Q6H PRN tablet 01/04/18 [Rx] DULoxetine [Cymbalta] 20 mg PO DAILY #90 cap 01/04/18 [Rx] ALPRAZolam [Xanax] 1 mg PO TID PRN 03/18/18 [History] Formoterol/Mometasone [Dulera 100 MCG/5 MCG] 2 puff INH BID 03/18/18 [History] LORazepam [Ativan] 1 mg PO TID PRN 03/18/18 [History] Ondansetron [Zofran ODT] 4 mg PO ASDIRECTED PRN 03/18/18 [History] Lipase/Protease/Amylase [Roseann [place] 10,500 Unit Cap] 1 tab PO TID 11/28/18 [ History] Vitamin B 12 Im 1 dose IM ASDIRECTED 06/05/19 [History] Acetaminophen/HYDROcodone [[place] 325-7.5 MG] 1 tab PO Q4H PRN #36 tab 10/30/19 [ Rx] Past Medical History HEENT History: Reports: Sinusitis, Other (See Below) Other HEENT History: TMJ. soften Palate. polyps on larynx Cardiovascular History: Reports: Heart Murmur, Other (See Below) Other Cardiovascular History: Mitral Valve Regurgitation. Left heart faliure "stiff" Respiratory History: Reports: Asthma, Bronchitis, Recurrent, COPD, Intubation, Previous, Pneumonia, Recurrent, Pneumothorax, Sleep Apnea, SOB, Other (See Below ) Other Respiratory History: polyp on larynx; intubated x2 after "quit breathing" . 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: Polycystic Ovaries, Musculoskeletal History: Reports: Back Pain, Chronic, Fracture, Fibromyalgia, Other (See Below) Other Musculoskeletal History: knee/ankle pain bilateral Neurological History: Reports: Concussion, Headaches, Chronic, Migraines, Seizure, Vertigo Psychiatric History: Reports: Anxiety, Depression, Eating Disorders, Mood Swings , Panic Attack Endocrine/Metabolic History: Reports: Obesity/BMI 30+, Vitamin D Deficiency, Other (See Below) Other Endocrine/Metabolic History: prediabetic/adrenal gland deficiency Hematologic History: Reports: Anemia, B12 Deficiency, Blood Transfusion(s), Folic Acid, Iron Deficiency Immunologic History: Reports: Other (See Below) Other Immunologic History: due to steriod use for medical reasons, "they" feel her immune system is compromised Oncologic (Cancer) History: Reports: None Dermatologic History: Reports: Cellulitis, Other (See Below) Other Dermatologic History: biopsy of face for moles - Infectious Disease History Infectious Disease History: Reports: Chicken Pox Other Infectious Disease History: Viral meningitis - Past Surgical History HEENT Surgical History: Reports: LASIK, Oral Surgery Cardiovascular Surgical History: Reports: Other (See Below) Other Cardiovascular Surgeries/Procedures: angiogram Respiratory Surgical History: Reports: None GI Surgical History: Reports: Cholecystectomy, EGD, Esophageal Dilatation, Hernia Repair/Other, Nigel Fundoplication, Other (See Below) Other GI Surgeries/Procedures: States 39 abdomenal surgeries in 2 years Female Surgical History: Reports: Section, Tubal Ligation Musculoskeletal Surgical History: Reports: None, Other (See Below) Other Musculoskeletal Surgeries/Procedures:: port l chest Dermatological Surgical History: Reports: Skin Biopsy Social & Family History - Family History Family Medical History: Noncontributory Cardiac: Reports: Pacemaker Respiratory: Reports: Asthma, COPD, Other (See Below) Other Respiratory Family Hisory: bronchitis GI: Reports: Irritable Bowel Syndrome OBGYN: Reports: Musculoskeletal: Reports: Arthritis Neurological: Reports: Cerebral Aneurysms Psychiatric: Reports: Anxiety, Depression Endocrine/Metabolic: Reports: Diabetes, type II, Hypothyroidism, Obesity/MBI 30+ , Vitamin D Deficiency Hematologic: Reports: B12 Deficiency Immunologic: Reports: None Oncologic: Reports: Brain, Lung, Skin - Tobacco Use Smoking Status *Q: Never Smoker - Caffeine Use Caffeine Use: Reports: Coffee Other Caffeine Use: 2 cups coffee per day and 1-2 sodas Caffeine Use Comment: 2-3 cups daily - Recreational Drug Use Recreational Drug Use: No - Living Situation & Occupation Living situation: Reports: , with Family Occupation: Employed Review of Systems - Review of Systems Review Of Systems: See Below Constitutional: Reports: No Symptoms Eyes: Reports: No Symptoms Ears: Reports: No Symptoms Nose: Reports: No Symptoms Mouth/Throat: Reports: No Symptoms Respiratory: Reports: No Symptoms Cardiovascular: Reports: No Symptoms GI/Abdominal: Reports: No Symptoms Genitourinary: Reports: No Symptoms Musculoskeletal: Reports: Other (pain and swelling in the left wrisr. She is tender in the left elebow , pain in the left shoulder anterior. ) Skin: Reports: No Symptoms Neurological: Reports: No Symptoms ED EXAM, GENERAL - Physical Exam Exam: See Below Free Text/Narrative:: pt arrived with alot of pain in the left wrist. She has swelling present. She has tenderness in the elebow and the shoulder. Exam Limited By: No Limitations General Appearance: Alert, Anxious, Moderate Distress Ears: Normal TMs Nose: Normal Inspection Throat/Mouth: Normal Inspection Head: Atraumatic Neck: Normal Inspection Respiratory/Chest: No Respiratory Distress Cardiovascular: Regular Rate, Rhythm GI/Abdominal: Soft, Non-Tender (Female) Exam: Deferred Rectal (Female) Exam: Deferred Back Exam: Normal Inspection Extremities: Other (pt has swelling and deformity of the left wrist. She is tender at the elebow level, her shoulder is neg. ) Neurological: Alert, Oriented, Normal Cognition Psychiatric: Anxious Course - Vital Signs Last Recorded V/S: Last Vital Signs Temp 35.6 C 10/29/19 09:06 Pulse 73 10/29/19 11:10 Resp 16 10/29/19 09:06 BP 124/78 10/29/19 11:10 Pulse Ox 99 10/29/19 09:06 - Orders/Labs/Meds Meds: Medications Discontinued Medications Generic Name Dose Route Start Last Admin Trade Name Julius PRN Reason Stop Dose Admin Heparin Sodium (Porcine) 500 units 10/29/19 11:06 10/29/19 11:22 Heparin Lock Flush 100 Units/Ml FLUSH 10/29/19 11:07 500 units ASDIRECTED ONE Administration Hydromorphone HCl 0.5 mg 10/29/19 09:13 10/29/19 09:26 Dilaudid IVPUSH 10/29/19 09:14 0.5 mg ONETIME ONE Administration Hydromorphone HCl 0.5 mg 10/29/19 09:40 10/29/19 09:52 Dilaudid IVPUSH 10/29/19 09:41 0.5 mg ONETIME ONE Administration Hydromorphone HCl 0.5 mg 10/29/19 09:42 10/29/19 09:52 Dilaudid IVPUSH 10/29/19 09:43 0.5 mg ONETIME ONE Administration Lorazepam 1.5 mg 10/29/19 10:19 10/29/19 10:24 Ativan IVPUSH 10/29/19 10:20 1.5 mg ONETIME ONE Administration Ondansetron HCl 4 mg 10/29/19 09:10 10/29/19 09:22 Zofran IVPUSH 10/29/19 09:11 4 mg ONETIME ONE Administration Sodium Chloride 10 ml 10/29/19 09:16 10/29/19 10:28 Saline Flush FLUSH 10 ml ASDIRECTED PRN Administration Keep Vein Open - Re-Assessments/Exams Free Text/Narrative Re-Assessment/Exam: 10/29/19 10:08 pt has a communited fracture of the distal radius and ulna, irregularity of the radial head. This appears to be chronic. Her shoulder is neg. 10/29/19 10:16 10/29/19 10:23 pt was given 1.5 mg odf dilaudid iv. She is still having pain. She seemes very tense. She was given ativan .5 iv. and percocet 5/325 po 10/29/19 10:33 after pt was here for a period of time She noted she was having difficulty moving the middle, ring and small finger. Shad a good pulse and good color. 10/29/19 11:02 Dr Reyes saw the pt and felt we could splint the wrist. He felt it was swelling that was causing difficulty with movement in the fingers. She will ice it and elevate it through the next 24 hours. 10/29/19 11:07 short arm post splint was applied. Pt had a good pulse. This was a plaster splint appled by the physian. 10/31/19 18:55 Departure - Departure Time of Disposition: 11:03 Disposition: Home, Self-Care 01 Condition: Fair Clinical Impression: Closed fracture distal radius and ulna - Discharge Information Instructions: Cast or Splint Care, Adult, [id number], Wrist Fracture Treated With Immobilization, [id number] Referrals: PCP,None [Primary Care Provider] - Forms: ED Department Discharge Care Plan Goals: elevate, cool pack through the day. Pt will be seen by [facility] tomorrow at 10 firteen, rtc if increased problems. percocet 5/325 q6h prn for pain # 8 Sepsis Event Note - Evaluation Sepsis Screening Result: No Definite Risk - Focused Exam Date Exam was Performed: 10/31/19 Time Exam was Performed: 18:55
[2019-10-29] MEDS ORDERED: LORazepam 2 MG/ML SDV IVPUSH ONE (10:19)
--- NOTE | 2019-10-29 10:48 | CR ---
Wrist Comp Min 3V Lt CLINICAL HISTORY: Pain, injury FINDINGS: There is a comminuted impacted fracture of the distal radius. There is a fracture through the base of the ulnar styloid. Bones appear osteopenic. Impression: Impacted comminuted fracture distal radius and fracture of the ulnar styloid
--- NOTE | 2019-10-29 10:49 | CR ---
Elbow Min 3V Lt CLINICAL HISTORY: Injury FINDINGS: No acute fracture or dislocation is noted. The fat pads are normal. There is minimal asymmetry along the lateral aspect of the radial head which is not felt to be acute. Impression: No acute fracture or dislocation.
--- NOTE | 2019-10-29 10:50 | CR ---
Shoulder Comp Lt CLINICAL HISTORY: Injury FINDINGS: No fracture or dislocation is identified. Humeral head is somewhat high right inguinal which may represent joint laxity. IMPRESSION: No fracture or dislocation Configuration suggests some joint laxity.
[2019-10-29 11:22] VITALS: BP 124/78; PULSE 73
== END 2019-10-29 11:25 | disposition home or self-care (01) ==
LOC: JP.ED 08:44
DX: S52.512A Displaced fracture of left radial styloid process, initial encounter for closed fracture (principal); S52.612A Displaced fracture of left ulna styloid process, initial encounter for closed fracture; J44.9 Chronic obstructive pulmonary disease, unspecified; E66.9 Obesity, unspecified; Z91.018 Allergy to other foods; Z88.5 Allergy status to narcotic agent; Z91.048 Other nonmedicinal substance allergy status; Z79.51 Long term (current) use of inhaled steroids; Z68.27 Body mass index [BMI] 27.0-27.9, adult; W00.0XXA Fall on same level due to ice and snow, initial encounter
CPT/HCPCS: 29125; 73030; 73080; 73110; 96374; 96375; 99283; J1170; J1642; J2060; J2405

== ENCOUNTER 2020-05-05 21:23 | Emergency (ER) | payer BC, MEDICARE ==
[2020-05-05 21:47] VITALS: BP 125/74; PULSE 84
[2020-05-05] MEDS ORDERED: Ondansetron 4 MG/2 ML SDV IVPUSH ONE (22:10)
[2020-05-05] MEDS ORDERED: Ketorolac 30 MG/ML SDV IVPUSH ONE (22:10)
[2020-05-05] MEDS ORDERED: Lactated Ringers 1,000 ML IV ONE (22:10)
--- NOTE | 2020-05-05 22:15 | EDM.PDOC ---
ED HPI GENERAL MEDICAL PROBLEM - General Chief Complaint: General Stated Complaint: BLOOD CLOTS/ABD PAIN Time Seen by Provider: 05/05/20 22:05 Source of Information: Reports: Patient, RN Notes Reviewed History Limitations: Reports: No Limitations - History of Present Illness INITIAL COMMENTS - FREE TEXT/NARRATIVE: 44-year-old female presents emergency department today complaint of feeling weak and rundown, she is having some nausea vaginal bleeding she passed a golf ball sized clot today she recently had a clinic procedure done what she is describing as a hysteroscopy with biopsies of her ovaries 2 weeks ago. Has been started on control pill by her RELIGIOUS EDUCATION DIRECTOR, but is concerned she may be anemic due to all the bleeding - Related Data Allergies Allergy/AdvReac Type Severity Reaction Status Date / Time banana Allergy Severe Swollen Verified 05/05/20 21:47 Tongue walnut Allergy Intermediate Swollen Verified 05/05/20 21:47 Tongue mold Allergy Wheezing Verified 05/05/20 21:47 morphine Allergy Hives Verified 05/05/20 21:47 poison corine extract Allergy Rash Verified 05/05/20 21:47 pollen extracts Allergy Wheezing Verified 05/05/20 21:47 DUST Allergy Unknown Wheezing Uncoded 05/05/20 21:47 SMOKE AdvReac Intermediate Bronchospas Uncoded 05/05/20 21:47 ms Home Meds: Home Meds Montelukast [Singulair] 10 mg PO DAILY #30 tab 01/10/14 [Rx] Albuterol/Ipratropium [DuoNeb 3.0-0.5 MG/3 ML] 3 ml INH BID 12/07/15 [History] Budesonide/Formoterol Fumarate [Symbicort 160-4.5 Mcg Inhaler] 2 puff IH BID 11/09/16 [History] Lactobacillus Acidophilus [Probiotic] 1 each PO DAILY 11/09/16 [History] Levalbuterol Tartrate [Xopenex HFA] 2 puff INH Q4H PRN 11/09/16 [History] Levalbuterol HCl [Xopenex] 1.25 mg NEB Q6H PRN 11/30/16 [History] Scopolamine [Transderm-Scop] 1.5 mg TOP Q3D PRN #3 patch 02/19/17 [Rx] Cetirizine [ZyrTEC] 10 mg PO DAILY tablet 11/17/17 [Rx] Fluticasone Propionate [Flonase] 2 spray NASBOTH DAILY 12/14/17 [History] Mv,Calcium,Min/Iron/Folic/Vitk [Multi For Her Tablet] 1 tab PO DAILY 12/14/17 [History] hydrALAZINE [Apresoline] 10 mg PO Q8H 12/14/17 [History] Acetaminophen [Tylenol] 650 mg PO Q6H PRN tablet 01/04/18 [Rx] DULoxetine [Cymbalta] 20 mg PO DAILY #90 cap 01/04/18 [Rx] ALPRAZolam [Xanax] 1 mg PO TID PRN 03/18/18 [History] Formoterol/Mometasone [Dulera 100 MCG/5 MCG] 2 puff INH BID 03/18/18 [History] LORazepam [Ativan] 1 mg PO TID PRN 03/18/18 [History] Ondansetron [Zofran ODT] 4 mg PO ASDIRECTED PRN 03/18/18 [History] Lipase/Protease/Amylase [Roseann Apodaca 10,500 Unit Cap] 1 tab PO TID 11/28/18 [History] Vitamin B 12 Im 1 dose IM ASDIRECTED 06/05/19 [History] clonazePAM [Clonazepam] 1 mg PO DAILY 05/05/20 [History] Past Medical History HEENT History: Reports: Sinusitis, Other (See Below) Other HEENT History: TMJ. soften Palate. polyps on larynx Cardiovascular History: Reports: Heart Murmur, Other (See Below) Other Cardiovascular History: Mitral Valve Regurgitation. Left heart faliure "stiff" Respiratory History: Reports: Asthma, Bronchitis, Recurrent, COPD, Intubation, Previous, Pneumonia, Recurrent, Pneumothorax, Sleep Apnea, SOB, Other (See Below) Other Respiratory History: polyp on larynx; intubated x2 after "quit breathing". c-pap Gastrointestinal History: Reports: Bowel Obstruction, Cholelithiasis, Chronic Constipation, Chronic Diarrhea, GERD, Hiatal Hernia, Other (See Below) Other Gastrointestinal History: cyst on bile duct Genitourinary History: Reports: Urinary Incontinence RELIGIOUS EDUCATION DIRECTOR History: Reports: Polycystic Ovaries, Musculoskeletal History: Reports: Fracture Other Musculoskeletal History: knee/ankle pain bilateral. left wrist FX 10/29/19 Neurological History: Reports: Concussion, Headaches, Chronic, Migraines, Seizure, Vertigo Psychiatric History: Reports: Anxiety, Depression, Eating Disorders, Mood Swings, Panic Attack Endocrine/Metabolic History: Reports: Obesity/BMI 30+, Vitamin D Deficiency, Other (See Below) Other Endocrine/Metabolic History: prediabetic/adrenal gland deficiency Hematologic History: Reports: Anemia, B12 Deficiency, Blood Transfusion(s), Folic Acid, Iron Deficiency Immunologic History: Reports: Other (See Below) Other Immunologic History: due to steriod use for medical reasons, "they" feel her immune system is compromised Oncologic (Cancer) History: Reports: None Dermatologic History: Reports: Cellulitis, Other (See Below) Other Dermatologic History: biopsy of face for moles - Infectious Disease History Infectious Disease History: Reports: Chicken Pox Other Infectious Disease History: Viral meningitis - Past Surgical History Head Surgeries/Procedures: Reports: None HEENT Surgical History: Reports: LASIK, Oral Surgery Cardiovascular Surgical History: Reports: Other (See Below) Other Cardiovascular Surgeries/Procedures: angiogram Respiratory Surgical History: Reports: None GI Surgical History: Reports: Cholecystectomy, EGD, Esophageal Dilatation, Hernia Repair/Other, Nigel Fundoplication, Other (See Below) Other GI Surgeries/Procedures: States 39 abdomenal surgeries in 2 years Female Surgical History: Reports: Section, Tubal Ligation Dermatological Surgical History: Reports: Skin Biopsy Social & Family History - Family History Family Medical History: Noncontributory Cardiac: Reports: Pacemaker Respiratory: Reports: Asthma, COPD, Other (See Below) Other Respiratory Family Hisory: bronchitis GI: Reports: Irritable Bowel Syndrome OBGYN: Reports: Musculoskeletal: Reports: Arthritis Neurological: Reports: Cerebral Aneurysms Psychiatric: Reports: Anxiety, Depression Endocrine/Metabolic: Reports: Diabetes, type II, Hypothyroidism, Obesity/MBI 30+, Vitamin D Deficiency Hematologic: Reports: B12 Deficiency Immunologic: Reports: None Oncologic: Reports: Brain, Lung, Skin - Tobacco Use Smoking Status *Q: Never Smoker Second Hand Smoke Exposure: No - Caffeine Use Caffeine Use: Reports: Coffee Other Caffeine Use: 2 cups coffee per day and 1-2 sodas Caffeine Use Comment: 2-3 cups daily - Recreational Drug Use Recreational Drug Use: No - Living Situation & Occupation Living situation: Reports: , with Family Occupation: Employed ED ROS GENERAL - Review of Systems Review Of Systems: See Below Constitutional: Reports: Weakness HEENT: Reports: No Symptoms Respiratory: Reports: No Symptoms Cardiovascular: Reports: No Symptoms GI/Abdominal: Reports: Abdominal Pain, Nausea. Denies: Vomiting : Reports: Irregular Menses Musculoskeletal: Reports: No Symptoms ED EXAM, GENERAL - Physical Exam Exam: See Below Exam Limited By: No Limitations General Appearance: Alert, Mild Distress Respiratory/Chest: No Respiratory Distress, Lungs Clear, Normal Breath Sounds, No Accessory Muscle Use, Chest Non-Tender Cardiovascular: Regular Rate, Rhythm, No Murmur GI/Abdominal: Soft, No Distention, No Abnormal Bruit, Tender (Generalized) Course - Vital Signs Last Recorded V/S: Last Vital Signs Temp 98.1 F 05/05/20 21:52 Pulse 84 05/05/20 21:52 Resp 16 05/05/20 21:52 BP 125/74 05/05/20 21:52 Pulse Ox 100 05/05/20 21:52 - Orders/Labs/Meds Labs: Laboratory Tests 05/05/20 05/05/20 05/05/20 Range/Units 22:21 22:21 22:21 WBC 8.6 (4.5-11.0) K/uL RBC 3.89 (3.30-5.50) M/uL Hgb 11.6 L (12.0-15.0) g/dL Hct 35.4 L (36.0-48.0) % MCV 91 (80-98) fL MCH 30 (27-31) pg MCHC 33 (32-36) % Plt Count 262 (150-400) K/uL Neut % (Auto) 91 H (36-66) % Lymph % (Auto) 8 L (24-44) % Karnes % (Auto) 1 L (2-6) % Eos % (Auto) 0 L (2-4) % Baso % (Auto) 0 (0-1) % Sodium 138 L (140-148) mmol/L Potassium 4.2 (3.6-5.2) mmol/L Chloride 107 (100-108) mmol/L Carbon Dioxide 22 (21-32) mmol/L Anion Gap 13.2 (5.0-14.0) mmol/L BUN 14 (7-18) mg/dL Creatinine 0.9 (0.6-1.0) mg/dL Est Cr Clr Drug Dosing 75.45 mL/min Estimated GFR (MDRD) > 60 (>60) Glucose 114 H (74-106) mg/dL Lactic Acid 0.8 (0.4-2.0) mmol/L Calcium 8.8 (8.5-10.1) mg/dL Total Bilirubin 0.4 D (0.2-1.0) mg/dL AST 17 (15-37) U/L ALT 29 (12-78) U/L Alkaline Phosphatase 69 (46-116) U/L Total Protein 6.8 (6.4-8.2) g/dL Albumin 3.6 (3.4-5.0) g/dL Globulin 3.2 (2.3-3.5) g/dL Albumin/Globulin Ratio 1.1 L (1.2-2.2) Meds: Medications Discontinued Medications Generic Name Dose Route Start Last Admin Trade Name Freq PRN Reason Stop Dose Admin Fentanyl 50 mcg 05/05/20 22:48 05/05/20 22:53 Sublimaze IVPUSH 05/05/20 22:49 50 mcg ONETIME ONE Administration Hydromorphone HCl 1 mg 05/06/20 00:18 05/06/20 00:25 Dilaudid IVPUSH 05/06/20 00:19 1 mg ONETIME ONE Administration Lactated Ringer's 1,000 mls @ 999 mls/hr 05/05/20 22:10 05/05/20 22:23 Ringers, Lactated IV 05/05/20 23:10 999 mls/hr BOLUS ONE Administration Sodium Chloride 76 mls @ 3.5 mls/sec 05/06/20 00:32 05/06/20 00:40 Normal Saline IV 05/06/20 00:33 3.5 mls/sec ASDIRECTED STA Administration Iopamidol 120 ml 05/06/20 00:31 05/06/20 00:40 Isovue-300 (61%) IV 05/06/20 00:32 150 ml . DIRECTED STA Administration Ketorolac Tromethamine 30 mg 05/05/20 22:10 05/05/20 22:27 Toradol IVPUSH 05/05/20 22:11 30 mg ONETIME ONE Administration Lorazepam 1 mg 05/05/20 23:24 05/05/20 23:37 Ativan IVPUSH 05/05/20 23:25 1 mg ONETIME ONE Administration Ondansetron HCl 4 mg 05/05/20 22:10 05/05/20 22:26 Zofran IVPUSH 05/05/20 22:11 4 mg ONETIME ONE Administration Departure - Departure Time of Disposition: 01:21 Disposition: Home, Self-Care 01 Condition: Fair Clinical Impression: Functional constipation - Discharge Information Instructions: Constipation, Adult, Jobs-ac-[facility] Referrals: Jojo Gil MD [Primary Care Provider] - Forms: ED Department Discharge Additional Instructions: Try the colonoscopy prep please followup with your primary care provider in 3-5 days if not better, please call return to the emergency department with worsening of symptoms., Sepsis Event Note (ED) - Evaluation Sepsis Screening Result: No Definite Risk - Focused Exam Vital Signs: Vital Signs Temp Pulse Resp BP Pulse Ox 05/05/20 21:52 98.1 F 84 16 125/74 100 05/05/20 21:45 98.1 F 84 16 125/74 100 - Assessment/Plan Plan: Assessment Acuity = acute Site and laterality = functional constipation Etiology = slow transit time Manifestations = abdominal pain Location of injury = Home Lab values = CBC, CMP within normal limits Plan Provided the colonoscopy prep follow-up primary care as needed This note was dictated using [employer] voice recognition software please call with any questions on syntax or grammar.
[2020-05-05] MEDS ORDERED: fentaNYL 100 MCG/2 ML SDV IVPUSH ONE (22:48)
[2020-05-05] MEDS ORDERED: LORazepam 2 MG/ML SDV IVPUSH ONE (23:24)
[2020-05-06] MEDS ORDERED: HYDROmorphone 1 MG/ML Syringe IVPUSH ONE (00:18)
[2020-05-06] MEDS ORDERED: Iopamidol 612 MG/ML 150 ML Bottle IV STA (00:31)
--- NOTE | 2020-05-06 01:08 | CRLCT ---
Indication: Generalized abdominal pain Technique: Contrast enhanced axial CT imaging through the abdomen and pelvis. 120 mL Isovue-300 contrast agent was administered intravenously. Sagittal and coronal reconstructions are provided. Comparison: Findings: There is no significant abnormality of the liver, spleen, pancreas, adrenal glands, and kidneys. Cholecystectomy clips are noted. Prominence of the biliary tree is presumably secondary to cholecystectomy. The portal vein and IVC are patent. There is normal caliber of the abdominal aorta. There is no abdominal lymphadenopathy. 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 There are no abnormally dilated small bowel loops. The appendix is noninflamed. There is no colonic wall thickening. There is prominent fecal material throughout the colon, suggesting constipation. No inflammatory changes are demonstrated in the mesentery. There is no free intraperitoneal fluid or air. The osseous structures are unremarkable. Impression: 1. No acute process demonstrated in the abdomen and pelvis. 2. Prominent colonic stool, suggesting constipation. Correlate clinically. Please note that all CT scans at this facility use dose modulation, iterative reconstruction, and/or weight-based dosing when appropriate to reduce radiation dose to as low as reasonably achievable. Dictated by Teresa Coello MD @ May 06 2020 12:57AM Signed by Dr. Teresa Coelol @ May 06 2020 1:06AM
== END 2020-05-06 01:42 | disposition home or self-care (01) ==
LOC: JP.ED 21:23
DX: K59.04 Chronic idiopathic constipation (principal); J44.9 Chronic obstructive pulmonary disease, unspecified; E66.9 Obesity, unspecified; R56.9 Unspecified convulsions; F41.9 Anxiety disorder, unspecified; F32.9 Major depressive disorder, single episode, unspecified; Z68.28 Body mass index [BMI] 28.0-28.9, adult; Z91.018 Allergy to other foods; Z88.5 Allergy status to narcotic agent; Z91.048 Other nonmedicinal substance allergy status; Z91.09 Other allergy status, other than to drugs and biological substances
CPT/HCPCS: 36415; 74177; 80053; 83605; 85025; 96374; 96375; 99284; J1170; J1642; J1885; J2060; J2405; J3010; J7050; J7120; Q9967

== ENCOUNTER 2021-04-21 18:49 | Emergency (ER) | payer BC, MEDICARE ==
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
[2021-04-21] MEDS ORDERED: Sodium Chloride 0.9% 10 ML Syringe FLUSH PRN (20:34)
[2021-04-21] MEDS ORDERED: methylPREDNISolone Sodium Succinate 125 MG/2 ML SDV IVPUSH ONE (20:34)
[2021-04-21] MEDS ORDERED: Albuterol/Ipratropium 3.0-0.5 MG/3 ML Neb Soln NEB ONE (20:34)
[2021-04-21] MEDS ORDERED: methylPREDNISolone Sodium Succinate 125 MG/2 ML SDV IM ONE (21:10)
--- NOTE | 2021-04-21 22:06 | CRLCR ---
For Patients: As a result of the Century Cures Act, medical imaging exams and procedure reports are released immediately into your electronic medical record. You may view this report before your referring provider. If you have questions, please contact your health care provider. INDICATION: Dyspnea TECHNIQUE: Chest radiograph 2 views COMPARISON: 06/10/2018 FINDINGS: Mediastinum: The mediastinum is normal in appearance. Mild cardiomegaly is present. Left Port-A-Cath is present without interval change. Lung: Small lung volumes are present with mild subsegmental bibasilar atelectasis noted. No sign of pleural effusion seen. No pneumothorax is identified. Bone and Soft tissue: Unremarkable for age. IMPRESSIONS: 1. Mild cardiomegaly is present. 2. Small lung volumes are present with mild subsegmental bibasilar atelectasis noted. Dictated by Saud Piedra MD @ 04/21/2021 10:03:54 PM Dictated by: Saud Piedra MD @ 04/21/2021 22:03:56 (Electronically Signed)
[2021-04-21 22:14] VITALS: BP 115/61; PULSE 83
== END 2021-04-21 23:05 | disposition home or self-care (01) ==
LOC: JP.ED 18:49
DX: J44.1 Chronic obstructive pulmonary disease with (acute) exacerbation (principal); I50.1 Left ventricular failure, unspecified; E66.9 Obesity, unspecified; Z68.34 Body mass index [BMI] 34.0-34.9, adult; Z86.16 Personal history of COVID-19; Z91.018 Allergy to other foods; Z88.5 Allergy status to narcotic agent; Z91.048 Other nonmedicinal substance allergy status; Z79.899 Other long term (current) drug therapy
CPT/HCPCS: 36415; 71046; 80053; 85025; 86140; 94640; 96372; 99285; J2930; J7620-GY

== ENCOUNTER 2022-08-02 11:31 | Emergency (ER) | payer BC, MEDICARE ==
[2022-08-02] MEDS ORDERED: HYDROmorphone 0.5 MG/0.5 ML Syringe IM ONE (12:49)
[2022-08-02 13:33] VITALS: BP 106/71; PULSE 83
== END 2022-08-02 14:44 | disposition home or self-care (01) ==
LOC: JP.ED 11:31
DX: T82.594A Other mechanical complication of infusion catheter, initial encounter (principal); J45.909 Unspecified asthma, uncomplicated; Z91.018 Allergy to other foods; Z88.6 Allergy status to analgesic agent; Z91.048 Other nonmedicinal substance allergy status; Z79.899 Other long term (current) drug therapy; Z90.49 Acquired absence of other specified parts of digestive tract
CPT/HCPCS: 71046; 96372; 99283; J1170

== ENCOUNTER 2022-10-09 19:58 | Emergency (ER) | payer BC, MEDICARE ==
[2022-10-09 21:03] VITALS: BP 136/89; PULSE 94
== END 2022-10-09 20:35 | disposition home or self-care (01) ==
LOC: JP.ED 19:58
DX: S62.522A Displaced fracture of distal phalanx of left thumb, initial encounter for closed fracture (principal); J44.9 Chronic obstructive pulmonary disease, unspecified; Z91.018 Allergy to other foods; Z88.6 Allergy status to analgesic agent; Z91.048 Other nonmedicinal substance allergy status; Z79.899 Other long term (current) drug therapy; Z86.16 Personal history of COVID-19; Z90.49 Acquired absence of other specified parts of digestive tract; X50.9XXA Other and unspecified overexertion or strenuous movements or postures, initial encounter
CPT/HCPCS: 73140-26-FA; 73140-FA; 99283; 99284

== ENCOUNTER 2022-10-16 12:15 | Emergency (ER) | payer BC, MEDICARE ==
[2022-10-16 12:52] VITALS: BP 125/71; PULSE 94
[2022-10-16] MEDS ORDERED: Albuterol/Ipratropium 3.0-0.5 MG/3 ML Neb Soln NEB ONE (14:01)
== END 2022-10-16 14:28 | disposition home or self-care (01) ==
LOC: JP.ED 12:15
DX: J20.9 Acute bronchitis, unspecified (principal); J44.9 Chronic obstructive pulmonary disease, unspecified; E66.9 Obesity, unspecified; Z68.35 Body mass index [BMI] 35.0-35.9, adult; Z91.018 Allergy to other foods; Z88.6 Allergy status to analgesic agent; Z91.048 Other nonmedicinal substance allergy status; Z79.899 Other long term (current) drug therapy; Z86.16 Personal history of COVID-19; Z90.49 Acquired absence of other specified parts of digestive tract
CPT/HCPCS: 71046; 71046-26; 94640; 99283; 99284; J7620

== ENCOUNTER 2023-01-17 09:56 | Emergency (ER) | payer BC, MEDICARE ==
[2023-01-17] MEDS ORDERED: droPERidol 5 MG/2 ML SDV IVPUSH ONE (10:27)
[2023-01-17] MEDS ORDERED: Ondansetron 4 MG/2 ML SDV IVPUSH ONE (10:27)
[2023-01-17] MEDS ORDERED: fentaNYL 50 MCG/ML SDV IVPUSH ONE (10:28)
[2023-01-17] MEDS ORDERED: Sodium Chloride 0.9% 1,000 ML IV SCH (10:30)
[2023-01-17 10:59] LABS: ESTIMATED GFR 112 mL/min (>60)
[2023-01-17 12:43] VITALS: BP 100/61; PULSE 72
== END 2023-01-17 12:45 | disposition home or self-care (01) ==
LOC: JP.ED 09:56
DX: K52.9 Noninfective gastroenteritis and colitis, unspecified (principal); J44.9 Chronic obstructive pulmonary disease, unspecified; E66.9 Obesity, unspecified; Z68.35 Body mass index [BMI] 35.0-35.9, adult; Z91.018 Allergy to other foods; Z88.5 Allergy status to narcotic agent; Z88.8 Allergy status to other drugs, medicaments and biological substances; Z91.048 Other nonmedicinal substance allergy status; Z86.16 Personal history of COVID-19
CPT/HCPCS: 36415; 74176; 74176-26; 80053; 83690; 85025; 96361; 96374; 96375; 99283; 99284-25; J1642; J1790; J2405; J3010; J7030

== ENCOUNTER 2023-05-26 17:02 | Emergency (ER) | payer BC, MEDICARE ==
[2023-05-26 20:30] LABS: BASOPHILS ABSOLUTE AUTO 0.05 K/uL (0.00-0.10); EOSINOPHILS ABSOLUTE AUTO 0.23 K/uL (0.00-0.40); EOSINOPHILS PERCENT AUTO 4.4 % (0.0-5.4); HEMATOCRIT 29.9 % (34.3-46.0); IMMATURE GRAN PERCENT AUTO 0.2 % (0.0-0.7); LYMPHOCYTES PERCENT AUTO 40.3 % (11.4-47.7); MEAN CORPUSCULAR HEMOGLOBIN 30.4 pg (31.6-35.5); MEAN CORPUSCULAR HGB CONC 33.4 g/dL (31.6-35.5); MEAN CORPUSCULAR VOLUME 90.9 fL (81.4-99.0); MONOCYTES ABSOLUTE AUTO 0.36 K/uL (0.20-0.90); MONOCYTES PERCENT AUTO 6.9 % (3.3-12.6); NEUTROPHILS ABSOLUTE AUTO 2.46 K/uL (1.0-7.6); NEUTROPHILS PERCENT AUTO 47.2 % (40.0-78.1); PLATELET COUNT,PLT 215 K/uL (130-375); RED BLOOD CELL COUNT 3.29 M/uL (3.77-5.24); WHITE BLOOD CELL COUNT,WBC 5.2 K/uL (3.2-11.0)
[2023-05-26] MEDS ORDERED: Sodium Chloride 0.9% 1,000 ML IV SCH (20:30)
[2023-05-26 20:31] LABS: IMMATURE GRAN ABSOLUTE AUTO 0.01 K/uL (0.00-0.23)
[2023-05-26] MEDS ORDERED: Ondansetron 4 MG/2 ML SDV IVPUSH ONE (20:49)
[2023-05-26 20:58] LABS: A/G RATIO 1.2 (1.2-2.2); ALANINE AMINOTRANSFERASE,ALT 25 U/L (12-78); ALBUMIN 3.1 g/dL (3.4-5.0); ALKALINE PHOSPHATASE 92 U/L (46-116); ASPARTATE AMNIOTRANSFERASE,AST 15 U/L (15-37); BILIRUBIN TOTAL 0.3 mg/dL (0.2-1.0); BLOOD UREA NITROGEN,BUN 13 mg/dL (7-18); CARBON DIOXIDE,CO2 29 mmol/L (21-32); CHLORIDE,CL 108 mmol/L (100-108); CREATININE 0.6 mg/dL (0.6-1.0); EST CRCL DRUG DOSING (CG) 109.68 mL/min; ESTIMATED GFR 112 mL/min (>60); GLUCOSE RANDOM 79 mg/dL (74-106); POTASSIUM,K 3.8 mmol/L (3.6-5.2); PROTEIN TOTAL,TP 5.7 g/dL (6.4-8.2); SODIUM,NA 142 mmol/L (140-148)
[2023-05-26 21:25] LABS: APPEARANCE,URINE CLEAR (CLEAR); BILIRUBIN,URINE NEGATIVE (NEGATIVE); COLOR,URINE YELLOW (YELLOW); GLUCOSE,URINE NEGATIVE (NEGATIVE); KETONES,URINE NEGATIVE (NEGATIVE); LEUKOCYTE ESTERASE,URINE NEGATIVE (NEGATIVE); NITRITE,URINE NEGATIVE (NEGATIVE); OCCULT BLOOD,URINE TRACE-INTACT (NEGATIVE); PROTEIN,URINE NEGATIVE (NEGATIVE)
[2023-05-26] MEDS ORDERED: Sodium Chloride 0.9% 10 ML SDV FLUSH ONE (21:28)
[2023-05-26] MEDS ORDERED: Iopamidol 612 MG/ML 100 ML Bottle IV PRN (21:28)
[2023-05-26] MEDS ORDERED: Sodium Chloride 0.9% 100 ML IV SCH (21:30)
[2023-05-26 21:55] LABS: AMORPHOUS SEDIMENT,URINE NOT SEEN; BACTERIA,URINE RARE; EPITHELIAL CELLS,URINE FEW; MUCUS,URINE RARE; RBC,URINE 0-5 (0-5); WBC,URINE 0-5 (0-5)
[2023-05-26 22:57] VITALS: BP 110/57; PULSE 61
[2023-05-26] MEDS ORDERED: HYDROmorphone 0.5 MG/0.5 ML Syringe IVPUSH STA (23:06)
== END 2023-05-27 00:24 | disposition home or self-care (01) ==
LOC: JP.ED 17:02
DX: R10.84 Generalized abdominal pain (principal); R11.0 Nausea; J44.9 Chronic obstructive pulmonary disease, unspecified; E66.9 Obesity, unspecified; Z91.018 Allergy to other foods; Z88.5 Allergy status to narcotic agent; Z91.09 Other allergy status, other than to drugs and biological substances; Z79.899 Other long term (current) drug therapy; Z68.36 Body mass index [BMI] 36.0-36.9, adult
CPT/HCPCS: 36415; 36569; 74177; 80053; 81001; 83690; 85025; 86140; 96361; 96374; 96375; 99284; J1170; J1642; J2405; J3490; J7030; Q9967

== ENCOUNTER 2023-11-02 09:07 | Emergency (ER) | payer BC, MEDICARE ==
[2023-11-02 09:26] VITALS: BP 160/58; PULSE 74
[2023-11-02 10:39] LABS: HEMATOCRIT 35.2 % (34.3-46.0); HEMOGLOBIN 11.8 g/dL (11.2-15.5); MEAN CORPUSCULAR HEMOGLOBIN 30.6 pg (31.6-35.5); MEAN CORPUSCULAR HGB CONC 33.5 g/dL (31.6-35.5); MEAN CORPUSCULAR VOLUME 91.2 fL (81.4-99.0); RED BLOOD CELL COUNT 3.86 M/uL (3.77-5.24); WHITE BLOOD CELL COUNT,WBC 5.2 K/uL (3.2-11.0)
[2023-11-02 11:00] LABS: A/G RATIO 1.1 (1.2-2.2); ALANINE AMINOTRANSFERASE,ALT 26 U/L (12-78); ALBUMIN 3.1 g/dL (3.4-5.0); ALKALINE PHOSPHATASE 103 U/L (46-116); ASPARTATE AMNIOTRANSFERASE,AST 17 U/L (15-37); BILIRUBIN DIRECT 0.08 mg/dL (0.0-0.2); BILIRUBIN TOTAL 0.3 mg/dL (0.2-1.0); PROTEIN TOTAL,TP 5.9 g/dL (6.4-8.2)
[2023-11-02] MEDS: traMADol 50 MG Tab PO ONE (11:26)
== END 2023-11-02 11:30 | disposition home or self-care (01) ==
LOC: JP.ED 09:07
DX: S39.011A Strain of muscle, fascia and tendon of abdomen, initial encounter (principal); R10.84 Generalized abdominal pain; S90.01XA Contusion of right ankle, initial encounter; I50.9 Heart failure, unspecified; J44.9 Chronic obstructive pulmonary disease, unspecified; E66.9 Obesity, unspecified; Z68.36 Body mass index [BMI] 36.0-36.9, adult; Z91.018 Allergy to other foods; Z91.048 Other nonmedicinal substance allergy status; Z88.5 Allergy status to narcotic agent; W01.0XXA Fall on same level from slipping, tripping and stumbling without subsequent striking against object, initial encounter
CPT/HCPCS: 36415; 73610-26-RT; 73610-RT; 80076; 85027; 99284; A9270-GY

== ENCOUNTER 2024-01-03 09:39 | Emergency (ER) | payer BC, MEDICARE ==
[2024-01-03] MEDS: Albuterol/Ipratropium 3.0-0.5 MG/3 ML Neb Soln NEB ONE ×2 (10:36→12:24)
[2024-01-03] MEDS: methylPREDNISolone Sodium Succinate 125 MG/2 ML SDV IVPUSH ONE ×2 (10:46→12:23)
[2024-01-03 10:47] LABS: BASOPHILS PERCENT AUTO 0.3 % (0.1-1.3); EOSINOPHILS PERCENT AUTO 0.3 % (0.0-5.4); HEMATOCRIT 34.1 % (34.3-46.0); HEMOGLOBIN 11.4 g/dL (11.2-15.5); IMMATURE GRAN ABSOLUTE AUTO 0.03 K/uL (0.00-0.23); IMMATURE GRAN PERCENT AUTO 0.5 % (0.0-0.7); LYMPHOCYTES ABSOLUTE AUTO 0.83 K/uL (0.8-3.3); LYMPHOCYTES PERCENT AUTO 12.5 % (11.4-47.7); MEAN CORPUSCULAR HEMOGLOBIN 30.3 pg (31.6-35.5); MEAN CORPUSCULAR HGB CONC 33.4 g/dL (31.6-35.5); MEAN CORPUSCULAR VOLUME 90.7 fL (81.4-99.0); MONOCYTES ABSOLUTE AUTO 0.29 K/uL (0.20-0.90); MONOCYTES PERCENT AUTO 4.4 % (3.3-12.6); NEUTROPHILS ABSOLUTE AUTO 5.46 K/uL (1.0-7.6); PLATELET COUNT,PLT 225 K/uL (130-375); RED BLOOD CELL COUNT 3.76 M/uL (3.77-5.24); WHITE BLOOD CELL COUNT,WBC 6.7 K/uL (3.2-11.0)
[2024-01-03 10:48] LABS: BASOPHILS ABSOLUTE AUTO 0.02 K/uL (0.00-0.10); EOSINOPHILS ABSOLUTE AUTO 0.02 K/uL (0.00-0.40)
[2024-01-03 11:08] LABS: A/G RATIO 1.1 (1.2-2.2); ALANINE AMINOTRANSFERASE,ALT 28 U/L (12-78); ALBUMIN 3.1 g/dL (3.4-5.0); ALKALINE PHOSPHATASE 98 U/L (46-116); ANION GAP 9.7 mmol/L (5.0-14.0); ASPARTATE AMNIOTRANSFERASE,AST 14 U/L (15-37); BILIRUBIN TOTAL 0.2 mg/dL (0.2-1.0); BLOOD UREA NITROGEN,BUN 10 mg/dL (7-18); CALCIUM 8.5 mg/dL (8.5-10.1); CARBON DIOXIDE,CO2 25 mmol/L (21-32); CHLORIDE,CL 108 mmol/L (100-108); CREATININE 0.6 mg/dL (0.6-1.0); EST CRCL DRUG DOSING (CG) 108.51 mL/min; ESTIMATED GFR 111 mL/min (>60); GLUCOSE RANDOM 92 mg/dL (74-106); POTASSIUM,K 3.7 mmol/L (3.6-5.2); SODIUM,NA 143 mmol/L (140-148)
[2024-01-03 12:29] VITALS: BP 123/81; PULSE 87
== END 2024-01-03 13:12 | disposition home or self-care (01) ==
LOC: JP.ED 09:39
DX: J44.1 Chronic obstructive pulmonary disease with (acute) exacerbation (principal); R06.01 Orthopnea; K21.9 Gastro-esophageal reflux disease without esophagitis; E66.9 Obesity, unspecified; Z91.018 Allergy to other foods; Z88.5 Allergy status to narcotic agent; Z91.048 Other nonmedicinal substance allergy status; Z86.19 Personal history of other infectious and parasitic diseases; Z86.16 Personal history of COVID-19; Z79.51 Long term (current) use of inhaled steroids; Z79.899 Other long term (current) drug therapy; Z68.38 Body mass index [BMI] 38.0-38.9, adult
CPT/HCPCS: 36415; 71046; 71046-26; 80053; 85025; 94640; 96374; 96376; 99284; 99285-25; J2930; J7620

== ENCOUNTER 2024-01-05 09:46 | Emergency (ER) | payer BC, MEDICARE ==
[2024-01-05 12:07] LABS: BASOPHILS ABSOLUTE AUTO 0.03 K/uL (0.00-0.10); BASOPHILS PERCENT AUTO 0.4 % (0.1-1.3); EOSINOPHILS ABSOLUTE AUTO 0.03 K/uL (0.00-0.40); EOSINOPHILS PERCENT AUTO 0.4 % (0.0-5.4); HEMATOCRIT 33.8 % (34.3-46.0); HEMOGLOBIN 11.2 g/dL (11.2-15.5); IMMATURE GRAN ABSOLUTE AUTO 0.06 K/uL (0.00-0.23); IMMATURE GRAN PERCENT AUTO 0.8 % (0.0-0.7); LYMPHOCYTES ABSOLUTE AUTO 0.72 K/uL (0.8-3.3); LYMPHOCYTES PERCENT AUTO 9.9 % (11.4-47.7); MEAN CORPUSCULAR HEMOGLOBIN 30.5 pg (31.6-35.5); MEAN CORPUSCULAR HGB CONC 33.1 g/dL (31.6-35.5); MEAN CORPUSCULAR VOLUME 92.1 fL (81.4-99.0); MONOCYTES ABSOLUTE AUTO 0.18 K/uL (0.20-0.90); MONOCYTES PERCENT AUTO 2.5 % (3.3-12.6); NEUTROPHILS ABSOLUTE AUTO 6.23 K/uL (1.0-7.6); PLATELET COUNT,PLT 232 K/uL (130-375); RED BLOOD CELL COUNT 3.67 M/uL (3.77-5.24); WHITE BLOOD CELL COUNT,WBC 7.3 K/uL (3.2-11.0)
[2024-01-05 12:35] LABS: A/G RATIO 1.1 (1.2-2.2); ALANINE AMINOTRANSFERASE,ALT 45 U/L (12-78); ALBUMIN 3.2 g/dL (3.4-5.0); ALKALINE PHOSPHATASE 94 U/L (46-116); ANION GAP 7.3 mmol/L (5.0-14.0); ASPARTATE AMNIOTRANSFERASE,AST 26 U/L (15-37); BILIRUBIN TOTAL 0.2 mg/dL (0.2-1.0); BLOOD UREA NITROGEN,BUN 9 mg/dL (7-18); CARBON DIOXIDE,CO2 28 mmol/L (21-32); CHLORIDE,CL 108 mmol/L (100-108); CREATININE 0.6 mg/dL (0.6-1.0); EST CRCL DRUG DOSING (CG) 108.51 mL/min; ESTIMATED GFR 111 mL/min (>60); GLUCOSE RANDOM 111 mg/dL (74-106); POTASSIUM,K 4.1 mmol/L (3.6-5.2); PRO B-TYPE NATRIUR PEPT,BNPPRO 285 pg/mL (5-125); PROTEIN TOTAL,TP 6.1 g/dL (6.4-8.2); SODIUM,NA 143 mmol/L (140-148); TROPONIN I HIGH SENSITIVITY 4.7 pg/mL (<=60.3)
[2024-01-05] MEDS: LORazepam 1 MG Tab PO ONE (13:22)
[2024-01-05] MEDS: traMADol 50 MG Tab PO ONE (13:22)
[2024-01-05 16:51] VITALS: BP 147/82; PULSE 67
== END 2024-01-05 17:10 | disposition home or self-care (01) ==
LOC: JP.ED 09:46
DX: R91.8 Other nonspecific abnormal finding of lung field (principal); J44.89 Other specified chronic obstructive pulmonary disease; K21.9 Gastro-esophageal reflux disease without esophagitis; Z91.018 Allergy to other foods; Z88.5 Allergy status to narcotic agent; Z91.048 Other nonmedicinal substance allergy status; Z86.19 Personal history of other infectious and parasitic diseases; Z86.16 Personal history of COVID-19; Z90.49 Acquired absence of other specified parts of digestive tract; Z79.51 Long term (current) use of inhaled steroids; Z79.899 Other long term (current) drug therapy
CPT/HCPCS: 36415; 71250; 80053; 83605; 83880; 84484; 85025; 85379; 93005; 99285; A9270

== ENCOUNTER 2024-01-07 10:44 | Emergency (ER) | payer BC, MEDICARE ==
[2024-01-07] MEDS ORDERED: LORazepam 2 MG/ML SDV IM ONE (11:56)
[2024-01-07 12:07] LABS: BASOPHILS ABSOLUTE AUTO 0.03 K/uL (0.00-0.10); BASOPHILS PERCENT AUTO 0.5 % (0.1-1.3); EOSINOPHILS ABSOLUTE AUTO 0.12 K/uL (0.00-0.40); HEMATOCRIT 32.7 % (34.3-46.0); HEMOGLOBIN 10.9 g/dL (11.2-15.5); IMMATURE GRAN ABSOLUTE AUTO 0.07 K/uL (0.00-0.23); IMMATURE GRAN PERCENT AUTO 1.2 % (0.0-0.7); LYMPHOCYTES ABSOLUTE AUTO 2.46 K/uL (0.8-3.3); LYMPHOCYTES PERCENT AUTO 41.6 % (11.4-47.7); MEAN CORPUSCULAR HEMOGLOBIN 30.6 pg (31.6-35.5); MEAN CORPUSCULAR HGB CONC 33.3 g/dL (31.6-35.5); MEAN CORPUSCULAR VOLUME 91.9 fL (81.4-99.0); MONOCYTES ABSOLUTE AUTO 0.37 K/uL (0.20-0.90); MONOCYTES PERCENT AUTO 6.3 % (3.3-12.6); NEUTROPHILS ABSOLUTE AUTO 2.86 K/uL (1.0-7.6); NEUTROPHILS PERCENT AUTO 48.4 % (40.0-78.1); PLATELET COUNT,PLT 235 K/uL (130-375); RED BLOOD CELL COUNT 3.56 M/uL (3.77-5.24); WHITE BLOOD CELL COUNT,WBC 5.9 K/uL (3.2-11.0)
[2024-01-07] MEDS: HYDROmorphone 0.5 MG/0.5 ML Syringe IVPUSH ONE (12:47)
[2024-01-07] MEDS: LORazepam 2 MG/ML SDV IVPUSH STA (12:52)
[2024-01-07] MEDS: HYDROmorphone 1 MG/ML Syringe IVPUSH ONE (14:13)
[2024-01-07 16:18] VITALS: BP 130/78; PULSE 74
== END 2024-01-07 16:15 | disposition home or self-care (01) ==
LOC: JP.ED 10:44
DX: Q24.8 Other specified congenital malformations of heart (principal); J44.89 Other specified chronic obstructive pulmonary disease; K21.9 Gastro-esophageal reflux disease without esophagitis; Z91.018 Allergy to other foods; Z88.5 Allergy status to narcotic agent; Z91.048 Other nonmedicinal substance allergy status; Z79.899 Other long term (current) drug therapy; Z86.19 Personal history of other infectious and parasitic diseases; Z86.16 Personal history of COVID-19; Z90.49 Acquired absence of other specified parts of digestive tract
CPT/HCPCS: 36415; 80048; 84484; 85025; 96374; 96375; 96376; 99283; J1170; J2060

== ENCOUNTER 2024-03-19 08:18 | Emergency (ER) | payer BC, MEDICARE ==
[2024-03-19 08:37] VITALS: BP 108/72; PULSE 69
[2024-03-19] MEDS: Ketorolac 30 MG/ML SDV IM ONE (09:32)
== END 2024-03-19 11:36 | disposition home or self-care (01) ==
LOC: JP.ED 08:18
DX: M16.11 Unilateral primary osteoarthritis, right hip (principal); J44.9 Chronic obstructive pulmonary disease, unspecified; E66.9 Obesity, unspecified; K21.9 Gastro-esophageal reflux disease without esophagitis; Z86.16 Personal history of COVID-19; Z90.49 Acquired absence of other specified parts of digestive tract; Z79.899 Other long term (current) drug therapy; Z79.891 Long term (current) use of opiate analgesic; Z91.018 Allergy to other foods; Z91.048 Other nonmedicinal substance allergy status; Z91.09 Other allergy status, other than to drugs and biological substances; Z88.5 Allergy status to narcotic agent; Z68.38 Body mass index [BMI] 38.0-38.9, adult
CPT/HCPCS: 73502; 96372; 99283; J1885

== ENCOUNTER 2024-07-16 09:44 | Emergency (ER) | payer BC, MEDICARE ==
[2024-07-16 10:31] LABS: BASOPHILS ABSOLUTE AUTO 0.04 K/uL (0.00-0.10); BASOPHILS PERCENT AUTO 0.8 % (0.1-1.3); EOSINOPHILS ABSOLUTE AUTO 0.25 K/uL (0.00-0.40); EOSINOPHILS PERCENT AUTO 5.1 % (0.0-5.4); HEMATOCRIT 33.5 % (34.3-46.0); HEMOGLOBIN 11.3 g/dL (11.2-15.5); IMMATURE GRAN PERCENT AUTO 0.2 % (0.0-0.7); LYMPHOCYTES PERCENT AUTO 34.6 % (11.4-47.7); MEAN CORPUSCULAR HEMOGLOBIN 30.9 pg (31.6-35.5); MEAN CORPUSCULAR HGB CONC 33.7 g/dL (31.6-35.5); MEAN CORPUSCULAR VOLUME 91.5 fL (81.4-99.0); MONOCYTES ABSOLUTE AUTO 0.33 K/uL (0.20-0.90); MONOCYTES PERCENT AUTO 6.7 % (3.3-12.6); NEUTROPHILS ABSOLUTE AUTO 2.58 K/uL (1.0-7.6); NEUTROPHILS PERCENT AUTO 52.6 % (40.0-78.1); PLATELET COUNT,PLT 245 K/uL (130-375); RED BLOOD CELL COUNT 3.66 M/uL (3.77-5.24); WHITE BLOOD CELL COUNT,WBC 4.9 K/uL (3.2-11.0)
[2024-07-16] MEDS: Sodium Chloride 0.9% 500 ML IV ONE (10:32)
[2024-07-16] MEDS: HYDROmorphone 1 MG/ML Syringe IVPUSH ONE (10:32)
[2024-07-16] MEDS: Ondansetron 4 MG/2 ML SDV IVPUSH ONE (10:32)
[2024-07-16 10:34] LABS: IMMATURE GRAN ABSOLUTE AUTO 0.01 K/uL (0.00-0.23)
[2024-07-16 10:49] LABS: INR 0.9; PROTHROMBIN TIME 9.6 sec (9.2-10.6)
[2024-07-16 10:52] LABS: A/G RATIO 1.1 (1.2-2.2); ALANINE AMINOTRANSFERASE,ALT 20 U/L (12-78); ALBUMIN 3.3 g/dL (3.4-5.0); ALKALINE PHOSPHATASE 100 U/L (46-116); ANION GAP 9.2 mmol/L (5.0-14.0); ASPARTATE AMNIOTRANSFERASE,AST 17 U/L (15-37); BILIRUBIN TOTAL 0.3 mg/dL (0.2-1.0); BLOOD UREA NITROGEN,BUN 12 mg/dL (7-18); CALCIUM 8.6 mg/dL (8.5-10.1); CARBON DIOXIDE,CO2 28 mmol/L (21-32); CHLORIDE,CL 105 mmol/L (100-108); CREATININE 0.7 mg/dL (0.6-1.0); EST CRCL DRUG DOSING (CG) 93.01 mL/min; ESTIMATED GFR 107 mL/min (>60); GLUCOSE RANDOM 93 mg/dL (74-106); PROTEIN TOTAL,TP 6.2 g/dL (6.4-8.2); SODIUM,NA 142 mmol/L (140-148)
[2024-07-16] MEDS: Iopamidol 612 MG/ML 100 ML Bottle IV SCH (11:04)
[2024-07-16] MEDS: Sodium Chloride 0.9% 60 ML IV SCH (11:04)
[2024-07-16] MEDS: Sodium Chloride 0.9% 10 ML Syringe FLUSH ONE (11:23)
[2024-07-16] MEDS: HYDROmorphone 0.5 MG/0.5 ML Syringe IVPUSH ONE (11:49)
[2024-07-16 11:54] VITALS: BP 112/59; PULSE 71
[2024-07-16] MEDS: Mineral Oil 133 ML BOTTLE RECTAL ONE (12:20)
[2024-07-16 13:28] LABS: APPEARANCE,URINE SLIGHTLY CLOUDY (CLEAR); BILIRUBIN,URINE NEGATIVE (NEGATIVE); COLOR,URINE YELLOW (YELLOW); GLUCOSE,URINE NEGATIVE (NEGATIVE); KETONES,URINE NEGATIVE (NEGATIVE); LEUKOCYTE ESTERASE,URINE NEGATIVE (NEGATIVE); NITRITE,URINE NEGATIVE (NEGATIVE); OCCULT BLOOD,URINE NEGATIVE (NEGATIVE); PROTEIN,URINE NEGATIVE (NEGATIVE); UROBILINOGEN,URINE 0.2 EU/dL (0.2-1.0)
[2024-07-16 13:38] LABS: BACTERIA,URINE FEW; EPITHELIAL CELLS,URINE FEW; RBC,URINE 0-5 (0-5)
[2024-07-16 13:39] LABS: AMORPHOUS SEDIMENT,URINE NOT SEEN; MUCUS,URINE NOT SEEN
== END 2024-07-16 13:46 | disposition home or self-care (01) ==
LOC: JP.ED 09:44
DX: K59.00 Constipation, unspecified (principal); J44.9 Chronic obstructive pulmonary disease, unspecified; K21.9 Gastro-esophageal reflux disease without esophagitis; E66.9 Obesity, unspecified; Z90.49 Acquired absence of other specified parts of digestive tract; Z79.899 Other long term (current) drug therapy; Z79.891 Long term (current) use of opiate analgesic; Z91.018 Allergy to other foods; Z88.5 Allergy status to narcotic agent; Z91.048 Other nonmedicinal substance allergy status
CPT/HCPCS: 36415; 74177; 74177-26; 80053; 81001; 83690; 85025; 85610; 96361; 96374; 96375; 96376; 99284; 99284-25; A9270-GY; J1171; J2405; J3490; J7030; Q9967

== ENCOUNTER 2024-09-22 17:21 | Emergency (ER) | payer BC, MEDICARE ==
[2024-09-22] MEDS: Ondansetron 4 MG/2 ML SDV IVPUSH ONE (18:24)
[2024-09-22 18:26] LABS: BASOPHILS ABSOLUTE AUTO 0.06 K/uL (0.00-0.10); BASOPHILS PERCENT AUTO 0.9 % (0.1-1.3); EOSINOPHILS ABSOLUTE AUTO 0.16 K/uL (0.00-0.40); EOSINOPHILS PERCENT AUTO 2.5 % (0.0-5.4); HEMATOCRIT 33.5 % (34.3-46.0); HEMOGLOBIN 11.5 g/dL (11.2-15.5); IMMATURE GRAN PERCENT AUTO 0.2 % (0.0-0.7); LYMPHOCYTES ABSOLUTE AUTO 1.43 K/uL (0.8-3.3); LYMPHOCYTES PERCENT AUTO 22.4 % (11.4-47.7); MEAN CORPUSCULAR HEMOGLOBIN 31.8 pg (31.6-35.5); MEAN CORPUSCULAR HGB CONC 34.3 g/dL (31.6-35.5); MEAN CORPUSCULAR VOLUME 92.5 fL (81.4-99.0); MONOCYTES ABSOLUTE AUTO 0.43 K/uL (0.20-0.90); MONOCYTES PERCENT AUTO 6.8 % (3.3-12.6); NEUTROPHILS ABSOLUTE AUTO 4.28 K/uL (1.0-7.6); NEUTROPHILS PERCENT AUTO 67.2 % (40.0-78.1); PLATELET COUNT,PLT 255 K/uL (130-375); RED BLOOD CELL COUNT 3.62 M/uL (3.77-5.24); WHITE BLOOD CELL COUNT,WBC 6.4 K/uL (3.2-11.0)
[2024-09-22 18:27] LABS: IMMATURE GRAN ABSOLUTE AUTO 0.01 K/uL (0.00-0.23)
[2024-09-22] MEDS: Sodium Chloride 0.9% 1,000 ML IV ONE (18:27)
[2024-09-22] MEDS: HYDROmorphone 0.5 MG/0.5 ML Syringe IVPUSH ONE (18:31)
[2024-09-22 18:46] LABS: A/G RATIO 1.1 (1.2-2.2); ALANINE AMINOTRANSFERASE,ALT 28 U/L (12-78); ALBUMIN 3.5 g/dL (3.4-5.0); ALKALINE PHOSPHATASE 100 U/L (46-116); ANION GAP 8.4 mmol/L (5.0-14.0); ASPARTATE AMNIOTRANSFERASE,AST 17 U/L (15-37); BILIRUBIN TOTAL 0.3 mg/dL (0.2-1.0); BLOOD UREA NITROGEN,BUN 17 mg/dL (7-18); CALCIUM 7.6 mg/dL (8.5-10.1); CARBON DIOXIDE,CO2 27 mmol/L (21-32); CHLORIDE,CL 105 mmol/L (100-108); CREATININE 0.7 mg/dL (0.6-1.0); EST CRCL DRUG DOSING (CG) 93.01 mL/min; ESTIMATED GFR 107 mL/min (>60); GLUCOSE RANDOM 87 mg/dL (74-106); POTASSIUM,K 3.9 mmol/L (3.6-5.2); PROTEIN TOTAL,TP 6.6 g/dL (6.4-8.2); SODIUM,NA 140 mmol/L (140-148)
[2024-09-22] MEDS: Sodium Chloride 0.9% 80 ML IV SCH (19:08)
[2024-09-22] MEDS: Iopamidol 612 MG/ML 100 ML Bottle IV SCH (19:08)
[2024-09-22 19:51] LABS: APPEARANCE,URINE CLEAR (CLEAR); BILIRUBIN,URINE NEGATIVE (NEGATIVE); COLOR,URINE YELLOW (YELLOW); GLUCOSE,URINE NEGATIVE (NEGATIVE); KETONES,URINE NEGATIVE (NEGATIVE); LEUKOCYTE ESTERASE,URINE NEGATIVE (NEGATIVE); NITRITE,URINE NEGATIVE (NEGATIVE); OCCULT BLOOD,URINE SMALL (NEGATIVE); PROTEIN,URINE NEGATIVE (NEGATIVE); UROBILINOGEN,URINE 0.2 EU/dL (0.2-1.0)
[2024-09-22 19:54] VITALS: BP 123/62; PULSE 78
[2024-09-22 19:58] LABS: AMORPHOUS SEDIMENT,URINE NOT SEEN; BACTERIA,URINE RARE; EPITHELIAL CELLS,URINE RARE; MUCUS,URINE NOT SEEN; RBC,URINE 0-5 (0-5); WBC,URINE NOT SEEN (0-5)
== END 2024-09-22 20:55 | disposition home or self-care (01) ==
LOC: JP.ED 17:21
DX: K52.9 Noninfective gastroenteritis and colitis, unspecified (principal); N93.8 Other specified abnormal uterine and vaginal bleeding; J44.89 Other specified chronic obstructive pulmonary disease; K21.9 Gastro-esophageal reflux disease without esophagitis; E66.9 Obesity, unspecified; Z68.37 Body mass index [BMI] 37.0-37.9, adult; Z98.84 Bariatric surgery status; Z90.49 Acquired absence of other specified parts of digestive tract; Z88.5 Allergy status to narcotic agent; Z91.018 Allergy to other foods; Z91.048 Other nonmedicinal substance allergy status; Z79.51 Long term (current) use of inhaled steroids; Z79.899 Other long term (current) drug therapy
CPT/HCPCS: 36415; 74177; 80053; 81001; 83605; 83690; 85025; 96361; 96374; 96375; 99284; J2405; J7030; Q9967

== ENCOUNTER 2024-10-23 10:31 | Emergency (ER) | payer BC, MEDICARE ==
[2024-10-23 11:54] LABS: BASOPHILS PERCENT AUTO 0.2 % (0.1-1.3); HEMATOCRIT 32.4 % (34.3-46.0); HEMOGLOBIN 10.9 g/dL (11.2-15.5); IMMATURE GRAN PERCENT AUTO 0.2 % (0.0-0.7); LYMPHOCYTES ABSOLUTE AUTO 0.39 K/uL (0.8-3.3); LYMPHOCYTES PERCENT AUTO 9.1 % (11.4-47.7); MEAN CORPUSCULAR HEMOGLOBIN 30.5 pg (31.6-35.5); MEAN CORPUSCULAR HGB CONC 33.6 g/dL (31.6-35.5); MEAN CORPUSCULAR VOLUME 90.8 fL (81.4-99.0); MONOCYTES ABSOLUTE AUTO 0.16 K/uL (0.20-0.90); MONOCYTES PERCENT AUTO 3.7 % (3.3-12.6); NEUTROPHILS PERCENT AUTO 86.8 % (40.0-78.1); PLATELET COUNT,PLT 207 K/uL (130-375); RED BLOOD CELL COUNT 3.57 M/uL (3.77-5.24); WHITE BLOOD CELL COUNT,WBC 4.3 K/uL (3.2-11.0)
[2024-10-23] MEDS ORDERED: Naloxone 0.4 MG/ML SDV IVPUSH PRN (12:05)
[2024-10-23 12:06] LABS: BASOPHILS ABSOLUTE AUTO 0.01 K/uL (0.00-0.10); IMMATURE GRAN ABSOLUTE AUTO 0.01 K/uL (0.00-0.23)
[2024-10-23] MEDS ORDERED: Iopamidol 755 Mg/ML 100 ML Bottle IV ONE (12:12)
[2024-10-23] MEDS ORDERED: Sodium Chloride 0.9% 100 ML IV ONE (12:12)
[2024-10-23 12:17] LABS: BLOOD UREA NITROGEN,BUN 9 mg/dL (7-18); CALCIUM 8.2 mg/dL (8.5-10.1); CARBON DIOXIDE,CO2 27 mmol/L (21-32); CHLORIDE,CL 109 mmol/L (100-108); CREATININE 0.8 mg/dL (0.6-1.0); EST CRCL DRUG DOSING (CG) 81.38 mL/min; ESTIMATED GFR 91 mL/min (>60); GLUCOSE RANDOM 116 mg/dL (74-106); POTASSIUM,K 3.6 mmol/L (3.6-5.2); SODIUM,NA 145 mmol/L (140-148)
[2024-10-23 12:21] LABS: ANION GAP 12.6 mmol/L (5.0-14.0); TROPONIN I HIGH SENSITIVITY < 4.0 pg/mL (<=60.3)
[2024-10-23] MEDS: Morphine 4 MG/ML Syringe IVPUSH ONE (12:49)
[2024-10-23] MEDS: Sodium Chloride 0.9% 10 ML Syringe FLUSH ONE (12:50)
[2024-10-23 13:41] VITALS: BP 129/80; PULSE 82
== END 2024-10-23 14:14 | disposition home or self-care (01) ==
LOC: JP.ED 10:31
DX: R06.02 Shortness of breath (principal); J44.9 Chronic obstructive pulmonary disease, unspecified; E66.9 Obesity, unspecified; Z90.49 Acquired absence of other specified parts of digestive tract; Z79.899 Other long term (current) drug therapy; Z91.018 Allergy to other foods; Z88.5 Allergy status to narcotic agent; Z91.09 Other allergy status, other than to drugs and biological substances; Z91.048 Other nonmedicinal substance allergy status; Z68.38 Body mass index [BMI] 38.0-38.9, adult
CPT/HCPCS: 36415; 71275; 80048; 84484; 85025; 96374; 99285; J2270; 99283

== ENCOUNTER 2024-10-28 12:20 | Emergency (ER) | payer BC, MEDICARE ==
[2024-10-28 12:47] VITALS: BP 133/76; PULSE 79
[2024-10-28] MEDS ORDERED: Sodium Chloride 0.9% 10 ML Syringe FLUSH PRN (13:02)
[2024-10-28] MEDS: Albuterol/Ipratropium 3.0-0.5 MG/3 ML Neb Soln NEB ONE (13:18)
[2024-10-28] MEDS: Morphine 2 MG/ML SYRINGE IVPUSH PRN (13:19)
[2024-10-28 13:22] LABS: EOSINOPHILS PERCENT AUTO 0.3 % (0.0-5.4); HEMATOCRIT 32.8 % (34.3-46.0); IMMATURE GRAN ABSOLUTE AUTO 0.03 K/uL (0.00-0.23); IMMATURE GRAN PERCENT AUTO 0.8 % (0.0-0.7); LYMPHOCYTES ABSOLUTE AUTO 0.62 K/uL (0.8-3.3); LYMPHOCYTES PERCENT AUTO 15.7 % (11.4-47.7); MEAN CORPUSCULAR HEMOGLOBIN 30.9 pg (31.6-35.5); MEAN CORPUSCULAR HGB CONC 33.5 g/dL (31.6-35.5); MEAN CORPUSCULAR VOLUME 92.1 fL (81.4-99.0); MONOCYTES ABSOLUTE AUTO 0.09 K/uL (0.20-0.90); MONOCYTES PERCENT AUTO 2.3 % (3.3-12.6); NEUTROPHILS PERCENT AUTO 80.9 % (40.0-78.1); PLATELET COUNT,PLT 212 K/uL (130-375); RED BLOOD CELL COUNT 3.56 M/uL (3.77-5.24)
[2024-10-28 13:26] LABS: EOSINOPHILS ABSOLUTE AUTO 0.01 K/uL (0.00-0.40)
[2024-10-28 13:49] LABS: ANION GAP 9.2 mmol/L (5.0-14.0); BLOOD UREA NITROGEN,BUN 18 mg/dL (7-18); CALCIUM 8.4 mg/dL (8.5-10.1); CARBON DIOXIDE,CO2 29 mmol/L (21-32); CHLORIDE,CL 106 mmol/L (100-108); CREATININE 0.7 mg/dL (0.6-1.0); EST CRCL DRUG DOSING (CG) 93.01 mL/min; ESTIMATED GFR 107 mL/min (>60); GLUCOSE RANDOM 126 mg/dL (74-106); MAGNESIUM 1.8 mg/dL (1.8-2.4); POTASSIUM,K 4.1 mmol/L (3.6-5.2); PRO B-TYPE NATRIUR PEPT,BNPPRO 106 pg/mL (5-125); SODIUM,NA 144 mmol/L (140-148)
[2024-10-28 13:50] LABS: TROPONIN I HIGH SENSITIVITY < 4.0 pg/mL (<=60.3)
[2024-10-28] MEDS: Ketorolac 30 MG/ML SDV IVPUSH ONE (14:35)
[2024-10-28] MEDS: methylPREDNISolone Sodium Succinate 125 MG/2 ML SDV IVPUSH ONE (14:36)
== END 2024-10-28 15:14 | disposition home or self-care (01) ==
LOC: JP.ED 12:20
DX: J45.901 Unspecified asthma with (acute) exacerbation (principal); E66.9 Obesity, unspecified; Z79.899 Other long term (current) drug therapy; Z88.8 Allergy status to other drugs, medicaments and biological substances; Z91.018 Allergy to other foods; Z91.048 Other nonmedicinal substance allergy status; Z88.5 Allergy status to narcotic agent; Z68.35 Body mass index [BMI] 35.0-35.9, adult
CPT/HCPCS: 36415; 71046; 80048; 83735; 83880; 84484; 85025; 85379; 93005; 93010; 94640; 96374; 96375; 99284; 99285; J1885; J2270; J2919; J7620

== ENCOUNTER 2024-11-18 10:18 | Emergency (ER) | payer BC, MEDICARE ==
[2024-11-18 12:30] VITALS: BP 148/65; PULSE 78
[2024-11-18] MEDS: Ondansetron 4 MG Tab.DIS PO ONE (13:07)
[2024-11-18] MEDS: HYDROmorphone 1 MG/ML Syringe IM ONE (13:08)
== END 2024-11-18 15:00 | disposition home or self-care (01) ==
LOC: JP.ED 10:18
DX: S63.501A Unspecified sprain of right wrist, initial encounter (principal); S09.90XA Unspecified injury of head, initial encounter; J44.89 Other specified chronic obstructive pulmonary disease; Z91.018 Allergy to other foods; Z91.048 Other nonmedicinal substance allergy status; Z79.51 Long term (current) use of inhaled steroids; Z79.899 Other long term (current) drug therapy; W00.0XXA Fall on same level due to ice and snow, initial encounter; Y93.89 Activity, other specified
CPT/HCPCS: 70450; 72125; 73110; 73562; 76377; 96372; 99284; J1171; Q0162

== ENCOUNTER 2025-01-02 20:11 | Emergency (ER) | payer BC, MEDICARE ==
[2025-01-02] MEDS ORDERED: fentaNYL 100 MCG/2 ML SDV IM ONE (20:47)
[2025-01-02] MEDS: Ondansetron 4 MG/2 ML SDV IVPUSH ONE (21:37)
[2025-01-02 21:55] VITALS: BP 136/70; PULSE 61
[2025-01-02] MEDS: fentaNYL 50 MCG/ML SDV IVPUSH ONE (22:02)
[2025-01-02] MEDS: Simethicone 125 MG Tab.Chew PO STA (22:10)
== END 2025-01-02 22:31 | disposition home or self-care (01) ==
LOC: JP.ED 20:11
DX: R10.9 Unspecified abdominal pain (principal); J45.909 Unspecified asthma, uncomplicated; K21.9 Gastro-esophageal reflux disease without esophagitis; E66.9 Obesity, unspecified; Z88.8 Allergy status to other drugs, medicaments and biological substances; Z91.018 Allergy to other foods; Z79.899 Other long term (current) drug therapy; Z90.49 Acquired absence of other specified parts of digestive tract
CPT/HCPCS: 74018; 96374; 96375; 99284; A9270; J2405; J3010; 99283

== ENCOUNTER 2025-03-03 13:49 | Emergency (ER) | payer BC, MEDICARE ==
[2025-03-03 14:22] VITALS: BP 138/71; PULSE 78
[2025-03-03 14:44] LABS: BASOPHILS ABSOLUTE AUTO 0.04 K/uL (0.00-0.10); BASOPHILS PERCENT AUTO 0.7 % (0.1-1.3); EOSINOPHILS ABSOLUTE AUTO 0.17 K/uL (0.00-0.40); EOSINOPHILS PERCENT AUTO 2.9 % (0.0-5.4); HEMATOCRIT 33.4 % (34.3-46.0); IMMATURE GRAN PERCENT AUTO 0.3 % (0.0-0.7); LYMPHOCYTES ABSOLUTE AUTO 2.16 K/uL (0.8-3.3); LYMPHOCYTES PERCENT AUTO 36.2 % (11.4-47.7); MEAN CORPUSCULAR HEMOGLOBIN 30.8 pg (31.6-35.5); MEAN CORPUSCULAR HGB CONC 32.9 g/dL (31.6-35.5); MEAN CORPUSCULAR VOLUME 93.6 fL (81.4-99.0); MONOCYTES ABSOLUTE AUTO 0.37 K/uL (0.20-0.90); MONOCYTES PERCENT AUTO 6.2 % (3.3-12.6); NEUTROPHILS PERCENT AUTO 53.7 % (40.0-78.1); PLATELET COUNT,PLT 240 K/uL (130-375); RED BLOOD CELL COUNT 3.57 M/uL (3.77-5.24)
[2025-03-03 14:45] LABS: IMMATURE GRAN ABSOLUTE AUTO 0.02 K/uL (0.00-0.23)
[2025-03-03] MEDS: LORazepam 1 MG Tab PO ONE (14:52)
[2025-03-03] MEDS: fentaNYL 50 MCG/ML SDV IM ONE (14:53)
[2025-03-03 15:08] LABS: ANION GAP 7.7 mmol/L (5.0-14.0); BLOOD UREA NITROGEN,BUN 14 mg/dL (7-18); C-REACTIVE PROTEIN < 0.50 mg/dL (<0.50); CALCIUM 9.2 mg/dL (8.5-10.1); CARBON DIOXIDE,CO2 28 mmol/L (21-32); CHLORIDE,CL 108 mmol/L (100-108); CREATININE 0.7 mg/dL (0.6-1.0); EST CRCL DRUG DOSING (CG) 92.01 mL/min; ESTIMATED GFR 107 mL/min (>60); GLUCOSE RANDOM 81 mg/dL (74-106); POTASSIUM,K 4.2 mmol/L (3.6-5.2); SODIUM,NA 144 mmol/L (140-148); TROPONIN I HIGH SENSITIVITY < 4.0 pg/mL (<=60.3)
== END 2025-03-03 16:00 | disposition home or self-care (01) ==
LOC: JP.ED 13:49
DX: J45.31 Mild persistent asthma with (acute) exacerbation (principal); G44.209 Tension-type headache, unspecified, not intractable; Z91.018 Allergy to other foods; Z91.048 Other nonmedicinal substance allergy status; Z79.899 Other long term (current) drug therapy; Z79.51 Long term (current) use of inhaled steroids; Z79.01 Long term (current) use of anticoagulants
CPT/HCPCS: 36415; 80048; 84484; 85025; 86140; A9270; J3010; 96372; 99285

== ENCOUNTER 2025-03-08 19:25 | Emergency (ER) | payer BC, MEDICARE ==
[2025-03-08 20:03] VITALS: BP 155/75; PULSE 72
== END 2025-03-08 20:42 | disposition home or self-care (01) ==
LOC: JP.ED 19:25
DX: M25.511 Pain in right shoulder (principal); J44.89 Other specified chronic obstructive pulmonary disease; Z91.018 Allergy to other foods; Z88.8 Allergy status to other drugs, medicaments and biological substances; Z91.048 Other nonmedicinal substance allergy status; Z79.51 Long term (current) use of inhaled steroids; Z79.899 Other long term (current) drug therapy
CPT/HCPCS: 71046; 71046-26; 99284

== ENCOUNTER 2025-03-16 15:13 | Emergency (ER) | payer BC, MEDICARE ==
[2025-03-16 15:38] VITALS: BP 125/67; PULSE 79
[2025-03-16 16:22] LABS: BASOPHILS ABSOLUTE AUTO 0.06 K/uL (0.00-0.10); EOSINOPHILS ABSOLUTE AUTO 0.22 K/uL (0.00-0.40); EOSINOPHILS PERCENT AUTO 3.5 % (0.0-5.4); HEMOGLOBIN 11.2 g/dL (11.2-15.5); IMMATURE GRAN PERCENT AUTO 0.3 % (0.0-0.7); LYMPHOCYTES ABSOLUTE AUTO 1.92 K/uL (0.8-3.3); LYMPHOCYTES PERCENT AUTO 30.6 % (11.4-47.7); MEAN CORPUSCULAR HEMOGLOBIN 30.5 pg (31.6-35.5); MEAN CORPUSCULAR HGB CONC 32.9 g/dL (31.6-35.5); MEAN CORPUSCULAR VOLUME 92.6 fL (81.4-99.0); MONOCYTES ABSOLUTE AUTO 0.39 K/uL (0.20-0.90); MONOCYTES PERCENT AUTO 6.2 % (3.3-12.6); NEUTROPHILS ABSOLUTE AUTO 3.66 K/uL (1.0-7.6); NEUTROPHILS PERCENT AUTO 58.4 % (40.0-78.1); PLATELET COUNT,PLT 255 K/uL (130-375); RED BLOOD CELL COUNT 3.67 M/uL (3.77-5.24); WHITE BLOOD CELL COUNT,WBC 6.3 K/uL (3.2-11.0)
[2025-03-16 16:24] LABS: IMMATURE GRAN ABSOLUTE AUTO 0.02 K/uL (0.00-0.23)
[2025-03-16] MEDS: fentaNYL 50 MCG/ML SDV IVPUSH ONE (16:31)
[2025-03-16 16:53] LABS: A/G RATIO 1.2 (1.2-2.2); ALANINE AMINOTRANSFERASE,ALT 33 U/L (12-78); ALBUMIN 3.5 g/dL (3.4-5.0); ALKALINE PHOSPHATASE 99 U/L (46-116); ANION GAP 8.4 mmol/L (5.0-14.0); ASPARTATE AMNIOTRANSFERASE,AST 17 U/L (15-37); BILIRUBIN TOTAL 0.2 mg/dL (0.2-1.0); BLOOD UREA NITROGEN,BUN 16 mg/dL (7-18); CALCIUM 7.9 mg/dL (8.5-10.1); CARBON DIOXIDE,CO2 26 mmol/L (21-32); CHLORIDE,CL 107 mmol/L (100-108); CREATININE 0.6 mg/dL (0.6-1.0); EST CRCL DRUG DOSING (CG) 107.34 mL/min; ESTIMATED GFR 111 mL/min (>60); GLUCOSE RANDOM 94 mg/dL (74-106); POTASSIUM,K 4.2 mmol/L (3.6-5.2); PROTEIN TOTAL,TP 6.5 g/dL (6.4-8.2); SODIUM,NA 141 mmol/L (140-148)
[2025-03-16] MEDS: Iopamidol 612 MG/ML 100 ML Bottle IV SCH (17:00)
[2025-03-16] MEDS: Sodium Chloride 0.9% 80 ML IV SCH (17:00)
== END 2025-03-16 18:07 | disposition home or self-care (01) ==
LOC: JP.ED 15:13
DX: R10.13 Epigastric pain (principal); R07.9 Chest pain, unspecified; M54.9 Dorsalgia, unspecified; J44.89 Other specified chronic obstructive pulmonary disease; K21.9 Gastro-esophageal reflux disease without esophagitis; Z98.84 Bariatric surgery status; Z90.49 Acquired absence of other specified parts of digestive tract; Z91.018 Allergy to other foods; Z91.048 Other nonmedicinal substance allergy status; Z79.51 Long term (current) use of inhaled steroids; Z79.899 Other long term (current) drug therapy
CPT/HCPCS: 36415; 71260; 74177; 80053; 84484; 85025; 93005; 96374; 99285; J3010; Q9967

== ENCOUNTER 2025-03-20 10:47 | Emergency (ER) | payer BC, MEDICARE ==
[2025-03-20 11:56] LABS: BASOPHILS PERCENT AUTO 0.3 % (0.1-1.3); HEMATOCRIT 34.3 % (34.3-46.0); HEMOGLOBIN 11.5 g/dL (11.2-15.5); IMMATURE GRAN ABSOLUTE AUTO 0.05 K/uL (0.00-0.23); IMMATURE GRAN PERCENT AUTO 0.6 % (0.0-0.7); LYMPHOCYTES ABSOLUTE AUTO 0.68 K/uL (0.8-3.3); LYMPHOCYTES PERCENT AUTO 8.5 % (11.4-47.7); MEAN CORPUSCULAR HEMOGLOBIN 30.6 pg (31.6-35.5); MEAN CORPUSCULAR HGB CONC 33.5 g/dL (31.6-35.5); MEAN CORPUSCULAR VOLUME 91.2 fL (81.4-99.0); MONOCYTES PERCENT AUTO 1.3 % (3.3-12.6); NEUTROPHILS ABSOLUTE AUTO 7.12 K/uL (1.0-7.6); NEUTROPHILS PERCENT AUTO 89.3 % (40.0-78.1); PLATELET COUNT,PLT 268 K/uL (130-375); RED BLOOD CELL COUNT 3.76 M/uL (3.77-5.24)
[2025-03-20 11:57] LABS: BASOPHILS ABSOLUTE AUTO 0.02 K/uL (0.00-0.10)
[2025-03-20 12:10] LABS: A/G RATIO 1.2 (1.2-2.2); ALANINE AMINOTRANSFERASE,ALT 33 U/L (12-78); ALBUMIN 3.4 g/dL (3.4-5.0); ALKALINE PHOSPHATASE 93 U/L (46-116); ANION GAP 11.8 mmol/L (5.0-14.0); ASPARTATE AMNIOTRANSFERASE,AST 12 U/L (15-37); BILIRUBIN TOTAL 0.2 mg/dL (0.2-1.0); BLOOD UREA NITROGEN,BUN 11 mg/dL (7-18); CALCIUM 8.9 mg/dL (8.5-10.1); CARBON DIOXIDE,CO2 24 mmol/L (21-32); CHLORIDE,CL 108 mmol/L (100-108); CREATININE 0.6 mg/dL (0.6-1.0); EST CRCL DRUG DOSING (CG) 107.34 mL/min; ESTIMATED GFR 111 mL/min (>60); GLUCOSE RANDOM 135 mg/dL (74-106); POTASSIUM,K 4.2 mmol/L (3.6-5.2); PROTEIN TOTAL,TP 6.3 g/dL (6.4-8.2); SODIUM,NA 144 mmol/L (140-148)
[2025-03-20 12:13] LABS: C-REACTIVE PROTEIN < 0.50 mg/dL (<0.50)
[2025-03-20 12:16] LABS: LACTIC ACID 0.9 mmol/L (0.4-2.0)
[2025-03-20] MEDS: Ketorolac 30 MG/ML SDV IVPUSH ONE (13:15)
[2025-03-20 13:28] VITALS: BP 139/76; PULSE 78
== END 2025-03-20 13:57 | disposition home or self-care (01) ==
LOC: JP.ED 10:47
DX: R56.9 Unspecified convulsions (principal); J44.9 Chronic obstructive pulmonary disease, unspecified; Z91.018 Allergy to other foods; Z91.048 Other nonmedicinal substance allergy status; Z88.8 Allergy status to other drugs, medicaments and biological substances; Z79.51 Long term (current) use of inhaled steroids; Z79.899 Other long term (current) drug therapy
CPT/HCPCS: 36415; 80053; 83605; 83690; 85025; 86140; 96374; 99284; J1885

== ENCOUNTER 2025-04-04 13:36 | Emergency (ER) | payer BC, MEDICARE | END 2025-04-04 14:54 | disposition left against medical advice (07) | LOC: JP.ED 13:36 | DX: Z53.21 Procedure and treatment not carried out due to patient leaving prior to being seen by health care provider (principal) ==

== ENCOUNTER 2025-04-06 18:19 | Emergency (ER) | payer BC, MEDICARE ==
[2025-04-06 19:32] LABS: BASOPHILS ABSOLUTE AUTO 0.00 K/uL (0.00-0.10); BASOPHILS PERCENT AUTO 0.0 % (0.1-1.3); EOSINOPHILS ABSOLUTE AUTO 0.00 K/uL (0.00-0.40); EOSINOPHILS PERCENT AUTO 0.0 % (0.0-5.4); IMMATURE GRAN ABSOLUTE AUTO 0.07 K/uL (0.00-0.23); IMMATURE GRAN PERCENT AUTO 1.3 % (0.0-0.7); LYMPHOCYTES ABSOLUTE AUTO 0.38 K/uL (0.8-3.3); LYMPHOCYTES PERCENT AUTO 7.2 % (11.4-47.7); MONOCYTES ABSOLUTE AUTO 0.08 K/uL (0.20-0.90); MONOCYTES PERCENT AUTO 1.5 % (3.3-12.6); NEUTROPHILS ABSOLUTE AUTO 4.74 K/uL (1.0-7.6); NEUTROPHILS PERCENT AUTO 90.0 % (40.0-78.1); PLATELET COUNT,PLT 237 K/uL (130-375); RED BLOOD CELL COUNT 3.51 M/uL (3.77-5.24); WHITE BLOOD CELL COUNT,WBC 5.3 K/uL (3.2-11.0)
[2025-04-06 20:08] VITALS: BP 134/62; PULSE 77
[2025-04-06 20:10] LABS: BLOOD UREA NITROGEN,BUN 19 mg/dL (7-18); CARBON DIOXIDE,CO2 27 mmol/L (21-32); CHLORIDE,CL 106 mmol/L (100-108); CREATININE 0.8 mg/dL (0.6-1.0); ESTIMATED GFR 91 mL/min (>60); GLUCOSE RANDOM 157 mg/dL (74-106); POTASSIUM,K 3.6 mmol/L (3.6-5.2); SODIUM,NA 140 mmol/L (140-148)
[2025-04-06 20:12] LABS: TROPONIN I HIGH SENSITIVITY < 4.0 pg/mL (<=60.3)
[2025-04-06] MEDS: Ketorolac 15 MG/ML SDV IVPUSH ONE (20:25)
== END 2025-04-06 21:03 | disposition home or self-care (01) ==
LOC: JP.ED 18:19
DX: J45.31 Mild persistent asthma with (acute) exacerbation (principal); J44.89 Other specified chronic obstructive pulmonary disease; E66.9 Obesity, unspecified; Z79.899 Other long term (current) drug therapy; Z79.51 Long term (current) use of inhaled steroids; Z88.8 Allergy status to other drugs, medicaments and biological substances; Z91.018 Allergy to other foods; Z91.048 Other nonmedicinal substance allergy status; Z90.49 Acquired absence of other specified parts of digestive tract
CPT/HCPCS: 36415; 80048; 84484; 85025; 93005; 94640; 96361; 96374; 99285; C1751; J1885; J7040; J7620; A9270-GY

== ENCOUNTER 2025-04-23 11:05 | Emergency (ER) | payer BC, MEDICARE ==
[2025-04-23 11:40] VITALS: BP 127/63; PULSE 76
[2025-04-23] MEDS: hydrOXYzine HCL 100 MG/2 ML SDV IM ONE (12:21)
== END 2025-04-23 14:02 | disposition home or self-care (01) ==
LOC: JP.ED 11:05
DX: S93.602A Unspecified sprain of left foot, initial encounter (principal); J44.89 Other specified chronic obstructive pulmonary disease; Z91.018 Allergy to other foods; Z91.048 Other nonmedicinal substance allergy status; Z79.899 Other long term (current) drug therapy; Z79.51 Long term (current) use of inhaled steroids; X50.1XXA Overexertion from prolonged static or awkward postures, initial encounter; Y93.89 Activity, other specified
CPT/HCPCS: 73630; 96372; 99283; J3410; 99282

== ENCOUNTER 2025-05-25 10:01 | Emergency (ER) | payer BC, MEDICARE ==
[2025-05-25 10:54] VITALS: BP 137/66
[2025-05-25 12:10] LABS: BLOOD UREA NITROGEN,BUN 12.0 mg/dL (7-18); CARBON DIOXIDE,CO2 28.0 mmol/L (21-32); CHLORIDE,CL 108.0 mmol/L (100-108); CREATININE 0.6 mg/dL (0.6-1.0); EST CRCL DRUG DOSING (CG) 107.34 mL/min; ESTIMATED GFR 111.0 mL/min (>60); GLUCOSE RANDOM 93.0 mg/dL (74-106); POTASSIUM,K 4.3 mmol/L (3.6-5.2); SODIUM,NA 144.0 mmol/L (140-148)
[2025-05-25 12:42] VITALS: PULSE 72
== END 2025-05-25 13:00 | disposition home or self-care (01) ==
LOC: JP.ED 10:01
DX: E87.70 Fluid overload, unspecified (principal); K21.9 Gastro-esophageal reflux disease without esophagitis; E66.9 Obesity, unspecified; Z88.8 Allergy status to other drugs, medicaments and biological substances; Z91.018 Allergy to other foods; Z91.09 Other allergy status, other than to drugs and biological substances; Z79.899 Other long term (current) drug therapy; Z90.49 Acquired absence of other specified parts of digestive tract
CPT/HCPCS: 36415; 71046; 71046-26; 80048; 99285

== ENCOUNTER 2025-08-14 08:26 | Emergency (ER) | payer BC, MEDICARE ==
[2025-08-14] MEDS ORDERED: Naloxone 0.4 MG/ML SDV IVPUSH PRN (09:16)
[2025-08-14 09:43] LABS: APPEARANCE,URINE CLEAR (CLEAR); GLUCOSE,URINE NEGATIVE (NEGATIVE); OCCULT BLOOD,URINE NEGATIVE (NEGATIVE)
[2025-08-14] MEDS: Prochlorperazine 10 MG/2 ML SDV IVPUSH ONE (09:44)
[2025-08-14 09:54] LABS: BASOPHILS ABSOLUTE AUTO 0.03 K/uL (0.00-0.10); BASOPHILS PERCENT AUTO 0.7 % (0.1-1.3); EOSINOPHILS ABSOLUTE AUTO 0.17 K/uL (0.00-0.40); EOSINOPHILS PERCENT AUTO 4.2 % (0.0-5.4); IMMATURE GRAN PERCENT AUTO 0.2 % (0.0-0.7); LYMPHOCYTES ABSOLUTE AUTO 1.08 K/uL (0.8-3.3); LYMPHOCYTES PERCENT AUTO 26.6 % (11.4-47.7); MONOCYTES ABSOLUTE AUTO 0.22 K/uL (0.20-0.90); MONOCYTES PERCENT AUTO 5.4 % (3.3-12.6); NEUTROPHILS ABSOLUTE AUTO 2.55 K/uL (1.0-7.6); NEUTROPHILS PERCENT AUTO 62.9 % (40.0-78.1); RED BLOOD CELL COUNT 3.68 M/uL (3.77-5.24); WHITE BLOOD CELL COUNT,WBC 4.1 K/uL (3.2-11.0)
[2025-08-14 09:59] LABS: BASE EXCESS VENOUS 0.4 mm/L; BICARBONATE,VENOUS 25.7 mmol/L; O2 SATURATION VENOUS 61.9; OXYHEMOGLOBIN 60.8 %; PCO2 VENOUS 46.9 mm/Hg; PH,VENOUS 7.358 (7.350-7.450); PO2 VENOUS 36.4 mm/Hg; TOTAL HEMOGLOBIN 11.7 g/dL (12.0-16.0)
[2025-08-14 09:59] LABS: SQUAMOUS EPITHELIAL CELLS,UR MODERATE /HPF; UROTHELIAL CELLS,URINE NOT SEEN /HPF
[2025-08-14] MEDS: MVI, Adult with Vitamin K 10 ML, Thiamine 100 MG, Folic Acid 1 MG, Magnesium Sulf 1 GM/... IV SCH (09:59)
[2025-08-14 10:12] LABS: IMMATURE GRAN ABSOLUTE AUTO 0.01 K/uL (0.00-0.23); PLATELET COUNT,PLT 220 K/uL (130-375)
[2025-08-14 10:20] LABS: A/G RATIO 1.2 (1.2-2.2); ALANINE AMINOTRANSFERASE,ALT 25 U/L (12-78); ASPARTATE AMNIOTRANSFERASE,AST 20 U/L (15-37); BILIRUBIN TOTAL 0.4 mg/dL (0.2-1.0); BLOOD UREA NITROGEN,BUN 17 mg/dL (7-18); CARBON DIOXIDE,CO2 26 mmol/L (21-32); CHLORIDE,CL 110 mmol/L (100-108); CREATININE 0.6 mg/dL (0.6-1.0); EST CRCL DRUG DOSING (CG) 107.34 mL/min; ESTIMATED GFR 111 mL/min (>60); GLUCOSE RANDOM 87 mg/dL (74-106); POTASSIUM,K 3.9 mmol/L (3.6-5.2); PROTEIN TOTAL,TP 6.3 g/dL (6.4-8.2); SODIUM,NA 144 mmol/L (140-148)
[2025-08-14 11:33] VITALS: BP 118/53; PULSE 63
== END 2025-08-14 12:22 | disposition home or self-care (01) ==
LOC: JP.ED 08:26
DX: K52.9 Noninfective gastroenteritis and colitis, unspecified (principal); E66.9 Obesity, unspecified; J44.89 Other specified chronic obstructive pulmonary disease; Z79.899 Other long term (current) drug therapy; Z79.890 Hormone replacement therapy; Z88.8 Allergy status to other drugs, medicaments and biological substances; Z91.010 Allergy to peanuts; Z91.018 Allergy to other foods; Z68.41 Body mass index [BMI] 40.0-44.9, adult
CPT/HCPCS: 36415; 80053; 81001; 82803; 83605; 83690; 83735; 85025; 86140; 96365; 96366; 96375; 99284; J0780; J1171; J1808; J3411; J7030